=== PATIENT | male | born 1940 | race Caucasian/White ===

== ENCOUNTER 2018-02-07 09:15 | Day surgery (SDC) | payer OTHER ==
[2018-02-03 10:26] LABS: Absolute Lymphocytes (CBC) 0.8 K/uL (0.7-4.9); Absolute Monocytes 0.8 K/uL (0.1-1.3); Absolute Neutrophil 6.7 K/uL (1.8-8.0); Basophils % 0.6 % (0-1.3); Hematocrit 42.5 % (39.6-49.0); Lymphocytes % 9.3 % (15.3-44.8); MCH 30.5 pg (27.0-35.0); MCV 92.9 fL (80-100); MPV 7.9 fL (7.6-11.3); Monocytes % 9.2 % (3.3-12.3); RBC Red Blood Cell Count 4.57 M/uL (4.33-5.43)
[2018-02-03 10:27] LABS: Potassium 4.8 mEq/L (3.6-5.0)
[2018-02-03 10:44] LABS: Protime INR 0.99
--- NOTE | 2018-02-03 10:52 | RAD REPORT ---
EXAM DESCRIPTION: RAD - Chest Pa And Lat (2 Views) - 02/03/2018 10:05 am CLINICAL HISTORY: Preop chest, pending cardiac catheterization and bilateral lower extremity runoff COMPARISON: CT chest January 12, 2017 TECHNIQUE: PA and lateral views of the chest were obtained. FINDINGS: The lungs are mildly fibrotic as a baseline. Right lung volume is normal. No mass or conso lidation in the right lung field. Acute failure or volume overload are not suspected. Trachea is midl ine. Sternotomy wires are in place. Chronic left pleural effusion is present. CT of from 1 year earlier showed loculation in the left bas e. There is also masslike consolidation of lung parenchyma. This is likely chronic atelectasis. Paren chymal opacification is not substantially or clearly different from the comparison. Heart size is u pper normal. Upper lobe vasculature within normal limits. No pneumothorax. No acute bony finding note d. No aortic abnormality. IMPRESSION: Chronic left base pleural and parenchymal opacification not clearly different from the s tudy 1 year earlier. No failure, acute infiltrate or other acute cardiopulmonary finding identifiable.
[2018-02-07] MEDS ORDERED: NA CHLORIDE 0.9% 500 ML ONE (10:22)
[2018-02-07] MEDS ORDERED: HEPA 1000U/500MLS 2,000 UNIT/1,000 ML BAG IV ONE (11:55)
[2018-02-07] MEDS ORDERED: FENTANYL CITR 100 MCG/2 ML ONE ×2 (11:55→16:07)
[2018-02-07] MEDS ORDERED: LIDOCAINE 1% 20 ML MDV ONE ×2 (11:55→12:44)
[2018-02-07] MEDS ORDERED: MIDAZOLAM HCL 2 MG/2 ML INJ ONE ×3 (11:55→12:54)
[2018-02-07] MEDS ORDERED: ATROPINE SULF 1 MG/10 ML SYR IV ONE (11:56)
--- NOTE | 2018-02-08 01:08 | OP ---
Date of Procedure: 02/07/2018 Surgeon: Kelechi Tam MD Machine Set Up Operator: Talya Brunson. Procedure: Abdominal angiogram with runoff. Indication: Peripheral arterial disease. Mr. Lubin is a 77-year-old white male, has known history of peripheral vascular disease, coronary art pedro bypass surgery in the past, claudication, and abnormal arterial Doppler bilaterally. Description Of Procedure: He was brought into the record label internship, had a 6-Belgian sheath introduced in the left common femoral artery. Abdominal angiogram with runoff was done using a pigtail catheter. He h ad normal common iliac artery, normal renals, and normal distal aorta. He had a complete occlusion o f the distal common femoral artery up to proximal superficial femoral artery all the way to the dista l right superficial femoral artery with good distal popliteal on the right. On the left side, he had multiple 90% stenosis in the left SFA. No attempt for intervention was done with catheters. The pa tient tolerated the procedure well. Complications: No complications. Blood Loss: 10 cc. Conscious Sedation Time: Total conscious sedation was 45 minutes. Off Track Betting Manager: Kelechi Tam M.D. Assessment: Severe peripheral arterial disease. Plan: Plan is for bilateral femoral-popliteal surgery. I will consult his surgeons and we will disc uss with him and the family later. JENN/REBEKAH Voice ID: [id number] Report ID: [id number]
== END 2018-02-07 17:30 | disposition home health service (06) ==
LOC: CCL 09:15
PROC: B40DYZZ Plain Radiography of Aorta and Bilateral Lower Extremity Arteries using Other Contrast (ICD-10-PCS; principal; 2018-02-07)
DX: I70.213 Atherosclerosis of native arteries of extremities with intermittent claudication, bilateral legs (principal); I70.92 Chronic total occlusion of artery of the extremities; I25.10 Atherosclerotic heart disease of native coronary artery without angina pectoris; I25.5 Ischemic cardiomyopathy; I65.22 Occlusion and stenosis of left carotid artery; I35.0 Nonrheumatic aortic (valve) stenosis; I10 Essential (primary) hypertension; E78.5 Hyperlipidemia, unspecified; E78.6 Lipoprotein deficiency; Z95.1 Presence of aortocoronary bypass graft; Z91.041 Radiographic dye allergy status; Z88.0 Allergy status to penicillin; Z88.8 Allergy status to other drugs, medicaments and biological substances
CPT/HCPCS: 36200; 36415; 71046; 75630; 80048; 85025; 85610; 85730; J2250 ×3; J3010 ×2; C1893

== ENCOUNTER 2018-09-06 08:25 | Inpatient (IN) | payer OTHER ==
--- OUTSIDE RECORDS SUMMARY | 2018-09-06 08:26 | XMS REPORT | Clinical Summary ---
:1940 Author Organization [facility] Address [address] [place] [address] Care Team Providers Name Role Phone Philipp Berry Unavailable Pcp, No Primary Care Provider Unavailable Allergies Active Allergy Reactions Severity Noted Date Comments Penicillins Rash Low 06/24/2015 Medications Medication Sig Dispensed Refills Start Date End Date Status timolol (TIMOPTIC) 0 01/26/2018 Active 0.5 % ophthalmic solution dorzolamide (TRUSOPT) 0 01/26/2018 Active 2 % ophthalmic solution aspirin 81 MG EC Take 81 mg by 0 Active tablet mouth daily. ascorbic acid, Take 500 mg by 0 Active vitamin C, (ASCORBIC mouth daily. ACID WITH LOBITO HIPS) 500 MG tablet MULTIVIT-MINERALS/KAREN Take by mouth 0 Active EMILIA FUM (MULTI daily. VITAMIN ORAL) naproxen Take 220 mg by 0 Active (ALEVE,ANAPROX,MIDOL) mouth as 220 MG tablet needed. diphenhydrAMINE Take 12.5 mg 0 Active (BENADRYL) 12.5 mg by mouth every chewable tablet night as needed for Allergies. vardenafil (LEVITRA) Take 20 mg by 0 Active 20 MG tablet mouth daily as needed for Erectile Dysfunction. losartan (COZAAR) 100 Take 100 mg by 0 Discontinued MG tablet mouth daily. 8 dorzolamide-timolol Place 1 drop 0 Discontinued (COSOPT) 22.3-6.8 into the left 8 mg/mL ophthalmic eye 2 (two) solutionIndications: times daily. open angle glaucoma travoprost (TRAVATAN Place 1 drop 0 Discontinued Z) 0.004 % Drop into both eyes 8 ophthalmic nightly. 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 07/14/2015 CAD (coronary artery disease) 06/24/2015 Coronary artery disease involving coronary bypass graft of [place] heart 2014 without angina pectoris Peripheral vascular disease Coronary artery disease Hyperlipidemia Hypertension Aortic stenosis Atrial fibrillation Thyroid disease Carotid artery occlusion Ischemic cardiomyopathy Encounters Date Type Specialty Care Team Description 02/14/2018 Office Visit Cardiology Ismael Napoles MD Coronary artery disease involving coronary bypass graft of [place] heart without angina pectoris (Primary Dx); PVD (peripheral vascular disease) (HCC); Peripheral vascular disease (HCC); Coronary artery disease involving [place] coronary artery of [place] heart without angina pectoris; Hyperlipidemia, unspecified hyperlipidemia type; Essential hypertension; Aortic valve stenosis, etiology of cardiac valve disease unspecified; Atrial fibrillation, unspecified type (HCC); Thyroid disease; Occlusion of right carotid artery; Ischemic cardiomyopathy after 09/05/2017 Family History Medical History Relation Name Comments Heart disease Brother Hypertension Brother Heart disease Father Hypertension Father Heart disease Mother Hypertension Mother Relation Name Status Comments Brother Father Mother Social History Tobacco Use Types Packs/Day Years Used Date Former Smoker Cigarettes 1 14 Quit: 1964 Smokeless Tobacco: Never Used Alcohol Use Drinks/Week oz/Week Comments Yes 1 Glasses of wine 4.2 ocassionaly 6 Cans of beer Sex Assigned at Date Recorded Not on file Job Start Date Occupation Industry Not on file Not on file Not on file Travel History Travel Start Travel End No recent travel history available. Last Filed Vital Signs Vital Sign Reading Time Taken Blood Pressure 160/90 02/14/2018 8:01 AM CDT Pulse 85 02/14/2018 7:21 AM CDT Temperature 36.7 C (98.1 F) 02/14/2018 7:21 AM CDT Respiratory Rate 14 02/14/2018 7:21 AM CDT Oxygen Saturation 98% 02/14/2018 7:21 AM CDT Inhaled Oxygen Concentration - - Weight 70.8 kg (156 lb) 02/14/2018 7:21 AM CDT Height 157.5 cm (5' 2") 02/14/2018 7:21 AM CDT Body Mass Index 28.53 02/14/2018 7:21 AM CDT Plan of Treatment Health Maintenance Due Date Last Done Comments INFLUENZA VACCINE 07/10/2018 Results Not on fileafter 09/05/2017 Insurance Payer Benefit Plan / Group Subscriber ID Type Phone Address MEDICARE MEDICARE A B xxxxxxxxxx Medicare Advance Directives For more information, please contact:[address] [phone] Code Status Date Activated Date Inactivated Comments Full Code 06/24/2015 11:15 PM 07/15/2015 1:18 PM This code status was determined by: Patient Full Code 06/24/2015 9:02 PM 06/24/2015 11:15 PM This code status was determined by: Patient Full Code 06/24/2015 7:23 PM 06/24/2015 9:02 PM This code status was determined by: Patient
[2018-09-06 09:19] LABS: Absolute Lymphocytes (CBC) 0.7 K/uL (0.7-4.9); Absolute Monocytes 0.6 K/uL (0.1-1.3); Basophils % 0.9 % (0-1.3); Eosinophils % 1.8 % (0-4.4); Hematocrit 37.5 % (39.6-49.0); MCH 32.9 pg (27.0-35.0); MCV 95.4 fL (80-100); MPV 7.3 fL (7.6-11.3); Monocytes % 7.8 % (3.3-12.3); RBC Red Blood Cell Count 3.93 M/uL (4.33-5.43)
[2018-09-06 09:20] LABS: Protime INR 1.05
[2018-09-06 09:40] LABS: ALT/SGPT 35 U/L (12-78); AST/SGOT 30 U/L (15-37); Albumin 3.5 g/dL (3.4-5.0); Alkaline Phosphatase 95 U/L (45-117); BUN Blood Urea Nitrogen 15 mg/dL (7-18); Bicarbonate 25 mmol/L (21-32); Bilirubin Direct 0.3 mg/dL (0-0.2); Bilirubin Total 0.8 mg/dL (0.2-1.0); Glucose Level 125 mg/dL (74-106); Lipase 228 U/L (73-393); Magnesium 2.2 mg/dL (1.8-2.4); NT PRO-BNP 3799 pg/mL (<450); Potassium 4.4 mmol/L (3.5-5.1); Sodium Level 126 mmol/L (136-145); Troponin (Emerg Dept Use Only) < 0.02 ng/mL (0.0-0.045)
--- NOTE | 2018-09-06 09:46 | EDPHYS ---
Physician Documentation [facility] Name: Jeb Lubin Sr Age: 78 yrs Sex: Male : 1940 Arrival Date: 09/06/2018 Time: 08:33 Bed 5 Private MD: ED Physician Marshal Hill HPI: 09/06 08:52 This 78 yrs old Male presents to ER via EMS with complaints of Shortness Of meggan Breath. 08:52 The patient has shortness of breath at rest, with light activity. Onset: The meggan symptoms/episode began/occurred 2 day(s) ago. Duration: The symptoms are chronic. The patient's shortness of breath has no apparent modifying factors. Associated signs and symptoms: Pertinent positives: non-productive cough. Severity of symptoms: At their worst the symptoms were mild in the emergency department the symptoms are unchanged. Historical: - Allergies: 08:40 PENICILLINS; bp - Home Meds: 08:40 Lovaza 1 gram oral cap [Active]; omega-3 fatty acids oral oral [Active]; bp losartan-hydrochlorothiazide 100-25 mg oral tab [Active]; - PMHx: 08:40 Diabetes - NIDDM; Hypertension; bp - PSHx: 08:40 CABG; bp - Immunization history:: Adult Immunizations up to date. - Social history:: Smoking status: Patient/guardian denies using tobacco. - Ebola Screening: : Patient negative for fever greater than or equal to 101.5 degrees Fahrenheit, and additional compatible Ebola Virus Disease symptoms Patient denies exposure to infectious person Patient denies travel to an Ebola-affected area in the 21 days before illness onset No symptoms or risks identified at this time. - Family history:: not pertinent. ROS: 08:52 Constitutional: Negative for fever, chills, and weight loss, Eyes: Negative for injury, meggan pain, redness, and discharge, ENT: Negative for injury, pain, and discharge, Neck: Negative for injury, pain, and swelling, Abdomen/GI: Negative for abdominal pain, nausea, vomiting, diarrhea, and constipation, Back: Negative for injury and pain, : Negative for injury, bleeding, discharge, and swelling, MS/Extremity: Negative for injury and deformity, Skin: Negative for injury, rash, and discoloration, Neuro: Negative for headache, weakness, numbness, tingling, and seizure, Psych: Negative for depression, anxiety, suicide ideation, homicidal ideation, and hallucinations, Allergy/Immunology: Negative for hives, rash, and allergies, Endocrine: Negative for neck swelling, polydipsia, polyuria, polyphagia, and marked weight changes, Hematologic/Lymphatic: Negative for swollen nodes, abnormal bleeding, and unusual bruising. 08:52 Cardiovascular: Positive for 08:52 Respiratory: Positive for cough, shortness of breath, on exertion. Exam: 08:52 Constitutional: This is a well developed, well nourished patient who is awake, alert, meggan and in no acute distress. Head/Face: Normocephalic, atraumatic. Eyes: Pupils equal round and reactive to light, extra-ocular motions intact. Lids and lashes normal. Conjunctiva and sclera are non-icteric and not injected. Cornea within normal limits. Periorbital areas with no swelling, redness, or edema. ENT: Nares patent. No nasal discharge, no septal abnormalities noted. Tympanic membranes are normal and external auditory canals are clear. Oropharynx with no redness, swelling, or masses, exudates, or evidence of obstruction, uvula midline. Mucous membranes moist. Neck: Trachea midline, no thyromegaly or masses palpated, and no cervical lymphadenopathy. Supple, full range of motion without nuchal rigidity, or vertebral point tenderness. No Meningismus. Chest/axilla: Normal chest wall appearance and motion. Nontender with no deformity. No lesions are appreciated. Cardiovascular: Regular rate and rhythm with a normal S1 and S2. No gallops, murmurs, or rubs. Normal PMI, no JVD. No pulse deficits. Abdomen/GI: Soft, non-tender, with normal bowel sounds. No distension or tympany. No guarding or rebound. No evidence of tenderness throughout. Back: No spinal tenderness. No costovertebral tenderness. Full range of motion. Male : Normal genitalia with no discharge or lesions. Skin: Warm, dry with normal turgor. Normal color with no rashes, no lesions, and no evidence of cellulitis. MS/ Extremity: Pulses equal, no cyanosis. Neurovascular intact. Full, normal range of motion. Neuro: Awake and alert, GCS 15, oriented to person, place, time, and situation. Cranial nerves II-XII grossly intact. Motor strength 5/5 in all extremities. Sensory grossly intact. Cerebellar exam normal. Normal gait. Psych: Awake, alert, with orientation to person, place and time. Behavior, mood, and affect are within normal limits. 08:52 Respiratory: mild respiratory distress is noted, Respirations: normal, Breath sounds: are clear throughout, Respiratory rate: 16 Vital Signs: 08:42 BP 146 / 101; Pulse 88; Resp 16; Temp 97; Pulse Ox 98% ; Weight 71.21 kg; bp 10:00 BP 166 / 102; Pulse 95; Resp 18; Pulse Ox 98% ; bp 12:00 BP 147 / 92; Pulse 92; Resp 17; Pulse Ox 99% ; bp MDM: 08:34 Patient medically screened. [facility] 08:55 Data reviewed: vital signs, nurses notes, lab test result(s), EKG, radiologic studies, meggan plain films. 09/06 08:35 Order name: Basic Metabolic Panel; Complete Time: 09:45 [facility] 09/06 08:35 Order name: CBC with Diff; Complete Time: 09:37 [facility] 09/06 08:35 Order name: LFT's; Complete Time: 09:45 [facility] 09/06 08:35 Order name: Magnesium; Complete Time: 09:45 [facility] 09/06 08:35 Order name: NT PRO-BNP; Complete Time: 09:45 [facility] 09/06 08:35 Order name: PT-INR; Complete Time: 09:37 [facility] 09/06 08:35 Order name: Troponin (emerg Dept Use Only); Complete Time: 09:45 [facility] 09/06 08:35 Order name: XRAY Chest (1 view) [facility] 09/06 08:35 Order name: TSH; Complete Time: 09:45 [facility] 09/06 08:35 Order name: Urine Culture [facility] 09/06 08:36 Order name: Lipase; Complete Time: 09:45 [facility] 09/06 09:47 Order name: Echo w/ Doppler [facility] 09/06 11:04 Order name: Urine Dipstick--Ancillary (enter results) 09/06 11:29 Order name: Urine Dipstick-Ancillary [facility] 09/06 08:35 Order name: EKG; Complete Time: 08:36 [facility] 09/06 08:35 Order name: Cardiac monitoring; Complete Time: 08:41 [facility] 09/06 08:35 Order name: EKG - Nurse/Tech; Complete Time: 08:41 [facility] 09/06 08:35 Order name: IV Saline Lock; Complete Time: 08:41 [facility] 09/06 08:35 Order name: Labs collected and sent; Complete Time: 08:41 [facility] 09/06 08:35 Order name: O2 Per Protocol; Complete Time: 08:41 [facility] 09/06 08:35 Order name: O2 Sat Monitoring; Complete Time: 08:41 [facility] 09/06 08:35 Order name: Urine Dipstick-Ancillary (obtain specimen); Complete Time: 11:09 [facility] 09/06 09:54 Order name: CONS Physician Consult EDMS Administered Medications: 09:46 Not Given (Duplicate Order): NS 0.9% 1000 ml IV at 125 ml/hr continuous meggan 09:58 Drug: Lovenox 1 mg/kg Route: Sub-Q; Site: left upper abdomen; bp 11:08 Follow up: Response: No adverse reaction bp 09:58 Drug: Lopressor 25 mg Route: PO; bp 11:07 Follow up: Response: No adverse reaction bp 09:58 Drug: Lasix 40 mg Route: IVP; Site: right forearm; bp 11:07 Follow up: Response: No adverse reaction bp 09:59 Drug: Pepcid 20 mg Route: IVP; Site: right forearm; bp 11:08 Follow up: Response: No adverse reaction bp Disposition: 09/06/18 09:45 Hospitalization ordered by Johnson John for Observation. Preliminary diagnosis are Dyspnea, Atrial fibrillation and flutter, Unspecified combined systolic (congestive) and diastolic (congestive) heart failure. - Bed requested for Telemetry/MedSurg (observation). - Status is Observation. iw - Condition is Fair. - Problem is new. - Symptoms have improved. UTI on Admission? No Signatures: Dispatcher [employer] EDNV Marshal Hill MD MD cha Williams, Irene, RN RN iw Fitzgerald, Diane, RN RN df Peltier, Brian, RN RN bp Corrections: (The following items were deleted from the chart) 09:46 09:45 Hospitalization Ordered by Johnson John MD for Observation. Preliminary diagnosis meggan is Dyspnea; Atrial fibrillation and flutter. Bed requested for Telemetry/MedSurg (observation). Status is Observation. Condition is Fair. Problem is new. Symptoms have improved. UTI on Admission? No. meggan 11:02 09:46 09/06/2018 09:45 Hospitalization Ordered by Johnson John MD for Observation. df Preliminary diagnosis is Dyspnea; Atrial fibrillation and flutter; Unspecified combined systolic (congestive) and diastolic (congestive) heart failure. Bed requested for Telemetry/MedSurg (observation). Status is Observation. Condition is Fair. Problem is new. Symptoms have improved. UTI on Admission? No. meggan 12:32 11:02 09/06/2018 09:45 Hospitalization Ordered by Johnson John MD for Observation. iw Preliminary diagnosis is Dyspnea; Atrial fibrillation and flutter; Unspecified combined systolic (congestive) and diastolic (congestive) heart failure. Bed requested for Telemetry/MedSurg (observation). Status is Observation. Condition is Fair. Problem is new. Symptoms have improved. UTI on Admission? No. df
--- NOTE | 2018-09-06 09:46 | ER ---
Nurse's Notes [facility] Name: Jeb Lubin Sr Age: 78 yrs Sex: Male : 1940 Arrival Date: 09/06/2018 Time: 08:33 Bed 5 Private MD: Diagnosis: Dyspnea;Atrial fibrillation and flutter;Unspecified combined systolic (congestive) and diastolic (congestive) heart failure Presentation: 09/06 08:33 Presenting complaint: EMS states: SENT FROM CARDIAC REHAB FOR SOB AND NEW AFIB. bp Transition of care: patient was not received from another setting of care. Onset of symptoms was September 06, 2018. Risk Assessment: Do you want to hurt yourself or someone else? Patient reports no desire to harm self or others. Initial Sepsis Screen: Does the patient meet any 2 criteria? HR > 90 bpm. No. Patient's initial sepsis screen is negative. Does the patient have a suspected source of infection? No. Patient's initial sepsis screen is negative. Care prior to arrival: None. 08:33 Method Of Arrival: EMS: [facility] bp 08:33 Acuity: CECILIA 2 bp Triage Assessment: 08:42 General: Appears in no apparent distress. comfortable, Behavior is calm, cooperative, bp appropriate for age. Pain: Denies pain. Respiratory: Reports shortness of breath Onset: The symptoms/episode began/occurred this morning, the patient has mild shortness of breath. Historical: - Allergies: 08:40 PENICILLINS; bp - Home Meds: 08:40 Lovaza 1 gram oral cap [Active]; omega-3 fatty acids oral oral [Active]; bp losartan-hydrochlorothiazide 100-25 mg oral tab [Active]; - PMHx: 08:40 Diabetes - NIDDM; Hypertension; bp - PSHx: 08:40 CABG; bp - Immunization history:: Adult Immunizations up to date. - Social history:: Smoking status: Patient/guardian denies using tobacco. - Ebola Screening: : Patient negative for fever greater than or equal to 101.5 degrees Fahrenheit, and additional compatible Ebola Virus Disease symptoms Patient denies exposure to infectious person Patient denies travel to an Ebola-affected area in the 21 days before illness onset No symptoms or risks identified at this time. - Family history:: not pertinent. Screenin:43 Abuse screen: Denies threats or abuse. Denies injuries from another. Nutritional bp screening: No deficits noted. Tuberculosis screening: No symptoms or risk factors identified. Fall Risk None identified. Assessment: 08:43 General: SEE TRIAGE NOTE. Cardiovascular: Rhythm is atrial fibrillation. Respiratory: bp Airway is patent Respiratory effort is even, Respiratory pattern is regular, symmetrical, Breath sounds are diminished bilaterally. 10:08 Reassessment: ADMIT IN PROCESS, NO ACUTE S/S AT THIS TIME. bp Vital Signs: 08:42 BP 146 / 101; Pulse 88; Resp 16; Temp 97; Pulse Ox 98% ; Weight 71.21 kg; bp 10:00 BP 166 / 102; Pulse 95; Resp 18; Pulse Ox 98% ; bp 12:00 BP 147 / 92; Pulse 92; Resp 17; Pulse Ox 99% ; bp ED Course: 08:33 Patient arrived in ED. bp 08:34 Triage completed. bp 08:34 Marshal Hill MD is Attending Physician. meggan 08:40 Mitch Chao RN is Primary Nurse. bp 08:43 Arm band placed on. bp 08:43 Patient has correct armband on for positive identification. Bed in low position. Call bp light in reach. Side rails up X2. 08:46 Inserted saline lock: 20 gauge in right forearm, using aseptic technique. Blood bp collected. 09:02 X-ray completed. Portable x-ray completed in exam room. Patient tolerated procedure ag1 well. 09:18 XRAY Chest (1 view) In Process Unspecified. EDMS 09:41 Johnson John MD is Hospitalizing Provider. meggan 11:41 No provider procedures requiring assistance completed. Patient admitted, IV remains in bp place. Administered Medications: 09:46 Not Given (Duplicate Order): NS 0.9% 1000 ml IV at 125 ml/hr continuous meggan 09:58 Drug: Lovenox 1 mg/kg Route: Sub-Q; Site: left upper abdomen; bp 11:08 Follow up: Response: No adverse reaction bp 09:58 Drug: Lopressor 25 mg Route: PO; bp 11:07 Follow up: Response: No adverse reaction bp 09:58 Drug: Lasix 40 mg Route: IVP; Site: right forearm; bp 11:07 Follow up: Response: No adverse reaction bp 09:59 Drug: Pepcid 20 mg Route: IVP; Site: right forearm; bp 11:08 Follow up: Response: No adverse reaction bp Outcome: 09:45 Decision to Hospitalize by Provider. meggan 12:09 Admitted to Tele accompanied by tech, family with patient, via stretcher, via bp wheelchair, room 419, with chart, Report called to ALISE ASHBY 12: Condition: stable 12:09 Instructed on the need for admit. 12:32 Patient left the ED. iw Signatures: Dispatcher [employer] EDMarshal Gunter MD MD cha Williams, Irene, RN RN iw Wendy Aguilar ag1 Mitch Chao, RN RN bp
[2018-09-06] MEDS ORDERED: ENOXAPARIN 100 MG/ML SYR SQ ONE (09:51)
[2018-09-06] MEDS ORDERED: FAMOTIDINE 20 MG/2 ML VIAL IV ONE (09:51)
[2018-09-06] MEDS ORDERED: NA CHLORIDE 0.9% 1,000 ML ONE (09:51)
[2018-09-06] MEDS ORDERED: METOPROLOL TAR 25 MG TAB ONE (09:51)
[2018-09-06] MEDS ORDERED: FUROSEMIDE 40 MG/4 ML VIAL ONE (10:00)
[2018-09-06] MEDS ORDERED: ACETAMINOPHEN 500 MG TAB PO PRN (10:40)
[2018-09-06] MEDS ORDERED: ONDANSETRON 4 MG/2 ML VIAL IV PRN (10:40)
[2018-09-06] MEDS ORDERED: METOPROLOL TARTRATE 5 MG/5 ML INJ IV PRN (10:40)
[2018-09-06] MEDS ORDERED: GLUCAGON 1 MG/VIAL IM PRN (10:45)
[2018-09-06] MEDS ORDERED: D50W 25 GM/50 ML SYRINGE IV PRN (10:45)
--- NOTE | 2018-09-06 11:00 | ECHO ---
HEIGHT: 5 ft 4 in WEIGHT: 153 lb oz DATE OF STUDY: 09/06/[address]: Marshal Hill MD 2-DIMENSIONAL: YES M.MODE: YES DOPPLER: YES COLOR FLOW: YES TDS: NO PORTABLE: YES DEFINITY: NO BUBBLE STUDY: NO DIAGNOSIS: CONGESTIVE HEART FAILURE CARDIAC HISTORY: CATHERIZATION: SURGERY: PROSTHETIC VALVE: PACEMAKER: MEASUREMENTS (cm) DIASTOLIC (NORMALS) SYSTOLIC (NORMALS) IVSd 1.1 (0.6-1.2) LA Diam 4.0 (1.9-4.0) LVEF 51% LVIDd 4.7 (3.5-5.7) LVIDs 3.4 (2.0-3.5) %FS 26% LVPWd 1.2 (0.6-1.2) Ao Diam 2.8 (2.0-3.7) 2 DIMENSIONAL ASSESSMENT: RIGHT ATRIUM: NORMAL LEFT ATRIUM: DILATED RIGHT VENTRICLE: NORMAL LEFT VENTRICLE: NORMAL TRICUSPID VALVE: NORMAL MITRAL VALVE: MITRAL ANNULAR CALCIFICATION PULMONIC VALVE: NORMAL AORTIC VALVE: SCLEROSIS PERICARDIAL EFFUSION: NONE AORTIC ROOT: NORMAL LEFT VENTRICULAR WALL MOTION: NORMAL DOPPLER/COLOR FLOW: MODERATE AORTIC STENOSIS. PEAK/ MEAN GRADIENT 38/23. ESTIMATED AORTIC VALVE AREA 1.1 CENTIMETERS SQUARED. MILD AORTIC, MITRAL AND TRICUSPID REGURGITATION. MILD PULMONARY HYPERTENSION. ESTIMATED RIGHT VENTRICULAR SYSTOLIC PRESSURE 46 mmHg. COMMENTS: LOW NORMAL LEFT VENTRICULAR EJECTION FRACTION. DILATED LEFT ATRIUM. MITRAL ANNULAR CALCIFICATION. MODERATE AORTIC STENOSIS. MILD AORTIC, MITRAL AND TRICUSPID REGURGITATION. MILD PULMONARY HYPERTENSION. ATRIAL FIBRILLATION. TECHNOLOGIST: Julianne GODOY
[2018-09-06 11:29] LABS: Urine Blood NEGATIVE (NEG); Urine Glucose NEGATIVE (NEG); Urine Protein NEGATIVE (NEG); Urine Specific Gravity 1.015 (1.005-1.030)
[2018-09-06] MEDS: INSULIN -REGULAR HUMAN 50 UNIT/0.5 ML ML SQ SCH ×3 (11:30→21:00)
--- NOTE | 2018-09-06 11:46 | EKG ---
Test Date: 2018-09-06 Test Time: 08:27:19 Buffing Machine Operator: HEIDI MEASUREMENT RESULTS: Intervals: Rate: 87 MN: QRSD: 90 QT: 362 QTc: 435 [place]: P: MN: QRS: 21 T: 156 INTERPRETIVE STATEMENTS: Atrial fibrillation T wave abnormality, consider lateral ischemia or digitalis effect Abnormal ECG Compared to ECG 03/12/2016 10:04:13 T-wave abnormality now present Possible ischemia now present Sinus rhythm no longer present Sinus arrhythmia no longer present Electronically Signed On 09-06-18 11:44:36 RAKER BUFFING WHEEL by Abraham Segura
[2018-09-06 13:36] VITALS: BMI 26.8
--- NOTE | 2018-09-06 13:41 | RAD REPORT ---
EXAM DESCRIPTION: [place] Single View09/06/2018 9:17 am CLINICAL HISTORY: Cough COMPARISON: January 2018 FINDINGS: Left pleural and parenchymal opacities are without significant change. Mild interstitial pulmonary opacities present bilaterally. The heart is mildly to moderately enlarged. Postsurgical changes involve the chest IMPRESSION: Mild bilateral interstitial lung opacities may indicate mild interstitial pulmonary yosef a. Chronic left pleural and parenchymal opacities
[2018-09-06] MEDS ORDERED: PNEUMOCOCCAL VACCINE 0.5 ML IMVAC ONE (14:00)
--- NOTE | 2018-09-06 15:55 | CON ---
History Of Present Illness: Mr. Lbuin is 78. He came to the hospital with a sudden onset of severe shortness of breath. It was something new to him. He goes to cardiac rehab every day. He had bypas s surgery 3 years ago and has done very well, since then until today. They hooked him up to monitor and noted he was in atrial fibrillation, this is a new rhythm for him. He has a history of periphera l arterial disease and coronary heart disease. He had bypass surgery, multiple stents in his legs. He is not complaining of claudication. He also has moderate aortic stenosis. He has underlying diab etes, hypertension, was a cigarette smoker and many years ago, but has not smoked in quite a long pearl e. Physical Examination: General: He is alert, oriented, pleasant, 71 kg, short stature, mildly obese. Vital Signs: Blood pressure 146/101, pulse 88, and temperature 97. Lungs: Clear. Heart: Reveals a systolic ejection murmur. Irregularly irregular rhythm. Home Medications: Lovaza, losartan, hydrochlorothiazide, there may be some other medicines, but we d o not have an accurate list. I believe he is on a statin drug. Impression: The patient has new onset atrial fibrillation. We will give the Betapace, anticoagulant s, and see if we can get the medicine to switch in normal rhythm. If not, we will do a cardioversion probably on Tuesday. GINI Voice ID: [id number] Report ID: [id number]
[2018-09-06] MEDS: FUROSEMIDE 40 MG/4 ML VIAL IV SCH (17:44)
[2018-09-06] MEDS: SOTALOL HCL 80 MG TAB PO SCH (17:44)
[2018-09-06] MEDS: TIMOLOL MALEATE 0.5% OPTH 5 ML BTL EACH EYE SCH (21:00)
[2018-09-06] MEDS ORDERED: METOPROLOL TAR 50 MG TAB PO SCH (21:00)
[2018-09-06] MEDS ORDERED: ENOXAPARIN 100 MG/ML SYR SQ SCH (21:00)
[2018-09-06] MEDS: DORZOLAMIDE 2% OPTH (10 ML) EACH EYE SCH (21:00)
[2018-09-06] MEDS: ENOXAPARIN 80 MG/0.8 ML SQ SCH (21:12)
[2018-09-06] MEDS: ASPIRIN EC 325 MG TABLET PO SCH (21:12)
[2018-09-06] MEDS ORDERED: TRAZODONE 50 MG TABLET PO ONE (23:30)
--- NOTE | 2018-09-07 02:23 | HP ---
Date of Admission: 09/06/2018 Consultants: Dr. Segura with Cardiology. Chief Complaint: Shortness of breath, weakness, and palpitations. Code Status: Full. History Of Present Illness: The patient is a 78-year-old male with past medical history of borderline diabetes, coronary artery disease status post CABG , and hypertension, who was in his usual state of health until day of admission when the patient had sudden onset of weakness, was not able to walk from his porch to the mail box, trying to get the newspaper and got short winded and felt some palpitations. The patient had to hold onto a tree for balance. The patient therefore came into the ER for further evaluation. His symptoms are constant, moderate, and progressively worsening. Denies any fevers, chills, cough, or sputum production. An onset of symptoms was sudden. In the ER, his workup showed sodium of 126. Troponin was negative. BNP was elevated at 3800. White blood cell count was normal. EKG showed atrial fibrillation with a rate of 87, T-wave abnormality. The patient was given metoprolol, IV fluids, and a dose of Lovenox 1 mg/kg. Atrial fibrillation is new onset for him. The patient was then referred for admission. When seen in the ER, he was awake, alert, and oriented x3, in some mild distress. Past Medical History: Coronary artery disease status post CABG, hypertension, and diabetes mellitus type 2, diet controlled. Past Surgical History: Coronary artery bypass graft. Allergies: TO PENICILLIN. Social History: The patient is , lives with his , independent in his activities of daily living. Denies any tobacco use or alcohol use. No illicit drug use. Does not use any assistive ambulatory devices. Medications: List reviewed. Family History: The patient denies any history of premature coronary artery disease in the family. Review of Systems: Ten-point system reviewed, negative except as per HPI. Physical Examination: Vital Signs: Temperature 97, heart rate 88, blood pressure 146/101, respirations 16, and O2 98% on room air. General: Awake, alert, and oriented x3, in some mild distress. Elderly male, ill appearing. HEENT: Normocephalic, atraumatic. PERRLA. EOMI. Dry mucous membranes. Oropharynx is clear. Conjunctivae anicteric. Neck: Supple. No JVD. Trachea midline. CV: S1, S2. Irregularly irregular. Peripheral pulses present. The patient does have a systolic murmur. Respiratory: Clear to auscultation bilaterally. No wheezing or stridor. Some diminished breath sounds at the bases. Gastrointestinal: Abdomen is soft, nontender, and nondistended. Positive bowel sounds. No guarding or rigidity. Extremities: No clubbing, cyanosis. The patient does have pedal edema. No calf tenderness. Neuro: Cranial nerves 2-12 intact grossly. No focal neurological deficit. His speech is normal. Strength is 5/5, bilateral upper and lower extremities. Skin: No rashes. Normal skin turgor. Psych: Mood is okay. Affect is full. Insight and judgment are good. Laboratory Data: Sodium 126, potassium 4.4, chloride 93, CO2 25, BUN 15, creatinine 1.1, glucose 125, calcium 8.8, and magnesium 2.2. Troponin less than 0.02. BNP 2799. Lipase 228. TSH 2.01. WBC 7.5, H and H 12.9 and 37.5, platelets 327, and neutrophils 80%. INR 1.05. UA is negative. Echocardiogram shows EF 51%, dilated left atrium, mitral annular calcification, moderate aortic stenosis, mild aortic, mitral, and tricuspid regurgitation, and mild pulmonary hypertension. EKG shows atrial fibrillation, rate of 87, T-wave abnormality. Chest x-ray shows mild bilateral interstitial lung opacities, may indicate mild interstitial pulmonary edema, chronic left pleural and parenchymal opacities, personally reviewed. Assessment And Plan: A 78-year-old male with; 1. New onset atrial fibrillation. We will continue with rate control with beta-sue. We will start on Lovenox 1 mg/kg q.12 hours for stroke prophylaxis. We will likely switch to newer anticoagulation agents in the a.m. Cardiology has been consulted. I appreciate Dr. Segura's input. Echocardiogram shows EF of 51%. 2. Acute diastolic CHF: start on CHF guidelines, lasix. Daily weights. Obtain echocardiogram. 3. Hypervolemic hyponatremia. We will continue to monitor sodium. We will place on a free fluid restriction. 4. Normocytic-normochromic anemia. Monitor H and H. 5. Diabetes mellitus, type 2, non-insulin requiring, diet controlled with hyperglycemia. Continue sliding scale insulin and Accu-Cheks. 6. Coronary artery disease status post CABG, [place] artery, [place] heart, and [place] artery, without angina. 7. Essential hypertension, uncontrolled. We will resume home medications as appropriate. 8. Moderate aortic stenosis. 9. Mild pulmonary hypertension. 10. GI and DVT prophylaxis addressed. 11. 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 We will continue Namenda. 12. Glaucoma. Continue timolol. Admit the patient to Med-Surg, place as observation. We will resume home medications as appropriate. Appreciate Dr. Segura's input. Likely discharge in the next 24-48 hours depending on clinical response. /REBEKAH Voice ID: [id number] RENETTA
[2018-09-07 04:06] LABS: Absolute Lymphocytes (CBC) 1.2 K/uL (0.7-4.9); Absolute Monocytes 0.8 K/uL (0.1-1.3); Absolute Neutrophil 4.5 K/uL (1.8-8.0); Basophils % 1.1 % (0-1.3); Eosinophils % 4.4 % (0-4.4); Lymphocytes % 17.5 % (15.3-44.8); MCH 33.1 pg (27.0-35.0); MCV 93.2 fL (80-100); MPV 7.4 fL (7.6-11.3); Monocytes % 11.7 % (3.3-12.3); RBC Red Blood Cell Count 3.43 M/uL (4.33-5.43)
[2018-09-07 04:37] LABS: Bilirubin Total 0.6 mg/dL (0.2-1.0); Potassium 3.8 mmol/L (3.5-5.1); Protein, Total 5.9 g/dL (6.4-8.2)
[2018-09-07] MEDS: SOTALOL HCL 80 MG TAB PO SCH ×2 (05:49→17:37)
[2018-09-07] MEDS: INSULIN -REGULAR HUMAN 50 UNIT/0.5 ML ML SQ SCH ×4 (07:30→20:56)
[2018-09-07] MEDS: FUROSEMIDE 40 MG/4 ML VIAL IV SCH (09:00)
[2018-09-07] MEDS: TIMOLOL MALEATE 0.5% OPTH 5 ML BTL EACH EYE SCH ×2 (09:00→20:57)
[2018-09-07] MEDS: DORZOLAMIDE 2% OPTH (10 ML) EACH EYE SCH ×2 (09:00→20:57)
[2018-09-07] MEDS: MEMANTINE HCL 10 MG TABLET PO SCH (09:31)
[2018-09-07] MEDS: ASPIRIN EC 325 MG TABLET PO SCH ×2 (09:32→20:56)
[2018-09-07] MEDS: LOSARTAN POTASSIUM 50 MG TABLET PO SCH (09:32)
[2018-09-07] MEDS: ENOXAPARIN 80 MG/0.8 ML SQ SCH (09:39)
[2018-09-07] MEDS: FUROSEMIDE 20 MG/ 2ML VIAL IV SCH (17:35)
[2018-09-07] MEDS ORDERED: TRAZODONE 50 MG TABLET PO PRN (18:26)
[2018-09-07] MEDS: DOCOSAHEXANOIC AC/EPA 1000 MG PO SCH (20:55)
[2018-09-07] MEDS ORDERED: RIVAROXABAN 20 MG TABLET PO SCH (21:00)
--- NOTE | 2018-09-07 22:12 | PN ---
Date of Progress Note: 09/07/2018 History: The patient seen and examined. Chart reviewed and case discussed with RN and Dr. Tam. The patient did well overnight, however, still in Afib. Denies any significant shortness of breath. The patient is scheduled for cardiac synchronization 10 a.m. Review of Systems: Negative except as above. Medications: List reviewed. Physical Examination: Vital Signs: Temperature 97.8, heart rate 83, blood pressure 128/74, respirations 18, O2 100% on billy m air. General: Awake, alert, oriented x3. Some mild distress, otherwise doing well. Elderly male. CV: S1, S2. Irregularly irregular. Peripheral pulses present. Respiratory: Moving air well bilaterally. No wheezing. Gastrointestinal: Abdomen is soft, nontender, nondistended. Positive bowel sounds. No guarding or rigidity. Extremities: No clubbing, cyanosis. Trace pedal edema. Neuro: Nonfocal. Laboratory Data: Sodium 129, potassium 3.8, chloride 92, CO2 27, BUN 29, creatinine 1.4, glucose 93, calcium 8.2. WBC 6.9, H and H 11.4 and 32, platelets 304, neutrophils 65%. Urine culture, mixed fl ora. Assessment And Plan: A 78-year-old male with; 1.New onset atrial fibrillation. We will continue with rate control. The patient will be switched to Xarelto for stroke prophylaxis. Echocardiogram shows EF of 51%. The patient will be taken for ca rdioversion in a.m. Appreciate Dr. Tam's input. We will keep patient n.p.o. after midnight. 2.Hypervolemic hyponatremia. We will continue to monitor sodium level improving. Continue free flu id restriction. 3.Normocytic-normochromic anemia. Monitor H and H, transfuse as needed. 4.Diabetes mellitus type 2, non-insulin requiring with hyperglycemia. The patient does not take any home medications, diet controlled. We continue sliding scale insulin and Accu-Cheks. 5.Coronary artery disease, status post coronary artery bypass graft, [place] artery, [place] heart, wi thout angina. 6.Essential hypertension, uncontrolled. 7.Acute diastolic congestive heart failure. Continue with congestive heart failure guidelines. Mon itor I's and O's. Continue daily weight. Free fluid restriction, improving with diuresis. 8.Moderate aortic stenosis. 9.Mild pulmonary hypertension. 10.Dementia, Alzheimer's type, early onset without behavioral disturbance. 11.Glaucoma, on timolol. 12.Gastrointestinal and deep venous thrombosis prophylaxis addressed. Cardioversion in a.m. /REBEKAH Voice ID: [id number] Report ID: [id number]
[2018-09-07] MEDS ORDERED: TRAZODONE 50 MG TABLET PO ONE (22:54)
[2018-09-08] MEDS: SOTALOL HCL 80 MG TAB PO SCH (05:29)
[2018-09-08 06:45] LABS: Absolute Lymphocytes (CBC) 0.8 K/uL (0.7-4.9); Absolute Monocytes 0.8 K/uL (0.1-1.3); Absolute Neutrophil 4.4 K/uL (1.8-8.0); Basophils % 0.8 % (0-1.3); Eosinophils % 4.5 % (0-4.4); Lymphocytes % 12.5 % (15.3-44.8); MCH 32.5 pg (27.0-35.0); MCV 94.1 fL (80-100); MPV 7.6 fL (7.6-11.3); Monocytes % 12.5 % (3.3-12.3); RBC Red Blood Cell Count 3.61 M/uL (4.33-5.43)
[2018-09-08 06:52] LABS: Albumin 3.1 g/dL (3.4-5.0); Bilirubin Total 0.4 mg/dL (0.2-1.0); Potassium 3.8 mmol/L (3.5-5.1); Protein, Total 6.2 g/dL (6.4-8.2)
[2018-09-08] MEDS: INSULIN -REGULAR HUMAN 50 UNIT/0.5 ML ML SQ SCH (07:30)
[2018-09-08] MEDS ORDERED: NA CHLORIDE 0.9% 500 ML ONE (08:32)
[2018-09-08] MEDS ORDERED: MIDAZOLAM HCL 5 MG/5 ML INJ ONE (08:32)
[2018-09-08] MEDS ORDERED: NITROGLYCERIN 0.4 MG/TAB SL PRN (11:00)
[2018-09-08] MEDS ORDERED: NA CHLORIDE 0.9% 1,000 ML IV SCH (11:00)
[2018-09-08] MEDS: ASPIRIN EC 325 MG TABLET PO SCH (11:18)
[2018-09-08] MEDS: MEMANTINE HCL 10 MG TABLET PO SCH (11:18)
[2018-09-08] MEDS: LOSARTAN POTASSIUM 50 MG TABLET PO SCH (11:19)
[2018-09-08] MEDS: DOCOSAHEXANOIC AC/EPA 1000 MG PO SCH (11:19)
[2018-09-08] MEDS: FUROSEMIDE 20 MG/ 2ML VIAL IV SCH (11:19)
[2018-09-08] MEDS: DORZOLAMIDE 2% OPTH (10 ML) EACH EYE SCH (11:22)
[2018-09-08] MEDS: TIMOLOL MALEATE 0.5% OPTH 5 ML BTL EACH EYE SCH (11:22)
--- NOTE | 2018-09-08 13:13 | OP ---
Surgeon: Abraham Segura MD Procedure: Direct current cardioversion. Indication: Atrial fibrillation persisting despite treatment with Betapace. Procedure In Detail: The patient was brought to the cardiac central lab technician in a fasting state, sedated wit h Versed. Anterior-posterior paddles were applied to his chest, 5 mg of Versed was used for an adequ ate level of sedation. A single shock 200 joules was given through AP paddles, synchronized with the QRS complex. This resulted in sinus bradycardia. Successful cardioversion. We will reduce the dos e of Betapace and let him eat, and he could probably be discharged later today. DUNIA/REBEKAH Voice ID: [id number] Report ID: [id number]
--- NOTE | 2018-09-08 14:15 | EKG ---
Test Date: 2018-09-08 Test Time: 08:41:59 Insurance Account Specialist: HEIDI MEASUREMENT RESULTS: Intervals: Rate: 45 AR: 144 QRSD: 92 QT: 534 QTc: 461 [place]: P: 28 AR: 144 QRS: 35 T: 112 INTERPRETIVE STATEMENTS: Marked sinus bradycardia Nonspecific ST and T wave abnormality Prolonged QT Abnormal ECG Compared to ECG 09/06/2018 08:27:19 ST (T wave) deviation now present Prolonged QT interval now present Atrial fibrillation no longer present T-wave abnormality no longer present Possible ischemia no longer present Electronically Signed On 09-08-18 14:14:06 MECHANICAL ENGINEERING SPECIALIST by Abraham Segura
[2018-09-08 14:21] VITALS: O2SAT 94
[2018-09-08 16:42] VITALS: BP 149/69; TEMP 98.2
[2018-09-08] MEDS ORDERED: SOTALOL HCL 80 MG TAB PO SCH (18:00)
--- NOTE | 2018-09-09 06:05 | DS ---
Date of Discharge: 09/08/2018 Consultants: Dr. Segura with Cardiology. Procedures: On 09/08/2018, synchronized cardioversion. Admitting Diagnoses: 1.New onset atrial fibrillation with rapid rate. 2.Acute diastolic congestive heart failure. 3.Hypervolemic hyponatremia. 4.Normocytic normochromic anemia. 5.Diabetes mellitus type 2, xbd-[id number], diet-controlled with hyperglycemia. 6.Coronary artery disease, status post coronary artery bypass graft, [place] artery [place] heart with out angina. 7.Essential hypertension, uncontrolled. 8.Moderate aortic stenosis. 9.Mild pulmonary hypertension. 10.Dementia, Alzheimer type, early onset, without behavioral disturbance. 11.Glaucoma. Discharge Diagnoses: 1.New onset atrial fibrillation with rapid ventricular response, now with controlled ventricular rat e, status post synchronized cardioversion, converted to sinus rhythm. 2.Hypervolemic hyponatremia, improved. 3.Normocytic normochromic anemia. 4.Acute diastolic congestive heart failure, improved. 5.Diabetes mellitus type 2, non-insulin requiring with hyperglycemia. 6.Coronary artery disease, status post coronary artery bypass graft, [place] artery [place] heart with out angina. 7.Essential hypertension, uncontrolled. 8.Moderate aortic stenosis. 9.Mild pulmonary hypertension. 10.Dementia, Alzheimer type, early onset, without behavioral disturbance. 11.Glaucoma. Hospital Course: The patient is a 78-year-old male with past medical history of diabetes, diet contr olled; coronary artery disease, status post CABG; hypertension, comes in with shortness of breath, we akness, and palpitations. The patient was found to be in atrial fibrillation with rapid ventricular rate. He was also found to have congestive heart failure. BNP was elevated. Chest x-ray showed con gestion. The patient was started on diuresis. He is started on CHF guidelines. The patient was ant icoagulated with Lovenox for new onset atrial fibrillation. The patient was seen by senior hardware design engineer, Dr Luis E Segura, and was started on Betapace. The patient did have improvement in his rate, however, was st ill in atrial fibrillation. He was then taken for cardioversion and was successfully converted back to sinus rhythm. The patient's Betapace dose was decreased to 40 b.i.d. and he was switched to Xarel to from Lovenox. He did have some elevated creatinine, which improved likely secondary to IV Lasix. The patient otherwise did well. He was then cleared for discharge. His heart rate remained stable, however hovering in the 50s to 60s. He was asymptomatic, tolerating Betapace well. The patient was then discharged home in a stable condition. Activity: As tolerated. Medications: As per medication reconciliation list. The patient will now be on Xarelto 20 mg daily and Betapace 40 mg twice a day. He will stop the aspirin. Followup: Follow up with primary care physician in 2-3 days. Follow up with senior hardware design engineer, Dr. Hannah alcazar, in 2 weeks. Return to ER for worsening condition. Diet: Diabetic with fluid-restricted, low-sodium diet. Physical Examination: General: Awake, alert, oriented, no acute distress. Elderly male. CV: S1, S2. Regular rate and rhythm. Pulses present. Respiratory: Moving air well bilaterally. Abdomen: Soft, nontender, nondistended. Positive bowel sounds. Extremities: No clubbing, cyanosis, edema. Neurologic: Nonfocal. Total time spent discharging the patient was 43 minutes. BEENA Voice ID: [id number] Report ID: [id number]
--- NOTE | 2018-09-11 12:31 | PN ---
Date of Progress Note: 09/07/2018 Mr. Lubin has been admitted by Dr. John and seen by Dr. Segura for new-onset atrial fibrillation, be lang Betapace 80 mg 1 p.o. b.i.d. He has only got 1 dose the patient is aware and understa nds the risks and the benefits of the procedure and he agrees to proceed. JENN/REBEKAH Voice ID: [id number] Report ID: [id number]
== END 2018-09-08 17:14 | disposition home or self-care (01) | DRG 308 ==
LOC: ER 08:25 → ERHOLD 09:48 → 4TH 12:12 → OBSVTOIN 09-07 13:46
PROVIDERS: ADMIT Family Medicine; ATTEND Family Medicine
PROC: 5A2204Z Restoration of Cardiac Rhythm, Single (ICD-10-PCS; principal; 2018-09-08)
DX: I48.91 Unspecified atrial fibrillation (principal); I50.31 Acute diastolic (congestive) heart failure; E87.1 Hypo-osmolality and hyponatremia; I11.0 Hypertensive heart disease with heart failure; D64.9 Anemia, unspecified; E11.65 Type 2 diabetes mellitus with hyperglycemia; I25.10 Atherosclerotic heart disease of native coronary artery without angina pectoris; Z95.1 Presence of aortocoronary bypass graft; I35.0 Nonrheumatic aortic (valve) stenosis; I27.20 Pulmonary hypertension, unspecified; G30.0 Alzheimer's disease with early onset; F02.80 Dementia in other diseases classified elsewhere, unspecified severity, without behavioral disturbance, psychotic disturbance, mood disturbance, and anxiety; H40.9 Unspecified glaucoma; Z88.0 Allergy status to penicillin
CPT/HCPCS: 36415; 71045; 80048; 80053; 80076; 81003; 82962; 83690; 83735; 83880; 84443; 84484; 85025; 85610; 87086; 87088; 92960; 93005; 93306; 94760; 96372; 96374; 96375; 97163; 99285; G0378; J1650; J1940; J2250; J7030

== ENCOUNTER 2018-09-18 08:39 | Emergency (ER) | payer OTHER ==
--- OUTSIDE RECORDS SUMMARY | 2018-09-18 08:41 | XMS REPORT | Clinical Summary ---
:1940 Author Organization [facility] Address [address] [place] [address] Care Team Providers Name Role Phone Philipp [...] artery disease involving coronary bypass graft of [place] heart 2014 without angina pectoris Peripheral vascular disease Coronary artery disease Hyperlipidemia Hypertension Aortic stenosis Atrial fibrillation Thyroid disease Carotid artery occlusion Ischemic cardiomyopathy Encounters Date Type Specialty Care Team Description 02/14/2018 Office Visit Cardiology Ismael Napoles MD Coronary artery disease involving coronary bypass graft of [place] heart without angina pectoris (Primary Dx); PVD (peripheral vascular disease) (HCC); Peripheral vascular disease (HCC); Coronary artery disease involving [place] coronary artery of [place] heart without angina pectoris; Hyperlipidemia, unspecified hyperlipidemia type; Essential hypertension; Aortic valve stenosis, etiology of cardiac valve disease unspecified; Atrial fibrillation, unspecified type (HCC); Thyroid disease; Occlusion of right carotid artery; Ischemic cardiomyopathy after 09/17/2017 Family History Medical History Relation Name Comments [...] INFLUENZA VACCINE 07/10/2018 Results Not on fileafter 09/17/2017 Insurance Payer Benefit Plan / Group Subscriber ID Type Phone Address MEDICARE MEDICARE A B xxxxxxxxxx Medicare Advance Directives For more information, please contact:[address] [phone] Code Status Date Activated Date Inactivated Comments Full Code 06/24/2015 11:15 PM 07/15/2015 1:18 PM This code status was determined by: Patient Full Code 06/24/2015 9:02 PM 06/24/2015 11:15 PM This code status was determined by: Patient Full Code 06/24/2015 7:23 PM 06/24/2015 9:02 PM This code status was determined by: Patient
[2018-09-18 09:48] LABS: Absolute Lymphocytes (CBC) 0.7 K/uL (0.7-4.9); Absolute Monocytes 0.9 K/uL (0.1-1.3); Absolute Neutrophil 7.7 K/uL (1.8-8.0); Basophils % 0.7 % (0-1.3); Eosinophils % 2.4 % (0-4.4); Hematocrit 36.1 % (39.6-49.0); Lymphocytes % 7.5 % (15.3-44.8); MCH 32.7 pg (27.0-35.0); MCV 94.4 fL (80-100); MPV 8.2 fL (7.6-11.3); Monocytes % 9.4 % (3.3-12.3); RBC Red Blood Cell Count 3.82 M/uL (4.33-5.43)
[2018-09-18 09:55] LABS: Protime INR 1.77
[2018-09-18 10:06] LABS: Potassium 4.1 mmol/L (3.5-5.1)
--- NOTE | 2018-09-18 11:31 | RAD REPORT ---
EXAM DESCRIPTION: CT - Abdomen Pelvis W Contrast - 09/18/2018 11:13 am CLINICAL HISTORY: Rectal bleeding, abdominal pain patient on Xarelto COMPARISON: Chest exam September 06 and February 03, CT chest January 2017 TECHNIQUE: Biphasic, helical CT imaging of the abdomen and pelvis was performed following 100 ml non -ionic IV contrast. Oral contrast was given. All CT scans are performed using dose optimization technique as appropriate and may include automated exposure control or mA/KV adjustment according to patient size. FINDINGS: Heart size is upper normal to slightly enlarged. No pericardial effusion. Minimal right pl eural effusion seen with atelectasis. Pleural thickening is present in the left base and there is an approximately 6 x 3 centimeter area of chronic lung parenchymal opacification. This has not enlarged since January 2017. Small pleural effusion is present. Within the pleural fluid there are several round ed to oval areas of intermediate density. These were not present in the loculated pleural fluid January 2017. This could represent hemorrhagic material within the pleural space. Soft tissue masses are pos sible but lesser in likelihood. The liver, spleen, and pancreas show no suspicious findings. Mottled enhancement pattern of the liver is believed to be related to cardiac function and not liver parenchymal disease. Gallbladder and rickey iary tree are also without suspicious finding. Gallstones can be occult on CT imaging. Symmetric renal function is seen with no hydronephrosis or suspicious renal mass. No pyelonephritis o r acute renal parenchymal process. Urinary bladder shows no suspicious finding. Prostate gland and se nubia vesicles within normal limits. No gastric dilatation or wall thickening. No dilated small bowel or focal small bowel finding. Modera te stool volume is scattered throughout the colon without dilation. Left-sided diverticulosis present without diverticulitis. No rectal mass or wall thickening seen. No focal abnormality as a source for bleeding in the colon. Mucosal level findings can be occult to CT imaging. No free air or pneumatosi s. Trace free fluid in the peritoneal cavity. Intraperitoneal hemorrhage is not suspected. No hernia , mass or bulky lymphadenopathy. No adrenal abnormality. Heterogeneity of the prostate gland is present. This is nonspecific and does not necessarily indicate hemorrhage within the prostate gland. Disc and bony degenerative changes are present. No acute or destructive bone process. Dense arterial tree calcifications are present. No aneurysm or acute vascular finding. 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 No signific ant sellae act disease seen. IMPRESSION: Left-sided colonic diverticulosis is present. No acute diverticulitis confirmed and no mass or mucosal thickening of the colon. No acute finding seen. There is heterogeneity of the prostate gland but no specific finding to ind icate hemorrhage within the prostate gland. Patient has a loculated left pleural effusion with chronic lung parenchymal opacification. The size o f the loculated pleural effusion in the size of the chronic lung parenchymal opacification have not c hanged. Within the loculated pleural fluid are new rounded and oval areas of intermediate density suspicious for hemorrhagic material given the history of Xarelto.
--- NOTE | 2018-09-18 11:46 | EDPHYS ---
Physician Documentation [facility] Name: Jeb Lubin Sr Age: 78 yrs Sex: Male : 1940 Arrival Date: 09/18/2018 Time: 08:41 Bed 14 Private MD: Ismael Miller T ED Physician Andriy Rios HPI: 09/18 09:42 This 78 yrs old Male presents to ER via Ambulatory with complaints of Rectal rn Bleeding. 09:42 The patient presents to the emergency department with bleeding from the rectum/anus, rn that is mild. Onset: The symptoms/episode began/occurred this morning. Modifying factors: The symptoms are alleviated by nothing, The symptoms are aggravated by nothing. The patient has not experienced similar symptoms in the past. Reports rectal bleeding, began this AM, is coming out even without bowel movement, + bright red blood, no abd pain, no vomiting, no diarrhea, just started xarelto last week fo afib, no chest pain/sob. . 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 - Social history:: Smoking status: Patient/guardian denies using tobacco, Patient/guardian denies using alcohol. - Ebola Screening: : Patient negative for fever greater than or equal to 101.5 degrees Fahrenheit, and additional compatible Ebola Virus Disease symptoms Patient denies exposure to infectious person Patient denies travel to an Ebola-affected area in the 21 days before illness onset. - Family history:: not pertinent. - Hospitalizations: : No recent hospitalization is reported. ROS: 09:42 Constitutional: Negative for fever, chills, and weight loss, Eyes: Negative for injury, rn pain, redness, and discharge, Cardiovascular: Negative for chest pain, palpitations, and edema, Respiratory: Negative for shortness of breath, cough, wheezing, and pleuritic chest pain, Abdomen/GI: Negative for abdominal pain, nausea, vomiting, diarrhea, and constipation, Back: Negative for injury and pain, MS/Extremity: Negative for injury and deformity, Skin: Negative for injury, rash, and discoloration, Neuro: Negative for headache, weakness, numbness, tingling, and seizure. Exam: 09:37 Abdomen/GI: Soft, non-tender,. No distension or tympany. No guarding or rebound. No rn evidence of tenderness throughout. + external hemorrhoids, without bleeding, + blood in underwear. 09:42 Constitutional: This is a well developed, well nourished patient who is awake, alert, rn and in no acute distress. Head/Face: Normocephalic, atraumatic. Eyes: Pupils equal round and reactive to light, extra-ocular motions intact. ENT: MMM Cardiovascular: Bradycardic, irregular, no murmur Respiratory: Lungs have equal breath sounds bilaterally, diminished at bases MS/ Extremity: Pulses equal, no cyanosis. Neurovascular intact. Full, normal range of motion. Equal circumference. Neuro: Awake and alert, GCS 15, oriented to person, place, time, and situation. Cranial nerves II-XII grossly intact. Motor strength 5/5 in all extremities. Sensory grossly intact. Vital Signs: 08:57 BP 163 / 73; Pulse 60; Resp 18; Temp 97.7(TE); Pulse Ox 98% on R/A; Weight 71.67 kg; hj Height 5 ft. 5 in. (165.10 cm); Pain 0/10; 09:41 BP 170 / 82; Pulse 53; Resp 16; Pulse Ox 100% on R/A; Pain 0/10; ph 10:31 BP 184 / 64; Pulse 48; Resp 18; Pulse Ox 98% on R/A; ph 12:00 BP 180 / 79; Pulse 51; Resp 20; Pulse Ox 100% on R/A; ph 13:25 BP 187 / 84; Pulse 50; Resp 16; Pulse Ox 99% on R/A; ph 08:57 Body Mass Index 26.29 (71.67 kg, 165.10 cm) hj MDM: 09:09 Patient medically screened. rn 11:44 Differential diagnosis: hemorrhoids, diverticulosis. Data reviewed: vital signs, nurses rn notes, lab test result(s), radiologic studies, CT scan, and as a result, I will admit patient. Counseling: I had a detailed discussion with the patient and/or guardian regarding: the historical points, exam findings, and any diagnostic results supporting the discharge/admit diagnosis, lab results, radiology results, the need for further work-up and treatment in the hospital. Admission orders: after a detailed discussion of the patient's condition and case, the admit orders are written by me. ED course: Pt with diverticulosis, no acute findings on CT, still with small amount of rectal bleeding, just started xarelto, admitted to Dr. Valentine \T\ 1145. . 12:49 ED course: Contacted by Dr. Valentine, who contacted Dr. Castaneda, who requested contacting rn Dr. Puckett, who recommends transfer to [facility] for possible IR intervention if continues to bleed.. 09/18 09:15 Order name: Basic Metabolic Panel; Complete Time: 10:08 rn 09/18 09:15 Order name: CBC with Diff; Complete Time: 10:08 rn 09/18 09:15 Order name: IV Saline Lock; Complete Time: 09:37 rn 09/18 09:15 Order name: PT-INR; Complete Time: 10:08 rn 09/18 09:15 Order name: Ptt, Activated; Complete Time: 10:08 rn 09/18 09:15 Order name: CT Abd/Pelvis - W/Contrast; Complete Time: 11:32 rn 09/18 09:15 Order name: Labs collected and sent; Complete Time: 09:37 rn Administered Medications: No medications were administered Disposition: 09/18/18 14:17 Transfer ordered to [facility]. Diagnosis is Diverticulosis of large intestine without perforation or abscess with bleeding. - Reason for transfer: Higher level of care. - Accepting physician is Dr. Hall. - Condition is Stable. - Problem is new. - Symptoms are unchanged. Signatures: Dispatcher [employer] EDMS Andriy Rios MD MD rn Hall, Patricia, RN RN Terry, Esan, RN RN hj Corrections: (The following items were deleted from the chart) 14:16 11:46 Hospitalization Ordered by Florence Valentine MD for Inpatient Admission. Preliminary rn diagnosis is Rectal bleeding; Diverticulosis of large intestine without perforation or abscess with bleeding. Bed requested for Telemetry/MedSurg (Inpatient). Status is Inpatient Admission. Condition is Stable. Problem is new. Symptoms are unchanged. UTI on Admission? No. rn 15:47 14:17 09/18/2018 14:17 Transfer ordered to [facility]. Diagnosis is ph Diverticulosis of large intestine without perforation or abscess with bleeding. Reason for transfer: Higher level of care. Accepting physician is Dr. Hall. Condition is Stable. Problem is new. Symptoms are unchanged. rn
--- NOTE | 2018-09-18 11:46 | ER ---
Nurse's Notes [facility] Name: Jeb Lubin Sr Age: 78 yrs Sex: Male : 1940 Arrival Date: 09/18/2018 Time: 08:41 Bed 14 Private MD: Ismael Miller T Diagnosis: Diverticulosis of large intestine without perforation or abscess with bleeding Presentation: 09/18 08:51 Presenting complaint: Patient states: sol been taking xarelto for my afib and this hj morning i noticed blood on my underwear; it started today; denies abd pain; denies N/V;. Transition of care: patient was not received from another setting of care. Onset of symptoms was September 18, 2018. Risk Assessment: Do you want to hurt yourself or someone else? Patient reports no desire to harm self or others. Initial Sepsis Screen: Does the patient meet any 2 criteria? No. Patient's initial sepsis screen is negative. Does the patient have a suspected source of infection? No. Patient's initial sepsis screen is negative. Care prior to arrival: None. 08:51 Method Of Arrival: Ambulatory 08:51 Acuity: CECILIA 3 hj Triage Assessment: 08:56 General: Appears in no apparent distress. uncomfortable, Behavior is calm, cooperative, hj appropriate for age. Pain: Denies pain. 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 - Social history:: Smoking status: Patient/guardian denies using tobacco, Patient/guardian denies using alcohol. - Ebola Screening: : Patient negative for fever greater than or equal to 101.5 degrees Fahrenheit, and additional compatible Ebola Virus Disease symptoms Patient denies exposure to infectious person Patient denies travel to an Ebola-affected area in the 21 days before illness onset. - Family history:: not pertinent. - Hospitalizations: : No recent hospitalization is reported. Screenin:56 Abuse screen: Denies threats or abuse. Denies injuries from another. Nutritional hj screening: No deficits noted. Tuberculosis screening: No symptoms or risk factors identified. Fall Risk None identified. Assessment: 09:38 General: Appears in no apparent distress. comfortable, well groomed, Behavior is calm, ph cooperative, appropriate for age, Reports fatigue for >3 days, Denies fever, feeling ill. Pain: Denies pain. Neuro: Level of Consciousness is awake, alert, obeys commands, Oriented to person, place, time, situation. Cardiovascular: Reports fatigue, shortness of breath, Denies chest pain, nausea, palpitations, Capillary refill < 3 seconds in bilateral fingers Patient's skin is warm and dry. Respiratory: Reports shortness of breath on exertion Airway is patent Respiratory effort is even, unlabored, Respiratory pattern is regular, symmetrical. GI: Reports rectal bleeding, Patient currently denies abdominal pain, diarrhea, nausea, vomiting. : No signs and/or symptoms were reported regarding the genitourinary system. Derm: Skin is intact, is fragile, is thin, Skin is pink, warm \T\ dry. Musculoskeletal: Circulation, motion, and sensation intact. Range of motion: intact in all extremities. 09:40 Reassessment: Pt completed PO contrast, Ct notified. ph 10:30 Reassessment: Patient appears in no apparent distress at this time. Patient and/or ph family updated on plan of care and expected duration. Pain level reassessed. Patient is alert, oriented x 3, equal unlabored respirations, skin warm/dry/pink. Pt resting comfortably, awaiting CT scan, family at bedside Patient denies pain at this time. 11:09 Reassessment: Patient appears in no apparent distress at this time. Patient and/or ph family updated on plan of care and expected duration. Pain level reassessed. Patient is alert, oriented x 3, equal unlabored respirations, skin warm/dry/pink. Pt taken to CT via stretcher. 12:00 Reassessment: Patient appears in no apparent distress at this time. Patient and/or ph family updated on plan of care and expected duration. Pain level reassessed. Patient is alert, oriented x 3, equal unlabored respirations, skin warm/dry/pink. Pt resting quietly, awaiting CT results. 13:24 Reassessment: Patient appears in no apparent distress at this time. Patient and/or ph family updated on plan of care and expected duration. Pain level reassessed. Patient is alert, oriented x 3, equal unlabored respirations, skin warm/dry/pink. Pt resting quietly, awaiting transfer, VSS, family at bedside. 14:41 Reassessment: Patient appears in no apparent distress at this time. Patient and/or ph family updated on plan of care and expected duration. Pain level reassessed. Patient is alert, oriented x 3, equal unlabored respirations, skin warm/dry/pink. Report called to Maeve ASHBY at [facility], awaiting EMS for transport. 15:42 Reassessment: Patient appears in no apparent distress at this time. Patient and/or ph family updated on plan of care and expected duration. Pain level reassessed. Patient is alert, oriented x 3, equal unlabored respirations, skin warm/dry/pink. Report given to [facility], pt transferred to [facility]. Vital Signs: 08:57 BP 163 / 73; Pulse 60; Resp 18; Temp 97.7(TE); Pulse Ox 98% on R/A; Weight 71.67 kg; hj Height 5 ft. 5 in. (165.10 cm); Pain 0/10; 09:41 BP 170 / 82; Pulse 53; Resp 16; Pulse Ox 100% on R/A; Pain 0/10; ph 10:31 BP 184 / 64; Pulse 48; Resp 18; Pulse Ox 98% on R/A; ph 12:00 BP 180 / 79; Pulse 51; Resp 20; Pulse Ox 100% on R/A; ph 13:25 BP 187 / 84; Pulse 50; Resp 16; Pulse Ox 99% on R/A; ph 08:57 Body Mass Index 26.29 (71.67 kg, 165.10 cm) ED Course: 08:41 Patient arrived in ED. as 08:41 Ismael Miller MD is Private Physician. as 08:53 Triage completed. hj 08:56 Arm band placed on left wrist. hj 08:57 Patient has correct armband on for positive identification. Placed in gown. Bed in low hj position. Call light in reach. Side rails up X 1. 09:08 Andriy Rios MD is Attending Physician. rn 09:11 Viry Juárez, ISMA is Primary Nurse. ph 09:25 Initial lab(s) drawn, by me, sent to lab. Inserted saline lock: 20 gauge in right ph antecubital area, using aseptic technique. Blood collected. 11:15 CT Abd/Pelvis - W/Contrast In Process Unspecified. EDMS 11:46 Florence Valentine MD is Hospitalizing Provider. rn 12:48 initiated a transfer with Davina at the [facility] transfer center. eb 13:43 connected the GI doctor button sawyer with ED doc for patient transfer consultation. eb 14:02 administrative approval given by Rose Tellez Rn Supervisor Riveting/ Edith Valiente eb has aceepted the patient in transfer/ pt going to [address] [place] [address] Bed 2435/ Report to be called to [phone]. 14:43 No provider procedures requiring assistance completed. Patient transferred, IV remains ph in place. Administered Medications: No medications were administered Outcome: 11:46 Decision to Hospitalize by Provider. rn 14:17 ER care complete, transfer ordered by . rn 15:43 Transferred by ground EMS to [facility], Transfer form completed. ph X-rays sent w/ patient. 15:43 Condition: stable 15:43 Instructed on the need for transfer. 15:47 Patient left the ED. ph Signatures: Dispatcher [employer] EDMS Amanda Michelle as Andriy Rios MD MD rn Viry Juárez, ISMA RN ph Sean Stewart RN RN Bindu Ruiz Corrections: (The following items were deleted from the chart) 08:59 08:57 Pulse 60bpm; Resp 18bpm; Pulse Ox 98% RA; Temp 97.7F Temporal; 71.67 kg; Height 5 hj ft. 5 in.; BMI: 26.2; Pain 0/10; hj
[2018-09-18 16:22] VITALS: TEMP 97.7
[2018-09-18 16:32] VITALS: BP 187/84; O2SAT 99
== END 2018-09-18 15:47 | disposition short-term general hospital (02) ==
LOC: ER 08:39
DX: K57.31 Diverticulosis of large intestine without perforation or abscess with bleeding (principal); I10 Essential (primary) hypertension; I48.91 Unspecified atrial fibrillation; E11.9 Type 2 diabetes mellitus without complications; Z79.01 Long term (current) use of anticoagulants; Z88.0 Allergy status to penicillin
CPT/HCPCS: 36415; 74177; 80048; 85025; 85610; 85730; 99285; Q9967

== ENCOUNTER 2018-10-17 05:01 | Inpatient (IN) | payer OTHER ==
--- OUTSIDE RECORDS SUMMARY | 2018-10-17 05:04 | XMS REPORT | Clinical Summary ---
:1940 Author Organization [facility] Address [address] [place] [address] Care Team Providers Name Role Phone Philipp Berry Unavailable Pcp, No Primary Care Provider Unavailable Allergies Active Allergy Reactions Severity Noted Date Comments Penicillins Rash Low 06/24/2015 Medications Medication Sig Dispensed Refills Start Date End Date Status timolol (TIMOPTIC) Place into 0 01/26/2018 Active 0.5 % ophthalmic both eyes 2 solution (two) times daily . ascorbic acid, Take 1,000 mg 0 Active vitamin C, (ASCORBIC by mouth daily ACID WITH LOBITO HIPS) . 500 MG tablet MULTIVIT-MINERALS/FE Take by mouth 0 Active RROUS FUM (MULTI daily. VITAMIN ORAL) omega-3 acid ethyl Take 2 g by 0 Active esters (LOVAZA) 1 mouth 2 (two) gram capsule times daily. cholecalciferol, Take 5,000 0 Active vitamin D3, 5,000 Units by mouth unit Tab 2 (two) times daily with breakfast and dinner. memantine (NAMENDA) Take 5 mg by 0 Active 5 MG tablet mouth daily. dorzolamide-timolol Place 1 drop 0 Active (COSOPT) 22.3-6.8 into both eyes mg/mL ophthalmic 2 (two) times solution daily. sotalol AF (BETAPACE Take 1 tablet 60 tablet 1 09/28/2018 Active AF) 80 MG tablet (80 mg total) 9 by mouth 2 (two) times daily for 30 days. apixaban (ELIQUIS) 5 Take 1 tablet 60 tablet 1 09/28/2018 Active mg Tab tablet (5 mg total) 9 by mouth 2 (two) times daily for 30 days. atorvastatin Take 1 tablet 30 tablet 0 09/28/2018 Active (LIPITOR) 40 MG (40 mg total) tablet by mouth nightly. clopidogrel (PLAVIX) Take 1 tablet 30 tablet 0 09/29/2018 Active 75 mg tablet (75 mg total) by mouth daily. docusate sodium Take 1 capsule 60 capsule 0 09/28/2018 Active (COLACE) 100 MG (100 mg total) capsule by mouth 2 (two) times daily as needed for Constipation. losartan (COZAAR) Take 1 tablet 30 tablet 0 09/29/2018 Active 100 MG tablet (100 mg total) 9 by mouth daily for 30 days. melatonin 5 mg Tab Take 1 tablet 30 tablet 0 09/28/2018 Active tablet (5 mg total) 9 by mouth every night as needed for up to 30 days. pantoprazole Take 1 tablet 30 tablet 1 09/29/2018 Active (PROTONIX) 40 MG (40 mg total) 9 tablet by mouth daily for 30 days. polyethylene glycol Take 17 g by 510 g 0 09/29/2018 Active (GLYCOLAX) 17 gram mouth daily 9 packet for 30 days. furosemide (LASIX) Take 1 tablet 30 tablet 1 09/29/2018 Active 40 MG tablet (40 mg total) 9 by mouth daily for 30 days. losartan (COZAAR) Take 100 mg by 0 Discontinued 100 MG tablet mouth daily. [address]amide-timolol Place 1 drop 0 Discontinued (COSOPT) 22.3-6.8 into the left 8 mg/mL ophthalmic eye 2 (two) solutionIndications: times daily. open angle glaucoma travoprost (TRAVATAN Place 1 drop 0 Discontinued Z) 0.004 % Drop into both eyes 8 ophthalmic nightly. dropsIndications: open angle glaucoma dorzolamide 0 01/26/2018 Discontinued (TRUSOPT) 2 % 8 ophthalmic solution aspirin 81 MG EC Take 81 mg by 0 Discontinued tablet mouth daily. 8 naproxen Take 220 mg by 0 Discontinued (ALEVE,ANAPROX,MIDOL mouth as 8 ) 220 MG tablet needed. diphenhydrAMINE Take 12.5 mg 0 Discontinued (BENADRYL) 12.5 mg by mouth every 8 chewable tablet night as needed for Allergies. vardenafil (LEVITRA) Take 20 mg by 0 Discontinued 20 MG tablet mouth daily as 8 needed for Erectile Dysfunction. rivaroxaban Take 20 mg by 0 Discontinued (XARELTO) 20 mg Tab mouth daily 8 tablet with dinner. Missing or Take 2 0 Discontinued Non-Formulary capsules by 8 MedicationIndication mouth 2 (two) s: OSTEO BI-FLEX times daily . losartan-hydroCHLORO Take 1 tablet 0 Discontinued thiazide (HYZAAR) by mouth 8 100-25 mg per tablet daily. sotalol AF (BETAPACE Take 40 mg by 0 Discontinued AF) 80 MG tablet mouth 2 (two) 8 times daily. Missing or Take 1 capsule 0 Discontinued Non-Formulary by mouth 8 MedicationIndication daily. s: OCUVITE mINOCYCLine Take 1 capsule 8 capsule 0 09/28/2018 (MINOCIN,DYNACIN) (100 mg total) 8 100 MG capsule by mouth every 12 (twelve) hours for 4 days. Active Problems Problem Noted Date S/P TAVR (transcatheter aortic valve replacement) 09/30/2018 Anemia 09/22/2018 Hyponatremia 09/22/2018 Chest pain 09/20/2018 Lower GI bleed 09/18/2018 S/P CABG (coronary artery bypass graft) 07/14/2015 Fluid overload 07/14/2015 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 07/14/2015 CAD (coronary artery disease) 06/24/2015 Coronary artery disease involving coronary bypass graft of qu[place] heart 2014 without angina pectoris Peripheral vascular disease Hyperlipidemia Hypertension Aortic stenosis Atrial fibrillation Thyroid disease Carotid artery occlusion Ischemic cardiomyopathy Encounters Date Type Specialty Care Team Description 09/25/2018 Surgery Jhonathan Sharma TAVR / [facility] - MD Rakesh PROC ONLY 09/25/2018 Anesthesia Event Eduardo Thomas MD 09/24/2018 Travel 09/22/2018 Surgery Jhonathan Sharma L CATH & CORONARY MD Rakesh ANGIOS 09/20/2018 Anesthesia Event Gastroenterology Kana Reyna CRNA 09/18/2018 - Hospital Encounter Cardiology Devi Hall GI bleed ( Primary Dx); 09/28/2018 MD Kip Atrial fibrillation, unspecified type (HCC); Carleen Martin MD Coronary artery disease involving coronary bypass graft of qu[place] heart without angina pectoris; Valdez Love Hyperlipidemia, unspecified hyperlipidemia type; D Essential hypertension; [place]kov[place]uri, Ischemic cardiomyopathy; MD Melissa S/P CABG (coronary artery bypass graft); 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 ( HCC); Aortic valve stenosis, etiology of cardiac valve disease unspecified; Hypervolemia, unspecified hypervolemia type 09/18/2018 Orders Only Internal Medicine Kip Hall MD 02/14/2018 Office Visit Cardiology Ismael Napoles Coronary artery disease involving coronary bypass graft of [place] heart without angina pectoris ( Primary Dx); MD Andrea PVD (peripheral vascular disease) (HCC); Peripheral vascular disease (HCC); Coronary artery disease involving quinault coronary artery of qu[place]ult heart without angina pectoris; Hyperlipidemia, unspecified hyperlipidemia type; Essential hypertension; Aortic valve stenosis, etiology of cardiac valve disease unspecified; Atrial fibrillation, unspecified type (HCC); Thyroid disease; Occlusion of right carotid artery; Ischemic cardiomyopathy after 10/16/2017 Family History Medical History Relation Name Comments [...] Vital Sign Reading Time Taken Blood Pressure 150/67 09/28/2018 11:20 AM BATTER OUT Pulse 57 09/28/2018 11:20 AM BATTER OUT Temperature 37.1 C (98.8 F) 09/28/2018 11:20 AM BATTER OUT Respiratory Rate 17 09/28/2018 11:20 AM BATTER OUT Oxygen Saturation 97% 09/28/2018 11:20 AM BATTER OUT Inhaled Oxygen Concentration 21% 09/27/2018 8:58 PM BATTER OUT Weight 68.6 kg (151 lb 3.2 oz) 09/26/2018 9:10 AM BATTER OUT Height 157.5 cm (5' 2") 09/24/2018 4:00 PM BATTER OUT Body Mass Index 27.65 09/26/2018 9:10 AM BATTER OUT Plan of Treatment Health Maintenance Due Date Last Done Comments INFLUENZA VACCINE 07/10/2018 Implants Implanted Type Area Joy Operator Device Shelf Model / Identifier Expiration Serial / Date Lot Patch Periph Vascu-Grd 0.8x8cm [id number] - [id number] Tissue N/A: [employer] 05/03/2023 [id number] / Implanted: Qty: 1 on 09/25/2018 by Jhonathan Sharma MD Graft/Subs Aorta TECH:SURG INNOV / titute [id number] Valve Heart Malcolm 3 23mm [id number] - [id number] Valves N/A: VARGAS [employer] 05/07/2020 [id number] / Implanted: Qty: 1 on 09/25/2018 by Jhonathan Sharma MD Aorta [id number] / Procedures Procedure Name Priority Date/Time Associated Diagnosis Comments CARDIAC CATH REPORT - 10/16/2018 9:00 SCAN AM BATTER OUT RHYTHM STRIP - SCAN 10/16/2018 9:00 AM BATTER OUT POCT-GLUCOSE METER Routine 09/28/2018 11:16 Results for AM BATTER OUT this procedure are in the results section. POCT-GLUCOSE METER Routine 09/28/2018 9:07 Results for AM BATTER OUT this procedure are in the results section. CBC W/PLT COUNT & Routine 09/28/2018 3:41 Results for AUTO DIFFERENTIAL AM BATTER OUT this procedure are in the results section. MAGNESIUM Routine 09/28/2018 3:41 Results for AM BATTER OUT this procedure are in the results section. BASIC METABOLIC PANEL Routine 09/28/2018 3:41 Results for (7) AM BATTER OUT this procedure are in the results section. CBC W/PLT COUNT & Routine 09/28/2018 3:41 Results for AUTO DIFFERENTIAL AM BATTER OUT this procedure are in the results section. ECHOCARDIOGRAM REPORT 09/27/2018 2:50 - SCAN PM BATTER OUT 2D ECHO W/ DOPPLER NANCY 09/27/2018 12:00 Results for (CW/PW/COLOR) PM BATTER OUT this procedure are in the results section. CBC W/PLT COUNT & Routine 09/27/2018 3:04 Results for AUTO DIFFERENTIAL AM BATTER OUT this procedure are in the results section. MAGNESIUM Routine 09/27/2018 3:04 Results for AM BATTER OUT this procedure are in the results section. BASIC METABOLIC PANEL Routine 09/27/2018 3:04 Results for (7) AM BATTER OUT this procedure are in the results section. CBC W/PLT COUNT & Routine 09/27/2018 3:04 Results for AUTO DIFFERENTIAL AM BATTER OUT this procedure are in the results section. TRANSFUSION SERVICE 09/26/2018 5:53 REPORT - SCAN PM BATTER OUT MAGNESIUM NANCY 09/26/2018 9:23 Results for AM BATTER OUT this procedure are in the results section. BASIC METABOLIC PANEL NANCY 09/26/2018 9:23 Results for (7) AM BATTER OUT this procedure are in the results section. CBC W/PLT COUNT & STAT 09/26/2018 3:06 Results for AUTO DIFFERENTIAL AM BATTER OUT this procedure are in the results section. CBC W/PLT COUNT & STAT 09/26/2018 3:06 Results for AUTO DIFFERENTIAL AM BATTER OUT this procedure are in the results section. ECG 12-LEAD Routine 09/25/2018 11:59 Results for PM BATTER OUT this procedure are in the results section. PREPARE LEUKO-REDUCED Routine 09/25/2018 6:40 Results for RBC PM BATTER OUT this procedure are in the results section. PREPARE LEUKO-REDUCED STAT 09/25/2018 6:22 Results for RBC PM BATTER OUT this procedure are in the results section. TISSUE EXAM AP Routine 09/25/2018 6:08 Results for PM BATTER OUT this procedure are in the results section. POCT-ACT Routine 09/25/2018 5:40 Results for PM BATTER OUT this procedure are in the results section. POCT-ACT Routine 09/25/2018 5:05 Results for PM BATTER OUT this procedure are in the results section. HGB/HCT (H&H) - STAT STAT 09/25/2018 4:58 Results for LAB PM BATTER OUT this procedure are in the results section. GLUCOSE-STAT LAB STAT 09/25/2018 4:58 Results for PM BATTER OUT this procedure are in the results section. POTASSIUM-STAT LAB STAT 09/25/2018 4:58 Results for PM BATTER OUT this procedure are in the results section. SODIUM NA-STAT LAB STAT 09/25/2018 4:58 Results for PM BATTER OUT this procedure are in the results section. BLOOD GAS, ARTERIAL STAT 09/25/2018 4:58 Results for PM BATTER OUT this procedure are in the results section. RRL CRITICAL LABS STAT 09/25/2018 4:58 Results for (ABG,NA,K,H&H,GLUCOSE PM BATTER OUT this procedure ) are in the results section. POCT-ACT Routine 09/25/2018 4:06 Results for PM BATTER OUT this procedure are in the results section. TAVR / JANE MCR - 09/25/2018 2:20 Atherosclerosis of IP PROC ONLY PM BATTER OUT qu[place] coronary artery of qu[place] heart, angina presence unspecified Case Notes 2435 CV ANESTHESIA / LUKASZ. 1230mGy CONT WAVE PULSED Routine 09/25/2018 12:01 DOPPLER PM BATTER OUT COLOR-FLOW MAPPING Routine 09/25/2018 12:01 PM BATTER OUT TYPE AND SCREEN, Routine 09/25/2018 6:12 Results for this AUTOMATED AM BATTER OUT procedure are in the results section. BASIC METABOLIC Routine 09/25/2018 6:12 Results for this PANEL (7) AM BATTER OUT procedure are in the results section. CBC (HEMOGRAM ONLY) Routine 09/25/2018 6:12 Results for this AM BATTER OUT procedure are in the results section. URINALYSIS W/ REFLEX Routine 09/24/2018 12:43 Results for this URINE CULTURE PM BATTER OUT procedure are in the results section. BASIC METABOLIC Routine 09/24/2018 5:34 Results for this PANEL (7) AM BATTER OUT procedure are in the results section. CBC (HEMOGRAM ONLY) Routine 09/24/2018 5:34 Results for this AM BATTER OUT procedure are in the results section. POCT-GLUCOSE METER Routine 09/23/2018 6:04 Results for this PM BATTER OUT procedure are in the results section. POCT-GLUCOSE METER Routine 09/23/2018 1:04 Results for this PM BATTER OUT procedure are in the results section. US CHEST NANCY 09/23/2018 11:17 Results for this AM BATTER OUT procedure are in the results section. CBC W/PLT COUNT & STAT 09/23/2018 4:35 Results for this AUTO DIFFERENTIAL AM BATTER OUT procedure are in the results section. MAGNESIUM Routine 09/23/2018 4:35 Results for this AM BATTER OUT procedure are in the results section. CBC (HEMOGRAM ONLY) Routine 09/23/2018 4:35 Results for this AM BATTER OUT procedure are in the results section. BASIC METABOLIC Routine 09/23/2018 4:35 Results for this PANEL (7) AM BATTER OUT procedure are in the results section. APTT STAT 09/23/2018 4:35 Results for this AM BATTER OUT procedure are in the results section. PROTHROMBIN TIME/INR STAT 09/23/2018 4:35 Results for this AM BATTER OUT procedure are in the results section. CBC W/PLT COUNT & STAT 09/23/2018 4:35 Results for this AUTO DIFFERENTIAL AM BATTER OUT procedure are in the results section. MAGNESIUM STAT 09/23/2018 4:35 Results for this AM BATTER OUT procedure are in the results section. BASIC METABOLIC STAT 09/23/2018 4:35 Results for this PANEL (7) AM BATTER OUT procedure are in the results section. POCT-GLUCOSE METER Routine 09/22/2018 9:32 Results for this PM BATTER OUT procedure are in the results section. POCT-GLUCOSE METER Routine 09/22/2018 5:22 Results for this PM BATTER OUT procedure are in the results section. MAGNESIUM STAT 09/22/2018 4:51 Results for this PM BATTER OUT procedure are in the results section. BASIC METABOLIC STAT 09/22/2018 4:51 Results for this PANEL (7) PM BATTER OUT procedure are in the results section. POCT-GLUCOSE METER Routine 09/22/2018 12:56 Results for this PM BATTER OUT procedure are in the results section. L CATH & CORONARY 09/22/2018 7:30 Atherosclerosis of ANGIOS AM BATTER OUT qu[place] coronary artery, angina presence unspecified, unspecified whether quinault or transplanted heart Case Notes (1) CASE 2435 POCT-GLUCOSE METER Routine 09/21/2018 9:35 PM BATTER OUT POCT-GLUCOSE METER Routine 09/21/2018 5:[address]/CTA ABDOMEN & PELVIS Routine 09/21/2018 12:[address]/CTA CHEST Routine 09/21/2018 12:03 PM BATTER OUT ARTERIAL DOPPLER LEGS NANCY 09/21/2018 8:51 AM BATTER OUT Results for this BILATERAL procedure are in the results section. CAROTID DOPPLER BILATERAL NANCY 09/21/2018 8:51 AM BATTER OUT BASIC METABOLIC PANEL (7) Routine 09/21/2018 5:37 AM BATTER OUT POCT-GLUCOSE METER Routine 09/20/2018 9:22 PM BATTER OUT ECG 12-LEAD NANCY 09/20/2018 9:16 PM BATTER OUT XR CHEST 1 VIEW STAT 09/20/2018 8:19 PM BATTER OUT Results for this PORTABLE/BEDSIDE procedure are in the results section. POCT-GLUCOSE METER Routine 09/20/2018 4:47 PM BATTER OUT POCT-GLUCOSE METER Routine 09/20/2018 1:50 PM BATTER OUT POCT-GLUCOSE METER Routine 09/20/2018 8:18 AM BATTER OUT BASIC METABOLIC PANEL (7) Routine 09/20/2018 4:42 AM BATTER OUT POCT-GLUCOSE METER Routine 09/19/2018 10:51 PM BATTER OUT POCT-GLUCOSE METER Routine 09/19/2018 6:02 PM BATTER OUT ECHOCARDIOGRAM REPORT - SCAN 09/19/2018 5:50 PM BATTER OUT ECHO W CONTRAST & DOPPLER NANCY 09/19/2018 2:01 PM BATTER OUT HEMOGLOBIN A1C Routine 09/19/2018 9:45 AM BATTER OUT POCT-GLUCOSE METER Routine 09/19/2018 8:20 AM BATTER OUT CBC W/PLT COUNT & AUTO Routine 09/19/2018 6:01 AM BATTER OUT Results for this DIFFERENTIAL procedure are in the results section. TROPONIN I Routine 09/19/2018 6:01 AM BATTER OUT CBC W/PLT COUNT & AUTO Routine 09/19/2018 6:01 AM BATTER OUT Results for this DIFFERENTIAL procedure are in the results section. BASIC METABOLIC PANEL (7) Routine 09/19/2018 6:01 AM BATTER OUT TROPONIN I Routine 09/18/2018 11:53 PM BATTER OUT CBC W/PLT COUNT & AUTO Routine 09/18/2018 6:15 PM BATTER OUT Results for this DIFFERENTIAL procedure are in the results section. B-TYPE NATRIURETIC FACTOR Routine 09/18/2018 6:15 PM BATTER OUT Results for this (BNP) procedure are in the results section. COMPREHENSIVE METABOLIC Routine 09/18/2018 6:15 PM BATTER OUT Results for this PANEL procedure are in the results section. CBC W/PLT COUNT & AUTO Routine 09/18/2018 6:15 PM BATTER OUT Results for this DIFFERENTIAL procedure are in the results section. POCT-GLUCOSE METER Routine 09/18/2018 5:10 PM BATTER OUT after 10/16/2017 Results CARDIAC CATH REPORT - SCAN (10/16/2018 9:00 AM BATTER OUT) Narrative Performed At RHYTHM STRIP - SCAN (10/16/2018 9:00 AM BATTER OUT) Narrative Performed At POC-Glucose meter (09/28/2018 11:16 AM BATTER OUT)Only the most recent of17 resultswithin the time period is included. POC-Glucose Meter 326 (H)Comment: TESTED AT 70 - 110 mg/dL [address] [address] Specimen Blood Performing Organization Address City/State/Zipcode Phone Number [address] [address] CENTER CBC with platelet count + automated diff (09/28/2018 3:41 AM BATTER OUT)Only the most recent of6 resultswithin the time period is included. WBC 9.4 3.5 - 10.5 K/L [facility] RBC 2.67 (L) 4.63 - 6.08 M/L [facility] Hemoglobin 8.4 (L) 13.7 - 17.5 GM/DL [facility] Hematocrit 25.7 (L) 40.1 - 51.0 % [facility] MCV 96.3 (H) 79.0 - 92.2 fL [facility] MCH 31.5 25.7 - 32.2 pg [facility] MCHC 32.7 32.3 - 36.5 GM/DL [facility] RDW 12.4 11.6 - 14.4 % [facility] Platelets 213 150 - 450 K/CU MM [facility] MPV 9.9 9.4 - 12.4 fL [facility] nRBC 0 0 - 0 /100 WBC [facility] % Neutros 70 % [facility] % Lymphs 12 % [facility] % Monos 12 % [facility] % Eos 5 % [facility] % Baso 1 % [facility] # Neutros 6.50 (H) 1.78 - 5.38 K/L [facility] # Lymphs 1.10 (L) 1.32 - 3.57 K/L [facility] # Monos 1.16 (H) 0.30 - 0.82 K/L [facility] # Eos 0.49 0.04 - 0.54 K/L [facility] # Baso 0.05 0.01 - 0.08 K/L [facility] Immature Granulocytes-Relative 1 0 - 1 % [facility] Specimen Blood - Arm, Left Performing Organization Address City/[facility]/Zipcode Phone Number [address] [address] [phone] CENTER Magnesium (09/28/2018 3:41 AM BATTER OUT)Only the most recent of6 resultswithin the time period is included. Magnesium 1.6 1.6 - 2.6 mg/dL [facility] Specimen Blood - Arm, Left Performing Organization Address City/State/Zipcode Phone Number [address] [address] [phone] CENTER Basic Metabolic Panel (09/28/2018 3:41 AM BATTER OUT)Only the most recent of11 resultswithin the time period is included. Sodium 138 136 - 145 meq/L [facility] Potassium 3.6 3.5 - 5.1 meq/L [facility] Chloride 103 98 - 107 meq/L [facility] CO2 27 22 - 29 meq/L [facility] BUN 30 (H) 7 - 21 mg/dL [facility] Creatinine 1.04 0.57 - 1.25 mg/dL [facility] Glucose 115 (H) 70 - 105 mg/dL [facility] Calcium 8.8 8.4 - 10.2 mg/dL [facility] EGFR 69Comment: ESTIMATED GFR IS mL/min/1.73 sq m [facility] NOT ACCURATE CREATININE [facility] CENTER CLEARANCE IN PREDICTING GLOMERULAR FILTRATION RATE. ESTIMATED GFR IS NOT APPLICABLE FOR DIALYSIS PATIENTS. Specimen Blood - Arm, Left Performing Organization Address City/State/Zipcode Phone Number [facility] [phone] [place] [address] CENTER ECHOCARDIOGRAM REPORT - SCAN (09/27/2018 2:50 PM BATTER OUT) Narrative Performed At 2D Echo W/Doppler(CW/PW/Color) (09/27/2018 12:00 PM BATTER OUT) Ejection Fraction [facility] ECHO [facility] Narrative Performed At Transthoracic Echocardiography Report (TTE) [facility] [place] Demographics Patient NameALVA LUBIN Date of Study09/27/2018 SR. Gender Male Visit [id number] Race [id number] Number Date of 1940 Cheri Baron Physician Age 78 year(s) SonographYonathan Cifuentes RDCS Senior Staff Accountant Ju BenitezInterpreting Physician ALANNA Chavez Procedure Type of Study TTE procedure:2DECHO W DOPPLER(CW/PW/COLOR) Indications:S/P TAVR. Clinical History ,A-FIB,CAD,HLD,HTN,ICMP,PVD,ACB X 3 9-1615,HYPOTHYROID Height: 62 inches Weight: 70.76 kg (156 lbs) BSA: 1.72 m^2 BMI: 28.53 kg/m^2 HR: 62 bpm BP: 145/55 mmHg Summary Normal left ventricular chamber size. Mild concentric LV hypertrophy. Normal overall left ventricular systolic function. No apparent segmental wall motion abnormalities. LVEF by Rick's method of disk assessment is normal (>60%) . Grade 2 diastolic dysfunction (moderately increased LA pressure). The prosthetic AoV appears well-seated with normal function by Doppler. Prosthetic AoV systolic gradients are normal . Mean Gradient: 15.68 mmHg. AoV dimensionless obstructive index (DOI)) is 0.43 . Mild Prosthetic AR location is paravalvular at approximately between 2 o''clock. . Estimated peak systolic PA pressure is 35-40 mmHg . Signature Findings Left Ventricle The LV endocardium is well visualized. No rmal left ventricular chamber size. Mi ld concentric LV hypertrophy. Normal overall left ve ntricular systolic function. No apparent se gmental wall motion abnormalities. LV EF by Rick's method of disk assessment is no rmal (>60%) . Gr caesar 2 diastolic dysfunction (moderately increased LA pressure). Left AtriumLA size is severely enlarged (>48 ml/m2) . Right VentricleRV chamber size is normal . Gl obal RV systolic function is normal . Right Atrium RA size is normal. Aortic Valve A percutaneous (TAVR) biologic AoV prosthesis is vi sualized . Th e prosthetic AoV appears well-seated with normal fu nction by Doppler. Pr osthetic AoV systolic gradients are normal . Mean Gr adient: 15.68 mmHg Ao V dimensionless obstructive index (DOI)) is 0.43 . Mi ld Prosthetic AR location is paravalvular at ap proximately between 2 o''clock. . Mitral Valve Mild MV leaflet thickening. Mi ld mitral annular calcification. Mi ld mitral regurgitation. Tricuspid ValveMild tricuspid regurgitation. Es timated peak systolic PA pressure is 35-40 mmHg . Pulmonic Valve Normal PV structure and function. A trace of pulmonary regurgitation. AortaAortic root size (SInus of Valsalva diameter) is no rmal . PericardiumNo significant pericardial effusion is visualized. IVC/SVC/PA/PV/PleuralThe estimated RA pressure by IVC dynamics 5-10mmHg . Th e inferior vena cava size is normal . Chambers/Structures Left Atrium LA Volume: 88.02 ml LA Area: 25.25 cm^2 LA Vol. Index: 51 ml/m^2 Left Ventricle LVIDd: 4.97 cm LVIDs: 3.33 cm LV Septum Diastolic: 1.1 cm LV PW Diastolic: 1.1 cmLV FS: 33 % LVEDV Rikc's:127.15 ml LVESV Rick's:36.06 ml LVEDVI: 74 ml/m^2 LVEF Rick's: 71.6 % LVESVI: 21 ml/m^2 LVOT Diameter: 2 cm Right Atrium RA Vol. (Sngl Plane): 42.33 ml Right Ventricle TAPSE: 1.8 cm Doppler/Quantitative Measurements Mitral Valve MV Peak E-Wave: 1.42 m/sMV Peak A-Wave: 0.64 m/s E/A Ratio: 2.22 Peak Gradient: 8.02 mmHg Deceleration Time: 279.9 msec MV Damon. Peak: Tissue Doppler E' Lateral Velocity: 0.07 m/s E/E': 19.19 Aortic Valve Peak Velocity: 2.89 m/sMean Velocity: 1.82 m/s Peak Gradient: 33.33 mmHgMean Gradient: 15.68 mmHg AV Area (continuity): 1.35 cm^2 AV VTI: 67.82 cm AV DVI: 0.43 LVOT Peak Velocity: 1.2 m/sPeak Gradient: 5.8 mmHg Mean Velocity: 0.79 m/s Mean Gradient: 2.88 mmHg LVOT Diameter: 2 cm LVOT VTI: 29.09 cm LVOT Area: 3.14 cm^2LVOT SV:91.34 ml LVOT CO: 5.66 l/min LVOT CI: 3.29 l/min/m^2 Tricuspid Valve TR Velocity: 2.74 m/s TR Gradient: 30.04 mmHg Procedure Note Interface, External Ris In - 09/27/2018 2:08 PM BATTER OUT Transthoracic Echocardiography Report (TTE) Demographics Patient Name ALVA LUBIN Date of Study 09/27/2018 SR. Gender Male Visit Number [id number] Race Room Number C633 Number Date of 1940 Referring Hernan Baron Physician Age 78 year(s) Supervisor [employer] Bryce Cifuentes [facility] Senior Staff Accountant [employer] Interpreting Physician ALANNA Chavez Procedure Type of Study TTE procedure:2DECHO W DOPPLER(CW/PW/COLOR) Indications:S/P TAVR. Clinical History ,A-FIB,CAD,HLD,HTN,ICMP,PVD,ACB X 3 -16-15,HYPOTHYROID Height: 62 inches Weight: 70.76 kg (156 lbs) BSA: 1.72 m^2 BMI: 28.53 kg/m^2 HR: 62 bpm BP: 145/55 mmHg Summary Normal left ventricular chamber size. Mild concentric LV hypertrophy. Normal overall left ventricular systolic function. No apparent segmental wall motion abnormalities. LVEF by Rick's method of disk assessment is normal (>60%) . Grade 2 diastolic dysfunction (moderately increased LA pressure). The prosthetic AoV appears well-seated with normal function by Doppler. Prosthetic AoV systolic gradients are normal . Mean Gradient: 15.68 mmHg. AoV dimensionless obstructive index (DOI)) is 0.43 . Mild Prosthetic AR location is paravalvular at approximately between 2 o''clock. . Estimated peak systolic PA pressure is 35-40 mmHg . Signature Findings Left Ventricle The LV endocardium is well visualized. Normal left ventricular chamber size. Mild concentric LV hypertrophy. Normal overall left ventricular systolic function. No apparent segmental wall motion abnormalities. LVEF by Rick's method of disk assessment is normal (>60%) . Grade 2 diastolic dysfunction (moderately increased LA pressure). Left Atrium LA size is severely enlarged (>48 ml/m2) . Right Ventricle RV chamber size is normal . Global RV systolic function is normal . Right Atrium RA size is normal. Aortic Valve A percutaneous (TAVR) biologic AoV prosthesis is visualized . The prosthetic AoV appears well-seated with normal function by Doppler. Prosthetic AoV systolic gradients are normal . Mean Gradient: 15.68 mmHg AoV dimensionless obstructive index (DOI)) is 0.43 . Mild Prosthetic AR location is paravalvular at approximately between 2 o''clock. . Mitral Valve Mild MV leaflet thickening. Mild mitral annular calcification. Mild mitral regurgitation. Tricuspid Valve Mild tricuspid regurgitation. Estimated peak systolic PA pressure is 35-40 mmHg . Pulmonic Valve Normal PV structure and function. A trace of pulmonary regurgitation. Aorta Aortic root size (SInus of Valsalva diameter) is normal . Pericardium No significant pericardial effusion is visualized. IVC/SVC/PA/PV/Pleural The estimated RA pressure by IVC dynamics 5-10mmHg . The inferior vena cava size is normal . Chambers/Structures Left Atrium LA Volume: 88.02 ml LA Area: 25.25 cm^2 LA Vol. Index: 51 ml/m^2 Left Ventricle LVIDd: 4.97 cm LVIDs: 3.33 cm LV Septum Diastolic: 1.1 cm LV PW Diastolic: 1.1 cm LV FS: 33 % LVEDV Rick's:127.15 ml LVESV Rick's:36.06 ml LVEDVI: 74 ml/m^2 LVEF Rick's: 71.6 % LVESVI: 21 ml/m^2 LVOT Diameter: 2 cm Right Atrium RA Vol. (Sngl Plane): 42.33 ml Right Ventricle TAPSE: 1.8 cm Doppler/Quantitative Measurements Mitral Valve MV Peak E-Wave: 1.42 m/s MV Peak A-Wave: 0.64 m/s E/A Ratio: 2.22 Peak Gradient: 8.02 mmHg Deceleration Time: 279.9 msec MV Damon. Peak: Tissue Doppler E' Lateral Velocity: 0.07 m/s E/E': 19.19 Aortic Valve Peak Velocity: 2.89 m/s Mean Velocity: 1.82 m/s Peak Gradient: 33.33 mmHg Mean Gradient: 15.68 mmHg AV Area (continuity): 1.35 cm^2 AV VTI: 67.82 cm AV DVI: 0.43 LVOT Peak Velocity: 1.2 m/s Peak Gradient: 5.8 mmHg Mean Velocity: 0.79 m/s Mean Gradient: 2.88 mmHg LVOT Diameter: 2 cm LVOT VTI: 29.09 cm LVOT Area: 3.14 cm^2 LVOT SV:91.34 ml LVOT CO: 5.66 l/min LVOT CI: 3.29 l/min/m^2 Tricuspid Valve TR Velocity: 2.74 m/s TR Gradient: 30.04 mmHg Performing Organization Address City/State/Zipcode Phone Number [facility] TRANSFUSION SERVICE REPORT - SCAN (09/26/2018 5:53 PM BATTER OUT) Narrative Performed At ECG 12 lead (09/25/2018 11:59 PM BATTER OUT)Only the most recent of2 resultswithin the time period is included. Narrative Performed At Ventricular Rate 59 BPM GE MUSE Atrial Rate 59 BPM P-R Interval 138 ms QRS Duration 96 ms Q-T Interval 476 ms QTC Calculation(Bazett) 471 ms P Preston 52 degrees R Preston 23 degrees T Preston 244 degrees Sinus bradycardiawith sinus arrhythmia Mild ST elevation in aVR + ST depression inferolateral leads consider subendocardial ischemia Prolonged QT Abnormal ECG When compared with ECG of 20-SEP-2018 21:16, Sinus arrhythmia now seen Confirmed by MD YANET, FAISAL ([id number]) on 09/26/2018 6:34:11 AM Procedure Note Interface, External Ris In - 09/26/2018 6:34 AM BATTER OUT Ventricular Rate 59 BPM Atrial Rate 59 BPM P-R Interval 138 ms QRS Duration 96 ms Q-T Interval 476 ms QTC Calculation(Bazett) 471 ms P Preston 52 degrees R Preston 23 degrees T Preston 244 degrees Sinus bradycardia with sinus arrhythmia Mild ST elevation in aVR + ST depression inferolateral leads consider subendocardial ischemia Prolonged QT Abnormal ECG When compared with ECG of 20-SEP-2018 21:16, Sinus arrhythmia now seen Confirmed by MD YANET, CRKRISTINA ([id number]) on 09/26/2018 6:34:11 AM Performing Organization Address City/[facility] [place] Phone Number GE MUSE Prepare Leuko-Red RBC (09/25/2018 6:40 PM BATTER OUT)Only the most recent of2 resultswithin the time period is included. CROSSMATCH COMPATIBLE SAFETRACE TX Unit ABO O Pos SAFETRACE TX UNIT NUMBER [id number] SAFETRACE TX Status READY SAFETRACE TX Blood Bank Product RED BLOOD CELLS SAFETRACE TX PRODUCT CODE [id number] SAFETRACE TX CROSSMATCH COMPATIBLE SAFETRACE TX Unit ABO O Pos SAFETRACE TX UNIT NUMBER [id number] SAFETRACE TX Status READY SAFETRACE TX Blood Bank Product RED BLOOD CELLS SAFETRACE TX PRODUCT CODE [id number] SAFETRACE TX Specimen Other Performing Organization Address [facility] [place] Phone Number SAFETRACE TX Tissue Exam (09/25/2018 6:08 PM BATTER OUT) Case Report Surgical Pathology Report Case: [id number] [facility] Authorizing Provider:Jhonathan Sharma MD Collected: 09/25/2018 1808 [facility] Ordering Location: [address] Received: 09/26/2018 09 Service Pathologist: Haris Jeter MD Specimen:Plaque, arterial plaque DIAGNOSIS ARTERY, LEFT FEMORAL, ENDARTERECTOMY: [facility] CALCIFIC ATHEROSCLEROTIC PLAQUE [facility] Signing Pathologist Direct Phone Line: [phone] CPT Code(s) 15998; 43158 [facility] CLINICAL HISTORY Left femoral artery plaque [facility] SPECIMEN SOURCE Arterial plaque [facility] GROSS DESCRIPTION The specimen is received in [facility] saline labeled with the [facility] patient's information labeled "arterial plaque" and consists of previously opened calcified segment of tissue measuring 2.5 cm in length x 0.5 cm in circumference. Cell Tender Helper sections are submitted A1 for decalcification. CG/pl INTRAOPERATIVE CONSULTATION [facility] MICROSCOPIC DESCRIPTION Performed [facility] Specimen Tissue - Plaque Performing Organization Address [facility] [place] Phone Number [address] [address] [phone] [place] POC ACTIVATED CLOTTING TIME (09/25/2018 5:40 PM BATTER OUT)Only the most recent of3 resultswithin the time period is included. Activated Clotting Time 131Comment: TESTED AT sec [address] [address] Specimen Blood Performing Organization Address [facility] [place] Phone Number [address] [address] [phone] [place] Potassium-Stat Lab (09/25/2018 4:58 PM BATTER OUT) Potassium 4.1 3.6 - 5.5 meq/L [facility] Specimen Blood, Arterial Performing Organization Address [facility] [place] Phone Number [address] [address] [place] Sodium Na-Stat Lab (09/25/2018 4:58 PM BATTER OUT) Sodium 132 (L) 135 - 148 meq/L [facility] Specimen Blood, Arterial Performing Organization Address [facility] [place] Phone Number [address] [address] CENTER Glucose-Stat Lab (09/25/2018 4:58 PM BATTER OUT) Glucose 104 70 - 110 mg/dL [facility] Specimen Blood, Arterial Performing Organization Address [facility] [place] Phone Number [address] [address] CENTER HGB/HCT (H&H)-Stat Lab (09/25/2018 4:58 PM BATTER OUT) Hemoglobin 11.2 (L) 13.0 - 16.8 g/dL [facility] Hematocrit 33.0 (L) 40.0 - 50.0 % [facility] Specimen Blood, Arterial Performing Organization Address [facility] Phone Number [address] [address] [phone] CENTER Blood gas, arterial (09/25/2018 4:58 PM BATTER OUT) pH, Arterial 7.36 7.35 - 7.45 [facility] pCO2, Arterial 49 (H) 35 - 45 mmHg [facility] pO2, Arterial 119 (H) 80 - 90 mmHg [facility] O2 Sat, Arterial 98.3 (H) 96.0 - 97.0 % [facility] HCO3, Arterial 28 21 - 29 mmol/L [facility] Base Excess, Arterial 1.2 -2.0 - 3.0 mmol/L [facility] Patient Temperature 35.4 C [facility] FIO2 30.0 % [facility] Specimen Blood, Arterial Performing Organization Address [facility] [place] Phone Number [address] [address] CENTER Type and screen, automated (09/25/2018 6:12 AM BATTER OUT) ABO/RH AUTOMATED (BEAKER) O POSITIVE [facility] Ab Scrn NEGATIVE [facility] Specimen Blood Performing Organization Address City/[facility] Phone Number [address] [address] CBC (Hemogram only) (09/25/2018 6:12 AM BATTER OUT)Only the most recent of3 resultswithin the time period is included. WBC 10.4 3.5 - 10.5 K/L [facility] RBC 3.34 (L) 4.63 - 6.08 M/L [facility] Hemoglobin 10.6 (L) 13.7 - 17.5 GM/DL [facility] Hematocrit 32.7 (L) 40.1 - 51.0 % [facility] MCV 97.9 (H) 79.0 - 92.2 fL [facility] MCH 31.7 25.7 - 32.2 pg [facility] MCHC 32.4 32.3 - 36.5 GM/DL [facility] RDW 12.4 11.6 - 14.4 % [facility] Platelets 248 150 - 450 K/CU MM [facility] MPV 9.4 9.4 - 12.4 fL [facility] nRBC 0 0 - 0 /100 WBC [facility] Specimen Blood Performing Organization Address City/State/Zipcode Phone Number [facility] [address] [place] [address] CENTER Urinalysis w/Microscopic + Reflex to Culture (09/24/2018 12:43 PM BATTER OUT) Color, UA Light Yellow [facility] Clarity, UA Clear [facility] Specific Carnegie, UA 1.006 1.001 - 1.035 [facility] pH, UA 7.0 5.0 - 8.0 [facility] Protein, UA Negative Negative [facility] Glucose, UA Negative Negative [facility] Ketones, UA Negative Negative [facility] Bilirubin, UA Negative Negative [facility] Blood, UA Negative Negative [facility] Nitrite, UA Negative Negative [facility] Leukocytes, UA Negative Negative [facility] Urobilinogen, UA 0.2 0.2 - 1.0 mg/dL [facility] RBC, UA <1 /HPF [facility] WBC, UA <1 /HPF [facility] Specimen Source [facility] Specimen Urine - Urine, Clean Catch Performing Organization Address City/[facility]/Zipcode Phone Number [facility] [address] [place] [address] [phone] CENTER US chest (09/23/2018 11:17 AM BATTER OUT) Narrative Performed At FINAL REPORT [employer] INDICATION: Left pleural effusion Limited left chest ultrasound. IMPRESSION: Ultrasound examination of the left chest was performed in preparation for left thoracentesis. However, only trace amount of fluid is seen in the left pleural space, not amenable for safe drainage. Thoracentesis is therefore not performed. Signed: Reyes Guardado MD Report Verified Date/Time:09/23/2018 11:20:35 Reading Location: [facility] C013 Ortho Consult Reading Room Procedure Note Interface, External Ris In - 09/23/2018 11:22 AM BATTER OUT FINAL REPORT INDICATION: Left pleural effusion Limited left chest ultrasound. IMPRESSION: Ultrasound examination of the left chest was performed in preparation for left thoracentesis. However, only trace amount of fluid is seen in the left pleural space, not amenable for safe drainage. Thoracentesis is therefore not performed. Signed: Reyes Guardado MD Report Verified Date/Time: 09/23/2018 11:20:35 Reading Location: [facility] [id number] Ortho Consult Reading Room Performing Organization Address City/[facility]/Zipcode Phone Number [employer] aPTT (09/23/2018 4:35 AM BATTER OUT) PTT 31.6 22.5 - 36.0 seconds [facility] Specimen Blood - Arm, Right Performing Organization Address City/[facility]/Zipcode Phone Number [facility] [address] [place] [address] [place] Prothrombin time/INR (09/23/2018 4:35 AM BATTER OUT) Protime 14.7 11.7 - 14.7 seconds [facility] INR 1.2 <=5.9 [facility] Specimen Blood - Arm, Right Narrative Performed At RECOMMENDED COUMADIN/WARFARIN INR THERAPY [facility] RANGES STANDARD DOSE: 2.0 - 3.0 Includes: PROPHYLAXIS for venous thrombosis, systemic embolization; TREATMENT for venous thrombosis and/or pulmonary embolus. HIGH RISK: Target INR is 2.5-3.5 for patients with mechanical heart valves. Performing Organization Address [facility] Phone Number [facility] [address] [place] [address] [phone] [place] CTA chest (09/21/2018 12:03 PM BATTER OUT) Narrative Performed At Addendum Begins [facility] REPORT STATUS:A Addendum: There is increased density visualized in the left pleural fluid collection. Clinical correlation is needed if an inflammatory or hemorrhagic process is suspected. I agree with the previously described non vascular findings. Signed: Dorota Russell MD Report Verified Date/Time:09/21/2018 14:55:20 Reading Location: [place] [address] Angio Body Reading Room Addendum Ends FINAL REPORT CT angiography of the thoracoabdominal aorta and pelvic arteries, 21 September 2018 INDICATION: This is a 78 years old male, with a diagnosis of aortic stenosis presents for preprocedure TAVR assessment. This study is performed in an attempt to avoid an invasive procedure. TECHNIQUE: Spiral acquisition before and during intravenous contrast administration using a Gigi multidetector CT scanner. Images were obtained before and during the dynamic passage of intravenous contrast material.Multi-planar 3-D volume-rendering reconstruction was performed using an independent workstation interactively by the interpreting physician as well as the 3-D specialist for optimal visualization of the thoracoabdominal aorta, the pelvic arteries as well as its proximal branches. Please refer to the contrast sheet scanned in the EPIC system for the amount and route of contrast given. This exam was performed according to our departmental dose-optimisation programme, which includes automated exposure control, adjustment of the mA and/or kV according to patient size and/or use of iterative reconstruction technique. Dose modulation, iterative reconstruction, and/or weight based adjustment of the mA/kV was utilized to reduce the radiation dose to as low as reasonably achievable. FINDINGS: VASCULAR: The central pulmonary artery is normal in calibre. The cardiac chambers demonstrate normal atrioventricular and ventriculoarterial concordance, and systemic and pulmonary venous return. The left ventricle is normal in size though left and right atrial enlargement is identified. Coronary artery origins are normal and diffuse coronary artery calcifications identified in the left main, LAD, LCx and RCA territories. Patient is post coronary artery bypass surgery. A left internal mammary graft is identified connecting to the distal LAD and is patent. The RCA itself is occluded, and no bypass graft is seen to the RCA territory. Two further bypass grafts are seen to the left coronary territory presumably to the OM and D1. They are also patent. Correlate with operative report. The left internal mammary artery is immediately behind the chest wall, at image 59, and at this level, it is approximately 3 cm from the midline. The more inferior bypass graft to the left coronary territory has a minimum distance of approximately 17 mm image 108. More superiorly, the other bypass graft, at image 95 had a distance of 16 mm behind the sternum. Mild mitral annular calcification is seen anterior greater than posterior. Patient has a diagnosis of aortic stenosis. The aortic valve is tricuspid. Agatston score is 2095. Aortic valve area is approximately 46 sq mm. The location of aortic valvular calcification can be seen in reformatted data set sent to PACS. Regarding the aorta, minimal calcification is seen in the ascending aorta and and the sinotubular junction is free of calcification. The transverse arch and descending thoracic aorta has mild calcific and noncalcific atherosclerosis identified. The abdominal aorta has circumferential calcific atherosclerosis identified. No acute aortic pathology is seen and no dissection or contained rupture is identified. Arch vessel branching pattern is normal and the visualized arch vessels are seen to be patent proximally. The left subclavian artery is a mixed of both calcific and noncalcific atherosclerosis identified. The minimum luminal diameter is located at image 37, that measures approximately 3.8 x 7.6 mm in diameter. The right subclavian artery has mild calcific atherosclerosis identified, and at image 13, the minimum luminal diameter is at least 6 to 7 mm. Nonobstructing calcification is seen at the origin of the celiac axis. Similar finding seen at the origin of the SMA. At the mid SMA substantial noncalcific atherosclerosis is identified, and a significant focal stenosis is identified. The remainder of the SMA is unremarkable. The LEE ANN is widely patent. The common and the external iliac arteries, bilaterally, are patent with calcific atherosclerosis identified. The left common femoral artery have increased calcific atherosclerosis seen with [id number] lesion identified. The right common femoral artery is unremarkable. However, at the origin of the right SFA, at image 513, it is essentially occluded and more proximally substantial calcific atherosclerosis is present. Dimensions that may be helpful for TAVR as follows: The ascending thoracic aorta is free of calcification. The major and minor aortic annulus diameter measures 25.3 and 18.0 mm, respectively. The aortic annulus perimeter measured 70 mm and the cross-sectional area measures 372 mm2. The aortic annulus diameter at the traditional LVOT and coronal LVOT measures 20.4 and 20.8 mm, respectively. For reference purpose, per VARGAS S3 brochure, recommendation are as follows: CT area between 273 to 345 mm2 (20 mm valve); 338 to 430 mm2 (23 mm valve); 430 to 546 mm2 (26 mm valve); 540 to 683 mm2 (29 mm valve). For reference purpose, per [employer]ve [employer] R brochure, recommendation are as follows: CT perimeter between 56.5-62.8 mm (23 mm valve); 62.8-72.3 mm (26 mm valve); 72.3-81.7 mm (29 mm valve); and 81.7-94.2. mm (34 mm valve). Agatston Score is 2095.Aortic valve area is 46 sq mm. The sinus of Valsalva height to the takeoff of the coronary artery ostium, RCC (diastole): 13.1 mm The sinus of Valsalva height to the takeoff of the coronary artery ostium, LCC (diastole): 14.6 mm The sinus of Valsalva diameter, RCC (diastole): 31.6 mm The sinus of Valsalva diameter, LCC (diastole): 31.2 mm The sinus of Valsalva diameter, NCC (diastole): 32.5 mm Centimeters at the junction measures approximately 28.8 x 28.1 mm. The most inferior bypass graft takeoff is approximately 4.3 cm above the aortic annulus. The aortic root angulation measures 36.7 degrees. The minimal and perpendicular abdominal aortic diameter measure 10. and 11.8 mm, respectively. There is no evidence of thoracoabdominal aortic aneurysm or stent placement present. The minimum and the perpendicular left common iliac artery measures 4.3 and 8.5 mm, respectively with mildtortuosity and moderate focal calcific atherosclerosis present, at the origin of the left common iliac artery, at image 375. The minimum and the perpendicular left external iliac artery measures 6.7 and 7.5 mm, respectively with mild tortuosity and mildcalcific atherosclerosis present. The minimum and the perpendicular left femoral artery measures 5.6 and 6.1 mm, respectively with mildtortuosity and mild to moderatecalcific atherosclerosis present. The minimum and the perpendicular right common iliac artery measures 6.5 and 8.1 mm, respectively with mildtortuosity and mild diffuse calcific atherosclerosis present. The minimum and the perpendicular rightexternal iliac artery measures 5.8 and 5.9 mm, respectively with mildtortuosity and mildcalcific atherosclerosis present. The minimum and the perpendicular right femoral artery measures 4.0 and 4.5 mm, respectively with mildtortuosity and moderate significant focalcalcific atherosclerosis present, at image 507, just above the mid level of the right femoral head. In addition, more inferiorly on the most distal right common femoral artery/origin of the right SFA, severe calcification is seen, for example at image 511-513. NONVASCULAR: The visualised thyroid gland appears unremarkable. The chest wall and mediastinum has no acute abnormalities identified. The patient is post median sternotomy. The RV free wall is in close proximity to the sternum, and at image 171 it is 4 mm posterior to the chest wall. A number of lymph nodes are seen in mediastinum, overall small in size, some has fatty hilum, considered nonspecific in nature. Calcified granuloma is identified in the right hilum indicating prior granulomatous disease. In the lung windows, no obvious endobronchial lesion is seen, and bibasal pleural effusions identified, with associated atelectatic changes/consolidation. Note, the left basal pleural effusion appears somewhat dense by Hounsfield unit measurement. An addendum will dictated thereafter, if needed. Pulmonary vasculature is prominent indicating underlying cardiac congestion. Some subsegmental atelectatic changes are seen. Calcified nodules are seen scattered in the right lung field indicating prior granulomatous disease. Overall, no suspicious pulmonary nodule is identified. In the abdomen, the liver and spleen appears unremarkable. The liver edge is smooth. No abnormal enhancing structures identified. The gallbladder appears unremarkable. The adrenal glands are not enlarged. The pancreas and gallbladder has no gross abnormality identified. No acute renal pathology is seen and no hydronephrosis or perirenal fluid collections identified. Bowel is not well assessed by CT angiography as enteric contrast is not given. No obvious bowel dilation is identified. Scattered diverticular disease is seen in the sigmoid colon with no evidence of acute diverticulitis. The prostate gland is mildly prominent with punctate calcification identified. The bladder appears unremarkable. In the bony windows, no acute bony pathology is identified. Some degenerative changes are noted. CONCLUSIONS: 1.Patient has a diagnosis of aortic stenosis. Aortic valve is tricuspid. Agatston score is over 2000. Mild mitral annular calcification is seen bilaterally. Aortic valve area is approximately 46 sq mm. No calcification is seen in the ascending thoracic aorta. Dimensions that may be helpful for TAVR as described above. Substantial disease identified at the origin of the right SFA - see above for details. 2.Coronary atherosclerosis. Patient is post coronary artery bypass surgery. Left ventricular enlargement and left atrial prominence. 3.Bibasal pleural effusion right greater than left. Pulmonary vasculature is prominent indicating cardiac congestion. Evidence of prior granulomatous disease. 4.Other findings as described above. 5.An addendum will be dictated by the Flute Teacher Radiologist regarding the nonvascular findings. Signed: Shawn Barnes MD Report Verified Date/Time:09/21/2018 14:01:54 Reading Location: [place] [address] Cardiology MRI Procedure Note Interface, External Ris In - 09/21/2018 2:57 PM BATTER OUT Addendum Begins REPORT STATUS:A Addendum: There is increased density visualized in the left pleural fluid collection. Clinical correlation is needed if an inflammatory or hemorrhagic process is suspected. I agree with the previously described non vascular findings. Signed: Dorota Russell MD Report Verified Date/Time: 09/21/2018 14:55:20 Reading Location: [facility] P048 Angio Body Reading Room Addendum Ends FINAL REPORT CT angiography of the thoracoabdominal aorta and pelvic arteries, 21 September 2018 INDICATION: This is a 78 years old male, with a diagnosis of aortic stenosis presents for preprocedure TAVR assessment. This study is performed in an attempt to avoid an invasive procedure. TECHNIQUE: Spiral acquisition before and during intravenous contrast administration using a Gigi multidetector CT scanner. Images were obtained before and during the dynamic passage of intravenous contrast material. Multi-planar 3-D volume-rendering reconstruction was performed using an independent workstation interactively by the interpreting physician as well as the 3-D specialist for optimal visualization of the thoracoabdominal aorta, the pelvic arteries as well as its proximal branches. Please refer to the contrast sheet scanned in the EPIC system for the amount and route of contrast given. This exam was performed according to our departmental dose-optimisation programme, which includes automated exposure control, adjustment of the mA and/or kV according to patient size and/or use of iterative reconstruction technique. Dose modulation, iterative reconstruction, and/or weight based adjustment of the mA/kV was utilized to reduce the radiation dose to as low as reasonably achievable. FINDINGS: VASCULAR: The central pulmonary artery is normal in calibre. The cardiac chambers demonstrate normal atrioventricular and ventriculoarterial concordance, and systemic and pulmonary venous return. The left ventricle is normal in size though left and right atrial enlargement is identified. Coronary artery origins are normal and diffuse coronary artery calcifications identified in the left main, LAD, LCx and RCA territories. Patient is post coronary artery bypass surgery. A left internal mammary graft is identified connecting to the distal LAD and is patent. The RCA itself is occluded, and no bypass graft is seen to the RCA territory. Two further bypass grafts are seen to the left coronary territory presumably to the OM and D1. They are also patent. Correlate with operative report. The left internal mammary artery is immediately behind the chest wall, at image 59, and at this level, it is approximately 3 cm from the midline. The more inferior bypass graft to the left coronary territory has a minimum distance of approximately 17 mm image 108. More superiorly, the other bypass graft, at image 95 had a distance of 16 mm behind the sternum. Mild mitral annular calcification is seen anterior greater than posterior. Patient has a diagnosis of aortic stenosis. The aortic valve is tricuspid. Agatston score is 2095. Aortic valve area is approximately 46 sq mm. The location of aortic valvular calcification can be seen in reformatted data set sent to PACS. Regarding the aorta, minimal calcification is seen in the ascending aorta and and the sinotubular junction is free of calcification. The transverse arch and descending thoracic aorta has mild calcific and noncalcific atherosclerosis identified. The abdominal aorta has circumferential calcific atherosclerosis identified. No acute aortic pathology is seen and no dissection or contained rupture is identified. Arch vessel branching pattern is normal and the visualized arch vessels are seen to be patent proximally. The left subclavian artery is a mixed of both calcific and noncalcific atherosclerosis identified. The minimum luminal diameter is located at image 37, that measures approximately 3.8 x 7.6 mm in diameter. The right subclavian artery has mild calcific atherosclerosis identified, and at image 13, the minimum luminal diameter is at least 6 to 7 mm. Nonobstructing calcification is seen at the origin of the celiac axis. Similar finding seen at the origin of the SMA. At the mid SMA substantial noncalcific atherosclerosis is identified, and a significant focal stenosis is identified. The remainder of the SMA is unremarkable. The LEE ANN is widely patent. The common and the external iliac arteries, bilaterally, are patent with calcific atherosclerosis identified. The left common femoral artery have increased calcific atherosclerosis seen with [id number] lesion identified. The right common femoral artery is unremarkable. However, at the origin of the right SFA, at image 513, it is essentially occluded and more proximally substantial calcific atherosclerosis is present. Dimensions that may be helpful for TAVR as follows: The ascending thoracic aorta is free of calcification. The major and minor aortic annulus diameter measures 25.3 and 18.0 mm, respectively. The aortic annulus perimeter measured 70 mm and the cross-sectional area measures 372 mm2. The aortic annulus diameter at the traditional LVOT and coronal LVOT measures 20.4 and 20.8 mm, respectively. For reference purpose, per VARGAS S3 brochure, recommendation are as follows: CT area between 273 to 345 mm2 (20 mm valve); 338 to 430 mm2 (23 mm valve); 430 to 546 mm2 (26 mm valve); 540 to 683 mm2 (29 mm valve). For reference purpose, per CoreValve Evolut R brochure, recommendation are as follows: CT perimeter between 56.5-62.8 mm (23 mm valve); 62.8-72.3 mm (26 mm valve); 72.3-81.7 mm (29 mm valve); and 81.7-94.2. mm (34 mm valve). Agatston Score is 2095. Aortic valve area is 46 sq mm. The sinus of Valsalva height to the takeoff of the coronary artery ostium, RCC (diastole): 13.1 mm The sinus of Valsalva height to the takeoff of the coronary artery ostium, LCC (diastole): 14.6 mm The sinus of Valsalva diameter, RCC (diastole): 31.6 mm The sinus of Valsalva diameter, LCC (diastole): 31.2 mm The sinus of Valsalva diameter, NCC (diastole): 32.5 mm Centimeters at the junction measures approximately 28.8 x 28.1 mm. The most inferior bypass graft takeoff is approximately 4.3 cm above the aortic annulus. The aortic root angulation measures 36.7 degrees. The minimal and perpendicular abdominal aortic diameter measure 10. and 11.8 mm, respectively. There is no evidence of thoracoabdominal aortic aneurysm or stent placement present. The minimum and the perpendicular left common iliac artery measures 4.3 and 8.5 mm, respectively with mild tortuosity and moderate focal calcific atherosclerosis present, at the origin of the left common iliac artery, at image 375. The minimum and the perpendicular left external iliac artery measures 6.7 and 7.5 mm, respectively with mild tortuosity and mild calcific atherosclerosis present. The minimum and the perpendicular left femoral artery measures 5.6 and 6.1 mm, respectively with mild tortuosity and mild to moderate calcific atherosclerosis present. The minimum and the perpendicular right common iliac artery measures 6.5 and 8.1 mm, respectively with mild tortuosity and mild diffuse calcific atherosclerosis present. The minimum and the perpendicular right external iliac artery measures 5.8 and 5.9 mm, respectively with mild tortuosity and mild calcific atherosclerosis present. The minimum and the perpendicular right femoral artery measures 4.0 and 4.5 mm, respectively with mild tortuosity and moderate significant focal calcific atherosclerosis present, at image 507, just above the mid level of the right femoral head. In addition, more inferiorly on the most distal right common femoral artery/origin of the right SFA, severe calcification is seen, for example at image 511-513. NONVASCULAR: The visualised thyroid gland appears unremarkable. The chest wall and mediastinum has no acute abnormalities identified. The patient is post median sternotomy. The RV free wall is in close proximity to the sternum, and at image 171 it is 4 mm posterior to the chest wall. A number of lymph nodes are seen in mediastinum, overall small in size, some has fatty hilum, considered nonspecific in nature. Calcified granuloma is identified in the right hilum indicating prior granulomatous disease. In the lung windows, no obvious endobronchial lesion is seen, and bibasal pleural effusions identified, with associated atelectatic changes/consolidation. Note, the left basal pleural effusion appears somewhat dense by Hounsfield unit measurement. An addendum will dictated thereafter, if needed. Pulmonary vasculature is prominent indicating underlying cardiac congestion. Some subsegmental atelectatic changes are seen. Calcified nodules are seen scattered in the right lung field indicating prior granulomatous disease. Overall, no suspicious pulmonary nodule is identified. In the abdomen, the liver and spleen appears unremarkable. The liver edge is smooth. No abnormal enhancing structures identified. The gallbladder appears unremarkable. The adrenal glands are not enlarged. The pancreas and gallbladder has no gross abnormality identified. No acute renal pathology is seen and no hydronephrosis or perirenal fluid collections identified. Bowel is not well assessed by CT angiography as enteric contrast is not given. No obvious bowel dilation is identified. Scattered diverticular disease is seen in the sigmoid colon with no evidence of acute diverticulitis. The prostate gland is mildly prominent with punctate calcification identified. The bladder appears unremarkable. In the bony windows, no acute bony pathology is identified. Some degenerative changes are noted. CONCLUSIONS: 1. Patient has a diagnosis of aortic stenosis. Aortic valve is tricuspid. Agatston score is over 2000. Mild mitral annular calcification is seen bilaterally. Aortic valve area is approximately 46 sq mm. No calcification is seen in the ascending thoracic aorta. Dimensions that may be helpful for TAVR as described above. Substantial disease identified at the origin of the right SFA - see above for details. 2. Coronary atherosclerosis. Patient is post coronary artery bypass surgery. Left ventricular enlargement and left atrial prominence. 3. Bibasal pleural effusion right greater than left. Pulmonary vasculature is prominent indicating cardiac congestion. Evidence of prior granulomatous disease. 4. Other findings as described above. 5. An addendum will be dictated by the Flute Teacher Radiologist regarding the nonvascular findings. Signed: Shawn Barnes MD Report Verified Date/Time: 09/21/2018 14:01:54 Reading Location: [place] [address] Cardiology MRI Performing Organization Address City/State/Zipcode Phone Number [facility] CTA abdomen & pelvis (09/21/2018 12:03 PM BATTER OUT) Narrative Performed At Addendum Begins [facility] REPORT STATUS:A Addendum: There is increased density visualized in the left pleural fluid collection. Clinical correlation is needed if an inflammatory or hemorrhagic process is suspected. I agree with the previously described non vascular findings. Signed: Dorota Russell MD Report Verified Date/Time:09/21/2018 14:55:20 Reading Location: [place] [address] Angio Body Reading Room Addendum Ends FINAL REPORT CT angiography of the thoracoabdominal aorta and pelvic arteries, 21 September 2018 INDICATION: This is a 78 years old male, with a diagnosis of aortic stenosis presents for preprocedure TAVR assessment. This study is performed in an attempt to avoid an invasive procedure. TECHNIQUE: Spiral acquisition before and during intravenous contrast administration using a Gigi multidetector CT scanner. Images were obtained before and during the dynamic passage of intravenous contrast material.Multi-planar 3-D volume-rendering reconstruction was performed using an independent workstation interactively by the interpreting physician as well as the 3-D specialist for optimal visualization of the thoracoabdominal aorta, the pelvic arteries as well as its proximal branches. Please refer to the contrast sheet scanned in the EPIC system for the amount and route of contrast given. This exam was performed according to our departmental dose-optimisation programme, which includes automated exposure control, adjustment of the mA and/or kV according to patient size and/or use of iterative reconstruction technique. Dose modulation, iterative reconstruction, and/or weight based adjustment of the mA/kV was utilized to reduce the radiation dose to as low as reasonably achievable. FINDINGS: VASCULAR: The central pulmonary artery is normal in calibre. The cardiac chambers demonstrate normal atrioventricular and ventriculoarterial concordance, and systemic and pulmonary venous return. The left ventricle is normal in size though left and right atrial enlargement is identified. Coronary artery origins are normal and diffuse coronary artery calcifications identified in the left main, LAD, LCx and RCA territories. Patient is post coronary artery bypass surgery. A left internal mammary graft is identified connecting to the distal LAD and is patent. The RCA itself is occluded, and no bypass graft is seen to the RCA territory. Two further bypass grafts are seen to the left coronary territory presumably to the OM and D1. They are also patent. Correlate with operative report. The left internal mammary artery is immediately behind the chest wall, at image 59, and at this level, it is approximately 3 cm from the midline. The more inferior bypass graft to the left coronary territory has a minimum distance of approximately 17 mm image 108. More superiorly, the other bypass graft, at image 95 had a distance of 16 mm behind the sternum. Mild mitral annular calcification is seen anterior greater than posterior. Patient has a diagnosis of aortic stenosis. The aortic valve is tricuspid. Agatston score is 2095. Aortic valve area is approximately 46 sq mm. The location of aortic valvular calcification can be seen in reformatted data set sent to PACS. Regarding the aorta, minimal calcification is seen in the ascending aorta and and the sinotubular junction is free of calcification. The transverse arch and descending thoracic aorta has mild calcific and noncalcific atherosclerosis identified. The abdominal aorta has circumferential calcific atherosclerosis identified. No acute aortic pathology is seen and no dissection or contained rupture is identified. Arch vessel branching pattern is normal and the visualized arch vessels are seen to be patent proximally. The left subclavian artery is a mixed of both calcific and noncalcific atherosclerosis identified. The minimum luminal diameter is located at image 37, that measures approximately 3.8 x 7.6 mm in diameter. The right subclavian artery has mild calcific atherosclerosis identified, and at image 13, the minimum luminal diameter is at least 6 to 7 mm. Nonobstructing calcification is seen at the origin of the celiac axis. Similar finding seen at the origin of the SMA. At the mid SMA substantial noncalcific atherosclerosis is identified, and a significant focal stenosis is identified. The remainder of the SMA is unremarkable. The LEE ANN is widely patent. The common and the external iliac arteries, bilaterally, are patent with calcific atherosclerosis identified. The left common femoral artery have increased calcific atherosclerosis seen with [id number] lesion identified. The right common femoral artery is unremarkable. However, at the origin of the right SFA, at image 513, it is essentially occluded and more proximally substantial calcific atherosclerosis is present. Dimensions that may be helpful for TAVR as follows: The ascending thoracic aorta is free of calcification. The major and minor aortic annulus diameter measures 25.3 and 18.0 mm, respectively. The aortic annulus perimeter measured 70 mm and the cross-sectional area measures 372 mm2. The aortic annulus diameter at the traditional LVOT and coronal LVOT measures 20.4 and 20.8 mm, respectively. For reference purpose, per VARGAS S3 brochure, recommendation are as follows: CT area between 273 to 345 mm2 (20 mm valve); 338 to 430 mm2 (23 mm valve); 430 to 546 mm2 (26 mm valve); 540 to 683 mm2 (29 mm valve). For reference purpose, per CoreValve Evolut R brochure, recommendation are as follows: CT perimeter between 56.5-62.8 mm (23 mm valve); 62.8-72.3 mm (26 mm valve); 72.3-81.7 mm (29 mm valve); and 81.7-94.2. mm (34 mm valve). Agatston Score is 2095.Aortic valve area is 46 sq mm. The sinus of Valsalva height to the takeoff of the coronary artery ostium, RCC (diastole): 13.1 mm The sinus of Valsalva height to the takeoff of the coronary artery ostium, LCC (diastole): 14.6 mm The sinus of Valsalva diameter, RCC (diastole): 31.6 mm The sinus of Valsalva diameter, LCC (diastole): 31.2 mm The sinus of Valsalva diameter, NCC (diastole): 32.5 mm Centimeters at the junction measures approximately 28.8 x 28.1 mm. The most inferior bypass graft takeoff is approximately 4.3 cm above the aortic annulus. The aortic root angulation measures 36.7 degrees. The minimal and perpendicular abdominal aortic diameter measure 10. and 11.8 mm, respectively. There is no evidence of thoracoabdominal aortic aneurysm or stent placement present. The minimum and the perpendicular left common iliac artery measures 4.3 and 8.5 mm, respectively with mildtortuosity and moderate focal calcific atherosclerosis present, at the origin of the left common iliac artery, at image 375. The minimum and the perpendicular left external iliac artery measures 6.7 and 7.5 mm, respectively with mild tortuosity and mildcalcific atherosclerosis present. The minimum and the perpendicular left femoral artery measures 5.6 and 6.1 mm, respectively with mildtortuosity and mild to moderatecalcific atherosclerosis present. The minimum and the perpendicular right common iliac artery measures 6.5 and 8.1 mm, respectively with mildtortuosity and mild diffuse calcific atherosclerosis present. The minimum and the perpendicular rightexternal iliac artery measures 5.8 and 5.9 mm, respectively with mildtortuosity and mildcalcific atherosclerosis present. The minimum and the perpendicular right femoral artery measures 4.0 and 4.5 mm, respectively with mildtortuosity and moderate significant focalcalcific atherosclerosis present, at image 507, just above the mid level of the right femoral head. In addition, more inferiorly on the most distal right common femoral artery/origin of the right SFA, severe calcification is seen, for example at image 511-513. NONVASCULAR: The visualised thyroid gland appears unremarkable. The chest wall and mediastinum has no acute abnormalities identified. The patient is post median sternotomy. The RV free wall is in close proximity to the sternum, and at image 171 it is 4 mm posterior to the chest wall. A number of lymph nodes are seen in mediastinum, overall small in size, some has fatty hilum, considered nonspecific in nature. Calcified granuloma is identified in the right hilum indicating prior granulomatous disease. In the lung windows, no obvious endobronchial lesion is seen, and bibasal pleural effusions identified, with associated atelectatic changes/consolidation. Note, the left basal pleural effusion appears somewhat dense by Hounsfield unit measurement. An addendum will dictated thereafter, if needed. Pulmonary vasculature is prominent indicating underlying cardiac congestion. Some subsegmental atelectatic changes are seen. Calcified nodules are seen scattered in the right lung field indicating prior granulomatous disease. Overall, no suspicious pulmonary nodule is identified. In the abdomen, the liver and spleen appears unremarkable. The liver edge is smooth. No abnormal enhancing structures identified. The gallbladder appears unremarkable. The adrenal glands are not enlarged. The pancreas and gallbladder has no gross abnormality identified. No acute renal pathology is seen and no hydronephrosis or perirenal fluid collections identified. Bowel is not well assessed by CT angiography as enteric contrast is not given. No obvious bowel dilation is identified. Scattered diverticular disease is seen in the sigmoid colon with no evidence of acute diverticulitis. The prostate gland is mildly prominent with punctate calcification identified. The bladder appears unremarkable. In the bony windows, no acute bony pathology is identified. Some degenerative changes are noted. CONCLUSIONS: 1.Patient has a diagnosis of aortic stenosis. Aortic valve is tricuspid. Agatston score is over 2000. Mild mitral annular calcification is seen bilaterally. Aortic valve area is approximately 46 sq mm. No calcification is seen in the ascending thoracic aorta. Dimensions that may be helpful for TAVR as described above. Substantial disease identified at the origin of the right SFA - see above for details. 2.Coronary atherosclerosis. Patient is post coronary artery bypass surgery. Left ventricular enlargement and left atrial prominence. 3.Bibasal pleural effusion right greater than left. Pulmonary vasculature is prominent indicating cardiac congestion. Evidence of prior granulomatous disease. 4.Other findings as described above. 5.An addendum will be dictated by the Flute Teacher Radiologist regarding the nonvascular findings. Signed: Shawn Barnes MD Report Verified Date/Time:09/21/2018 14:01:54 Reading Location: [place] [address] Cardiology MRI Procedure Note Interface, External Ris In - 09/21/2018 2:57 PM [facility] OUT Addendum Begins REPORT STATUS:A Addendum: There is increased density visualized in the left pleural fluid collection. Clinical correlation is needed if an inflammatory or hemorrhagic process is suspected. I agree with the previously described non vascular findings. Signed: Dorota Russell MD Report Verified Date/Time: 09/21/2018 14:55:20 Reading Location: [facility] P048 Angio Body Reading Room Addendum Ends FINAL REPORT CT angiography of the thoracoabdominal aorta and pelvic arteries, 21 September 2018 INDICATION: This is a 78 years old male, with a diagnosis of aortic stenosis presents for preprocedure TAVR assessment. This study is performed in an attempt to avoid an invasive procedure. TECHNIQUE: Spiral acquisition before and during intravenous contrast administration using a Gigi multidetector CT scanner. Images were obtained before and during the dynamic passage of intravenous contrast material. Multi-planar 3-D volume-rendering reconstruction was performed using an independent workstation interactively by the interpreting physician as well as the 3-D specialist for optimal visualization of the thoracoabdominal aorta, the pelvic arteries as well as its proximal branches. Please refer to the contrast sheet scanned in the EPIC system for the amount and route of contrast given. This exam was performed according to our departmental dose-optimisation programme, which includes automated exposure control, adjustment of the mA and/or kV according to patient size and/or use of iterative reconstruction technique. Dose modulation, iterative reconstruction, and/or weight based adjustment of the mA/kV was utilized to reduce the radiation dose to as low as reasonably achievable. FINDINGS: VASCULAR: The central pulmonary artery is normal in calibre. The cardiac chambers demonstrate normal atrioventricular and ventriculoarterial concordance, and systemic and pulmonary venous return. The left ventricle is normal in size though left and right atrial enlargement is identified. Coronary artery origins are normal and diffuse coronary artery calcifications identified in the left main, LAD, LCx and RCA territories. Patient is post coronary artery bypass surgery. A left internal mammary graft is identified connecting to the distal LAD and is patent. The RCA itself is occluded, and no bypass graft is seen to the RCA territory. Two further bypass grafts are seen to the left coronary territory presumably to the OM and D1. They are also patent. Correlate with operative report. The left internal mammary artery is immediately behind the chest wall, at image 59, and at this level, it is approximately 3 cm from the midline. The more inferior bypass graft to the left coronary territory has a minimum distance of approximately 17 mm image 108. More superiorly, the other bypass graft, at image 95 had a distance of 16 mm behind the sternum. Mild mitral annular calcification is seen anterior greater than posterior. Patient has a diagnosis of aortic stenosis. The aortic valve is tricuspid. Agatston score is 2095. Aortic valve area is approximately 46 sq mm. The location of aortic valvular calcification can be seen in reformatted data set sent to PACS. Regarding the aorta, minimal calcification is seen in the ascending aorta and and the sinotubular junction is free of calcification. The transverse arch and descending thoracic aorta has mild calcific and noncalcific atherosclerosis identified. The abdominal aorta has circumferential calcific atherosclerosis identified. No acute aortic pathology is seen and no dissection or contained rupture is identified. Arch vessel branching pattern is normal and the visualized arch vessels are seen to be patent proximally. The left subclavian artery is a mixed of both calcific and noncalcific atherosclerosis identified. The minimum luminal diameter is located at image 37, that measures approximately 3.8 x 7.6 mm in diameter. The right subclavian artery has mild calcific atherosclerosis identified, and at image 13, the minimum luminal diameter is at least 6 to 7 mm. Nonobstructing calcification is seen at the origin of the celiac axis. Similar finding seen at the origin of the SMA. At the mid SMA substantial noncalcific atherosclerosis is identified, and a significant focal stenosis is identified. The remainder of the SMA is unremarkable. The LEE ANN is widely patent. The common and the external iliac arteries, bilaterally, are patent with calcific atherosclerosis identified. The left common femoral artery have increased calcific atherosclerosis seen with [id number] lesion identified. The right common femoral artery is unremarkable. However, at the origin of the right SFA, at image 513, it is essentially occluded and more proximally substantial calcific atherosclerosis is present. Dimensions that may be helpful for TAVR as follows: The ascending thoracic aorta is free of calcification. The major and minor aortic annulus diameter measures 25.3 and 18.0 mm, respectively. The aortic annulus perimeter measured 70 mm and the cross-sectional area measures 372 mm2. The aortic annulus diameter at the traditional LVOT and coronal LVOT measures 20.4 and 20.8 mm, respectively. For reference purpose, per VARGAS S3 brochure, recommendation are as follows: CT area between 273 to 345 mm2 (20 mm valve); 338 to 430 mm2 (23 mm valve); 430 to 546 mm2 (26 mm valve); 540 to 683 mm2 (29 mm valve). For reference purpose, per [employer] Ev[employer]ut R brochure, recommendation are as follows: CT perimeter between 56.5-62.8 mm (23 mm valve); 62.8-72.3 mm (26 mm valve); 72.3-81.7 mm (29 mm valve); and 81.7-94.2. mm (34 mm valve). Agatston Score is 2095. Aortic valve area is 46 sq mm. The sinus of Valsalva height to the takeoff of the coronary artery ostium, RCC (diastole): 13.1 mm The sinus of Valsalva height to the takeoff of the coronary artery ostium, LCC (diastole): 14.6 mm The sinus of Valsalva diameter, RCC (diastole): 31.6 mm The sinus of Valsalva diameter, LCC (diastole): 31.2 mm The sinus of Valsalva diameter, NCC (diastole): 32.5 mm Centimeters at the junction measures approximately 28.8 x 28.1 mm. The most inferior bypass graft takeoff is approximately 4.3 cm above the aortic annulus. The aortic root angulation measures 36.7 degrees. The minimal and perpendicular abdominal aortic diameter measure 10. and 11.8 mm, respectively. There is no evidence of thoracoabdominal aortic aneurysm or stent placement present. The minimum and the perpendicular left common iliac artery measures 4.3 and 8.5 mm, respectively with mild tortuosity and moderate focal calcific atherosclerosis present, at the origin of the left common iliac artery, at image 375. The minimum and the perpendicular left external iliac artery measures 6.7 and 7.5 mm, respectively with mild tortuosity and mild calcific atherosclerosis present. The minimum and the perpendicular left femoral artery measures 5.6 and 6.1 mm, respectively with mild tortuosity and mild to moderate calcific atherosclerosis present. The minimum and the perpendicular right common iliac artery measures 6.5 and 8.1 mm, respectively with mild tortuosity and mild diffuse calcific atherosclerosis present. The minimum and the perpendicular right external iliac artery measures 5.8 and 5.9 mm, respectively with mild tortuosity and mild calcific atherosclerosis present. The minimum and the perpendicular right femoral artery measures 4.0 and 4.5 mm, respectively with mild tortuosity and moderate significant focal calcific atherosclerosis present, at image 507, just above the mid level of the right femoral head. In addition, more inferiorly on the most distal right common femoral artery/origin of the right SFA, severe calcification is seen, for example at image 511-513. NONVASCULAR: The visualised thyroid gland appears unremarkable. The chest wall and mediastinum has no acute abnormalities identified. The patient is post median sternotomy. The RV free wall is in close proximity to the sternum, and at image 171 it is 4 mm posterior to the chest wall. A number of lymph nodes are seen in mediastinum, overall small in size, some has fatty hilum, considered nonspecific in nature. Calcified granuloma is identified in the right hilum indicating prior granulomatous disease. In the lung windows, no obvious endobronchial lesion is seen, and bibasal pleural effusions identified, with associated atelectatic changes/consolidation. Note, the left basal pleural effusion appears somewhat dense by Hounsfield unit measurement. An addendum will dictated thereafter, if needed. Pulmonary vasculature is prominent indicating underlying cardiac congestion. Some subsegmental atelectatic changes are seen. Calcified nodules are seen scattered in the right lung field indicating prior granulomatous disease. Overall, no suspicious pulmonary nodule is identified. In the abdomen, the liver and spleen appears unremarkable. The liver edge is smooth. No abnormal enhancing structures identified. The gallbladder appears unremarkable. The adrenal glands are not enlarged. The pancreas and gallbladder has no gross abnormality identified. No acute renal pathology is seen and no hydronephrosis or perirenal fluid collections identified. Bowel is not well assessed by CT angiography as enteric contrast is not given. No obvious bowel dilation is identified. Scattered diverticular disease is seen in the sigmoid colon with no evidence of acute diverticulitis. The prostate gland is mildly prominent with punctate calcification identified. The bladder appears unremarkable. In the bony windows, no acute bony pathology is identified. Some degenerative changes are noted. CONCLUSIONS: 1. Patient has a diagnosis of aortic stenosis. Aortic valve is tricuspid. Agatston score is over 2000. Mild mitral annular calcification is seen bilaterally. Aortic valve area is approximately 46 sq mm. No calcification is seen in the ascending thoracic aorta. Dimensions that may be helpful for TAVR as described above. Substantial disease identified at the origin of the right SFA - see above for details. 2. Coronary atherosclerosis. Patient is post coronary artery bypass surgery. Left ventricular enlargement and left atrial prominence. 3. Bibasal pleural effusion right greater than left. Pulmonary vasculature is prominent indicating cardiac congestion. Evidence of prior granulomatous disease. 4. Other findings as described above. 5. An addendum will be dictated by the Flute Teacher Radiologist regarding the nonvascular findings. Signed: Shawn Barnes MD Report Verified Date/Time: 09/21/2018 14:01:54 Reading Location: [facility] P047 Cardiology MRI Performing Organization Address City/State/Zipcode Phone Number [employer] Arterial doppler legs bilateral (09/21/2018 8:51 AM BATTER OUT) Ejection [facility] ECHO HEARTLAB MKCKESSON CPACS Impressions Performed At Right Impression [facility] 1. The common femoral is patent with a stenosis > 50% with a peak monophasic velocity of 641 cm/s and extensive plaque. 2 The proximal profunda is patent with monophasic flow. 3. The superficial femoral artery is patent with extensive plaque, calcified vessels and slow velocity monophasic waveforms with a distal stenosis and an elevated velocity of 89 cm/s. 4. The popliteal and peroneal arteries are patent with monophasic flow and extensive plaque. 5. The anterior tibial artery and (proximal and distal) posterior tibial arteries are visualized with no flow present. 6. The PT pressure is 88 mmHg with an MARIUSZ of 0.40 and the DP pressure is 83 mmHg with an MARIUSZ of 0.38. (collateral vessels).Within rest/gangrene obstruction range. 7. The great toe pressure is 76 mmHg with an abnormal TBI of 0.35. 8. The digits have adequate flow by PPG waveforms. Left Impression 1. The common femoral, profunda, superficial femoral and popliteal arteries are patent with extensive plaque , calcified vessels and biphasic flow. 2. There is a profunda stenosis > 50 % with a peak velocity of 428 cm/s. 3. The peroneal is patent with monophasic flow. 4. There is no detectable flow in the posterior tibial artery. 5. The mid and distal anterior tibial artery has no flow detected. 6. The PT and DP MARIUSZ's are in the noncompressible range. (collateral flow). 7. The great toe pressure is 164 mmHg with a normal TBI of 0.75.(falsely elevated). 8. The digits have adequate flow by PPG waveforms. Conclusions Summary Arterial pressures and Doppler analysis were performed bilaterally. Adequate Doppler signals were obtained. On the right, the common femoral was patent with stenosis and extensive plaque with monophasic waveforms. The proximal profunda was patent with monophasic flow. The superficial femoral artery was patent with extensive plaque, calcified vessels and slow velocity monophasic waveforms with a distal stenosis The popliteal and peroneal arteries were patent with monophasic flow and extensive plaque. The MARIUSZ's were in the rest/gangrene obstruction range.(collateral vessels). The TBI was abnormal and the digits had adequate flow by PPG. On the left, the common femoral, profunda, superficial femoral and popliteal arteries were patent with extensive plaque , calcified vessels and biphasic flow. There was a profunda stenosis. The peroneal was patent with monophasic flow and plaque. There was no detectable flow in the posterior tibial artery. The mid and distal anterior tibial artery had no flow detected. The MARIUSZ's were in the noncompressible range (collateral flow). The TBI was normal (falsely elevated). The digits had adequate flow by PPG. Signature Velocities are measured in cm/s ; Diameters are measured in cm LE Duplex Measurements Right Left + + + + + + + + + + !Location ! !PSV !EDV!Waveform ! !PSV !EDV!Waveform ! + + + + + + + + + + !Mid Common Femoral ! !641 ! !Monophasic ! !189 ! !Biphasic ! + + + + + + + + + + !Prox PFA ! !155 ! !Monophasic ! !418 ! !Biphasic ! + + + + + + + + + + !Prox SFA ! !29.8! !Monophasic ! !160 ! !Biphasic ! + + + + + + + + + + !Mid SFA ! !29.5! !Monophasic ! !165 ! !Biphasic ! + + + + + + + + + + !Dist SFA ! !88.8! !Monophasic ! !124 ! !Biphasic ! + + + + + + + + + + !Prox Popliteal ! !45.2! !Monophasic ! !61.6! !Biphasic ! + + + + + + + + + + !Dist Popliteal ! !45.6! !Monophasic ! !58.6! !Biphasic ! + + + + + + + + + + !Prox CHIEF DATA OFFICER ! !! !Absent ! !! !Absent ! + + + + + + + + + + !Mid CHIEF DATA OFFICER ! !12.4! !Monophasic ! !! !Absent ! + + + + + + + + + + !Dist CHIEF DATA OFFICER ! !! !Absent ! !! !Absent ! + + + + + + + + + + !Prox DEENA ! !! !Absent ! !42.1! !Monophasic ! + + + + + + + + + + !Mid DEENA ! !! !Absent ! !! !Absent ! + + + + + + + + + + !Dist DEENA ! !17.1! !Monophasic ! !! !Absent ! + + + + + + + + + + !Prox Peroneal ! !39.8! !Monophasic ! !72.1! !Monophasic ! + + + + + + + + + + !Dist Peroneal ! !66.3! !Monophasic ! !98.5! !Monophasic ! + + + + + + + + + + Narrative Performed At PV LAB - Lower Extremity Arterial Duplex [facility] ECHO [facility]ART[facility] Demographics Patient Name ALVA LUBIN Date of Study09/21/2018 SR. [id number] Age78 Visit Number [id number] Gender Male Accession Number [id number] Date of Birth1940 [id number] Physician SonnyographMiguel Hill.Interpreting Ju Goldsmith RVT, PRITI PhysicianMD Cassie Bosch RVT Procedure Type of Study: Extremities Arteries: Lower Extremities Arterial Duplex, ARTERIAL DOPPLER LEGS, BILATERAL. Indications for Study:TAVR workup . Patient Status:NANCY. Study Location:Vascular Lab. Technical Quality:Technically Difficult. Risk Factors History of Disease +---------+----+ + !Diagnosis!Date!Comments ! +---------+----+ + !Other!!a-fib, hdl, ht, cad, cad, pad ! +---------+----+ + Procedure Note Interface, External Ris In - 09/22/2018 7:23 AM BATTER OUT PV [facility] - Lower Extremity Arterial Duplex Demographics Patient Name ALVA LUBIN Date of Study 09/21/2018 SR. Age 78 Visit Number [id number] Gender Male Accession Number [id number] Date of 1940 Referring Hernan Baron Room Number 2435 Physician Supervisor [employer] [place]. Interpreting Ju Goldsmith RVT, ARDMS Physician MD Cassie Bosch RVT Procedure Type of Study: Extremities Arteries: Lower Extremities Arterial Duplex, ARTERIAL DOPPLER LEGS, BILATERAL. Indications for Study:TAVR workup . Patient Status:NANCY. Study Location:Vascular Lab. Technical Quality:Technically Difficult. Risk Factors History of Disease +---------+----+ + !Diagnosis!Date!Comments ! +---------+----+ + !Other ! !a-fib, hdl, ht, cad, cad, pad ! +---------+----+ + Impressions Right Impression 1. The common femoral is patent with a stenosis > 50% with a peak monophasic velocity of 641 cm/s and extensive plaque. 2 The proximal profunda is patent with monophasic flow. 3. The superficial femoral artery is patent with extensive plaque, calcified vessels and slow velocity monophasic waveforms with a distal stenosis and an elevated velocity of 89 cm/s. 4. The popliteal and peroneal arteries are patent with monophasic flow and extensive plaque. 5. The anterior tibial artery and (proximal and distal) posterior tibial arteries are visualized with no flow present. 6. The PT pressure is 88 mmHg with an MARIUSZ of 0.40 and the DP pressure is 83 mmHg with an MARIUSZ of 0.38. (collateral vessels).Within rest/gangrene obstruction range. 7. The great toe pressure is 76 mmHg with an abnormal TBI of 0.35. 8. The digits have adequate flow by PPG waveforms. Left Impression 1. The common femoral, profunda, superficial femoral and popliteal arteries are patent with extensive plaque , calcified vessels and biphasic flow. 2. There is a profunda stenosis > 50 % with a peak velocity of 428 cm/s. 3. The peroneal is patent with monophasic flow. 4. There is no detectable flow in the posterior tibial artery. 5. The mid and distal anterior tibial artery has no flow detected. 6. The PT and DP MARIUSZ's are in the noncompressible range. (collateral flow). 7. The great toe pressure is 164 mmHg with a normal TBI of 0.75.(falsely elevated). 8. The digits have adequate flow by PPG waveforms. Conclusions Summary Arterial pressures and Doppler analysis were performed bilaterally. Adequate Doppler signals were obtained. On the right, the common femoral was patent with stenosis and extensive plaque with monophasic waveforms. The proximal profunda was patent with monophasic flow. The superficial femoral artery was patent with extensive plaque, calcified vessels and slow velocity monophasic waveforms with a distal stenosis The popliteal and peroneal arteries were patent with monophasic flow and extensive plaque. The MARIUSZ's were in the rest/gangrene obstruction range.(collateral vessels). The TBI was abnormal and the digits had adequate flow by PPG. On the left, the common femoral, profunda, superficial femoral and popliteal arteries were patent with extensive plaque , calcified vessels and biphasic flow. There was a profunda stenosis. The peroneal was patent with monophasic flow and plaque. There was no detectable flow in the posterior tibial artery. The mid and distal anterior tibial artery had no flow detected. The MARIUSZ's were in the noncompressible range (collateral flow). The TBI was normal (falsely elevated). The digits had adequate flow by PPG. Signature Velocities are measured in cm/s ; Diameters are measured in cm LE Duplex Measurements Right Left + + + ------+ + + + +-------- ---------+ + !Location ! !PSV !EDV !Waveform ! !PSV !EDV !Waveform ! + + + ------+ + + + +-------- ---------+ + !Mid Common Femoral ! !641 ! !Monophasic ! !189 ! !Biphasic ! + + + ------+ + + + +-------- ---------+ + !Prox PFA ! !155 ! !Monophasic ! !418 ! !Biphasic ! + + + ------+ + + + +-------- ---------+ + !Prox SFA ! !29.8 ! !Monophasic ! !160 ! !Biphasic ! + + + ------+ + + + +-------- ---------+ + !Mid SFA ! !29.5 ! !Monophasic ! !165 ! !Biphasic ! + + + ------+ + + + +-------- ---------+ + !Dist SFA ! !88.8 ! !Monophasic ! !124 ! !Biphasic ! + + + ------+ + + + +-------- ---------+ + !Prox Popliteal ! !45.2 ! !Monophasic ! !61.6 ! !Biphasic ! + + + ------+ + + + +-------- ---------+ + !Dist Popliteal ! !45.6 ! !Monophasic ! !58.6 ! !Biphasic ! + + + ------+ + + + +-------- ---------+ + !Prox CHIEF DATA OFFICER ! ! ! !Absent ! ! ! !Absent ! + + + ------+ + + + +-------- ---------+ + !Mid CHIEF DATA OFFICER ! !12.4 ! !Monophasic ! ! ! !Absent ! + + + ------+ + + + +-------- ---------+ + !Dist CHIEF DATA OFFICER ! ! ! !Absent ! ! ! !Absent ! + + + ------+ + + + +-------- ---------+ + !Prox DEENA ! ! ! !Absent ! !42.1 ! !Monophasic ! + + + ------+ + + + +-------- ---------+ + !Mid DEENA ! ! ! !Absent ! ! ! !Absent ! + + + ------+ + + + +-------- ---------+ + !Dist DEENA ! !17.1 ! !Monophasic ! ! ! !Absent ! + + + ------+ + + + +-------- ---------+ + !Prox Peroneal ! !39.8 ! !Monophasic ! !72.1 ! !Monophasic ! + + + ------+ + + + +-------- ---------+ + !Dist Peroneal ! !66.3 ! !Monophasic ! !98.5 ! !Monophasic ! + + + ------+ + + + +-------- ---------+ + Performing Organization Address City/State/Zipcode Phone Number [facility] Carotid doppler bilateral (09/21/2018 8:51 AM BATTER OUT) Ejection Fraction [facility] ECHO HEARTLAB MKCKHALIMAON [facility] Impressions Performed At Right Impression [facility] ECHO HEARTLAB femeninasCKESSON [facility] 1. There is 50-69% diameter reduction (approximately 69 % by 2-D measurement) in the internal carotid artery with shadowing heterogeneous plaque, a peak velocity of 236/50 cm/sec and an ICA/CCA peak systolic velocity ratio of 2.68. 2. There is non-occluding plaque in the external carotid artery. 3. There is non-occluding plaque in the common carotid artery. 4. The vertebral artery flow is antegrade and normal. 5. The subclavian artery is within normal limits where visualized. Left Impression 1. There is 50-69% diameter reduction (approximately 67 % by 2-D measurement) in the internal carotid artery with shadowing heterogeneous plaque, a peak velocity of 165/46 cm/sec and an ICA/CCA peak systolic velocity ratio of 1.65. 2. There is non-occluding plaque in the external carotid artery. 3. There is non-occluding plaque in the common carotid artery. 4. The vertebral artery flow is antegrade and normal. 5. The subclavian artery is within normal limits where visualized. Conclusions Summary Carotid duplex scanning and color flow imaging were performed bilaterally. The arteries were adequately visualized. The right internal carotid artery had 50-69% hemodynamically significant stenosis (approximately 69% by 2-D measurement) with heterogeneous plaque. The left internal carotid artery had 50-69% hemodynamically significant stenosis (approximately 67% by 2-D measurement) with heterogeneous plaque. The vertebral artery flow was antegrade and normal bilaterally. Signature Velocities are measured in cm/s ; Diameters are measured in cm Carotid Right Measurements + +----+----+-----+ +---- + + !Location !PSV !EDV !Angle!%Stenosis 2D!%Stenosis Doppler!Tortuosity ! + +----+----+-----+ +---- + + !Prox CCA !85.6!11.7!60 !! ! ! + +----+----+-----+ +---- + + !Dist CCA !87.9!14.7!60 !! ! ! + +----+----+-----+ +---- + + !Prox ICA !228 !56.6!60 !69!50-69% ! ! + +----+----+-----+ +---- + + !Dist ICA !236 !50.3!60 !! ! ! + +----+----+-----+ +---- + + !Prox ECA !120 !22.3!60 !! ! ! + +----+----+-----+ +---- + + !Vertebral!39.8!6.9 !60 !! ! ! + +----+----+-----+ +---- + + !Prox Subclavian!106 !0 !60 !! ! ! + +----+----+-----+ +---- + + - There is antegrade vertebral flow noted on the right side. - Additional Measurements:ICAPSV/CCAPSV 2.68.ICAEDV/CCAEDV 4.84. Carotid Left Measurements + +----+----+-----+ +---- + + !Location !PSV !EDV !Angle!%Stenosis 2D!%Stenosis Doppler!Tortuosity ! + +----+----+-----+ +---- + + !Prox CCA !127 !25.9!60 !! ! ! + +----+----+-----+ +---- + + !Dist CCA !99.8!16.5!60 !! ! ! + +----+----+-----+ +---- + + !Prox ICA !165 !45.6!60 !67!50-69% ! ! + +----+----+-----+ +---- + + !Dist ICA !142 !35.9!50 !! ! ! + +----+----+-----+ +---- + + !Prox ECA !156 !16.5!60 !! ! ! + +----+----+-----+ +---- + + !Vertebral!19.8!6.67!50 !! ! ! + +----+----+-----+ +---- + + !Prox Subclavian!131 !0 !60 !! ! ! + +----+----+-----+ +---- + + - There is antegrade vertebral flow noted on the left side. - Additional Measurements:ICAPSV/CCAPSV 1.65.ICAEDV/CCAEDV 1.76. Narrative Performed At PV LAB - Carotid Duplex Study [facility]CHO [facility]ART[facility] Demographics Patient Name ALVA LUBIN Date of Study 09/21/2018 SR. [id number] Age 78 Visit Number [id number] GenderMale Accession Number [id number] Date of 1940 Cheri MONDRAGON [facility] Number 4067 Physician SonographerGnoemy Hill.Maurice Goldsmith Q[place], [facility] Physician Procedure Type of Study: Cerebral: Carotid, CAROTID DOPPLER, BILATERAL. Indications for Study:TAVR workup . Patient Status:NANCY. Study Location:Vascular Lab. Technical Quality:Technically Difficult. Risk Factors History of Disease +---------+----+ + !Diagnosis!Date!Comments ! +---------+----+ + !Other!!a-fib, hdl, ht, cad, cad, pad ! +---------+----+ + Procedure Note Interface, External Ris In - 09/22/2018 7:24 AM BATTER OUT PV LAB - Carotid Duplex Study Demographics Patient Name ALVA LUBIN Date of Study 09/21/2018 SR. Age 78 Visit Number [id number] Gender Male Accession Number [id number] Date of 1940 Referring Hernan Baron Room Number 2435 Physician Supervisor [employer] [place]. Interpreting Ju Goldsmith RVT, ARS Physician Procedure Type of Study: Cerebral: Carotid, CAROTID DOPPLER, BILATERAL. Indications for Study:TAVR workup . Patient Status:NANCY. Study Location:Vascular Lab. Technical Quality:Technically Difficult. Risk Factors History of Disease +---------+----+ + !Diagnosis!Date!Comments ! +---------+----+ + !Other ! !a-fib, hdl, ht, cad, cad, pad ! +---------+----+ + Impressions Right Impression 1. There is 50-69% diameter reduction (approximately 69 % by 2-D measurement) in the internal carotid artery with shadowing heterogeneous plaque, a peak velocity of 236/50 cm/sec and an ICA/CCA peak systolic velocity ratio of 2.68. 2. There is non-occluding plaque in the external carotid artery. 3. There is non-occluding plaque in the common carotid artery. 4. The vertebral artery flow is antegrade and normal. 5. The subclavian artery is within normal limits where visualized. Left Impression 1. There is 50-69% diameter reduction (approximately 67 % by 2-D measurement) in the internal carotid artery with shadowing heterogeneous plaque, a peak velocity of 165/46 cm/sec and an ICA/CCA peak systolic velocity ratio of 1.65. 2. There is non-occluding plaque in the external carotid artery. 3. There is non-occluding plaque in the common carotid artery. 4. The vertebral artery flow is antegrade and normal. 5. The subclavian artery is within normal limits where visualized. Conclusions Summary Carotid duplex scanning and color flow imaging were performed bilaterally. The arteries were adequately visualized. The right internal carotid artery had 50-69% hemodynamically significant stenosis (approximately 69% by 2-D measurement) with heterogeneous plaque. The left internal carotid artery had 50-69% hemodynamically significant stenosis (approximately 67% by 2-D measurement) with heterogeneous plaque. The vertebral artery flow was antegrade and normal bilaterally. Signature Velocities are measured in cm/s ; Diameters are measured in cm Carotid Right Measurements + +----+----+-----+ + + + !Location !PSV !EDV !Angle!%Stenosis 2D!%Stenosis Doppler!Tortuosity ! + +----+----+-----+ + + + !Prox CCA !85.6!11.7!60 ! ! ! ! + +----+----+-----+ + + + !Dist CCA !87.9!14.7!60 ! ! ! ! + +----+----+-----+ + + + !Prox ICA !228 !56.6!60 !69 !50-69% ! ! + +----+----+-----+ + + + !Dist ICA !236 !50.3!60 ! ! ! ! + +----+----+-----+ + + + !Prox ECA !120 !22.3!60 ! ! ! ! + +----+----+-----+ + + + !Vertebral !39.8!6.9 !60 ! ! ! ! + +----+----+-----+ + + + !Prox Subclavian!106 !0 !60 ! ! ! ! + +----+----+-----+ + + + - There is antegrade vertebral flow noted on the right side. - Additional Measurements:ICAPSV/CCAPSV 2.68.ICAEDV/CCAEDV 4.84. Carotid Left Measurements + +----+----+-----+ + + + !Location !PSV !EDV !Angle!%Stenosis 2D!%Stenosis Doppler!Tortuosity ! + +----+----+-----+ + + + !Prox CCA !127 !25.9!60 ! ! ! ! + +----+----+-----+ + + + !Dist CCA !99.8!16.5!60 ! ! ! ! + +----+----+-----+ + + + !Prox ICA !165 !45.6!60 !67 !50-69% ! ! + +----+----+-----+ + + + !Dist ICA !142 !35.9!50 ! ! ! ! + +----+----+-----+ + + + !Prox ECA !156 !16.5!60 ! ! ! ! + +----+----+-----+ + + + !Vertebral !19.8!6.67!50 ! ! ! ! + +----+----+-----+ + + + !Prox Subclavian!131 !0 !60 ! ! ! ! + +----+----+-----+ + + + - There is antegrade vertebral flow noted on the left side. - Additional Measurements:ICAPSV/CCAPSV 1.65.ICAEDV/CCAEDV 1.76. Performing Organization Address City/State/Zipcode Phone Number [facility] CPACS XR chest 1 view portable / bedside (09/20/2018 8:19 PM BATTER OUT) Narrative Performed At FINAL REPORT [employer] Chest one view AP 09/20/2018 8:32 PM CLINICAL INDICATION: SOB COMPARISON: 07/30/2015 IMPRESSION: There are trace right and small volume pleural effusions. Bibasilar opacities suggest atelectasis. Pneumonia should be excluded clinically. The cardiac silhouette is prominent, but stable. The central pulmonary vasculature is not engorged. Cardiac support hardware is unchanged in position. Signed: Ramses Keith MD Report Verified Date/Time:09/20/2018 20:32:40 Reading Location: [facility] Reading Room Procedure Note Interface, External Ris In - 09/20/2018 9:20 PM BATTER OUT FINAL REPORT Chest one view AP 09/20/2018 8:32 PM CLINICAL INDICATION: SOB COMPARISON: 07/30/2015 IMPRESSION: There are trace right and small volume pleural effusions. Bibasilar opacities suggest atelectasis. Pneumonia should be excluded clinically. The cardiac silhouette is prominent, but stable. The central pulmonary vasculature is not engorged. Cardiac support hardware is unchanged in position. Signed: Ramses Keith MD Report Verified Date/Time: 09/20/2018 20:32:40 Reading Location: [facility] Radiology Reading Room Performing Organization Address City/State/Zipcode Phone Number [employer] ECHOCARDIOGRAM REPORT - SCAN (09/19/2018 5:50 PM BATTER OUT) Narrative Performed At ECHO W CONTRAST & DOPPLER (09/19/2018 2:01 PM BATTER OUT) Ejection Fraction [facility]ART[facility] [employer] [employer] CPA Narrative Performed At Transthoracic Echocardiography Report (TTE) [facility]CHO [facility]ART[facility] [employer] [facility] Demographics Patient NameBIGGS, WILLIAMDate of Study09/19/2018 LEONARDO SR. 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 Clinical History HGB 10.8 HCT 32.1 % , A-FIB, CAD, HLD, HTN, ICMO, PVD, ACB X3 (06/25/15), HYPOTHYROID, DCCV (09/08/18) Contrast Medium: Definity. Amount - 3 ml Height: 62 inches Weight: 70.76 kg (156 lbs) BSA: 1.72 m^2 BMI: 28.53 kg/m^2 HR: 59 bpm BP: 184/75 mmHg Summary HGB 10.8 HCT 32.1 % Moderate AoV cusp thickening. Moderate to severe AoV cusp calcification. A trace of aortic regurgitation. Severe aortic stenosis with (KATRIN 0.68cm2, by continuity equation; mean gradient 35 mmHg, peak gradient 53 mmHg, AV DVI 0.26) AoV cusp mobility is severely decreased . Due to technical limitations, the AoV gradients are likely somewhat underestimated. Previous Study On comparison with prior exam on 06/26/2015 , the following changes are now noted: the degree of is now [id number], the PASP is 50-55mmHg, and there is elevated RAP. Signature Findings Rhythm/BPSlow rhythm during the exam. Left Ventricle LV endocardium is adequately visualized with IV ul trasound enhancing agent. Th e left ventricle is chamber size (by vol index) is normal (male - LVED vol - 34-74ml/m2). Mi ld concentric LV hypertrophy. Al l of the LV segments contract normally . LV EF by Rick's method of disk assessment is no rmal (55-60%) . Gr caesar 3 diastolic dysfunction (marked elevated LA pr essure). Left AtriumLA size is severely enlarged (>48 ml/m2) . Right VentricleThe right ventricular chamber size and systolic fu nction are within normal limits. Right Atrium RA size is severely dilated. Aortic Valve Moderate AoV cusp thickening. Mo derate to severe AoV cusp calcification. A trace of aortic regurgitation. Se anup aortic stenosis with (KATRIN 0.68cm2, by co ntinuity equation; mean gradient 35 mmHg, peak gr adient 53 mmHg, AV DVI 0.26) Ao V cusp mobility is severely decreased . Du e to technical limitations, the AoV gradients are li tariq somewhat underestimated. Mitral Valve Mild MV leaflet thickening. Mi ld mitral annular calcification. Tr jorge mitral regurgitation. Tricuspid ValveTV structure is normal. A trace of tricuspid regurgitation. Es timated peak systolic pressure is at least 50-55 mm Hg. Pulmonic Valve Normal PV structure appears normal by available vi ews. A trace of pulmonary regurgitation. AortaAortic root size (SInus of Valsalva diameter) is no rmal . PericardiumNo significant pericardial effusion is visualized. IVC/SVC/PA/PV/PleuralThe estimated RA pressure by IVC dynamics 16-20mmHg . He patic Vein pulsed Doppler pattern shows systolic bl unting suggestive of elevated RVEDP. Chambers/Structures Left Atrium LA Volume: 105.39 mlLA Area: 28.83 cm^2 LA Vol. Index: 61 ml/m^2 Left Ventricle LVIDd: 4.66 cm LVIDs: 3.14 cm LV Septum Diastolic: 1.03 cm LV PW Diastolic: 0.84 cmLV FS: 32.6 % LVEDV Rick's:85.71 ml LVESV Rick's:37.2 ml LVEDVI: 50 ml/m^2 LVEF Rick's: 56.6 %LVESV I: 22 ml/m^2 LVOT Diameter: 2 cm Right Ventricle TAPSE: 2.54 cm Aorta Ao Root S of Letty.: 3.16 cm Doppler/Quantitative Measurements Mitral Valve MV Peak E-Wave: 1.43 m/s MV Peak A-Wave: 0.68 m/s E/A Ratio: 2.11 Mean Velocity: 0.66 m/sPeak Gradient: 8.22 mmHg Mean Gradient: 2.22 mmHg Area (continuity): 2.29 cm^2 MV VTI: 31.28 cm MV Damon. Peak: 1.37 m/s Tissue Doppler E' Septal Velocity: 0.06 m/s A' Septal Velocity: 0.05 m/s E/E': 23.96 Aortic Valve Peak Velocity: 3.63 m/sMean Velocity: 2.8 m/s Peak Gradient: 52.69 mmHgMean Gradient: 34.65 mmHg AV Area (continuity): 0.64 cm^2 AV VTI: 112.7 cm AV DVI: 0.2 LVOT Peak Velocity: 0.8 m/sPeak Gradient: 2.57 mmHg Mean Velocity: 0.57 m/s Mean Gradient: 1.44 mmHg LVOT Diameter: 2 cm LVOT VTI: 22.86 cm LVOT Area: 3.14 cm^2LVOT SV:71.78 ml LVOT CO: 4.24 l/min LVOT CI: 2.47 l/min/m^2 Tricuspid Valve TR Velocity: 2.88 m/s TR Gradient: 33.1 mmHg Procedure Note Interface, External Ris In - 09/19/2018 4:52 PM BATTER OUT Transthoracic Echocardiography Report (TTE) Demographics Patient Name ALVA LUBIN Date of Study 09/19/2018 LEONARDO SR. 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 Clinical History HGB 10.8 HCT 32.1 % , A-FIB, CAD, HLD, HTN, ICMO, PVD, ACB X3 (06/25/15), HYPOTHYROID, DCCV (09/08/18) Contrast Medium: Definity. Amount - 3 ml Height: 62 inches Weight: 70.76 kg (156 lbs) BSA: 1.72 m^2 BMI: 28.53 kg/m^2 HR: 59 bpm BP: 184/75 mmHg Summary HGB 10.8 HCT 32.1 % Moderate AoV cusp thickening. Moderate to severe AoV cusp calcification. A trace of aortic regurgitation. Severe aortic stenosis with (KATRIN 0.68cm2, by continuity equation; mean gradient 35 mmHg, peak gradient 53 mmHg, AV DVI 0.26) AoV cusp mobility is severely decreased . Due to technical limitations, the AoV gradients are likely somewhat underestimated. Previous Study On comparison with prior exam on 06/26/2015 , the following changes are now noted: the degree of is now [id number], the PASP is 50-55mmHg, and there is elevated RAP. Signature Findings Rhythm/BP Slow rhythm during the exam. Left Ventricle LV endocardium is adequately visualized with IV ultrasound enhancing agent. The left ventricle is chamber size (by vol index) is normal (male - LVED vol - 34-74ml/m2). Mild concentric LV hypertrophy. All of the LV segments contract normally . LVEF by Rick's method of disk assessment is normal (55-60%) . Grade 3 diastolic dysfunction (marked elevated LA pressure). Left Atrium LA size is severely enlarged (>48 ml/m2) . Right Ventricle The right ventricular chamber size and systolic function are within normal limits. Right Atrium RA size is severely dilated. Aortic Valve Moderate AoV cusp thickening. Moderate to severe AoV cusp calcification. A trace of aortic regurgitation. Severe aortic stenosis with (KATRIN 0.68cm2, by continuity equation; mean gradient 35 mmHg, peak gradient 53 mmHg, AV DVI 0.26) AoV cusp mobility is severely decreased . Due to technical limitations, the AoV gradients are likely somewhat underestimated. Mitral Valve Mild MV leaflet thickening. Mild mitral annular calcification. Trace mitral regurgitation. Tricuspid Valve TV structure is normal. A trace of tricuspid regurgitation. Estimated peak systolic pressure is at least 50-55 mmHg. Pulmonic Valve Normal PV structure appears normal by available views. A trace of pulmonary regurgitation. Aorta Aortic root size (SInus of Valsalva diameter) is normal . Pericardium No significant pericardial effusion is visualized. IVC/SVC/PA/PV/Pleural The estimated RA pressure by IVC dynamics 16-20mmHg . Hepatic Vein pulsed Doppler pattern shows systolic blunting suggestive of elevated RVEDP. Chambers/Structures Left Atrium LA Volume: 105.39 ml LA Area: 28.83 cm^2 LA Vol. Index: 61 ml/m^2 Left Ventricle LVIDd: 4.66 cm LVIDs: 3.14 cm LV Septum Diastolic: 1.03 cm LV PW Diastolic: 0.84 cm LV FS: 32.6 % LVEDV Rick's:85.71 ml LVESV Rick's:37.2 ml LVEDVI: 50 ml/m^2 LVEF Rick's: 56.6 % LVESVI: 22 ml/m^2 LVOT Diameter: 2 cm Right Ventricle TAPSE: 2.54 cm Aorta Ao Root S of Letty.: 3.16 cm Doppler/Quantitative Measurements Mitral Valve MV Peak E-Wave: 1.43 m/s MV Peak A-Wave: 0.68 m/s E/A Ratio: 2.11 Mean Velocity: 0.66 m/s Peak Gradient: 8.22 mmHg Mean Gradient: 2.22 mmHg Area (continuity): 2.29 cm^2 MV VTI: 31.28 cm MV Damon. Peak: 1.37 m/s Tissue Doppler E' Septal Velocity: 0.06 m/s A' Septal Velocity: 0.05 m/s E/E': 23.96 Aortic Valve Peak Velocity: 3.63 m/s Mean Velocity: 2.8 m/s Peak Gradient: 52.69 mmHg Mean Gradient: 34.65 mmHg AV Area (continuity): 0.64 cm^2 AV VTI: 112.7 cm AV DVI: 0.2 LVOT Peak Velocity: 0.8 m/s Peak Gradient: 2.57 mmHg Mean Velocity: 0.57 m/s Mean Gradient: 1.44 mmHg LVOT Diameter: 2 cm LVOT VTI: 22.86 cm LVOT Area: 3.14 cm^2 LVOT SV:71.78 ml LVOT CO: 4.24 l/min LVOT CI: 2.47 l/min/m^2 Tricuspid Valve TR Velocity: 2.88 m/s TR Gradient: 33.1 mmHg Performing Organization Address City/State/Zipcode Phone Number [facility] Hemoglobin A1c (09/19/2018 9:45 AM BATTER OUT) Hemoglobin A1C 6.4 (H) 4.3 - 6.1 % [facility] Specimen Blood Performing Organization Address [facility] Phone Number [address] [phone] [place] Troponin I (09/19/2018 6:01 AM BATTER OUT)Only the most recent of2 resultswithin the time period is included. Troponin I 0.01 0.00 - 0.03 ng/mL [facility] Specimen Blood - Arm, Left Narrative Performed At Troponin I (TnI) levels must be interpreted [facility] in the context of the presenting symptoms and the clinical findings. Elevated TnI levels indicate myocardial damage, but are not specific for ischemic heart disease. Elevated TnI levels are seen in patients with other cardiac conditions (including myocarditis and congestive heart failure), and slight TnI elevations occur in patients with other conditions, including sepsis, renal failure, acidosis, acute neurological disease, and persistent tachyarrhythmia. Performing Organization Address [facility] Cent[facility]ode Phone Number [address] [address] [place] B-type Natriuretic Factor (BNP) (09/18/2018 6:15 PM BATTER OUT) BNP 1,260 (H) 0 - 100 pg/mL [facility] Specimen Blood - Arm, Right Performing Organization Address [facility] Cent[facility]ode Phone Number [address] [phone] [place] Comprehensive metabolic panel (09/18/2018 6:15 PM BATTER OUT) Protein, Total 6.6 6.0 - 8.3 gm/dL [facility] Albumin 3.8 3.5 - 5.0 g/dL [facility] Alkaline Phosphatase 90 40 - 150 U/L [facility] Total Bilirubin 0.8 0.2 - 1.2 mg/dL [facility] Sodium 130 (L) 136 - 145 meq/L [facility] Potassium 3.8 3.5 - 5.1 meq/L [facility] Chloride 96 (L) 98 - 107 meq/L [facility] CO2 26 22 - 29 meq/L [facility] BUN 20 7 - 21 mg/dL [facility] Creatinine 0.98 0.57 - 1.25 mg/dL [facility] Glucose 103 70 - 105 mg/dL [facility] Calcium 9.3 8.4 - 10.2 mg/dL [facility] AST 26 5 - 34 U/L [facility] ALT 32 6 - 55 U/L [facility] EGFR 74Comment: ESTIMATED GFR mL/min/1.73 sq m [facility] IS NOT ACCURATE [facility] CREATININE CLEARANCE IN PREDICTING GLOMERULAR FILTRATION RATE. ESTIMATED GFR IS NOT APPLICABLE FOR DIALYSIS PATIENTS. Specimen Blood - Arm, Right Performing Organization Address City/State/Zipcode Phone Number [address] [address] CENTER after 10/16/2017 Insurance Payer Benefit Plan / Group Subscriber ID Type Phone Address MEDICARE MEDICARE A B xxxxxxxxxx Medicare (Home) [place] [address] Advance Directives For more information, please contact:[address] [phone] Code Status Date Activated Date Inactivated Comments Full Code 09/18/2018 6:01 PM This code status was determined by: Patient Full Code 06/24/2015 11:15 PM 07/15/2015 1:18 PM This code status was determined by: Patient Full Code 06/24/2015 9:02 PM 06/24/2015 11:15 PM This code status was determined by: Patient Full Code 06/24/2015 7:23 PM 06/24/2015 9:02 PM This code status was determined by: Patient
--- OUTSIDE RECORDS SUMMARY | 2018-10-17 05:05 | XMS REPORT ---
:1940 [facility] Address [address] [place] [address] Care Team Providers Name Role Phone JOE MURRY Unavailable Unavailable Problems This patient has no known problems. Allergies, Adverse Reactions, Alerts This patient has no known allergies or adverse reactions. Medications This patient has no known medications. Results Test Description Test Time Test Comments Text Results Atomic Results Result Comments TISSUE EXAM 2018-10-04 14:19:00 Surgical Pathology Report Case: [id number] Authorizing Provider: Jhonathan Sharma MD Collected: 09/25/2018 1808 Ordering Location: [address] Received: 09/26/2018 0927 Service Pathologist: Haris Jeter MD Specimen: Plaque, arterial plaque ARTERY, LEFT FEMORAL, ENDARTERECTOMY:CALCIFIC ATHEROSCLEROTIC PLAQUE Signing Pathologist Direct Phone Line: [phone] signed by Haris Jeter MD on 10/04/2018 at 2:19 [id number]; [id number] femoral artery plaqueArterial plaqueThe specimen is received in saline labeled with the patient's information labeled "arterial plaque" and consists of previously opened calcified segment of tissue measuring 2.5 cm in length x 0.5 cm in circumference. Mine Laborer sections are submitted A1 for decalcification. CG/pl Performed POCT-GLUCOSE METER 2018-09-28 13:44:00 Test Item Value Reference Range Comments POC-GLUCOSE METER (BEAKER) (test 326 mg/dL 70-110 TESTED AT [address] pkcd=[id number]) [facility] [address] POCT-GLUCOSE [id number] 11:32:00 Test Item Value Reference Range Comments POC-GLUCOSE METER (BEAKER) 150 mg/dL 70-110 TESTED AT [place] [address] [facility] (test nrfo=5434) [facility] [address] [id number] 04:26:00 Test Item Value Reference Range Comments MAGNESIUM (BEAKER) (test aexb=772) 1.6 mg/dL 1.6-2.6 BASIC METABOLIC [id number] 04:26:00 Test Item Value Reference Range Comments SODIUM (BEAKER) (test 138 meq/L 136-145 hifn=338) POTASSIUM (BEAKER) (test 3.6 meq/L 3.5-5.1 judf=146) CHLORIDE (BEAKER) (test 103 meq/L 98-107 lqyt=378) CO2 (BEAKER) (test 27 meq/L 22-29 ydrd=166) BLOOD UREA NITROGEN 30 mg/dL 7-21 (BEAKER) (test eghe=287) CREATININE (BEAKER) (test 1.04 mg/dL 0.57-1.25 yivy=951) GLUCOSE RANDOM (BEAKER) 115 mg/dL 70-105 (test eimf=463) CALCIUM (BEAKER) (test 8.8 mg/dL 8.4-10.2 zgmn=774) EGFR (BEAKER) (test 69 mL/min/1.73 sq m ESTIMATED GFR IS NOT gcxu=7184) ACCURATE CREATININE CLEARANCE IN PREDICTING GLOMERULAR FILTRATION RATE. ESTIMATED GFR IS NOT APPLICABLE FOR DIALYSIS PATIENTS. CBC W/PLT COUNT & AUTO [id number] 04:09:00 Test Item Value Reference Range Comments WHITE BLOOD CELL COUNT (BEAKER) (test ruxk=257) 9.4 K/ L 3.5-10.5 RED BLOOD CELL COUNT (BEAKER) (test neuk=597) 2.67 M/ L 4.63-6.08 HEMOGLOBIN (BEAKER) (test nfwz=436) 8.4 GM/DL 13.7-17.5 HEMATOCRIT (BEAKER) (test rjos=651) 25.7 % 40.1-51.0 MEAN CORPUSCULAR VOLUME (BEAKER) (test qqmq=862) 96.3 fL 79.0-92.2 MEAN CORPUSCULAR HEMOGLOBIN (BEAKER) (test 31.5 pg 25.7-32.2 uyko=368) MEAN CORPUSCULAR HEMOGLOBIN CONC (BEAKER) (test 32.7 GM/DL 32.3-36.5 sjwr=818) RED CELL DISTRIBUTION WIDTH (BEAKER) (test 12.4 % 11.6-14.4 dmld=860) PLATELET COUNT (BEAKER) (test pnyk=620) 213 K/CU MM 150-450 MEAN PLATELET VOLUME (BEAKER) (test oevp=744) 9.9 fL 9.4-12.4 NUCLEATED RED BLOOD CELLS (BEAKER) (test 0 /100 WBC 0-0 lohu=434) NEUTROPHILS RELATIVE PERCENT (BEAKER) (test 70 % pbkj=997) LYMPHOCYTES RELATIVE PERCENT (BEAKER) (test 12 % znuw=263) MONOCYTES RELATIVE PERCENT (BEAKER) (test 12 % kknv=153) EOSINOPHILS RELATIVE PERCENT (BEAKER) (test 5 % vjyy=280) BASOPHILS RELATIVE PERCENT (BEAKER) (test 1 % wofy=901) NEUTROPHILS ABSOLUTE COUNT (BEAKER) (test 6.50 K/ L 1.78-5.38 tdxv=707) LYMPHOCYTES ABSOLUTE COUNT (BEAKER) (test 1.10 K/ L 1.32-3.57 fbsl=707) MONOCYTES ABSOLUTE COUNT (BEAKER) (test 1.16 K/ L 0.30-0.82 hnoy=907) EOSINOPHILS ABSOLUTE COUNT (BEAKER) (test 0.49 K/ L 0.04-0.54 vqbe=657) BASOPHILS ABSOLUTE COUNT (BEAKER) (test 0.05 K/ L 0.01-0.08 tfvz=927) IMMATURE GRANULOCYTES-RELATIVE PERCENT (BEAKER) 1 % 0-1 (test xkbh=5363) [id number] 03:49:00 Test Item Value Reference Range Comments MAGNESIUM (BEAKER) (test rskb=677) 1.7 mg/dL 1.6-2.6 BASIC METABOLIC [id number] 03:49:00 Test Item Value Reference Range Comments SODIUM (BEAKER) (test 136 meq/L 136-145 iivt=915) POTASSIUM (BEAKER) (test 3.5 meq/L 3.5-5.1 lkuh=274) CHLORIDE (BEAKER) (test 102 meq/L 98-107 aupv=267) CO2 (BEAKER) (test 27 meq/L 22-29 exth=050) BLOOD UREA NITROGEN 31 mg/dL 7-21 (BEAKER) (test ydvx=492) CREATININE (BEAKER) (test 1.22 mg/dL 0.57-1.25 skur=995) GLUCOSE RANDOM (BEAKER) 122 mg/dL 70-105 (test rrwj=473) CALCIUM (BEAKER) (test 8.9 mg/dL 8.4-10.2 xyrh=054) EGFR (BEAKER) (test 57 mL/min/1.73 sq m ESTIMATED GFR IS NOT igrf=2240) ACCURATE CREATININE CLEARANCE IN PREDICTING GLOMERULAR FILTRATION RATE. ESTIMATED GFR IS NOT APPLICABLE FOR DIALYSIS PATIENTS. CBC W/PLT COUNT & AUTO [id number] 03:32:00 Test Item Value Reference Range Comments WHITE BLOOD CELL COUNT (BEAKER) (test rtjm=255) 10.0 K/ L 3.5-10.5 RED BLOOD CELL COUNT (BEAKER) (test agsh=622) 2.75 M/ L 4.63-6.08 HEMOGLOBIN (BEAKER) (test slbm=938) 8.7 GM/DL 13.7-17.5 HEMATOCRIT (BEAKER) (test wgex=749) 26.7 % 40.1-51.0 MEAN CORPUSCULAR VOLUME (BEAKER) (test ypau=370) 97.1 fL 79.0-92.2 MEAN CORPUSCULAR HEMOGLOBIN (BEAKER) (test 31.6 pg 25.7-32.2 mnhw=938) MEAN CORPUSCULAR HEMOGLOBIN CONC (BEAKER) (test 32.6 GM/DL 32.3-36.5 ccgy=507) RED CELL DISTRIBUTION WIDTH (BEAKER) (test 12.5 % 11.6-14.4 izpq=827) PLATELET COUNT (BEAKER) (test qwws=286) 189 K/CU MM 150-450 MEAN PLATELET VOLUME (BEAKER) (test vhsj=671) 9.9 fL 9.4-12.4 NUCLEATED RED BLOOD CELLS (BEAKER) (test 0 /100 WBC 0-0 olvd=983) NEUTROPHILS RELATIVE PERCENT (BEAKER) (test 74 % egrr=539) LYMPHOCYTES RELATIVE PERCENT (BEAKER) (test 10 % zsjp=325) MONOCYTES RELATIVE PERCENT (BEAKER) (test 11 % bwxk=208) EOSINOPHILS RELATIVE PERCENT (BEAKER) (test 4 % tcdv=686) BASOPHILS RELATIVE PERCENT (BEAKER) (test 1 % rprw=471) NEUTROPHILS ABSOLUTE COUNT (BEAKER) (test 7.39 K/ L 1.78-5.38 ojlc=988) LYMPHOCYTES ABSOLUTE COUNT (BEAKER) (test 0.99 K/ L 1.32-3.57 xfzk=386) MONOCYTES ABSOLUTE COUNT (BEAKER) (test 1.12 K/ L 0.30-0.82 hizt=223) EOSINOPHILS ABSOLUTE COUNT (BEAKER) (test 0.40 K/ L 0.04-0.54 fopb=328) BASOPHILS ABSOLUTE COUNT (BEAKER) (test 0.06 K/ L 0.01-0.08 lnmi=166) IMMATURE GRANULOCYTES-RELATIVE PERCENT (BEAKER) 1 % 0-1 (test hrew=9403) [id number] 10:17:00 Test Item Value Reference Range Comments MAGNESIUM (BEAKER) (test jkxf=570) 1.6 mg/dL 1.6-2.6 BASIC METABOLIC [id number] 10:17:00 Test Item Value Reference Range Comments SODIUM (BEAKER) (test 135 meq/L 136-145 lorr=329) POTASSIUM (BEAKER) (test 3.8 meq/L 3.5-5.1 sbie=934) CHLORIDE (BEAKER) (test 101 meq/L 98-107 jewt=541) CO2 (BEAKER) (test 27 meq/L 22-29 jsgg=108) BLOOD UREA NITROGEN 30 mg/dL 7-21 (BEAKER) (test zuvx=416) CREATININE (BEAKER) (test 1.23 mg/dL 0.57-1.25 daxj=596) GLUCOSE RANDOM (BEAKER) 120 mg/dL 70-105 (test vuea=755) CALCIUM (BEAKER) (test 8.6 mg/dL 8.4-10.2 xkcu=214) EGFR (BEAKER) (test 57 mL/min/1.73 sq m ESTIMATED GFR IS NOT uamy=8144) ACCURATE CREATININE CLEARANCE IN PREDICTING GLOMERULAR FILTRATION RATE. ESTIMATED GFR IS NOT APPLICABLE FOR DIALYSIS PATIENTS. CBC W/PLT COUNT & AUTO [id number] 03:47:00 Test Item Value Reference Range Comments WHITE BLOOD CELL COUNT (BEAKER) (test qexa=056) 10.0 K/ L 3.5-10.5 RED BLOOD CELL COUNT (BEAKER) (test nzmm=416) 2.80 M/ L 4.63-6.08 HEMOGLOBIN (BEAKER) (test aeos=401) 8.9 GM/DL 13.7-17.5 HEMATOCRIT (BEAKER) (test hjtl=845) 26.9 % 40.1-51.0 MEAN CORPUSCULAR VOLUME (BEAKER) (test zyac=726) 96.1 fL 79.0-92.2 MEAN CORPUSCULAR HEMOGLOBIN (BEAKER) (test 31.8 pg 25.7-32.2 xgnc=050) MEAN CORPUSCULAR HEMOGLOBIN CONC (BEAKER) (test 33.1 GM/DL 32.3-36.5 vuxx=759) RED CELL DISTRIBUTION WIDTH (BEAKER) (test 12.5 % 11.6-14.4 zfgs=046) PLATELET COUNT (BEAKER) (test wyou=363) 212 K/CU MM 150-450 MEAN PLATELET VOLUME (BEAKER) (test xdyc=805) 9.4 fL 9.4-12.4 NUCLEATED RED BLOOD CELLS (BEAKER) (test 0 /100 WBC 0-0 ehnl=359) NEUTROPHILS RELATIVE PERCENT (BEAKER) (test 77 % flon=212) LYMPHOCYTES RELATIVE PERCENT (BEAKER) (test 9 % mobl=797) MONOCYTES RELATIVE PERCENT (BEAKER) (test 12 % chhk=026) EOSINOPHILS RELATIVE PERCENT (BEAKER) (test 2 % woii=531) BASOPHILS RELATIVE PERCENT (BEAKER) (test 0 % vhsu=155) NEUTROPHILS ABSOLUTE COUNT (BEAKER) (test 7.65 K/ L 1.78-5.38 pfuk=701) LYMPHOCYTES ABSOLUTE COUNT (BEAKER) (test 0.92 K/ L 1.32-3.57 hdzn=788) MONOCYTES ABSOLUTE COUNT (BEAKER) (test 1.17 K/ L 0.30-0.82 cmqs=795) EOSINOPHILS ABSOLUTE COUNT (BEAKER) (test 0.16 K/ L 0.04-0.54 jtjt=268) BASOPHILS ABSOLUTE COUNT (BEAKER) (test 0.04 K/ L 0.01-0.08 jlxh=767) IMMATURE GRANULOCYTES-RELATIVE PERCENT (BEAKER) 1 % 0-1 (test kdli=7943) [id number] 17:44:00 Test Item Value Reference Range Comments ACTIVATED CLOTTING TIME 131 sec TESTED AT [facility] [address] [facility] (BEAKER) (test xvzw=814) [facility] [address] BLOOD GAS, [id number] 17:15:00 Test Item Value Reference Range Comments PH ARTERIAL (BEAKER) (test ewvw=016) 7.36 7.35-7.45 PCO2 ARTERIAL (BEAKER) (test icrj=069) 49 mmHg 35-45 PO2 ARTERIAL (BEAKER) (test wnxq=273) 119 mmHg 80-90 O2 SATURATION ARTERIAL (BEAKER) (test nmcz=715) 98.3 % 96.0-97.0 HCO3 ARTERIAL (BEAKER) (test vplu=914) 28 mmol/L 21-29 BASE EXCESS ARTERIAL (BEAKER) (test btyg=775) 1.2 mmol/L -2.0-3.0 PATIENT TEMPERATURE (BEAKER) (test azsg=8252) 35.4 C FIO2 (BEAKER) (test qgvn=4303) 30.0 % SODIUM NA-STAT [id number] 17:15:00 Test Item Value Reference Range Comments SODIUM (BEAKER) (test lelg=881) 132 meq/L 135-148 HGB/HCT (H&H) - STAT [id number] 17:15:00 Test Item Value Reference Range Comments HEMOGLOBIN (BEAKER) (test lvgf=715) 11.2 g/dL 13.0-16.8 HEMATOCRIT (BEAKER) (test qivk=638) 33.0 % 40.0-50.0 GLUCOSE-STAT [id number] 17:14:00 Test Item Value Reference Range Comments GLUCOSE RANDOM (BEAKER) (test qrsn=796) 104 mg/dL 70-110 POTASSIUM-STAT [id number] 17:14:00 Test Item Value Reference Range Comments POTASSIUM (BEAKER) (test zyav=571) 4.1 meq/L 3.6-5.5 [id number] 17:11:00 Test Item Value Reference Range Comments ACTIVATED CLOTTING TIME 268 sec TESTED AT [facility] [address] (BEAKER) (test hivd=533) [place] [id number] 16:12:00 Test Item Value Reference Range Comments ACTIVATED CLOTTING TIME 257 sec TESTED AT [facility] [address] (BEAKER) (test supd=034) [place] [id number] BASIC METABOLIC [id number] 07:04:00 Test Item Value Reference Range Comments SODIUM (BEAKER) (test 132 meq/L 136-145 rvro=934) POTASSIUM (BEAKER) (test 4.0 meq/L 3.5-5.1 mttn=902) CHLORIDE (BEAKER) (test 99 meq/L 98-107 fvhy=798) CO2 (BEAKER) (test 24 meq/L 22-29 tqvd=927) BLOOD UREA NITROGEN 30 mg/dL 7-21 (BEAKER) (test ciwx=611) CREATININE (BEAKER) (test 1.14 mg/dL 0.57-1.25 mesp=362) GLUCOSE RANDOM (BEAKER) 101 mg/dL 70-105 (test uqej=762) CALCIUM (BEAKER) (test 9.1 mg/dL 8.4-10.2 rwjn=461) EGFR (BEAKER) (test 62 mL/min/1.73 sq m ESTIMATED GFR IS NOT jhrm=8621) ACCURATE CREATININE CLEARANCE IN PREDICTING GLOMERULAR FILTRATION RATE. ESTIMATED GFR IS NOT APPLICABLE FOR DIALYSIS PATIENTS. CBC (HEMOGRAM ONLY)2018-09-25 06:47:00 Test Item Value Reference Range Comments WHITE BLOOD CELL COUNT (BEAKER) (test sgwz=260) 10.4 K/ L 3.5-10.5 RED BLOOD CELL COUNT (BEAKER) (test mbnt=696) 3.34 M/ L 4.63-6.08 HEMOGLOBIN (BEAKER) (test yqpp=815) 10.6 GM/DL 13.7-17.5 HEMATOCRIT (BEAKER) (test kplh=253) 32.7 % 40.1-51.0 MEAN CORPUSCULAR VOLUME (BEAKER) (test cnsc=802) 97.9 fL 79.0-92.2 MEAN CORPUSCULAR HEMOGLOBIN (BEAKER) (test 31.7 pg 25.7-32.2 rcje=701) MEAN CORPUSCULAR HEMOGLOBIN CONC (BEAKER) (test 32.4 GM/DL 32.3-36.5 aqgz=383) RED CELL DISTRIBUTION WIDTH (BEAKER) (test 12.4 % 11.6-14.4 oimf=618) PLATELET COUNT (BEAKER) (test npgm=750) 248 K/CU MM 150-450 MEAN PLATELET VOLUME (BEAKER) (test foyt=024) 9.4 fL 9.4-12.4 NUCLEATED RED BLOOD CELLS (BEAKER) (test 0 /100 WBC 0-0 wokx=748) URINALYSIS W/ REFLEX URINE [id number] 13:29:00 Test Item Value Reference Range Comments COLOR (BEAKER) (test zzey=323) Light Yellow CLARITY (BEAKER) (test rwou=765) Clear SPECIFIC GRAVITY UA (BEAKER) (test gabe=810) 1.006 1.001-1.035 PH UA (BEAKER) (test hmug=348) 7.0 5.0-8.0 PROTEIN UA (BEAKER) (test aand=928) Negative Negative GLUCOSE UA (BEAKER) (test xcvt=425) Negative Negative KETONES UA (BEAKER) (test ncux=673) Negative Negative BILIRUBIN UA (BEAKER) (test igos=237) Negative Negative BLOOD UA (BEAKER) (test payj=912) Negative Negative NITRITE UA (BEAKER) (test iwlj=554) Negative Negative LEUKOCYTE ESTERASE UA (BEAKER) (test gtes=804) Negative Negative UROBILINOGEN UA (BEAKER) (test pybl=009) 0.2 mg/dL 0.2-1.0 RBC UA (BEAKER) (test ovwm=612) < /HPF WBC UA (BEAKER) (test lqtv=459) < /HPF SOURCE(BEAKER) (test xmip=1251) BASIC METABOLIC [id number] 06:55:00 Test Item Value Reference Range Comments SODIUM (BEAKER) (test 132 meq/L 136-145 wnda=512) POTASSIUM (BEAKER) (test 4.2 meq/L 3.5-5.1 mept=347) CHLORIDE (BEAKER) (test 97 meq/L 98-107 talp=204) CO2 (BEAKER) (test 26 meq/L 22-29 ukbt=444) BLOOD UREA NITROGEN 23 mg/dL 7-21 (BEAKER) (test arwo=855) CREATININE (BEAKER) (test 1.14 mg/dL 0.57-1.25 qebe=745) GLUCOSE RANDOM (BEAKER) 79 mg/dL 70-105 (test ttrh=657) CALCIUM (BEAKER) (test 9.5 mg/dL 8.4-10.2 eqhx=687) EGFR (BEAKER) (test 62 mL/min/1.73 sq m ESTIMATED GFR IS NOT gjlz=5451) ACCURATE CREATININE CLEARANCE IN PREDICTING GLOMERULAR FILTRATION RATE. ESTIMATED GFR IS NOT APPLICABLE FOR DIALYSIS PATIENTS. CBC (HEMOGRAM ONLY)2018-09-24 05:48:00 Test Item Value Reference Range Comments WHITE BLOOD CELL COUNT (BEAKER) (test saaa=083) 14.3 K/ L 3.5-10.5 RED BLOOD CELL COUNT (BEAKER) (test zgru=489) 3.91 M/ L 4.63-6.08 HEMOGLOBIN (BEAKER) (test bymo=574) 12.3 GM/DL 13.7-17.5 HEMATOCRIT (BEAKER) (test fukr=453) 37.8 % 40.1-51.0 MEAN CORPUSCULAR VOLUME (BEAKER) (test yuod=049) 96.7 fL 79.0-92.2 MEAN CORPUSCULAR HEMOGLOBIN (BEAKER) (test 31.5 pg 25.7-32.2 vlbh=012) MEAN CORPUSCULAR HEMOGLOBIN CONC (BEAKER) (test 32.5 GM/DL 32.3-36.5 bpsp=116) RED CELL DISTRIBUTION WIDTH (BEAKER) (test 12.5 % 11.6-14.4 that=271) PLATELET COUNT (BEAKER) (test ghxu=125) 277 K/CU MM 150-450 MEAN PLATELET VOLUME (BEAKER) (test mgcx=011) 9.1 fL 9.4-12.4 NUCLEATED RED BLOOD CELLS (BEAKER) (test 0 /100 WBC 0-0 wdnu=229) POCT-GLUCOSE [id number] 18:09:00 Test Item Value Reference Range Comments POC-GLUCOSE METER (BEAKER) 99 mg/dL 70-110 TESTED AT [facility] [address] [facility] (test xuca=8394) [facility] [address] POCT-GLUCOSE [id number] 13:47:00 Test Item Value Reference Range Comments POC-GLUCOSE METER (BEAKER) 144 mg/dL 70-110 TESTED AT [facility] [address] [facility] (test gvso=6102) [facility] [address] U/S, [id number] 11:20:00Laterality?->Left Reason for exam:->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 However, only trace amount of fluid is seen in the left pleural space, not amenable for safe drainage. Thoracentesis is therefore not performed. Signed: Brett Guardado MDReport Verified Date/Time: 09/23/2018 11:20:35 Reading Location: [address] Ortho Consult Reading Room PROTHROMBIN [id number] 05:40:00 Test Item Value Reference Range Comments PROTIME (BEAKER) (test oovp=220) 14.7 seconds 11.7-14.7 INR (BEAKER) (test bhld=705) 1.2 <=5.9 RECOMMENDED COUMADIN/WARFARIN INR THERAPY RANGESSTANDARD DOSE: 2.0 - 3.0 Includes: PROPHYLAXIS forvenous thrombosis, systemic embolization; TREATMENT for venous thrombosis and/or pulmonary embolus.HIGH RISK: Target INR is 2.5-3.5 for patients with mechanical heart valves.[id number] 05:40:00 Test Item Value Reference Range Comments PARTIAL THROMBOPLASTIN TIME (BEAKER) (test 31.6 seconds 22.5-36.0 ikpu=134) [id number] 05:21:00 Test Item Value Reference Range Comments MAGNESIUM (BEAKER) (test hpga=647) 1.6 mg/dL 1.6-2.6 BASIC METABOLIC [id number] 05:21:00 Test Item Value Reference Range Comments SODIUM (BEAKER) (test 132 meq/L 136-145 gsog=274) POTASSIUM (BEAKER) (test 3.5 meq/L 3.5-5.1 nonc=960) CHLORIDE (BEAKER) (test 96 meq/L 98-107 qqtz=439) CO2 (BEAKER) (test 28 meq/L 22-29 jrak=210) BLOOD UREA NITROGEN 22 mg/dL 7-21 (BEAKER) (test axsh=233) CREATININE (BEAKER) (test 1.06 mg/dL 0.57-1.25 oeir=597) GLUCOSE RANDOM (BEAKER) 108 mg/dL 70-105 (test wpee=373) CALCIUM (BEAKER) (test 9.2 mg/dL 8.4-10.2 wbyy=631) EGFR (BEAKER) (test 67 mL/min/1.73 sq m ESTIMATED GFR IS NOT bwqa=4251) ACCURATE CREATININE CLEARANCE IN PREDICTING GLOMERULAR FILTRATION RATE. ESTIMATED GFR IS NOT APPLICABLE FOR DIALYSIS PATIENTS. [id number] 05:20:00 Test Item Value Reference Range Comments MAGNESIUM (BEAKER) (test syql=283) 1.5 mg/dL 1.6-2.6 BASIC METABOLIC [id number] 05:20:00 Test Item Value Reference Range Comments SODIUM (BEAKER) (test 135 meq/L 136-145 ykqc=833) POTASSIUM (BEAKER) (test 3.6 meq/L 3.5-5.1 ofij=454) CHLORIDE (BEAKER) (test 98 meq/L 98-107 aoax=039) CO2 (BEAKER) (test 29 meq/L 22-29 lnqj=151) BLOOD UREA NITROGEN 22 mg/dL 7-21 (BEAKER) (test gubu=125) CREATININE (BEAKER) (test 1.07 mg/dL 0.57-1.25 onnr=068) GLUCOSE RANDOM (BEAKER) 108 mg/dL 70-105 (test sfit=851) CALCIUM (BEAKER) (test 9.3 mg/dL 8.4-10.2 xlpy=990) EGFR (BEAKER) (test 67 mL/min/1.73 sq m ESTIMATED GFR IS NOT brah=2671) ACCURATE CREATININE CLEARANCE IN PREDICTING GLOMERULAR FILTRATION RATE. ESTIMATED GFR IS NOT APPLICABLE FOR DIALYSIS PATIENTS. CBC W/PLT COUNT & AUTO [id number] 05:02:00 Test Item Value Reference Range Comments WHITE BLOOD CELL COUNT (BEAKER) (test ejvi=577) 8.3 K/ L 3.5-10.5 RED BLOOD CELL COUNT (BEAKER) (test ofza=883) 3.67 M/ L 4.63-6.08 HEMOGLOBIN (BEAKER) (test auhc=461) 11.5 GM/DL 13.7-17.5 HEMATOCRIT (BEAKER) (test snci=773) 35.0 % 40.1-51.0 MEAN CORPUSCULAR VOLUME (BEAKER) (test fuut=788) 95.4 fL 79.0-92.2 MEAN CORPUSCULAR HEMOGLOBIN (BEAKER) (test 31.3 pg 25.7-32.2 ckfc=876) MEAN CORPUSCULAR HEMOGLOBIN CONC (BEAKER) (test 32.9 GM/DL 32.3-36.5 ensz=310) RED CELL DISTRIBUTION WIDTH (BEAKER) (test 12.5 % 11.6-14.4 texd=655) PLATELET COUNT (BEAKER) (test lkfw=759) 285 K/CU MM 150-450 MEAN PLATELET VOLUME (BEAKER) (test upjx=050) 9.2 fL 9.4-12.4 NUCLEATED RED BLOOD CELLS (BEAKER) (test 0 /100 WBC 0-0 hbtr=756) NEUTROPHILS RELATIVE PERCENT (BEAKER) (test 71 % qeqs=114) LYMPHOCYTES RELATIVE PERCENT (BEAKER) (test 10 % pxla=978) MONOCYTES RELATIVE PERCENT (BEAKER) (test 12 % xize=252) EOSINOPHILS RELATIVE PERCENT (BEAKER) (test 7 % nvas=154) BASOPHILS RELATIVE PERCENT (BEAKER) (test 1 % tuxn=948) NEUTROPHILS ABSOLUTE COUNT (BEAKER) (test 5.88 K/ L 1.78-5.38 pjeu=939) LYMPHOCYTES ABSOLUTE COUNT (BEAKER) (test 0.79 K/ L 1.32-3.57 wwlp=705) MONOCYTES ABSOLUTE COUNT (BEAKER) (test 1.01 K/ L 0.30-0.82 bghk=491) EOSINOPHILS ABSOLUTE COUNT (BEAKER) (test 0.55 K/ L 0.04-0.54 imuq=664) BASOPHILS ABSOLUTE COUNT (BEAKER) (test 0.06 K/ L 0.01-0.08 ilrs=358) IMMATURE GRANULOCYTES-RELATIVE PERCENT (BEAKER) 1 % 0-1 (test dzps=2928) CBC (HEMOGRAM ONLY)2018-09-23 05:02:00 Test Item Value Reference Range Comments WHITE BLOOD CELL COUNT (BEAKER) (test hnhk=820) 8.3 K/ L 3.5-10.5 RED BLOOD CELL COUNT (BEAKER) (test iyca=556) 3.67 M/ L 4.63-6.08 HEMOGLOBIN (BEAKER) (test xftr=646) 11.5 GM/DL 13.7-17.5 HEMATOCRIT (BEAKER) (test wbnb=442) 35.0 % 40.1-51.0 MEAN CORPUSCULAR VOLUME (BEAKER) (test kmkz=334) 95.4 fL 79.0-92.2 MEAN CORPUSCULAR HEMOGLOBIN (BEAKER) (test 31.3 pg 25.7-32.2 wtob=943) MEAN CORPUSCULAR HEMOGLOBIN CONC (BEAKER) (test 32.9 GM/DL 32.3-36.5 nbgb=513) RED CELL DISTRIBUTION WIDTH (BEAKER) (test 12.5 % 11.6-14.4 xizd=422) PLATELET COUNT (BEAKER) (test zzig=198) 285 K/CU MM 150-450 MEAN PLATELET VOLUME (BEAKER) (test bvxl=442) 9.2 fL 9.4-12.4 NUCLEATED RED BLOOD CELLS (BEAKER) (test 0 /100 WBC 0-0 duai=036) POCT-GLUCOSE [id number] 21:35:00 Test Item Value Reference Range Comments POC-GLUCOSE METER (BEAKER) 133 mg/dL 70-110 TESTED AT [address] (test rcab=6354) [place] [id number] POCT-GLUCOSE [id number] 17:37:00 Test Item Value Reference Range Comments POC-GLUCOSE METER (BEAKER) 147 mg/dL 70-110 TESTED AT [address] (test liez=3567) [place] [id number] 17:19:00 Test Item Value Reference Range Comments MAGNESIUM (BEAKER) (test akwz=721) 1.5 mg/dL 1.6-2.6 BASIC METABOLIC [id number] 17:19:00 Test Item Value Reference Range Comments SODIUM (BEAKER) (test 136 meq/L 136-145 pnxu=804) POTASSIUM (BEAKER) (test 3.4 meq/L 3.5-5.1 djut=060) CHLORIDE (BEAKER) (test 97 meq/L 98-107 thfg=917) CO2 (BEAKER) (test 31 meq/L 22-29 gjna=691) BLOOD UREA NITROGEN 21 mg/dL 7-21 (BEAKER) (test syfk=085) CREATININE (BEAKER) (test 1.12 mg/dL 0.57-1.25 mxtp=558) GLUCOSE RANDOM (BEAKER) 114 mg/dL 70-105 (test dspj=714) CALCIUM (BEAKER) (test 9.6 mg/dL 8.4-10.2 wkxy=959) EGFR (BEAKER) (test 63 mL/min/1.73 sq m ESTIMATED GFR IS NOT zcwh=1864) ACCURATE CREATININE CLEARANCE IN PREDICTING GLOMERULAR FILTRATION RATE. ESTIMATED GFR IS NOT APPLICABLE FOR DIALYSIS PATIENTS. POCT-GLUCOSE [id number] 13:08:00 Test Item Value Reference Range Comments POC-GLUCOSE METER (BEAKER) 106 mg/dL 70-110 TESTED AT [place] [id number] [facility] (test cnqk=1671) [facility] [id number] POCT-GLUCOSE [id number] 21:49:00 Test Item Value Reference Range Comments POC-GLUCOSE METER (BEAKER) 116 mg/dL 70-110 TESTED AT [address] (test vcwi=9564) [facility] [id number] POCT-GLUCOSE [id number] 17:56:00 Test Item Value Reference Range Comments POC-GLUCOSE METER (BEAKER) 142 mg/dL 70-110 TESTED AT [address] (test debk=5262) [facility] [id number] CT, CTA, [id number] 14:55:00Addendum BeginsREPORT STATUS:A Addendum:There is increased density visualized in the left pleural fluid collection. Clinical correlation is needed if an inflammatory or hemorrhagic process is suspected.I agree with the previously described non vascular findings. Signed: Shirlene Ackerman MDReport Verified Date/Time: 09/21/2018 14:55:20 Reading Location: [place] [address] Angio Body Reading RoomAddendum EndsFINAL REPORT CT angiography of the thoracoabdominal aorta [...] the dynamic passage of intravenous contrast material. Multi- planar 3-D volume-rendering reconstruction was performed using an independent workstation interactively by the interpreting physician as well as the 3-D specialist for optimal visualization of the thoracoabdominal aorta, the pelvic arteries as well asits proximal branches. Please refer to the contrast [...] reformatted data set sent to PACS. Regarding theaorta, minimal calcification is seen in the ascending aorta and and the sinotubular junction is freeof calcification. The transverse arch and descending thoracic [...] calcification is seen at the origin of theceliac axis. Similar finding seen at the origin of the SMA. At the mid SMA substantial noncalcific atherosclerosis is identified, and a significant focal stenosis is identified. The remainder of the SMA is unremarkable. The LEE ANN is widely patent. The common and the external iliac arteries, bilaterally,are patent with calcific atherosclerosis identified. The left common femoral artery have increased calcific atherosclerosis seen with yrqn-pr-ymhszshg lesion identified. The right common femoral arteryis unremarkable. However, at the origin of the right SFA, at image 513, it is essentially occluded and more proximally substantial calcific atherosclerosis is present. Dimensions that may be helpful for TAVR as follows : The ascending thoracic aorta is free of calcification. The major and minor aorticannulus diameter measures 25.3 and 18.0 mm, respectively. [...] the coronary artery ostium, RCC (diastole): 13.1 mmThe sinus of Valsalva height to the takeoff of the coronary artery ostium , LCC (diastole): 14.6 mm The sinus of Valsalva diameter, RCC (diastole): 31.6 mmThe sinus of Valsalva diameter, LCC (diastole): 31.2 mmThe sinus of Valsalva diameter, NCC (diastole): 32.5 [...] external iliac artery measures 6.7 and 7.5 mm , respectively with mild tortuosity and mild calcific atherosclerosis present. The minimum and the perpendicular left femoral artery measures 5.6 and 6.1 mm, respectively with mild tortuosityand mild to moderate calcific atherosclerosis present. The [...] An addendum will dictated thereafter, if needed. Pulmonaryvasculature is prominent indicating underlying cardiac congestion. Some [...] glands are not enlarged. The pancreas and gallbladderhas no gross abnormality identified. No acute renal [...] unremarkable. In the bony windows, no acute bonypathology is identified. Some degenerative changes are noted. [...] An addendum will be dictated by the Online Journalist Radiologist regarding the nonvascular findings. Signed: Shawn Barnes MDReport Verified Date/Time: 09/21/2018 14:01:54 Reading Location: [place] [address], CTA [id number] 14:55:00Addendum BeginsREPORT STATUS :A Addendum:There is increased density visualized in the left pleural fluid collection. Clinical correlation is needed if an inflammatory or hemorrhagic process is suspected.I agree with the previously described non vascular findings. Signed: Shirlene Ackerman MDReport Verified Date/Time : 09/21/2018 14:55:20 Reading Location: [place] [address] Angio Body Reading RoomAddendum EndsFINAL REPORT CT angiography of the thoracoabdominal aorta [...] thoracoabdominal aorta, the pelvic arteries as well asits proximal branches. Please refer to the contrast sheet scanned in the EPIC system for the amount and route of contrast given. This exam was performed according to our departmental dose-optimisation programme, which includes automated exposure control, adjustment of the mA and/ or kV according to patient size and/or use [...] reformatted data set sent to PACS. Regarding theaorta, minimal calcification is seen in the ascending aorta and and the sinotubular junction is freeof calcification. The transverse arch and descending thoracic [...] calcification is seen at the origin of theceliac axis. Similar finding seen at the origin of the SMA. At the mid SMA substantial noncalcific atherosclerosis is identified, and a significant focal stenosis is identified. The remainder of the SMA is unremarkable. The LEE ANN is widely patent. The common and the external iliac arteries, bilaterally,are patent with calcific atherosclerosis identified. The left common femoral artery have increased calcific atherosclerosis seen with fssr-km-dqlodyyn lesion identified. The right common femoral arteryis unremarkable. However, at the origin of the right SFA, at image 513, it is essentially occluded and more proximally substantial calcific atherosclerosis is present. Dimensions that may be helpful for TAVR as follows : The ascending thoracic aorta is free of calcification. The major and minor aorticannulus diameter measures 25.3 and 18.0 mm, respectively. [...] For reference purpose, per [employer] R don, recommendation are as follows: CT perimeter between 56.5-62.8 mm (23 mm valve); 62.8-72.3 mm (26 mm valve); 72.3-81.7 mm (29 mm valve); and 81.7-94.2. mm (34 mm valve). Agatston Score is 2095. Aortic valve area is 46 sq mm. The sinus of Valsalva height to the takeoff of the coronary artery ostium, RCC (diastole): 13.1 mmThe sinus of Valsalva height to the takeoff of the coronary artery ostium , LCC (diastole): 14.6 mm The sinus of Valsalva diameter, RCC (diastole): 31.6 mmThe sinus of Valsalva diameter, LCC (diastole): 31.2 mmThe sinus of Valsalva diameter, NCC (diastole): 32.5 [...] external iliac artery measures 6.7 and 7.5 mm , respectively with mild tortuosity and mild calcific atherosclerosis present. The minimum and the perpendicular left femoral artery measures 5.6 and 6.1 mm, respectively with mild tortuosityand mild to moderate calcific atherosclerosis present. The [...] An addendum will dictated thereafter, if needed. Pulmonaryvasculature is prominent indicating underlying cardiac congestion. Some [...] glands are not enlarged. The pancreas and gallbladderhas no gross abnormality identified. No acute renal [...] unremarkable. In the bony windows, no acute bonypathology is identified. Some degenerative changes are noted. [...] An addendum will be dictated by the Online Journalist Radiologist regarding the nonvascular findings. Signed: Shawn Barnes MDReport Verified Date/Time: 09/21/2018 14:01:54 Reading Location: [place] [address] Cardiology MRI [facility] METABOLIC [id number] 07:01:00 Test Item Value Reference Range Comments SODIUM (BEAKER) (test 129 meq/L 136-145 uran=909) POTASSIUM (BEAKER) (test 3.3 meq/L 3.5-5.1 cobq=700) CHLORIDE (BEAKER) (test 96 meq/L 98-107 uddb=337) CO2 (BEAKER) (test 24 meq/L 22-29 pfag=837) BLOOD UREA NITROGEN 20 mg/dL 7-21 (BEAKER) (test tvvc=825) CREATININE (BEAKER) (test 1.07 mg/dL 0.57-1.25 daph=862) GLUCOSE RANDOM (BEAKER) 104 mg/dL 70-105 (test znda=706) CALCIUM (BEAKER) (test 8.8 mg/dL 8.4-10.2 wdal=943) EGFR (BEAKER) (test 67 mL/min/1.73 sq m ESTIMATED GFR IS NOT miri=5627) ACCURATE CREATININE CLEARANCE IN PREDICTING GLOMERULAR FILTRATION RATE. ESTIMATED GFR IS NOT APPLICABLE FOR DIALYSIS PATIENTS. POCT-GLUCOSE [id number] 22:18:00 Test Item Value Reference Range Comments POC-GLUCOSE METER (BEAKER) 176 mg/dL 70-110 TESTED AT [facility] [address] [facility] (test gjpk=6633) [facility] [address] RAD, CHEST, 1 VIEW, NON [id number] 20:32:00Reason for exam:->SOBShould this be performed at the bedside?->YesFINAL REPORT Chest one view AP 09/20/2018 8:32 PM CLINICAL INDICATION: SOB COMPARISON: 2014 IMPRESSION: There are trace right and small volume pleural effusions. Bibasilar opacities suggest atelectasis. Pneumonia should be excluded clinically. The cardiac silhouette is prominent, but stable. The central pulmonary vasculature is not engorged. Cardiac support hardware is unchanged in position. Signed: Ramses Rueda MDReport Verified Date/Time: 09/20/2018 20:32 :40 Reading Location: [facility] Radiology Reading Room POCT-GLUCOSE [id number] 17:05:00 Test Item Value Reference Range Comments POC-GLUCOSE METER (BEAKER) 164 mg/dL 70-110 TESTED AT [address] (test ihxe=6987) [place] [address] POCT-GLUCOSE [id number] 13:55:00 Test Item Value Reference Range Comments POC-GLUCOSE METER (BEAKER) 105 mg/dL 70-110 TESTED AT [address] (test axnc=8130) [place] [id number] POCT-GLUCOSE [id number] 09:01:00 Test Item Value Reference Range Comments POC-GLUCOSE METER (BEAKER) 116 mg/dL 70-110 TESTED AT [address] (test djto=0717) [place] [id number] BASIC METABOLIC [id number] 05:36:00 Test Item Value Reference Range Comments SODIUM (BEAKER) (test 131 meq/L 136-145 dycl=285) POTASSIUM (BEAKER) (test 3.8 meq/L 3.5-5.1 rmat=921) CHLORIDE (BEAKER) (test 100 meq/L 98-107 djfg=360) CO2 (BEAKER) (test 23 meq/L 22-29 xpkm=399) BLOOD UREA NITROGEN 12 mg/dL 7-21 (BEAKER) (test jidk=883) CREATININE (BEAKER) (test 0.81 mg/dL 0.57-1.25 dnmy=597) GLUCOSE RANDOM (BEAKER) 102 mg/dL 70-105 (test ygkd=518) CALCIUM (BEAKER) (test 9.1 mg/dL 8.4-10.2 eafq=573) EGFR (BEAKER) (test 92 mL/min/1.73 sq m ESTIMATED GFR IS NOT olih=0047) ACCURATE CREATININE CLEARANCE IN PREDICTING GLOMERULAR FILTRATION RATE. ESTIMATED GFR IS NOT APPLICABLE FOR DIALYSIS PATIENTS. POCT-GLUCOSE [id number] 23:13:00 Test Item Value Reference Range Comments POC-GLUCOSE METER (BEAKER) 119 mg/dL 70-110 TESTED AT [address] (test zztp=6115) [place] [address] POCT-GLUCOSE [id number] 18:21:00 Test Item Value Reference Range Comments POC-GLUCOSE METER (BEAKER) 155 mg/dL 70-110 TESTED AT [address] (test ujrw=1914) [place] [address] HEMOGLOBIN [id number] 12:52:00 Test Item Value Reference Range Comments HEMOGLOBIN A1C (BEAKER) (test vwbc=543) 6.4 % 4.3-6.1 POCT-GLUCOSE [id number] 09:22:00 Test Item Value Reference Range Comments POC-GLUCOSE METER (BEAKER) 99 mg/dL 70-110 TESTED AT [address] (test knbd=6147) [place] [address] BASIC METABOLIC [id number] 06:48:00 Test Item Value Reference Range Comments SODIUM (BEAKER) (test 128 meq/L 136-145 wsci=410) POTASSIUM (BEAKER) (test 4.2 meq/L 3.5-5.1 wzvz=264) CHLORIDE (BEAKER) (test 99 meq/L 98-107 lsry=888) CO2 (BEAKER) (test 24 meq/L 22-29 neoj=416) BLOOD UREA NITROGEN 15 mg/dL 7-21 (BEAKER) (test qoyc=265) CREATININE (BEAKER) (test 0.81 mg/dL 0.57-1.25 kfhm=341) GLUCOSE RANDOM (BEAKER) 96 mg/dL 70-105 (test qkee=953) CALCIUM (BEAKER) (test 8.8 mg/dL 8.4-10.2 jzwu=451) EGFR (BEAKER) (test 92 mL/min/1.73 sq m ESTIMATED GFR IS NOT ldeb=7781) ACCURATE CREATININE CLEARANCE IN PREDICTING GLOMERULAR FILTRATION RATE. ESTIMATED GFR IS NOT APPLICABLE FOR DIALYSIS PATIENTS. TROPONIN [id number] 06:46:00 Test Item Value Reference Range Comments TROPONIN I (BEAKER) (test ikbx=920) 0.01 ng/mL 0.00-0.03 Troponin I (TnI) levels must be interpreted in the context of the presenting symptoms and the clinical findings. Elevated TnI levels indicate myocardial damage, but are not specific for ischemic heart disease. Elevated TnI levels are seen in patients with other cardiac conditions (including myocarditis and congestive heart failure), and slight TnI elevations occur in patients with other conditions, including sepsis, renal failure, acidosis, acute neurological disease, and persistent tachyarrhythmia.CBC W/PLT COUNT & AUTO [id number] 06:29:00 Test Item Value Reference Range Comments WHITE BLOOD CELL COUNT (BEAKER) (test zkaq=714) 8.2 K/ L 3.5-10.5 RED BLOOD CELL COUNT (BEAKER) (test ljes=546) 3.40 M/ L 4.63-6.08 HEMOGLOBIN (BEAKER) (test ezph=999) 10.8 GM/DL 13.7-17.5 HEMATOCRIT (BEAKER) (test mjzk=884) 32.1 % 40.1-51.0 MEAN CORPUSCULAR VOLUME (BEAKER) (test rovb=434) 94.4 fL 79.0-92.2 MEAN CORPUSCULAR HEMOGLOBIN (BEAKER) (test 31.8 pg 25.7-32.2 xmnl=414) MEAN CORPUSCULAR HEMOGLOBIN CONC (BEAKER) (test 33.6 GM/DL 32.3-36.5 wlsn=024) RED CELL DISTRIBUTION WIDTH (BEAKER) (test 12.5 % 11.6-14.4 owmz=733) PLATELET COUNT (BEAKER) (test zrkp=331) 257 K/CU MM 150-450 MEAN PLATELET VOLUME (BEAKER) (test qdmn=115) 9.6 fL 9.4-12.4 NUCLEATED RED BLOOD CELLS (BEAKER) (test 0 /100 WBC 0-0 hlwm=390) NEUTROPHILS RELATIVE PERCENT (BEAKER) (test 75 % vezs=516) LYMPHOCYTES RELATIVE PERCENT (BEAKER) (test 10 % hxlh=822) MONOCYTES RELATIVE PERCENT (BEAKER) (test 11 % xlxg=818) EOSINOPHILS RELATIVE PERCENT (BEAKER) (test 3 % hecp=271) BASOPHILS RELATIVE PERCENT (BEAKER) (test 0 % tvbz=547) NEUTROPHILS ABSOLUTE COUNT (BEAKER) (test 6.13 K/ L 1.78-5.38 xvot=582) LYMPHOCYTES ABSOLUTE COUNT (BEAKER) (test 0.81 K/ L 1.32-3.57 vnjp=869) MONOCYTES ABSOLUTE COUNT (BEAKER) (test 0.88 K/ L 0.30-0.82 apfj=231) EOSINOPHILS ABSOLUTE COUNT (BEAKER) (test 0.27 K/ L 0.04-0.54 jcri=619) BASOPHILS ABSOLUTE COUNT (BEAKER) (test 0.03 K/ L 0.01-0.08 giee=768) IMMATURE GRANULOCYTES-RELATIVE PERCENT (BEAKER) 1 % 0-1 (test evuc=5428) TROPONIN [id number] 01:37:00 Test Item Value Reference Range Comments TROPONIN I (BEAKER) (test hrsy=853) < ng/mL 0.00-0.03 Troponin I (TnI) levels must be interpreted in the context of the presenting symptoms and the clinical findings. Elevated TnI levels indicate myocardial damage, but are not specific for ischemic heart disease. Elevated TnI levels are seen in patients with other cardiac conditions (including myocarditis and congestive heart failure), and slight TnI elevations occur in patients with other conditions, including sepsis, renal failure, acidosis, acute neurological disease, and persistent tachyarrhythmia.B-TYPE NATRIURETIC FACTOR (BNP) 19:01:00 Test Item Value Reference Range Comments B-TYPE NATRIURETIC PEPTIDE (BEAKER) (test 1260 pg/mL 0-100 deab=945) COMPREHENSIVE METABOLIC [id number] 18:56:00 Test Item Value Reference Range Comments TOTAL PROTEIN (BEAKER) 6.6 gm/dL 6.0-8.3 (test noqm=855) ALBUMIN (BEAKER) (test 3.8 g/dL 3.5-5.0 xvjc=8541) ALKALINE PHOSPHATASE 90 U/L 40-150 (BEAKER) (test xzbc=857) BILIRUBIN TOTAL (BEAKER) 0.8 mg/dL 0.2-1.2 (test dszu=530) SODIUM (BEAKER) (test 130 meq/L 136-145 umij=527) POTASSIUM (BEAKER) (test 3.8 meq/L 3.5-5.1 wqwr=216) CHLORIDE (BEAKER) (test 96 meq/L 98-107 pbjq=477) CO2 (BEAKER) (test 26 meq/L 22-29 sqcx=804) BLOOD UREA NITROGEN 20 mg/dL 7-21 (BEAKER) (test hnua=588) CREATININE (BEAKER) (test 0.98 mg/dL 0.57-1.25 orbk=375) GLUCOSE RANDOM (BEAKER) 103 mg/dL 70-105 (test ddmd=520) CALCIUM (BEAKER) (test 9.3 mg/dL 8.4-10.2 qydl=445) AST (SGOT) (BEAKER) (test 26 U/L 5-34 bdic=628) ALT (SGPT) (BEAKER) (test 32 U/L 6-55 nqjx=469) EGFR (BEAKER) (test 74 mL/min/1.73 sq m ESTIMATED GFR IS NOT msnb=0674) ACCURATE CREATININE CLEARANCE IN PREDICTING GLOMERULAR FILTRATION RATE. ESTIMATED GFR IS NOT APPLICABLE FOR DIALYSIS PATIENTS. CBC W/PLT COUNT & AUTO [id number] 18:35:00 Test Item Value Reference Range Comments WHITE BLOOD CELL COUNT (BEAKER) (test quqe=393) 10.5 K/ L 3.5-10.5 RED BLOOD CELL COUNT (BEAKER) (test mqli=838) 3.51 M/ L 4.63-6.08 HEMOGLOBIN (BEAKER) (test pboc=177) 11.1 GM/DL 13.7-17.5 HEMATOCRIT (BEAKER) (test cfuq=648) 33.5 % 40.1-51.0 MEAN CORPUSCULAR VOLUME (BEAKER) (test shzd=540) 95.4 fL 79.0-92.2 MEAN CORPUSCULAR HEMOGLOBIN (BEAKER) (test 31.6 pg 25.7-32.2 gimp=534) MEAN CORPUSCULAR HEMOGLOBIN CONC (BEAKER) (test 33.1 GM/DL 32.3-36.5 vowf=424) RED CELL DISTRIBUTION WIDTH (BEAKER) (test 12.4 % 11.6-14.4 pvzc=326) PLATELET COUNT (BEAKER) (test vbae=109) 268 K/CU MM 150-450 MEAN PLATELET VOLUME (BEAKER) (test pmaa=030) 9.3 fL 9.4-12.4 NUCLEATED RED BLOOD CELLS (BEAKER) (test 0 /100 WBC 0-0 tfpd=119) NEUTROPHILS RELATIVE PERCENT (BEAKER) (test 75 % mowu=527) LYMPHOCYTES RELATIVE PERCENT (BEAKER) (test 9 % qmtt=749) MONOCYTES RELATIVE PERCENT (BEAKER) (test 12 % wypg=708) EOSINOPHILS RELATIVE PERCENT (BEAKER) (test 3 % hoed=548) BASOPHILS RELATIVE PERCENT (BEAKER) (test 0 % duob=934) NEUTROPHILS ABSOLUTE COUNT (BEAKER) (test 7.89 K/ L 1.78-5.38 ycun=496) LYMPHOCYTES ABSOLUTE COUNT (BEAKER) (test 0.97 K/ L 1.32-3.57 chyj=533) MONOCYTES ABSOLUTE COUNT (BEAKER) (test 1.21 K/ L 0.30-0.82 ehey=498) EOSINOPHILS ABSOLUTE COUNT (BEAKER) (test 0.32 K/ L 0.04-0.54 cemc=688) BASOPHILS ABSOLUTE COUNT (BEAKER) (test 0.04 K/ L 0.01-0.08 lqol=235) IMMATURE GRANULOCYTES-RELATIVE PERCENT (BEAKER) 1 % 0-1 (test wqgd=9675) POCT-GLUCOSE [id number] 17:14:00 Test Item Value Reference Range Comments POC-GLUCOSE METER (BEAKER) 172 mg/dL 70-110 TESTED AT [facility] [address] (test kekk=9939) [facility] [address]
[2018-10-17] MEDS ORDERED: NA CHLORIDE 0.9% 1,000 ML ONE (05:25)
[2018-10-17 05:38] LABS: Absolute Lymphocytes (CBC) 0.8 K/uL (0.7-4.9); Absolute Monocytes 0.9 K/uL (0.1-1.3); Absolute Neutrophil 5.1 K/uL (1.8-8.0); Eosinophils % 2.2 % (0-4.4); Hematocrit 29.9 % (39.6-49.0); Lymphocytes % 11.3 % (15.3-44.8); MPV 8.1 fL (7.6-11.3); Monocytes % 12.7 % (3.3-12.3); RBC Red Blood Cell Count 3.17 M/uL (4.33-5.43)
--- NOTE | 2018-10-17 05:46 | ER ---
Nurse's Notes [facility] Name: Jeb Lubin Sr Age: 78 yrs Sex: Male : 1940 Arrival Date: 10/17/2018 Time: 05:02 Bed 2 Private MD: Diagnosis: Dyspnea;Essential (primary) hypertension;Type 2 diabetes mellitus;Unspecified combined systolic (congestive) and diastolic (congestive) heart failure;Anemia, unspecified;Pleural effusion in conditions classified elsewhere Presentation: 10/17 05:13 Presenting complaint: EMS states: Shortness of breath worsened tonight; O2 sat at lp1 89-90% on RA on arrival of EMS, wheezes bilaterally; Labored breathing; Patient had recent Cardiac Cath about 10 days ago for valve replacement at [facility]. Transition of care: patient was not received from another setting of care. Onset of symptoms was October 17, 2018. Risk Assessment: Do you want to hurt yourself or someone else? Patient reports no desire to harm self or others. Initial Sepsis Screen: Does the patient meet any 2 criteria? No. Patient's initial sepsis screen is negative. Does the patient have a suspected source of infection? No. Patient's initial sepsis screen is negative. Care prior to arrival: Medication(s) given: Albuterol Neb x 1, Atrovent Neb x 1, IV initiated. 20 GA, in the left antecubital area. 05:13 Method Of Arrival: EMS: [facility] 1 05:13 Acuity: CECILIA 2 lp1 Historical: - Allergies: 05:22 PENICILLINS; lp1 - Home Meds: 05:22 apixaban oral 5 mg oral 1 tab 2 times per day [Active]; atorvastatin 40 mg oral tab lp1 nightly [Active]; Plavix 75 mg Oral tab 1 tab once daily [Active]; docusate sodium 100 mg Oral cap 1 cap 2 times per day [Active]; furosemide 40 mg Oral tab 1 tab once daily [Active]; losartan 100 mg oral tab 1 tab once daily [Active]; melatonin 5 mg Oral tab nightly [Active]; pantoprazole 40 mg oral TbEC 1 tab once daily [Active]; polyethylene glycol 3350 17 gram/dose oral powd once daily [Active]; sotalol 80 mg oral tab 2 times per day [Active]; ascorbic acid (vitamin C) 500 mg tab 2 tab daily [Active]; Vitamin D3 5,000 unit Oral tab twice a day [Active]; dorzolamide-timolol 22.3-6.8 mg/mL ophthalmic drop 1 drop 2 times per day [Active]; memantine 5 mg Oral tab 1 tabs daily [Active]; - PMHx: 05:22 Atrial Fib; Diabetes - NIDDM; Hypertension; lp1 - PSHx: 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 - Social history:: Smoking status: Patient/guardian denies using tobacco, the patient reports quitting approximately 25 years ago. - Ebola Screening: : No symptoms or risks identified at this time. - Family history:: not pertinent. Screenin:34 Abuse screen: Denies threats or abuse. Denies injuries from another. Nutritional lp1 screening: No deficits noted. Tuberculosis screening: No symptoms or risk factors identified. Fall Risk None identified. Assessment: 05:40 General: Appears well groomed, Behavior is appropriate for age. Pain: Denies pain. lp1 Neuro: Level of Consciousness is awake, alert, obeys commands, Oriented to person, place, time, situation. Cardiovascular: Patient's skin is warm and dry. Respiratory: Reports shortness of breath cough that is Airway is patent Respiratory effort is labored, Respiratory pattern is regular, Breath sounds with wheezes bilaterally. the patient has moderate shortness of breath. GI: Abdomen is non-distended. : No signs and/or symptoms were reported regarding the genitourinary system. EENT: No signs and/or symptoms were reported regarding the EENT system. Derm: Skin is intact, Skin is dry, Skin is pale. Musculoskeletal: No signs and/or symptoms reported regarding the musculoskeletal system. 05:45 Reassessment: When attempting to administer medications, patient's son states "that lp1 blood pressure isn't right, because of his weak heart. You have to check a manual blood pressure to be accurate." Patient concerned to be over medicated for blood pressure. 06:00 Reassessment: Patient appears in no apparent distress at this time. Patient states lp1 feeling better. Patient states symptoms have improved. Reassessment: Patient states feeling better after nebulizer tx. Respiratory: Respiratory effort is even, unlabored, Respiratory pattern is regular. 06:31 Reassessment: verbal order per Dr. Matthews to DC IV maintenance fluids; NS stopped. lp1 Vital Signs: 05:15 BP 254 / 96; Pulse 63; Resp 20; Pulse Ox 100% on 6% Nebulizer Mask; Weight 70.76 kg; lp1 Height 5 ft. 5 in. (165.10 cm); Pain 0/10; 05:33 BP 221 / 93; Pulse 59; Resp 17; Temp 98(O); Pulse Ox 98% on R/A; lp1 05:45 BP 210 / 95 RA (man/); lp1 05:50 BP 220 / 100 LA (man/); lp1 05:55 Pulse Ox 93% on R/A; lp1 06:00 BP 217 / 76; Pulse 57; Resp 21; Pulse Ox 97% on 2 lpm NC; lp1 06:35 BP 212 / 74; Pulse 57; Resp 20; Pulse Ox 98% on 2 lpm NC; lp1 07:07 BP 202 / 73; Pulse 55; Resp 14; Pulse Ox 99% on 2 lpm NC; lp1 08:29 BP 207 / 73; Pulse 62; Resp 22; Pulse Ox 98% on R/A; tw2 09:07 BP 193 / 91; Pulse 61; Resp 18; Pulse Ox 97% on R/A; tw2 05:15 Body Mass Index 25.96 (70.76 kg, 165.10 cm) lp1 ED Course: 05:02 Patient arrived in ED. al2 05:04 Marshal Hill MD is Attending Physician. meggan 05:13 Rea Pantoja, RN is Primary Nurse. lp1 05:15 Triage completed. lp1 05:15 Maintain EMS IV. Dressing intact. Good blood return noted. Site clean \\T\\ dry. Gauge \\T\\ lp 1 site: 20g to L AC. 05:16 Arm band placed on left wrist. lp1 05:26 X-ray completed. Portable x-ray completed in exam room. Patient tolerated procedure kw well. 05:27 XRAY Chest (1 view) In Process Unspecified. EDMS 05:30 Inserted saline lock: 20 gauge in right antecubital area, using aseptic technique. lt1 05:34 Patient has correct armband on for positive identification. Placed in gown. Bed in low lp1 position. Side rails up X2. machine sweeper brush maker on. Pulse ox on. NIBP on. 05:41 Sandra Walton MD is Hospitalizing Provider. meggan 06:59 No provider procedures requiring assistance completed. Patient admitted, IV remains in lp1 place. 07:13 Primary Nurse role handed off by Rea Pantoja RN tw2 07:13 Calli De Paz RN is Primary Nurse. tw2 07:15 Awaiting: Losartan 100 mg PO tab from 2nd floor. tw2 09:28 Awaiting: attempted to call report, [facility] is admitting another pt, will need to call tw2 me back per Vinicio Reynoso. 09:57 Primary Nurse role handed off by Calli De Paz RN tw2 09:57 Calli De Paz RN is Primary Nurse. tw2 10:00 Awaiting: attempted to call report, nurse is not ready and will have to call me back. tw2 Administered Medications: 05:30 Not Given (Duplicate Order): NS 0.9% 1000 ml IV at 75 ml/hr continuous meggan 06:00 Drug: Nitro-Bid Ointment 2 % 1 inches Route: Transdermal; Site: anterior chest wall; lp1 06:00 Drug: Lasix 40 mg Route: IVP; Site: right antecubital; lp1 06:37 Follow up: Urine output 150 ml; Response: No adverse reaction lp1 07:35 Drug: Losartan 100 mg Route: PO; tw2 09:27 Follow up: Response: No adverse reaction; Blood pressure is lowered tw2 09:26 Not Given (Duplicate Order): morphine 2 mg IVP once tw2 09:26 Not Given (Duplicate Order): Zofran 4 mg IVP once; over 2 minutes tw2 09:27 Not Given (Duplicate Order): morphine 2 mg IVP once tw2 Output: 06:37 Urine: 150ml; Total: 150ml. lp1 07:25 Urine: 175ml (Voided); Total: 325ml. tw2 08:29 Urine: 850ml (Voided); Total: 1175ml. tw2 10:12 Urine: 700ml (Voided); Total: 1875ml. tw2 Outcome: 05:45 Decision to Hospitalize by Provider. meggan 09:56 Patient left the ED. tw2 10:29 Admitted to Med/surg accompanied by vinicio, via stretcher, room 425, with chart, Report tw2 called to [facility] 10:29 Condition: stable 10:48 Patient left the ED. tw2 Signatures: Dispatcher [employer] EDMarshal Gunter MD MD cha Whitley, Kimberlee kw Pena, Laura RN RN lp1 Calli De Paz RN RN tw2 Cheri, Sienna al2 Dominique, Elvira lt1 Corrections: (The following items were deleted from the chart) 05:17 05:13 Presenting complaint: EMS states: Shortness of breath worsened tonight; O2 sat at lp1 89-90% on RA on arrival of EMS, wheezes bilaterally; Labored breathing; Patient had recent Cardiac Cath about 10 days ago for valve replacement at [place] [id number] 05:17 05:13 Care prior to arrival: None. 1 1
--- NOTE | 2018-10-17 05:46 | EDPHYS ---
Physician Documentation [facility] Name: Jeb Lubin Sr Age: 78 yrs Sex: Male : 1940 Arrival Date: 10/17/2018 Time: 05:02 Bed 2 Private MD: ED Physician Marshal Hill HPI: 10/17 05:35 This 78 yrs old Male presents to ER via EMS with complaints of Shortness Of meggan Breath. 05:35 The patient has shortness of breath at rest, with light activity, that woke him/her meggan from sleep. Onset: The symptoms/episode began/occurred 1 day(s) ago. Duration: The symptoms are continuous, and are steadily getting worse. The patient's shortness of breath is aggravated by exertion, light activity, supine position, talking, walking. Associated signs and symptoms: The patient has no apparent associated signs or symptoms. Severity of symptoms: At their worst the symptoms were moderate in the emergency department the symptoms have improved. The patient has not experienced similar symptoms in the past. Historical: - Allergies: 05:22 PENICILLINS; lp1 - Home Meds: 05:22 apixaban oral 5 mg oral 1 tab 2 times per day [Active]; atorvastatin 40 mg oral tab lp1 nightly [Active]; Plavix 75 mg Oral tab 1 tab once daily [Active]; docusate sodium 100 mg Oral cap 1 cap 2 times per day [Active]; furosemide 40 mg Oral tab 1 tab once daily [Active]; losartan 100 mg oral tab 1 tab once daily [Active]; melatonin 5 mg Oral tab nightly [Active]; pantoprazole 40 mg oral TbEC 1 tab once daily [Active]; polyethylene glycol 3350 17 gram/dose oral powd once daily [Active]; sotalol 80 mg oral tab 2 times per day [Active]; ascorbic acid (vitamin C) 500 mg tab 2 tab daily [Active]; Vitamin D3 5,000 unit Oral tab twice a day [Active]; dorzolamide-timolol 22.3-6.8 mg/mL ophthalmic drop 1 drop 2 times per day [Active]; memantine 5 mg Oral tab 1 tabs daily [Active]; - PMHx: 05:22 Atrial Fib; Diabetes - NIDDM; Hypertension; lp1 - PSHx: 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 - Social history:: Smoking status: Patient/guardian denies using tobacco, the patient reports quitting approximately 25 years ago. - Ebola Screening: : No symptoms or risks identified at this time. - Family history:: not pertinent. ROS: 05:35 Constitutional: Negative for fever, chills, and weight loss, Eyes: Negative for injury, meggan pain, redness, and discharge, ENT: Negative for injury, pain, and discharge, Neck: Negative for injury, pain, and swelling, Cardiovascular: Negative for chest pain, palpitations, and edema, Abdomen/GI: Negative for abdominal pain, nausea, vomiting, diarrhea, and constipation, Back: Negative for injury and pain, : Negative for injury, bleeding, discharge, and swelling, Skin: Negative for injury, rash, and discoloration, Neuro: Negative for headache, weakness, numbness, tingling, and seizure. 05:35 Respiratory: Positive for cough, dyspnea on exertion, orthopnea, shortness of breath, wheezing, expiratory. 05:35 MS/extremity: Positive for swelling, of the right leg and left leg. Exam: 05:35 Constitutional: This is a well developed, well nourished patient who is awake, alert, meggan and in no acute distress. Head/Face: Normocephalic, atraumatic. Eyes: Pupils equal round and reactive to light, extra-ocular motions intact. Lids and lashes normal. Conjunctiva and sclera are non-icteric and not injected. Cornea within normal limits. Periorbital areas with no swelling, redness, or edema. ENT: Nares patent. No nasal discharge, no septal abnormalities noted. Tympanic membranes are normal and external auditory canals are clear. Oropharynx with no redness, swelling, or masses, exudates, or evidence of obstruction, uvula midline. Mucous membranes moist. Neck: Trachea midline, no thyromegaly or masses palpated, and no cervical lymphadenopathy. Supple, full range of motion without nuchal rigidity, or vertebral point tenderness. No Meningismus. Chest/axilla: Normal chest wall appearance and motion. Nontender with no deformity. No lesions are appreciated. Cardiovascular: Regular rate and rhythm with a normal S1 and S2. No gallops, murmurs, or rubs. Normal PMI, no JVD. No pulse deficits. Respiratory: Lungs have equal breath sounds bilaterally, clear to auscultation and percussion. No rales, rhonchi or wheezes noted. No increased work of breathing, no retractions or nasal flaring. Abdomen/GI: Soft, non-tender, with normal bowel sounds. No distension or tympany. No guarding or rebound. No evidence of tenderness throughout. Back: No spinal tenderness. No costovertebral tenderness. Full range of motion. Male : Normal genitalia with no discharge or lesions. Skin: Warm, dry with normal turgor. Normal color with no rashes, no lesions, and no evidence of cellulitis. Neuro: Awake and alert, GCS 15, oriented to person, place, time, and situation. Cranial nerves II-XII grossly intact. Motor strength 5/5 in all extremities. Sensory grossly intact. Cerebellar exam normal. Normal gait. Psych: Awake, alert, with orientation to person, place and time. Behavior, mood, and affect are within normal limits. 05:35 Musculoskeletal/extremity: DVT Exam: No signs of deep vein thrombosis. no pain, no tenderness, negative Homans' sign noted on exam, no appreciated bluish discoloration, no erythema, no increased warmth, swelling, that is moderate, of the right leg, of the left leg. Vital Signs: 05:15 BP 254 / 96; Pulse 63; Resp 20; Pulse Ox 100% on 6% Nebulizer Mask; Weight 70.76 kg; lp1 Height 5 ft. 5 in. (165.10 cm); Pain 0/10; 05:33 BP 221 / 93; Pulse 59; Resp 17; Temp 98(O); Pulse Ox 98% on R/A; lp1 05:45 BP 210 / 95 RA (man/); lp1 05:50 BP 220 / 100 LA (man/); lp1 05:55 Pulse Ox 93% on R/A; lp1 06:00 BP 217 / 76; Pulse 57; Resp 21; Pulse Ox 97% on 2 lpm NC; lp1 06:35 BP 212 / 74; Pulse 57; Resp 20; Pulse Ox 98% on 2 lpm NC; lp1 07:07 BP 202 / 73; Pulse 55; Resp 14; Pulse Ox 99% on 2 lpm NC; lp1 08:29 BP 207 / 73; Pulse 62; Resp 22; Pulse Ox 98% on R/A; tw2 09:07 BP 193 / 91; Pulse 61; Resp 18; Pulse Ox 97% on R/A; tw2 05:15 Body Mass Index 25.96 (70.76 kg, 165.10 cm) lp1 MDM: 05:04 Patient medically screened. [facility] 05:38 Data reviewed: vital signs, nurses notes, lab test result(s), EKG, radiologic studies, meggan plain films. 10/17 05:05 Order name: Basic Metabolic Panel; Complete Time: 06:21 [facility] 10/17 05:05 Order name: CBC with Diff; Complete Time: 05:45 [facility] 10/17 05:05 Order name: LFT's; Complete Time: 06:21 [facility] 10/17 05:05 Order name: Magnesium; Complete Time: 06:21 [facility] 10/17 05:05 Order name: NT PRO-BNP; Complete Time: 06:21 [facility] 10/17 05:05 Order name: PT-INR; Complete Time: 06:21 [facility] 10/17 05:05 Order name: Troponin (emerg Dept Use Only); Complete Time: 06:21 [facility] 10/17 05:05 Order name: XRAY Chest (1 view) [facility] 10/17 05:05 Order name: TSH; Complete Time: 06:21 [facility] 10/17 05:05 Order name: Lipase; Complete Time: 06:21 [facility] 10/17 05:05 Order name: Urine Culture [facility] 10/17 06:38 Order name: Urine Dipstick--Ancillary (enter results) eb 10/17 08:48 Order name: Urine Dipstick-Ancillary EDMS 10/17 05:05 Order name: EKG; Complete Time: 05:06 [facility] 10/17 05:05 Order name: Cardiac monitoring; Complete Time: 05:16 [facility] 10/17 05:05 Order name: EKG - Nurse/Tech; Complete Time: 05:16 [facility] 10/17 05:05 Order name: IV Saline Lock; Complete Time: 05:16 [facility] 10/17 05:05 Order name: Labs collected and sent; Complete Time: 05:16 [facility] 10/17 05:05 Order name: O2 Per Protocol; Complete Time: 05:08 [facility] 10/17 05:05 Order name: O2 Sat Monitoring; Complete Time: 05:22 [facility] 10/17 05:05 Order name: Urine Dipstick-Ancillary (obtain specimen); Complete Time: 06:45 meggan Administered Medications: 05:30 Not Given (Duplicate Order): NS 0.9% 1000 ml IV at 75 ml/hr continuous meggan 06:00 Drug: Nitro-Bid Ointment 2 % 1 inches Route: Transdermal; Site: anterior chest wall; lp1 06:00 Drug: Lasix 40 mg Route: IVP; Site: right antecubital; lp1 06:37 Follow up: Urine output 150 ml; Response: No adverse reaction lp1 07:35 Drug: Losartan 100 mg Route: PO; tw2 09:27 Follow up: Response: No adverse reaction; Blood pressure is lowered tw2 09:26 Not Given (Duplicate Order): morphine 2 mg IVP once tw2 09:26 Not Given (Duplicate Order): Zofran 4 mg IVP once; over 2 minutes tw2 09:27 Not Given (Duplicate Order): morphine 2 mg IVP once tw2 Disposition: 10/17/18 05:45 Hospitalization ordered by Sandra Walton for Inpatient Admission. Preliminary diagnosis are Dyspnea, Essential (primary) hypertension, Type 2 diabetes mellitus, Unspecified combined systolic (congestive) and diastolic (congestive) heart failure, Anemia, unspecified, Pleural effusion in conditions classified elsewhere. - Bed requested for Telemetry/MedSurg (Inpatient). - Status is Inpatient Admission. tw2 - Condition is Fair. - Problem is new. - Symptoms have improved. UTI on Admission? No Signatures: Dispatcher [employer] EDMS Shabana Scruggs RN RN mw Woody, Diana, RN RN dw Anderson, Corey, MD MD cha Pena, Laura, RN RN lp1 Calli De Paz RN RN tw2 Corrections: (The following items were deleted from the chart) 05:46 05:45 Hospitalization Ordered by Sandra Walton MD for Inpatient Admission. Preliminary meggan diagnosis is Dyspnea; Essential (primary) hypertension; Type 2 diabetes mellitus; Unspecified combined systolic (congestive) and diastolic (congestive) heart failure. Bed requested for Telemetry/MedSurg (Inpatient). Status is Inpatient Admission. Condition is Fair. Problem is new. Symptoms have improved. UTI on Admission? No. meggan 06:09 05:46 10/17/2018 05:45 Hospitalization Ordered by Sandra Walton MD for Inpatient meggan Admission. Preliminary diagnosis is Dyspnea; Essential (primary) hypertension; Type 2 diabetes mellitus; Unspecified combined systolic (congestive) and diastolic (congestive) heart failure; Anemia, unspecified. Bed requested for Telemetry/MedSurg (Inpatient). Status is Inpatient Admission. Condition is Fair. Problem is new. Symptoms have improved. UTI on Admission? No. meggan 06:16 06:09 10/17/2018 05:45 Hospitalization Ordered by Sandra Walton MD for Inpatient mw Admission. Preliminary diagnosis is Dyspnea; Essential (primary) hypertension; Type 2 diabetes mellitus; Unspecified combined systolic (congestive) and diastolic (congestive) heart failure; Anemia, unspecified; Pleural effusion in conditions classified elsewhere. Bed requested for Telemetry/MedSurg (Inpatient). Status is Inpatient Admission. Condition is Fair. Problem is new. Symptoms have improved. UTI on Admission? No. meggan 09:23 06:16 10/17/2018 05:45 Hospitalization Ordered by Sandra Walton MD for Inpatient dw Admission. Preliminary diagnosis is Dyspnea; Essential (primary) hypertension; Type 2 diabetes mellitus; Unspecified combined systolic (congestive) and diastolic (congestive) heart failure; Anemia, unspecified; Pleural effusion in conditions classified elsewhere. Bed requested for [facility] ER HOLD. Status is Inpatient Admission. Condition is Fair. Problem is new. Symptoms have improved. UTI on Admission? No. mw 09:56 09:23 10/17/2018 05:45 Hospitalization Ordered by Sandra Walton MD for Inpatient tw2 Admission. Preliminary diagnosis is Dyspnea; Essential (primary) hypertension; Type 2 diabetes mellitus; Unspecified combined systolic (congestive) and diastolic (congestive) heart failure; Anemia, unspecified; Pleural effusion in conditions classified elsewhere. Bed requested for Telemetry/MedSurg (Inpatient). Status is Inpatient Admission. Condition is Fair. Problem is new. Symptoms have improved. UTI on Admission? No. dw 10:48 09:56 10/17/2018 05:45 Hospitalization Ordered by Sandra Walton MD for Inpatient tw2 Admission. Preliminary diagnosis is Dyspnea; Essential (primary) hypertension; Type 2 diabetes mellitus; Unspecified combined systolic (congestive) and diastolic (congestive) heart failure; Anemia, unspecified; Pleural effusion in conditions classified elsewhere. Bed requested for Telemetry/MedSurg (Inpatient). Status is Inpatient Admission. Condition is Fair. Problem is new. Symptoms have improved. UTI on Admission? No. tw2
[2018-10-17 05:48] LABS: Protime INR 1.83
[2018-10-17] MEDS ORDERED: FUROSEMIDE 40 MG/4 ML VIAL ONE (05:56)
[2018-10-17] MEDS ORDERED: NITROGLYCERIN 1 GM PKT TD ONE (05:56)
[2018-10-17 06:01] LABS: ALT/SGPT 31 U/L (12-78); AST/SGOT 36 U/L (15-37); Albumin 3.1 g/dL (3.4-5.0); Alkaline Phosphatase 110 U/L (45-117); BUN Blood Urea Nitrogen 19 mg/dL (7-18); Bicarbonate 24 mmol/L (21-32); Bilirubin Direct 0.3 mg/dL (0-0.2); Bilirubin Total 0.9 mg/dL (0.2-1.0); Glucose Level 99 mg/dL (74-106); Lipase 130 U/L (73-393); Magnesium 2.2 mg/dL (1.8-2.4); NT PRO-BNP 3612 pg/mL (<450); Potassium 3.9 mmol/L (3.5-5.1); Protein, Total 6.9 g/dL (6.4-8.2); Sodium Level 137 mmol/L (136-145); Troponin (Emerg Dept Use Only) < 0.02 ng/mL (0.0-0.045)
[2018-10-17] MEDS ORDERED: LOSARTAN POTASSIUM 50 MG TABLET ONE (07:33)
--- NOTE | 2018-10-17 07:33 | EKG ---
Test Date: 2018-10-17 Test Time: 05:02:45 Paramedic Instructor: ROME MEASUREMENT RESULTS: Intervals: Rate: 65 WA: 134 QRSD: 90 QT: 452 QTc: 470 Gilman: P: 71 WA: 134 QRS: 50 T: 71 INTERPRETIVE STATEMENTS: Normal sinus rhythm Normal ECG Compared to ECG 09/08/2018 08:41:59 Sinus bradycardia no longer present ST (T wave) deviation no longer present Prolonged QT interval no longer present Electronically Signed On 10-17-18 07:32:32 RETOUCHER by Abraham Segura
--- NOTE | 2018-10-17 08:41 | RAD REPORT ---
EXAM DESCRIPTION: [place] Single View10/17/2018 5:29 am CLINICAL HISTORY: Shortness of breath COMPARISON: August 2018 FINDINGS: Chronic left pleural thickening/left basilar atelectasis Mild right lung opacities may represent pulmonary edema or pneumonia Small right pleural effusion Heart is mildly enlarged. Postsurgical changes involve the chest
[2018-10-17 08:48] LABS: Urine Blood NEGATIVE (NEG); Urine Glucose NEGATIVE (NEG); Urine Protein 1+ (NEG)
[2018-10-17] MEDS ORDERED: HYDRALAZINE HCL 20 MG/ML VIAL IV PRN (09:38)
[2018-10-17] MEDS: FUROSEMIDE 40 MG/4 ML VIAL IV SCH ×2 (10:50→17:55)
[2018-10-17] MEDS ORDERED: ONDANSETRON 4 MG/2 ML VIAL IV PRN (10:50)
[2018-10-17] MEDS ORDERED: LISINOPRIL 10 MG TAB PO SCH (10:50)
[2018-10-17] MEDS: NITROGLYCERIN 1 GM PKT TD SCH ×2 (12:00→18:00)
[2018-10-17] MEDS ORDERED: PNEUMOCOCCAL VACCINE 0.5 ML IMVAC ONE (14:00)
[2018-10-17] MEDS ORDERED: POTASSIUM CL SA 10 MEQ TAB PO ONE (14:00)
[2018-10-17] MEDS: GUAIFENESIN/DM 5 ML UCUP PO SCH (17:56)
[2018-10-17] MEDS: LEVALBUTEROL 0.63 MG/3 ML NEB NEB PRN (18:40)
[2018-10-17] MEDS: SOTALOL HCL 80 MG TAB PO SCH (20:20)
[2018-10-17] MEDS: MELATONIN 5 MG TABLET PO SCH (20:20)
[2018-10-17] MEDS: DOCOSAHEXANOIC AC/EPA 1000 MG PO SCH (20:21)
[2018-10-17] MEDS: APIXABAN 5 MG TABLET PO SCH (20:21)
[2018-10-17] MEDS: ATORVASTATIN 40 MG TAB PO SCH (20:21)
[2018-10-17] MEDS ORDERED: DORZOLAMIDE HCL OPTH SCH (21:00)
[2018-10-17] MEDS ORDERED: [UNRECOGNIZED DRUG - OTHER] OPTH SCH (21:00)
[2018-10-17] MEDS ORDERED: TIMOLOL MALEAT OPTH SCH (21:00)
[2018-10-17] MEDS ORDERED: TIMOLOL MALEATE 0.5% OPTH 5 ML BTL OPTH SCH (21:00)
[2018-10-18] MEDS: GUAIFENESIN/DM 5 ML UCUP PO SCH ×4 (00:47→18:46)
[2018-10-18] MEDS: FUROSEMIDE 40 MG/4 ML VIAL IV SCH ×3 (00:47→18:46)
--- NOTE | 2018-10-18 02:24 | HP ---
Date of Admission: 10/17/[address]: Dr. Tam, Cardiology. Chief Complaint: Shortness of breath, chest pain, and lower extremity edema. Code Status: Full. History Of Present Illness: The patient is a 78-year-old male with past medical history of borderlin e diabetes, coronary artery disease, status post CABG, essential hypertension, and recent repair of h is aortic valve replacement with bovine valve, who was in his usual state of health until day of admi ssion when the patient had sudden onset of shortness of breath along with lower extremity edema. The patient also reported some chest tightness. Denies any nausea, vomiting, palpitations, or diaphores is. The patient's symptoms are constant, moderate, and progressively worsening. The patient otherwi se denies any fevers, chills, cough, or congestion. No ill contact. The patient came in to the ER f or further evaluation. His workup revealed BNP of 3612. Cardiac enzyme was negative. The patient's chest x-ray showed small right pleural effusion and pulmonary edema. The patient was therefore refe rred for admission. When seen in the ER, he was awake, alert, and in very minimal distress. The pat ient's blood pressure was elevated in the 200 systolic. The patient was given losartan and nitroglyc jazzy patch in the ER. Past Medical History: Coronary artery disease, status post CABG; hypertension; and diabetes mellitus type 2, diet controlled. Surgical History: CABG and aortic valve replacement, bovine TAVR. Allergies: PENICILLIN. Medications: Reviewed. Social History: The patient is , lives with his , independent in his activities of daily living. Denies any tobacco use, alcohol use, or illicit drug use. The patient does not use any assi stive ambulatory devices. Family History: No history of premature coronary artery disease in the family. Review of Systems: Ten-point system reviewed and negative except as per HPI. Physical Examination: Vital Signs: Temperature 98, heart rate 63, blood pressure 254/96, respirations 20, and O2 of 100% o n 2 L via nasal cannula. General: Awake, alert, oriented x3, in some mild distress, elderly male. HEENT: Normocephalic, atraumatic. PERRLA. EOMI. Moist mucous membranes. Oropharynx is clear. Po or dentition. Conjunctivae are anicteric. Neck: Supple. Trachea midline. CV: S1, S2. Irregularly irregular. Peripheral pulses are present. Systolic murmur 3/6. Respiratory: Diminished breath sounds at the bases. No crackles heard. No wheezing or stridor. Gastrointestinal: Abdomen is soft, nontender, nondistended. Positive bowel sounds. No guarding or rigidity. No hernias present. Extremities: No clubbing or cyanosis; 2+ pedal edema bilaterally. No calf tenderness. Neurologic: Cranial nerves 2 through 12 are intact grossly. No focal neurological deficit. Strengt h is 5/5 in bilateral upper and lower extremities. Speech is normal. Skin: No rashes. Normal skin turgor. Psychiatric: Mood is okay. Affect is full. Insight and judgment are good. Laboratory Data: Sodium 137, potassium 3.9, chloride 103, CO2 of 24, BUN 19, creatinine 1.1, glucose 99, calcium 8.7, and magnesium 2.2. AST 36, ALT 31. Troponin less than 0.02. BNP 2212, albumin 3. 1, lipase 130. TSH 2.4. INR 1.83. WBC 7, H and H 10.1 and 29.9, platelets 203, and neutrophils 72% . Chest x-ray shows pleural effusion, mild cardiomegaly, small right pleural effusion. Right lung o pacity may represent pulmonary edema or pneumonia. Chronic left pleural thickening. Left basilar at electasis. EKG shows normal sinus rhythm, rate of 65. Assessment And Plan: A 78-year-old male with; 1.Acute diastolic heart failure. The patient's previous EF was 51%. [facility]. We will monitor. Daily weights. Strict I's and O's. Fluid restrictio n. 2.Paroxysmal atrial fibrillation. We will continue apixaban and sotalol. 3.Normocytic, normochromic anemia. Monitor H and H. 4.Diabetes mellitus type 2, [id number], diet-controlled, with hyperglycemia. 5.Coronary artery disease, status post coronary artery bypass grafting, [place] artery, [place] heart, with angina. Troponin is negative. Continue to monitor. 6.Essential hypertension, uncontrolled. We will adjust home medications. We will use hydralazine p .r.n. 7.Status post bovine aortic valve replacement. 8.Mild pulmonary hypertension. 9.Glaucoma. Continue eye drops. 10.Dementia, Alzheimer's type, early onset, without behavioral disturbance. Plan: We will admit the patient to Med/Surge, place as inpatient. Resume home medications once shane nciled. Length of stay is greater than 2 midnights. Consult Cardiology. BEENA Voice ID: [id number]
[2018-10-18 04:23] LABS: Absolute Neutrophil 4.8 K/uL (1.8-8.0); Basophils % 0.8 % (0-1.3); Eosinophils % 5.6 % (0-4.4); Hematocrit 29.2 % (39.6-49.0); Lymphocytes % 13.6 % (15.3-44.8); MPV 7.9 fL (7.6-11.3); Monocytes % 14.1 % (3.3-12.3); RBC Red Blood Cell Count 3.16 M/uL (4.33-5.43)
[2018-10-18 04:43] LABS: Magnesium 2.2 mg/dL (1.8-2.4); Potassium 3.5 mmol/L (3.5-5.1)
[2018-10-18] MEDS ORDERED: POTASSIUM CL SA 10 MEQ TAB PO ONE (04:45)
[2018-10-18 06:34] VITALS: BMI 24.7
--- NOTE | 2018-10-18 08:40 | ECHO ---
HEIGHT: 5 ft 4 in WEIGHT: 143 lb 14.4 oz DATE OF STUDY: 10/17/[address]: Sandra Matthews MD 2-DIMENSIONAL: YES M.MODE: YES DOPPLER: YES COLOR FLOW: YES TDS: NO PORTABLE: NO DEFINITY: NO BUBBLE STUDY: NO DIAGNOSIS: CONGESTIVE HEART FAILURE, VALVE REPLACEMENT CARDIAC HISTORY: CATHERIZATION: YES SURGERY: YES PROSTHETIC VALVE: YES PACEMAKER: NO MEASUREMENTS (cm) DIASTOLIC (NORMALS) SYSTOLIC (NORMALS) IVSd 1.0 (0.6-1.2) LA Diam 4.4 (1.9-4.0) LVEF 68% LVIDd 4.8 (3.5-5.7) LVIDs 2.9 (2.0-3.5) %FS 38% LVPWd 1.1 (0.6-1.2) Ao Diam 2.9 (2.0-3.7) 2 DIMENSIONAL ASSESSMENT: RIGHT ATRIUM: NORMAL LEFT ATRIUM: DILATED RIGHT VENTRICLE: NORMAL LEFT VENTRICLE: NORMAL TRICUSPID VALVE: NORMAL MITRAL VALVE: MITRAL ANNULAR CALCIFICATION PULMONIC VALVE: NORMAL AORTIC VALVE: SCLEROSIS PERICARDIAL EFFUSION: NONE AORTIC ROOT: NORMAL LEFT VENTRICULAR WALL MOTION: NORMAL DOPPLER/COLOR FLOW: MILD MITRAL AND TRICUSPID REGURGITATION. MILD PULMONARY HYPERTENSION. ESTIMATED RIGHT VENTRICULAR SYSTOLIC PRESSURE 41 mmHg. NO AORTIC STENOSIS OR AORTIC REGURGITATION. COMMENTS: NORMAL LEFT VENTRICULAR EJECTION FRACTION. DILATED LEFT ATRIUM. MITRAL ANNULAR CALCIFICATION. AORTIC SCLEROSIS WITH NO AORTIC STENOSIS OR AORTIC REGURGITATION. MILD MITRAL AND TRICUSPID REGURGITATION. MILD PULMONARY HYPERTENSION. TECHNOLOGIST: Dio CAMPA
[2018-10-18] MEDS ORDERED: HOME MED 1 EA UNK (Memantine Hcl [Memantine Hcl] 5 MG) PO SCH (09:00)
[2018-10-18] MEDS ORDERED: HOME MED 1 EA UNK (Losartan Potassium [Cozaar] 100 MG) PO SCH (09:00)
[2018-10-18] MEDS: PANTOPRAZOLE 40MG TABLET PO SCH (10:02)
[2018-10-18] MEDS: LOSARTAN POTASSIUM 50 MG TABLET PO SCH (10:02)
[2018-10-18] MEDS: MEMANTINE HCL 10 MG TABLET PO SCH (10:02)
[2018-10-18] MEDS: SOTALOL HCL 80 MG TAB PO SCH ×2 (10:02→21:37)
[2018-10-18] MEDS: APIXABAN 5 MG TABLET PO SCH ×2 (10:02→21:37)
[2018-10-18] MEDS: DOCOSAHEXANOIC AC/EPA 1000 MG PO SCH ×2 (10:03→21:36)
[2018-10-18] MEDS: CLOPIDOGREL 75 MG TABLET PO SCH (10:03)
[2018-10-18] MEDS: DOCUSATE NA 100 MG CAP PO PRN (11:16)
[2018-10-18] MEDS: LEVALBUTEROL 0.63 MG/3 ML NEB NEB PRN (14:11)
--- NOTE | 2018-10-18 20:10 | PN ---
Date of Progress Note: 10/18/2018 History: The patient is seen and examined. Chart reviewed and case discussed with RN. Family at e bedside. Son was present. All questions answered. Medications: List reviewed. Physical Examination: Vital Signs: Temperature 98.1, heart rate 54, blood pressure 154/80, respirations 18, O2 97% on 1 L via nasal cannula. General: Awake, alert, oriented x3, not in acute distress. Elderly male. CV: S1, S2. Peripheral pulses present. Respiratory: Diminished breath sounds at the bases. Some crackles present. No wheezing or stridor. Gastrointestinal: Abdomen is soft, nontender, nondistended. Positive bowel sounds. Extremities: No clubbing or cyanosis. The patient does have pedal edema. Neurologic: Cranial nerves 2-12 intact grossly. No focal neurological deficit. Speech is normal. Laboratory Data: Sodium 141, potassium 3.5, chloride 102, CO2 31, BUN 27, creatinine 1.2, glucose 11 9, calcium 8.7, magnesium 2.2. WBC 7.2, H and H 10.1 and 29.2, platelets 196, neutrophils 65%. Urin e culture shows no growth. Echocardiogram shows EF 68%, mild pulmonary hypertension. Assessment: A 78-year-old male with: 1.Acute diastolic heart failure. EF is 68%. We will continue with congestive heart failure guideli cordell. Continue diuresis with Lasix. Strict I's and O's. Continue fluid restriction. Daily weights. 2.Paroxysmal atrial fibrillation. We will continue apixaban and sotalol. [facility] 3.Normocytic normochromic anemia. Monitor hemoglobin and hematocrit, transfuse as needed. 4.Diabetes mellitus type 2 [id number], diet-controlled with hyperglycemia. We will doris nue sliding scale insulin and Accu-Cheks. 5.Coronary artery disease status post coronary artery bypass graft, [place] artery, [place] heart with angina. Troponin negative. Acute coronary syndrome ruled out. 6.Essential hypertension, better controlled now. Blood pressure initially was in the 200s. We will continue using hydralazine p.r.n. 7.Status post aortic valve replacement, bovine. Echocardiogram does not show any abnormalities of t he valve. 8.Mild pulmonary hypertension. 9.Glaucoma. Continue home eye drops. 10.Dementia, Alzheimer's type, early onset, without behavioral disturbance, stable. Plan: Repeat chest x-ray in a.m. Likely discharge in the next 24 hours if continues to improve. /REBEKAH Voice ID: [id number] Report ID: [id number]
[2018-10-18] MEDS: MELATONIN 5 MG TABLET PO SCH (21:38)
[2018-10-18] MEDS: ATORVASTATIN 40 MG TAB PO SCH (21:38)
[2018-10-19] MEDS: GUAIFENESIN/DM 5 ML UCUP PO SCH ×2 (00:13→06:03)
[2018-10-19 03:22] VITALS: O2SAT 91
[2018-10-19] MEDS: FUROSEMIDE 40 MG/4 ML VIAL IV SCH (06:03)
[2018-10-19 06:29] LABS: Absolute Lymphocytes (CBC) 1.2 K/uL (0.7-4.9); Absolute Monocytes 0.9 K/uL (0.1-1.3); Absolute Neutrophil 4.5 K/uL (1.8-8.0); Basophils % 0.8 % (0-1.3); Eosinophils % 7.3 % (0-4.4); Hematocrit 28.7 % (39.6-49.0); Lymphocytes % 16.1 % (15.3-44.8); MPV 7.9 fL (7.6-11.3); RBC Red Blood Cell Count 3.05 M/uL (4.33-5.43)
[2018-10-19 06:41] LABS: Potassium 3.4 mmol/L (3.5-5.1)
[2018-10-19] MEDS ORDERED: POTASSIUM CL SA 10 MEQ TAB PO ONE (07:30)
--- NOTE | 2018-10-19 08:33 | RAD REPORT ---
EXAM DESCRIPTION: RAD - Chest Pa And Lat (2 Views) - 10/19/2018 6:59 am CLINICAL HISTORY: CHF Chest pain. COMPARISON: Chest Single View dated 10/17/2018; Chest Single View dated 09/06/2018; Chest Pa And Lat ( 2 Views) dated 02/03/2018 FINDINGS: Left inferior hemithorax pleural and parenchymal lung opacities are again noted appearing essentially unchanged to slightly worse. Trace right pleural fluid is seen. The lungs are emphysemato us. The heart is moderately enlarged in size with changes of a prior CABG noted.
[2018-10-19] MEDS: CLOPIDOGREL 75 MG TABLET PO SCH (09:16)
[2018-10-19] MEDS: PANTOPRAZOLE 40MG TABLET PO SCH (09:16)
[2018-10-19] MEDS: MEMANTINE HCL 10 MG TABLET PO SCH (09:17)
[2018-10-19] MEDS: SOTALOL HCL 80 MG TAB PO SCH (09:17)
[2018-10-19] MEDS: DOCOSAHEXANOIC AC/EPA 1000 MG PO SCH (09:18)
[2018-10-19] MEDS: LOSARTAN POTASSIUM 50 MG TABLET PO SCH (09:18)
[2018-10-19] MEDS: APIXABAN 5 MG TABLET PO SCH (09:18)
[2018-10-19] MEDS: DOCUSATE NA 100 MG CAP PO PRN (09:21)
[2018-10-19] MEDS ORDERED: PNEUMOCOCCAL VACCINE 0.5 ML IMVAC ONE (11:00)
[2018-10-19 14:11] VITALS: BP 148/68; TEMP 98
--- NOTE | 2018-10-20 00:38 | CON ---
Date of Consultation: 10/17/2018 Reason For Consultation: Congestive heart failure. History Of Present Illness: Mr. Lubin is a 78-year-old white male, he is very well known to us from previous office visits and admission. He has a history of atrial fibrillation, diabetes, hypertensio n, CABG, chronic systolic congestive heart failure status post TAVR recently, came in with shortness of breath and was found to have congestive heart failure on x-ray. His hemoglobin was 10.1. His INR is 1.83. His BNP was 3612. He was already feeling better after diuresis. He denied any chest pain or syncope. Allergies: HE IS ALLERGIC TO PENICILLIN. Review of Systems: Negative. Social History: Negative. Family History: Positive for heart disease. Medications: Include losartan with hydrochlorothiazide, sotalol and Xarelto. Physical Examination: Vital Signs: Stable. He was afebrile. He was in a sinus rhythm. HEENT: Negative. Neck: Supple without any bruit, lymphadenopathy, JVD, or thyromegaly. Chest: Positive for rales at both bases. Cardiac: Revealed irregular rhythm and rate without any murmurs, gallops, or rubs. Abdomen: Benign. Extremities: Revealed 1+ edema. Diagnostic Data: As stated earlier. Impression And Plan: 1.Acute on chronic exacerbation of congestive heart failure that is systolic. 2.Atrial fibrillation that has resolved. 3.Diabetes. 4.Hypertension. 5.Coronary artery disease, status post CABG. 6.Status post transcatheter aortic valve replacement. I would continue his present regimen, but I think he should be on losartan and Lasix instead of the h ydrochlorothiazide. We need to continue the sotalol and Xarelto. Another echocardiogram is pending. We will see what that shows prior to making final decisions, but he can certainly go home whenever it is okay with Dr. John and I will see him in the near future. JENN/REBEKAH Voice ID: [id number] Report ID: [id number]
--- NOTE | 2018-10-20 03:40 | DS ---
Date of Discharge: 10/19/2018 Preventative Maintenance Technician: Dr. Tam, with Cardiology. Admitting Diagnoses: 1.Acute diastolic heart failure. 2.Paroxysmal atrial fibrillation. 3.Normocytic, normochromic anemia. 4.Diabetes mellitus type 2, non-insulin requiring, with hyperglycemia. 5.Coronary artery disease, status post coronary artery bypass grafting, [place] artery and [place] hea rt, with angina. 6.Essential hypertension, uncontrolled. 7.Status post aortic valve replacement, bovine. 8.Mild pulmonary hypertension. 9.Glaucoma. 10.Dementia, Alzheimer's type, early onset, without behavioral disturbance. Hospital Course: The patient is a 78-year-old male, history of borderline diabetes, heart disease, s tatus post CABG, hypertension, recent aortic valve replacement, TAVR with bovine valve. Comes in wit h shortness of breath, chest pain, and lower extremity edema. The patient had elevated BNP. Chest x -ray showed pulmonary edema. The patient was requiring supplemental oxygen. The patient was started on diuretics and had a good response. Echocardiogram was repeated; and the patient's drag car racer, Dr. Tam, was consulted. The patient overall did well over the course of the hospital stay. He w as able to ambulate without difficulty. He was weaned off oxygen. His shortness of breath improved. He was educated on CHF restrictions including fluid restriction and sodium restriction. Also educa odalys on taking an extra pill after daily weights with weight gain of more than 3 pounds. His echocard iogram showed EF of 68%. There were no abnormalities with the valve. He was found to have some mild pulmonary hypertension. The patient's repeat chest x-ray did not show significant improvement; issa kelby, clinically, he was significantly improved. He was found to have some emphysema and responded we ll to breathing treatments. The patient's sputum culture and urine culture were negative to date. T he patient was then cleared for discharge. He was sent home in a stable condition. Activity: As tolerated. Medications: As per medication reconciliation list. Followup: Follow up with primary care physician in 2 to 3 days. Follow up with drag car racer, Dr. Gabe sibley, in 2 weeks. Return to ER for worsening condition. Diet: Low sodium, 1500 mL fluid restriction. Physical Examination: General: Awake, alert, oriented x3. Elderly male, no acute distress. CV: S1, S2. Irregularly irregular. Respiratory: Moving air well bilaterally. Breath sounds have improved. Gastrointestinal: Abdomen is soft, nontender, nondistended. Positive bowel sounds. Extremities: No clubbing or cyanosis. Trace pedal edema. Neurologic: Nonfocal. Total time spent discharging the patient was 33 minutes. /REBEKAH Voice ID: [id number] Report ID: [id number]
== END 2018-10-19 11:55 | disposition home health service (06) | DRG 293 ==
LOC: ER 05:01 → ERHOLD 05:45 → 4TH 10:30
PROVIDERS: ADMIT Internal Medicine; ATTEND Family Medicine
DX: I50.31 Acute diastolic (congestive) heart failure (principal); I25.10 Atherosclerotic heart disease of native coronary artery without angina pectoris; I10 Essential (primary) hypertension; E11.9 Type 2 diabetes mellitus without complications; I48.0 Paroxysmal atrial fibrillation; D64.9 Anemia, unspecified; I27.20 Pulmonary hypertension, unspecified; H40.9 Unspecified glaucoma; G30.9 Alzheimer's disease, unspecified; F02.80 Dementia in other diseases classified elsewhere, unspecified severity, without behavioral disturbance, psychotic disturbance, mood disturbance, and anxiety; Z95.1 Presence of aortocoronary bypass graft; Z23 Encounter for immunization
CPT/HCPCS: 36415; 71045; 71046; 80048; 80076; 81003; 83690; 83735; 83880; 84443; 84484; 85025; 85610; 87070; 87086; 87088; 87205; 90670; 93005; 93306; 94640; 96374; 99285; G0009; J1940; J7030

== ENCOUNTER 2019-03-09 05:51 | Emergency (ER) | payer OTHER ==
--- OUTSIDE RECORDS SUMMARY | 2019-03-09 05:55 | XMS REPORT | Clinical Summary ---
:1940 Author Organization [facility] Address [address] [place] [address] Care Team Providers Name Role Phone Philipp [...] mg/mL ophthalmic 2 (two) times solution daily. atorvastatin Take 1 tablet 30 tablet 0 [...] (two) times daily as needed for Constipation. dorzolamide 0 01/26/2018 Discontinued (TRUSOPT) 2 % [...] by mouth 8 MedicationIndication daily. s: OCUVITE sotalol AF (BETAPACE Take 1 tablet 60 tablet 1 09/28/2018 AF) 80 MG tablet (80 mg total) 9 by mouth 2 (two) times daily for 30 days. apixaban (ELIQUIS) 5 Take 1 tablet 60 tablet 1 09/28/2018 mg Tab tablet (5 mg total) 9 by mouth 2 (two) times daily for 30 days. losartan (COZAAR) Take 1 tablet 30 tablet 0 09/29/2018 100 MG tablet (100 mg total) 9 by mouth daily for 30 days. melatonin 5 mg Tab Take 1 tablet 30 tablet 0 09/28/2018 tablet (5 mg total) 9 by mouth every night as needed for up to 30 days. mINOCYCLine Take 1 capsule 8 capsule 0 09/28/2018 (MINOCIN,DYNACIN) (100 mg total) 8 100 MG capsule by mouth every 12 (twelve) hours for 4 days. pantoprazole Take 1 tablet 30 tablet 1 09/29/2018 (PROTONIX) 40 MG (40 mg total) 9 tablet by mouth daily for 30 days. polyethylene glycol Take 17 g by 510 g 0 09/29/2018 (GLYCOLAX) 17 gram mouth daily 9 packet for 30 days. furosemide (LASIX) Take 1 tablet 30 tablet 1 09/29/2018 40 MG tablet (40 mg total) 9 by mouth daily for 30 days. Active Problems Problem Noted Date S/P TAVR (transcatheter aortic valve replacement) 09/30/2018 Anemia 09/22/2018 Hyponatremia 09/22/2018 Chest pain 09/20/2018 Lower GI bleed 09/18/2018 S/P CABG (coronary artery bypass graft) 07/14/2015 Fluid overload 07/14/2015 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 07/14/2015 CAD (coronary artery disease) 06/24/2015 Coronary artery disease involving coronary bypass graft of [place] heart 2014 without angina pectoris Peripheral vascular disease Hyperlipidemia Hypertension Aortic stenosis Atrial fibrillation Thyroid disease Carotid artery occlusion Ischemic cardiomyopathy Encounters Date Type Specialty Care Team Description 09/25/2018 Surgery Jhonathan Sharma TAVR / [facility] - MD Rakesh PROC ONLY 09/25/2018 Anesthesia Event Eduardo Thomas MD 09/24/2018 Travel 09/22/2018 Surgery Jhonathan Sharma L CATH & CORONARY MD Rakesh ANGIOS 09/20/2018 Anesthesia Event Gastroenterology Kana Reyna CRNA 09/18/2018 - Hospital Encounter Cardiology [place], Lower GI bleed ( Primary Dx); 09/28/2018 MD Kip Atrial fibrillation, unspecified type (HCC); Carleen Martin MD Coronary artery disease involving coronary bypass graft of [place] heart without angina pectoris; Ivan, [place] Hyperlipidemia, unspecified hyperlipidemia type; D Essential hypertension; Daniel, Ischemic cardiomyopathy; MD Melissa S/P CABG (coronary artery bypass graft); 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 ( HCC); Aortic valve stenosis, etiology of cardiac valve disease unspecified; Hypervolemia, unspecified hypervolemia type 09/18/2018 Orders Only Internal Medicine Kip Hall MD after 03/08/2018 Family History Medical History Relation Name Comments [...] Taken Blood Pressure 150/67 09/28/2018 11:20 AM [employer] Pulse 57 09/28/2018 11:20 AM [employer] Temperature 37.1 C (98.8 F) 09/28/2018 11:20 AM [employer] Respiratory Rate 17 09/28/2018 11:20 AM [employer] Oxygen Saturation 97% 09/28/2018 11:20 AM [employer] Inhaled Oxygen Concentration 21% 09/27/2018 8:58 PM [employer] Weight 68.6 kg (151 lb 3.2 oz) 09/26/2018 9:10 AM [employer] Height 157.5 cm (5' 2") 09/24/2018 4:00 PM [employer] Body Mass Index 27.65 09/26/2018 9:10 AM [employer] Plan of Treatment Not on file Implants Implanted Type Area Needle Bar Molder Device Shelf Model / Identifier Expiration Serial / Date Lot Patch Periph Vascu-Grd 0.8x8cm [id number] - [id number] Tissue N/A: [employer] 05/03/2023 [id number] / Implanted: Qty: 1 on 09/25/2018 by Jhonathan Sharma MD Graft/Subs Aorta TECH:SURG INNOV / titute [id number] Valve Heart Malcolm 3 23mm [id number] - [id number] Valves N/A: [employer] 05/07/2020 [id number] / Implanted: Qty: 1 on 09/25/2018 by Jhonathan Sharma MD Aorta [id number] / Procedures Procedure Name Priority Date/Time Associated Diagnosis Comments VASCULAR DIAGRAM 11/10/2018 8:32 -SCAN AM [employer] CARDIAC CATH REPORT - 10/16/2018 9:00 SCAN AM [employer] RHYTHM STRIP - SCAN 10/16/2018 9:00 AM [employer] POCT-GLUCOSE METER Routine 09/28/2018 11:16 Results for AM [employer] this procedure are in the results section. POCT-GLUCOSE METER Routine 09/28/2018 9:07 Results for AM [employer] this procedure are in the results section. CBC W/PLT COUNT & Routine 09/28/2018 3:41 Results for AUTO DIFFERENTIAL AM [employer] this procedure are in the results section. MAGNESIUM Routine 09/28/2018 3:41 Results for AM [employer] this procedure are in the results section. BASIC METABOLIC PANEL Routine 09/28/2018 3:41 Results for (7) AM [employer] this procedure are in the results section. CBC W/PLT COUNT & Routine 09/28/2018 3:41 Results for AUTO DIFFERENTIAL AM [employer] this procedure are in the results section. ECHOCARDIOGRAM REPORT 09/27/2018 2:50 - SCAN PM [employer] 2D ECHO W/ DOPPLER NANCY 09/27/2018 12:00 Results for (CW/PW/COLOR) PM [employer] this procedure are in the results section. CBC W/PLT COUNT & Routine 09/27/2018 3:04 Results for AUTO DIFFERENTIAL AM [employer] this procedure are in the results section. MAGNESIUM Routine 09/27/2018 3:04 Results for AM [employer] this procedure are in the results section. BASIC METABOLIC PANEL Routine 09/27/2018 3:04 Results for (7) AM [employer] this procedure are in the results section. CBC W/PLT COUNT & Routine 09/27/2018 3:04 Results for AUTO DIFFERENTIAL AM [employer] this procedure are in the results section. TRANSFUSION SERVICE 09/26/2018 5:53 REPORT - SCAN PM [employer] MAGNESIUM NANCY 09/26/2018 9:23 Results for AM [employer] this procedure are in the results section. BASIC METABOLIC PANEL NANCY 09/26/2018 9:23 Results for (7) AM [employer] this procedure are in the results section. CBC W/PLT COUNT & STAT 09/26/2018 3:06 Results for AUTO DIFFERENTIAL AM [employer] this procedure are in the results section. CBC W/PLT COUNT & STAT 09/26/2018 3:06 Results for AUTO DIFFERENTIAL AM [employer] this procedure are in the results section. ECG 12-LEAD Routine 09/25/2018 11:59 Results for PM [employer] this procedure are in the results section. PREPARE LEUKO-REDUCED Routine 09/25/2018 6:40 Results for RBC PM [employer] this procedure are in the results section. PREPARE LEUKO-REDUCED STAT 09/25/2018 6:22 Results for RBC PM [employer] this procedure are in the results section. TISSUE EXAM AP Routine 09/25/2018 6:08 Results for PM [employer] this procedure are in the results section. POCT-ACT Routine 09/25/2018 5:40 Results for PM [employer] this procedure are in the results section. POCT-ACT Routine 09/25/2018 5:05 Results for PM [employer] this procedure are in the results section. HGB/HCT (H&H) - STAT STAT 09/25/2018 4:58 Results for LAB PM [employer] this procedure are in the results section. GLUCOSE-STAT LAB STAT 09/25/2018 4:58 Results for PM [employer] this procedure are in the results section. POTASSIUM-STAT LAB STAT 09/25/2018 4:58 Results for PM [employer] this procedure are in the results section. SODIUM NA-STAT LAB STAT 09/25/2018 4:58 Results for PM [employer] this procedure are in the results section. BLOOD GAS, ARTERIAL STAT 09/25/2018 4:58 Results for PM [employer] this procedure are in the results section. RRL CRITICAL LABS STAT 09/25/2018 4:58 Results for (ABG,NA,K,H&H,GLUCOSE PM [employer] this procedure ) are in the results section. POCT-ACT Routine 09/25/2018 4:06 Results for PM [employer] this procedure are in the results section. TAVR / JANE MCR - 09/25/2018 2:20 Atherosclerosis of IP PROC ONLY PM [employer] [place] coronary artery of [place] heart, angina presence unspecified Case Notes 2435 CV ANESTHESIA / LUKASZ. 1230mGy CONT WAVE PULSED Routine 09/25/2018 12:01 DOPPLER PM [employer] COLOR-FLOW MAPPING Routine 09/25/2018 12:01 PM [employer] TYPE AND SCREEN, Routine 09/25/2018 6:12 Results for this AUTOMATED AM [employer] procedure are in the results section. BASIC METABOLIC Routine 09/25/2018 6:12 Results for this PANEL (7) AM [employer] procedure are in the results section. CBC (HEMOGRAM ONLY) Routine 09/25/2018 6:12 Results for this AM [employer] procedure are in the results section. URINALYSIS W/ REFLEX Routine 09/24/2018 12:43 Results for this URINE CULTURE PM [employer] procedure are in the results section. BASIC METABOLIC Routine 09/24/2018 5:34 Results for this PANEL (7) AM [employer] procedure are in the results section. CBC (HEMOGRAM ONLY) Routine 09/24/2018 5:34 Results for this AM [employer] procedure are in the results section. POCT-GLUCOSE METER Routine 09/23/2018 6:04 Results for this PM [employer] procedure are in the results section. POCT-GLUCOSE METER Routine 09/23/2018 1:04 Results for this PM [employer] procedure are in the results section. US CHEST NANCY 09/23/2018 11:17 Results for this AM [employer] procedure are in the results section. CBC W/PLT COUNT & STAT 09/23/2018 4:35 Results for this AUTO DIFFERENTIAL AM [employer] procedure are in the results section. MAGNESIUM Routine 09/23/2018 4:35 Results for this AM [employer] procedure are in the results section. CBC (HEMOGRAM ONLY) Routine 09/23/2018 4:35 Results for this AM [employer] procedure are in the results section. BASIC METABOLIC Routine 09/23/2018 4:35 Results for this PANEL (7) AM [employer] procedure are in the results section. APTT STAT 09/23/2018 4:35 Results for this AM [employer] procedure are in the results section. PROTHROMBIN TIME/INR STAT 09/23/2018 4:35 Results for this AM [employer] procedure are in the results section. CBC W/PLT COUNT & STAT 09/23/2018 4:35 Results for this AUTO DIFFERENTIAL AM [employer] procedure are in the results section. MAGNESIUM STAT 09/23/2018 4:35 Results for this AM [employer] procedure are in the results section. BASIC METABOLIC STAT 09/23/2018 4:35 Results for this PANEL (7) AM [employer] procedure are in the results section. POCT-GLUCOSE METER Routine 09/22/2018 9:32 Results for this PM [employer] procedure are in the results section. POCT-GLUCOSE METER Routine 09/22/2018 5:22 Results for this PM [employer] procedure are in the results section. MAGNESIUM STAT 09/22/2018 4:51 Results for this PM [employer] procedure are in the results section. BASIC METABOLIC STAT 09/22/2018 4:51 Results for this PANEL (7) PM [employer] procedure are in the results section. POCT-GLUCOSE METER Routine 09/22/2018 12:56 Results for this PM [employer] procedure are in the results section. L CATH & CORONARY 09/22/2018 7:30 Atherosclerosis of ANGIOS AM [employer] [place] coronary artery, angina presence unspecified, unspecified whether [place] or transplanted heart Case Notes (1) CASE 2435 POCT-GLUCOSE METER Routine 09/21/2018 9:35 PM [employer] POCT-GLUCOSE METER Routine 09/21/2018 5:[address] [address] [address]/CTA ABDOMEN & PELVIS Routine 09/21/2018 12:[address] [employer] [address]/CTA CHEST Routine 09/21/2018 12:03 PM [employer] ARTERIAL DOPPLER LEGS NANCY 09/21/2018 8:51 AM [employer] Results for this BILATERAL procedure are in the results section. CAROTID DOPPLER BILATERAL NANCY 09/21/2018 8:51 AM [employer] BASIC METABOLIC PANEL (7) Routine 09/21/2018 5:37 AM [employer] POCT-GLUCOSE METER Routine 09/20/2018 9:22 PM [employer] ECG 12-LEAD NANCY 09/20/2018 9:16 PM [employer] XR CHEST 1 VIEW STAT 09/20/2018 8:19 PM [employer] Results for this PORTABLE/BEDSIDE procedure are in the results section. POCT-GLUCOSE METER Routine 09/20/2018 4:47 PM [employer] POCT-GLUCOSE METER Routine 09/20/2018 1:50 PM [employer] POCT-GLUCOSE METER Routine 09/20/2018 8:18 AM [employer] BASIC METABOLIC PANEL (7) Routine 09/20/2018 4:42 AM [employer] POCT-GLUCOSE METER Routine 09/19/2018 10:51 PM [employer] POCT-GLUCOSE METER Routine 09/19/2018 6:02 PM [employer] ECHOCARDIOGRAM REPORT - SCAN 09/19/2018 5:50 PM [employer] ECHO W CONTRAST & DOPPLER NANCY 09/19/2018 2:01 PM [employer] HEMOGLOBIN A1C Routine 09/19/2018 9:45 AM [employer] POCT-GLUCOSE METER Routine 09/19/2018 8:20 AM [employer] CBC W/PLT COUNT & AUTO Routine 09/19/2018 6:01 AM [employer] Results for this DIFFERENTIAL procedure are in the results section. TROPONIN I Routine 09/19/2018 6:01 AM [employer] CBC W/PLT COUNT & AUTO Routine 09/19/2018 6:01 AM [employer] Results for this DIFFERENTIAL procedure are in the results section. BASIC METABOLIC PANEL (7) Routine 09/19/2018 6:01 AM [employer] TROPONIN I Routine 09/18/2018 11:53 PM [employer] CBC W/PLT COUNT & AUTO Routine 09/18/2018 6:15 PM [employer] Results for this DIFFERENTIAL procedure are in the results section. B-TYPE NATRIURETIC FACTOR Routine 09/18/2018 6:15 PM [employer] Results for this (BNP) procedure are in the results section. COMPREHENSIVE METABOLIC Routine 09/18/2018 6:15 PM [employer] Results for this PANEL procedure are in the results section. CBC W/PLT COUNT & AUTO Routine 09/18/2018 6:15 PM [employer] Results for this DIFFERENTIAL procedure are in the results section. POCT-GLUCOSE METER Routine 09/18/2018 5:10 PM [employer] after 03/08/2018 Results VASCULAR DIAGRAM -SCAN (11/10/2018 8:32 AM [employer]) Narrative Performed At CARDIAC CATH REPORT - SCAN (10/16/2018 9:00 AM [employer]) Narrative Performed At RHYTHM STRIP - SCAN (10/16/2018 9:00 AM [employer]) Narrative Performed At POC-Glucose meter (09/28/2018 11:16 AM [employer])Only the most recent of17 resultswithin the time period is included. POC-Glucose Meter 326 (H)Comment: TESTED AT 70 - 110 mg/dL [facility] [address] [facility] [place] [address] Specimen Blood Performing Organization Address City/State/Zipcode Phone Number [place] [phone] [place] [address] [phone] CENTER CBC with platelet count + automated diff (09/28/2018 3:41 AM [employer])Only the most recent of6 resultswithin the time period is included. WBC 9.4 3.5 - 10.5 K/L [facility] RBC 2.67 (L) 4.63 - 6.08 M/L [facility] Hemoglobin 8.4 (L) 13.7 - 17.5 GM/DL [facility] Hematocrit 25.7 (L) 40.1 - 51.0 % [facility] MCV 96.3 (H) 79.0 - 92.2 fL [facility] MCH 31.5 25.7 - 32.2 pg [facility] MCHC 32.7 32.3 - 36.5 GM/DL [facility] RDW 12.4 11.6 - 14.4 % [facility] Platelets 213 150 - 450 K/CU MM [facility] MPV 9.9 9.4 - 12.4 fL [facility] nRBC 0 0 - 0 /100 WBC [facility] % Neutros 70 % [facility] % Lymphs 12 % [facility] % Monos 12 % [facility] % Eos 5 % [facility] % Baso 1 % [facility] # Neutros 6.50 (H) 1.78 - 5.38 K/L [facility] # Lymphs 1.10 (L) 1.32 - 3.57 K/L [facility] # Monos 1.16 (H) 0.30 - 0.82 K/L [facility] # Eos 0.49 0.04 - 0.54 K/L [facility] # Baso 0.05 0.01 - 0.08 K/L [facility] Immature Granulocytes-Relative 1 0 - 1 % [facility] Specimen Blood Performing Organization Address City/State/Zipcode Phone Number [facility] [address] [place] [phone] CENTER Magnesium (09/28/2018 3:41 AM [employer])Only the most recent of6 resultswithin the time period is included. Magnesium 1.6 1.6 - 2.6 mg/dL [facility] Specimen Blood Performing Organization Address City/[facility]/Zipcode Phone Number [address] [address] [phone] [place] Basic Metabolic Panel (09/28/2018 3:41 AM [employer])Only the most recent of11 resultswithin the time period is included. Sodium 138 136 - 145 meq/L [facility] Potassium 3.6 3.5 - 5.1 meq/L [facility] Chloride 103 98 - 107 meq/L [facility] CO2 27 22 - 29 meq/L [facility] BUN 30 (H) 7 - 21 mg/dL [facility] Creatinine 1.04 0.57 - 1.25 mg/dL [facility] Glucose 115 (H) 70 - 105 mg/dL [facility] Calcium 8.8 8.4 - 10.2 mg/dL [facility] EGFR 69Comment: ESTIMATED GFR IS mL/min/1.[address] [facility] BCM NOT ACCURATE [facility] CLEARANCE IN PREDICTING GLOMERULAR FILTRATION RATE. ESTIMATED GFR IS NOT APPLICABLE FOR DIALYSIS PATIENTS. Specimen Blood Performing Organization Address City/State/Zipcode Phone Number [facility] [address] [place] [address] CENTER ECHOCARDIOGRAM REPORT - SCAN (09/27/2018 2:50 PM [employer]) Narrative Performed At 2D Echo W/Doppler(CW/PW/Color) (09/27/2018 12:00 PM [employer]) Ejection Fraction [facility] Specimen Narrative Performed At Transthoracic Echocardiography Report (TTE) [facility] Demographics Patient NameALVA LUBIN Date of Study09/27/2018 SR. Gender Male Visit [id number] Race [id number] Number Date of 1940 ReferringHernan Baron Physician Age 78 year(s) SonographYonathan Cifuentes [facility] Set Illustrator Ju BenitezInterpreting Physician ALANNA Chavez Procedure Type of Study TTE procedure:2DECHO W DOPPLER(CW/PW/COLOR) Indications:S/P TAVR. Clinical History ,A-FIB,CAD,HLD,HTN,ICMP,PVD,ACB X 3 15,HYPOTHYROID Height: 62 inches Weight: 70.76 kg (156 [...] Diastolic: 1.1 cmLV FS: 33 % LVEDV Rick's:127.15 ml LVESV [...] External Ris In - 09/27/2018 2:08 PM [employer] Transthoracic Echocardiography Report (TTE) Demographics Patient Name ALVA LUBIN Date of Study 09/27/2018 SR. Gender Male Visit Number [id number] Race Room Number C633 Number Date of 1940 Referring Hernan Baron Physician Age 78 year(s) Coil Tester Bryce Cifuentes [facility] Set Illustrator Ju Benitez Interpreting Alexander Tamez Physician Procedure Type of Study TTE procedure:2DECHO W DOPPLER(CW/PW/COLOR) Indications:S/P TAVR. Clinical History ,A-FIB,CAD,HLD,HTN,ICMP,PVD,ACB X 3 9-16-15,HYPOTHYROID Height: 62 inches Weight: 70.76 kg (156 [...] TR Gradient: 30.04 mmHg Performing Organization Address [facility] Phone Number [facility] CPACS TRANSFUSION SERVICE REPORT - SCAN (09/26/2018 5:53 PM [employer]) Narrative Performed At ECG 12 lead (09/25/2018 11:59 PM [employer])Only the most recent of2 resultswithin the time period is included. Specimen Narrative Performed At Ventricular Rate 59 BPM GE MUSE Atrial Rate 59 BPM P-R Interval 138 ms QRS Duration 96 ms Q-T Interval 476 ms QTC Calculation(Bazett) 471 ms P Rowland 52 degrees R Rowland 23 degrees T Rowland 244 degrees Sinus bradycardiawith sinus arrhythmia Mild ST elevation in aVR + ST depression inferolateral leads consider subendocardial ischemia Prolonged QT Abnormal ECG When compared with ECG of 20-SEP-2018 21:16, Sinus arrhythmia now seen Confirmed by MD YANET, FAISAL ([id number]) on 09/26/2018 6:34:11 AM Procedure Note Interface, External Ris In - 09/26/2018 6:34 AM [employer] Ventricular Rate 59 BPM Atrial Rate 59 BPM P-R Interval 138 ms QRS Duration 96 ms Q-T Interval 476 ms QTC Calculation(Bazett) 471 ms P Rowland 52 degrees R Rowland 23 degrees T Rowland 244 degrees Sinus bradycardia with sinus arrhythmia Mild ST elevation in aVR + ST depression inferolateral leads consider subendocardial ischemia Prolonged QT Abnormal ECG When compared with ECG of 20-SEP-2018 21:16, Sinus arrhythmia now seen Confirmed by MD HOLT YOCHAI ([id number]) on 09/26/2018 6:34:11 AM Performing Organization Address [facility] Phone Number [place] MUSE Prepare Leuko-Red RBC (09/25/2018 6:40 PM [employer])Only the most recent of2 resultswithin the time period is included. CROSSMATCH COMPATIBLE SAFETRACE TX Unit ABO O Pos SAFETRACE TX UNIT NUMBER [id number] SAFETRACE TX Status READY SAFETRACE TX Blood Bank Product RED BLOOD CELLS SAFETRACE TX PRODUCT CODE [id number] SAFETRACE TX CROSSMATCH COMPATIBLE SAFETRACE TX Unit ABO O Pos SAFETRACE TX UNIT NUMBER [id number] SAFETRACE TX Status READY SAFETRACE TX Blood Bank Product RED BLOOD CELLS SAFETRACE TX PRODUCT CODE [id number] SAFETRACE TX Specimen Other Performing Organization Address City/[facility] Phone Number SAFETRACE TX Tissue Exam (09/25/2018 6:08 PM [employer]) Case Report Surgical Pathology Report Case: [id number] [facility] Authorizing Provider:Jhonathan Sharma MD Collected: 09/25/2018 1808 [facility] Ordering Location: [address] Received: 09/26/2018926 Service Pathologist: Haris Jeter MD Specimen:Plaque, arterial plaque DIAGNOSIS ARTERY, LEFT FEMORAL, ENDARTERECTOMY: [facility] CALCIFIC ATHEROSCLEROTIC PLAQUE [facility] Signing Pathologist Direct Phone Line: [phone] CPT Code(s) 21162; 88247 [facility] CLINICAL HISTORY Left femoral artery plaque [facility] SPECIMEN SOURCE Arterial plaque [facility] GROSS DESCRIPTION The specimen is received in [facility] saline labeled with the [facility] patient's information labeled "arterial plaque" and consists of previously opened calcified segment of tissue measuring 2.5 cm in length x 0.5 cm in circumference. Software Product Specialist sections are submitted A1 for decalcification. CG/pl INTRAOPERATIVE CONSULTATION [facility] MICROSCOPIC DESCRIPTION Performed [facility] Specimen Tissue Performing Organization Address City/[facility] Cent[facility] Phone Number [address] [address] CENTER POC ACTIVATED CLOTTING TIME (09/25/2018 5:40 PM [employer])Only the most recent of3 resultswithin the time period is included. Activated Clotting Time 131Comment: TESTED AT sec [facility] [address] [facility] [place] [address] Specimen Blood Performing Organization Address City/[facility]/Zipcode Phone Number [facility] [address] [address] [phone] [place] Potassium-Stat Lab (09/25/2018 4:58 PM [employer]) Potassium 4.1 3.6 - 5.5 meq/L [facility] Specimen Blood, Arterial Performing Organization Address [facility] Phone Number [address] [address] [address] [phone] [place] Sodium Na-Stat Lab (09/25/2018 4:58 PM [employer]) Sodium 132 (L) 135 - 148 meq/L [facility] Specimen Blood, Arterial Performing Organization Address [facility] Phone Number [address] [address] [place] Glucose-Stat Lab (09/25/2018 4:58 PM [employer]) Glucose 104 70 - 110 mg/dL [facility] Specimen Blood, Arterial Performing Organization Address [facility] Phone Number [address] [address] [place] HGB/HCT (H&H)-Stat Lab (09/25/2018 4:58 PM [employer]) Hemoglobin 11.2 (L) 13.0 - 16.8 g/dL [facility] Hematocrit 33.0 (L) 40.0 - 50.0 % [facility] Specimen Blood, Arterial Performing Organization Address [facility] Phone Number [address] [address] [phone] [place] Blood gas, arterial (09/25/2018 4:58 PM [employer]) pH, Arterial 7.36 7.35 - 7.45 [facility] pCO2, Arterial 49 (H) 35 - 45 mmHg [facility] pO2, Arterial 119 (H) 80 - 90 mmHg [facility] O2 Sat, Arterial 98.3 (H) 96.0 - 97.0 % [facility] HCO3, Arterial 28 21 - 29 mmol/L [facility] Base Excess, Arterial 1.2 -2.0 - 3.0 mmol/L [facility] Patient Temperature 35.4 C [facility] FIO2 30.0 % [facility] Specimen Blood, Arterial Performing Organization Address [facility] Phone Number [address] [address] CENTER Type and screen, automated (09/25/2018 6:12 AM [employer]) ABO/RH AUTOMATED (BEAKER) O POSITIVE [facility] Ab Scrn NEGATIVE [facility] Specimen Blood Performing Organization Address City/[facility] Phone Number [facility] [address] [place] [address] [phone] CBC (Hemogram only) (09/25/2018 6:12 AM [employer])Only the most recent of3 resultswithin the time period is included. WBC 10.4 3.5 - 10.5 K/L [facility] RBC 3.34 (L) 4.63 - 6.08 M/L [facility] Hemoglobin 10.6 (L) 13.7 - 17.5 GM/DL [facility] Hematocrit 32.7 (L) 40.1 - 51.0 % [facility] MCV 97.9 (H) 79.0 - 92.2 fL [facility] MCH 31.7 25.7 - 32.2 pg [facility] MCHC 32.4 32.3 - 36.5 GM/DL [facility] RDW 12.4 11.6 - 14.4 % [facility] Platelets 248 150 - 450 K/CU MM [facility] MPV 9.4 9.4 - 12.4 fL [facility] nRBC 0 0 - 0 /100 WBC [facility] Specimen Blood Performing Organization Address City/[facility]/Zipcode Phone Number [facility] [address] [place], [place] [phone] [place] Urinalysis w/Microscopic + Reflex to Culture (09/24/2018 12:43 PM [employer]) Color, UA Light Yellow [facility] Clarity, UA Clear [facility] Specific [place], UA 1.006 1.001 - 1.035 [facility] pH, UA 7.0 5.0 - 8.0 [facility] Protein, UA Negative Negative [facility] Glucose, UA Negative Negative [facility] Ketones, UA Negative Negative [facility] Bilirubin, UA Negative Negative [facility] Blood, UA Negative Negative [facility] Nitrite, UA Negative Negative [facility] Leukocytes, UA Negative Negative [facility] Urobilinogen, UA 0.2 0.2 - 1.0 mg/dL [facility] RBC, UA <1 /HPF [facility] WBC, UA <1 /HPF [facility] Specimen Source [facility] Specimen Urine Performing Organization Address City/[facility]/Zipcode Phone Number [facility] [address] [place] [address] [place] US chest (09/23/2018 11:17 AM [employer]) Specimen Narrative Performed At FINAL REPORT [employer] INDICATION: Left pleural effusion Limited left chest ultrasound. IMPRESSION: Ultrasound examination of the left chest was performed in preparation for left thoracentesis. However, only trace amount of fluid is seen in the left pleural space, not amenable for safe drainage. Thoracentesis is therefore not performed. Signed: Reyes Guardado MD Report Verified Date/Time:09/23/2018 11:20:35 Reading Location: [facility] [id number] Ortho Consult Reading Room Procedure Note Interface, External Ris In - 09/23/2018 11:22 AM [employer] FINAL REPORT INDICATION: Left pleural effusion Limited left chest ultrasound. IMPRESSION: Ultrasound examination of the left chest was performed in preparation for left thoracentesis. However, only trace amount of fluid is seen in the left pleural space, not amenable for safe drainage. Thoracentesis is therefore not performed. Signed: Reyes Guardado MD Report Verified Date/Time: 09/23/2018 11:20:35 Reading Location: [facility] [id number] Ortho Consult Reading Room Performing Organization Address City/[facility] Phone Number GE RIS aPTT (09/23/2018 4:35 AM [employer]) PTT 31.6 22.5 - 36.0 seconds [facility] Specimen Blood Performing Organization Address [facility] Phone Number [place] [phone] [place] [address] CENTER Prothrombin time/INR (09/23/2018 4:35 AM [employer]) Protime 14.7 11.7 - 14.7 seconds [facility] INR 1.2 <=5.9 [facility] Specimen Blood Narrative Performed At RECOMMENDED COUMADIN/WARFARIN INR THERAPY [facility] RANGES STANDARD DOSE: 2.0 - 3.0 Includes: PROPHYLAXIS for venous thrombosis, systemic embolization; TREATMENT for venous thrombosis and/or pulmonary embolus. HIGH RISK: Target INR is 2.5-3.5 for patients with mechanical heart valves. Performing Organization Address City/[facility] Phone Number [facility] [address] [place] [address] CENTER CTA chest (09/21/2018 12:03 PM [employer]) Specimen Narrative Performed At Addendum Begins [facility] REPORT STATUS:A Addendum: There is increased density visualized in the left pleural fluid collection. Clinical correlation is needed if an inflammatory or hemorrhagic process is suspected. I agree with the previously described non vascular findings. Signed: Dorota Russell MD Report Verified Date/Time:09/21/2018 14:55:20 Reading Location: [facility] P048 Angio Body Reading Room Addendum [...] artery have increased calcific atherosclerosis seen with zbgx-al-tbbfjbsl lesion identified. The right common femoral artery [...] 5.An addendum will be dictated by the Landscape Laborer Radiologist regarding the nonvascular findings. Signed: Shawn Barnes MD Report Verified Date/Time:09/21/2018 14:01:54 Reading Location: [place] [address] Cardiology MRI Procedure Note Interface, External Ris In - 09/21/2018 2:57 PM [employer] Addendum Begins REPORT STATUS:A Addendum: There is increased density visualized in the left pleural fluid collection. Clinical correlation is needed if an inflammatory or hemorrhagic process is suspected. I agree with the previously described non vascular findings. Signed: Dorota Russell MD Report Verified Date/Time: 09/21/2018 14:55:20 Reading Location: [place] [id number] Angio Body Reading Room Addendum Ends FINAL [...] artery have increased calcific atherosclerosis seen with grki-ol-wyzlzpqf lesion identified. The right common femoral artery [...] An addendum will be dictated by the Landscape Laborer Radiologist regarding the nonvascular findings. Signed: Shawn Barnes MD Report Verified Date/Time: 09/21/2018 14:01:54 Reading Location: [place] [address] Cardiology MRI Performing Organization Address City/State/Zipcode Phone Number [employer] CTA abdomen & pelvis (09/21/2018 12:03 PM [employer]) Specimen Narrative Performed At Addendum Begins [employer] REPORT STATUS:A Addendum: There is increased density visualized in the left pleural fluid collection. Clinical correlation is needed if an inflammatory or hemorrhagic process is suspected. I agree with the previously described non vascular findings. Signed: Dorota Russell MD Report Verified Date/Time:09/21/2018 14:55:20 Reading Location: [facility] P048 Angio Body Reading Room Addendum [...] artery have increased calcific atherosclerosis seen with jhxz-ke-afxkfshd lesion identified. The right common femoral artery [...] 5.An addendum will be dictated by the Landscape Laborer Radiologist regarding the nonvascular findings. Signed: Shawn Barnes MD Report Verified Date/Time:09/21/2018 14:01:54 Reading Location: [facility] P047 Cardiology MRI Procedure Note Interface, External Ris In - 09/21/2018 2:57 PM [employer] Addendum Begins REPORT STATUS:A Addendum: There is increased density visualized in the left pleural fluid collection. Clinical correlation is needed if an inflammatory or hemorrhagic process is suspected. I agree with the previously described non vascular findings. Signed: Dorota Russell MD Report Verified Date/Time: 09/21/2018 14:55:20 Reading Location: [place] [id number] Angio Body Reading Room Addendum Ends FINAL [...] artery have increased calcific atherosclerosis seen with benm-if-eenxuafr lesion identified. The right common femoral artery [...] An addendum will be dictated by the Landscape Laborer Radiologist regarding the nonvascular findings. Signed: Shawn Barnes MD Report Verified Date/Time: 09/21/2018 14:01:54 Reading Location: [place] [address] Cardiology MRI Performing Organization Address City/State/Zipcode Phone Number [employer] Arterial doppler legs bilateral (09/21/2018 8:51 AM [employer]) Ejection Fraction [facility] MKCrispifyESSON CPA Specimen Impressions Performed At Right Impression [facility] MKCKESSON [facility] 1. The common femoral is patent with [...] + + + + + + !Prox FOREST RANGER ! !! !Absent ! !! !Absent ! + + + + + + + + + + !Mid FOREST RANGER ! !12.4! !Monophasic ! !! !Absent ! + + + + + + + + + + !Dist FOREST RANGER ! !! !Absent ! !! !Absent ! [...] PV LAB - Lower Extremity Arterial Duplex [facility] Demographics Patient Name ALVA LUBIN Date of Study09/21/2018 SR. [id number] Age78 Visit Number [id number] Gender Male Accession Number [id number] Date of Birth1940 [facility] Z[address]ns[address] Physician SonographMiguel [place].Interpreting Ju Goldsmith RVT, PRITI PhysicianMD Cassie HOLMT Procedure Type of Study: Extremities Arteries: Lower Extremities Arterial Duplex, ARTERIAL DOPPLER LEGS, BILATERAL. Indications for Study:TAVR workup . Patient Status:NANCY. Study Location:Vascular Lab. Technical Quality:Technically Difficult. Risk Factors History of Disease +---------+----+ + !Diagnosis!Date!Comments ! +---------+----+ + !Other!!a-fib, hdl, ht, cad, cad, pad ! +---------+----+ + Procedure Note Interface, External Ris In - 09/22/2018 7:23 AM [employer] PV LAB - Lower Extremity Arterial Duplex Demographics Patient Name ALVA LUBIN Date of Study 09/21/2018 SR. Age 78 Visit Number [id number] Gender Male Accession Number [id number] Date of 1940 Referring Hernan Baron Room Number 2435 Physician Coil Tester [place]. Interpreting Ju Goldsmith, RVT, ARDMS Physician MD Cassie Bosch RVT [...] + + + +-------- ---------+ + !Prox FOREST RANGER ! ! ! !Absent ! ! ! !Absent ! + + + ------+ + + + +-------- ---------+ + !Mid FOREST RANGER ! !12.4 ! !Monophasic ! ! ! !Absent ! + + + ------+ + + + +-------- ---------+ + !Dist FOREST RANGER ! ! ! !Absent ! ! ! [...] + Performing Organization Address City/State/Zipcode Phone Number [facility] Carotid doppler bilateral (09/21/2018 8:51 AM [employer]OL [employer]ACH) Ejection Fraction [facility] Specimen Impressions Performed At Right Impression [facility] Dashride [facility] 1. There is 50-69% diameter reduction [...] At PV LAB - Carotid Duplex Study [facility] MK[facility]ON [facility] Demographics Patient Name ALVA LUBIN Date of Study 09/21/2018 SR. [id number] Age 78 Visit Number [id number] GenderMale Accession Number [id number] Date of 1940 Cheri MONDRAGON [place] Number 6887 Physician SonographMiguel [place].Maurice Goldsmith Qiana, [facility] Physician Procedure Type of Study: Cerebral: Carotid, CAROTID DOPPLER, BILATERAL. Indications for Study:TAVR workup . Patient Status:NANCY. Study Location:Vascular Lab. Technical Quality:Technically Difficult. Risk Factors History of Disease +---------+----+ + !Diagnosis!Date!Comments ! +---------+----+ + !Other!!a-fib, hdl, ht, cad, cad, pad ! +---------+----+ + Procedure Note Interface, External Ris In - 09/22/2018 7:24 AM [facility] PV LAB - Carotid Duplex Study Demographics Patient Name ALVA LUBIN Date of Study 09/21/2018 SR. Age 78 Visit Number [id number] Gender Male Accession Number [id number] Date of 1940 Referring Hernan Baron Room Number 2286 Physician Coil Tester [place]. Interpreting Ju Goldsmith, MIHAIT, ARDMS Physician Procedure Type of Study: Cerebral: Carotid, [...] Additional Measurements:ICAPSV/CCAPSV 1.65.ICAEDV/CCAEDV 1.76. Performing Organization Address [facility] Cent[facility]ode Phone Number [facility] MKCKESSON CPACS XR chest 1 view portable / bedside (09/20/2018 8:19 PM [employer] COACH) Specimen Narrative Performed At FINAL REPORT [employer] Chest one view AP 09/20/2018 8:32 PM CLINICAL INDICATION: SOB COMPARISON: 07/30/2015 IMPRESSION: There are trace right and small volume pleural effusions. Bibasilar opacities suggest atelectasis. Pneumonia should be excluded clinically. The cardiac silhouette is prominent, but stable. The central pulmonary vasculature is not engorged. Cardiac support hardware is unchanged in position. Signed: Ramses Keith MD Report Verified Date/Time:09/20/2018 20:32:40 Reading Location: [facility] Radiology Reading Room Procedure Note Interface, External Ris In - 09/20/2018 9:20 PM MIDD[employer] S[employer]OL [employer]ACH FINAL REPORT Chest one view AP 09/20/2018 [...] Report Verified Date/Time: 09/20/2018 20:32:40 Reading Location: [facility] Radiology Reading Room Performing Organization Address [facility]/Zipcode Phone Number [employer] ECHOCARDIOGRAM REPORT - SCAN (09/19/2018 5:50 PM [employer]DLE S[employer]OL [employer]ACH) Narrative Performed At ECHO W CONTRAST & DOPPLER (09/19/2018 2:01 PM [employer] COACH) Ejection Fraction [facility] Specimen Narrative Performed At Transthoracic Echocardiography Report (TTE) [facility] Demographics Patient NameBIALVA LINDSEYDate of Study09/19/2018 LEONARDO SR. Male Visit [id number] Room [id number] Number Date of 1940Referring EFE Fisher Physician Age 78 year(s)Coil Tester Dl Mohan [facility] Interpreting Physician MónicaMD FellowHeather MD Simba Procedure Type of Study TTE procedure:2DECHO W/CONTRAST [...] now noted: the degree of is now bicdsjwc-pu-xwwpkx, the PASP is 50-55mmHg, and there is [...] External Ris In - 09/19/2018 4:52 PM [employer]CHO[employer] CO[employer] Transthoracic Echocardiography Report (TTE) Demographics Patient Name ALVA LUBIN Date of Study 09/19/2018 LEONARDO . Gender Male Visit Number [id number] Race Room Number 2435 Number Date of 1940 Referring EFE Fisher Physician Age 78 year(s) Coil Tester Dl Mohan [facility] Interpreting Fernandez Alexander, Physician MD Fellow Reva [...] now noted: the degree of is now exqfqsdu-mr-qyhlfd, the PASP is 50-55mmHg, and there is [...] LVESV Rick's:37.2 ml LVEDVI: 50 ml/m^2 LVEF Rikc's: 56.6 % LVESVI: 22 ml/m^2 LVOT Diameter: [...] MKCKESSON CPACS Hemoglobin A1c (09/19/2018 9:45 AM MIDDLE SCHOOL COACH) Hemoglobin A1C 6.4 (H) 4.3 - 6.1 % [facility] Specimen Blood Performing Organization Address City/[facility]/Zipcode Phone Number [address] [address] [phone] CENTER Troponin I (09/19/2018 6:01 AM [employer])Only the most recent of2 resultswithin the time period is included. Troponin I 0.01 0.00 - 0.03 ng/mL [facility] Specimen Blood Narrative Performed At Troponin I (TnI) levels must be interpreted [facility] in the context of the presenting [...] disease, and persistent tachyarrhythmia. Performing Organization Address City/[facility]/Zipcode Phone Number [place] [phone] [place], [place] [phone] CENTER B-type Natriuretic Factor (BNP) (09/18/2018 6:15 PM [employer] S[employer]OL COACH) BNP 1,260 (H) 0 - 100 pg/mL [facility] Specimen Blood Performing Organization Address [facility]ode Phone Number [address] [address] [place] Comprehensive metabolic panel (09/18/2018 6:15 PM [employer] COACH) Protein, Total 6.6 6.0 - 8.3 gm/dL [facility] Albumin 3.8 3.5 - 5.0 g/dL [facility] Alkaline Phosphatase 90 40 - 150 U/L [facility] Total Bilirubin 0.8 0.2 - 1.2 mg/dL [facility] Sodium 130 (L) 136 - 145 meq/L [facility] Potassium 3.8 3.5 - 5.1 meq/L [facility] Chloride 96 (L) 98 - 107 meq/L [facility] CO2 26 22 - 29 meq/L [facility] BUN 20 7 - 21 mg/dL [facility] Creatinine 0.98 0.57 - 1.25 mg/dL [facility] Glucose 103 70 - 105 mg/dL [facility] Calcium 9.3 8.4 - 10.2 mg/dL [facility] AST 26 5 - 34 U/L [facility] ALT 32 6 - 55 U/L [facility] EGFR 74Comment: ESTIMATED GFR mL/min/1.73 sq m [facility] IS NOT ACCURATE [facility] CREATININE CLEARANCE IN PREDICTING GLOMERULAR FILTRATION RATE. ESTIMATED GFR IS NOT APPLICABLE FOR DIALYSIS PATIENTS. Specimen Blood Performing Organization Address City/State/Zipcode Phone Number [facility] [address] [place] [address] CENTER after 03/08/2018 Insurance Payer Benefit Plan / Group Subscriber ID Type Phone Address MEDICARE MEDICARE A B xxxxxxxxxxx Medicare Advance Directives For more information, please contact:[facility] [place], [place] [phone] Code Status Date Activated Date Inactivated Comments [...]
--- OUTSIDE RECORDS SUMMARY | 2019-03-09 05:56 | XMS REPORT ---
:1940 [facility] Address [address] [place] [address] Care Team Providers Name Role Phone JOE MURRY Unavailable Unavailable Problems This patient has no known problems. Allergies, Adverse Reactions, Alerts This patient has no known allergies or adverse reactions. Medications This patient has no known medications. Results Test Description Test Time Test Comments Text Results Atomic Results Result Comments TISSUE EXAM 2018-10-04 14:19:00 Surgical Pathology Report Case: [id number] Authorizing Provider: Jhonathan Sharma MD Collected: 09/25/2018 1808 Ordering Location: [address] Received: 09/26/2018 0927 Service Pathologist: Haris Jeter MD Specimen: Plaque, arterial plaque ARTERY, LEFT FEMORAL, ENDARTERECTOMY:CALCIFIC ATHEROSCLEROTIC PLAQUE Signing Pathologist Direct Phone Line: [phone] signed by Haris Jeter MD on 10/04/2018 at 2:19 [id number]; [id number] femoral artery plaqueArterial plaqueThe specimen is received in saline labeled with the patient's information labeled "arterial plaque" and consists of previously opened calcified segment of tissue measuring 2.5 cm in length x 0.5 cm in circumference. Parts Cataloguer sections are submitted A1 for decalcification. CG/pl Performed POCT-GLUCOSE METER 2018-09-28 13:44:00 Test Item Value Reference Range Comments POC-GLUCOSE METER (BEAKER) (test 326 mg/dL 70-110 TESTED AT [address] mdke=8183) [facility] [address] POCT-GLUCOSE [id number] 11:32:00 Test Item Value Reference Range Comments POC-GLUCOSE METER (BEAKER) 150 mg/dL 70-110 TESTED AT [place] [address] [facility] (test sosr=3440) [facility] [address] [id number] 04:26:00 Test Item Value Reference Range Comments MAGNESIUM (BEAKER) (test uwqi=107) 1.6 mg/dL 1.6-2.6 BASIC METABOLIC [id number] 04:26:00 Test Item Value Reference Range Comments SODIUM (BEAKER) (test 138 meq/L 136-145 tcgk=490) POTASSIUM (BEAKER) (test 3.6 meq/L 3.5-5.1 dacz=450) CHLORIDE (BEAKER) (test 103 meq/L 98-107 hdtw=398) CO2 (BEAKER) (test 27 meq/L 22-29 yfzz=729) BLOOD UREA NITROGEN 30 mg/dL 7-21 (BEAKER) (test pyqi=107) CREATININE (BEAKER) (test 1.04 mg/dL 0.57-1.25 lcvp=494) GLUCOSE RANDOM (BEAKER) 115 mg/dL 70-105 (test bwlt=290) CALCIUM (BEAKER) (test 8.8 mg/dL 8.4-10.2 fdbj=578) EGFR (BEAKER) (test 69 mL/min/1.73 sq m ESTIMATED GFR IS NOT yrdb=8288) ACCURATE CREATININE CLEARANCE IN PREDICTING GLOMERULAR FILTRATION RATE. ESTIMATED GFR IS NOT APPLICABLE FOR DIALYSIS PATIENTS. CBC W/PLT COUNT & AUTO [id number] 04:09:00 Test Item Value Reference Range Comments WHITE BLOOD CELL COUNT (BEAKER) (test mscw=906) 9.4 K/ L 3.5-10.5 RED BLOOD CELL COUNT (BEAKER) (test uykn=814) 2.67 M/ L 4.63-6.08 HEMOGLOBIN (BEAKER) (test qliu=798) 8.4 GM/DL 13.7-17.5 HEMATOCRIT (BEAKER) (test vrhl=439) 25.7 % 40.1-51.0 MEAN CORPUSCULAR VOLUME (BEAKER) (test cumw=676) 96.3 fL 79.0-92.2 MEAN CORPUSCULAR HEMOGLOBIN (BEAKER) (test 31.5 pg 25.7-32.2 cezw=663) MEAN CORPUSCULAR HEMOGLOBIN CONC (BEAKER) (test 32.7 GM/DL 32.3-36.5 qzmi=939) RED CELL DISTRIBUTION WIDTH (BEAKER) (test 12.4 % 11.6-14.4 vmlc=126) PLATELET COUNT (BEAKER) (test ufcy=233) 213 K/CU MM 150-450 MEAN PLATELET VOLUME (BEAKER) (test dafw=331) 9.9 fL 9.4-12.4 NUCLEATED RED BLOOD CELLS (BEAKER) (test 0 /100 WBC 0-0 gfen=127) NEUTROPHILS RELATIVE PERCENT (BEAKER) (test 70 % jshf=734) LYMPHOCYTES RELATIVE PERCENT (BEAKER) (test 12 % bkeo=500) MONOCYTES RELATIVE PERCENT (BEAKER) (test 12 % cnpd=370) EOSINOPHILS RELATIVE PERCENT (BEAKER) (test 5 % kajh=538) BASOPHILS RELATIVE PERCENT (BEAKER) (test 1 % bedm=848) NEUTROPHILS ABSOLUTE COUNT (BEAKER) (test 6.50 K/ L 1.78-5.38 bixz=001) LYMPHOCYTES ABSOLUTE COUNT (BEAKER) (test 1.10 K/ L 1.32-3.57 cccl=398) MONOCYTES ABSOLUTE COUNT (BEAKER) (test 1.16 K/ L 0.30-0.82 dnoa=543) EOSINOPHILS ABSOLUTE COUNT (BEAKER) (test 0.49 K/ L 0.04-0.54 hbbr=814) BASOPHILS ABSOLUTE COUNT (BEAKER) (test 0.05 K/ L 0.01-0.08 mcjo=978) IMMATURE GRANULOCYTES-RELATIVE PERCENT (BEAKER) 1 % 0-1 (test gnow=6930) [id number] 03:49:00 Test Item Value Reference Range Comments MAGNESIUM (BEAKER) (test yils=089) 1.7 mg/dL 1.6-2.6 BASIC METABOLIC [id number] 03:49:00 Test Item Value Reference Range Comments SODIUM (BEAKER) (test 136 meq/L 136-145 csfq=049) POTASSIUM (BEAKER) (test 3.5 meq/L 3.5-5.1 ocby=529) CHLORIDE (BEAKER) (test 102 meq/L 98-107 cmhd=154) CO2 (BEAKER) (test 27 meq/L 22-29 rvzo=435) BLOOD UREA NITROGEN 31 mg/dL 7-21 (BEAKER) (test uucl=052) CREATININE (BEAKER) (test 1.22 mg/dL 0.57-1.25 xtrk=353) GLUCOSE RANDOM (BEAKER) 122 mg/dL 70-105 (test mfnr=301) CALCIUM (BEAKER) (test 8.9 mg/dL 8.4-10.2 jhvr=727) EGFR (BEAKER) (test 57 mL/min/1.73 sq m ESTIMATED GFR IS NOT dhaj=0467) ACCURATE CREATININE CLEARANCE IN PREDICTING GLOMERULAR FILTRATION RATE. ESTIMATED GFR IS NOT APPLICABLE FOR DIALYSIS PATIENTS. CBC W/PLT COUNT & AUTO [id number] 03:32:00 Test Item Value Reference Range Comments WHITE BLOOD CELL COUNT (BEAKER) (test mcbb=812) 10.0 K/ L 3.5-10.5 RED BLOOD CELL COUNT (BEAKER) (test tpeu=547) 2.75 M/ L 4.63-6.08 HEMOGLOBIN (BEAKER) (test gotd=851) 8.7 GM/DL 13.7-17.5 HEMATOCRIT (BEAKER) (test rjae=974) 26.7 % 40.1-51.0 MEAN CORPUSCULAR VOLUME (BEAKER) (test ghsw=054) 97.1 fL 79.0-92.2 MEAN CORPUSCULAR HEMOGLOBIN (BEAKER) (test 31.6 pg 25.7-32.2 nofb=394) MEAN CORPUSCULAR HEMOGLOBIN CONC (BEAKER) (test 32.6 GM/DL 32.3-36.5 drem=536) RED CELL DISTRIBUTION WIDTH (BEAKER) (test 12.5 % 11.6-14.4 xbpd=554) PLATELET COUNT (BEAKER) (test angr=989) 189 K/CU MM 150-450 MEAN PLATELET VOLUME (BEAKER) (test bjre=024) 9.9 fL 9.4-12.4 NUCLEATED RED BLOOD CELLS (BEAKER) (test 0 /100 WBC 0-0 ywaa=115) NEUTROPHILS RELATIVE PERCENT (BEAKER) (test 74 % qtpw=423) LYMPHOCYTES RELATIVE PERCENT (BEAKER) (test 10 % thwu=492) MONOCYTES RELATIVE PERCENT (BEAKER) (test 11 % lkhs=163) EOSINOPHILS RELATIVE PERCENT (BEAKER) (test 4 % yhcr=195) BASOPHILS RELATIVE PERCENT (BEAKER) (test 1 % qiio=304) NEUTROPHILS ABSOLUTE COUNT (BEAKER) (test 7.39 K/ L 1.78-5.38 lvqy=763) LYMPHOCYTES ABSOLUTE COUNT (BEAKER) (test 0.99 K/ L 1.32-3.57 vnmo=350) MONOCYTES ABSOLUTE COUNT (BEAKER) (test 1.12 K/ L 0.30-0.82 rwrp=166) EOSINOPHILS ABSOLUTE COUNT (BEAKER) (test 0.40 K/ L 0.04-0.54 wtla=429) BASOPHILS ABSOLUTE COUNT (BEAKER) (test 0.06 K/ L 0.01-0.08 zjag=006) IMMATURE GRANULOCYTES-RELATIVE PERCENT (BEAKER) 1 % 0-1 (test fopg=8914) [id number] 10:17:00 Test Item Value Reference Range Comments MAGNESIUM (BEAKER) (test klcp=156) 1.6 mg/dL 1.6-2.6 BASIC METABOLIC [id number] 10:17:00 Test Item Value Reference Range Comments SODIUM (BEAKER) (test 135 meq/L 136-145 bqrf=816) POTASSIUM (BEAKER) (test 3.8 meq/L 3.5-5.1 fglj=042) CHLORIDE (BEAKER) (test 101 meq/L 98-107 ucxl=798) CO2 (BEAKER) (test 27 meq/L 22-29 cijj=682) BLOOD UREA NITROGEN 30 mg/dL 7-21 (BEAKER) (test vmkd=582) CREATININE (BEAKER) (test 1.23 mg/dL 0.57-1.25 xzmi=876) GLUCOSE RANDOM (BEAKER) 120 mg/dL 70-105 (test lwri=563) CALCIUM (BEAKER) (test 8.6 mg/dL 8.4-10.2 bpfe=220) EGFR (BEAKER) (test 57 mL/min/1.73 sq m ESTIMATED GFR IS NOT pycn=8368) ACCURATE CREATININE CLEARANCE IN PREDICTING GLOMERULAR FILTRATION RATE. ESTIMATED GFR IS NOT APPLICABLE FOR DIALYSIS PATIENTS. CBC W/PLT COUNT & AUTO [id number] 03:47:00 Test Item Value Reference Range Comments WHITE BLOOD CELL COUNT (BEAKER) (test ktqc=925) 10.0 K/ L 3.5-10.5 RED BLOOD CELL COUNT (BEAKER) (test glcx=160) 2.80 M/ L 4.63-6.08 HEMOGLOBIN (BEAKER) (test bmvm=383) 8.9 GM/DL 13.7-17.5 HEMATOCRIT (BEAKER) (test geaq=157) 26.9 % 40.1-51.0 MEAN CORPUSCULAR VOLUME (BEAKER) (test etdn=805) 96.1 fL 79.0-92.2 MEAN CORPUSCULAR HEMOGLOBIN (BEAKER) (test 31.8 pg 25.7-32.2 wxnq=181) MEAN CORPUSCULAR HEMOGLOBIN CONC (BEAKER) (test 33.1 GM/DL 32.3-36.5 lrqi=674) RED CELL DISTRIBUTION WIDTH (BEAKER) (test 12.5 % 11.6-14.4 lhkp=464) PLATELET COUNT (BEAKER) (test obpk=185) 212 K/CU MM 150-450 MEAN PLATELET VOLUME (BEAKER) (test tvph=139) 9.4 fL 9.4-12.4 NUCLEATED RED BLOOD CELLS (BEAKER) (test 0 /100 WBC 0-0 dohq=964) NEUTROPHILS RELATIVE PERCENT (BEAKER) (test 77 % myug=208) LYMPHOCYTES RELATIVE PERCENT (BEAKER) (test 9 % dmwx=740) MONOCYTES RELATIVE PERCENT (BEAKER) (test 12 % pyct=765) EOSINOPHILS RELATIVE PERCENT (BEAKER) (test 2 % fxxo=347) BASOPHILS RELATIVE PERCENT (BEAKER) (test 0 % tvqa=951) NEUTROPHILS ABSOLUTE COUNT (BEAKER) (test 7.65 K/ L 1.78-5.38 ivjb=053) LYMPHOCYTES ABSOLUTE COUNT (BEAKER) (test 0.92 K/ L 1.32-3.57 otuj=291) MONOCYTES ABSOLUTE COUNT (BEAKER) (test 1.17 K/ L 0.30-0.82 gxpr=413) EOSINOPHILS ABSOLUTE COUNT (BEAKER) (test 0.16 K/ L 0.04-0.54 wfns=481) BASOPHILS ABSOLUTE COUNT (BEAKER) (test 0.04 K/ L 0.01-0.08 hnba=970) IMMATURE GRANULOCYTES-RELATIVE PERCENT (BEAKER) 1 % 0-1 (test dfgc=2109) [id number] 17:44:00 Test Item Value Reference Range Comments ACTIVATED CLOTTING TIME [address] [facility] [address] [facility] (BEAKER) (test gyao=065) [facility] [address] BLOOD GAS, [id number] 17:15:00 Test Item Value Reference Range Comments PH ARTERIAL (BEAKER) (test rhtx=828) 7.36 7.35-7.45 PCO2 ARTERIAL (BEAKER) (test gwvj=908) 49 mmHg 35-45 PO2 ARTERIAL (BEAKER) (test ejjn=896) 119 mmHg 80-90 O2 SATURATION ARTERIAL (BEAKER) (test vipr=909) 98.3 % 96.0-97.0 HCO3 ARTERIAL (BEAKER) (test dxgt=047) 28 mmol/L 21-29 BASE EXCESS ARTERIAL (BEAKER) (test wkgo=361) 1.2 mmol/L -2.0-3.0 PATIENT TEMPERATURE (BEAKER) (test pxgs=0285) 35.4 C FIO2 (BEAKER) (test lbfo=6696) 30.0 % SODIUM NA-STAT [id number] 17:15:00 Test Item Value Reference Range Comments SODIUM (BEAKER) (test egtw=948) 132 meq/L 135-148 HGB/HCT (H&H) - STAT [id number] 17:15:00 Test Item Value Reference Range Comments HEMOGLOBIN (BEAKER) (test ibth=819) 11.2 g/dL 13.0-16.8 HEMATOCRIT (BEAKER) (test wgmj=600) 33.0 % 40.0-50.0 GLUCOSE-STAT [id number] 17:14:00 Test Item Value Reference Range Comments GLUCOSE RANDOM (BEAKER) (test puls=413) 104 mg/dL 70-110 POTASSIUM-STAT [id number] 17:14:00 Test Item Value Reference Range Comments POTASSIUM (BEAKER) (test tvtc=802) 4.1 meq/L 3.6-5.5 [id number] 17:11:00 Test Item Value Reference Range Comments ACTIVATED CLOTTING TIME [address] [facility] [address] (BEAKER) (test puye=319) [place] [id number] 16:12:00 Test Item Value Reference Range Comments ACTIVATED CLOTTING TIME [address] [facility] [address] (BEAKER) (test fzsw=107) [place] [id number] BASIC METABOLIC [id number] 07:04:00 Test Item Value Reference Range Comments SODIUM (BEAKER) (test 132 meq/L 136-145 gqft=261) POTASSIUM (BEAKER) (test 4.0 meq/L 3.5-5.1 ryjy=288) CHLORIDE (BEAKER) (test 99 meq/L 98-107 ydqk=896) CO2 (BEAKER) (test 24 meq/L 22-29 znog=677) BLOOD UREA NITROGEN 30 mg/dL 7-21 (BEAKER) (test npwc=157) CREATININE (BEAKER) (test 1.14 mg/dL 0.57-1.25 oqqz=488) GLUCOSE RANDOM (BEAKER) 101 mg/dL 70-105 (test npem=707) CALCIUM (BEAKER) (test 9.1 mg/dL 8.4-10.2 lckm=702) EGFR (BEAKER) (test 62 mL/min/1.73 sq m ESTIMATED GFR IS NOT qadr=5104) ACCURATE CREATININE CLEARANCE IN PREDICTING GLOMERULAR FILTRATION RATE. ESTIMATED GFR IS NOT APPLICABLE FOR DIALYSIS PATIENTS. CBC (HEMOGRAM ONLY)2018-09-25 06:47:00 Test Item Value Reference Range Comments WHITE BLOOD CELL COUNT (BEAKER) (test bhpc=067) 10.4 K/ L 3.5-10.5 RED BLOOD CELL COUNT (BEAKER) (test nsrg=326) 3.34 M/ L 4.63-6.08 HEMOGLOBIN (BEAKER) (test mxbw=163) 10.6 GM/DL 13.7-17.5 HEMATOCRIT (BEAKER) (test omin=275) 32.7 % 40.1-51.0 MEAN CORPUSCULAR VOLUME (BEAKER) (test tmnq=399) 97.9 fL 79.0-92.2 MEAN CORPUSCULAR HEMOGLOBIN (BEAKER) (test 31.7 pg 25.7-32.2 fdks=390) MEAN CORPUSCULAR HEMOGLOBIN CONC (BEAKER) (test 32.4 GM/DL 32.3-36.5 arve=824) RED CELL DISTRIBUTION WIDTH (BEAKER) (test 12.4 % 11.6-14.4 srbc=658) PLATELET COUNT (BEAKER) (test ctnk=367) 248 K/CU MM 150-450 MEAN PLATELET VOLUME (BEAKER) (test crjt=438) 9.4 fL 9.4-12.4 NUCLEATED RED BLOOD CELLS (BEAKER) (test 0 /100 WBC 0-0 svzc=309) URINALYSIS W/ REFLEX URINE [id number] 13:29:00 Test Item Value Reference Range Comments COLOR (BEAKER) (test owjc=310) Light Yellow CLARITY (BEAKER) (test hegz=000) Clear SPECIFIC GRAVITY UA (BEAKER) (test acrm=121) 1.006 1.001-1.035 PH UA (BEAKER) (test yvdq=596) 7.0 5.0-8.0 PROTEIN UA (BEAKER) (test tfxf=252) Negative Negative GLUCOSE UA (BEAKER) (test bpux=905) Negative Negative KETONES UA (BEAKER) (test khfm=907) Negative Negative BILIRUBIN UA (BEAKER) (test ozls=013) Negative Negative BLOOD UA (BEAKER) (test uyju=936) Negative Negative NITRITE UA (BEAKER) (test fzjy=140) Negative Negative LEUKOCYTE ESTERASE UA (BEAKER) (test hkly=791) Negative Negative UROBILINOGEN UA (BEAKER) (test kfoe=720) 0.2 mg/dL 0.2-1.0 RBC UA (BEAKER) (test qohj=915) < /HPF WBC UA (BEAKER) (test ezie=209) < /HPF SOURCE(BEAKER) (test lzcl=0314) BASIC METABOLIC [id number] 06:55:00 Test Item Value Reference Range Comments SODIUM (BEAKER) (test 132 meq/L 136-145 rpho=077) POTASSIUM (BEAKER) (test 4.2 meq/L 3.5-5.1 hidj=681) CHLORIDE (BEAKER) (test 97 meq/L 98-107 hoar=253) CO2 (BEAKER) (test 26 meq/L 22-29 lpnk=220) BLOOD UREA NITROGEN 23 mg/dL 7-21 (BEAKER) (test lmyx=380) CREATININE (BEAKER) (test 1.14 mg/dL 0.57-1.25 evhg=931) GLUCOSE RANDOM (BEAKER) 79 mg/dL 70-105 (test bivf=696) CALCIUM (BEAKER) (test 9.5 mg/dL 8.4-10.2 pqwv=279) EGFR (BEAKER) (test 62 mL/min/1.73 sq m ESTIMATED GFR IS NOT aigi=4114) ACCURATE CREATININE CLEARANCE IN PREDICTING GLOMERULAR FILTRATION RATE. ESTIMATED GFR IS NOT APPLICABLE FOR DIALYSIS PATIENTS. CBC (HEMOGRAM ONLY)2018-09-24 05:48:00 Test Item Value Reference Range Comments WHITE BLOOD CELL COUNT (BEAKER) (test qtoi=557) 14.3 K/ L 3.5-10.5 RED BLOOD CELL COUNT (BEAKER) (test eblv=130) 3.91 M/ L 4.63-6.08 HEMOGLOBIN (BEAKER) (test actg=398) 12.3 GM/DL 13.7-17.5 HEMATOCRIT (BEAKER) (test veqk=473) 37.8 % 40.1-51.0 MEAN CORPUSCULAR VOLUME (BEAKER) (test kwuv=228) 96.7 fL 79.0-92.2 MEAN CORPUSCULAR HEMOGLOBIN (BEAKER) (test 31.5 pg 25.7-32.2 wzrm=312) MEAN CORPUSCULAR HEMOGLOBIN CONC (BEAKER) (test 32.5 GM/DL 32.3-36.5 meig=957) RED CELL DISTRIBUTION WIDTH (BEAKER) (test 12.5 % 11.6-14.4 wmfk=684) PLATELET COUNT (BEAKER) (test wcpy=179) 277 K/CU MM 150-450 MEAN PLATELET VOLUME (BEAKER) (test nxix=729) 9.1 fL 9.4-12.4 NUCLEATED RED BLOOD CELLS (BEAKER) (test 0 /100 WBC 0-0 asdu=340) POCT-GLUCOSE [id number] 18:09:00 Test Item Value Reference Range Comments POC-GLUCOSE METER (BEAKER) 99 mg/dL 70-[address] [facility] [address] [facility] (test loip=3982) [facility] [address] POCT-GLUCOSE [id number] 13:47:00 Test Item Value Reference Range Comments POC-GLUCOSE METER (BEAKER) 144 mg/dL 70-[address] [facility] [address] [facility] (test ttlg=9701) [facility] [address] U/S, [id number] 11:20:00Laterality?->Left Reason for exam:->left sided pleural effusion [...] MDReport Verified Date/Time: 09/23/2018 11:20:35 Reading Location: [address] Ortho Consult Reading Room PROTHROMBIN TIME/[id number] 05:40:00 Test Item Value Reference Range Comments PROTIME (BEAKER) (test vrzb=510) 14.7 seconds 11.7-14.7 INR (BEAKER) (test xbct=834) 1.2 <=5.9 RECOMMENDED COUMADIN/WARFARIN INR THERAPY RANGESSTANDARD DOSE: 2.0 - 3.0 Includes: PROPHYLAXIS forvenous thrombosis, systemic embolization; TREATMENT for venous thrombosis and/or pulmonary embolus.HIGH RISK: Target INR is 2.5-3.5 for patients with mechanical heart valves.[id number] 05:40:00 Test Item Value Reference Range Comments PARTIAL THROMBOPLASTIN TIME (BEAKER) (test 31.6 seconds 22.5-36.0 jyme=368) [id number] 05:21:00 Test Item Value Reference Range Comments MAGNESIUM (BEAKER) (test tkae=645) 1.6 mg/dL 1.6-2.6 BASIC METABOLIC [id number] 05:21:00 Test Item Value Reference Range Comments SODIUM (BEAKER) (test 132 meq/L 136-145 jxxl=148) POTASSIUM (BEAKER) (test 3.5 meq/L 3.5-5.1 udsl=094) CHLORIDE (BEAKER) (test 96 meq/L 98-107 sxql=185) CO2 (BEAKER) (test 28 meq/L 22-29 wlij=128) BLOOD UREA NITROGEN 22 mg/dL 7-21 (BEAKER) (test gkgf=461) CREATININE (BEAKER) (test 1.06 mg/dL 0.57-1.25 odwn=456) GLUCOSE RANDOM (BEAKER) 108 mg/dL 70-105 (test uygq=256) CALCIUM (BEAKER) (test 9.2 mg/dL 8.4-10.2 pkon=238) EGFR (BEAKER) (test 67 mL/min/1.73 sq m ESTIMATED GFR IS NOT ctyk=1402) ACCURATE CREATININE CLEARANCE IN PREDICTING GLOMERULAR FILTRATION RATE. ESTIMATED GFR IS NOT APPLICABLE FOR DIALYSIS PATIENTS. [id number] 05:20:00 Test Item Value Reference Range Comments MAGNESIUM (BEAKER) (test alws=409) 1.5 mg/dL 1.6-2.6 BASIC METABOLIC [id number] 05:20:00 Test Item Value Reference Range Comments SODIUM (BEAKER) (test 135 meq/L 136-145 vooq=939) POTASSIUM (BEAKER) (test 3.6 meq/L 3.5-5.1 fjxh=989) CHLORIDE (BEAKER) (test 98 meq/L 98-107 hdjl=556) CO2 (BEAKER) (test 29 meq/L 22-29 lsny=690) BLOOD UREA NITROGEN 22 mg/dL 7-21 (BEAKER) (test jgda=924) CREATININE (BEAKER) (test 1.07 mg/dL 0.57-1.25 rhdl=296) GLUCOSE RANDOM (BEAKER) 108 mg/dL 70-105 (test qsvi=812) CALCIUM (BEAKER) (test 9.3 mg/dL 8.4-10.2 gebh=896) EGFR (BEAKER) (test 67 mL/min/1.73 sq m ESTIMATED GFR IS NOT kfol=2731) ACCURATE CREATININE CLEARANCE IN PREDICTING GLOMERULAR FILTRATION RATE. ESTIMATED GFR IS NOT APPLICABLE FOR DIALYSIS PATIENTS. CBC W/PLT COUNT & AUTO [id number] 05:02:00 Test Item Value Reference Range Comments WHITE BLOOD CELL COUNT (BEAKER) (test jpsv=215) 8.3 K/ L 3.5-10.5 RED BLOOD CELL COUNT (BEAKER) (test wcii=868) 3.67 M/ L 4.63-6.08 HEMOGLOBIN (BEAKER) (test hdcf=663) 11.5 GM/DL 13.7-17.5 HEMATOCRIT (BEAKER) (test rgpj=227) 35.0 % 40.1-51.0 MEAN CORPUSCULAR VOLUME (BEAKER) (test rtzm=826) 95.4 fL 79.0-92.2 MEAN CORPUSCULAR HEMOGLOBIN (BEAKER) (test 31.3 pg 25.7-32.2 xnpu=148) MEAN CORPUSCULAR HEMOGLOBIN CONC (BEAKER) (test 32.9 GM/DL 32.3-36.5 rqyo=857) RED CELL DISTRIBUTION WIDTH (BEAKER) (test 12.5 % 11.6-14.4 ujvr=313) PLATELET COUNT (BEAKER) (test kkcb=381) 285 K/CU MM 150-450 MEAN PLATELET VOLUME (BEAKER) (test saps=092) 9.2 fL 9.4-12.4 NUCLEATED RED BLOOD CELLS (BEAKER) (test 0 /100 WBC 0-0 zxst=232) NEUTROPHILS RELATIVE PERCENT (BEAKER) (test 71 % vljm=453) LYMPHOCYTES RELATIVE PERCENT (BEAKER) (test 10 % yokk=194) MONOCYTES RELATIVE PERCENT (BEAKER) (test 12 % dtas=489) EOSINOPHILS RELATIVE PERCENT (BEAKER) (test 7 % khsr=571) BASOPHILS RELATIVE PERCENT (BEAKER) (test 1 % wkdz=473) NEUTROPHILS ABSOLUTE COUNT (BEAKER) (test 5.88 K/ L 1.78-5.38 jdbu=297) LYMPHOCYTES ABSOLUTE COUNT (BEAKER) (test 0.79 K/ L 1.32-3.57 nvxq=365) MONOCYTES ABSOLUTE COUNT (BEAKER) (test 1.01 K/ L 0.30-0.82 tudr=874) EOSINOPHILS ABSOLUTE COUNT (BEAKER) (test 0.55 K/ L 0.04-0.54 bikb=937) BASOPHILS ABSOLUTE COUNT (BEAKER) (test 0.06 K/ L 0.01-0.08 lefn=531) IMMATURE GRANULOCYTES-RELATIVE PERCENT (BEAKER) 1 % 0-1 (test ntgy=0335) CBC (HEMOGRAM ONLY)2018-09-23 05:02:00 Test Item Value Reference Range Comments WHITE BLOOD CELL COUNT (BEAKER) (test xpxu=571) 8.3 K/ L 3.5-10.5 RED BLOOD CELL COUNT (BEAKER) (test dvom=675) 3.67 M/ L 4.63-6.08 HEMOGLOBIN (BEAKER) (test upmh=861) 11.5 GM/DL 13.7-17.5 HEMATOCRIT (BEAKER) (test qlrm=079) 35.0 % 40.1-51.0 MEAN CORPUSCULAR VOLUME (BEAKER) (test chnt=793) 95.4 fL 79.0-92.2 MEAN CORPUSCULAR HEMOGLOBIN (BEAKER) (test 31.3 pg 25.7-32.2 tshz=880) MEAN CORPUSCULAR HEMOGLOBIN CONC (BEAKER) (test 32.9 GM/DL 32.3-36.5 dliz=566) RED CELL DISTRIBUTION WIDTH (BEAKER) (test 12.5 % 11.6-14.4 mnsj=129) PLATELET COUNT (BEAKER) (test vqgp=705) 285 K/CU MM 150-450 MEAN PLATELET VOLUME (BEAKER) (test bcke=807) 9.2 fL 9.4-12.4 NUCLEATED RED BLOOD CELLS (BEAKER) (test 0 /100 WBC 0-0 doww=810) POCT-GLUCOSE [id number] 21:35:00 Test Item Value Reference Range Comments POC-GLUCOSE METER (BEAKER) 133 mg/dL 70-110 TESTED AT [address] (test nsxq=5880) [place] [id number] POCT-GLUCOSE [id number] 17:37:00 Test Item Value Reference Range Comments POC-GLUCOSE METER (BEAKER) 147 mg/dL 70-110 TESTED AT [address] (test gzsc=8773) [place] [id number] 17:19:00 Test Item Value Reference Range Comments MAGNESIUM (BEAKER) (test fdil=027) 1.5 mg/dL 1.6-2.6 BASIC METABOLIC [id number] 17:19:00 Test Item Value Reference Range Comments SODIUM (BEAKER) (test 136 meq/L 136-145 pzpp=074) POTASSIUM (BEAKER) (test 3.4 meq/L 3.5-5.1 nyrc=993) CHLORIDE (BEAKER) (test 97 meq/L 98-107 leti=108) CO2 (BEAKER) (test 31 meq/L 22-29 vnnp=826) BLOOD UREA NITROGEN 21 mg/dL 7-21 (BEAKER) (test dnsy=558) CREATININE (BEAKER) (test 1.12 mg/dL 0.57-1.25 wlkk=007) GLUCOSE RANDOM (BEAKER) 114 mg/dL 70-105 (test qtbg=976) CALCIUM (BEAKER) (test 9.6 mg/dL 8.4-10.2 vdmz=276) EGFR (BEAKER) (test 63 mL/min/1.73 sq m ESTIMATED GFR IS NOT wrby=5441) ACCURATE CREATININE CLEARANCE IN PREDICTING GLOMERULAR FILTRATION RATE. ESTIMATED GFR IS NOT APPLICABLE FOR DIALYSIS PATIENTS. POCT-GLUCOSE [id number] 13:08:00 Test Item Value Reference Range Comments POC-GLUCOSE METER (BEAKER) 106 mg/dL 70-110 TESTED AT [place] [id number] [facility] (test lvwu=1829) [facility] [address] POCT-GLUCOSE [id number] 21:49:00 Test Item Value Reference Range Comments POC-GLUCOSE METER (BEAKER) 116 mg/dL 70-110 TESTED AT [address] (test uveg=5304) [facility] [address] POCT-GLUCOSE [id number] 17:56:00 Test Item Value Reference Range Comments POC-GLUCOSE METER (BEAKER) 142 mg/dL 70-110 TESTED AT [address] (test midk=9134) [facility] [address] CT, CTA, [id number] 14:55:00Addendum BeginsREPORT STATUS:A Addendum:There is increased density visualized in the left pleural fluid collection. Clinical correlation is needed if an inflammatory or hemorrhagic process is suspected.I agree with the previously described non vascular findings. Signed: Shirlene Ackerman MDReport Verified Date/Time: 09/21/2018 14:55:20 Reading Location: [place] [address] Angio Body Reading RoomAddendum EndsFINAL REPORT CT [...] artery have increased calcific atherosclerosis seen with uyst-ca-rizamayk lesion identified. The right common femoral arteryis [...] An addendum will be dictated by the [employer] Radiologist regarding the nonvascular findings. Signed: Shawn Barnes MDReport Verified Date/Time: 09/21/2018 14:01:54 Reading Location: [place] [address], CTA [id number] 14:55:00Addendum BeginsREPORT STATUS :A Addendum:There is increased density visualized in the left pleural fluid collection. Clinical correlation is needed if an inflammatory or hemorrhagic process is suspected.I agree with the previously described non vascular findings. Signed: Shirlene Ackerman MDReport Verified Date/Time : 09/21/2018 14:55:20 Reading Location: [place] [address] Angio Body Reading RoomAddendum EndsFINAL REPORT CT [...] artery have increased calcific atherosclerosis seen with uolm-nz-ytsscdoz lesion identified. The right common femoral arteryis [...] An addendum will be dictated by the [employer] Radiologist regarding the nonvascular findings. Signed: Shawn Barnes MDReport Verified Date/Time: 09/21/2018 14:01:54 Reading Location: [place] [address] Cardiology MRI [facility] METABOLIC [id number] 07:01:00 Test Item Value Reference Range Comments SODIUM (BEAKER) (test 129 meq/L 136-145 hngu=967) POTASSIUM (BEAKER) (test 3.3 meq/L 3.5-5.1 xngp=754) CHLORIDE (BEAKER) (test 96 meq/L 98-107 uoxn=758) CO2 (BEAKER) (test 24 meq/L 22-29 lkhv=210) BLOOD UREA NITROGEN 20 mg/dL 7-21 (BEAKER) (test xrkb=970) CREATININE (BEAKER) (test 1.07 mg/dL 0.57-1.25 gvgj=584) GLUCOSE RANDOM (BEAKER) 104 mg/dL 70-105 (test whsi=050) CALCIUM (BEAKER) (test 8.8 mg/dL 8.4-10.2 rnls=927) EGFR (BEAKER) (test 67 mL/min/1.73 sq m ESTIMATED GFR IS NOT nvjx=1694) ACCURATE CREATININE CLEARANCE IN PREDICTING GLOMERULAR FILTRATION RATE. ESTIMATED GFR IS NOT APPLICABLE FOR DIALYSIS PATIENTS. POCT-GLUCOSE [id number] 22:18:00 Test Item Value Reference Range Comments POC-GLUCOSE METER (BEAKER) 176 mg/dL 70-[address] [facility] [address] [facility] (test ydjl=0622) [facility] [address] RAD, CHEST, 1 VIEW, NON [id number] 20:32:00Reason for exam:->SOBShould this be performed at [...] Verified Date/Time: 09/20/2018 20:32 :40 Reading Location: [facility] Radiology Reading Room POCT-GLUCOSE [id number] 17:05:00 Test Item Value Reference Range Comments POC-GLUCOSE METER (BEAKER) 164 mg/dL 70-110 TESTED AT [address] (test aken=8179) [place] [address] POCT-GLUCOSE [id number] 13:55:00 Test Item Value Reference Range Comments POC-GLUCOSE METER (BEAKER) 105 mg/dL 70-110 TESTED AT [address] (test ahbb=7375) [place] [id number] POCT-GLUCOSE [id number] 09:01:00 Test Item Value Reference Range Comments POC-GLUCOSE METER (BEAKER) 116 mg/dL 70-110 TESTED AT [address] (test nenn=6857) [place] [id number] BASIC METABOLIC [id number] 05:36:00 Test Item Value Reference Range Comments SODIUM (BEAKER) (test 131 meq/L 136-145 uwfu=703) POTASSIUM (BEAKER) (test 3.8 meq/L 3.5-5.1 fhog=410) CHLORIDE (BEAKER) (test 100 meq/L 98-107 gjdj=475) CO2 (BEAKER) (test 23 meq/L 22-29 vqxb=162) BLOOD UREA NITROGEN 12 mg/dL 7-21 (BEAKER) (test exkb=776) CREATININE (BEAKER) (test 0.81 mg/dL 0.57-1.25 ptyo=233) GLUCOSE RANDOM (BEAKER) 102 mg/dL 70-105 (test zpow=796) CALCIUM (BEAKER) (test 9.1 mg/dL 8.4-10.2 sqav=843) EGFR (BEAKER) (test 92 mL/min/1.73 sq m ESTIMATED GFR IS NOT ldeo=1223) ACCURATE CREATININE CLEARANCE IN PREDICTING GLOMERULAR FILTRATION RATE. ESTIMATED GFR IS NOT APPLICABLE FOR DIALYSIS PATIENTS. POCT-GLUCOSE [id number] 23:13:00 Test Item Value Reference Range Comments POC-GLUCOSE METER (BEAKER) 119 mg/dL 70-110 TESTED AT [address] (test pxpq=4224) [place] [address] POCT-GLUCOSE [id number] 18:21:00 Test Item Value Reference Range Comments POC-GLUCOSE METER (BEAKER) 155 mg/dL 70-110 TESTED AT [address] (test fxpy=8620) [place] [address] HEMOGLOBIN [id number] 12:52:00 Test Item Value Reference Range Comments HEMOGLOBIN A1C (BEAKER) (test rfwa=808) 6.4 % 4.3-6.1 POCT-GLUCOSE [id number] 09:22:00 Test Item Value Reference Range Comments POC-GLUCOSE METER (BEAKER) 99 mg/dL 70-110 TESTED AT [address] (test nizf=2603) [place] [address] BASIC METABOLIC [id number] 06:48:00 Test Item Value Reference Range Comments SODIUM (BEAKER) (test 128 meq/L 136-145 pxaq=199) POTASSIUM (BEAKER) (test 4.2 meq/L 3.5-5.1 mhsg=321) CHLORIDE (BEAKER) (test 99 meq/L 98-107 sclg=771) CO2 (BEAKER) (test 24 meq/L 22-29 dddn=496) BLOOD UREA NITROGEN 15 mg/dL 7-21 (BEAKER) (test icfw=839) CREATININE (BEAKER) (test 0.81 mg/dL 0.57-1.25 vjmx=295) GLUCOSE RANDOM (BEAKER) 96 mg/dL 70-105 (test ckds=179) CALCIUM (BEAKER) (test 8.8 mg/dL 8.4-10.2 gtyo=346) EGFR (BEAKER) (test 92 mL/min/1.73 sq m ESTIMATED GFR IS NOT mdug=4797) ACCURATE CREATININE CLEARANCE IN PREDICTING GLOMERULAR FILTRATION RATE. ESTIMATED GFR IS NOT APPLICABLE FOR DIALYSIS PATIENTS. TROPONIN [id number] 06:46:00 Test Item Value Reference Range Comments TROPONIN I (BEAKER) (test rksq=191) 0.01 ng/mL 0.00-0.03 Troponin I (TnI) levels [...] and persistent tachyarrhythmia.CBC W/PLT COUNT & AUTO [id number] 06:29:00 Test Item Value Reference Range Comments WHITE BLOOD CELL COUNT (BEAKER) (test vgqv=504) 8.2 K/ L 3.5-10.5 RED BLOOD CELL COUNT (BEAKER) (test yvzz=346) 3.40 M/ L 4.63-6.08 HEMOGLOBIN (BEAKER) (test uior=716) 10.8 GM/DL 13.7-17.5 HEMATOCRIT (BEAKER) (test kynp=121) 32.1 % 40.1-51.0 MEAN CORPUSCULAR VOLUME (BEAKER) (test vcmx=926) 94.4 fL 79.0-92.2 MEAN CORPUSCULAR HEMOGLOBIN (BEAKER) (test 31.8 pg 25.7-32.2 lrnm=004) MEAN CORPUSCULAR HEMOGLOBIN CONC (BEAKER) (test 33.6 GM/DL 32.3-36.5 jyed=413) RED CELL DISTRIBUTION WIDTH (BEAKER) (test 12.5 % 11.6-14.4 hvfp=577) PLATELET COUNT (BEAKER) (test aepk=368) 257 K/CU MM 150-450 MEAN PLATELET VOLUME (BEAKER) (test lxfv=628) 9.6 fL 9.4-12.4 NUCLEATED RED BLOOD CELLS (BEAKER) (test 0 /100 WBC 0-0 gsuj=761) NEUTROPHILS RELATIVE PERCENT (BEAKER) (test 75 % qyzv=994) LYMPHOCYTES RELATIVE PERCENT (BEAKER) (test 10 % sfdd=160) MONOCYTES RELATIVE PERCENT (BEAKER) (test 11 % xkdb=342) EOSINOPHILS RELATIVE PERCENT (BEAKER) (test 3 % gmpr=248) BASOPHILS RELATIVE PERCENT (BEAKER) (test 0 % cppl=535) NEUTROPHILS ABSOLUTE COUNT (BEAKER) (test 6.13 K/ L 1.78-5.38 kfka=667) LYMPHOCYTES ABSOLUTE COUNT (BEAKER) (test 0.81 K/ L 1.32-3.57 kkqk=512) MONOCYTES ABSOLUTE COUNT (BEAKER) (test 0.88 K/ L 0.30-0.82 jfuz=026) EOSINOPHILS ABSOLUTE COUNT (BEAKER) (test 0.27 K/ L 0.04-0.54 gatp=058) BASOPHILS ABSOLUTE COUNT (BEAKER) (test 0.03 K/ L 0.01-0.08 bpwj=632) IMMATURE GRANULOCYTES-RELATIVE PERCENT (BEAKER) 1 % 0-1 (test ncpr=3102) TROPONIN [id number] 01:37:00 Test Item Value Reference Range Comments TROPONIN I (BEAKER) (test vwce=800) < ng/mL 0.00-0.03 Troponin I (TnI) levels [...] NATRIURETIC PEPTIDE (BEAKER) (test 1260 pg/mL 0-100 oefg=303) COMPREHENSIVE METABOLIC [id number] 18:56:00 Test Item Value Reference Range Comments TOTAL PROTEIN (BEAKER) 6.6 gm/dL 6.0-8.3 (test lxgb=733) ALBUMIN (BEAKER) (test 3.8 g/dL 3.5-5.0 yzrb=7325) ALKALINE PHOSPHATASE 90 U/L 40-150 (BEAKER) (test xwjp=837) BILIRUBIN TOTAL (BEAKER) 0.8 mg/dL 0.2-1.2 (test fcyc=013) SODIUM (BEAKER) (test 130 meq/L 136-145 lznv=329) POTASSIUM (BEAKER) (test 3.8 meq/L 3.5-5.1 kmai=963) CHLORIDE (BEAKER) (test 96 meq/L 98-107 anlp=069) CO2 (BEAKER) (test 26 meq/L 22-29 lnjg=269) BLOOD UREA NITROGEN 20 mg/dL 7-21 (BEAKER) (test ivhf=801) CREATININE (BEAKER) (test 0.98 mg/dL 0.57-1.25 xkac=897) GLUCOSE RANDOM (BEAKER) 103 mg/dL 70-105 (test vywf=474) CALCIUM (BEAKER) (test 9.3 mg/dL 8.4-10.2 acrk=861) AST (SGOT) (BEAKER) (test 26 U/L 5-34 gvxg=865) ALT (SGPT) (BEAKER) (test 32 U/L 6-55 wjwr=241) EGFR (BEAKER) (test 74 mL/min/1.73 sq m ESTIMATED GFR IS NOT yxjd=7262) ACCURATE CREATININE CLEARANCE IN PREDICTING GLOMERULAR FILTRATION RATE. ESTIMATED GFR IS NOT APPLICABLE FOR DIALYSIS PATIENTS. CBC W/PLT COUNT & AUTO [id number] 18:35:00 Test Item Value Reference Range Comments WHITE BLOOD CELL COUNT (BEAKER) (test jlgk=508) 10.5 K/ L 3.5-10.5 RED BLOOD CELL COUNT (BEAKER) (test pcqx=362) 3.51 M/ L 4.63-6.08 HEMOGLOBIN (BEAKER) (test mvzl=370) 11.1 GM/DL 13.7-17.5 HEMATOCRIT (BEAKER) (test ksum=381) 33.5 % 40.1-51.0 MEAN CORPUSCULAR VOLUME (BEAKER) (test ritv=730) 95.4 fL 79.0-92.2 MEAN CORPUSCULAR HEMOGLOBIN (BEAKER) (test 31.6 pg 25.7-32.2 ljbz=211) MEAN CORPUSCULAR HEMOGLOBIN CONC (BEAKER) (test 33.1 GM/DL 32.3-36.5 ledd=943) RED CELL DISTRIBUTION WIDTH (BEAKER) (test 12.4 % 11.6-14.4 qxnk=344) PLATELET COUNT (BEAKER) (test mpfh=103) 268 K/CU MM 150-450 MEAN PLATELET VOLUME (BEAKER) (test ujyb=531) 9.3 fL 9.4-12.4 NUCLEATED RED BLOOD CELLS (BEAKER) (test 0 /100 WBC 0-0 hbpm=960) NEUTROPHILS RELATIVE PERCENT (BEAKER) (test 75 % seng=195) LYMPHOCYTES RELATIVE PERCENT (BEAKER) (test 9 % aecf=689) MONOCYTES RELATIVE PERCENT (BEAKER) (test 12 % cbxi=316) EOSINOPHILS RELATIVE PERCENT (BEAKER) (test 3 % rqvl=901) BASOPHILS RELATIVE PERCENT (BEAKER) (test 0 % voef=398) NEUTROPHILS ABSOLUTE COUNT (BEAKER) (test 7.89 K/ L 1.78-5.38 cekq=026) LYMPHOCYTES ABSOLUTE COUNT (BEAKER) (test 0.97 K/ L 1.32-3.57 iivm=240) MONOCYTES ABSOLUTE COUNT (BEAKER) (test 1.21 K/ L 0.30-0.82 lusl=230) EOSINOPHILS ABSOLUTE COUNT (BEAKER) (test 0.32 K/ L 0.04-0.54 anau=341) BASOPHILS ABSOLUTE COUNT (BEAKER) (test 0.04 K/ L 0.01-0.08 pzxe=059) IMMATURE GRANULOCYTES-RELATIVE PERCENT (BEAKER) 1 % 0-1 (test pjwy=8931) POCT-GLUCOSE [id number] 17:14:00 Test Item Value Reference Range Comments POC-GLUCOSE METER (BEAKER) 172 mg/dL 70-[address] [facility] [address] (test wlqn=5400) [facility] [id number]
[2019-03-09 06:34] LABS: Absolute Lymphocytes (CBC) 0.9 K/uL (0.7-4.9); Absolute Monocytes 0.9 K/uL (0.1-1.3); Absolute Neutrophil 6.6 K/uL (1.8-8.0); Basophils % 0.7 % (0-1.3); Eosinophils % 4.7 % (0-4.4); Hematocrit 31.4 % (39.6-49.0); Lymphocytes % 9.9 % (15.3-44.8); MPV 8.6 fL (7.6-11.3); Monocytes % 10.4 % (3.3-12.3); Protime INR 1.13; RBC Red Blood Cell Count 3.56 M/uL (4.33-5.43)
[2019-03-09 06:45] LABS: ALT/SGPT 33 U/L (12-78); AST/SGOT 28 U/L (15-37); Albumin 3.4 g/dL (3.4-5.0); Alkaline Phosphatase 142 U/L (45-117); BUN Blood Urea Nitrogen 34 mg/dL (7-18); Bicarbonate 26 mmol/L (21-32); Bilirubin Direct 0.3 mg/dL (0-0.2); Bilirubin Total 0.6 mg/dL (0.2-1.0); Glucose Level 102 mg/dL (74-106); Magnesium 2.2 mg/dL (1.8-2.4); NT PRO-BNP 1104 pg/mL (<450); Potassium 4.6 mmol/L (3.5-5.1); Protein, Total 6.7 g/dL (6.4-8.2); Sodium Level 132 mmol/L (136-145); Troponin (Emerg Dept Use Only) < 0.02 ng/mL (0.0-0.045)
[2019-03-09] MEDS ORDERED: FUROSEMIDE 40 MG/4 ML VIAL ONE (07:23)
--- NOTE | 2019-03-09 07:43 | ER ---
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 he went jd3 to sleep feeling short of breath and woke up feeling worse. no complaint of pain.". Transition of care: patient was not received from another setting of care. Onset of symptoms was March 09, 2019. Risk Assessment: Do you want to hurt yourself or someone else? Patient reports no desire to harm self or others. Initial Sepsis Screen: Does the patient meet any 2 criteria? No. Patient's initial sepsis screen is negative. Does the patient have a suspected source of infection? No. Patient's initial sepsis screen is negative. Care prior to arrival: IV initiated. 20 GA, in the right antecubital area. 06:03 Method Of Arrival: EMS: [facility] jd3 06:03 Acuity: CECILIA 3 jd3 Triage Assessment: 06:19 Respiratory: Onset: The symptoms/episode began/occurred yesterday, the patient has mild jd3 shortness of breath. Historical: - Allergies: 06:14 PENICILLINS; jd3 06:14 Xarelto; jd3 - Home Meds: 06:14 atorvastatin 40 mg Oral tab nightly [Active]; losartan 100 mg Oral tab 1 tab once daily jd3 [Active]; furosemide 40 mg Oral tab 1 tab once daily [Active]; Plavix 75 mg Oral tab 1 tab once daily [Active]; pantoprazole 40 mg Oral TbEC 1 tab once daily [Active]; memantine 5 mg Oral tab 1 tabs daily [Active]; sotalol 80 mg Oral tab 0.5 tabs 2 times per day [Active]; dorzolamide-timolol 22.3-6.8 mg/mL ophthalmic drop 1 drop 2 times per day [Active]; Vitamin C Oral [Active]; Vitamin D3 5,000 unit Oral tab twice a day [Active]; docusate sodium 100 mg Oral cap 1 cap 2 times per day [Active]; polyethylene glycol 3350 17 gram/dose Oral powd once daily [Active]; melatonin 5 mg Oral tab nightly [Active]; Ocuvite oral oral [Active]; Osteo Bi-Flex oral oral [Active]; - PMHx: 06:14 Atrial Fib; Diabetes - NIDDM; Hypertension; jd3 - PSHx: 06: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 - Social history:: Smoking status: Patient/guardian denies using tobacco, but has a distant history of tobacco abuse. - Ebola Screening: : Patient negative for fever greater than or equal to 101.5 degrees Fahrenheit, and additional compatible Ebola Virus Disease symptoms. Screenin:18 Abuse screen: Denies threats or abuse. Nutritional screening: No deficits noted. jd3 Tuberculosis screening: No symptoms or risk factors identified. Fall Risk IV access (20 points). Ambulatory Aid- None/Bed Rest/Nurse Assist (0 pts). Gait- Weak (10 pts.). Mental Status- Oriented to own ability (0 pts). Total Moore Fall Scale indicates No Risk (0-24 pts). Assessment: 06:16 General: Appears in no apparent distress. uncomfortable, Behavior is calm, cooperative, jd3 appropriate for age. Pain: Denies pain. Neuro: Level of Consciousness is awake, alert, obeys commands, Oriented to person, place, time, situation, Appropriate for age. Cardiovascular: Heart tones S1 S2 present Capillary refill < 3 seconds Patient's skin is warm and dry. Rhythm is sinus bradycardia. Respiratory: Reports shortness of breath at rest Airway is patent Respiratory effort is even, unlabored, Respiratory pattern is regular, symmetrical, Breath sounds are clear bilaterally. GI: No signs and/or symptoms were reported involving the gastrointestinal system. : No signs and/or symptoms were reported regarding the genitourinary system. EENT: No signs and/or symptoms were reported regarding the EENT system. Derm: Skin is intact, Skin is dry, Skin is normal, Skin temperature is warm. Musculoskeletal: Circulation, motion, and sensation intact. Range of motion: intact in all extremities. 07:20 Reassessment: Patient appears in no apparent distress at this time. Patient and/or tw2 family updated on plan of care and expected duration. Pain level reassessed. Patient is alert, oriented x 3, equal unlabored respirations, skin warm/dry/pink. 08:04 Reassessment: Patient appears in no apparent distress at this time. Patient and/or tw2 family updated on plan of care and expected duration. Pain level reassessed. Patient is alert, oriented x 3, equal unlabored respirations, skin warm/dry/pink. Vital Signs: 06:15 BP 158 / 62; Pulse 51; Resp 19 S; Temp 97.5(O); Pulse Ox 97% on R/A; Weight 72.12 kg jd3 (R); Height 5 ft. 5 in. (165.10 cm) (R); Pain 0/10; 07:20 BP 165 / 60; Pulse 50; Resp 13; Pulse Ox 98% on R/A; tw2 06:15 Body Mass Index 26.46 (72.12 kg, 165.10 cm) jd3 ED Course: 05:59 Patient arrived in ED. am2 05:59 Ismael Miller MD is Private Physician. am2 06:01 Aditya Marsh, RN is Primary Nurse. jd3 06:05 Triage completed. jd3 06:07 Marshal Ghosh PA is PHCP. cp 06:07 Andriy Rios MD is Attending Physician. cp 06:15 Arm band placed on. EKG completed in triage. Results shown to MD. jd3 06:16 Maintain EMS IV. Dressing intact. Good blood return noted. Site clean \\T\\ dry. Gauge \\T\\ luba 3 site: 20 G right AC. 06:19 Patient has correct armband on for positive identification. Placed in gown. Bed in low jd3 position. Call light in reach. Side rails up X2. 06:27 X-ray completed. Portable x-ray completed in exam room. Patient tolerated procedure kw well. 06:28 XRAY Chest (1 view) In Process Unspecified. EDMS 07:06 Primary Nurse role handed off by Aditya Marsh, ISMA tw2 07:06 Calli De Paz RN is Primary Nurse. tw2 07:38 No provider procedures requiring assistance completed. tw2 08:04 IV discontinued, intact, bleeding controlled, No redness/swelling at site. Pressure tw2 dressing applied. Administered Medications: 07:15 Drug: Lasix 40 mg Route: IVP; Site: right antecubital; tw2 08:15 Follow up: Response: No adverse reaction tw2 Outcome: 07:42 Discharge ordered by . pavel 08:03 Discharged to home ambulatory, with family. tw2 08:03 Condition: stable 08:03 Discharge instructions given to patient, family, Instructed on discharge instructions, follow up and referral plans. Demonstrated understanding of instructions, follow-up care. 08:04 Patient left the ED. tw2 Signatures: Dispatcher [employer] EDMS Cecile Baker Corey, Calli Rodriguez cp, RN RN tw2 Candy Estrada am2 Aditya Marsh RN RN jd3
--- NOTE | 2019-03-09 07:43 | EDPHYS ---
Physician Documentation [facility] Name: Jeb Lubin Sr Age: 78 yrs Sex: Male : 1940 Arrival Date: 03/09/2019 Time: 05:59 Bed 8 Private MD: Ismael Miller T ED Physician Andriy Rios HPI: 03/09 06:15 This 78 yrs old Male presents to ER via EMS with complaints of Shortness Of cp Breath. 06:15 The patient has shortness of breath at rest. Onset: The symptoms/episode began/occurred cp yesterday, and became worse today. Duration: The symptoms are continuous. Associated signs and symptoms: Pertinent negatives: chest pain, productive cough, diaphoresis, dizziness, fever, hemoptysis, vomiting. Severity of symptoms: in the emergency department the symptoms are unchanged. Historical: - Allergies: 06:14 PENICILLINS; jd3 06:14 Xarelto; jd3 - Home Meds: 06:14 atorvastatin 40 mg Oral tab nightly [Active]; losartan 100 mg Oral tab 1 tab once daily jd3 [Active]; furosemide 40 mg Oral tab 1 tab once daily [Active]; Plavix 75 mg Oral tab 1 tab once daily [Active]; pantoprazole 40 mg Oral TbEC 1 tab once daily [Active]; memantine 5 mg Oral tab 1 tabs daily [Active]; sotalol 80 mg Oral tab 0.5 tabs 2 times per day [Active]; dorzolamide-timolol 22.3-6.8 mg/mL ophthalmic drop 1 drop 2 times per day [Active]; Vitamin C Oral [Active]; Vitamin D3 5,000 unit Oral tab twice a day [Active]; docusate sodium 100 mg Oral cap 1 cap 2 times per day [Active]; polyethylene glycol 3350 17 gram/dose Oral powd once daily [Active]; melatonin 5 mg Oral tab nightly [Active]; Ocuvite oral oral [Active]; Osteo Bi-Flex oral oral [Active]; - PMHx: 06:14 Atrial Fib; Diabetes - NIDDM; Hypertension; jd3 - PSHx: 06: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 - Social history:: Smoking status: Patient/guardian denies using tobacco, but has a distant history of tobacco abuse. - Ebola Screening: : Patient negative for fever greater than or equal to 101.5 degrees Fahrenheit, and additional compatible Ebola Virus Disease symptoms. ROS: 06:22 Constitutional: Negative for body aches, chills, fever, poor PO intake. cp 06:22 Eyes: Negative for injury, pain, redness, and discharge. cp 06:22 ENT: Negative for drainage from ear(s), ear pain, sore throat, difficulty swallowing, difficulty handling secretions. 06:22 Cardiovascular: Negative for chest pain, palpitations. 06:22 Respiratory: Positive for shortness of breath, at rest. Negative for cough, wheezing. 06:22 Abdomen/GI: Negative for abdominal pain, nausea, vomiting, and diarrhea, constipation, black/tarry stool, rectal bleeding. 06:22 Back: Negative for pain at rest, pain with movement. 06:22 : Negative for urinary symptoms. 06:22 Skin: Negative for rash. 06:22 Neuro: Negative for altered mental status, dizziness, headache, syncope, weakness. 06:22 All other systems are negative. Exam: 06:20 ECG was reviewed by the Attending Physician. cp 06:25 Constitutional: The patient appears in no acute distress, alert, awake, cp non-diaphoretic, non-toxic, well developed, well nourished. 06:25 Head/Face: Normocephalic, atraumatic. cp 06:25 Eyes: Periorbital structures: appear normal, Conjunctiva: normal, no exudate, no injection, Sclera: no appreciated abnormality, Lids and lashes: appear normal, bilaterally. 06:25 ENT: External ear(s): are unremarkable, Nose: is normal, Mouth: Lips: moist, Oral mucosa: pink and intact, moist, Posterior pharynx: is normal, airway is patent, no erythema, no exudate. 06:25 Neck: ROM/movement: is normal, is supple, without pain, no range of motions limitations, no meningismus, no nuchal rigidity. 06:25 Chest/axilla: Inspection: normal, Palpation: is normal, no crepitus, no tenderness. 06:25 Cardiovascular: Rate: bradycardic, actual rate is 51 bpm, Rhythm: regular, Edema: ankle edema, that is very mild, JVD: is not appreciated. 06:25 Respiratory: the patient does not display signs of respiratory distress, Respirations: labored breathing, is not present, accessory muscle usage, is absent, intercostal retractions, are absent, tachypnea, is not appreciated, Breath sounds: decreased breath sounds, that are mild, stridor, is not appreciated, wheezing: is not appreciated. 06:25 Abdomen/GI: Inspection: abdomen appears normal, Bowel sounds: active, all quadrants, Palpation: abdomen is soft and non-tender, in all quadrants. 06:25 Skin: no rash present. 06:25 Neuro: Orientation: to person, place \T\ time. Mentation: is normal, Cerebellar function: is grossly normal, Motor: moves all fours, strength is normal, Sensation: is normal. Vital Signs: 06:15 BP 158 / 62; Pulse 51; Resp 19 S; Temp 97.5(O); Pulse Ox 97% on R/A; Weight 72.12 kg jd3 (R); Height 5 ft. 5 in. (165.10 cm) (R); Pain 0/10; 07:20 BP 165 / 60; Pulse 50; Resp 13; Pulse Ox 98% on R/A; tw2 06:15 Body Mass Index 26.46 (72.12 kg, 165.10 cm) jd3 MDM: 06:11 Patient medically screened. cp 06:30 Differential diagnosis: CHF exacerbation, Chronic Obstructive Pulmonary Disease cp pneumonia, Pneumothorax pulmonary edema, Pulmonary Embolism Unstable Angina. 07:40 Antibiotic administration: Not indicated, the patient does not have an appreciated cp infiltrate. 07:40 Data reviewed: vital signs, nurses notes, lab test result(s), EKG, radiologic studies, cp plain films, and as a result, I will discharge patient. Test interpretation: by ED physician or midlevel provider: ECG, chest xray negative for focal infiltrates. Counseling: I had a detailed discussion with the patient and/or guardian regarding: the historical points, exam findings, and any diagnostic results supporting the discharge/admit diagnosis, lab results, radiology results, to return to the emergency department if symptoms worsen or persist or if there are any questions or concerns that arise at home. Response to treatment: the patient's symptoms have mildly improved after treatment, and as a result, I will discharge patient. ED course: VSS. No signs of respiratory distress. Patient reports he is feeling better. Will discharge to home for continued monitoring. 03/09 06:06 Order name: Basic Metabolic Panel; Complete Time: 07:00 03/09 07:00 Interpretation: Normal except: NA 132; BUN 34; CRE 1.46; GFR 47. cp 03/09 06:06 Order name: CBC with Diff; Complete Time: 07:00 03/09 07:01 Interpretation: Normal except: RBC 3.56; HGB 10.7; HCT 31.4; MCV 88.4; DAMIEN% 74.3; LYM% cp 9.9; EOSINOPHIL % 4.7. 03/09 06:06 Order name: LFT's; Complete Time: 07:00 03/09 06:06 Order name: Magnesium; Complete Time: 07:00 03/09 06:06 Order name: NT PRO-BNP; Complete Time: 07:00 03/09 06:06 Order name: PT-INR; Complete Time: 07:00 03/09 06:06 Order name: Troponin (emerg Dept Use Only); Complete Time: 07:00 03/09 06:06 Order name: XRAY Chest (1 view) 03/09 06:06 Order name: EKG; Complete Time: 06:09 03/09 06:06 Order name: Cardiac monitoring; Complete Time: 06:07 03/09 06:06 Order name: EKG - Nurse/Tech; Complete Time: 06:19 03/09 06:06 Order name: IV Saline Lock; Complete Time: 06:07 03/09 06:06 Order name: Labs collected and sent; Complete Time: 06:07 03/09 06:06 Order name: O2 Per Protocol; Complete Time: 06:07 03/09 06:06 Order name: O2 Sat Monitoring; Complete Time: 06:07 EC:20 Rate is 49 beats/min. Rhythm is regular. DC interval is normal. QRS interval is normal. cp QT interval is normal. Interpreted by me. Reviewed by me. Administered Medications: 07:15 Drug: Lasix 40 mg Route: IVP; Site: right antecubital; tw2 08:15 Follow up: Response: No adverse reaction tw2 Disposition: 03/09/19 07:42 Discharged to Home. Impression: Unspecified combined systolic (congestive) and diastolic (congestive) heart failure - exacerbation. - Condition is Stable. - Discharge Instructions: Heart Failure. - Medication Reconciliation Form, Thank You Letter, Antibiotic Education, Prescription Opioid Use form. - Follow up: Private Physician; When: 2 - 3 days; Reason: Recheck today's complaints. - Problem is an acute exacerbation. - Symptoms have improved. Signatures: Dispatcher [employer] EDMS Beth Denis RN RN ak1 Marshal Ghosh PA PA cp Calli De Paz RN RN tw2 Aditya Marsh RN RN jd3 Corrections: (The following items were deleted from the chart) 08:04 07:42 03/09/2019 07:42 Discharged to Home. Impression: Unspecified combined systolic tw2 (congestive) and diastolic (congestive) heart failure - exacerbation. Condition is Stable. Forms are Medication Reconciliation Form, Thank You Letter, Antibiotic Education, Prescription Opioid Use. Follow up: Private Physician; When: 2 - 3 days; Reason: Recheck today's complaints. Problem is an acute exacerbation. Symptoms have improved. cp
[2019-03-09 08:31] VITALS: TEMP 97.5
[2019-03-09 08:32] VITALS: BP 165/60; O2SAT 98
--- NOTE | 2019-03-09 08:37 | EKG ---
Test Date: 2019-03-09 Test Time: 06:11:14 Risk Control Product Liability Director: BASIA MEASUREMENT RESULTS: Intervals: Rate: 49 CO: 154 QRSD: 98 QT: 496 QTc: 448 [place]: P: 40 CO: 154 QRS: 19 T: 60 INTERPRETIVE STATEMENTS: Sinus bradycardia Otherwise normal ECG Compared to ECG 10/17/2018 05:02:45 Sinus rhythm no longer present Electronically Signed On 03-09-19 08:36:40 CDT by Abraham Segura
--- NOTE | 2019-03-09 08:47 | RAD REPORT ---
EXAM DESCRIPTION: RAD - Chest Single View - 03/09/2019 6:30 am CLINICAL HISTORY: Cough;Dyspnea Chest pain. COMPARISON: Chest Pa And Lat (2 Views) dated 10/19/2018; Chest Single View dated 10/17/2018; Chest Sing le View dated 09/06/2018; Chest Pa And Lat (2 Views) dated 02/03/2018 FINDINGS: Portable technique limits examination quality. The lungs are grossly clear. Small chronic left pleural effusion versus pleural thickening. The heart is moderately enlarged with sternotomy wires present.
== END 2019-03-09 08:04 | disposition home or self-care (01) ==
LOC: ER 05:51
DX: I50.40 Unspecified combined systolic (congestive) and diastolic (congestive) heart failure (principal); I10 Essential (primary) hypertension; I48.91 Unspecified atrial fibrillation; E11.9 Type 2 diabetes mellitus without complications; Z79.01 Long term (current) use of anticoagulants; Z88.0 Allergy status to penicillin; Z88.8 Allergy status to other drugs, medicaments and biological substances; Z95.1 Presence of aortocoronary bypass graft
CPT/HCPCS: 93005; 85025; 80048; 36415; 83735; 85610; 80076; 84484; 83880; 71045; 96374; 99284; J1940

== ENCOUNTER 2019-04-17 08:26 | Emergency (ER) | payer OTHER ==
--- OUTSIDE RECORDS SUMMARY | 2019-04-17 08:53 | XMS REPORT | Clinical Summary ---
:1940 Author Organization [facility] Address [address] [place] [address] Care Team Providers Name Role Phone Philipp [...] artery disease involving coronary bypass graft of [place] heart 2014 without angina pectoris Peripheral vascular disease Hyperlipidemia Hypertension Aortic stenosis Atrial fibrillation Thyroid disease Carotid artery occlusion Ischemic cardiomyopathy Encounters Date Type Specialty Care Team Description 09/25/2018 Surgery Jhonathan Sharma TAVR / [facility] - MD Rakesh PROC ONLY 09/25/2018 Anesthesia Event Eduardo Thomas MD 09/24/2018 Travel 09/22/2018 Surgery Jhonathan Sharma L CATH & CORONARY MD Rakesh ANGIOS 09/20/2018 Anesthesia Event Gastroenterology Kana Reyna CRNA 09/18/2018 - Hospital Encounter Cardiology [place], Lower GI bleed ( Primary Dx); 09/28/2018 MD Kip Atrial fibrillation, unspecified type (HCC); Carleen Martin MD Coronary artery disease involving coronary bypass graft of [place] heart without angina pectoris; Ivan, Valdez Hyperlipidemia, unspecified hyperlipidemia type; D Essential hypertension; Daniel, Ischemic cardiomyopathy; MD Melissa S/P CABG (coronary artery bypass graft); 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 ( HCC); Aortic valve stenosis, etiology of cardiac valve disease unspecified; Hypervolemia, unspecified hypervolemia type 09/18/2018 Orders Only Internal Medicine Kip Hall MD after 04/16/2018 Family History Medical History Relation Name Comments [...] Taken Blood Pressure 150/67 09/28/2018 11:20 AM BOILER CLEANER Pulse 57 09/28/2018 11:20 AM BOILER CLEANER Temperature 37.1 C (98.8 F) 09/28/2018 11:20 AM BOILER CLEANER Respiratory Rate 17 09/28/2018 11:20 AM BOILER CLEANER Oxygen Saturation 97% 09/28/2018 11:20 AM BOILER CLEANER Inhaled Oxygen Concentration 21% 09/27/2018 8:58 PM BOILER CLEANER Weight 68.6 kg (151 lb 3.2 oz) 09/26/2018 9:10 AM BOILER CLEANER Height 157.5 cm (5' 2") 09/24/2018 4:00 PM BOILER CLEANER Body Mass Index 27.65 09/26/2018 9:10 AM BOILER CLEANER Plan of Treatment Not on file Implants Implanted Type Area Housecleaner Device Shelf Model / Identifier Expiration Serial / Date Lot Patch Periph Vascu-Grd 0.8x8cm [id number] - [id number] Tissue N/A: [employer] 05/03/2023 [id number] / Implanted: Qty: 1 on 09/25/2018 by Jhonathan Sharma MD Graft/Subs Aorta TECH:SURG INNOV / titute [id number] Valve Heart Malcolm 3 23mm [id number] Valves N/A: [employer] 05/07/2020 [id number] / Implanted: Qty: 1 on 09/25/2018 by Jhonathan Sharma MD Aorta [id number] / Procedures Procedure Name Priority Date/Time Associated Diagnosis Comments VASCULAR DIAGRAM 11/10/2018 8:32 -SCAN AM BOILER CLEANER CARDIAC CATH REPORT - 10/16/2018 9:00 SCAN AM BOILER CLEANER RHYTHM STRIP - SCAN 10/16/2018 9:00 AM BOILER CLEANER POCT-GLUCOSE METER Routine 09/28/2018 11:16 Results for AM BOILER CLEANER this procedure are in the results section. POCT-GLUCOSE METER Routine 09/28/2018 9:07 Results for AM BOILER CLEANER this procedure are in the results section. CBC W/PLT COUNT & Routine 09/28/2018 3:41 Results for AUTO DIFFERENTIAL AM BOILER CLEANER this procedure are in the results section. MAGNESIUM Routine 09/28/2018 3:41 Results for AM BOILER CLEANER this procedure are in the results section. BASIC METABOLIC PANEL Routine 09/28/2018 3:41 Results for (7) AM BOILER CLEANER this procedure are in the results section. CBC W/PLT COUNT & Routine 09/28/2018 3:41 Results for AUTO DIFFERENTIAL AM BOILER CLEANER this procedure are in the results section. ECHOCARDIOGRAM REPORT 09/27/2018 2:50 - SCAN PM BOILER CLEANER 2D ECHO W/ DOPPLER NANCY 09/27/2018 12:00 Results for (CW/PW/COLOR) PM BOILER CLEANER this procedure are in the results section. CBC W/PLT COUNT & Routine 09/27/2018 3:04 Results for AUTO DIFFERENTIAL AM BOILER CLEANER this procedure are in the results section. MAGNESIUM Routine 09/27/2018 3:04 Results for AM BOILER CLEANER this procedure are in the results section. BASIC METABOLIC PANEL Routine 09/27/2018 3:04 Results for (7) AM BOILER CLEANER this procedure are in the results section. CBC W/PLT COUNT & Routine 09/27/2018 3:04 Results for AUTO DIFFERENTIAL AM BOILER CLEANER this procedure are in the results section. TRANSFUSION SERVICE 09/26/2018 5:53 REPORT - SCAN PM BOILER CLEANER MAGNESIUM NANCY 09/26/2018 9:23 Results for AM BOILER CLEANER this procedure are in the results section. BASIC METABOLIC PANEL NANCY 09/26/2018 9:23 Results for (7) AM BOILER CLEANER this procedure are in the results section. CBC W/PLT COUNT & STAT 09/26/2018 3:06 Results for AUTO DIFFERENTIAL AM BOILER CLEANER this procedure are in the results section. CBC W/PLT COUNT & STAT 09/26/2018 3:06 Results for AUTO DIFFERENTIAL AM BOILER CLEANER this procedure are in the results section. ECG 12-LEAD Routine 09/25/2018 11:59 Results for PM BOILER CLEANER this procedure are in the results section. PREPARE LEUKO-REDUCED Routine 09/25/2018 6:40 Results for RBC PM BOILER CLEANER this procedure are in the results section. PREPARE LEUKO-REDUCED STAT 09/25/2018 6:22 Results for RBC PM BOILER CLEANER this procedure are in the results section. TISSUE EXAM AP Routine 09/25/2018 6:08 Results for PM BOILER CLEANER this procedure are in the results section. POCT-ACT Routine 09/25/2018 5:40 Results for PM BOILER CLEANER this procedure are in the results section. POCT-ACT Routine 09/25/2018 5:05 Results for PM BOILER CLEANER this procedure are in the results section. HGB/HCT (H&H) - STAT STAT 09/25/2018 4:58 Results for LAB PM BOILER CLEANER this procedure are in the results section. GLUCOSE-STAT LAB STAT 09/25/2018 4:58 Results for PM BOILER CLEANER this procedure are in the results section. POTASSIUM-STAT LAB STAT 09/25/2018 4:58 Results for PM BOILER CLEANER this procedure are in the results section. SODIUM NA-STAT LAB STAT 09/25/2018 4:58 Results for PM BOILER CLEANER this procedure are in the results section. BLOOD GAS, ARTERIAL STAT 09/25/2018 4:58 Results for PM BOILER CLEANER this procedure are in the results section. RRL CRITICAL LABS STAT 09/25/2018 4:58 Results for (ABG,NA,K,H&H,GLUCOSE PM BOILER CLEANER this procedure ) are in the results section. POCT-ACT Routine 09/25/2018 4:06 Results for PM BOILER CLEANER this procedure are in the results section. TAVR / JANE MCR - 09/25/2018 2:20 Atherosclerosis of IP PROC ONLY PM BOILER CLEANER [place] coronary artery of [place] heart, angina presence unspecified Case Notes 2435 CV ANESTHESIA / LUKASZ. 1230mGy CONT WAVE PULSED Routine 09/25/2018 12:01 DOPPLER PM BOILER CLEANER COLOR-FLOW MAPPING Routine 09/25/2018 12:01 PM BOILER CLEANER TYPE AND SCREEN, Routine 09/25/2018 6:12 Results for this AUTOMATED AM BOILER CLEANER procedure are in the results section. BASIC METABOLIC Routine 09/25/2018 6:12 Results for this PANEL (7) AM BOILER CLEANER procedure are in the results section. CBC (HEMOGRAM ONLY) Routine 09/25/2018 6:12 Results for this AM BOILER CLEANER procedure are in the results section. URINALYSIS W/ REFLEX Routine 09/24/2018 12:43 Results for this URINE CULTURE PM BOILER CLEANER procedure are in the results section. BASIC METABOLIC Routine 09/24/2018 5:34 Results for this PANEL (7) AM BOILER CLEANER procedure are in the results section. CBC (HEMOGRAM ONLY) Routine 09/24/2018 5:34 Results for this AM BOILER CLEANER procedure are in the results section. POCT-GLUCOSE METER Routine 09/23/2018 6:04 Results for this PM BOILER CLEANER procedure are in the results section. POCT-GLUCOSE METER Routine 09/23/2018 1:04 Results for this PM BOILER CLEANER procedure are in the results section. US CHEST NANCY 09/23/2018 11:17 Results for this AM BOILER CLEANER procedure are in the results section. CBC W/PLT COUNT & STAT 09/23/2018 4:35 Results for this AUTO DIFFERENTIAL AM BOILER CLEANER procedure are in the results section. MAGNESIUM Routine 09/23/2018 4:35 Results for this AM BOILER CLEANER procedure are in the results section. CBC (HEMOGRAM ONLY) Routine 09/23/2018 4:35 Results for this AM BOILER CLEANER procedure are in the results section. BASIC METABOLIC Routine 09/23/2018 4:35 Results for this PANEL (7) AM BOILER CLEANER procedure are in the results section. APTT STAT 09/23/2018 4:35 Results for this AM BOILER CLEANER procedure are in the results section. PROTHROMBIN TIME/INR STAT 09/23/2018 4:35 Results for this AM BOILER CLEANER procedure are in the results section. CBC W/PLT COUNT & STAT 09/23/2018 4:35 Results for this AUTO DIFFERENTIAL AM BOILER CLEANER procedure are in the results section. MAGNESIUM STAT 09/23/2018 4:35 Results for this AM BOILER CLEANER procedure are in the results section. BASIC METABOLIC STAT 09/23/2018 4:35 Results for this PANEL (7) AM BOILER CLEANER procedure are in the results section. POCT-GLUCOSE METER Routine 09/22/2018 9:32 Results for this PM BOILER CLEANER procedure are in the results section. POCT-GLUCOSE METER Routine 09/22/2018 5:22 Results for this PM BOILER CLEANER procedure are in the results section. MAGNESIUM STAT 09/22/2018 4:51 Results for this PM BOILER CLEANER procedure are in the results section. BASIC METABOLIC STAT 09/22/2018 4:51 Results for this PANEL (7) PM BOILER CLEANER procedure are in the results section. POCT-GLUCOSE METER Routine 09/22/2018 12:56 Results for this PM BOILER CLEANER procedure are in the results section. L CATH & CORONARY 09/22/2018 7:30 Atherosclerosis of ANGIOS AM BOILER CLEANER [place] coronary artery, angina presence unspecified, unspecified whether [place] or transplanted heart Case Notes (1) CASE 2435 POCT-GLUCOSE METER Routine 09/21/2018 9:35 PM BOILER CLEANER POCT-GLUCOSE METER Routine 09/21/2018 5:[address]/CTA ABDOMEN & PELVIS Routine 09/21/2018 12:[address]/CTA CHEST Routine 09/21/2018 12:03 PM BOILER CLEANER ARTERIAL DOPPLER LEGS NANCY 09/21/2018 8:51 AM BOILER CLEANER Results for this BILATERAL procedure are in the results section. CAROTID DOPPLER BILATERAL NANCY 09/21/2018 8:51 AM BOILER CLEANER BASIC METABOLIC PANEL (7) Routine 09/21/2018 5:37 AM BOILER CLEANER POCT-GLUCOSE METER Routine 09/20/2018 9:22 PM BOILER CLEANER ECG 12-LEAD NANCY 09/20/2018 9:16 PM BOILER CLEANER XR CHEST 1 VIEW STAT 09/20/2018 8:19 PM BOILER CLEANER Results for this PORTABLE/BEDSIDE procedure are in the results section. POCT-GLUCOSE METER Routine 09/20/2018 4:47 PM BOILER CLEANER POCT-GLUCOSE METER Routine 09/20/2018 1:50 PM BOILER CLEANER POCT-GLUCOSE METER Routine 09/20/2018 8:18 AM BOILER CLEANER BASIC METABOLIC PANEL (7) Routine 09/20/2018 4:42 AM BOILER CLEANER POCT-GLUCOSE METER Routine 09/19/2018 10:51 PM BOILER CLEANER POCT-GLUCOSE METER Routine 09/19/2018 6:02 PM BOILER CLEANER ECHOCARDIOGRAM REPORT - SCAN 09/19/2018 5:50 PM BOILER CLEANER ECHO W CONTRAST & DOPPLER NANCY 09/19/2018 2:01 PM BOILER CLEANER HEMOGLOBIN A1C Routine 09/19/2018 9:45 AM BOILER CLEANER POCT-GLUCOSE METER Routine 09/19/2018 8:20 AM BOILER CLEANER CBC W/PLT COUNT & AUTO Routine 09/19/2018 6:01 AM BOILER CLEANER Results for this DIFFERENTIAL procedure are in the results section. TROPONIN I Routine 09/19/2018 6:01 AM BOILER CLEANER CBC W/PLT COUNT & AUTO Routine 09/19/2018 6:01 AM BOILER CLEANER Results for this DIFFERENTIAL procedure are in the results section. BASIC METABOLIC PANEL (7) Routine 09/19/2018 6:01 AM BOILER CLEANER TROPONIN I Routine 09/18/2018 11:53 PM BOILER CLEANER CBC W/PLT COUNT & AUTO Routine 09/18/2018 6:15 PM BOILER CLEANER Results for this DIFFERENTIAL procedure are in the results section. B-TYPE NATRIURETIC FACTOR Routine 09/18/2018 6:15 PM BOILER CLEANER Results for this (BNP) procedure are in the results section. COMPREHENSIVE METABOLIC Routine 09/18/2018 6:15 PM BOILER CLEANER Results for this PANEL procedure are in the results section. CBC W/PLT COUNT & AUTO Routine 09/18/2018 6:15 PM BOILER CLEANER Results for this DIFFERENTIAL procedure are in the results section. POCT-GLUCOSE METER Routine 09/18/2018 5:10 PM BOILER CLEANER after 04/16/2018 Results VASCULAR DIAGRAM -SCAN (11/10/2018 8:32 AM BOILER CLEANER) Narrative Performed At CARDIAC CATH REPORT - SCAN (10/16/2018 9:00 AM BOILER CLEANER) Narrative Performed At RHYTHM STRIP - SCAN (10/16/2018 9:00 AM BOILER CLEANER) Narrative Performed At POC-Glucose meter (09/28/2018 11:16 AM BOILER CLEANER)Only the most recent of17 resultswithin the time period is included. POC-Glucose Meter 326 (H)Comment: TESTED AT 70 - 110 mg/dL [facility] [address] [facility] [address] Specimen Blood Performing Organization Address City/State/Zipcode Phone Number [place] [phone] [place] [address] [phone] CENTER CBC with platelet count + automated diff (09/28/2018 3:41 AM BOILER CLEANER)Only the most recent of6 resultswithin the time period is included. WBC 9.4 3.5 - 10.5 K/L [facility] RBC 2.67 (L) 4.63 - 6.08 M/L [facility] Hemoglobin 8.4 (L) 13.7 - 17.5 GM/DL [facility] Hematocrit 25.7 (L) 40.1 - 51.0 % [facility] MCV 96.3 (H) 79.0 - 92.2 fL [facility] MCH 31.5 25.7 - 32.2 pg [facility] MCHC 32.7 32.3 - 36.5 GM/DL [facility] RDW 12.4 11.6 - 14.4 % [facility] Platelets 213 150 - 450 K/CU MM [facility] MPV 9.9 9.4 - 12.4 fL [facility] nRBC 0 0 - 0 /100 WBC [facility] % Neutros 70 % [facility] % Lymphs 12 % [facility] % Monos 12 % [facility] % Eos 5 % [facility] % Baso 1 % [facility] # Neutros 6.50 (H) 1.78 - 5.38 K/L [facility] # Lymphs 1.10 (L) 1.32 - 3.57 K/L [facility] # Monos 1.16 (H) 0.30 - 0.82 K/L [facility] # Eos 0.49 0.04 - 0.54 K/L [facility] # Baso 0.05 0.01 - 0.08 K/L [facility] Immature Granulocytes-Relative 1 0 - 1 % [facility] Specimen Blood Performing Organization Address City/State/Zipcode Phone Number [facility] [address] [place] [address] [phone] CENTER Magnesium (09/28/2018 3:41 AM BOILER CLEANER)Only the most recent of6 resultswithin the time period is included. Magnesium 1.6 1.6 - 2.6 mg/dL [facility] Specimen Blood Performing Organization Address City/[facility]/Zipcode Phone Number [address] [address] [place] Basic Metabolic Panel (09/28/2018 3:41 AM BOILER CLEANER)Only the most recent of11 resultswithin the time period is included. Sodium 138 136 - 145 meq/L [facility] Potassium 3.6 3.5 - 5.1 meq/L [facility] Chloride 103 98 - 107 meq/L [facility] CO2 27 22 - 29 meq/L [facility] BUN 30 (H) 7 - 21 mg/dL [facility] Creatinine 1.04 0.57 - 1.25 mg/dL [facility] Glucose 115 (H) 70 - 105 mg/dL [facility] Calcium 8.8 8.4 - 10.2 mg/dL [facility] EGFR 69Comment: ESTIMATED GFR IS mL/min/1.[address] [facility] BCM NOT ACCURATE [facility] CLEARANCE IN PREDICTING GLOMERULAR FILTRATION RATE. ESTIMATED GFR IS NOT APPLICABLE FOR DIALYSIS PATIENTS. Specimen Blood Performing Organization Address City/State/Zipcode Phone Number [facility] [address] [place] [address] [phone] CENTER ECHOCARDIOGRAM REPORT - SCAN (09/27/2018 2:50 PM BOILER CLEANER) Narrative Performed At 2D Echo W/Doppler(CW/PW/Color) (09/27/2018 12:00 PM BOILER CLEANER) Ejection Fraction [facility] Specimen Narrative Performed At Transthoracic Echocardiography Report (TTE) [facility] Demographics Patient NameALVA LUBIN Date of Study09/27/2018 SR. Gender Male Visit [id number] Race [id number] Number Date of 1940 ReferringHernan Baron Physician Age 78 year(s) SonographYonathan Cifuentes [facility] Photography Assistant Ju BenitezInterpreting Physician ALANNA Chavez Procedure Type [...] External Ris In - 09/27/2018 2:08 PM BOILER CLEANER Transthoracic Echocardiography Report (TTE) Demographics Patient Name ALVA LUBIN Date of Study 09/27/2018 SR. Gender Male Visit Number [id number] Race Room Number C633 Number Date of 1940 Referring Hernan Baron Physician Age 78 year(s) Nursing Resident Bryce Cifuentes [facility] Photography Assistant Ju Benitez Interpreting Alexander Tamez Physician Procedure [...] TR Gradient: 30.04 mmHg Performing Organization Address [facility] Phone Number [facility] CPACS TRANSFUSION SERVICE REPORT - SCAN (09/26/2018 5:53 PM BOILER CLEANER) Narrative Performed At ECG 12 lead (09/25/2018 11:59 PM BOILER CLEANER)Only the most recent of2 resultswithin the time period is included. Specimen Narrative Performed At Ventricular Rate 59 BPM GE MUSE Atrial Rate 59 BPM P-R Interval 138 ms QRS Duration 96 ms Q-T Interval 476 ms QTC Calculation(Bazett) 471 ms P [place] 52 degrees R [place] 23 degrees T [place] 244 degrees Sinus bradycardiawith sinus arrhythmia Mild ST elevation in aVR + ST depression inferolateral leads consider subendocardial ischemia Prolonged QT Abnormal ECG When compared with ECG of 20-SEP-2018 21:16, Sinus arrhythmia now seen Confirmed by MD YANET, FAISAL ([id number]) on 09/26/2018 6:34:11 AM Procedure Note Interface, External Ris In - 09/26/2018 6:34 AM BOILER CLEANER Ventricular Rate 59 BPM Atrial Rate 59 BPM P-R Interval 138 ms QRS Duration 96 ms Q-T Interval 476 ms QTC Calculation(Bazett) 471 ms P [place] 52 degrees R [place] 23 degrees T [place] 244 degrees Sinus bradycardia with sinus arrhythmia Mild ST elevation in aVR + ST depression inferolateral leads consider subendocardial ischemia Prolonged QT Abnormal ECG When compared with ECG of 20-SEP-2018 21:16, Sinus arrhythmia now seen Confirmed by MD HOLT YOCHAI ([id number]) on 09/26/2018 6:34:11 AM Performing Organization Address [facility] Phone Number [email or web address] MUSE Prepare Leuko-Red RBC (09/25/2018 6:40 PM BOILER CLEANER)Only the most recent of2 resultswithin the time period is included. CROSSMATCH COMPATIBLE SAFETRACE TX Unit ABO O Pos SAFETRACE TX UNIT NUMBER [id number] SAFETRACE TX Status READY SAFETRACE TX Blood Bank Product RED BLOOD CELLS SAFETRACE TX PRODUCT CODE [id number] SAFETRACE TX CROSSMATCH COMPATIBLE SAFETRACE TX Unit ABO O Pos SAFETRACE TX UNIT NUMBER [id number] SAFETRACE TX Status READY SAFETRACE TX Blood Bank Product RED BLOOD CELLS SAFETRACE TX PRODUCT CODE [id number] SAFETRACE TX Specimen Other Performing Organization Address City/[facility] Phone Number SAFETRACE TX Tissue Exam (09/25/2018 6:08 PM BOILER CLEANER) Case Report Surgical Pathology Report Case: [id number] [facility] Authorizing Provider:Jhonathan Sharma MD Collected: 09/25/2018 1808 [facility] Ordering Location: [address] Received: 09/26/2018926 Service Pathologist: Haris Jeter MD Specimen:Plaque, arterial plaque DIAGNOSIS ARTERY, LEFT FEMORAL, ENDARTERECTOMY: [facility] CALCIFIC ATHEROSCLEROTIC PLAQUE [facility] Signing Pathologist Direct Phone Line: [phone] CPT Code(s) 05713; 20744 [facility] CLINICAL HISTORY Left femoral artery plaque [facility] SPECIMEN SOURCE Arterial plaque [facility] GROSS DESCRIPTION The specimen is received in [facility] saline labeled with the [facility] patient's information labeled "arterial plaque" and consists of previously opened calcified segment of tissue measuring 2.5 cm in length x 0.5 cm in circumference. Store Team Leader sections are submitted A1 for decalcification. CG/pl INTRAOPERATIVE CONSULTATION [facility] MICROSCOPIC DESCRIPTION Performed [facility] Specimen Tissue Performing Organization Address City/[facility] Phone Number [address] [address] CENTER POC ACTIVATED CLOTTING TIME (09/25/2018 5:40 PM BOILER CLEANER)Only the most recent of3 resultswithin the time period is included. Activated Clotting Time 131Comment: TESTED AT sec [facility] [address] [facility] [address] Specimen Blood Performing Organization Address City/[facility]/Zipcode Phone Number [facility] [address] [address] [phone] [place] Potassium-Stat Lab (09/25/2018 4:58 PM BOILER CLEANER) Potassium 4.1 3.6 - 5.5 meq/L [facility] Specimen Blood, Arterial Performing Organization Address [facility] Phone Number [address] [address] [phone] [place] Sodium Na-Stat Lab (09/25/2018 4:58 PM BOILER CLEANER) Sodium 132 (L) 135 - 148 meq/L [facility] Specimen Blood, Arterial Performing Organization Address [facility] Phone Number [address] [address] [phone] [place] Glucose-Stat Lab (09/25/2018 4:58 PM BOILER CLEANER) Glucose 104 70 - 110 mg/dL [facility] Specimen Blood, Arterial Performing Organization Address [facility] Phone Number [address] [address] [place] HGB/HCT (H&H)-Stat Lab (09/25/2018 4:58 PM BOILER CLEANER) Hemoglobin 11.2 (L) 13.0 - 16.8 g/dL [facility] Hematocrit 33.0 (L) 40.0 - 50.0 % [facility] Specimen Blood, Arterial Performing Organization Address [facility] Phone Number [address] [address] [phone] [place] Blood gas, arterial (09/25/2018 4:58 PM BOILER CLEANER) pH, Arterial 7.36 7.35 - 7.45 [facility] pCO2, Arterial 49 (H) 35 - 45 mmHg [facility] pO2, Arterial 119 (H) 80 - 90 mmHg [facility] O2 Sat, Arterial 98.3 (H) 96.0 - 97.0 % [facility] HCO3, Arterial 28 21 - 29 mmol/L [facility] Base Excess, Arterial 1.2 -2.0 - 3.0 mmol/L [facility] Patient Temperature 35.4 C [facility] FIO2 30.0 % [facility] Specimen Blood, Arterial Performing Organization Address [facility] Phone Number [address] [address] [phone] CENTER Type and screen, automated (09/25/2018 6:12 AM BOILER CLEANER) ABO/RH AUTOMATED (BEAKER) O POSITIVE [facility] [place] Ab Scrn NEGATIVE [facility] [place] Specimen Blood Performing Organization Address City/[facility] Phone Number [facility] [place] [address] [place] [address] CBC (Hemogram only) (09/25/2018 6:12 AM BOILER CLEANER)Only the most recent of3 resultswithin the time period is included. WBC 10.4 3.5 - 10.5 K/L [facility] RBC 3.34 (L) 4.63 - 6.08 M/L [facility] Hemoglobin 10.6 (L) 13.7 - 17.5 GM/DL [facility] Hematocrit 32.7 (L) 40.1 - 51.0 % [facility] MCV 97.9 (H) 79.0 - 92.2 fL [facility] MCH 31.7 25.7 - 32.2 pg [facility] MCHC 32.4 32.3 - 36.5 GM/DL [facility] RDW 12.4 11.6 - 14.4 % [facility] Platelets 248 150 - 450 K/CU MM [facility] [facility] MPV 9.4 9.4 - 12.4 fL [facility] nRBC 0 0 - 0 /100 WBC [facility] Specimen Blood Performing Organization Address City/[facility]/Zipcode Phone Number [facility] [address] [place], [place] [phone] [place] Urinalysis w/Microscopic + Reflex to Culture (09/24/2018 12:43 PM BOILER CLEANER) Color, UA Light Yellow [facility] Clarity, UA Clear [facility] Specific [place], UA 1.006 1.001 - 1.035 [facility] pH, UA 7.0 5.0 - 8.0 [facility] Protein, UA Negative Negative [facility] Glucose, UA Negative Negative [facility] Ketones, UA Negative Negative [facility] Bilirubin, UA Negative Negative [facility] Blood, UA Negative Negative [facility] Nitrite, UA Negative Negative [facility] Leukocytes, UA Negative Negative [facility] Urobilinogen, UA 0.2 0.2 - 1.0 mg/dL [facility] RBC, UA <1 /HPF [facility] WBC, UA <1 /HPF [facility] Specimen Source [facility] Specimen Urine Performing Organization Address City/[facility]/Zipcode Phone Number [facility] [address] [place] [address] [place] US chest (09/23/2018 11:17 AM BOILER CLEANER) Specimen Narrative Performed At FINAL REPORT Kids Note INDICATION: Left pleural effusion Limited left chest ultrasound. IMPRESSION: Ultrasound examination of the left chest was performed in preparation for left thoracentesis. However, only trace amount of fluid is seen in the left pleural space, not amenable for safe drainage. Thoracentesis is therefore not performed. Signed: Reyes Guardaod MD Report Verified Date/Time:09/23/2018 11:20:35 Reading Location: [facility] [id number] Ortho Consult Reading Room Procedure Note Interface, External Ris In - 09/23/2018 11:22 AM BOILER CLEANER FINAL REPORT INDICATION: Left pleural effusion Limited left chest ultrasound. IMPRESSION: Ultrasound examination of the left chest was performed in preparation for left thoracentesis. However, only trace amount of fluid is seen in the left pleural space, not amenable for safe drainage. Thoracentesis is therefore not performed. Signed: Reyes Guardado MD Report Verified Date/Time: 09/23/2018 11:20:35 Reading Location: [facility] [id number] Ortho Consult Reading Room Performing Organization Address City/[facility] Phone Number GE RIS aPTT (09/23/2018 4:35 AM BOILER CLEANER) PTT 31.6 22.5 - 36.0 seconds [facility] Specimen Blood Performing Organization Address [facility] Hospitalconv Phone Number [place] [phone] [place] [address] [phone] CENTER Prothrombin time/INR (09/23/2018 4:35 AM BOILER CLEANER) Protime 14.7 11.7 - 14.7 seconds [facility] INR 1.2 <=5.9 [facility] Specimen Blood Narrative Performed At RECOMMENDED COUMADIN/WARFARIN INR THERAPY [facility] RANGES STANDARD DOSE: 2.0 - 3.0 Includes: PROPHYLAXIS for venous thrombosis, systemic embolization; TREATMENT for venous thrombosis and/or pulmonary embolus. HIGH RISK: Target INR is 2.5-3.5 for patients with mechanical heart valves. Performing Organization Address City/[facility] Hospitalcode Phone Number [facility] [address] [place] [address] CENTER CTA chest (09/21/2018 12:03 PM BOILER CLEANER) Specimen Narrative Performed At Addendum Begins [employer] [facility] REPORT STATUS:A Addendum: There is increased density visualized in the left pleural fluid collection. Clinical correlation is needed if an inflammatory or hemorrhagic process is suspected. I agree with the previously described non vascular findings. Signed: Dorota Russell MD Report Verified Date/Time:09/21/2018 14:55:20 Reading Location: [facility] P048 Angio Body Reading Room Addendum Ends [...] artery have increased calcific atherosclerosis seen with sjfd-ks-dtuqpvpz lesion identified. The right common femoral artery [...] 5.An addendum will be dictated by the Bin Cleaner Radiologist regarding the nonvascular findings. Signed: Shawn Barnes MD Report Verified Date/Time:09/21/2018 14:01:54 Reading Location: [place] [address] Cardiology MRI Procedure Note Interface, External Ris In - 09/21/2018 2:57 PM BOILER CLEANER Addendum Begins REPORT STATUS:A Addendum: There is increased density visualized in the left pleural fluid collection. Clinical correlation is needed if an inflammatory or hemorrhagic process is suspected. I agree with the previously described non vascular findings. Signed: Dorota Russell MD Report Verified Date/Time: 09/21/2018 14:55:20 Reading Location: [place] [id number] Angio Body Reading Room Addendum Ends FINAL [...] artery have increased calcific atherosclerosis seen with gtwi-jk-ikrslphl lesion identified. The right common femoral artery [...] An addendum will be dictated by the Bin Cleaner Radiologist regarding the nonvascular findings. Signed: Shawn Barnes MD Report Verified Date/Time: 09/21/2018 14:01:54 Reading Location: [place] [address] Cardiology MRI Performing Organization Address City/State/Zipcode Phone Number Kids Note CTA abdomen & pelvis (09/21/2018 12:03 PM BOILER CLEANER) Specimen Narrative Performed At Addendum Begins Kids Note REPORT STATUS:A Addendum: There is increased density visualized in the left pleural fluid collection. Clinical correlation is needed if an inflammatory or hemorrhagic process is suspected. I agree with the previously described non vascular findings. Signed: Dorota Russell MD Report Verified Date/Time:09/21/2018 14:55:20 Reading Location: [facility] P048 Angio Body Reading Room Addendum Ends [...] artery have increased calcific atherosclerosis seen with dpbt-ma-flfdasbg lesion identified. The right common femoral artery [...] 5.An addendum will be dictated by the Bin Cleaner Radiologist regarding the nonvascular findings. Signed: Shawn Barnes MD Report Verified Date/Time:09/21/2018 14:01:54 Reading Location: [facility] P047 Cardiology MRI Procedure Note Interface, External Ris In - 09/21/2018 2:57 PM BOILER CLEANER Addendum Begins REPORT STATUS:A Addendum: There is increased density visualized in the left pleural fluid collection. Clinical correlation is needed if an inflammatory or hemorrhagic process is suspected. I agree with the previously described non vascular findings. Signed: Dorota Russell MD Report Verified Date/Time: 09/21/2018 14:55:20 Reading Location: [place] [id number] Angio Body Reading Room Addendum Ends FINAL [...] artery have increased calcific atherosclerosis seen with fngx-xt-vvsvvgaj lesion identified. The right common femoral artery [...] An addendum will be dictated by the Bin Cleaner Radiologist regarding the nonvascular findings. Signed: Shawn Barnes MD Report Verified Date/Time: 09/21/2018 14:01:54 Reading Location: [place] [address] Cardiology MRI Performing Organization Address City/State/Zipcode Phone Number Kids Note Arterial doppler legs bilateral (09/21/2018 8:51 AM BOILER CLEANER) Ejection Fraction [facility] MKNetroundsESSON CPA Specimen Impressions Performed At Right Impression [facility] MKCKESSON [facility] 1. The common femoral is patent [...] + + + + + + !Prox GATE SERVICES SUPERVISOR ! !! !Absent ! !! !Absent ! + + + + + + + + + + !Mid GATE SERVICES SUPERVISOR ! !12.4! !Monophasic ! !! !Absent ! + + + + + + + + + + !Dist GATE SERVICES SUPERVISOR ! !! !Absent ! !! !Absent ! [...] PV LAB - Lower Extremity Arterial Duplex [facility] MKCKESSON [facility] Demographics Patient Name ALVA LUBIN Date of Study09/21/2018 SR. [id number] Age78 Visit Number [id number] Gender Male Accession Number [id number] Date of Birth1940 [facility] [id number] Physician SonographMiguel Hill.Interpreting Ju Goldsmith RVT, PRITI [...] External Ris In - 09/22/2018 7:23 AM BOILER CLEANER PV LAB - Lower Extremity Arterial Duplex Demographics Patient Name ALVA LUBIN Date of Study 09/21/2018 SR. Age 78 Visit Number [id number] Gender Male Accession Number [id number] Date of 1940 Referring Hernan Baron Room Number 2435 Physician Nursing Resident Rishi Hill. Interpreting Ju Goldsmith, RVT, ARDMS [...] + + + +-------- ---------+ + !Prox GATE SERVICES SUPERVISOR ! ! ! !Absent ! ! ! !Absent ! + + + ------+ + + + +-------- ---------+ + !Mid GATE SERVICES SUPERVISOR ! !12.4 ! !Monophasic ! ! ! !Absent ! + + + ------+ + + + +-------- ---------+ + !Dist GATE SERVICES SUPERVISOR ! ! ! !Absent ! ! ! [...] + Performing Organization Address City/State/Zipcode Phone Number [facility] Carotid doppler bilateral (09/21/2018 8:51 AM BOILER CLEANER) Ejection Fraction [facility] MongoHQ [facility]roundsCOMM[facility] Specimen Impressions Performed At Right Impression [facility] Sprig [facility] 1. There is 50-69% diameter [...] At PV LAB - Carotid Duplex Study [facility] MKCKESSON [facility] Demographics Patient Name ALVA LUBIN Date of Study 09/21/2018 SR. [id number] Age 78 Visit Number [id number] GenderMale Accession Number [id number] Date of 1940 Cheri MONDRAGON TyroRoom Number 4120 Physician SonographMiguel Hill.Maurice Goldsmith Qiana, [facility] Physician Procedure Type of Study: Cerebral: Carotid, CAROTID DOPPLER, BILATERAL. Indications for Study:TAVR workup . Patient Status:NANCY. Study Location:Vascular Lab. Technical Quality:Technically Difficult. Risk Factors History of Disease +---------+----+ + !Diagnosis!Date!Comments ! +---------+----+ + !Other!!a-fib, hdl, ht, cad, cad, pad ! +---------+----+ + Procedure Note Interface, External Ris In - 09/22/2018 7:24 AM [facility] PV LAB - Carotid Duplex Study Demographics Patient Name ALVA LUBIN Date of Study 09/21/2018 SR. Age 78 Visit Number [id number] Gender Male Accession Number [id number] Date of 1940 Referring Hernan Baron Room Number 6675 Physician Nursing Resident Rishi Hill. Interpreting Ju Goldsmith, MIHAIT, ARDMS [...] Additional Measurements:ICAPSV/CCAPSV 1.65.ICAEDV/CCAEDV 1.76. Performing Organization Address [facility] Hospitalcode Phone Number [facility] MKCKESSON CPACS XR chest 1 view portable / bedside (09/20/2018 8:19 PM BOILER CLEANER) Specimen Narrative Performed At FINAL REPORT Kids Note Chest one view AP 09/20/2018 8:32 PM CLINICAL INDICATION: SOB COMPARISON: 07/30/2015 IMPRESSION: There are trace right and small volume pleural effusions. Bibasilar opacities suggest atelectasis. Pneumonia should be excluded clinically. The cardiac silhouette is prominent, but stable. The central pulmonary vasculature is not engorged. Cardiac support hardware is unchanged in position. Signed: Ramses Keith MD Report Verified Date/Time:09/20/2018 20:32:40 Reading Location: [facility] Radiology Reading Room Procedure Note Interface, External Ris In - 09/20/2018 9:20 PM BOILER CLEANER FINAL REPORT Chest one view AP 09/20/2018 [...] Report Verified Date/Time: 09/20/2018 20:32:40 Reading Location: [facility] Radiology Reading Room Performing Organization Address [facility]/Zipcode Phone Number Kids Note ECHOCARDIOGRAM REPORT - SCAN (09/19/2018 5:50 PM BOILER CLEANER) Narrative Performed At ECHO W CONTRAST & DOPPLER (09/19/2018 2:01 PM BOILER CLEANER) Ejection Fraction [facility] Specimen Narrative Performed At Transthoracic Echocardiography Report (TTE) [facility] Demographics Patient NameBIALVA LINDSEYDate of Study09/19/2018 LEONARDO SR. Male Visit [id number] Room [id number] Number Date of 1940Referring EFE Fisher Physician Age 78 year(s)Nursing Resident Dl Mohan [facility] Interpreting Physician MónicaMD FellowHeather MD Simba Procedure [...] now noted: the degree of is now ppdmlzll-sv-vqlilv, the PASP is 50-55mmHg, and there is [...] External Ris In - 09/19/2018 4:52 PM BOILER CLEANER Transthoracic Echocardiography Report (TTE) Demographics Patient Name ALVA LUBIN Date of Study 09/19/2018 LEONARDO . Gender Male Visit Number [id number] Race Room Number 2435 Number Date of 1940 Referring EFE Fisher Physician Age 78 year(s) Nursing Resident Dl Mohan [facility] Interpreting Frenandez Alexander, Physician MD Fellow Reva Cottrell MD [...] now noted: the degree of is now eaduvtxi-zj-vxyuzc, the PASP is 50-55mmHg, and there is [...] MKCKESSON CPACS Hemoglobin A1c (09/19/2018 9:45 AM BOILER CLEANER) Hemoglobin A1C 6.4 (H) 4.3 - 6.1 % [facility] Specimen Blood Performing Organization Address City/[facility]/Zipcode Phone Number [address] [address] CENTER Troponin I (09/19/2018 6:01 AM BOILER CLEANER)Only the most recent of2 resultswithin the time period is included. Troponin I 0.01 0.00 - 0.03 ng/mL [facility] Specimen Blood Narrative Performed At Troponin I (TnI) levels must be interpreted [facility] in the context of the presenting symptoms [...] disease, and persistent tachyarrhythmia. Performing Organization Address City/[facility]/Zipcode Phone Number [place] [phone] [place], [place] [phone] CENTER B-type Natriuretic Factor (BNP) (09/18/2018 6:15 PM BOILER CLEANER) BNP 1,260 (H) 0 - 100 pg/mL [facility] Specimen Blood Performing Organization Address [facility] Hospitalcode Phone Number [address] [address] [place] Comprehensive metabolic panel (09/18/2018 6:15 PM BOILER CLEANER) Protein, Total 6.6 6.0 - 8.3 gm/dL [facility] Albumin 3.8 3.5 - 5.0 g/dL [facility] Alkaline Phosphatase 90 40 - 150 U/L [facility] Total Bilirubin 0.8 0.2 - 1.2 mg/dL [facility] Sodium 130 (L) 136 - 145 meq/L [facility] Potassium 3.8 3.5 - 5.1 meq/L [facility] Chloride 96 (L) 98 - 107 meq/L [facility] CO2 26 22 - 29 meq/L [facility] BUN 20 7 - 21 mg/dL [facility] Creatinine 0.98 0.57 - 1.25 mg/dL [facility] Glucose 103 70 - 105 mg/dL [facility] Calcium 9.3 8.4 - 10.2 mg/dL [facility] AST 26 5 - 34 U/L [facility] ALT 32 6 - 55 U/L [facility] EGFR 74Comment: ESTIMATED GFR mL/min/1.73 sq m [facility] IS NOT ACCURATE [facility] CREATININE CLEARANCE IN PREDICTING GLOMERULAR FILTRATION RATE. ESTIMATED GFR IS NOT APPLICABLE FOR DIALYSIS PATIENTS. Specimen Blood Performing Organization Address City/State/Zipcode Phone Number [facility] [address] [place] [address] CENTER after 04/16/2018 Insurance Payer Benefit Plan / Group Subscriber ID Type Phone Address MEDICARE MEDICARE A B xxxxxxxxxxx Medicare Advance Directives For more information, please contact:[facility] [place], [place] [phone] Code Status Date Activated Date Inactivated Comments [...]
--- OUTSIDE RECORDS SUMMARY | 2019-04-17 08:55 | XMS REPORT ---
:1940 Author Organization [facility] Address [address] [place] [address] Care Team Providers Name Role Phone RAJEEV MURRYENDRA Unavailable Unavailable Problems This patient has no known problems. Allergies, Adverse Reactions, Alerts This patient has no known allergies or adverse reactions. Medications This patient has no known medications. Results Test Description Test Time Test Comments Text Results Atomic Results Result Comments TISSUE EXAM 2018-10-04 14:19:00 Surgical Pathology Report Case: [id number] Authorizing Provider: Jhonathan Sharma MD Collected: 09/25/2018 1807 Ordering Location: [address] Received: 09/26/2018 0954 Service Pathologist: Haris Jeter MD Specimen: Plaque, arterial plaque ARTERY, LEFT FEMORAL, ENDARTERECTOMY:CALCIFIC ATHEROSCLEROTIC PLAQUE Signing Pathologist Direct Phone Line: [phone] signed by Haris Jeter MD on 10/04/2018 at 2:19 [id number]; [id number] femoral artery plaqueArterial plaqueThe specimen is received in saline labeled with the patient's information labeled "arterial plaque" and consists of previously opened calcified segment of tissue measuring 2.5 cm in length x 0.5 cm in circumference. Paper Folding Machine Operator sections are submitted A1 for decalcification. CG/pl Performed POCT-GLUCOSE METER 2018-09-28 13:44:00 Test Item Value Reference Range Comments POC-GLUCOSE METER (BEAKER) (test 326 mg/dL 70-110 TESTED AT [address] gglm=0198) [facility] [address] POCT-GLUCOSE [id number] 11:32:00 Test Item Value Reference Range Comments POC-GLUCOSE METER (BEAKER) 150 mg/dL 70-110 TESTED AT [address] (test qzpc=2774) [facility] [address] [id number] 04:26:00 Test Item Value Reference Range Comments MAGNESIUM (BEAKER) (test ddhb=532) 1.6 mg/dL 1.6-2.6 BASIC METABOLIC [id number] 04:26:00 Test Item Value Reference Range Comments SODIUM (BEAKER) (test 138 meq/L 136-145 soyb=811) POTASSIUM (BEAKER) (test 3.6 meq/L 3.5-5.1 pgrq=965) CHLORIDE (BEAKER) (test 103 meq/L 98-107 nawx=261) CO2 (BEAKER) (test 27 meq/L 22-29 ieiq=593) BLOOD UREA NITROGEN 30 mg/dL 7-21 (BEAKER) (test xixr=345) CREATININE (BEAKER) (test 1.04 mg/dL 0.57-1.25 kugb=848) GLUCOSE RANDOM (BEAKER) 115 mg/dL 70-105 (test rwnz=918) CALCIUM (BEAKER) (test 8.8 mg/dL 8.4-10.2 axmx=893) EGFR (BEAKER) (test 69 mL/min/1.73 sq m ESTIMATED GFR IS NOT itoy=4672) ACCURATE CREATININE CLEARANCE IN PREDICTING GLOMERULAR FILTRATION RATE. ESTIMATED GFR IS NOT APPLICABLE FOR DIALYSIS PATIENTS. CBC W/PLT COUNT & AUTO [id number] 04:09:00 Test Item Value Reference Range Comments WHITE BLOOD CELL COUNT (BEAKER) (test vahi=186) 9.4 K/ L 3.5-10.5 RED BLOOD CELL COUNT (BEAKER) (test drcb=343) 2.67 M/ L 4.63-6.08 HEMOGLOBIN (BEAKER) (test yrid=296) 8.4 GM/DL 13.7-17.5 HEMATOCRIT (BEAKER) (test iqim=806) 25.7 % 40.1-51.0 MEAN CORPUSCULAR VOLUME (BEAKER) (test opft=129) 96.3 fL 79.0-92.2 MEAN CORPUSCULAR HEMOGLOBIN (BEAKER) (test 31.5 pg 25.7-32.2 blgu=324) MEAN CORPUSCULAR HEMOGLOBIN CONC (BEAKER) (test 32.7 GM/DL 32.3-36.5 ewku=631) RED CELL DISTRIBUTION WIDTH (BEAKER) (test 12.4 % 11.6-14.4 yigl=880) PLATELET COUNT (BEAKER) (test fyru=444) 213 K/CU MM 150-450 MEAN PLATELET VOLUME (BEAKER) (test etrd=789) 9.9 fL 9.4-12.4 NUCLEATED RED BLOOD CELLS (BEAKER) (test 0 /100 WBC 0-0 yxto=192) NEUTROPHILS RELATIVE PERCENT (BEAKER) (test 70 % zyic=359) LYMPHOCYTES RELATIVE PERCENT (BEAKER) (test 12 % ixag=234) MONOCYTES RELATIVE PERCENT (BEAKER) (test 12 % aksn=263) EOSINOPHILS RELATIVE PERCENT (BEAKER) (test 5 % dklr=903) BASOPHILS RELATIVE PERCENT (BEAKER) (test 1 % xgyg=041) NEUTROPHILS ABSOLUTE COUNT (BEAKER) (test 6.50 K/ L 1.78-5.38 wrzd=351) LYMPHOCYTES ABSOLUTE COUNT (BEAKER) (test 1.10 K/ L 1.32-3.57 lupv=023) MONOCYTES ABSOLUTE COUNT (BEAKER) (test 1.16 K/ L 0.30-0.82 vdoi=055) EOSINOPHILS ABSOLUTE COUNT (BEAKER) (test 0.49 K/ L 0.04-0.54 bbyf=695) BASOPHILS ABSOLUTE COUNT (BEAKER) (test 0.05 K/ L 0.01-0.08 ojzr=976) IMMATURE GRANULOCYTES-RELATIVE PERCENT (BEAKER) 1 % 0-1 (test iyrj=4349) [id number] 03:49:00 Test Item Value Reference Range Comments MAGNESIUM (BEAKER) (test lewk=728) 1.7 mg/dL 1.6-2.6 BASIC METABOLIC [id number] 03:49:00 Test Item Value Reference Range Comments SODIUM (BEAKER) (test 136 meq/L 136-145 czoi=061) POTASSIUM (BEAKER) (test 3.5 meq/L 3.5-5.1 zmpm=341) CHLORIDE (BEAKER) (test 102 meq/L 98-107 irtf=517) CO2 (BEAKER) (test 27 meq/L 22-29 khva=403) BLOOD UREA NITROGEN 31 mg/dL 7-21 (BEAKER) (test stia=329) CREATININE (BEAKER) (test 1.22 mg/dL 0.57-1.25 txun=041) GLUCOSE RANDOM (BEAKER) 122 mg/dL 70-105 (test rhaz=313) CALCIUM (BEAKER) (test 8.9 mg/dL 8.4-10.2 mjlp=723) EGFR (BEAKER) (test 57 mL/min/1.73 sq m ESTIMATED GFR IS NOT uanw=4147) ACCURATE CREATININE CLEARANCE IN PREDICTING GLOMERULAR FILTRATION RATE. ESTIMATED GFR IS NOT APPLICABLE FOR DIALYSIS PATIENTS. CBC W/PLT COUNT & AUTO [id number] 03:32:00 Test Item Value Reference Range Comments WHITE BLOOD CELL COUNT (BEAKER) (test osgt=156) 10.0 K/ L 3.5-10.5 RED BLOOD CELL COUNT (BEAKER) (test srcb=247) 2.75 M/ L 4.63-6.08 HEMOGLOBIN (BEAKER) (test yzbu=701) 8.7 GM/DL 13.7-17.5 HEMATOCRIT (BEAKER) (test dirw=329) 26.7 % 40.1-51.0 MEAN CORPUSCULAR VOLUME (BEAKER) (test ockc=448) 97.1 fL 79.0-92.2 MEAN CORPUSCULAR HEMOGLOBIN (BEAKER) (test 31.6 pg 25.7-32.2 gjbk=358) MEAN CORPUSCULAR HEMOGLOBIN CONC (BEAKER) (test 32.6 GM/DL 32.3-36.5 nsef=449) RED CELL DISTRIBUTION WIDTH (BEAKER) (test 12.5 % 11.6-14.4 pfrt=445) PLATELET COUNT (BEAKER) (test stmz=886) 189 K/CU MM 150-450 MEAN PLATELET VOLUME (BEAKER) (test ncgn=952) 9.9 fL 9.4-12.4 NUCLEATED RED BLOOD CELLS (BEAKER) (test 0 /100 WBC 0-0 wgjc=020) NEUTROPHILS RELATIVE PERCENT (BEAKER) (test 74 % jbto=728) LYMPHOCYTES RELATIVE PERCENT (BEAKER) (test 10 % kzsc=981) MONOCYTES RELATIVE PERCENT (BEAKER) (test 11 % ycjs=590) EOSINOPHILS RELATIVE PERCENT (BEAKER) (test 4 % zfqw=445) BASOPHILS RELATIVE PERCENT (BEAKER) (test 1 % ptnc=808) NEUTROPHILS ABSOLUTE COUNT (BEAKER) (test 7.39 K/ L 1.78-5.38 irxi=025) LYMPHOCYTES ABSOLUTE COUNT (BEAKER) (test 0.99 K/ L 1.32-3.57 ipbz=755) MONOCYTES ABSOLUTE COUNT (BEAKER) (test 1.12 K/ L 0.30-0.82 eroz=169) EOSINOPHILS ABSOLUTE COUNT (BEAKER) (test 0.40 K/ L 0.04-0.54 ijwz=798) BASOPHILS ABSOLUTE COUNT (BEAKER) (test 0.06 K/ L 0.01-0.08 iyuh=863) IMMATURE GRANULOCYTES-RELATIVE PERCENT (BEAKER) 1 % 0-1 (test gmbp=8839) [id number] 10:17:00 Test Item Value Reference Range Comments MAGNESIUM (BEAKER) (test lrgn=869) 1.6 mg/dL 1.6-2.6 BASIC METABOLIC [id number] 10:17:00 Test Item Value Reference Range Comments SODIUM (BEAKER) (test 135 meq/L 136-145 yzhm=878) POTASSIUM (BEAKER) (test 3.8 meq/L 3.5-5.1 dfly=066) CHLORIDE (BEAKER) (test 101 meq/L 98-107 guse=091) CO2 (BEAKER) (test 27 meq/L 22-29 fkzu=683) BLOOD UREA NITROGEN 30 mg/dL 7-21 (BEAKER) (test miuf=567) CREATININE (BEAKER) (test 1.23 mg/dL 0.57-1.25 lvze=055) GLUCOSE RANDOM (BEAKER) 120 mg/dL 70-105 (test rmjf=316) CALCIUM (BEAKER) (test 8.6 mg/dL 8.4-10.2 xaoe=579) EGFR (BEAKER) (test 57 mL/min/1.73 sq m ESTIMATED GFR IS NOT lmhy=0891) ACCURATE CREATININE CLEARANCE IN PREDICTING GLOMERULAR FILTRATION RATE. ESTIMATED GFR IS NOT APPLICABLE FOR DIALYSIS PATIENTS. CBC W/PLT COUNT & AUTO [id number] 03:47:00 Test Item Value Reference Range Comments WHITE BLOOD CELL COUNT (BEAKER) (test rigg=275) 10.0 K/ L 3.5-10.5 RED BLOOD CELL COUNT (BEAKER) (test ifum=105) 2.80 M/ L 4.63-6.08 HEMOGLOBIN (BEAKER) (test kxvh=765) 8.9 GM/DL 13.7-17.5 HEMATOCRIT (BEAKER) (test iawp=584) 26.9 % 40.1-51.0 MEAN CORPUSCULAR VOLUME (BEAKER) (test zray=199) 96.1 fL 79.0-92.2 MEAN CORPUSCULAR HEMOGLOBIN (BEAKER) (test 31.8 pg 25.7-32.2 hrnk=075) MEAN CORPUSCULAR HEMOGLOBIN CONC (BEAKER) (test 33.1 GM/DL 32.3-36.5 jmbb=676) RED CELL DISTRIBUTION WIDTH (BEAKER) (test 12.5 % 11.6-14.4 qaev=339) PLATELET COUNT (BEAKER) (test lqsr=458) 212 K/CU MM 150-450 MEAN PLATELET VOLUME (BEAKER) (test cbar=743) 9.4 fL 9.4-12.4 NUCLEATED RED BLOOD CELLS (BEAKER) (test 0 /100 WBC 0-0 pnco=323) NEUTROPHILS RELATIVE PERCENT (BEAKER) (test 77 % rijs=083) LYMPHOCYTES RELATIVE PERCENT (BEAKER) (test 9 % szee=932) MONOCYTES RELATIVE PERCENT (BEAKER) (test 12 % ntat=738) EOSINOPHILS RELATIVE PERCENT (BEAKER) (test 2 % acrc=525) BASOPHILS RELATIVE PERCENT (BEAKER) (test 0 % cqnf=438) NEUTROPHILS ABSOLUTE COUNT (BEAKER) (test 7.65 K/ L 1.78-5.38 nfvf=276) LYMPHOCYTES ABSOLUTE COUNT (BEAKER) (test 0.92 K/ L 1.32-3.57 ucky=439) MONOCYTES ABSOLUTE COUNT (BEAKER) (test 1.17 K/ L 0.30-0.82 afpr=137) EOSINOPHILS ABSOLUTE COUNT (BEAKER) (test 0.16 K/ L 0.04-0.54 eowf=348) BASOPHILS ABSOLUTE COUNT (BEAKER) (test 0.04 K/ L 0.01-0.08 ywls=118) IMMATURE GRANULOCYTES-RELATIVE PERCENT (BEAKER) 1 % 0-1 (test bwli=4332) [id number] 17:44:00 Test Item Value Reference Range Comments ACTIVATED CLOTTING TIME 131 sec TESTED AT [facility] [address] (BEAKER) (test qzbx=455) [facility] [address] BLOOD GAS, [id number] 17:15:00 Test Item Value Reference Range Comments PH ARTERIAL (BEAKER) (test kyvj=909) 7.36 7.35-7.45 PCO2 ARTERIAL (BEAKER) (test ypym=207) 49 mmHg 35-45 PO2 ARTERIAL (BEAKER) (test ifxo=051) 119 mmHg 80-90 O2 SATURATION ARTERIAL (BEAKER) (test imyy=142) 98.3 % 96.0-97.0 HCO3 ARTERIAL (BEAKER) (test kdhy=133) 28 mmol/L 21-29 BASE EXCESS ARTERIAL (BEAKER) (test aodf=117) 1.2 mmol/L -2.0-3.0 PATIENT TEMPERATURE (BEAKER) (test mlmm=8856) 35.4 C FIO2 (BEAKER) (test rusc=8140) 30.0 % SODIUM NA-STAT [id number] 17:15:00 Test Item Value Reference Range Comments SODIUM (BEAKER) (test atwa=289) 132 meq/L 135-148 HGB/HCT (H&H) - STAT [id number] 17:15:00 Test Item Value Reference Range Comments HEMOGLOBIN (BEAKER) (test tznv=471) 11.2 g/dL 13.0-16.8 HEMATOCRIT (BEAKER) (test gcuf=471) 33.0 % 40.0-50.0 GLUCOSE-STAT [id number] 17:14:00 Test Item Value Reference Range Comments GLUCOSE RANDOM (BEAKER) (test ykyr=278) 104 mg/dL 70-110 POTASSIUM-STAT [id number] 17:14:00 Test Item Value Reference Range Comments POTASSIUM (BEAKER) (test erke=660) 4.1 meq/L 3.6-5.5 [id number] 17:11:00 Test Item Value Reference Range Comments ACTIVATED CLOTTING TIME 268 sec TESTED AT [facility] [address] (BEAKER) (test pokb=345) [place] [address] [id number] 16:12:00 Test Item Value Reference Range Comments ACTIVATED CLOTTING TIME 257 sec TESTED AT [facility] [address] (BEAKER) (test uges=278) [place] [address] BASIC METABOLIC [id number] 07:04:00 Test Item Value Reference Range Comments SODIUM (BEAKER) (test 132 meq/L 136-145 bxnv=150) POTASSIUM (BEAKER) (test 4.0 meq/L 3.5-5.1 kqne=394) CHLORIDE (BEAKER) (test 99 meq/L 98-107 lvgf=324) CO2 (BEAKER) (test 24 meq/L 22-29 mmnc=225) BLOOD UREA NITROGEN 30 mg/dL 7-21 (BEAKER) (test fecs=460) CREATININE (BEAKER) (test 1.14 mg/dL 0.57-1.25 kgdf=876) GLUCOSE RANDOM (BEAKER) 101 mg/dL 70-105 (test acbp=217) CALCIUM (BEAKER) (test 9.1 mg/dL 8.4-10.2 mwqj=916) EGFR (BEAKER) (test 62 mL/min/1.73 sq m ESTIMATED GFR IS NOT dkaj=0867) ACCURATE CREATININE CLEARANCE IN PREDICTING GLOMERULAR FILTRATION RATE. ESTIMATED GFR IS NOT APPLICABLE FOR DIALYSIS PATIENTS. CBC (HEMOGRAM ONLY)2018-09-25 06:47:00 Test Item Value Reference Range Comments WHITE BLOOD CELL COUNT (BEAKER) (test juzz=073) 10.4 K/ L 3.5-10.5 RED BLOOD CELL COUNT (BEAKER) (test rdqe=313) 3.34 M/ L 4.63-6.08 HEMOGLOBIN (BEAKER) (test pkip=040) 10.6 GM/DL 13.7-17.5 HEMATOCRIT (BEAKER) (test rxay=441) 32.7 % 40.1-51.0 MEAN CORPUSCULAR VOLUME (BEAKER) (test scyb=454) 97.9 fL 79.0-92.2 MEAN CORPUSCULAR HEMOGLOBIN (BEAKER) (test 31.7 pg 25.7-32.2 okwo=566) MEAN CORPUSCULAR HEMOGLOBIN CONC (BEAKER) (test 32.4 GM/DL 32.3-36.5 lcgy=558) RED CELL DISTRIBUTION WIDTH (BEAKER) (test 12.4 % 11.6-14.4 djbb=942) PLATELET COUNT (BEAKER) (test ywro=881) 248 K/CU MM 150-450 MEAN PLATELET VOLUME (BEAKER) (test wsmj=052) 9.4 fL 9.4-12.4 NUCLEATED RED BLOOD CELLS (BEAKER) (test 0 /100 WBC 0-0 ctum=729) URINALYSIS W/ REFLEX URINE [id number] 13:29:00 Test Item Value Reference Range Comments COLOR (BEAKER) (test eskb=688) Light Yellow CLARITY (BEAKER) (test snls=820) Clear SPECIFIC GRAVITY UA (BEAKER) (test rlzd=750) 1.006 1.001-1.035 PH UA (BEAKER) (test oioz=612) 7.0 5.0-8.0 PROTEIN UA (BEAKER) (test ugbp=935) Negative Negative GLUCOSE UA (BEAKER) (test epnm=379) Negative Negative KETONES UA (BEAKER) (test nald=021) Negative Negative BILIRUBIN UA (BEAKER) (test vmuh=450) Negative Negative BLOOD UA (BEAKER) (test edhy=238) Negative Negative NITRITE UA (BEAKER) (test vjqw=538) Negative Negative LEUKOCYTE ESTERASE UA (BEAKER) (test hevw=948) Negative Negative UROBILINOGEN UA (BEAKER) (test qoah=542) 0.2 mg/dL 0.2-1.0 RBC UA (BEAKER) (test plua=812) < /HPF WBC UA (BEAKER) (test abgg=506) < /HPF SOURCE(BEAKER) (test zqnt=1977) BASIC METABOLIC [id number] 06:55:00 Test Item Value Reference Range Comments SODIUM (BEAKER) (test 132 meq/L 136-145 xlkw=847) POTASSIUM (BEAKER) (test 4.2 meq/L 3.5-5.1 pkqw=187) CHLORIDE (BEAKER) (test 97 meq/L 98-107 tdcw=626) CO2 (BEAKER) (test 26 meq/L 22-29 rejm=381) BLOOD UREA NITROGEN 23 mg/dL 7-21 (BEAKER) (test qpwh=852) CREATININE (BEAKER) (test 1.14 mg/dL 0.57-1.25 conm=200) GLUCOSE RANDOM (BEAKER) 79 mg/dL 70-105 (test deud=970) CALCIUM (BEAKER) (test 9.5 mg/dL 8.4-10.2 wftl=654) EGFR (BEAKER) (test 62 mL/min/1.73 sq m ESTIMATED GFR IS NOT xvdx=6197) ACCURATE CREATININE CLEARANCE IN PREDICTING GLOMERULAR FILTRATION RATE. ESTIMATED GFR IS NOT APPLICABLE FOR DIALYSIS PATIENTS. CBC (HEMOGRAM ONLY)2018-09-24 05:48:00 Test Item Value Reference Range Comments WHITE BLOOD CELL COUNT (BEAKER) (test kugx=456) 14.3 K/ L 3.5-10.5 RED BLOOD CELL COUNT (BEAKER) (test lvrf=950) 3.91 M/ L 4.63-6.08 HEMOGLOBIN (BEAKER) (test opjm=518) 12.3 GM/DL 13.7-17.5 HEMATOCRIT (BEAKER) (test bfmu=169) 37.8 % 40.1-51.0 MEAN CORPUSCULAR VOLUME (BEAKER) (test locu=566) 96.7 fL 79.0-92.2 MEAN CORPUSCULAR HEMOGLOBIN (BEAKER) (test 31.5 pg 25.7-32.2 eyfm=373) MEAN CORPUSCULAR HEMOGLOBIN CONC (BEAKER) (test 32.5 GM/DL 32.3-36.5 exjm=064) RED CELL DISTRIBUTION WIDTH (BEAKER) (test 12.5 % 11.6-14.4 ctti=026) PLATELET COUNT (BEAKER) (test fgfd=215) 277 K/CU MM 150-450 MEAN PLATELET VOLUME (BEAKER) (test ohpf=537) 9.1 fL 9.4-12.4 NUCLEATED RED BLOOD CELLS (BEAKER) (test 0 /100 WBC 0-0 jaha=489) POCT-GLUCOSE [id number] 18:09:00 Test Item Value Reference Range Comments POC-GLUCOSE METER (BEAKER) 99 mg/dL 70-110 TESTED AT [facility] [address] [facility] (test pqqa=2015) [facility] [address] POCT-GLUCOSE [id number] 13:47:00 Test Item Value Reference Range Comments POC-GLUCOSE METER (BEAKER) 144 mg/dL 70-110 TESTED AT [facility] [address] [facility] (test iqhk=1090) [facility] [address] U/S, [id number] 11:20:00Laterality?->Left Reason for exam:->left sided pleural effusion [...] MDReport Verified Date/Time: 09/23/2018 11:20:35 Reading Location: [address] Ortho Consult Reading Room PROTHROMBIN [id number] 05:40:00 Test Item Value Reference Range Comments PROTIME (BEAKER) (test fipa=354) 14.7 seconds 11.7-14.7 INR (BEAKER) (test jocd=226) 1.2 <=5.9 RECOMMENDED COUMADIN/WARFARIN INR THERAPY RANGESSTANDARD DOSE: 2.0 - 3.0 Includes: PROPHYLAXIS forvenous thrombosis, systemic embolization; TREATMENT for venous thrombosis and/or pulmonary embolus.HIGH RISK: Target INR is 2.5-3.5 for patients with mechanical heart valves.[id number] 05:40:00 Test Item Value Reference Range Comments PARTIAL THROMBOPLASTIN TIME (BEAKER) (test 31.6 seconds 22.5-36.0 trur=462) [id number] 05:21:00 Test Item Value Reference Range Comments MAGNESIUM (BEAKER) (test iviw=210) 1.6 mg/dL 1.6-2.6 BASIC METABOLIC [id number] 05:21:00 Test Item Value Reference Range Comments SODIUM (BEAKER) (test 132 meq/L 136-145 ypgn=471) POTASSIUM (BEAKER) (test 3.5 meq/L 3.5-5.1 oiza=940) CHLORIDE (BEAKER) (test 96 meq/L 98-107 peka=626) CO2 (BEAKER) (test 28 meq/L 22-29 zsxu=583) BLOOD UREA NITROGEN 22 mg/dL 7-21 (BEAKER) (test ptcz=004) CREATININE (BEAKER) (test 1.06 mg/dL 0.57-1.25 wdyx=907) GLUCOSE RANDOM (BEAKER) 108 mg/dL 70-105 (test dmam=759) CALCIUM (BEAKER) (test 9.2 mg/dL 8.4-10.2 nblf=738) EGFR (BEAKER) (test 67 mL/min/1.73 sq m ESTIMATED GFR IS NOT nvrp=1139) ACCURATE CREATININE CLEARANCE IN PREDICTING GLOMERULAR FILTRATION RATE. ESTIMATED GFR IS NOT APPLICABLE FOR DIALYSIS PATIENTS. [id number] 05:20:00 Test Item Value Reference Range Comments MAGNESIUM (BEAKER) (test nxbx=405) 1.5 mg/dL 1.6-2.6 BASIC METABOLIC [id number] 05:20:00 Test Item Value Reference Range Comments SODIUM (BEAKER) (test 135 meq/L 136-145 sfue=498) POTASSIUM (BEAKER) (test 3.6 meq/L 3.5-5.1 huzd=390) CHLORIDE (BEAKER) (test 98 meq/L 98-107 oldh=745) CO2 (BEAKER) (test 29 meq/L 22-29 qhve=587) BLOOD UREA NITROGEN 22 mg/dL 7-21 (BEAKER) (test jayw=015) CREATININE (BEAKER) (test 1.07 mg/dL 0.57-1.25 bred=492) GLUCOSE RANDOM (BEAKER) 108 mg/dL 70-105 (test wwmh=492) CALCIUM (BEAKER) (test 9.3 mg/dL 8.4-10.2 jkdn=360) EGFR (BEAKER) (test 67 mL/min/1.73 sq m ESTIMATED GFR IS NOT lpoh=4406) ACCURATE CREATININE CLEARANCE IN PREDICTING GLOMERULAR FILTRATION RATE. ESTIMATED GFR IS NOT APPLICABLE FOR DIALYSIS PATIENTS. CBC W/PLT COUNT & AUTO [id number] 05:02:00 Test Item Value Reference Range Comments WHITE BLOOD CELL COUNT (BEAKER) (test ubml=826) 8.3 K/ L 3.5-10.5 RED BLOOD CELL COUNT (BEAKER) (test zpwa=136) 3.67 M/ L 4.63-6.08 HEMOGLOBIN (BEAKER) (test rzes=020) 11.5 GM/DL 13.7-17.5 HEMATOCRIT (BEAKER) (test arkt=038) 35.0 % 40.1-51.0 MEAN CORPUSCULAR VOLUME (BEAKER) (test vzrg=102) 95.4 fL 79.0-92.2 MEAN CORPUSCULAR HEMOGLOBIN (BEAKER) (test 31.3 pg 25.7-32.2 nuij=732) MEAN CORPUSCULAR HEMOGLOBIN CONC (BEAKER) (test 32.9 GM/DL 32.3-36.5 qafy=241) RED CELL DISTRIBUTION WIDTH (BEAKER) (test 12.5 % 11.6-14.4 ckyu=234) PLATELET COUNT (BEAKER) (test ehde=758) 285 K/CU MM 150-450 MEAN PLATELET VOLUME (BEAKER) (test ucbl=765) 9.2 fL 9.4-12.4 NUCLEATED RED BLOOD CELLS (BEAKER) (test 0 /100 WBC 0-0 tbge=498) NEUTROPHILS RELATIVE PERCENT (BEAKER) (test 71 % lmbt=399) LYMPHOCYTES RELATIVE PERCENT (BEAKER) (test 10 % vqcp=145) MONOCYTES RELATIVE PERCENT (BEAKER) (test 12 % fxmc=366) EOSINOPHILS RELATIVE PERCENT (BEAKER) (test 7 % nvke=672) BASOPHILS RELATIVE PERCENT (BEAKER) (test 1 % rhut=127) NEUTROPHILS ABSOLUTE COUNT (BEAKER) (test 5.88 K/ L 1.78-5.38 bvnk=246) LYMPHOCYTES ABSOLUTE COUNT (BEAKER) (test 0.79 K/ L 1.32-3.57 lycr=607) MONOCYTES ABSOLUTE COUNT (BEAKER) (test 1.01 K/ L 0.30-0.82 qtoy=866) EOSINOPHILS ABSOLUTE COUNT (BEAKER) (test 0.55 K/ L 0.04-0.54 uedr=340) BASOPHILS ABSOLUTE COUNT (BEAKER) (test 0.06 K/ L 0.01-0.08 cbvk=042) IMMATURE GRANULOCYTES-RELATIVE PERCENT (BEAKER) 1 % 0-1 (test zxpp=8959) CBC (HEMOGRAM ONLY)2018-09-23 05:02:00 Test Item Value Reference Range Comments WHITE BLOOD CELL COUNT (BEAKER) (test kbtv=478) 8.3 K/ L 3.5-10.5 RED BLOOD CELL COUNT (BEAKER) (test ogee=719) 3.67 M/ L 4.63-6.08 HEMOGLOBIN (BEAKER) (test invh=205) 11.5 GM/DL 13.7-17.5 HEMATOCRIT (BEAKER) (test jzld=260) 35.0 % 40.1-51.0 MEAN CORPUSCULAR VOLUME (BEAKER) (test hkan=777) 95.4 fL 79.0-92.2 MEAN CORPUSCULAR HEMOGLOBIN (BEAKER) (test 31.3 pg 25.7-32.2 vxqf=868) MEAN CORPUSCULAR HEMOGLOBIN CONC (BEAKER) (test 32.9 GM/DL 32.3-36.5 qmtc=745) RED CELL DISTRIBUTION WIDTH (BEAKER) (test 12.5 % 11.6-14.4 jwxh=756) PLATELET COUNT (BEAKER) (test orjn=944) 285 K/CU MM 150-450 MEAN PLATELET VOLUME (BEAKER) (test csct=812) 9.2 fL 9.4-12.4 NUCLEATED RED BLOOD CELLS (BEAKER) (test 0 /100 WBC 0-0 bqyp=064) POCT-GLUCOSE [id number] 21:35:00 Test Item Value Reference Range Comments POC-GLUCOSE METER (BEAKER) 133 mg/dL 70-110 TESTED AT [address] (test mrji=7409) [place] [id number] POCT-GLUCOSE [id number] 17:37:00 Test Item Value Reference Range Comments POC-GLUCOSE METER (BEAKER) 147 mg/dL 70-110 TESTED AT [address] (test wugc=4495) [place] [address] [id number] 17:19:00 Test Item Value Reference Range Comments MAGNESIUM (BEAKER) (test kcbj=608) 1.5 mg/dL 1.6-2.6 BASIC METABOLIC [id number] 17:19:00 Test Item Value Reference Range Comments SODIUM (BEAKER) (test 136 meq/L 136-145 hndc=430) POTASSIUM (BEAKER) (test 3.4 meq/L 3.5-5.1 rppz=315) CHLORIDE (BEAKER) (test 97 meq/L 98-107 gosq=432) CO2 (BEAKER) (test 31 meq/L 22-29 bfiu=605) BLOOD UREA NITROGEN 21 mg/dL 7-21 (BEAKER) (test cans=507) CREATININE (BEAKER) (test 1.12 mg/dL 0.57-1.25 bivh=507) GLUCOSE RANDOM (BEAKER) 114 mg/dL 70-105 (test vfeh=859) CALCIUM (BEAKER) (test 9.6 mg/dL 8.4-10.2 qrci=342) EGFR (BEAKER) (test 63 mL/min/1.73 sq m ESTIMATED GFR IS NOT tkmk=5000) ACCURATE CREATININE CLEARANCE IN PREDICTING GLOMERULAR FILTRATION RATE. ESTIMATED GFR IS NOT APPLICABLE FOR DIALYSIS PATIENTS. POCT-GLUCOSE [id number] 13:08:00 Test Item Value Reference Range Comments POC-GLUCOSE METER (BEAKER) 106 mg/dL 70-110 TESTED AT [address] (test omzf=8001) [place] [address] POCT-GLUCOSE [id number] 21:49:00 Test Item Value Reference Range Comments POC-GLUCOSE METER (BEAKER) 116 mg/dL 70-110 TESTED AT [address] (test napw=8692) [place] [address] POCT-GLUCOSE [id number] 17:56:00 Test Item Value Reference Range Comments POC-GLUCOSE METER (BEAKER) 142 mg/dL 70-110 TESTED AT [address] (test gdim=2921) [place] [id number] CT, CTA, [id number] 14:55:00Addendum BeginsREPORT STATUS:A Addendum:There is increased density visualized in the left pleural fluid collection. Clinical correlation is needed if an inflammatory or hemorrhagic process is suspected.I agree with the previously described non vascular findings. Signed: Shirlene Ackerman MDReport Verified Date/Time: 09/21/2018 14:55:20 Reading Location: [place] [address] Angio Body Reading RoomAddendum EndsFINAL REPORT CT [...] artery have increased calcific atherosclerosis seen with xelj-go-okwhncyn lesion identified. The right common femoral arteryis [...] An addendum will be dictated by the Dimensional Inspector Radiologist regarding the nonvascular findings. Signed: Shawn Barnes MDReport Verified Date/Time: 09/21/2018 14:01:54 Reading Location: [place] [address], CTA [id number] 14:55:00Addendum BeginsREPORT STATUS :A Addendum:There is increased density visualized in the left pleural fluid collection. Clinical correlation is needed if an inflammatory or hemorrhagic process is suspected.I agree with the previously described non vascular findings. Signed: Round, Shirlene MDReport Verified Date/Time : 09/21/2018 14:55:20 Reading Location: [place] [id number] Angio Body Reading RoomAddendum EndsFINAL REPORT CT [...] artery have increased calcific atherosclerosis seen with ylud-dn-bjyamyga lesion identified. The right common femoral arteryis [...] An addendum will be dictated by the Dimensional Inspector Radiologist regarding the nonvascular findings. Signed: Shawn Barnes MDReport Verified Date/Time: 09/21/2018 14:01:54 Reading Location: [place] [address] Cardiology MRI BASI METABOLIC [id number] 07:01:00 Test Item Value Reference Range Comments SODIUM (BEAKER) (test 129 meq/L 136-145 kjrr=682) POTASSIUM (BEAKER) (test 3.3 meq/L 3.5-5.1 hiuc=934) CHLORIDE (BEAKER) (test 96 meq/L 98-107 grnc=921) CO2 (BEAKER) (test 24 meq/L 22-29 cfgd=150) BLOOD UREA NITROGEN 20 mg/dL 7-21 (BEAKER) (test fjwv=068) CREATININE (BEAKER) (test 1.07 mg/dL 0.57-1.25 yosm=739) GLUCOSE RANDOM (BEAKER) 104 mg/dL 70-105 (test pdln=870) CALCIUM (BEAKER) (test 8.8 mg/dL 8.4-10.2 etti=705) EGFR (BEAKER) (test 67 mL/min/1.73 sq m ESTIMATED GFR IS NOT sdkn=0993) ACCURATE CREATININE CLEARANCE IN PREDICTING GLOMERULAR FILTRATION RATE. ESTIMATED GFR IS NOT APPLICABLE FOR DIALYSIS PATIENTS. POCT-GLUCOSE [id number] 22:18:00 Test Item Value Reference Range Comments POC-GLUCOSE METER (BEAKER) 176 mg/dL 70-110 TESTED AT [facility] [address] [facility] (test ghtm=6425) [facility] [address] RAD, CHEST, 1 VIEW, NON [id number] 20:32:00Reason for exam:->SOBShould this be performed at [...] is unchanged in position. Signed: Ramses Rueda Verified Date/Time: 09/20/2018 20:32 :40 Reading Location: [facility] Radiology Reading Room POCT-GLUCOSE [id number] 17:05:00 Test Item Value Reference Range Comments POC-GLUCOSE METER (BEAKER) 164 mg/dL 70-110 TESTED AT [address] (test xrqc=4377) [facility] [address] POCT-GLUCOSE [id number] 13:55:00 Test Item Value Reference Range Comments POC-GLUCOSE METER (BEAKER) 105 mg/dL 70-110 TESTED AT [address] (test ygtt=6520) [place] [id number] POCT-GLUCOSE [id number] 09:01:00 Test Item Value Reference Range Comments POC-GLUCOSE METER (BEAKER) 116 mg/dL 70-110 TESTED AT [address] (test apbo=3745) [facility] [address] BASIC METABOLIC [id number] 05:36:00 Test Item Value Reference Range Comments SODIUM (BEAKER) (test 131 meq/L 136-145 wxst=452) POTASSIUM (BEAKER) (test 3.8 meq/L 3.5-5.1 bjkq=151) CHLORIDE (BEAKER) (test 100 meq/L 98-107 pavw=189) CO2 (BEAKER) (test 23 meq/L 22-29 sjtc=225) BLOOD UREA NITROGEN 12 mg/dL 7-21 (BEAKER) (test iyli=413) CREATININE (BEAKER) (test 0.81 mg/dL 0.57-1.25 iksg=490) GLUCOSE RANDOM (BEAKER) 102 mg/dL 70-105 (test hlgo=489) CALCIUM (BEAKER) (test 9.1 mg/dL 8.4-10.2 kagf=398) EGFR (BEAKER) (test 92 mL/min/1.73 sq m ESTIMATED GFR IS NOT qbac=9172) ACCURATE CREATININE CLEARANCE IN PREDICTING GLOMERULAR FILTRATION RATE. ESTIMATED GFR IS NOT APPLICABLE FOR DIALYSIS PATIENTS. POCT-GLUCOSE [id number] 23:13:00 Test Item Value Reference Range Comments POC-GLUCOSE METER (BEAKER) 119 mg/dL 70-110 TESTED AT [address] (test pnto=9395) [place] [address] POCT-GLUCOSE [id number] 18:21:00 Test Item Value Reference Range Comments POC-GLUCOSE METER (BEAKER) 155 mg/dL 70-110 TESTED AT [address] (test rcne=7510) [place] [address] HEMOGLOBIN [id number] 12:52:00 Test Item Value Reference Range Comments HEMOGLOBIN A1C (BEAKER) (test xmzm=201) 6.4 % 4.3-6.1 POCT-GLUCOSE [id number] 09:22:00 Test Item Value Reference Range Comments POC-GLUCOSE METER (BEAKER) 99 mg/dL 70-110 TESTED AT [address] (test qbqo=9470) [place] [address] BASIC METABOLIC [id number] 06:48:00 Test Item Value Reference Range Comments SODIUM (BEAKER) (test 128 meq/L 136-145 uelt=017) POTASSIUM (BEAKER) (test 4.2 meq/L 3.5-5.1 tjvt=670) CHLORIDE (BEAKER) (test 99 meq/L 98-107 uhpg=858) CO2 (BEAKER) (test 24 meq/L 22-29 hsuo=883) BLOOD UREA NITROGEN 15 mg/dL 7-21 (BEAKER) (test tksp=484) CREATININE (BEAKER) (test 0.81 mg/dL 0.57-1.25 wvpi=201) GLUCOSE RANDOM (BEAKER) 96 mg/dL 70-105 (test llhz=366) CALCIUM (BEAKER) (test 8.8 mg/dL 8.4-10.2 gkoh=366) EGFR (BEAKER) (test 92 mL/min/1.73 sq m ESTIMATED GFR IS NOT bbsc=7179) ACCURATE CREATININE CLEARANCE IN PREDICTING GLOMERULAR FILTRATION RATE. ESTIMATED GFR IS NOT APPLICABLE FOR DIALYSIS PATIENTS. TROPONIN [id number] 06:46:00 Test Item Value Reference Range Comments TROPONIN I (BEAKER) (test dszp=049) 0.01 ng/mL 0.00-0.03 Troponin I (TnI) levels [...] and persistent tachyarrhythmia.CBC W/PLT COUNT & AUTO [id number] 06:29:00 Test Item Value Reference Range Comments WHITE BLOOD CELL COUNT (BEAKER) (test ukoh=762) 8.2 K/ L 3.5-10.5 RED BLOOD CELL COUNT (BEAKER) (test ugid=549) 3.40 M/ L 4.63-6.08 HEMOGLOBIN (BEAKER) (test eoje=285) 10.8 GM/DL 13.7-17.5 HEMATOCRIT (BEAKER) (test xlhx=631) 32.1 % 40.1-51.0 MEAN CORPUSCULAR VOLUME (BEAKER) (test dtou=303) 94.4 fL 79.0-92.2 MEAN CORPUSCULAR HEMOGLOBIN (BEAKER) (test 31.8 pg 25.7-32.2 lppk=376) MEAN CORPUSCULAR HEMOGLOBIN CONC (BEAKER) (test 33.6 GM/DL 32.3-36.5 obmf=130) RED CELL DISTRIBUTION WIDTH (BEAKER) (test 12.5 % 11.6-14.4 oggd=609) PLATELET COUNT (BEAKER) (test dxgk=040) 257 K/CU MM 150-450 MEAN PLATELET VOLUME (BEAKER) (test wrqi=710) 9.6 fL 9.4-12.4 NUCLEATED RED BLOOD CELLS (BEAKER) (test 0 /100 WBC 0-0 gxxy=702) NEUTROPHILS RELATIVE PERCENT (BEAKER) (test 75 % thup=253) LYMPHOCYTES RELATIVE PERCENT (BEAKER) (test 10 % fhms=467) MONOCYTES RELATIVE PERCENT (BEAKER) (test 11 % trpk=814) EOSINOPHILS RELATIVE PERCENT (BEAKER) (test 3 % rnyj=741) BASOPHILS RELATIVE PERCENT (BEAKER) (test 0 % icsa=161) NEUTROPHILS ABSOLUTE COUNT (BEAKER) (test 6.13 K/ L 1.78-5.38 flem=971) LYMPHOCYTES ABSOLUTE COUNT (BEAKER) (test 0.81 K/ L 1.32-3.57 vdhq=629) MONOCYTES ABSOLUTE COUNT (BEAKER) (test 0.88 K/ L 0.30-0.82 gmeb=200) EOSINOPHILS ABSOLUTE COUNT (BEAKER) (test 0.27 K/ L 0.04-0.54 ggwx=912) BASOPHILS ABSOLUTE COUNT (BEAKER) (test 0.03 K/ L 0.01-0.08 pepq=797) IMMATURE GRANULOCYTES-RELATIVE PERCENT (BEAKER) 1 % 0-1 (test qpcc=8228) TROPONIN [id number] 01:37:00 Test Item Value Reference Range Comments TROPONIN I (BEAKER) (test svid=985) < ng/mL 0.00-0.03 Troponin I (TnI) levels [...] NATRIURETIC PEPTIDE (BEAKER) (test 1260 pg/mL 0-100 cljr=020) COMPREHENSIVE METABOLIC [id number] 18:56:00 Test Item Value Reference Range Comments TOTAL PROTEIN (BEAKER) 6.6 gm/dL 6.0-8.3 (test zjvg=134) ALBUMIN (BEAKER) (test 3.8 g/dL 3.5-5.0 aokf=1770) ALKALINE PHOSPHATASE 90 U/L 40-150 (BEAKER) (test bvno=311) BILIRUBIN TOTAL (BEAKER) 0.8 mg/dL 0.2-1.2 (test zxzy=269) SODIUM (BEAKER) (test 130 meq/L 136-145 vtua=957) POTASSIUM (BEAKER) (test 3.8 meq/L 3.5-5.1 kanv=426) CHLORIDE (BEAKER) (test 96 meq/L 98-107 telz=804) CO2 (BEAKER) (test 26 meq/L 22-29 unwk=768) BLOOD UREA NITROGEN 20 mg/dL 7-21 (BEAKER) (test drba=618) CREATININE (BEAKER) (test 0.98 mg/dL 0.57-1.25 hauk=268) GLUCOSE RANDOM (BEAKER) 103 mg/dL 70-105 (test hqik=106) CALCIUM (BEAKER) (test 9.3 mg/dL 8.4-10.2 yrmh=374) AST (SGOT) (BEAKER) (test 26 U/L 5-34 dphd=645) ALT (SGPT) (BEAKER) (test 32 U/L 6-55 lbxe=777) EGFR (BEAKER) (test 74 mL/min/1.73 sq m ESTIMATED GFR IS NOT cdth=0205) ACCURATE CREATININE CLEARANCE IN PREDICTING GLOMERULAR FILTRATION RATE. ESTIMATED GFR IS NOT APPLICABLE FOR DIALYSIS PATIENTS. CBC W/PLT COUNT & AUTO [id number] 18:35:00 Test Item Value Reference Range Comments WHITE BLOOD CELL COUNT (BEAKER) (test zske=901) 10.5 K/ L 3.5-10.5 RED BLOOD CELL COUNT (BEAKER) (test twaa=780) 3.51 M/ L 4.63-6.08 HEMOGLOBIN (BEAKER) (test goet=800) 11.1 GM/DL 13.7-17.5 HEMATOCRIT (BEAKER) (test yele=309) 33.5 % 40.1-51.0 MEAN CORPUSCULAR VOLUME (BEAKER) (test jjgz=678) 95.4 fL 79.0-92.2 MEAN CORPUSCULAR HEMOGLOBIN (BEAKER) (test 31.6 pg 25.7-32.2 klho=354) MEAN CORPUSCULAR HEMOGLOBIN CONC (BEAKER) (test 33.1 GM/DL 32.3-36.5 nuue=705) RED CELL DISTRIBUTION WIDTH (BEAKER) (test 12.4 % 11.6-14.4 dtzh=870) PLATELET COUNT (BEAKER) (test hycu=495) 268 K/CU MM 150-450 MEAN PLATELET VOLUME (BEAKER) (test ojtg=467) 9.3 fL 9.4-12.4 NUCLEATED RED BLOOD CELLS (BEAKER) (test 0 /100 WBC 0-0 uabe=167) NEUTROPHILS RELATIVE PERCENT (BEAKER) (test 75 % fhip=648) LYMPHOCYTES RELATIVE PERCENT (BEAKER) (test 9 % lasj=072) MONOCYTES RELATIVE PERCENT (BEAKER) (test 12 % biij=203) EOSINOPHILS RELATIVE PERCENT (BEAKER) (test 3 % wpfm=851) BASOPHILS RELATIVE PERCENT (BEAKER) (test 0 % tvix=838) NEUTROPHILS ABSOLUTE COUNT (BEAKER) (test 7.89 K/ L 1.78-5.38 bcec=386) LYMPHOCYTES ABSOLUTE COUNT (BEAKER) (test 0.97 K/ L 1.32-3.57 xiei=908) MONOCYTES ABSOLUTE COUNT (BEAKER) (test 1.21 K/ L 0.30-0.82 miwh=235) EOSINOPHILS ABSOLUTE COUNT (BEAKER) (test 0.32 K/ L 0.04-0.54 cnzg=328) BASOPHILS ABSOLUTE COUNT (BEAKER) (test 0.04 K/ L 0.01-0.08 tieg=990) IMMATURE GRANULOCYTES-RELATIVE PERCENT (BEAKER) 1 % 0-1 (test bmer=1362) POCT-GLUCOSE [id number] 17:14:00 Test Item Value Reference Range Comments POC-GLUCOSE METER (BEAKER) 172 mg/dL 70-110 [facility] [address] [facility] (test sskj=1930) [facility] [address]
[2019-04-17] MEDS ORDERED: TETANUS & DIPHTHERIA TOX,ADULT 0.5 ML VIAL ONE (09:05)
--- NOTE | 2019-04-17 11:02 | EDPHYS ---
Physician Documentation [facility] Name: Jeb Lubin Sr Age: 78 yrs Sex: Male : 1940 Arrival Date: 04/17/2019 Time: 08:28 Bed 8 Private MD: Ismael Miller T ED Physician Marshal Hill HPI: 04/17 08:46 This 78 yrs old Male presents to ER via Ambulatory with complaints of meggan Laceration - Finger. 08:46 The patient or guardian reports pain. The complaints affect the PIP of left index meggan finger. Context: The problem was sustained at home. Onset: The symptoms/episode began/occurred yesterday. Modifying factors: The symptoms are alleviated by nothing, the symptoms are aggravated by nothing. Associated signs and symptoms: The patient has no apparent associated signs or symptoms. Severity of symptoms: At their worst the symptoms were very mild, in the emergency department the symptoms are unchanged. The patient has not experienced similar symptoms in the past. 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 - Social history:: Smoking status: unknown. - Ebola Screening: : Patient negative for fever greater than or equal to 101.5 degrees Fahrenheit, and additional compatible Ebola Virus Disease symptoms Patient denies exposure to infectious person Patient denies travel to an Ebola-affected area in the 21 days before illness onset No symptoms or risks identified at this time. - Family history:: not pertinent. ROS: 08:46 Constitutional: Negative for fever, chills, and weight loss, Eyes: Negative for injury, meggan pain, redness, and discharge, ENT: Negative for injury, pain, and discharge, Neck: Negative for injury, pain, and swelling, Cardiovascular: Negative for chest pain, palpitations, and edema, Respiratory: Negative for shortness of breath, cough, wheezing, and pleuritic chest pain, Abdomen/GI: Negative for abdominal pain, nausea, vomiting, diarrhea, and constipation, Back: Negative for injury and pain, : Negative for injury, bleeding, discharge, and swelling, Skin: Negative for injury, rash, and discoloration, Neuro: Negative for headache, weakness, numbness, tingling, and seizure, Psych: Negative for depression, anxiety, suicide ideation, homicidal ideation, and hallucinations, Allergy/Immunology: Negative for hives, rash, and allergies, Endocrine: Negative for neck swelling, polydipsia, polyuria, polyphagia, and marked weight changes, Hematologic/Lymphatic: Negative for swollen nodes, abnormal bleeding, and unusual bruising. 08:46 MS/extremity: Positive for laceration, of the dorsal aspect of middle phalanx of left index finger. Exam: 08:46 Constitutional: This is a well developed, well nourished patient who is awake, alert, meggan and in no acute distress. Vital Signs: 08:44 BP 164 / 62; Pulse 50; Resp 16; Temp 98.0(TE); Pulse Ox 100% on R/A; Weight 68.95 kg; ss Height 5 ft. 5 in. (165.10 cm); Pain 2/10; 08:44 Body Mass Index 25.29 (68.95 kg, 165.10 cm) ss Laceration: 08:46 Wound Repair of .2cm ( 0.1in ) subcutaneous laceration to dorsal aspect of middle meggan phalanx of left middle finger. Skin/tissue flap noted.. Distal neuro/vascular/tendon intact. Anesthesia: NONE with 0 mls of NONE. Wound prep: Simple cleansing by me. Skin closed with 1-0 Prolene using SURGICEL. Dressed with non-adherent dressing. Patient tolerated well. MDM: 08:38 Patient medically screened. [facility] 08:46 Data reviewed: vital signs, nurses notes. [facility] 04/17 08:44 Order name: Wound dressing: SURGICEL; Complete Time: 08:52 [facility] Administered Medications: 08:46 Drug: Tetanus-Diphtheria Toxoid Adult 0.5 ml {Shoe Caser: [employer]. Exp: 12/28/2022. Lot #: [id number]. } Route: IM; Site: left deltoid; 08:54 Follow up: Response: No adverse reaction; No change in condition 08:54 Follow up: Response: No adverse reaction Disposition: 04/17/19 08:56 Discharged to Home. Impression: Laceration without foreign body of left hand. - Condition is Stable. - Discharge Instructions: Laceration Care, Adult, Laceration Care, Adult, Mlvi-gw-Hrae. - Medication Reconciliation Form, Thank You Letter, Antibiotic Education, Prescription Opioid Use form. - Follow up: Ismael Miller MD; When: 2 - 3 days; Reason: Recheck today's complaints, Re-evaluation by your physician. - Problem is new. - Symptoms have improved. Signatures: Ricky Olvera RN RN Marshal Iraheta MD MD cha Joaquin, Henry, RN RN hj Corrections: (The following items were deleted from the chart) 09:13 08:56 04/17/2019 08:56 Discharged to Home. Impression: Laceration without foreign body hj of left hand. Condition is Stable. Forms are Medication Reconciliation Form, Thank You Letter, Antibiotic Education, Prescription Opioid Use. Follow up: Ismael Miller; When: 2 - 3 days; Reason: Recheck today's complaints, Re-evaluation by your physician. Problem is new. Symptoms have improved. meggan
--- NOTE | 2019-04-17 11:03 | ER ---
Nurse's Notes [facility] Name: Jeb Lubin Sr Age: 78 yrs Sex: Male : 1940 Arrival Date: 04/17/2019 Time: 08:28 Bed 8 Private MD: Ismael Miller T Diagnosis: Laceration without foreign body of left hand Presentation: 04/17 08:35 Presenting complaint: Patient states: Pinched his finger in between a lid and a bottle sg of pain relieving cream, reports the bleeding has not stopped since it happened yesterday morning. reports being on a blood thinner. Transition of care: patient was not received from another setting of care. Complicating Factors: There are no complicating factors for this patient. Onset of symptoms was April 17, 2019. Risk Assessment: Do you want to hurt yourself or someone else? Patient reports no desire to harm self or others. Initial Sepsis Screen: Does the patient meet any 2 criteria? No. Patient's initial sepsis screen is negative. Does the patient have a suspected source of infection? No. Patient's initial sepsis screen is negative. Care prior to arrival: None. 08:35 Method Of Arrival: Ambulatory sg 08:35 Acuity: CECILIA 4 sg Triage Assessment: 08:47 General: Appears in no apparent distress. uncomfortable, Behavior is calm, cooperative, hj appropriate for age. Pain:. 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 - Social history:: Smoking status: unknown. - Ebola Screening: : Patient negative for fever greater than or equal to 101.5 degrees Fahrenheit, and additional compatible Ebola Virus Disease symptoms Patient denies exposure to infectious person Patient denies travel to an Ebola-affected area in the 21 days before illness onset No symptoms or risks identified at this time. - Family history:: not pertinent. Screenin:46 Abuse screen: Denies threats or abuse. Denies injuries from another. Nutritional hj screening: No deficits noted. Tuberculosis screening: No symptoms or risk factors identified. Fall Risk None identified. Assessment: 08:47 Musculoskeletal: No signs and/or symptoms reported regarding the musculoskeletal system.hj 08:47 General: Appears in no apparent distress. uncomfortable, Behavior is calm, cooperative, hj appropriate for age. Pain: Complains of pain in PIP of left index finger. Neuro: Level of Consciousness is awake, alert, obeys commands, Oriented to person, place, time, situation, Appropriate for age. Cardiovascular: Capillary refill < 3 seconds Patient's skin is warm and dry. Respiratory: Airway is patent Respiratory effort is even, unlabored, Respiratory pattern is regular, symmetrical. GI: No signs and/or symptoms were reported involving the gastrointestinal system. : No signs and/or symptoms were reported regarding the genitourinary system. EENT: No signs and/or symptoms were reported regarding the EENT system. Derm: No signs and/or symptoms reported regarding the dermatologic system. Injury Description: Laceration sustained to PIP of left index finger. 09:11 Reassessment: surgical strip in place wrapped with gauze and co band;. hj 09:11 Injury Description: Laceration is clean. Vital Signs: 08:44 BP 164 / 62; Pulse 50; Resp 16; Temp 98.0(TE); Pulse Ox 100% on R/A; Weight 68.95 kg; ss Height 5 ft. 5 in. (165.10 cm); Pain 2/10; 08:44 Body Mass Index 25.29 (68.95 kg, 165.10 cm) ED Course: 08:28 Patient arrived in ED. as 08:29 Ismael Miller MD is Private Physician. as 08:36 Triage completed. sg 08:36 Arm band placed on. sg 08:38 Marshal Hill MD is Attending Physician. meggan 08:46 Sean Stewart RN is Primary Nurse. hj 08:47 Patient has correct armband on for positive identification. Bed in low position. Call hj light in reach. Side rails up X 1. 08:52 No provider procedures requiring assistance completed. Patient did not have IV access ss during this emergency room visit. Wound care: to laceration located on PIP of left index finger was cleaned with Hibiclens, dressed with cling, Surgicel placed to affected area with small pressure dressing. Pt tolerated well.. 08:55 Ismael Miller MD is Referral Physician. meggan Administered Medications: 08:46 Drug: Tetanus-Diphtheria Toxoid Adult 0.5 ml {Interactive Developer: [employer]. Exp: 12/28/2022. Lot #: [id number]. } Route: IM; Site: left deltoid; 08:54 Follow up: Response: No adverse reaction; No change in condition 08:54 Follow up: Response: No adverse reaction Outcome: 08:56 Discharge ordered by . meggan 09:12 Discharged to home ambulatory. 09:12 Condition: stable 09:12 Discharge instructions given to patient, family, Instructed on discharge instructions, follow up and referral plans. wound care, Demonstrated understanding of instructions, follow-up care, wound care. 09:13 Patient left the ED. Signatures: Ricky Olvera RN RN Marshal Iraheta MD MD cha Martinez, Amelia as Smirch, Shelby, RN RN ss Joaquin, Henry, RN RN
[2019-04-17 13:12] VITALS: BP 164/62; TEMP 98; O2SAT 100
== END 2019-04-17 09:13 | disposition home or self-care (01) ==
LOC: ER 08:26
DX: S61.412A Laceration without foreign body of left hand, initial encounter (principal); W45.8XXA Other foreign body or object entering through skin, initial encounter; Z23 Encounter for immunization; Z88.0 Allergy status to penicillin; Z88.8 Allergy status to other drugs, medicaments and biological substances; I48.91 Unspecified atrial fibrillation; E11.9 Type 2 diabetes mellitus without complications; I10 Essential (primary) hypertension
CPT/HCPCS: 90471; 90714; 99283

== ENCOUNTER 2019-10-22 09:47 | Emergency (ER) | payer OTHER ==
--- OUTSIDE RECORDS SUMMARY | 2019-10-22 09:50 | XMS REPORT ---
:1940 [facility] Address [address] [place] [address] Care Team Providers Name Role Phone JOE MURRY Unavailable Unavailable Problems This patient has no known problems. Allergies, Adverse Reactions, Alerts This patient has no known allergies or adverse reactions. Medications This patient has no known medications. Results Test Description Test Time Test Comments Text Results Atomic Results Result Comments TISSUE EXAM 2018-10-04 14:19:00 Surgical Pathology Report Case: [id number] Authorizing Provider: Jhonathan Sharma MD Collected: 09/25/2018 1808 Ordering Location: [address] Received: 09/26/2018 0927 Service Pathologist: Haris Jeter MD Specimen: Plaque, arterial plaque ARTERY, LEFT FEMORAL, ENDARTERECTOMY:CALCIFIC ATHEROSCLEROTIC PLAQUE Signing Pathologist Direct Phone Line: [phone] signed by Haris Jeter MD on 10/04/2018 at 2:19 [id number]; [id number] femoral artery plaqueArterial plaqueThe specimen is received in saline labeled with the patient's information labeled "arterial plaque" and consists of previously opened calcified segment of tissue measuring 2.5 cm in length x 0.5 cm in circumference. 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 CG/pl Performed POCT-GLUCOSE METER 2018-09-28 13:44:00 Test Item Value Reference Range Comments POC-GLUCOSE METER (BEAKER) (test 326 mg/dL 70-110 TESTED AT [address] tznb=0196) [facility] [address] POCT-GLUCOSE [id number] 11:32:00 Test Item Value Reference Range Comments POC-GLUCOSE METER (BEAKER) 150 mg/dL 70-110 TESTED AT [place] [address] [facility] ([facility] ufyq=1788[facility] [address] [id number] 04:26:00 Test Item Value Reference Range Comments MAGNESIUM (BEAKER) (test evwc=489) 1.6 mg/dL 1.6-2.6 BASIC METABOLIC [id number] 04:26:00 Test Item Value Reference Range Comments SODIUM (BEAKER) (test 138 meq/L 136-145 fupk=407) POTASSIUM (BEAKER) (test 3.6 meq/L 3.5-5.1 jlqx=619) CHLORIDE (BEAKER) (test 103 meq/L 98-107 elzj=855) CO2 (BEAKER) (test 27 meq/L 22-29 ahfw=543) BLOOD UREA NITROGEN 30 mg/dL 7-21 (BEAKER) (test opwe=272) CREATININE (BEAKER) (test 1.04 mg/dL 0.57-1.25 dwhl=974) GLUCOSE RANDOM (BEAKER) 115 mg/dL 70-105 (test ynex=028) CALCIUM (BEAKER) (test 8.8 mg/dL 8.4-10.2 nprl=661) EGFR (BEAKER) (test 69 mL/min/1.73 sq m ESTIMATED GFR IS NOT ganv=9614) ACCURATE CREATININE CLEARANCE IN PREDICTING GLOMERULAR FILTRATION RATE. ESTIMATED GFR IS NOT APPLICABLE FOR DIALYSIS PATIENTS. CBC W/PLT COUNT & AUTO [id number] 04:09:00 Test Item Value Reference Range Comments WHITE BLOOD CELL COUNT (BEAKER) (test fvot=808) 9.4 K/ L 3.5-10.5 RED BLOOD CELL COUNT (BEAKER) (test weam=750) 2.67 M/ L 4.63-6.08 HEMOGLOBIN (BEAKER) (test ltiu=616) 8.4 GM/DL 13.7-17.5 HEMATOCRIT (BEAKER) (test owyc=264) 25.7 % 40.1-51.0 MEAN CORPUSCULAR VOLUME (BEAKER) (test avsf=287) 96.3 fL 79.0-92.2 MEAN CORPUSCULAR HEMOGLOBIN (BEAKER) (test 31.5 pg 25.7-32.2 dtjx=192) MEAN CORPUSCULAR HEMOGLOBIN CONC (BEAKER) (test 32.7 GM/DL 32.3-36.5 ujrb=849) RED CELL DISTRIBUTION WIDTH (BEAKER) (test 12.4 % 11.6-14.4 fzwr=545) PLATELET COUNT (BEAKER) (test atzx=568) 213 K/CU MM 150-450 MEAN PLATELET VOLUME (BEAKER) (test jbaf=874) 9.9 fL 9.4-12.4 NUCLEATED RED BLOOD CELLS (BEAKER) (test 0 /100 WBC 0-0 jquj=799) NEUTROPHILS RELATIVE PERCENT (BEAKER) (test 70 % ysem=841) LYMPHOCYTES RELATIVE PERCENT (BEAKER) (test 12 % cvzq=223) MONOCYTES RELATIVE PERCENT (BEAKER) (test 12 % xusm=865) EOSINOPHILS RELATIVE PERCENT (BEAKER) (test 5 % atoo=782) BASOPHILS RELATIVE PERCENT (BEAKER) (test 1 % opkm=767) NEUTROPHILS ABSOLUTE COUNT (BEAKER) (test 6.50 K/ L 1.78-5.38 fbyo=897) LYMPHOCYTES ABSOLUTE COUNT (BEAKER) (test 1.10 K/ L 1.32-3.57 wady=126) MONOCYTES ABSOLUTE COUNT (BEAKER) (test 1.16 K/ L 0.30-0.82 kvsp=677) EOSINOPHILS ABSOLUTE COUNT (BEAKER) (test 0.49 K/ L 0.04-0.54 iuyp=715) BASOPHILS ABSOLUTE COUNT (BEAKER) (test 0.05 K/ L 0.01-0.08 nwqk=601) IMMATURE GRANULOCYTES-RELATIVE PERCENT (BEAKER) 1 % 0-1 (test meoh=9998) [id number] 03:49:00 Test Item Value Reference Range Comments MAGNESIUM (BEAKER) (test txmj=928) 1.7 mg/dL 1.6-2.6 BASIC METABOLIC [id number] 03:49:00 Test Item Value Reference Range Comments SODIUM (BEAKER) (test 136 meq/L 136-145 xbji=943) POTASSIUM (BEAKER) (test 3.5 meq/L 3.5-5.1 ecag=224) CHLORIDE (BEAKER) (test 102 meq/L 98-107 uayf=494) CO2 (BEAKER) (test 27 meq/L 22-29 yjif=066) BLOOD UREA NITROGEN 31 mg/dL 7-21 (BEAKER) (test jdyx=734) CREATININE (BEAKER) (test 1.22 mg/dL 0.57-1.25 hojz=550) GLUCOSE RANDOM (BEAKER) 122 mg/dL 70-105 (test hfov=145) CALCIUM (BEAKER) (test 8.9 mg/dL 8.4-10.2 ctcy=066) EGFR (BEAKER) (test 57 mL/min/1.73 sq m ESTIMATED GFR IS NOT lsli=5849) ACCURATE CREATININE CLEARANCE IN PREDICTING GLOMERULAR FILTRATION RATE. ESTIMATED GFR IS NOT APPLICABLE FOR DIALYSIS PATIENTS. CBC W/PLT COUNT & AUTO [id number] 03:32:00 Test Item Value Reference Range Comments WHITE BLOOD CELL COUNT (BEAKER) (test drxu=747) 10.0 K/ L 3.5-10.5 RED BLOOD CELL COUNT (BEAKER) (test jgca=389) 2.75 M/ L 4.63-6.08 HEMOGLOBIN (BEAKER) (test fvme=093) 8.7 GM/DL 13.7-17.5 HEMATOCRIT (BEAKER) (test pifw=499) 26.7 % 40.1-51.0 MEAN CORPUSCULAR VOLUME (BEAKER) (test hxpf=586) 97.1 fL 79.0-92.2 MEAN CORPUSCULAR HEMOGLOBIN (BEAKER) (test 31.6 pg 25.7-32.2 cmoi=979) MEAN CORPUSCULAR HEMOGLOBIN CONC (BEAKER) (test 32.6 GM/DL 32.3-36.5 pdcq=101) RED CELL DISTRIBUTION WIDTH (BEAKER) (test 12.5 % 11.6-14.4 pdim=967) PLATELET COUNT (BEAKER) (test yzls=789) 189 K/CU MM 150-450 MEAN PLATELET VOLUME (BEAKER) (test jjwg=997) 9.9 fL 9.4-12.4 NUCLEATED RED BLOOD CELLS (BEAKER) (test 0 /100 WBC 0-0 vksh=955) NEUTROPHILS RELATIVE PERCENT (BEAKER) (test 74 % eeiu=953) LYMPHOCYTES RELATIVE PERCENT (BEAKER) (test 10 % txwq=523) MONOCYTES RELATIVE PERCENT (BEAKER) (test 11 % pcwr=271) EOSINOPHILS RELATIVE PERCENT (BEAKER) (test 4 % zpzm=273) BASOPHILS RELATIVE PERCENT (BEAKER) (test 1 % qbog=512) NEUTROPHILS ABSOLUTE COUNT (BEAKER) (test 7.39 K/ L 1.78-5.38 vyqw=612) LYMPHOCYTES ABSOLUTE COUNT (BEAKER) (test 0.99 K/ L 1.32-3.57 hpwh=823) MONOCYTES ABSOLUTE COUNT (BEAKER) (test 1.12 K/ L 0.30-0.82 mmnj=554) EOSINOPHILS ABSOLUTE COUNT (BEAKER) (test 0.40 K/ L 0.04-0.54 hmeq=701) BASOPHILS ABSOLUTE COUNT (BEAKER) (test 0.06 K/ L 0.01-0.08 zbhd=665) IMMATURE GRANULOCYTES-RELATIVE PERCENT (BEAKER) 1 % 0-1 (test kuge=4366) [id number] 10:17:00 Test Item Value Reference Range Comments MAGNESIUM (BEAKER) (test gaqg=168) 1.6 mg/dL 1.6-2.6 BASIC METABOLIC [id number] 10:17:00 Test Item Value Reference Range Comments SODIUM (BEAKER) (test 135 meq/L 136-145 riqn=991) POTASSIUM (BEAKER) (test 3.8 meq/L 3.5-5.1 zuui=987) CHLORIDE (BEAKER) (test 101 meq/L 98-107 swvl=521) CO2 (BEAKER) (test 27 meq/L 22-29 jzye=351) BLOOD UREA NITROGEN 30 mg/dL 7-21 (BEAKER) (test olvu=896) CREATININE (BEAKER) (test 1.23 mg/dL 0.57-1.25 exuu=549) GLUCOSE RANDOM (BEAKER) 120 mg/dL 70-105 (test pmds=101) CALCIUM (BEAKER) (test 8.6 mg/dL 8.4-10.2 jgji=957) EGFR (BEAKER) (test 57 mL/min/1.73 sq m ESTIMATED GFR IS NOT fmbp=1707) ACCURATE CREATININE CLEARANCE IN PREDICTING GLOMERULAR FILTRATION RATE. ESTIMATED GFR IS NOT APPLICABLE FOR DIALYSIS PATIENTS. CBC W/PLT COUNT & AUTO [id number] 03:47:00 Test Item Value Reference Range Comments WHITE BLOOD CELL COUNT (BEAKER) (test pncn=720) 10.0 K/ L 3.5-10.5 RED BLOOD CELL COUNT (BEAKER) (test mzfm=959) 2.80 M/ L 4.63-6.08 HEMOGLOBIN (BEAKER) (test rnzr=611) 8.9 GM/DL 13.7-17.5 HEMATOCRIT (BEAKER) (test vmii=923) 26.9 % 40.1-51.0 MEAN CORPUSCULAR VOLUME (BEAKER) (test lqic=433) 96.1 fL 79.0-92.2 MEAN CORPUSCULAR HEMOGLOBIN (BEAKER) (test 31.8 pg 25.7-32.2 lolx=592) MEAN CORPUSCULAR HEMOGLOBIN CONC (BEAKER) (test 33.1 GM/DL 32.3-36.5 nhxs=761) RED CELL DISTRIBUTION WIDTH (BEAKER) (test 12.5 % 11.6-14.4 vdke=841) PLATELET COUNT (BEAKER) (test ngza=921) 212 K/CU MM 150-450 MEAN PLATELET VOLUME (BEAKER) (test vfji=157) 9.4 fL 9.4-12.4 NUCLEATED RED BLOOD CELLS (BEAKER) (test 0 /100 WBC 0-0 wwwy=613) NEUTROPHILS RELATIVE PERCENT (BEAKER) (test 77 % asnr=656) LYMPHOCYTES RELATIVE PERCENT (BEAKER) (test 9 % kavu=393) MONOCYTES RELATIVE PERCENT (BEAKER) (test 12 % cxmp=490) EOSINOPHILS RELATIVE PERCENT (BEAKER) (test 2 % mwpj=366) BASOPHILS RELATIVE PERCENT (BEAKER) (test 0 % vluj=340) NEUTROPHILS ABSOLUTE COUNT (BEAKER) (test 7.65 K/ L 1.78-5.38 tcrx=550) LYMPHOCYTES ABSOLUTE COUNT (BEAKER) (test 0.92 K/ L 1.32-3.57 abgu=676) MONOCYTES ABSOLUTE COUNT (BEAKER) (test 1.17 K/ L 0.30-0.82 lmrg=902) EOSINOPHILS ABSOLUTE COUNT (BEAKER) (test 0.16 K/ L 0.04-0.54 kshc=836) BASOPHILS ABSOLUTE COUNT (BEAKER) (test 0.04 K/ L 0.01-0.08 nsnc=593) IMMATURE GRANULOCYTES-RELATIVE PERCENT (BEAKER) 1 % 0-1 (test rzbi=9245) [id number] 17:44:00 Test Item Value Reference Range Comments ACTIVATED CLOTTING TIME 131 sec TESTED AT [facility] [address] [facility] (BEAKER) (test rpzl=101) [facility] [address] BLOOD GAS, [id number] 17:15:00 Test Item Value Reference Range Comments PH ARTERIAL (BEAKER) (test yxds=716) 7.36 7.35-7.45 PCO2 ARTERIAL (BEAKER) (test cxni=946) 49 mmHg 35-45 PO2 ARTERIAL (BEAKER) (test yqap=254) 119 mmHg 80-90 O2 SATURATION ARTERIAL (BEAKER) (test dpzp=614) 98.3 % 96.0-97.0 HCO3 ARTERIAL (BEAKER) (test jwve=660) 28 mmol/L 21-29 BASE EXCESS ARTERIAL (BEAKER) (test tpjt=934) 1.2 mmol/L -2.0-3.0 PATIENT TEMPERATURE (BEAKER) (test rhhp=0071) 35.4 C FIO2 (BEAKER) (test oyyf=9135) 30.0 % SODIUM NA-STAT [id number] 17:15:00 Test Item Value Reference Range Comments SODIUM (BEAKER) (test dnbl=910) 132 meq/L 135-148 HGB/HCT (H&H) - STAT [id number] 17:15:00 Test Item Value Reference Range Comments HEMOGLOBIN (BEAKER) (test cnlm=276) 11.2 g/dL 13.0-16.8 HEMATOCRIT (BEAKER) (test sena=041) 33.0 % 40.0-50.0 GLUCOSE-STAT [id number] 17:14:00 Test Item Value Reference Range Comments GLUCOSE RANDOM (BEAKER) (test xbjm=766) 104 mg/dL 70-110 POTASSIUM-STAT [id number] 17:14:00 Test Item Value Reference Range Comments POTASSIUM (BEAKER) (test tros=770) 4.1 meq/L 3.6-5.5 [id number] 17:11:00 Test Item Value Reference Range Comments ACTIVATED CLOTTING TIME 268 sec TESTED AT [facility] [address] (BEAKER) (test zqom=201) [place] [id number] 16:12:00 Test Item Value Reference Range Comments ACTIVATED CLOTTING TIME 257 sec TESTED AT [facility] [address] (BEAKER) (test rhrv=241) [place] [id number] BASIC METABOLIC [id number] 07:04:00 Test Item Value Reference Range Comments SODIUM (BEAKER) (test 132 meq/L 136-145 qrtt=833) POTASSIUM (BEAKER) (test 4.0 meq/L 3.5-5.1 thdd=738) CHLORIDE (BEAKER) (test 99 meq/L 98-107 xklr=951) CO2 (BEAKER) (test 24 meq/L 22-29 xjot=220) BLOOD UREA NITROGEN 30 mg/dL 7-21 (BEAKER) (test ngmt=301) CREATININE (BEAKER) (test 1.14 mg/dL 0.57-1.25 aryu=369) GLUCOSE RANDOM (BEAKER) 101 mg/dL 70-105 (test jies=119) CALCIUM (BEAKER) (test 9.1 mg/dL 8.4-10.2 qibj=096) EGFR (BEAKER) (test 62 mL/min/1.73 sq m ESTIMATED GFR IS NOT ksly=3362) ACCURATE CREATININE CLEARANCE IN PREDICTING GLOMERULAR FILTRATION RATE. ESTIMATED GFR IS NOT APPLICABLE FOR DIALYSIS PATIENTS. CBC (HEMOGRAM ONLY)2018-09-25 06:47:00 Test Item Value Reference Range Comments WHITE BLOOD CELL COUNT (BEAKER) (test bpwi=093) 10.4 K/ L 3.5-10.5 RED BLOOD CELL COUNT (BEAKER) (test fkpz=651) 3.34 M/ L 4.63-6.08 HEMOGLOBIN (BEAKER) (test guuq=759) 10.6 GM/DL 13.7-17.5 HEMATOCRIT (BEAKER) (test yazc=503) 32.7 % 40.1-51.0 MEAN CORPUSCULAR VOLUME (BEAKER) (test khrz=680) 97.9 fL 79.0-92.2 MEAN CORPUSCULAR HEMOGLOBIN (BEAKER) (test 31.7 pg 25.7-32.2 ednm=097) MEAN CORPUSCULAR HEMOGLOBIN CONC (BEAKER) (test 32.4 GM/DL 32.3-36.5 lgxc=354) RED CELL DISTRIBUTION WIDTH (BEAKER) (test 12.4 % 11.6-14.4 ogpk=640) PLATELET COUNT (BEAKER) (test fuyk=541) 248 K/CU MM 150-450 MEAN PLATELET VOLUME (BEAKER) (test ovda=520) 9.4 fL 9.4-12.4 NUCLEATED RED BLOOD CELLS (BEAKER) (test 0 /100 WBC 0-0 xxfx=972) URINALYSIS W/ REFLEX URINE [id number] 13:29:00 Test Item Value Reference Range Comments COLOR (BEAKER) (test myyy=575) Light Yellow CLARITY (BEAKER) (test zkbs=836) Clear SPECIFIC GRAVITY UA (BEAKER) (test chcp=876) 1.006 1.001-1.035 PH UA (BEAKER) (test zgdp=774) 7.0 5.0-8.0 PROTEIN UA (BEAKER) (test rvif=624) Negative Negative GLUCOSE UA (BEAKER) (test ejqp=889) Negative Negative KETONES UA (BEAKER) (test ctzv=785) Negative Negative BILIRUBIN UA (BEAKER) (test ryzr=630) Negative Negative BLOOD UA (BEAKER) (test vhaa=719) Negative Negative NITRITE UA (BEAKER) (test ogvu=333) Negative Negative LEUKOCYTE ESTERASE UA (BEAKER) (test zsnp=790) Negative Negative UROBILINOGEN UA (BEAKER) (test pigq=018) 0.2 mg/dL 0.2-1.0 RBC UA (BEAKER) (test xsgh=798) < /HPF WBC UA (BEAKER) (test ukss=421) < /HPF SOURCE(BEAKER) (test ifhc=5664) BASIC METABOLIC [id number] 06:55:00 Test Item Value Reference Range Comments SODIUM (BEAKER) (test 132 meq/L 136-145 ajwn=073) POTASSIUM (BEAKER) (test 4.2 meq/L 3.5-5.1 mohr=552) CHLORIDE (BEAKER) (test 97 meq/L 98-107 pemf=800) CO2 (BEAKER) (test 26 meq/L 22-29 tmtk=345) BLOOD UREA NITROGEN 23 mg/dL 7-21 (BEAKER) (test cete=312) CREATININE (BEAKER) (test 1.14 mg/dL 0.57-1.25 wrup=873) GLUCOSE RANDOM (BEAKER) 79 mg/dL 70-105 (test jdoy=553) CALCIUM (BEAKER) (test 9.5 mg/dL 8.4-10.2 rben=138) EGFR (BEAKER) (test 62 mL/min/1.73 sq m ESTIMATED GFR IS NOT heio=2885) ACCURATE CREATININE CLEARANCE IN PREDICTING GLOMERULAR FILTRATION RATE. ESTIMATED GFR IS NOT APPLICABLE FOR DIALYSIS PATIENTS. CBC (HEMOGRAM ONLY)2018-09-24 05:48:00 Test Item Value Reference Range Comments WHITE BLOOD CELL COUNT (BEAKER) (test qbbf=806) 14.3 K/ L 3.5-10.5 RED BLOOD CELL COUNT (BEAKER) (test twbd=711) 3.91 M/ L 4.63-6.08 HEMOGLOBIN (BEAKER) (test bhjx=067) 12.3 GM/DL 13.7-17.5 HEMATOCRIT (BEAKER) (test scvc=491) 37.8 % 40.1-51.0 MEAN CORPUSCULAR VOLUME (BEAKER) (test bguk=378) 96.7 fL 79.0-92.2 MEAN CORPUSCULAR HEMOGLOBIN (BEAKER) (test 31.5 pg 25.7-32.2 ogqj=725) MEAN CORPUSCULAR HEMOGLOBIN CONC (BEAKER) (test 32.5 GM/DL 32.3-36.5 oegr=013) RED CELL DISTRIBUTION WIDTH (BEAKER) (test 12.5 % 11.6-14.4 llff=503) PLATELET COUNT (BEAKER) (test rzgu=087) 277 K/CU MM 150-450 MEAN PLATELET VOLUME (BEAKER) (test mlsp=814) 9.1 fL 9.4-12.4 NUCLEATED RED BLOOD CELLS (BEAKER) (test 0 /100 WBC 0-0 hmnz=096) POCT-GLUCOSE [id number] 18:09:00 Test Item Value Reference Range Comments POC-GLUCOSE METER (BEAKER) 99 mg/dL 70-110 TESTED AT [facility] [address] [facility] (test qgcp=2946) [facility] [address] POCT-GLUCOSE [id number] 13:47:00 Test Item Value Reference Range Comments POC-GLUCOSE METER (BEAKER) 144 mg/dL 70-110 TESTED AT [facility] [address] [facility] (test loaj=7485) [facility] [address] U/S, [id number] 11:20:00Laterality?->Left Reason for exam:->left sided pleural effusion [...] MDReport Verified Date/Time: 09/23/2018 11:20:35 Reading Location: [address] Ortho Consult Reading Room PROTHROMBIN TIME/[id number] 05:40:00 Test Item Value Reference Range Comments PROTIME (BEAKER) (test plkl=940) 14.7 seconds 11.7-14.7 INR (BEAKER) (test kizm=979) 1.2 <=5.9 RECOMMENDED COUMADIN/WARFARIN INR THERAPY RANGESSTANDARD DOSE: 2.0 - 3.0 Includes: PROPHYLAXIS forvenous thrombosis, systemic embolization; TREATMENT for venous thrombosis and/or pulmonary embolus.HIGH RISK: Target INR is 2.5-3.5 for patients with mechanical heart valves.[id number] 05:40:00 Test Item Value Reference Range Comments PARTIAL THROMBOPLASTIN TIME (BEAKER) (test 31.6 seconds 22.5-36.0 cdgm=495) [id number] 05:21:00 Test Item Value Reference Range Comments MAGNESIUM (BEAKER) (test auus=086) 1.6 mg/dL 1.6-2.6 BASIC METABOLIC [id number] 05:21:00 Test Item Value Reference Range Comments SODIUM (BEAKER) (test 132 meq/L 136-145 viio=986) POTASSIUM (BEAKER) (test 3.5 meq/L 3.5-5.1 tvkr=727) CHLORIDE (BEAKER) (test 96 meq/L 98-107 znmc=206) CO2 (BEAKER) (test 28 meq/L 22-29 ozbw=078) BLOOD UREA NITROGEN 22 mg/dL 7-21 (BEAKER) (test lcec=275) CREATININE (BEAKER) (test 1.06 mg/dL 0.57-1.25 yxuw=944) GLUCOSE RANDOM (BEAKER) 108 mg/dL 70-105 (test xipv=173) CALCIUM (BEAKER) (test 9.2 mg/dL 8.4-10.2 pjoh=318) EGFR (BEAKER) (test 67 mL/min/1.73 sq m ESTIMATED GFR IS NOT eaok=0689) ACCURATE CREATININE CLEARANCE IN PREDICTING GLOMERULAR FILTRATION RATE. ESTIMATED GFR IS NOT APPLICABLE FOR DIALYSIS PATIENTS. [id number] 05:20:00 Test Item Value Reference Range Comments MAGNESIUM (BEAKER) (test uefz=908) 1.5 mg/dL 1.6-2.6 BASIC METABOLIC [id number] 05:20:00 Test Item Value Reference Range Comments SODIUM (BEAKER) (test 135 meq/L 136-145 ppjp=991) POTASSIUM (BEAKER) (test 3.6 meq/L 3.5-5.1 dpve=348) CHLORIDE (BEAKER) (test 98 meq/L 98-107 yacy=119) CO2 (BEAKER) (test 29 meq/L 22-29 uajy=539) BLOOD UREA NITROGEN 22 mg/dL 7-21 (BEAKER) (test bcwq=795) CREATININE (BEAKER) (test 1.07 mg/dL 0.57-1.25 nsdq=838) GLUCOSE RANDOM (BEAKER) 108 mg/dL 70-105 (test omeu=448) CALCIUM (BEAKER) (test 9.3 mg/dL 8.4-10.2 mqop=833) EGFR (BEAKER) (test 67 mL/min/1.73 sq m ESTIMATED GFR IS NOT rafr=7167) ACCURATE CREATININE CLEARANCE IN PREDICTING GLOMERULAR FILTRATION RATE. ESTIMATED GFR IS NOT APPLICABLE FOR DIALYSIS PATIENTS. CBC W/PLT COUNT & AUTO [id number] 05:02:00 Test Item Value Reference Range Comments WHITE BLOOD CELL COUNT (BEAKER) (test uucb=330) 8.3 K/ L 3.5-10.5 RED BLOOD CELL COUNT (BEAKER) (test tkok=662) 3.67 M/ L 4.63-6.08 HEMOGLOBIN (BEAKER) (test thcf=705) 11.5 GM/DL 13.7-17.5 HEMATOCRIT (BEAKER) (test ryjj=748) 35.0 % 40.1-51.0 MEAN CORPUSCULAR VOLUME (BEAKER) (test uisb=510) 95.4 fL 79.0-92.2 MEAN CORPUSCULAR HEMOGLOBIN (BEAKER) (test 31.3 pg 25.7-32.2 mqnk=868) MEAN CORPUSCULAR HEMOGLOBIN CONC (BEAKER) (test 32.9 GM/DL 32.3-36.5 zhcw=666) RED CELL DISTRIBUTION WIDTH (BEAKER) (test 12.5 % 11.6-14.4 dwfw=659) PLATELET COUNT (BEAKER) (test wtbh=086) 285 K/CU MM 150-450 MEAN PLATELET VOLUME (BEAKER) (test yszd=516) 9.2 fL 9.4-12.4 NUCLEATED RED BLOOD CELLS (BEAKER) (test 0 /100 WBC 0-0 cgom=425) NEUTROPHILS RELATIVE PERCENT (BEAKER) (test 71 % tfbt=377) LYMPHOCYTES RELATIVE PERCENT (BEAKER) (test 10 % wbjo=893) MONOCYTES RELATIVE PERCENT (BEAKER) (test 12 % zkqp=333) EOSINOPHILS RELATIVE PERCENT (BEAKER) (test 7 % beat=761) BASOPHILS RELATIVE PERCENT (BEAKER) (test 1 % qtsl=900) NEUTROPHILS ABSOLUTE COUNT (BEAKER) (test 5.88 K/ L 1.78-5.38 edcx=869) LYMPHOCYTES ABSOLUTE COUNT (BEAKER) (test 0.79 K/ L 1.32-3.57 jsdt=976) MONOCYTES ABSOLUTE COUNT (BEAKER) (test 1.01 K/ L 0.30-0.82 cucm=864) EOSINOPHILS ABSOLUTE COUNT (BEAKER) (test 0.55 K/ L 0.04-0.54 blcs=407) BASOPHILS ABSOLUTE COUNT (BEAKER) (test 0.06 K/ L 0.01-0.08 twzq=060) IMMATURE GRANULOCYTES-RELATIVE PERCENT (BEAKER) 1 % 0-1 (test wmlp=4284) CBC (HEMOGRAM ONLY)2018-09-23 05:02:00 Test Item Value Reference Range Comments WHITE BLOOD CELL COUNT (BEAKER) (test qurv=225) 8.3 K/ L 3.5-10.5 RED BLOOD CELL COUNT (BEAKER) (test gbvh=563) 3.67 M/ L 4.63-6.08 HEMOGLOBIN (BEAKER) (test ufoj=735) 11.5 GM/DL 13.7-17.5 HEMATOCRIT (BEAKER) (test vozp=912) 35.0 % 40.1-51.0 MEAN CORPUSCULAR VOLUME (BEAKER) (test tmyj=116) 95.4 fL 79.0-92.2 MEAN CORPUSCULAR HEMOGLOBIN (BEAKER) (test 31.3 pg 25.7-32.2 cnwj=519) MEAN CORPUSCULAR HEMOGLOBIN CONC (BEAKER) (test 32.9 GM/DL 32.3-36.5 qsko=692) RED CELL DISTRIBUTION WIDTH (BEAKER) (test 12.5 % 11.6-14.4 joih=735) PLATELET COUNT (BEAKER) (test jrer=207) 285 K/CU MM 150-450 MEAN PLATELET VOLUME (BEAKER) (test fmpz=320) 9.2 fL 9.4-12.4 NUCLEATED RED BLOOD CELLS (BEAKER) (test 0 /100 WBC 0-0 xnga=349) POCT-GLUCOSE [id number] 21:35:00 Test Item Value Reference Range Comments POC-GLUCOSE METER (BEAKER) 133 mg/dL 70-110 TESTED AT [address] (test oejj=0401) [place] [id number] POCT-GLUCOSE [id number] 17:37:00 Test Item Value Reference Range Comments POC-GLUCOSE METER (BEAKER) 147 mg/dL 70-110 TESTED AT [address] (test mwoz=3791) [place] [id number] 17:19:00 Test Item Value Reference Range Comments MAGNESIUM (BEAKER) (test npcs=137) 1.5 mg/dL 1.6-2.6 BASIC METABOLIC [id number] 17:19:00 Test Item Value Reference Range Comments SODIUM (BEAKER) (test 136 meq/L 136-145 bwsw=268) POTASSIUM (BEAKER) (test 3.4 meq/L 3.5-5.1 jdwk=019) CHLORIDE (BEAKER) (test 97 meq/L 98-107 uxhj=124) CO2 (BEAKER) (test 31 meq/L 22-29 isfd=103) BLOOD UREA NITROGEN 21 mg/dL 7-21 (BEAKER) (test fysp=631) CREATININE (BEAKER) (test 1.12 mg/dL 0.57-1.25 dinn=716) GLUCOSE RANDOM (BEAKER) 114 mg/dL 70-105 (test emmo=170) CALCIUM (BEAKER) (test 9.6 mg/dL 8.4-10.2 phvw=047) EGFR (BEAKER) (test 63 mL/min/1.73 sq m ESTIMATED GFR IS NOT jfiq=4140) ACCURATE CREATININE CLEARANCE IN PREDICTING GLOMERULAR FILTRATION RATE. ESTIMATED GFR IS NOT APPLICABLE FOR DIALYSIS PATIENTS. POCT-GLUCOSE [id number] 13:08:00 Test Item Value Reference Range Comments POC-GLUCOSE METER (BEAKER) 106 mg/dL 70-110 TESTED AT [place] [id number] [facility] (test zqnu=9358) [facility] [id number] POCT-GLUCOSE [id number] 21:49:00 Test Item Value Reference Range Comments POC-GLUCOSE METER (BEAKER) 116 mg/dL 70-110 TESTED AT [address] (test jtxa=8481) [facility] [id number] POCT-GLUCOSE [id number] 17:56:00 Test Item Value Reference Range Comments POC-GLUCOSE METER (BEAKER) 142 mg/dL 70-110 TESTED AT [address] (test tlcj=3213) [facility] [address] CT, CTA, [id number] 14:55:00Addendum BeginsREPORT STATUS:A Addendum:There is increased density visualized in the left pleural fluid collection. Clinical correlation is needed if an inflammatory or hemorrhagic process is suspected.I agree with the previously described non vascular findings. Signed: Shirlene Ackerman MDReport Verified Date/Time: 09/21/2018 14:55:20 Reading Location: [place] [address] Angio Body Reading RoomAddendum EndsFINAL REPORT CT [...] artery have increased calcific atherosclerosis seen with hmog-jr-lgrdqxlz lesion identified. The right common femoral arteryis [...] An addendum will be dictated by the Usability Strategist Radiologist regarding the nonvascular findings. Signed: Shawn Barnes MDReport Verified Date/Time: 09/21/2018 14:01:54 Reading Location: [place] [address], CTA [id number] 14:55:00Addendum BeginsREPORT STATUS :A Addendum:There is increased density visualized in the left pleural fluid collection. Clinical correlation is needed if an inflammatory or hemorrhagic process is suspected.I agree with the previously described non vascular findings. Signed: Shirlene Ackerman MDReport Verified Date/Time : 09/21/2018 14:55:20 Reading Location: [place] [address] Angio Body Reading RoomAddendum EndsFINAL REPORT CT [...] artery have increased calcific atherosclerosis seen with okvy-wc-gphukoin lesion identified. The right common femoral arteryis [...] An addendum will be dictated by the Usability Strategist Radiologist regarding the nonvascular findings. Signed: Shawn Barnes MDReport Verified Date/Time: 09/21/2018 14:01:54 Reading Location: [place] [address] Cardiology MRI [facility] METABOLIC [id number] 07:01:00 Test Item Value Reference Range Comments SODIUM (BEAKER) (test 129 meq/L 136-145 yifm=944) POTASSIUM (BEAKER) (test 3.3 meq/L 3.5-5.1 jrla=397) CHLORIDE (BEAKER) (test 96 meq/L 98-107 isgz=407) CO2 (BEAKER) (test 24 meq/L 22-29 eqyb=880) BLOOD UREA NITROGEN 20 mg/dL 7-21 (BEAKER) (test mgnh=152) CREATININE (BEAKER) (test 1.07 mg/dL 0.57-1.25 ffja=796) GLUCOSE RANDOM (BEAKER) 104 mg/dL 70-105 (test nspf=409) CALCIUM (BEAKER) (test 8.8 mg/dL 8.4-10.2 wjqt=479) EGFR (BEAKER) (test 67 mL/min/1.73 sq m ESTIMATED GFR IS NOT rbxz=4012) ACCURATE CREATININE CLEARANCE IN PREDICTING GLOMERULAR FILTRATION RATE. ESTIMATED GFR IS NOT APPLICABLE FOR DIALYSIS PATIENTS. POCT-GLUCOSE [id number] 22:18:00 Test Item Value Reference Range Comments POC-GLUCOSE METER (BEAKER) 176 mg/dL 70-110 TESTED AT [facility] [address] [facility] (test cjak=7518) [facility] [address] RAD, CHEST, 1 VIEW, NON [id number] 20:32:00Reason for exam:->SOBShould this be performed at [...] Verified Date/Time: 09/20/2018 20:32 :40 Reading Location: [facility] Radiology Reading Room POCT-GLUCOSE [id number] 17:05:00 Test Item Value Reference Range Comments POC-GLUCOSE METER (BEAKER) 164 mg/dL 70-110 TESTED AT [address] (test rkty=1442) [place] [address] POCT-GLUCOSE [id number] 13:55:00 Test Item Value Reference Range Comments POC-GLUCOSE METER (BEAKER) 105 mg/dL 70-110 TESTED AT [address] (test vgsr=8191) [place] [id number] POCT-GLUCOSE [id number] 09:01:00 Test Item Value Reference Range Comments POC-GLUCOSE METER (BEAKER) 116 mg/dL 70-110 TESTED AT [address] (test hnnr=0037) [place] [id number] BASIC METABOLIC [id number] 05:36:00 Test Item Value Reference Range Comments SODIUM (BEAKER) (test 131 meq/L 136-145 bxaj=189) POTASSIUM (BEAKER) (test 3.8 meq/L 3.5-5.1 xcay=801) CHLORIDE (BEAKER) (test 100 meq/L 98-107 glug=468) CO2 (BEAKER) (test 23 meq/L 22-29 xnme=409) BLOOD UREA NITROGEN 12 mg/dL 7-21 (BEAKER) (test cvra=802) CREATININE (BEAKER) (test 0.81 mg/dL 0.57-1.25 kiji=722) GLUCOSE RANDOM (BEAKER) 102 mg/dL 70-105 (test pyag=624) CALCIUM (BEAKER) (test 9.1 mg/dL 8.4-10.2 mhox=323) EGFR (BEAKER) (test 92 mL/min/1.73 sq m ESTIMATED GFR IS NOT nmje=9242) ACCURATE CREATININE CLEARANCE IN PREDICTING GLOMERULAR FILTRATION RATE. ESTIMATED GFR IS NOT APPLICABLE FOR DIALYSIS PATIENTS. POCT-GLUCOSE [id number] 23:13:00 Test Item Value Reference Range Comments POC-GLUCOSE METER (BEAKER) 119 mg/dL 70-110 TESTED AT [address] (test qass=6416) [place] [address] POCT-GLUCOSE [id number] 18:21:00 Test Item Value Reference Range Comments POC-GLUCOSE METER (BEAKER) 155 mg/dL 70-110 TESTED AT [address] (test caui=0338) [place] [address] HEMOGLOBIN [id number] 12:52:00 Test Item Value Reference Range Comments HEMOGLOBIN A1C (BEAKER) (test ybgy=049) 6.4 % 4.3-6.1 POCT-GLUCOSE [id number] 09:22:00 Test Item Value Reference Range Comments POC-GLUCOSE METER (BEAKER) 99 mg/dL 70-110 TESTED AT [address] (test wdbo=2682) [place] [address] BASIC METABOLIC [id number] 06:48:00 Test Item Value Reference Range Comments SODIUM (BEAKER) (test 128 meq/L 136-145 strh=094) POTASSIUM (BEAKER) (test 4.2 meq/L 3.5-5.1 ujhd=529) CHLORIDE (BEAKER) (test 99 meq/L 98-107 tqsl=421) CO2 (BEAKER) (test 24 meq/L 22-29 lohn=788) BLOOD UREA NITROGEN 15 mg/dL 7-21 (BEAKER) (test pmub=876) CREATININE (BEAKER) (test 0.81 mg/dL 0.57-1.25 eofm=300) GLUCOSE RANDOM (BEAKER) 96 mg/dL 70-105 (test wqgo=849) CALCIUM (BEAKER) (test 8.8 mg/dL 8.4-10.2 isyh=461) EGFR (BEAKER) (test 92 mL/min/1.73 sq m ESTIMATED GFR IS NOT pwxw=4239) ACCURATE CREATININE CLEARANCE IN PREDICTING GLOMERULAR FILTRATION RATE. ESTIMATED GFR IS NOT APPLICABLE FOR DIALYSIS PATIENTS. TROPONIN [id number] 06:46:00 Test Item Value Reference Range Comments TROPONIN I (BEAKER) (test mzja=240) 0.01 ng/mL 0.00-0.03 Troponin I (TnI) levels [...] and persistent tachyarrhythmia.CBC W/PLT COUNT & AUTO [id number] 06:29:00 Test Item Value Reference Range Comments WHITE BLOOD CELL COUNT (BEAKER) (test joqo=554) 8.2 K/ L 3.5-10.5 RED BLOOD CELL COUNT (BEAKER) (test llqg=804) 3.40 M/ L 4.63-6.08 HEMOGLOBIN (BEAKER) (test twat=173) 10.8 GM/DL 13.7-17.5 HEMATOCRIT (BEAKER) (test scfs=731) 32.1 % 40.1-51.0 MEAN CORPUSCULAR VOLUME (BEAKER) (test hphr=754) 94.4 fL 79.0-92.2 MEAN CORPUSCULAR HEMOGLOBIN (BEAKER) (test 31.8 pg 25.7-32.2 yuqo=758) MEAN CORPUSCULAR HEMOGLOBIN CONC (BEAKER) (test 33.6 GM/DL 32.3-36.5 bcgu=505) RED CELL DISTRIBUTION WIDTH (BEAKER) (test 12.5 % 11.6-14.4 adiz=552) PLATELET COUNT (BEAKER) (test eazs=494) 257 K/CU MM 150-450 MEAN PLATELET VOLUME (BEAKER) (test ujdu=315) 9.6 fL 9.4-12.4 NUCLEATED RED BLOOD CELLS (BEAKER) (test 0 /100 WBC 0-0 imxr=245) NEUTROPHILS RELATIVE PERCENT (BEAKER) (test 75 % iheq=744) LYMPHOCYTES RELATIVE PERCENT (BEAKER) (test 10 % aohv=331) MONOCYTES RELATIVE PERCENT (BEAKER) (test 11 % aftg=933) EOSINOPHILS RELATIVE PERCENT (BEAKER) (test 3 % bsmf=527) BASOPHILS RELATIVE PERCENT (BEAKER) (test 0 % qsbb=630) NEUTROPHILS ABSOLUTE COUNT (BEAKER) (test 6.13 K/ L 1.78-5.38 qxyb=615) LYMPHOCYTES ABSOLUTE COUNT (BEAKER) (test 0.81 K/ L 1.32-3.57 bapt=448) MONOCYTES ABSOLUTE COUNT (BEAKER) (test 0.88 K/ L 0.30-0.82 jdtk=075) EOSINOPHILS ABSOLUTE COUNT (BEAKER) (test 0.27 K/ L 0.04-0.54 pxaa=304) BASOPHILS ABSOLUTE COUNT (BEAKER) (test 0.03 K/ L 0.01-0.08 lezr=552) IMMATURE GRANULOCYTES-RELATIVE PERCENT (BEAKER) 1 % 0-1 (test apui=9020) TROPONIN [id number] 01:37:00 Test Item Value Reference Range Comments TROPONIN I (BEAKER) (test oyxl=279) < ng/mL 0.00-0.03 Troponin I (TnI) levels [...] NATRIURETIC PEPTIDE (BEAKER) (test 1260 pg/mL 0-100 jlnd=065) COMPREHENSIVE METABOLIC [id number] 18:56:00 Test Item Value Reference Range Comments TOTAL PROTEIN (BEAKER) 6.6 gm/dL 6.0-8.3 (test jozf=832) ALBUMIN (BEAKER) (test 3.8 g/dL 3.5-5.0 mvoc=2609) ALKALINE PHOSPHATASE 90 U/L 40-150 (BEAKER) (test cqju=058) BILIRUBIN TOTAL (BEAKER) 0.8 mg/dL 0.2-1.2 (test rsfs=456) SODIUM (BEAKER) (test 130 meq/L 136-145 cfev=741) POTASSIUM (BEAKER) (test 3.8 meq/L 3.5-5.1 yiwg=201) CHLORIDE (BEAKER) (test 96 meq/L 98-107 smdz=167) CO2 (BEAKER) (test 26 meq/L 22-29 matm=895) BLOOD UREA NITROGEN 20 mg/dL 7-21 (BEAKER) (test koup=566) CREATININE (BEAKER) (test 0.98 mg/dL 0.57-1.25 kukr=650) GLUCOSE RANDOM (BEAKER) 103 mg/dL 70-105 (test igop=024) CALCIUM (BEAKER) (test 9.3 mg/dL 8.4-10.2 vair=368) AST (SGOT) (BEAKER) (test 26 U/L 5-34 zjxo=606) ALT (SGPT) (BEAKER) (test 32 U/L 6-55 jrru=856) EGFR (BEAKER) (test 74 mL/min/1.73 sq m ESTIMATED GFR IS NOT kqjd=6895) ACCURATE CREATININE CLEARANCE IN PREDICTING GLOMERULAR FILTRATION RATE. ESTIMATED GFR IS NOT APPLICABLE FOR DIALYSIS PATIENTS. CBC W/PLT COUNT & AUTO [id number] 18:35:00 Test Item Value Reference Range Comments WHITE BLOOD CELL COUNT (BEAKER) (test nnbv=950) 10.5 K/ L 3.5-10.5 RED BLOOD CELL COUNT (BEAKER) (test jozq=586) 3.51 M/ L 4.63-6.08 HEMOGLOBIN (BEAKER) (test zdnl=813) 11.1 GM/DL 13.7-17.5 HEMATOCRIT (BEAKER) (test anmy=900) 33.5 % 40.1-51.0 MEAN CORPUSCULAR VOLUME (BEAKER) (test vgnk=005) 95.4 fL 79.0-92.2 MEAN CORPUSCULAR HEMOGLOBIN (BEAKER) (test 31.6 pg 25.7-32.2 gmka=934) MEAN CORPUSCULAR HEMOGLOBIN CONC (BEAKER) (test 33.1 GM/DL 32.3-36.5 zyar=943) RED CELL DISTRIBUTION WIDTH (BEAKER) (test 12.4 % 11.6-14.4 twtw=939) PLATELET COUNT (BEAKER) (test blgp=894) 268 K/CU MM 150-450 MEAN PLATELET VOLUME (BEAKER) (test ixsl=097) 9.3 fL 9.4-12.4 NUCLEATED RED BLOOD CELLS (BEAKER) (test 0 /100 WBC 0-0 vhwp=403) NEUTROPHILS RELATIVE PERCENT (BEAKER) (test 75 % qdcz=962) LYMPHOCYTES RELATIVE PERCENT (BEAKER) (test 9 % ukta=933) MONOCYTES RELATIVE PERCENT (BEAKER) (test 12 % hdnh=592) EOSINOPHILS RELATIVE PERCENT (BEAKER) (test 3 % obpd=342) BASOPHILS RELATIVE PERCENT (BEAKER) (test 0 % jkcu=324) NEUTROPHILS ABSOLUTE COUNT (BEAKER) (test 7.89 K/ L 1.78-5.38 rbky=844) LYMPHOCYTES ABSOLUTE COUNT (BEAKER) (test 0.97 K/ L 1.32-3.57 zmyw=879) MONOCYTES ABSOLUTE COUNT (BEAKER) (test 1.21 K/ L 0.30-0.82 dhmu=454) EOSINOPHILS ABSOLUTE COUNT (BEAKER) (test 0.32 K/ L 0.04-0.54 lcdk=272) BASOPHILS ABSOLUTE COUNT (BEAKER) (test 0.04 K/ L 0.01-0.08 icmm=184) IMMATURE GRANULOCYTES-RELATIVE PERCENT (BEAKER) 1 % 0-1 (test khhj=4733) POCT-GLUCOSE [id number] 17:14:00 Test Item Value Reference Range Comments POC-GLUCOSE METER (BEAKER) 172 mg/dL 70-110 TESTED AT [facility] [address] (test oihu=9319) [facility] [address]
--- NOTE | 2019-10-22 10:26 | EKG ---
Test Date: 2019-10-22 Test Time: 10:11:27 [employer] Manager: HEIDI MEASUREMENT RESULTS: Intervals: Rate: 47 DC: 128 QRSD: 92 QT: 510 QTc: 451 [place]: P: 26 DC: 128 QRS: 22 T: 41 INTERPRETIVE STATEMENTS: Marked sinus bradycardia Abnormal ECG Compared to ECG 03/09/2019 06:11:14 No significant changes Electronically Signed On 10-22-19 10:26:16 DIRECTOR OF RETAIL ANALYTICS by Abraham Segura
[2019-10-22 10:51] LABS: Absolute Lymphocytes (CBC) 1.1 K/uL (0.7-4.9); Basophils % 0.5 % (0-1.3); Hematocrit 34.5 % (39.6-49.0); Lymphocytes % 11.4 % (15.3-44.8); MPV 8.5 fL (7.6-11.3); RBC Red Blood Cell Count 3.87 M/uL (4.33-5.43)
[2019-10-22 11:10] LABS: BUN Blood Urea Nitrogen 22 mg/dL (7-18); Bicarbonate 27 mmol/L (21-32); Glucose Level 103 mg/dL (74-106); NT PRO-BNP 1340 pg/mL (<450); Potassium 4.4 mmol/L (3.5-5.1); Sodium Level 136 mmol/L (136-145); Troponin (Emerg Dept Use Only) < 0.02 ng/mL (0.0-0.045)
[2019-10-22] MEDS ORDERED: FUROSEMIDE 40 MG/4 ML VIAL ONE (11:34)
--- NOTE | 2019-10-22 12:17 | RAD REPORT ---
EXAM DESCRIPTION: [place] Single View10/22/2019 12:05 pm CLINICAL HISTORY: Shortness of breath COMPARISON: February 2019 FINDINGS: Left base is hazy consistent which may represent a combination of pleural thickening and a telectasis Mild bilateral interstitial opacities appear chronic The heart is mildly enlarged Postsurgical changes involve the chest.
--- NOTE | 2019-10-22 12:53 | ER ---
Nurse's Notes [facility] Name: Jeb Lubin Sr Age: 79 yrs Sex: Male : 1940 Arrival Date: 10/22/2019 Time: 09:49 Bed 25 Private MD: Ismael Miller T Diagnosis: Unspecified combined systolic (congestive) and diastolic (congestive) heart failure;Dyspnea, unspecified Presentation: 10/22 10:08 Presenting complaint: Patient states: sob SINCE TUESDAY, + COUGH, DENIES FEVER. iw Transition of care: patient was not received from another setting of care. Onset of symptoms was October 20, 2019. Risk Assessment: Do you want to hurt yourself or someone else? Patient reports no desire to harm self or others. Initial Sepsis Screen: Does the patient meet any 2 criteria? No. Patient's initial sepsis screen is negative. Does the patient have a suspected source of infection? No. Patient's initial sepsis screen is negative. Care prior to arrival: None. 10:08 Method Of Arrival: Wheelchair iw 10:08 Acuity: CECILIA 3 iw Triage Assessment: 13:13 Respiratory: Onset: The symptoms/episode began/occurred ca1 Historical: - Allergies: 10:10 PENICILLINS; iw 10:10 Xarelto; iw - Home Meds: 10:15 amlodipine 10 mg tab 1 tab once daily [Active]; atorvastatin 40 mg oral tab 1 tab once iw daily [Active]; clopidogrel 75 mg oral tab 1 tab once daily [Active]; furosemide 40 mg Oral tab 1 tab once daily [Active]; losartan 100 mg oral tab 1 tab once daily [Active]; pantoprazole 40 mg oral TbEC 1 tab once daily [Active]; memantine 10 mg oral tab 1 tab 2 times per day [Active]; Sotalol Oral 2 times per day [Active]; Vitamin D3 5,000 unit Oral tab twice a day [Active]; Vitamin C 1,000 mg oral tab daily [Active]; [place]-3 350 mg-235 mg- 90 mg-597 mg oral cpDR twice a day [Active]; Ocuvite 590-03-8-150 jw-wgfr-vc-mg oral cap daily [Active]; Osteo Bi-Flex 250-200 mg oral tab twice a day [Active]; 12:02 galantamine 4 mg oral tab 1 tab 2 times per day [Active]; em - PMHx: 10:15 Atrial Fib; Diabetes - NIDDM; Hypertension; iw - PSHx: 10:15 CABG; heart valve replacemnet; iw - Immunization history:: Adult Immunizations up to date. - Social history:: Smoking status: Patient/guardian denies using tobacco, the patient reports quitting approximately 25 years ago. - Ebola Screening: : Patient negative for fever greater than or equal to 101.5 degrees Fahrenheit, and additional compatible Ebola Virus Disease symptoms Patient denies exposure to infectious person Patient denies travel to an Ebola-affected area in the 21 days before illness onset No symptoms or risks identified at this time. - Family history:: not pertinent. - Hospitalizations: : No recent hospitalization is reported. Screenin:32 Abuse screen: Denies threats or abuse. Denies injuries from another. Nutritional ca1 screening: No deficits noted. Tuberculosis screening: No symptoms or risk factors identified. Fall Risk IV access (20 points). Ambulatory Aid- Crutches/Cane/Walker (15 pts). Assessment: 10:32 General: Appears in no apparent distress. comfortable, Behavior is calm, cooperative, ca1 appropriate for age. Pain: Denies pain. Neuro: Level of Consciousness is awake, alert, obeys commands, Oriented to person, place, time. Cardiovascular: Heart tones S1 S2 present Capillary refill < 3 seconds Patient's skin is warm and dry. Rhythm is sinus bradycardia. Respiratory: Reports shortness of breath on exertion since 3 days ago cough that is since 3 days ago Airway is patent Respiratory effort is even, unlabored, Respiratory pattern is regular, symmetrical, Breath sounds are clear bilaterally. GI: Abdomen is round non-distended, Bowel sounds present X 4 quads. Abd is soft and non tender X 4 quads. : No signs and/or symptoms were reported regarding the genitourinary system. EENT: No signs and/or symptoms were reported regarding the EENT system. Derm: Skin is intact, is healthy with good turgor, Skin is pink, warm \\T\\ dry. Musculoskeletal: Circulation, motion, and sensation intact. Capillary refill < 3 seconds. 11:15 Reassessment: Xray at bedside. ca1 11:29 Reassessment: Patient appears in no apparent distress at this time. Patient and/or ca1 family updated on plan of care and expected duration. Pain level reassessed. Patient is alert, oriented x 3, equal unlabored respirations, skin warm/dry/pink. 12:23 Reassessment: Patient appears in no apparent distress at this time. Patient is alert, ca1 oriented x 3, equal unlabored respirations, skin warm/dry/pink. Dr. Rios at bedside discussing plan of care. 12:35 Reassessment: Pt ambulated around nurse's station. Ambulated with quick steady gait. No ca1 c/o SOB while ambulating. Sat back on bed, SPO2 at 96% RA. Pt stated, "I got a little winded but I feel better". Notified provider. 13:10 Reassessment: Patient appears in no apparent distress at this time. Patient is alert, ca1 oriented x 3, equal unlabored respirations, skin warm/dry/pink. Vital Signs: 10:15 BP 167 / 59; Pulse 50; Resp 22 S; Temp 97.9; Pulse Ox 97% on R/A; Weight 68.04 kg; iw Height 5 ft. 4 in. (162.56 cm); Pain 4/10; 10:51 BP 136 / 62; Pulse 53; Resp 16 S; Pulse Ox 98% on R/A; ca1 11:30 BP 155 / 55; Pulse 50; Resp 20 S; Pulse Ox 99% on R/A; ca1 12:23 BP 155 / 61; Pulse 50; Resp 17 S; Pulse Ox 100% on R/A; ca1 13:10 BP 162 / 58; Pulse 52; Resp 16 S; Pulse Ox 98% on R/A; ca1 10:15 Body Mass Index 25.75 (68.04 kg, 162.56 cm) iw ED Course: 09:49 Patient arrived in ED. mr 09:49 Ismael Miller MD is Private Physician. mr 10:00 Beatriz Person, RN is Primary Nurse. ca1 10:09 Triage completed. iw 10:10 Andriy Rios MD is Attending Physician. rn 10:11 EKG done, by histology technologist. reviewed by Andriy Rios MD. at1 10:15 Arm band placed on. iw 10:30 Initial lab(s) drawn, by wa, sent to lab. Inserted saline lock: 20 gauge in right dn1 antecubital area, using aseptic technique. Blood collected. 10:32 No provider procedures requiring assistance completed. ca1 10:32 Patient has correct armband on for positive identification. Placed in gown. Bed in low ca1 position. Call light in reach. Side rails up X2. school lunch monitor on. Pulse ox on. NIBP on. Warm blanket given. Head of bed elevated. 12:06 XRAY CXR (1 view) In Process Unspecified. EDMS 13:11 IV discontinued, intact, bleeding controlled, No redness/swelling at site. Pressure ca1 dressing applied. Administered Medications: 11:34 Drug: Lasix 40 mg Route: IVP; Site: right antecubital; ca1 12:35 Follow up: Urine output 760 ml; Response: No adverse reaction ca1 Output: 11:42 Urine: 320ml (Voided); Total: 320ml. ca1 12:34 Urine: 440ml (Voided); Total: 760ml. ca1 12:35 Urine: 760ml; Total: 1520ml. ca1 Outcome: 12:53 Discharge ordered by MD. rn 13:11 Discharged to home ambulatory, with family. ca1 13:11 Condition: stable 13:11 Discharge instructions given to patient, Instructed on discharge instructions, follow up and referral plans. Demonstrated understanding of instructions, follow-up care. 13:15 Patient left the ED. ca1 Signatures: Dispatcher [employer] Dorota Mitchell Edgar, RN Dipika Jimenez RN RN iw Nieto, Roman, MD MD rn Gonzales, Amanda, recycling tech EKG Tat1 Beatriz Person RN RN ca1 Asaf Coe RN RN dn1 Corrections: (The following items were deleted from the chart) 11:30 11:15 BP 155 / 55; Pulse 50bpm; Resp 20bpm; Pulse Ox 99% RA; ca1 ca1
--- NOTE | 2019-10-22 12:54 | EDPHYS ---
Physician Documentation [facility] Name: Jeb Lubin Sr Age: 79 yrs Sex: Male : 1940 Arrival Date: 10/22/2019 Time: 09:49 Bed 25 Private MD: Ismael Miller T ED Physician Andriy Rios HPI: 10/22 11:23 This 79 yrs old Male presents to ER via Wheelchair with complaints of rn Breathing Difficulty. 11:23 The patient has shortness of breath with light activity. rn 11:23 Onset: The symptoms/episode began/occurred 2 day(s) ago. Duration: The symptoms are rn intermittent. The patient's shortness of breath is aggravated by exertion, light activity. Severity of symptoms: At their worst the symptoms were moderate in the emergency department the symptoms are unchanged. The patient has experienced similar episodes in the past. Reports 2 days of dyspnea, + clear cough, no fever, worse with exertion. No chest pain.. Historical: - Allergies: 10:10 PENICILLINS; iw 10:10 Xarelto; iw - Home Meds: 10:15 amlodipine 10 mg tab 1 tab once daily [Active]; atorvastatin 40 mg oral tab 1 tab once iw daily [Active]; clopidogrel 75 mg oral tab 1 tab once daily [Active]; furosemide 40 mg Oral tab 1 tab once daily [Active]; losartan 100 mg oral tab 1 tab once daily [Active]; pantoprazole 40 mg oral TbEC 1 tab once daily [Active]; memantine 10 mg oral tab 1 tab 2 times per day [Active]; Sotalol Oral 2 times per day [Active]; Vitamin D3 5,000 unit Oral tab twice a day [Active]; Vitamin C 1,000 mg oral tab daily [Active]; [place]hill-3 350 mg-235 mg- 90 mg-597 mg oral cpDR twice a day [Active]; Ocuvite 880-70-1-150 ub-lypc-hp-mg oral cap daily [Active]; Osteo Bi-Flex 250-200 mg oral tab twice a day [Active]; 12:02 galantamine 4 mg oral tab 1 tab 2 times per day [Active]; em - PMHx: 10:15 Atrial Fib; Diabetes - NIDDM; Hypertension; iw - PSHx: 10:15 CABG; heart valve replacemnet; iw - Immunization history:: Adult Immunizations up to date. - Social history:: Smoking status: Patient/guardian denies using tobacco, the patient reports quitting approximately 25 years ago. - Ebola Screening: : Patient negative for fever greater than or equal to 101.5 degrees Fahrenheit, and additional compatible Ebola Virus Disease symptoms Patient denies exposure to infectious person Patient denies travel to an Ebola-affected area in the 21 days before illness onset No symptoms or risks identified at this time. - Family history:: not pertinent. - Hospitalizations: : No recent hospitalization is reported. ROS: 11:23 Constitutional: Negative for fever, chills, and weight loss, Eyes: Negative for injury, rn pain, redness, and discharge, Neck: Negative for injury, pain, and swelling, Cardiovascular: Negative for chest pain, palpitations, and edema, Respiratory: + sob and cough Abdomen/GI: Negative for abdominal pain, nausea, vomiting, diarrhea, and constipation, MS/Extremity: Negative for injury and deformity, Skin: Negative for injury, rash, and discoloration, Neuro: Negative for headache, weakness, numbness, tingling, and seizure. Exam: 11:23 Constitutional: This is a well developed, well nourished patient who is awake, alert, rn mild tachypnea Head/Face: Normocephalic, atraumatic. Eyes: Pupils equal round and reactive to light, extra-ocular motions intact. Lids and lashes normal. Conjunctiva and sclera are non-icteric and not injected. Cornea within normal limits. Periorbital areas with no swelling, redness, or edema. ENT: MMM, no stridor Cardiovascular: Regular rhythm, bradycardia Respiratory: + mild tachypnea with crackles at bases Abdomen/GI: soft, non-tender MS/ Extremity: Pulses equal, no cyanosis. Neuro: Awake and alert, GCS 15, oriented to person, place, time, and situation. Cranial nerves II-XII grossly intact. Motor strength 5/5 in all extremities. Sensory grossly intact. Vital Signs: 10:15 BP 167 / 59; Pulse 50; Resp 22 S; Temp 97.9; Pulse Ox 97% on R/A; Weight 68.04 kg; iw Height 5 ft. 4 in. (162.56 cm); Pain 4/10; 10:51 BP 136 / 62; Pulse 53; Resp 16 S; Pulse Ox 98% on R/A; ca1 11:30 BP 155 / 55; Pulse 50; Resp 20 S; Pulse Ox 99% on R/A; ca1 12:23 BP 155 / 61; Pulse 50; Resp 17 S; Pulse Ox 100% on R/A; ca1 13:10 BP 162 / 58; Pulse 52; Resp 16 S; Pulse Ox 98% on R/A; ca1 10:15 Body Mass Index 25.75 (68.04 kg, 162.56 cm) iw MDM: 10:10 Patient medically screened. rn 12:49 Differential diagnosis: CHF exacerbation, pulmonary edema. Data reviewed: vital signs, rn nurses notes, lab test result(s), radiologic studies, plain films, and as a result, I will discharge patient. Counseling: I had a detailed discussion with the patient and/or guardian regarding: the historical points, exam findings, and any diagnostic results supporting the discharge/admit diagnosis, lab results, radiology results, the need for outpatient follow up, to return to the emergency department if symptoms worsen or persist or if there are any questions or concerns that arise at home. Response to treatment: the patient's symptoms have markedly improved after treatment, and as a result, I will discharge patient. Special discussion: I discussed with the patient/guardian in detail that at this point there is no indication for admission to the hospital. It is understood, however, that if the symptoms persist or worsen the patient needs to return immediately for re-evaluation. Based on the history and exam findings, there is no indication for further emergent testing or inpatient evaluation. I discussed with the patient/guardian the need to see the mash preparatory operator for further evaluation of the symptoms. I discussed with the patient/guardian the need to see the primary care provider for further evaluation of the symptoms. ED course: Pt improved, daughter here and after long discussion we have determined he is not taking his lasix correctly is supposed to be BID, and only taking his AM dose. Offered overnight observation for diuresis, patient wants to go home. Ambulated around ER and sats only down to 95%, feels much better, ambulatory to bathroom, will go home and take his medication and prescribed, return precautions given and understood. . 10/22 10:18 Order name: OSMAR; Complete Time: 11:22 rn 10/22 10:18 Order name: CBC with Diff; Complete Time: 11: rn 10/22 10:18 Order name: XRAY CXR (1 view); Complete Time: 12: rn 10/22 10:18 Order name: NT PRO-BNP; Complete Time: : rn 10/22 10:18 Order name: Troponin (emerg Dept Use Only); Complete Time: 11: rn 10/22 10:18 Order name: EKG; Complete Time: : rn 10/22 10:18 Order name: Cardiac monitoring; Complete Time: : rn 10/22 10:18 Order name: EKG - Nurse/Tech; Complete Time: : rn 10/22 10:18 Order name: IV Saline Lock; Complete Time: : rn 10/22 10:18 Order name: Labs collected and sent; Complete Time: : rn 10/22 10:18 Order name: O2 Per Protocol; Complete Time: : rn 10/22 10:18 Order name: O2 Sat Monitoring; Complete Time: : rn Administered Medications: 11:34 Drug: Lasix 40 mg Route: IVP; Site: right antecubital; ca1 12:35 Follow up: Urine output 760 ml; Response: No adverse reaction ca1 Disposition: 10/22/19 12:53 Discharged to Home. Impression: Unspecified combined systolic (congestive) and diastolic (congestive) heart failure, Dyspnea, unspecified. - Condition is Stable. - Discharge Instructions: Heart Failure, Shortness of Breath. - Medication Reconciliation Form, Thank You Letter, Antibiotic Education, Prescription Opioid Use form. - Follow up: Private Physician; When: As needed; Reason: Recheck today's complaints, Re-evaluation by your physician. - Problem is new. - Symptoms have improved. Signatures: Dispatcher [employer] EDDerek Barnard RN RN em Williams, Irene, RN RN iw Nieto, Roman, MD MD rn AcBeatriz lopez RN RN ca1 Corrections: (The following items were deleted from the chart) 13:15 12:53 10/22/2019 12:53 Discharged to Home. Impression: Unspecified combined systolic ca1 (congestive) and diastolic (congestive) heart failure; Dyspnea, unspecified. Condition is Stable. Forms are Medication Reconciliation Form, Thank You Letter, Antibiotic Education, Prescription Opioid Use. Follow up: Private Physician; When: As needed; Reason: Recheck today's complaints, Re-evaluation by your physician. Problem is new. Symptoms have improved. rn
[2019-10-22 13:50] VITALS: TEMP 97.9
[2019-10-22 13:55] VITALS: BP 162/58; O2SAT 98
== END 2019-10-22 13:15 | disposition home or self-care (01) ==
LOC: ER 09:47
DX: I50.40 Unspecified combined systolic (congestive) and diastolic (congestive) heart failure (principal); Z88.0 Allergy status to penicillin; Z88.8 Allergy status to other drugs, medicaments and biological substances; E11.9 Type 2 diabetes mellitus without complications; I10 Essential (primary) hypertension; Z95.1 Presence of aortocoronary bypass graft
CPT/HCPCS: 93005; 85025; 80048; 36415; 84484; 83880; 71045; 96374; 99285; J1940

== ENCOUNTER 2019-11-09 09:00 | Emergency (ER) | payer OTHER ==
--- OUTSIDE RECORDS SUMMARY | 2019-11-09 09:09 | XMS REPORT ---
:1940 [facility] [address] [place] [address] Care Team Providers Name Role Phone JOE MURRY Unavailable Unavailable Problems This patient has no known problems. Allergies, Adverse Reactions, Alerts This patient has no known allergies or adverse reactions. Medications This patient has no known medications. Results Test Description Test Time Test Comments Text Results Atomic Results Result Comments TISSUE EXAM 2018-10-04 14:19:00 Surgical Pathology Report Case: [id number] Authorizing Provider: Jhonathan Sharma MD Collected: 09/25/2018 1808 Ordering Location: [address] Received: 09/26/2018 0927 Service Pathologist: Haris Jeter MD Specimen: Plaque, arterial plaque ARTERY, LEFT FEMORAL, ENDARTERECTOMY:CALCIFIC ATHEROSCLEROTIC PLAQUE Signing Pathologist Direct Phone Line: [phone] signed by Haris Jeter MD on 10/04/2018 at 2:19 [id number]; [id number] femoral artery plaqueArterial plaqueThe specimen is received in saline labeled with the patient's information labeled "arterial plaque" and consists of previously opened calcified segment of tissue measuring 2.5 cm in length x 0.5 cm in circumference. Wafer Line Worker sections are submitted A1 for decalcification. CG/pl Performed POCT-GLUCOSE METER 2018-09-28 13:44:00 Test Item Value Reference Range Comments POC-GLUCOSE METER (BEAKER) (test 326 mg/dL 70-110 TESTED AT [address] uvlw=8131) [facility] [address] POCT-GLUCOSE [id number] 11:32:00 Test Item Value Reference Range Comments POC-GLUCOSE METER (BEAKER) 150 mg/dL 70-110 TESTED AT [place] [address] [facility] (test blka=5057) [facility] [address] [id number] 04:26:00 Test Item Value Reference Range Comments MAGNESIUM (BEAKER) (test zixe=975) 1.6 mg/dL 1.6-2.6 BASIC METABOLIC [id number] 04:26:00 Test Item Value Reference Range Comments SODIUM (BEAKER) (test 138 meq/L 136-145 iiyx=444) POTASSIUM (BEAKER) (test 3.6 meq/L 3.5-5.1 sxvu=102) CHLORIDE (BEAKER) (test 103 meq/L 98-107 cehw=417) CO2 (BEAKER) (test 27 meq/L 22-29 oshw=019) BLOOD UREA NITROGEN 30 mg/dL 7-21 (BEAKER) (test vqfh=060) CREATININE (BEAKER) (test 1.04 mg/dL 0.57-1.25 hnzs=578) GLUCOSE RANDOM (BEAKER) 115 mg/dL 70-105 (test hxyy=741) CALCIUM (BEAKER) (test 8.8 mg/dL 8.4-10.2 qmix=220) EGFR (BEAKER) (test 69 mL/min/1.73 sq m ESTIMATED GFR IS NOT zaca=8491) ACCURATE CREATININE CLEARANCE IN PREDICTING GLOMERULAR FILTRATION RATE. ESTIMATED GFR IS NOT APPLICABLE FOR DIALYSIS PATIENTS. CBC W/PLT COUNT & AUTO [id number] 04:09:00 Test Item Value Reference Range Comments WHITE BLOOD CELL COUNT (BEAKER) (test jmed=001) 9.4 K/ L 3.5-10.5 RED BLOOD CELL COUNT (BEAKER) (test hnbp=767) 2.67 M/ L 4.63-6.08 HEMOGLOBIN (BEAKER) (test ojbx=335) 8.4 GM/DL 13.7-17.5 HEMATOCRIT (BEAKER) (test aljn=765) 25.7 % 40.1-51.0 MEAN CORPUSCULAR VOLUME (BEAKER) (test vevp=360) 96.3 fL 79.0-92.2 MEAN CORPUSCULAR HEMOGLOBIN (BEAKER) (test 31.5 pg 25.7-32.2 jick=374) MEAN CORPUSCULAR HEMOGLOBIN CONC (BEAKER) (test 32.7 GM/DL 32.3-36.5 dxua=312) RED CELL DISTRIBUTION WIDTH (BEAKER) (test 12.4 % 11.6-14.4 hiwi=148) PLATELET COUNT (BEAKER) (test bcbt=941) 213 K/CU MM 150-450 MEAN PLATELET VOLUME (BEAKER) (test wxwn=538) 9.9 fL 9.4-12.4 NUCLEATED RED BLOOD CELLS (BEAKER) (test 0 /100 WBC 0-0 eyuq=966) NEUTROPHILS RELATIVE PERCENT (BEAKER) (test 70 % ifmg=354) LYMPHOCYTES RELATIVE PERCENT (BEAKER) (test 12 % ackd=268) MONOCYTES RELATIVE PERCENT (BEAKER) (test 12 % ohiv=193) EOSINOPHILS RELATIVE PERCENT (BEAKER) (test 5 % eomb=479) BASOPHILS RELATIVE PERCENT (BEAKER) (test 1 % zbhy=767) NEUTROPHILS ABSOLUTE COUNT (BEAKER) (test 6.50 K/ L 1.78-5.38 hvjm=212) LYMPHOCYTES ABSOLUTE COUNT (BEAKER) (test 1.10 K/ L 1.32-3.57 oftt=326) MONOCYTES ABSOLUTE COUNT (BEAKER) (test 1.16 K/ L 0.30-0.82 bftv=482) EOSINOPHILS ABSOLUTE COUNT (BEAKER) (test 0.49 K/ L 0.04-0.54 afin=027) BASOPHILS ABSOLUTE COUNT (BEAKER) (test 0.05 K/ L 0.01-0.08 ecji=784) IMMATURE GRANULOCYTES-RELATIVE PERCENT (BEAKER) 1 % 0-1 (test ttwy=8826) [id number] 03:49:00 Test Item Value Reference Range Comments MAGNESIUM (BEAKER) (test rqxd=826) 1.7 mg/dL 1.6-2.6 BASIC METABOLIC [id number] 03:49:00 Test Item Value Reference Range Comments SODIUM (BEAKER) (test 136 meq/L 136-145 nxuk=352) POTASSIUM (BEAKER) (test 3.5 meq/L 3.5-5.1 njqm=437) CHLORIDE (BEAKER) (test 102 meq/L 98-107 zwzv=752) CO2 (BEAKER) (test 27 meq/L 22-29 mjsq=131) BLOOD UREA NITROGEN 31 mg/dL 7-21 (BEAKER) (test hgrc=815) CREATININE (BEAKER) (test 1.22 mg/dL 0.57-1.25 dkou=275) GLUCOSE RANDOM (BEAKER) 122 mg/dL 70-105 (test ycid=393) CALCIUM (BEAKER) (test 8.9 mg/dL 8.4-10.2 jvzr=685) EGFR (BEAKER) (test 57 mL/min/1.73 sq m ESTIMATED GFR IS NOT mffy=0134) ACCURATE CREATININE CLEARANCE IN PREDICTING GLOMERULAR FILTRATION RATE. ESTIMATED GFR IS NOT APPLICABLE FOR DIALYSIS PATIENTS. CBC W/PLT COUNT & AUTO [id number] 03:32:00 Test Item Value Reference Range Comments WHITE BLOOD CELL COUNT (BEAKER) (test qsfd=717) 10.0 K/ L 3.5-10.5 RED BLOOD CELL COUNT (BEAKER) (test cygy=222) 2.75 M/ L 4.63-6.08 HEMOGLOBIN (BEAKER) (test eybp=024) 8.7 GM/DL 13.7-17.5 HEMATOCRIT (BEAKER) (test hfdk=959) 26.7 % 40.1-51.0 MEAN CORPUSCULAR VOLUME (BEAKER) (test dhgc=081) 97.1 fL 79.0-92.2 MEAN CORPUSCULAR HEMOGLOBIN (BEAKER) (test 31.6 pg 25.7-32.2 lexx=340) MEAN CORPUSCULAR HEMOGLOBIN CONC (BEAKER) (test 32.6 GM/DL 32.3-36.5 ssju=759) RED CELL DISTRIBUTION WIDTH (BEAKER) (test 12.5 % 11.6-14.4 vexm=865) PLATELET COUNT (BEAKER) (test jvul=221) 189 K/CU MM 150-450 MEAN PLATELET VOLUME (BEAKER) (test naln=945) 9.9 fL 9.4-12.4 NUCLEATED RED BLOOD CELLS (BEAKER) (test 0 /100 WBC 0-0 qwwq=342) NEUTROPHILS RELATIVE PERCENT (BEAKER) (test 74 % qwsr=136) LYMPHOCYTES RELATIVE PERCENT (BEAKER) (test 10 % vslf=933) MONOCYTES RELATIVE PERCENT (BEAKER) (test 11 % olxp=040) EOSINOPHILS RELATIVE PERCENT (BEAKER) (test 4 % xbor=581) BASOPHILS RELATIVE PERCENT (BEAKER) (test 1 % hwjn=514) NEUTROPHILS ABSOLUTE COUNT (BEAKER) (test 7.39 K/ L 1.78-5.38 qdog=079) LYMPHOCYTES ABSOLUTE COUNT (BEAKER) (test 0.99 K/ L 1.32-3.57 lxrc=445) MONOCYTES ABSOLUTE COUNT (BEAKER) (test 1.12 K/ L 0.30-0.82 fizf=620) EOSINOPHILS ABSOLUTE COUNT (BEAKER) (test 0.40 K/ L 0.04-0.54 hpvk=192) BASOPHILS ABSOLUTE COUNT (BEAKER) (test 0.06 K/ L 0.01-0.08 cfej=095) IMMATURE GRANULOCYTES-RELATIVE PERCENT (BEAKER) 1 % 0-1 (test dxra=8030) [id number] 10:17:00 Test Item Value Reference Range Comments MAGNESIUM (BEAKER) (test tnzp=380) 1.6 mg/dL 1.6-2.6 BASIC METABOLIC [id number] 10:17:00 Test Item Value Reference Range Comments SODIUM (BEAKER) (test 135 meq/L 136-145 yvok=460) POTASSIUM (BEAKER) (test 3.8 meq/L 3.5-5.1 jfli=557) CHLORIDE (BEAKER) (test 101 meq/L 98-107 lurj=268) CO2 (BEAKER) (test 27 meq/L 22-29 yqfv=674) BLOOD UREA NITROGEN 30 mg/dL 7-21 (BEAKER) (test uwhz=649) CREATININE (BEAKER) (test 1.23 mg/dL 0.57-1.25 sywk=173) GLUCOSE RANDOM (BEAKER) 120 mg/dL 70-105 (test alct=312) CALCIUM (BEAKER) (test 8.6 mg/dL 8.4-10.2 nfvd=911) EGFR (BEAKER) (test 57 mL/min/1.73 sq m ESTIMATED GFR IS NOT qjvx=9682) ACCURATE CREATININE CLEARANCE IN PREDICTING GLOMERULAR FILTRATION RATE. ESTIMATED GFR IS NOT APPLICABLE FOR DIALYSIS PATIENTS. CBC W/PLT COUNT & AUTO [id number] 03:47:00 Test Item Value Reference Range Comments WHITE BLOOD CELL COUNT (BEAKER) (test oovn=836) 10.0 K/ L 3.5-10.5 RED BLOOD CELL COUNT (BEAKER) (test ellm=467) 2.80 M/ L 4.63-6.08 HEMOGLOBIN (BEAKER) (test gvni=952) 8.9 GM/DL 13.7-17.5 HEMATOCRIT (BEAKER) (test qnga=083) 26.9 % 40.1-51.0 MEAN CORPUSCULAR VOLUME (BEAKER) (test pvig=734) 96.1 fL 79.0-92.2 MEAN CORPUSCULAR HEMOGLOBIN (BEAKER) (test 31.8 pg 25.7-32.2 ykrk=454) MEAN CORPUSCULAR HEMOGLOBIN CONC (BEAKER) (test 33.1 GM/DL 32.3-36.5 wvrk=631) RED CELL DISTRIBUTION WIDTH (BEAKER) (test 12.5 % 11.6-14.4 gvuf=284) PLATELET COUNT (BEAKER) (test qaxz=903) 212 K/CU MM 150-450 MEAN PLATELET VOLUME (BEAKER) (test rotl=754) 9.4 fL 9.4-12.4 NUCLEATED RED BLOOD CELLS (BEAKER) (test 0 /100 WBC 0-0 kdab=826) NEUTROPHILS RELATIVE PERCENT (BEAKER) (test 77 % elpx=051) LYMPHOCYTES RELATIVE PERCENT (BEAKER) (test 9 % itfn=719) MONOCYTES RELATIVE PERCENT (BEAKER) (test 12 % qaaz=894) EOSINOPHILS RELATIVE PERCENT (BEAKER) (test 2 % vymm=340) BASOPHILS RELATIVE PERCENT (BEAKER) (test 0 % nswh=158) NEUTROPHILS ABSOLUTE COUNT (BEAKER) (test 7.65 K/ L 1.78-5.38 lahq=457) LYMPHOCYTES ABSOLUTE COUNT (BEAKER) (test 0.92 K/ L 1.32-3.57 dcjv=373) MONOCYTES ABSOLUTE COUNT (BEAKER) (test 1.17 K/ L 0.30-0.82 oicd=068) EOSINOPHILS ABSOLUTE COUNT (BEAKER) (test 0.16 K/ L 0.04-0.54 kadc=767) BASOPHILS ABSOLUTE COUNT (BEAKER) (test 0.04 K/ L 0.01-0.08 tcjh=191) IMMATURE GRANULOCYTES-RELATIVE PERCENT (BEAKER) 1 % 0-1 (test lmjs=4288) [id number] 17:44:00 Test Item Value Reference Range Comments ACTIVATED CLOTTING TIME 131 sec TESTED AT [facility] [address] [facility] (BEAKER) (test hssi=630) [facility] [address] BLOOD GAS, [id number] 17:15:00 Test Item Value Reference Range Comments PH ARTERIAL (BEAKER) (test pjel=671) 7.36 7.35-7.45 PCO2 ARTERIAL (BEAKER) (test zgta=787) 49 mmHg 35-45 PO2 ARTERIAL (BEAKER) (test eyek=378) 119 mmHg 80-90 O2 SATURATION ARTERIAL (BEAKER) (test kdpi=619) 98.3 % 96.0-97.0 HCO3 ARTERIAL (BEAKER) (test kflq=639) 28 mmol/L 21-29 BASE EXCESS ARTERIAL (BEAKER) (test zugn=886) 1.2 mmol/L -2.0-3.0 PATIENT TEMPERATURE (BEAKER) (test riad=4059) 35.4 C FIO2 (BEAKER) (test robx=2017) 30.0 % SODIUM NA-STAT [id number] 17:15:00 Test Item Value Reference Range Comments SODIUM (BEAKER) (test pttp=991) 132 meq/L 135-148 HGB/HCT (H&H) - STAT [id number] 17:15:00 Test Item Value Reference Range Comments HEMOGLOBIN (BEAKER) (test hpqr=330) 11.2 g/dL 13.0-16.8 HEMATOCRIT (BEAKER) (test zzfh=093) 33.0 % 40.0-50.0 GLUCOSE-STAT [id number] 17:14:00 Test Item Value Reference Range Comments GLUCOSE RANDOM (BEAKER) (test xsxr=216) 104 mg/dL 70-110 POTASSIUM-STAT [id number] 17:14:00 Test Item Value Reference Range Comments POTASSIUM (BEAKER) (test isgr=877) 4.1 meq/L 3.6-5.5 [id number] 17:11:00 Test Item Value Reference Range Comments ACTIVATED CLOTTING TIME 268 sec TESTED AT [facility] [address] (BEAKER) (test ybnc=712) [place] [id number] 16:12:00 Test Item Value Reference Range Comments ACTIVATED CLOTTING TIME 257 sec TESTED AT [facility] [address] (BEAKER) (test vrbk=813) [place] [id number] BASIC METABOLIC [id number] 07:04:00 Test Item Value Reference Range Comments SODIUM (BEAKER) (test 132 meq/L 136-145 vclq=872) POTASSIUM (BEAKER) (test 4.0 meq/L 3.5-5.1 gfur=363) CHLORIDE (BEAKER) (test 99 meq/L 98-107 zsei=548) CO2 (BEAKER) (test 24 meq/L 22-29 saeo=029) BLOOD UREA NITROGEN 30 mg/dL 7-21 (BEAKER) (test owam=530) CREATININE (BEAKER) (test 1.14 mg/dL 0.57-1.25 jtbz=256) GLUCOSE RANDOM (BEAKER) 101 mg/dL 70-105 (test ejzy=131) CALCIUM (BEAKER) (test 9.1 mg/dL 8.4-10.2 lvwo=809) EGFR (BEAKER) (test 62 mL/min/1.73 sq m ESTIMATED GFR IS NOT uiiq=0588) ACCURATE CREATININE CLEARANCE IN PREDICTING GLOMERULAR FILTRATION RATE. ESTIMATED GFR IS NOT APPLICABLE FOR DIALYSIS PATIENTS. CBC (HEMOGRAM ONLY)2018-09-25 06:47:00 Test Item Value Reference Range Comments WHITE BLOOD CELL COUNT (BEAKER) (test lyfr=541) 10.4 K/ L 3.5-10.5 RED BLOOD CELL COUNT (BEAKER) (test wsrg=147) 3.34 M/ L 4.63-6.08 HEMOGLOBIN (BEAKER) (test igsx=523) 10.6 GM/DL 13.7-17.5 HEMATOCRIT (BEAKER) (test njhf=580) 32.7 % 40.1-51.0 MEAN CORPUSCULAR VOLUME (BEAKER) (test rkty=669) 97.9 fL 79.0-92.2 MEAN CORPUSCULAR HEMOGLOBIN (BEAKER) (test 31.7 pg 25.7-32.2 zzys=600) MEAN CORPUSCULAR HEMOGLOBIN CONC (BEAKER) (test 32.4 GM/DL 32.3-36.5 twuh=681) RED CELL DISTRIBUTION WIDTH (BEAKER) (test 12.4 % 11.6-14.4 kcqd=718) PLATELET COUNT (BEAKER) (test xxyh=171) 248 K/CU MM 150-450 MEAN PLATELET VOLUME (BEAKER) (test pjjr=481) 9.4 fL 9.4-12.4 NUCLEATED RED BLOOD CELLS (BEAKER) (test 0 /100 WBC 0-0 kbrl=318) URINALYSIS W/ REFLEX URINE [id number] 13:29:00 Test Item Value Reference Range Comments COLOR (BEAKER) (test dllc=288) Light Yellow CLARITY (BEAKER) (test xszt=337) Clear SPECIFIC GRAVITY UA (BEAKER) (test zktm=046) 1.006 1.001-1.035 PH UA (BEAKER) (test sqai=334) 7.0 5.0-8.0 PROTEIN UA (BEAKER) (test shbt=340) Negative Negative GLUCOSE UA (BEAKER) (test omml=130) Negative Negative KETONES UA (BEAKER) (test mxbt=465) Negative Negative BILIRUBIN UA (BEAKER) (test tpba=796) Negative Negative BLOOD UA (BEAKER) (test gbbf=114) Negative Negative NITRITE UA (BEAKER) (test jhvc=010) Negative Negative LEUKOCYTE ESTERASE UA (BEAKER) (test tzvh=498) Negative Negative UROBILINOGEN UA (BEAKER) (test dcyl=564) 0.2 mg/dL 0.2-1.0 RBC UA (BEAKER) (test azep=574) < /HPF WBC UA (BEAKER) (test pedo=548) < /HPF SOURCE(BEAKER) (test kypi=3742) BASIC METABOLIC [id number] 06:55:00 Test Item Value Reference Range Comments SODIUM (BEAKER) (test 132 meq/L 136-145 ugjt=363) POTASSIUM (BEAKER) (test 4.2 meq/L 3.5-5.1 hcng=134) CHLORIDE (BEAKER) (test 97 meq/L 98-107 kgdx=123) CO2 (BEAKER) (test 26 meq/L 22-29 cidt=606) BLOOD UREA NITROGEN 23 mg/dL 7-21 (BEAKER) (test ytnh=573) CREATININE (BEAKER) (test 1.14 mg/dL 0.57-1.25 fwyt=811) GLUCOSE RANDOM (BEAKER) 79 mg/dL 70-105 (test hpjo=145) CALCIUM (BEAKER) (test 9.5 mg/dL 8.4-10.2 ccgd=415) EGFR (BEAKER) (test 62 mL/min/1.73 sq m ESTIMATED GFR IS NOT xwfz=8099) ACCURATE CREATININE CLEARANCE IN PREDICTING GLOMERULAR FILTRATION RATE. ESTIMATED GFR IS NOT APPLICABLE FOR DIALYSIS PATIENTS. CBC (HEMOGRAM ONLY)2018-09-24 05:48:00 Test Item Value Reference Range Comments WHITE BLOOD CELL COUNT (BEAKER) (test qpgc=256) 14.3 K/ L 3.5-10.5 RED BLOOD CELL COUNT (BEAKER) (test dwel=088) 3.91 M/ L 4.63-6.08 HEMOGLOBIN (BEAKER) (test hdsr=402) 12.3 GM/DL 13.7-17.5 HEMATOCRIT (BEAKER) (test ujsp=603) 37.8 % 40.1-51.0 MEAN CORPUSCULAR VOLUME (BEAKER) (test izun=214) 96.7 fL 79.0-92.2 MEAN CORPUSCULAR HEMOGLOBIN (BEAKER) (test 31.5 pg 25.7-32.2 zmux=891) MEAN CORPUSCULAR HEMOGLOBIN CONC (BEAKER) (test 32.5 GM/DL 32.3-36.5 qiyu=025) RED CELL DISTRIBUTION WIDTH (BEAKER) (test 12.5 % 11.6-14.4 xsax=830) PLATELET COUNT (BEAKER) (test cqta=709) 277 K/CU MM 150-450 MEAN PLATELET VOLUME (BEAKER) (test bpcy=955) 9.1 fL 9.4-12.4 NUCLEATED RED BLOOD CELLS (BEAKER) (test 0 /100 WBC 0-0 dgyg=379) POCT-GLUCOSE [id number] 18:09:00 Test Item Value Reference Range Comments POC-GLUCOSE METER (BEAKER) 99 mg/dL 70-110 TESTED AT [facility] [address] [facility] (test hmcs=9802) [facility] [address] POCT-GLUCOSE [id number] 13:47:00 Test Item Value Reference Range Comments POC-GLUCOSE METER (BEAKER) 144 mg/dL 70-110 TESTED AT [facility] [address] [facility] (test jsot=3414) [facility] [address] U/S, [id number] 11:20:00Laterality?->Left Reason for exam:->left sided pleural effusion [...] MDReport Verified Date/Time: 09/23/2018 11:20:35 Reading Location: [address] Ortho Consult Reading Room PROTHROMBIN TIME/[id number] 05:40:00 Test Item Value Reference Range Comments PROTIME (BEAKER) (test yeec=006) 14.7 seconds 11.7-14.7 INR (BEAKER) (test uufj=343) 1.2 <=5.9 RECOMMENDED COUMADIN/WARFARIN INR THERAPY RANGESSTANDARD DOSE: 2.0 - 3.0 Includes: PROPHYLAXIS forvenous thrombosis, systemic embolization; TREATMENT for venous thrombosis and/or pulmonary embolus.HIGH RISK: Target INR is 2.5-3.5 for patients with mechanical heart valves.[id number] 05:40:00 Test Item Value Reference Range Comments PARTIAL THROMBOPLASTIN TIME (BEAKER) (test 31.6 seconds 22.5-36.0 sigq=786) [id number] 05:21:00 Test Item Value Reference Range Comments MAGNESIUM (BEAKER) (test lhif=817) 1.6 mg/dL 1.6-2.6 BASIC METABOLIC [id number] 05:21:00 Test Item Value Reference Range Comments SODIUM (BEAKER) (test 132 meq/L 136-145 ecxm=196) POTASSIUM (BEAKER) (test 3.5 meq/L 3.5-5.1 shhc=157) CHLORIDE (BEAKER) (test 96 meq/L 98-107 gjcx=900) CO2 (BEAKER) (test 28 meq/L 22-29 kxqr=289) BLOOD UREA NITROGEN 22 mg/dL 7-21 (BEAKER) (test ehls=458) CREATININE (BEAKER) (test 1.06 mg/dL 0.57-1.25 qkjp=361) GLUCOSE RANDOM (BEAKER) 108 mg/dL 70-105 (test snpt=454) CALCIUM (BEAKER) (test 9.2 mg/dL 8.4-10.2 mfky=978) EGFR (BEAKER) (test 67 mL/min/1.73 sq m ESTIMATED GFR IS NOT seob=6134) ACCURATE CREATININE CLEARANCE IN PREDICTING GLOMERULAR FILTRATION RATE. ESTIMATED GFR IS NOT APPLICABLE FOR DIALYSIS PATIENTS. [id number] 05:20:00 Test Item Value Reference Range Comments MAGNESIUM (BEAKER) (test utqm=024) 1.5 mg/dL 1.6-2.6 BASIC METABOLIC [id number] 05:20:00 Test Item Value Reference Range Comments SODIUM (BEAKER) (test 135 meq/L 136-145 plsc=758) POTASSIUM (BEAKER) (test 3.6 meq/L 3.5-5.1 afpi=366) CHLORIDE (BEAKER) (test 98 meq/L 98-107 wgum=835) CO2 (BEAKER) (test 29 meq/L 22-29 cmnj=702) BLOOD UREA NITROGEN 22 mg/dL 7-21 (BEAKER) (test uzhc=418) CREATININE (BEAKER) (test 1.07 mg/dL 0.57-1.25 ulpc=905) GLUCOSE RANDOM (BEAKER) 108 mg/dL 70-105 (test zykk=562) CALCIUM (BEAKER) (test 9.3 mg/dL 8.4-10.2 tzks=746) EGFR (BEAKER) (test 67 mL/min/1.73 sq m ESTIMATED GFR IS NOT tiaj=9896) ACCURATE CREATININE CLEARANCE IN PREDICTING GLOMERULAR FILTRATION RATE. ESTIMATED GFR IS NOT APPLICABLE FOR DIALYSIS PATIENTS. CBC W/PLT COUNT & AUTO [id number] 05:02:00 Test Item Value Reference Range Comments WHITE BLOOD CELL COUNT (BEAKER) (test mqgn=377) 8.3 K/ L 3.5-10.5 RED BLOOD CELL COUNT (BEAKER) (test plxc=831) 3.67 M/ L 4.63-6.08 HEMOGLOBIN (BEAKER) (test tvxe=065) 11.5 GM/DL 13.7-17.5 HEMATOCRIT (BEAKER) (test gayd=039) 35.0 % 40.1-51.0 MEAN CORPUSCULAR VOLUME (BEAKER) (test wxip=336) 95.4 fL 79.0-92.2 MEAN CORPUSCULAR HEMOGLOBIN (BEAKER) (test 31.3 pg 25.7-32.2 uqcb=164) MEAN CORPUSCULAR HEMOGLOBIN CONC (BEAKER) (test 32.9 GM/DL 32.3-36.5 xqdf=905) RED CELL DISTRIBUTION WIDTH (BEAKER) (test 12.5 % 11.6-14.4 sptu=346) PLATELET COUNT (BEAKER) (test zjgi=885) 285 K/CU MM 150-450 MEAN PLATELET VOLUME (BEAKER) (test ncnt=463) 9.2 fL 9.4-12.4 NUCLEATED RED BLOOD CELLS (BEAKER) (test 0 /100 WBC 0-0 mnzj=301) NEUTROPHILS RELATIVE PERCENT (BEAKER) (test 71 % cvee=074) LYMPHOCYTES RELATIVE PERCENT (BEAKER) (test 10 % uhgb=876) MONOCYTES RELATIVE PERCENT (BEAKER) (test 12 % ttlf=590) EOSINOPHILS RELATIVE PERCENT (BEAKER) (test 7 % tqgr=476) BASOPHILS RELATIVE PERCENT (BEAKER) (test 1 % fcat=298) NEUTROPHILS ABSOLUTE COUNT (BEAKER) (test 5.88 K/ L 1.78-5.38 vzcs=222) LYMPHOCYTES ABSOLUTE COUNT (BEAKER) (test 0.79 K/ L 1.32-3.57 pdoq=187) MONOCYTES ABSOLUTE COUNT (BEAKER) (test 1.01 K/ L 0.30-0.82 rhnj=946) EOSINOPHILS ABSOLUTE COUNT (BEAKER) (test 0.55 K/ L 0.04-0.54 qwok=456) BASOPHILS ABSOLUTE COUNT (BEAKER) (test 0.06 K/ L 0.01-0.08 scjh=546) IMMATURE GRANULOCYTES-RELATIVE PERCENT (BEAKER) 1 % 0-1 (test huiq=1632) CBC (HEMOGRAM ONLY)2018-09-23 05:02:00 Test Item Value Reference Range Comments WHITE BLOOD CELL COUNT (BEAKER) (test rypz=975) 8.3 K/ L 3.5-10.5 RED BLOOD CELL COUNT (BEAKER) (test gkqx=767) 3.67 M/ L 4.63-6.08 HEMOGLOBIN (BEAKER) (test cvmb=501) 11.5 GM/DL 13.7-17.5 HEMATOCRIT (BEAKER) (test qsqm=243) 35.0 % 40.1-51.0 MEAN CORPUSCULAR VOLUME (BEAKER) (test ifnz=775) 95.4 fL 79.0-92.2 MEAN CORPUSCULAR HEMOGLOBIN (BEAKER) (test 31.3 pg 25.7-32.2 axjy=097) MEAN CORPUSCULAR HEMOGLOBIN CONC (BEAKER) (test 32.9 GM/DL 32.3-36.5 xtci=242) RED CELL DISTRIBUTION WIDTH (BEAKER) (test 12.5 % 11.6-14.4 wsxv=680) PLATELET COUNT (BEAKER) (test jfsy=781) 285 K/CU MM 150-450 MEAN PLATELET VOLUME (BEAKER) (test jhva=932) 9.2 fL 9.4-12.4 NUCLEATED RED BLOOD CELLS (BEAKER) (test 0 /100 WBC 0-0 ncgd=664) POCT-GLUCOSE [id number] 21:35:00 Test Item Value Reference Range Comments POC-GLUCOSE METER (BEAKER) 133 mg/dL 70-110 TESTED AT [address] (test qjos=0005) [place] [id number] POCT-GLUCOSE [id number] 17:37:00 Test Item Value Reference Range Comments POC-GLUCOSE METER (BEAKER) 147 mg/dL 70-110 TESTED AT [address] (test tkru=0028) [place] [id number] 17:19:00 Test Item Value Reference Range Comments MAGNESIUM (BEAKER) (test iwpj=152) 1.5 mg/dL 1.6-2.6 BASIC METABOLIC [id number] 17:19:00 Test Item Value Reference Range Comments SODIUM (BEAKER) (test 136 meq/L 136-145 jokh=783) POTASSIUM (BEAKER) (test 3.4 meq/L 3.5-5.1 oqth=674) CHLORIDE (BEAKER) (test 97 meq/L 98-107 lmar=409) CO2 (BEAKER) (test 31 meq/L 22-29 tjhl=302) BLOOD UREA NITROGEN 21 mg/dL 7-21 (BEAKER) (test vfta=459) CREATININE (BEAKER) (test 1.12 mg/dL 0.57-1.25 ngpc=124) GLUCOSE RANDOM (BEAKER) 114 mg/dL 70-105 (test uevg=986) CALCIUM (BEAKER) (test 9.6 mg/dL 8.4-10.2 zsib=244) EGFR (BEAKER) (test 63 mL/min/1.73 sq m ESTIMATED GFR IS NOT dudz=6940) ACCURATE CREATININE CLEARANCE IN PREDICTING GLOMERULAR FILTRATION RATE. ESTIMATED GFR IS NOT APPLICABLE FOR DIALYSIS PATIENTS. POCT-GLUCOSE [id number] 13:08:00 Test Item Value Reference Range Comments POC-GLUCOSE METER (BEAKER) 106 mg/dL 70-110 TESTED AT [place] [id number] [facility] (test fdqa=5741) [facility] [address] POCT-GLUCOSE [id number] 21:49:00 Test Item Value Reference Range Comments POC-GLUCOSE METER (BEAKER) 116 mg/dL 70-110 TESTED AT [address] (test sdlx=6196) [facility] [address] POCT-GLUCOSE [id number] 17:56:00 Test Item Value Reference Range Comments POC-GLUCOSE METER (BEAKER) 142 mg/dL 70-110 TESTED AT [address] (test fdwd=7760) [facility] [address] CT, CTA, [id number] 14:55:00Addendum BeginsREPORT STATUS:A Addendum:There is increased density visualized in the left pleural fluid collection. Clinical correlation is needed if an inflammatory or hemorrhagic process is suspected.I agree with the previously described non vascular findings. Signed: Shirlene Ackerman MDReport Verified Date/Time: 09/21/2018 14:55:20 Reading Location: [place] [id number] Angio Body Reading RoomAddendum EndsFINAL REPORT CT [...] artery have increased calcific atherosclerosis seen with fhql-nn-hoolxxdd lesion identified. The right common femoral arteryis [...] An addendum will be dictated by the Director Trade Radiologist regarding the nonvascular findings. Signed: Shawn Barnes MDReport Verified Date/Time: 09/21/2018 14:01:54 Reading Location: [place] [address], CTA [id number] 14:55:00Addendum BeginsREPORT STATUS :A Addendum:There is increased density visualized in the left pleural fluid collection. Clinical correlation is needed if an inflammatory or hemorrhagic process is suspected.I agree with the previously described non vascular findings. Signed: Shirlene Ackerman MDReport Verified Date/Time : 09/21/2018 14:55:20 Reading Location: [place] [address] Angio Body Reading RoomAddendum EndsFINAL REPORT CT [...] artery have increased calcific atherosclerosis seen with ilpt-ff-sgnurjlf lesion identified. The right common femoral arteryis [...] An addendum will be dictated by the Director Trade Radiologist regarding the nonvascular findings. Signed: Shawn Barnes MDReport Verified Date/Time: 09/21/2018 14:01:54 Reading Location: [place] [address] Cardiology MRI [facility] METABOLIC [id number] 07:01:00 Test Item Value Reference Range Comments SODIUM (BEAKER) (test 129 meq/L 136-145 oqqw=449) POTASSIUM (BEAKER) (test 3.3 meq/L 3.5-5.1 cfle=226) CHLORIDE (BEAKER) (test 96 meq/L 98-107 sovh=314) CO2 (BEAKER) (test 24 meq/L 22-29 cahe=475) BLOOD UREA NITROGEN 20 mg/dL 7-21 (BEAKER) (test gwvl=098) CREATININE (BEAKER) (test 1.07 mg/dL 0.57-1.25 crxv=512) GLUCOSE RANDOM (BEAKER) 104 mg/dL 70-105 (test yrmo=696) CALCIUM (BEAKER) (test 8.8 mg/dL 8.4-10.2 ycbe=209) EGFR (BEAKER) (test 67 mL/min/1.73 sq m ESTIMATED GFR IS NOT ebsa=8009) ACCURATE CREATININE CLEARANCE IN PREDICTING GLOMERULAR FILTRATION RATE. ESTIMATED GFR IS NOT APPLICABLE FOR DIALYSIS PATIENTS. POCT-GLUCOSE [id number] 22:18:00 Test Item Value Reference Range Comments POC-GLUCOSE METER (BEAKER) 176 mg/dL 70-110 TESTED AT [facility] [address] [facility] (test asvg=5366) [facility] [address] RAD, CHEST, 1 VIEW, NON [id number] 20:32:00Reason for exam:->SOBShould this be performed at [...] Verified Date/Time: 09/20/2018 20:32 :40 Reading Location: [facility] Radiology Reading Room POCT-GLUCOSE [id number] 17:05:00 Test Item Value Reference Range Comments POC-GLUCOSE METER (BEAKER) 164 mg/dL 70-110 TESTED AT [address] (test tsvk=2308) [place] [address] POCT-GLUCOSE [id number] 13:55:00 Test Item Value Reference Range Comments POC-GLUCOSE METER (BEAKER) 105 mg/dL 70-110 TESTED AT [address] (test gwzj=4519) [place] [id number] POCT-GLUCOSE [id number] 09:01:00 Test Item Value Reference Range Comments POC-GLUCOSE METER (BEAKER) 116 mg/dL 70-110 TESTED AT [address] (test vfcl=4110) [place] [id number] BASIC METABOLIC [id number] 05:36:00 Test Item Value Reference Range Comments SODIUM (BEAKER) (test 131 meq/L 136-145 xfkn=787) POTASSIUM (BEAKER) (test 3.8 meq/L 3.5-5.1 eige=123) CHLORIDE (BEAKER) (test 100 meq/L 98-107 ylle=138) CO2 (BEAKER) (test 23 meq/L 22-29 ssud=555) BLOOD UREA NITROGEN 12 mg/dL 7-21 (BEAKER) (test lzbm=105) CREATININE (BEAKER) (test 0.81 mg/dL 0.57-1.25 nath=513) GLUCOSE RANDOM (BEAKER) 102 mg/dL 70-105 (test pdqd=505) CALCIUM (BEAKER) (test 9.1 mg/dL 8.4-10.2 biry=139) EGFR (BEAKER) (test 92 mL/min/1.73 sq m ESTIMATED GFR IS NOT bitl=8904) ACCURATE CREATININE CLEARANCE IN PREDICTING GLOMERULAR FILTRATION RATE. ESTIMATED GFR IS NOT APPLICABLE FOR DIALYSIS PATIENTS. POCT-GLUCOSE [id number] 23:13:00 Test Item Value Reference Range Comments POC-GLUCOSE METER (BEAKER) 119 mg/dL 70-110 TESTED AT [address] (test tqiv=7970) [place] [address] POCT-GLUCOSE [id number] 18:21:00 Test Item Value Reference Range Comments POC-GLUCOSE METER (BEAKER) 155 mg/dL 70-110 TESTED AT [address] (test jhgg=7963) [place] [address] HEMOGLOBIN [id number] 12:52:00 Test Item Value Reference Range Comments HEMOGLOBIN A1C (BEAKER) (test qclz=310) 6.4 % 4.3-6.1 POCT-GLUCOSE [id number] 09:22:00 Test Item Value Reference Range Comments POC-GLUCOSE METER (BEAKER) 99 mg/dL 70-110 TESTED AT [address] (test tdvl=7574) [place] [address] BASIC METABOLIC [id number] 06:48:00 Test Item Value Reference Range Comments SODIUM (BEAKER) (test 128 meq/L 136-145 skwd=155) POTASSIUM (BEAKER) (test 4.2 meq/L 3.5-5.1 mvdw=017) CHLORIDE (BEAKER) (test 99 meq/L 98-107 dgbi=890) CO2 (BEAKER) (test 24 meq/L 22-29 wlqx=242) BLOOD UREA NITROGEN 15 mg/dL 7-21 (BEAKER) (test lomo=796) CREATININE (BEAKER) (test 0.81 mg/dL 0.57-1.25 lyrd=269) GLUCOSE RANDOM (BEAKER) 96 mg/dL 70-105 (test crlw=727) CALCIUM (BEAKER) (test 8.8 mg/dL 8.4-10.2 didz=042) EGFR (BEAKER) (test 92 mL/min/1.73 sq m ESTIMATED GFR IS NOT dlfg=9963) ACCURATE CREATININE CLEARANCE IN PREDICTING GLOMERULAR FILTRATION RATE. ESTIMATED GFR IS NOT APPLICABLE FOR DIALYSIS PATIENTS. TROPONIN [id number] 06:46:00 Test Item Value Reference Range Comments TROPONIN I (BEAKER) (test dpmg=582) 0.01 ng/mL 0.00-0.03 Troponin I (TnI) levels [...] and persistent tachyarrhythmia.CBC W/PLT COUNT & AUTO [id number] 06:29:00 Test Item Value Reference Range Comments WHITE BLOOD CELL COUNT (BEAKER) (test lkmm=673) 8.2 K/ L 3.5-10.5 RED BLOOD CELL COUNT (BEAKER) (test wzql=172) 3.40 M/ L 4.63-6.08 HEMOGLOBIN (BEAKER) (test mbsq=722) 10.8 GM/DL 13.7-17.5 HEMATOCRIT (BEAKER) (test gcca=713) 32.1 % 40.1-51.0 MEAN CORPUSCULAR VOLUME (BEAKER) (test sxxr=439) 94.4 fL 79.0-92.2 MEAN CORPUSCULAR HEMOGLOBIN (BEAKER) (test 31.8 pg 25.7-32.2 pdrr=610) MEAN CORPUSCULAR HEMOGLOBIN CONC (BEAKER) (test 33.6 GM/DL 32.3-36.5 knct=874) RED CELL DISTRIBUTION WIDTH (BEAKER) (test 12.5 % 11.6-14.4 wito=120) PLATELET COUNT (BEAKER) (test afba=461) 257 K/CU MM 150-450 MEAN PLATELET VOLUME (BEAKER) (test tsrt=493) 9.6 fL 9.4-12.4 NUCLEATED RED BLOOD CELLS (BEAKER) (test 0 /100 WBC 0-0 owmn=232) NEUTROPHILS RELATIVE PERCENT (BEAKER) (test 75 % ljpt=568) LYMPHOCYTES RELATIVE PERCENT (BEAKER) (test 10 % zigp=885) MONOCYTES RELATIVE PERCENT (BEAKER) (test 11 % tdmk=033) EOSINOPHILS RELATIVE PERCENT (BEAKER) (test 3 % nchq=858) BASOPHILS RELATIVE PERCENT (BEAKER) (test 0 % hfen=762) NEUTROPHILS ABSOLUTE COUNT (BEAKER) (test 6.13 K/ L 1.78-5.38 fslu=724) LYMPHOCYTES ABSOLUTE COUNT (BEAKER) (test 0.81 K/ L 1.32-3.57 xfhm=674) MONOCYTES ABSOLUTE COUNT (BEAKER) (test 0.88 K/ L 0.30-0.82 tnvr=547) EOSINOPHILS ABSOLUTE COUNT (BEAKER) (test 0.27 K/ L 0.04-0.54 ormw=259) BASOPHILS ABSOLUTE COUNT (BEAKER) (test 0.03 K/ L 0.01-0.08 bpbf=310) IMMATURE GRANULOCYTES-RELATIVE PERCENT (BEAKER) 1 % 0-1 (test drkl=3093) TROPONIN [id number] 01:37:00 Test Item Value Reference Range Comments TROPONIN I (BEAKER) (test ixbj=524) < ng/mL 0.00-0.03 Troponin I (TnI) levels [...] NATRIURETIC PEPTIDE (BEAKER) (test 1260 pg/mL 0-100 utob=323) COMPREHENSIVE METABOLIC [id number] 18:56:00 Test Item Value Reference Range Comments TOTAL PROTEIN (BEAKER) 6.6 gm/dL 6.0-8.3 (test yzpy=011) ALBUMIN (BEAKER) (test 3.8 g/dL 3.5-5.0 gfnn=4453) ALKALINE PHOSPHATASE 90 U/L 40-150 (BEAKER) (test rnmi=789) BILIRUBIN TOTAL (BEAKER) 0.8 mg/dL 0.2-1.2 (test qzil=663) SODIUM (BEAKER) (test 130 meq/L 136-145 ucqx=091) POTASSIUM (BEAKER) (test 3.8 meq/L 3.5-5.1 copm=564) CHLORIDE (BEAKER) (test 96 meq/L 98-107 aupq=265) CO2 (BEAKER) (test 26 meq/L 22-29 bheo=722) BLOOD UREA NITROGEN 20 mg/dL 7-21 (BEAKER) (test zhzv=353) CREATININE (BEAKER) (test 0.98 mg/dL 0.57-1.25 wyco=884) GLUCOSE RANDOM (BEAKER) 103 mg/dL 70-105 (test jdkm=699) CALCIUM (BEAKER) (test 9.3 mg/dL 8.4-10.2 kask=068) AST (SGOT) (BEAKER) (test 26 U/L 5-34 tujv=430) ALT (SGPT) (BEAKER) (test 32 U/L 6-55 qfiy=603) EGFR (BEAKER) (test 74 mL/min/1.73 sq m ESTIMATED GFR IS NOT hcsk=2505) ACCURATE CREATININE CLEARANCE IN PREDICTING GLOMERULAR FILTRATION RATE. ESTIMATED GFR IS NOT APPLICABLE FOR DIALYSIS PATIENTS. CBC W/PLT COUNT & AUTO [id number] 18:35:00 Test Item Value Reference Range Comments WHITE BLOOD CELL COUNT (BEAKER) (test ncdo=344) 10.5 K/ L 3.5-10.5 RED BLOOD CELL COUNT (BEAKER) (test xocx=606) 3.51 M/ L 4.63-6.08 HEMOGLOBIN (BEAKER) (test eklr=676) 11.1 GM/DL 13.7-17.5 HEMATOCRIT (BEAKER) (test coxh=425) 33.5 % 40.1-51.0 MEAN CORPUSCULAR VOLUME (BEAKER) (test bbuw=406) 95.4 fL 79.0-92.2 MEAN CORPUSCULAR HEMOGLOBIN (BEAKER) (test 31.6 pg 25.7-32.2 ckea=153) MEAN CORPUSCULAR HEMOGLOBIN CONC (BEAKER) (test 33.1 GM/DL 32.3-36.5 uxhu=485) RED CELL DISTRIBUTION WIDTH (BEAKER) (test 12.4 % 11.6-14.4 wwah=089) PLATELET COUNT (BEAKER) (test otwg=477) 268 K/CU MM 150-450 MEAN PLATELET VOLUME (BEAKER) (test clxp=492) 9.3 fL 9.4-12.4 NUCLEATED RED BLOOD CELLS (BEAKER) (test 0 /100 WBC 0-0 wsyo=073) NEUTROPHILS RELATIVE PERCENT (BEAKER) (test 75 % xrbe=884) LYMPHOCYTES RELATIVE PERCENT (BEAKER) (test 9 % mqyr=567) MONOCYTES RELATIVE PERCENT (BEAKER) (test 12 % zdzw=923) EOSINOPHILS RELATIVE PERCENT (BEAKER) (test 3 % mbdy=506) BASOPHILS RELATIVE PERCENT (BEAKER) (test 0 % ljte=265) NEUTROPHILS ABSOLUTE COUNT (BEAKER) (test 7.89 K/ L 1.78-5.38 diqr=230) LYMPHOCYTES ABSOLUTE COUNT (BEAKER) (test 0.97 K/ L 1.32-3.57 wolt=105) MONOCYTES ABSOLUTE COUNT (BEAKER) (test 1.21 K/ L 0.30-0.82 eski=237) EOSINOPHILS ABSOLUTE COUNT (BEAKER) (test 0.32 K/ L 0.04-0.54 eehm=247) BASOPHILS ABSOLUTE COUNT (BEAKER) (test 0.04 K/ L 0.01-0.08 fxut=495) IMMATURE GRANULOCYTES-RELATIVE PERCENT (BEAKER) 1 % 0-1 (test nhuy=8670) POCT-GLUCOSE [id number] 17:14:00 Test Item Value Reference Range Comments POC-GLUCOSE METER (BEAKER) 172 mg/dL 70-110 TESTED AT [facility] [address] (test yhes=9099) [facility] [id number]
[2019-11-09] MEDS ORDERED: FUROSEMIDE 40 MG/4 ML VIAL ONE (09:23)
[2019-11-09 09:56] LABS: Basophils % 0.5 % (0-1.3); Hematocrit 33.7 % (39.6-49.0); MPV 8.1 fL (7.6-11.3); RBC Red Blood Cell Count 3.74 M/uL (4.33-5.43)
[2019-11-09 10:10] LABS: BUN Blood Urea Nitrogen 29 mg/dL (7-18); Bicarbonate 26 mmol/L (21-32); Glucose Level 88 mg/dL (74-106); NT PRO-BNP 1396 pg/mL (<450); Potassium 3.8 mmol/L (3.5-5.1); Sodium Level 136 mmol/L (136-145); Troponin (Emerg Dept Use Only) < 0.02 ng/mL (0.0-0.045)
--- NOTE | 2019-11-09 11:05 | RAD REPORT ---
EXAM DESCRIPTION: Gudelia Single View11/09/2019 10:30 am CLINICAL HISTORY: Shortness of breath COMPARISON: October 22 2019 FINDINGS: Haziness to the left base unchanged which may represent a combination of pleural thickenin g and atelectasis Lungs otherwise appear clear of acute infiltrate. Heart is mildly to moderately enlarged. Postsurgical changes involve the chest.
[2019-11-09] MEDS ORDERED: FUROSEMIDE 20 MG/ 2ML VIAL ONE (11:26)
--- NOTE | 2019-11-09 12:37 | ER ---
Nurse's Notes [facility] Name: Jeb Lubin Sr Age: 79 yrs Sex: Male : 1940 Arrival Date: 11/09/2019 Time: 09:03 Bed 6 Private MD: Diagnosis: Pulmonary edema;Unspecified combined systolic (congestive) and diastolic (congestive) heart failure Presentation: 11/09 09:03 Presenting complaint: EMS states: pt reports shortness of breath while doing cardiac sg rehab at the rehab center in [facility], pt states that he has not been able to take his home medications at night time due to forgetting to take them. Home health nurse reports to EMS the patient has gained 2-3 lbs over the last 2-3 days. Transition of care: patient was received from another setting of care (rehabilitation facility). Onset of symptoms was November 09, 2019. Risk Assessment: Do you want to hurt yourself or someone else? Patient reports no desire to harm self or others. Initial Sepsis Screen: Does the patient meet any 2 criteria? RR > 20 per min. No. Patient's initial sepsis screen is negative. Does the patient have a suspected source of infection? No. Patient's initial sepsis screen is negative. Care prior to arrival: None. 09:03 Method Of Arrival: EMS: [facility] sg 09:03 Acuity: CECILIA 3 sg Historical: - Allergies: 09:07 PENICILLINS; sg 09:07 Xarelto; sg - Home Meds: 09:14 amlodipine 10 mg tab 1 tab once daily [Active]; atorvastatin 40 mg Oral tab nightly sg [Active]; clopidogrel 75 mg Oral tab 1 tab once daily [Active]; furosemide 40 mg Oral tab 1 tab once daily [Active]; losartan 100 mg Oral tab 1 tab once daily [Active]; pantoprazole 40 mg Oral TbEC 1 tab once daily [Active]; memantine 10 mg Oral tab 1 tab 2 times per day [Active]; sotalol 10 mg oral tab .5 tab 2 times per day [Active]; - PMHx: 09:07 Atrial Fib; Diabetes - NIDDM; Hypertension; sg - 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 - Coronavirus screen:: The patient has NOT traveled to [place], [place], or [place] in the past 14 days. Proceed with normal triage process as indicated. The patient has NOT had contact with known/suspected case of Coronavirus? Proceed with normal triage procedures. - Social history:: Smoking status: Patient denies any tobacco usage or history of. - Family history:: not pertinent. - Ebola Screening: : Patient negative for fever greater than or equal to 101.5 degrees Fahrenheit, and additional compatible Ebola Virus Disease symptoms Patient denies exposure to infectious person Patient denies travel to an Ebola-affected area in the 21 days before illness onset No symptoms or risks identified at this time. - Hospitalizations: : No recent hospitalization is reported. Screenin:30 Abuse screen: Denies threats or abuse. Denies injuries from another. Nutritional sg screening: No deficits noted. Tuberculosis screening: No symptoms or risk factors identified. Never had TB. Fall Risk None identified. Assessment: 09:30 General: Appears in no apparent distress. well groomed, well developed, well nourished, sg Behavior is calm, cooperative, appropriate for age. Pain: Denies pain. Neuro: Level of Consciousness is awake, alert, obeys commands, Oriented to person, place, time, Home Housekeeper are equal bilaterally Moves all extremities. Gait is steady, Speech is normal, Facial symmetry appears normal. Cardiovascular: Capillary refill is brisk in bilateral fingers Patient's skin is warm and dry. Chest pain is denied. Respiratory: Airway is patent Respiratory effort is even, unlabored, Respiratory pattern is regular, symmetrical, Breath sounds with crackles in left posterior lower lobe and right posterior lower lobe. GI: No signs and/or symptoms were reported involving the gastrointestinal system. : No signs and/or symptoms were reported regarding the genitourinary system. EENT: No signs and/or symptoms were reported regarding the EENT system. Derm: Skin is pink, warm \T\ dry. Musculoskeletal: Circulation, motion, and sensation intact. Range of motion: intact in all extremities, Swelling present in RLE. 10:40 General: Appears in no apparent distress. comfortable, Behavior is calm, cooperative, aj1 appropriate for age. Pain: Denies pain. Neuro: Level of Consciousness is awake, alert, obeys commands, Oriented to person, place, time, situation, Speech is normal, Facial symmetry appears normal. Cardiovascular: Capillary refill < 3 seconds Patient's skin is warm and dry. Rhythm is sinus bradycardia Chest pain is denied. Respiratory: Reports shortness of breath Airway is patent Respiratory effort is even, unlabored, Respiratory pattern is regular, symmetrical, Breath sounds with crackles. GI: No signs and/or symptoms were reported involving the gastrointestinal system. : No signs and/or symptoms were reported regarding the genitourinary system. EENT: No signs and/or symptoms were reported regarding the EENT system. Derm: No signs and/or symptoms reported regarding the dermatologic system. Skin is pink, warm \T\ dry. normal. Musculoskeletal: No signs and/or symptoms reported regarding the musculoskeletal system. Circulation, motion, and sensation intact. 11:33 Reassessment: Patient appears in no apparent distress at this time. No changes from aj1 previously documented assessment. Patient and/or family updated on plan of care and expected duration. Pain level reassessed. Patient is alert, oriented x 3, equal unlabored respirations, skin warm/dry/pink. 12:30 Reassessment: Patient and/or family updated on plan of care and expected duration. Pain aj1 level reassessed. General: Appears in no apparent distress. comfortable, Behavior is calm, cooperative, appropriate for age. Neuro: Level of Consciousness is awake, alert, obeys commands, Oriented to person, place, time, situation. Cardiovascular: Patient's skin is warm and dry. Rhythm is sinus bradycardia. Respiratory: Airway is patent Respiratory effort is even, unlabored, Respiratory pattern is regular, symmetrical. GI: No signs and/or symptoms were reported involving the gastrointestinal system. Derm: No signs and/or symptoms reported regarding the dermatologic system. Skin is pink, warm \T\ dry. normal. Musculoskeletal: No signs and/or symptoms reported regarding the musculoskeletal system. Circulation, motion, and sensation intact. 13:00 Reassessment: Patient appears in no apparent distress at this time. No changes from aj1 previously documented assessment. Patient and/or family updated on plan of care and expected duration. Pain level reassessed. Patient is alert, oriented x 3, equal unlabored respirations, skin warm/dry/pink. Vital Signs: 09:06 BP 159 / 62; Pulse 55; Resp 21 S; Temp 97.7; Pulse Ox 100% on R/A; Pain 0/10; sg 10:40 BP 120 / 83; Pulse 55; Resp 18; Pulse Ox 100% on R/A; aj1 11:33 BP 155 / 50; Pulse 48; Resp 18; Pulse Ox 98% on R/A; aj1 12:30 BP 169 / 57; Pulse 53; Resp 18; Pulse Ox 99% on R/A; aj1 ED Course: 09:03 Patient arrived in ED. sg 09:03 Andriy Rios MD is Attending Physician. rn 09:06 Triage completed. sg 09:06 Arm band placed on. sg 09:08 Ricky Olvera RN is Primary Nurse. sg 09:30 Initial lab(s) drawn, by wa, sent to lab. First set of blood cultures drawn by me. sg Inserted saline lock: 22 gauge in right antecubital area, using aseptic technique. Blood collected. 09:41 Second set of blood cultures drawn by wa. sg 10:28 XRAY CXR (1 view) In Process Unspecified. EDMS 13:15 Patient has correct armband on for positive identification. Bed in low position. Call ss light in reach. 13:16 No provider procedures requiring assistance completed. IV discontinued, intact, ss bleeding controlled, No redness/swelling at site. Pressure dressing applied. Administered Medications: 09:42 Drug: Lasix 40 mg Route: IVP; Site: right antecubital; sg 13:07 Follow up: Response: No adverse reaction aj1 11:27 Drug: Lasix 20 mg Route: IVP; Site: right antecubital; aj1 13:07 Follow up: Response: No adverse reaction aj1 Output: 10:32 Urine: 500ml (Voided); Total: 500ml. ss 13:15 Urine: 500ml (Voided); Total: 1000ml. Outcome: 12:36 Discharge ordered by . rn 13:16 Discharged to home ambulatory. ss 13:16 Condition: good 13:16 Discharge instructions given to patient, Instructed on discharge instructions, follow up and referral plans. medication usage, Demonstrated understanding of instructions, follow-up care. 13:17 Patient left the ED. ss Signatures: Dispatcher [employer] EDMS Marleni Correa RN RN aj1 Ricky Olvera, RN RN Andriy Rios MD MD rn Smirch, Shelby, RN RN ss
--- NOTE | 2019-11-09 12:37 | EDPHYS ---
Physician Documentation [facility] Name: Jeb Lubin Sr Age: 79 yrs Sex: Male : 1940 Arrival Date: 11/09/2019 Time: 09:03 Bed 6 Private MD: ED Physician Andriy Rios HPI: 11/09 09:15 This 79 yrs old Male presents to ER via EMS with complaints of Shortness Of rn Breath. 09:15 The patient has shortness of breath with light activity. Onset: The symptoms/episode rn began/occurred last night. Duration: The symptoms are intermittent. The patient's shortness of breath is aggravated by exertion, light activity. Severity of symptoms: At their worst the symptoms were mild in the emergency department the symptoms are unchanged. The patient has experienced similar episodes in the past. The patient has not recently seen a physician. 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 - Coronavirus screen:: The patient has NOT traveled to [place], [place], or [place] in the past 14 days. Proceed with normal triage process as indicated. The patient has NOT had contact with known/suspected case of Coronavirus? Proceed with normal triage procedures. - Social history:: Smoking status: Patient denies any tobacco usage or history of. - Family history:: not pertinent. - Ebola Screening: : Patient negative for fever greater than or equal to 101.5 degrees Fahrenheit, and additional compatible Ebola Virus Disease symptoms Patient denies exposure to infectious person Patient denies travel to an Ebola-affected area in the 21 days before illness onset No symptoms or risks identified at this time. - Hospitalizations: : No recent hospitalization is reported. ROS: 09:15 Constitutional: Negative for fever, chills, and weight loss, Eyes: Negative for injury, rn pain, redness, and discharge, Cardiovascular: Negative for chest pain, palpitations Respiratory: Negative for wheezing, and pleuritic chest pain, Abdomen/GI: Negative for abdominal pain, nausea, vomiting, diarrhea, and constipation, MS/Extremity: Negative for injury and deformity, Skin: Negative for injury, rash, and discoloration, Neuro: Negative for headache, weakness, numbness, tingling, and seizure. Exam: 09:15 Constitutional: This is a well developed, well nourished patient who is awake, alert, rn mild tachypnea Head/Face: Normocephalic, atraumatic. Cardiovascular: Regular rate and rhythm. Respiratory: Mild crackles at bases, mild tachypnea Abdomen/GI: soft, non-tender MS/ Extremity: Pulses equal, no cyanosis. Neurovascular intact. + 1+ pitting edema bilateral lower ext L>R (says abseline since CABG). Neuro: Awake and alert, GCS 15, oriented to person, place, time, and situation. Cranial nerves II-XII grossly intact. Motor strength 5/5 in all extremities. Sensory grossly intact. Cerebellar exam normal. Normal gait. Vital Signs: 09:06 BP 159 / 62; Pulse 55; Resp 21 S; Temp 97.7; Pulse Ox 100% on R/A; Pain 0/10; sg 10:40 BP 120 / 83; Pulse 55; Resp 18; Pulse Ox 100% on R/A; aj1 11:33 BP 155 / 50; Pulse 48; Resp 18; Pulse Ox 98% on R/A; aj1 12:30 BP 169 / 57; Pulse 53; Resp 18; Pulse Ox 99% on R/A; aj1 MDM: 09:03 Patient medically screened. rn 12:34 Differential diagnosis: CHF exacerbation, Pneumothorax pulmonary edema. Data reviewed: rn vital signs, nurses notes, lab test result(s), radiologic studies, plain films, and as a result, I will discharge patient. Counseling: I had a detailed discussion with the patient and/or guardian regarding: the historical points, exam findings, and any diagnostic results supporting the discharge/admit diagnosis, lab results, radiology results, the need for outpatient follow up, to return to the emergency department if symptoms worsen or persist or if there are any questions or concerns that arise at home. Special discussion: I discussed with the patient/guardian in detail that at this point there is no indication for admission to the hospital. It is understood, however, that if the symptoms persist or worsen the patient needs to return immediately for re-evaluation. ED course: Pt ambulatory, feels much better, no oxygen requirement, has urinated 2 atleast 2 full urinals. . 11/09 09:13 Order name: Blood Culture Adult (2) rn 11/09 09:13 Order name: BMP; Complete Time: 10: rn 11/09 09:13 Order name: XRAY CXR (1 view); Complete Time: 11:15 rn 11/09 09:13 Order name: CBC with Diff; Complete Time: 10: rn 11/09 09:13 Order name: NT PRO-BNP; Complete Time: 10: rn 11/09 09:13 Order name: Troponin (emerg Dept Use Only); Complete Time: 10:21 rn 11/09 09:13 Order name: EKG; Complete Time: 09:14 rn 11/09 09:13 Order name: Cardiac monitoring; Complete Time: 09: rn 11/09 09:13 Order name: EKG - Nurse/Tech; Complete Time: 09:46 rn 11/09 09:13 Order name: IV Saline Lock; Complete Time: 09:14 rn 11/09 09:13 Order name: Labs collected and sent; Complete Time: 09:14 rn 11/09 09:13 Order name: O2 Per Protocol; Complete Time: 09: rn 11/09 09:13 Order name: O2 Sat Monitoring; Complete Time: 09:14 rn Administered Medications: 09:42 Drug: Lasix 40 mg Route: IVP; Site: right antecubital; sg 13:07 Follow up: Response: No adverse reaction aj1 11:27 Drug: Lasix 20 mg Route: IVP; Site: right antecubital; aj1 13:07 Follow up: Response: No adverse reaction aj1 Disposition: 11/09/19 12:36 Discharged to Home. Impression: Pulmonary edema, Unspecified combined systolic (congestive) and diastolic (congestive) heart failure. - Condition is Stable. - Discharge Instructions: Heart Failure, Pulmonary Edema. - Medication Reconciliation Form, Thank You Letter, Antibiotic Education, Prescription Opioid Use form. - Follow up: Private Physician; When: As needed; Reason: Recheck today's complaints, Re-evaluation by your physician. - Problem is an acute exacerbation. - Symptoms have improved. Signatures: Dispatcher [employer] EDNC Marleni Correa RN RN aj1 Ricky Olvera RN RN sg Nieto, Roman, MD MD rn Smirch, Shelby, RN RN ss Corrections: (The following items were deleted from the chart) 09:21 09:15 Constitutional: This is a well developed, well nourished patient who is awake, rn alert, mild tachypnea Head/Face: Normocephalic, atraumatic. Cardiovascular: Regular rate and rhythm with a normal S1 and S2. No gallops, murmurs, or rubs. Normal PMI, no JVD. No pulse deficits. rn 13:17 12:36 11/09/2019 12:36 Discharged to Home. Impression: Pulmonary edema; Unspecified ss combined systolic (congestive) and diastolic (congestive) heart failure. Condition is Stable. Forms are Medication Reconciliation Form, Thank You Letter, Antibiotic Education, Prescription Opioid Use. Follow up: Private Physician; When: As needed; Reason: Recheck today's complaints, Re-evaluation by your physician. Problem is an acute exacerbation. Symptoms have improved. rn
[2019-11-09 13:26] VITALS: TEMP 97.7
[2019-11-09 13:30] VITALS: BP 169/57; O2SAT 99
--- NOTE | 2019-11-11 07:52 | EKG ---
Test Date: 2019-11-09 Test Time: 09:24:49 Gaming Associate: HEIDI MEASUREMENT RESULTS: Intervals: Rate: 50 [place]: 154 QRSD: 84 QT: 536 QTc: 488 [place]: P: [place]: 154 QRS: 70 T: 72 INTERPRETIVE STATEMENTS: Sinus bradycardia with premature atrial complexes Prolonged QT Abnormal ECG Compared to ECG 10/22/2019 10:11:27 Atrial premature complex(es) now present Prolonged QT interval now present Electronically Signed On 11-11-19 07:50:12 SECURITY ALARM INSTALLER by Kelechi Tam
== END 2019-11-09 13:17 | disposition home or self-care (01) ==
LOC: ER 09:00
DX: I50.40 Unspecified combined systolic (congestive) and diastolic (congestive) heart failure (principal); J81.1 Chronic pulmonary edema; I10 Essential (primary) hypertension; E11.9 Type 2 diabetes mellitus without complications; Z88.0 Allergy status to penicillin; Z95.1 Presence of aortocoronary bypass graft
CPT/HCPCS: 93005; 87040 ×2; 85025; 80048; 36415; 84484; 83880; 71045; 96374; 99284; J1940 ×2

== ENCOUNTER 2020-10-14 18:26 | Observation (INO) | payer OTHER ==
--- OUTSIDE RECORDS SUMMARY | 2020-10-14 18:28 | XMS REPORT | Clinical Summary ---
:1940 Author Organization [facility] Address [address] [place] [address] Care Team Providers Name Role Phone Jamal Waller Unavailable Pcp, Primary Care Provider Unavailable Allergies Active Allergy Reactions Severity Noted Date Comments Penicillins Rash Low 06/24/2015 Medications Medication Sig Dispensed Refills Start Date End Date Status timolol (TIMOPTIC) Place into both 0 01/26/2018 Active 0.5 % ophthalmic eyes 2 (two) times solution daily . ascorbic acid, Take 1,000 mg by 0 Active vitamin C, (ASCORBIC mouth daily . ACID WITH LOBITO HIPS) 500 MG tablet MULTIVIT-MINERALS/KAREN Take by mouth 0 Active EMILIA FUM (MULTI daily. VITAMIN ORAL) omega-3 acid ethyl Take 2 g by mouth 0 Active esters (LOVAZA) 1 2 (two) times gram capsule daily. cholecalciferol, Take 5,000 Units 0 Active vitamin D3, 5,000 by mouth 2 (two) unit Tab times daily with breakfast and dinner. memantine (NAMENDA) 5 Take 5 mg by mouth 0 Active MG tablet daily. dorzolamide-timolol Place 1 drop into 0 Active (COSOPT) 22.3-6.8 both eyes 2 (two) mg/mL ophthalmic times daily. solution atorvastatin Take 1 tablet (40 30 tablet 0 09/28/2018 Active (LIPITOR) 40 MG mg total) by mouth tablet nightly. clopidogrel (PLAVIX) Take 1 tablet (75 30 tablet 0 09/29/2018 Active 75 mg tablet mg total) by mouth daily. docusate sodium Take 1 capsule 60 capsule 0 09/28/2018 Active (COLACE) 100 MG (100 mg total) by capsule mouth 2 (two) times daily as needed for Constipation. Active Problems Problem Noted Date S/P TAVR (transcatheter aortic valve replacement) 09/10 Anemia 09/22/2018 Hyponatremia 09/22/2018 Chest pain 09/20/2018 Lower GI bleed 09/18/2018 S/P CABG (coronary artery bypass graft) 07/14/2015 Fluid overload 07/14/2015 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 07/14/2015 CAD (coronary artery disease) 06/24/2015 Coronary artery disease involving coronary bypass [place] heart 06/24/2015 without angina pectoris Peripheral vascular disease Hyperlipidemia Hypertension Aortic stenosis Atrial fibrillation Thyroid disease Carotid artery occlusion Ischemic cardiomyopathy Family History Medical History Relation Name Comments Heart disease Brother Hypertension Brother Heart disease Father Hypertension Father Heart disease Mother Hypertension Mother Relation Name Status Comments Brother Father Mother Social History Tobacco Use Types Packs/Day Years Used Date Former Smoker Cigarettes 1 14 Quit: 1963 Smokeless Tobacco: Never Used Alcohol Use Drinks/Week oz/Week Comments Yes 1 Glasses of wine 7.0 ocassionaly 6 Cans of beer Sex Assigned at Date Recorded Not on file Last Filed Vital Signs Not on file Plan of Treatment Health Maintenance Due Date Last Done Comments PNEUMOCOCCAL 65+ YRS (1 of 1 - [id number]) 2004 MEDICARE ANNUAL WELLNESS (YEAR 2 or FIRST YEAR if no 06/11/2005 IPPE) DEPRESSION SCREENING (12+) 10/10/2019 INFLUENZA VACCINE (#1) 2020 Implants Implanted Type Area Immigration Services Officer Device Shelf Model / Identifier Expiration Serial / Date Lot Patch Periph Vascu-Grd 0.8x8cm [id number] - [id number] Tissue N/A: [employer] 05/03/2023 [id number] / Implanted: Qty: 1 on 09/25/2018 by Jhonathan Kwong MD at [facility] Graft/Subs Aorta TECH:SURG INNOV / titute [id number] Description:Peripheral vascular patch Valve Heart Malcolm 3 23mm [id number] - [id number] Valves N /A: Aorta VARGAS [employer] 05/07/2020 [id number] / Implanted: Qty: 1 on 09/25/2018 by Jhonathan Kwong MD at [facility] [id number] / Description:Aortic Valve stent Results Not on fileafter 10/14/2019 Advance Directives For more information, please contact: [phone] Code Status Date Activated Date Inactivated Comments [...]
--- OUTSIDE RECORDS SUMMARY | 2020-10-14 18:29 | XMS REPORT | Continuity of Care Document ---
:1940 Author Organization [facility] t Address [address] [place] [address] Care Team Providers Name Role Phone Pcp MD Primary Care Physician Unavailable CIVUNIGUNTA Attending Clinician Unavailable CIVUNIGUNTA Admitting Clinician Unavailable Problems Condition Condition Condition Status Onset Resolution Last Treating Co mments Source Name Details Category Date Date Treatment Clinician Date S/P TAVR S/P TAVR Disease [facility]22 [facility] - eter eter 00:00: Medical aortic aortic 00 Center valve valve replacemen replacemen t) t) Anemia Anemia Disease Active 2017-[address] [facility] [address] [facility] Hyponatrem Hyponatrem Disease Active 2017-[address] ia ia 2-[facility] [place] Chest pain Chest pain Disease Active 2017-[address] [facility] [place] Lower GI Lower GI Disease Active 2017-10 [facility] bleed [facility] S/P CABG S/P CABG Disease Active 2014-10 [facility]cor[facility] (coronary 0-05 [facility] - artery artery 00:00: Medical bypass bypass 00 Center graft) graft) Fluid Fluid Disease Active 2014-[address] overload overload 0-05 [facility] 00 Center Acute on Acute on Disease Active 2014-10 [facility] chronic chronic [facility] - diastolic diastolic 00:00: Medi dennise ACC/AHA ACC/AHA 00 [place] 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 CAD CAD Disease Active [facility] (coronary (coronary 9-15 [facility] - artery artery 00:00: Medical disease) disease) Center Coronary Coronary Disease Active [facility] artery artery 06-24 [facility] - disease disease 00:00: Medical involving involving 00 Cent er coronary coronary bypass bypass graft of graft of tribal tribal heart heart without without angina angina pectoris pectoris Peripheral Peripheral Disease Active [facility] vascular vascular [facility] disease disease [facility] Hyperlipid Hyperlipid Disease Active [facility] em[facility] Hypertensi Hypertensi Disease Active [facility] on on [facility] Aortic Aortic Disease Active [facility] stenosis stenosis [facility] Atrial Atrial Disease Active [facility] fibrillati fibrillati [facility] - on [facility] Thyroid Thyroid Disease Active [facility] disease disease [facility] Carotid Carotid Disease Active [facility] artery artery [facility] - occlusion occlusion [facility] Ischemic Ischemic Disease Active [facility] cardiomyop cardiomyop [facility] Allergies, Adverse Reactions, Alerts Allergy Allergy Status Severity Reaction(s) Onset Inactive Treating Comm ents Source Name Type Date Date Clinician Penicill Propensi Active Rash [facility]24 [facility] - adverse 00:00: Medical reaction 00 Center s Family History Family Member Diagnosis Comments Start Date Stop Date Source Natural brother Heart disease [facility] Natural brother Hypertension [facility] Natural father Heart disease [facility] Natural father Hypertension [facility] Natural mother Heart disease [facility] Natural mother Hypertension [facility] Social History Social Habit Start Date Stop Date Quantity Comments Source History of tobacco Current smoker [facility] Alcohol Comment ocassionaly [facility] Sex Assigned At [facility] Cigarettes smoked 2018-09-30 2018-09-30 [facility] - current (pack per 00:00:00 00:00:00 Medical Center day) - Reported Cigarette 2018-09-30 2018-09-30 [facility] - pack-years 00:00:00 00:00:00 [facility] Tobacco use and 2018-09-30 2018-09-30 Never used [facility] - exposure 00:00:00 00:00:00 [facility] Alcohol intake 2018-09-30 2018-09-30 [facility]00 [facility]finding) [facility] Smoking Status Start Date Stop Date Source Former smoker 2018-09-30 00:00:00 2018-09-30 00:00:[address] [facility] Medications Ordered Filled Start Stop Current Ordering Indication Dosage Frequency Signature Comments Components Source Medication Medication Date Date Medication? Clinician (SIG) Name Name clopidogrel 2017-10 Yes 75mg QD Take [address] [facility] (PLAVIX) 75 2-21 tablet (75 [facility] - mg tablet 00:00: mg total) Med ical 00 by mouth Center daily. ascorbic 2017-10 Yes 1000mg QD Take 1,[address] acid, 2-20 mg by [facility] - vitamin C, 14:36: mouth Medica l (ASCORBIC 47 daily . Center ACID WITH LOBITO HIPS) 500 MG tablet MULTIVIT-FL 2017-10 Yes QD Take by [facility] NERALS/FERR 2-20 mouth [facility] - OUS FUM 14:36: daily. Medical (MULTI 47 Center VITAMIN ORAL) omega-3 2017-10 Yes 2g Q.5D Take [address] acid ethyl 2-20 by mouth 2 [place] - esters 14:36: (two) Medical (LOVAZA) 1 47 times Center gram daily. capsule cholecalcif 2017-10 Yes 5000U Take 5,[address] vidya, 2-20 Units by [facility] - vitamin D3, 14:36: mouth 2 Med ical 5,000 unit 47 (two) Center Tab times daily with breakfast and dinner. memantine 2017-10 Yes 5mg QD Take [address] (NAMENDA) 5 2-20 by mouth [facility] - MG tablet 14:36: daily. Medica l 47 Center dorzolamide 2017-10 Yes 1[drp] Q.5D Place [address] -timolol 2-20 drop into [facility] - (COSOPT) 14:36: both eyes Medi dennise 22.3-6.8 47 2 (two) Center mg/mL times ophthalmic daily. solution atorvastati 2017-10 Yes 40mg QD Take [address] n (LIPITOR) 2-20 tablet (40 Sandy kes - 40 MG 00:00: mg total) Medical tablet 00 by mouth Center nightly. docusate 2017-10 Yes 100mg Take [address] [facility] [facility] sodium 2-20 capsule [facility] - (COLACE) 00:00: (100 mg Medica l 100 MG 00 total) by Center capsule mouth 2 (two) times daily as needed for Constipati on. timolol 2018-[address] [facility] (TIMOPTIC) 4-19 both eyes [facility] - 0.5 % 00:00: 2 (two) Medical ophthalmic 00 times Center solution daily . Procedures This patient has no known procedures. Plan of Care Planned Activity Planned Date Details Comments Source Future Scheduled 2020-06-10 INFLUENZA VACCINE (#1) [facility] Test 00:00:00 [code = INFLUENZA Medical Ce nter VACCINE (#1)] Future Scheduled 2019-10-[address] [facility] - Test 00:00:00 (12+) [code = [facility] DEPRESSION SCREENING (12+)] Future Scheduled 2005-06-[address] [facility] - Test 00:00:00 WELLNESS (YEAR 2 or Medical Center FIRST YEAR if no IPPE) [code = MEDICARE ANNUAL WELLNESS (YEAR 2 or FIRST YEAR if no IPPE)] Future Scheduled 2004 PNEUMOCOCCAL 65+ [facility]RS [facility] - Test 00:00:00 (1 of 1 - Medical Center [id number]) [code = PNEUMOCOCCAL 65+ YRS (1 of 1 - [id number] PCV13)] Results Test Description Test Time Test Comments Results Result [facility] e Comments TISSUE EXAM 2018-10-04 Surgical Pathology 14:19:00 Report Case: [id number] Authorizing Provider: Jhonathan Sharma MD Collected: 09/25/2018 1808 Ordering Location: [address] Received: 09/26/2018 0927 Service Pathologist: Haris Jeter MD Specimen: Plaque, arterial plaque ARTERY, LEFT FEMORAL, ENDARTERECTOMY:CALCIFI C ATHEROSCLEROTIC PLAQUE Signing Pathologist Direct Phone Line: [phone] ally signed by Haris Jeter MD on 10/04/2018 at 2:19 [id number]; [id number] femoral artery plaqueArterial plaqueThe specimen is received in saline labeled with the patient's information labeled "arterial plaque" and consists of previously opened calcified segment of tissue measuring 2.5 cm in length x 0.5 cm in circumference. Actuarial Internship sections are submitted A1 for decalcification. CG/pl Performed POCT-GLUCOSE METER 2018-09-28 13:44:00 Test Item Value Reference Range Interpretation Comme nts POC-GLUCOSE METER (BEAKER) (test 326 mg/dL 70-110 H TESTED AT [facility] [address] code = 1538) [facility] 7703 0 POCT-GLUCOSE [id number] 11:32:00 Test Item Value Reference Range Interpretation Comments POC-GLUCOSE METER 150 mg/dL 70-110 H TESTED AT [facility] [address] (BEAKER) (test code = [place] [facility] 1538) [id number] 04:26:00 Test Item Value Reference Range Interpretation Comments MAGNESIUM (BEAKER) (test code = 1.6 mg/dL 1.6-2.6 627) BASIC METABOLIC [id number] 04:26:00 Test Item Value Reference Range Interpretation Comments SODIUM (BEAKER) 138 meq/L 136-145 (test code = 381) POTASSIUM (BEAKER) 3.6 meq/L 3.5-5.1 (test code = 379) CHLORIDE (BEAKER) 103 meq/L 98-107 (test code = 382) CO2 (BEAKER) (test 27 meq/L 22-29 code = 355) BLOOD UREA NITROGEN 30 mg/dL 7-21 H (BEAKER) (test code = 354) CREATININE (BEAKER) 1.04 mg/dL 0.57-1.25 (test code = 358) GLUCOSE RANDOM 115 mg/dL 70-105 H (BEAKER) (test code = 652) CALCIUM (BEAKER) 8.8 mg/dL 8.4-10.2 (test code = 697) EGFR (BEAKER) (test 69 mL/min/1.73 ESTIMA RUTH GFR IS code = 1092) sq m NOT ACCURATE CREATININE CLEARANCE IN PREDICTING GLOMERULAR FILTRATION RATE . ESTIMATED GFR I S NOT APPLICABLE FOR DIALYSIS PATIEN TS. CBC W/PLT COUNT & AUTO [id number] 04:09:00 Test Item Value Reference Range Interpretation Comments WHITE BLOOD CELL COUNT (BEAKER) 9.4 K/ L 3.5-10.5 (test code = 775) RED BLOOD CELL COUNT (BEAKER) 2.67 M/ L 4.63-6.08 L (test code = 761) HEMOGLOBIN (BEAKER) (test code = 8.4 GM/DL 13.7-17.5 L 410) HEMATOCRIT (BEAKER) (test code = 25.7 % 40.1-51.0 L 411) MEAN CORPUSCULAR VOLUME (BEAKER) 96.3 fL 79.0-92.2 H (test code = 753) MEAN CORPUSCULAR HEMOGLOBIN 31.5 pg 25.7-32.2 (BEAKER) (test code = 751) MEAN CORPUSCULAR HEMOGLOBIN CONC 32.7 GM/DL 32.3-36.5 (BEAKER) (test code = 752) RED CELL DISTRIBUTION WIDTH 12.4 % 11.6-14.4 (BEAKER) (test code = 412) PLATELET COUNT (BEAKER) (test 213 K/CU MM 150-450 code = 756) MEAN PLATELET VOLUME (BEAKER) 9.9 fL 9.4-12.4 (test code = 754) NUCLEATED RED BLOOD CELLS 0 /100 WBC 0-0 (BEAKER) (test code = 413) NEUTROPHILS RELATIVE PERCENT 70 % (BEAKER) (test code = 429) LYMPHOCYTES RELATIVE PERCENT 12 % (BEAKER) (test code = 430) MONOCYTES RELATIVE PERCENT 12 % (BEAKER) (test code = 431) EOSINOPHILS RELATIVE PERCENT 5 % (BEAKER) (test code = 432) BASOPHILS RELATIVE PERCENT 1 % (BEAKER) (test code = 437) NEUTROPHILS ABSOLUTE COUNT 6.50 K/ L 1.78-5.38 H (BEAKER) (test code = 670) LYMPHOCYTES ABSOLUTE COUNT 1.10 K/ L 1.32-3.57 L (BEAKER) (test code = 414) MONOCYTES ABSOLUTE COUNT (BEAKER) 1.16 K/ L 0.30-0.82 H (test code = 415) EOSINOPHILS ABSOLUTE COUNT 0.49 K/ L 0.04-0.54 (BEAKER) (test code = 416) BASOPHILS ABSOLUTE COUNT (BEAKER) 0.05 K/ L 0.01-0.08 (test code = 417) IMMATURE GRANULOCYTES-RELATIVE 1 % 0-1 PERCENT (BEAKER) (test code = 2801) [id number] 03:49:00 Test Item Value Reference Range Interpretation Comments MAGNESIUM (BEAKER) (test code = 1.7 mg/dL 1.6-2.6 627) BASIC METABOLIC [id number] 03:49:00 Test Item Value Reference Range Interpretation Comments SODIUM (BEAKER) 136 meq/L 136-145 (test code = 381) POTASSIUM (BEAKER) 3.5 meq/L 3.5-5.1 (test code = 379) CHLORIDE (BEAKER) 102 meq/L 98-107 (test code = 382) CO2 (BEAKER) (test 27 meq/L 22-29 code = 355) BLOOD UREA NITROGEN 31 mg/dL 7-21 H (BEAKER) (test code = 354) CREATININE (BEAKER) 1.22 mg/dL 0.57-1.25 (test code = 358) GLUCOSE RANDOM 122 mg/dL 70-105 H (BEAKER) (test code = 652) CALCIUM (BEAKER) 8.9 mg/dL 8.4-10.2 (test code = 697) EGFR (BEAKER) (test 57 mL/min/1.73 ESTIMA RUTH GFR IS code = 1092) sq m NOT ACCURATE CREATININE CLEARANCE IN PREDICTING GLOMERULAR FILTRATION RATE . ESTIMATED GFR I S NOT APPLICABLE FOR DIALYSIS PATIEN TS. CBC W/PLT COUNT & AUTO [id number] 03:32:00 Test Item Value Reference Range Interpretation Comments WHITE BLOOD CELL COUNT (BEAKER) 10.0 K/ L 3.5-10.5 (test code = 775) RED BLOOD CELL COUNT (BEAKER) 2.75 M/ L 4.63-6.08 L (test code = 761) HEMOGLOBIN (BEAKER) (test code = 8.7 GM/DL 13.7-17.5 L 410) HEMATOCRIT (BEAKER) (test code = 26.7 % 40.1-51.0 L 411) MEAN CORPUSCULAR VOLUME (BEAKER) 97.1 fL 79.0-92.2 H (test code = 753) MEAN CORPUSCULAR HEMOGLOBIN 31.6 pg 25.7-32.2 (BEAKER) (test code = 751) MEAN CORPUSCULAR HEMOGLOBIN CONC 32.6 GM/DL 32.3-36.5 (BEAKER) (test code = 752) RED CELL DISTRIBUTION WIDTH 12.5 % 11.6-14.4 (BEAKER) (test code = 412) PLATELET COUNT (BEAKER) (test 189 K/CU MM 150-450 code = 756) MEAN PLATELET VOLUME (BEAKER) 9.9 fL 9.4-12.4 (test code = 754) NUCLEATED RED BLOOD CELLS 0 /100 WBC 0-0 (BEAKER) (test code = 413) NEUTROPHILS RELATIVE PERCENT 74 % (BEAKER) (test code = 429) LYMPHOCYTES RELATIVE PERCENT 10 % (BEAKER) (test code = 430) MONOCYTES RELATIVE PERCENT 11 % (BEAKER) (test code = 431) EOSINOPHILS RELATIVE PERCENT 4 % (BEAKER) (test code = 432) BASOPHILS RELATIVE PERCENT 1 % (BEAKER) (test code = 437) NEUTROPHILS ABSOLUTE COUNT 7.39 K/ L 1.78-5.38 H (BEAKER) (test code = 670) LYMPHOCYTES ABSOLUTE COUNT 0.99 K/ L 1.32-3.57 L (BEAKER) (test code = 414) MONOCYTES ABSOLUTE COUNT (BEAKER) 1.12 K/ L 0.30-0.82 H (test code = 415) EOSINOPHILS ABSOLUTE COUNT 0.40 K/ L 0.04-0.54 (BEAKER) (test code = 416) BASOPHILS ABSOLUTE COUNT (BEAKER) 0.06 K/ L 0.01-0.08 (test code = 417) IMMATURE GRANULOCYTES-RELATIVE 1 % 0-1 PERCENT (BEAKER) (test code = 2801) [id number] 10:17:00 Test Item Value Reference Range Interpretation Comments MAGNESIUM (BEAKER) (test code = 1.6 mg/dL 1.6-2.6 627) BASIC METABOLIC [id number] 10:17:00 Test Item Value Reference Range Interpretation Comments SODIUM (BEAKER) 135 meq/L 136-145 L (test code = 381) POTASSIUM (BEAKER) 3.8 meq/L 3.5-5.1 (test code = 379) CHLORIDE (BEAKER) 101 meq/L 98-107 (test code = 382) CO2 (BEAKER) (test 27 meq/L 22-29 code = 355) BLOOD UREA NITROGEN 30 mg/dL 7-21 H (BEAKER) (test code = 354) CREATININE (BEAKER) 1.23 mg/dL 0.57-1.25 (test code = 358) GLUCOSE RANDOM 120 mg/dL 70-105 H (BEAKER) (test code = 652) CALCIUM (BEAKER) 8.6 mg/dL 8.4-10.2 (test code = 697) EGFR (BEAKER) (test 57 mL/min/1.73 ESTIMA RUTH GFR IS code = 1092) sq m NOT ACCURATE CREATININE CLEARANCE IN PREDICTING GLOMERULAR FILTRATION RATE . ESTIMATED GFR I S NOT APPLICABLE FOR DIALYSIS PATIEN TS. CBC W/PLT COUNT & AUTO [id number] 03:47:00 Test Item Value Reference Range Interpretation Comments WHITE BLOOD CELL COUNT (BEAKER) 10.0 K/ L 3.5-10.5 (test code = 775) RED BLOOD CELL COUNT (BEAKER) 2.80 M/ L 4.63-6.08 L (test code = 761) HEMOGLOBIN (BEAKER) (test code = 8.9 GM/DL 13.7-17.5 L 410) HEMATOCRIT (BEAKER) (test code = 26.9 % 40.1-51.0 L 411) MEAN CORPUSCULAR VOLUME (BEAKER) 96.1 fL 79.0-92.2 H (test code = 753) MEAN CORPUSCULAR HEMOGLOBIN 31.8 pg 25.7-32.2 (BEAKER) (test code = 751) MEAN CORPUSCULAR HEMOGLOBIN CONC 33.1 GM/DL 32.3-36.5 (BEAKER) (test code = 752) RED CELL DISTRIBUTION WIDTH 12.5 % 11.6-14.4 (BEAKER) (test code = 412) PLATELET COUNT (BEAKER) (test 212 K/CU MM 150-450 code = 756) MEAN PLATELET VOLUME (BEAKER) 9.4 fL 9.4-12.4 (test code = 754) NUCLEATED RED BLOOD CELLS 0 /100 WBC 0-0 (BEAKER) (test code = 413) NEUTROPHILS RELATIVE PERCENT 77 % (BEAKER) (test code = 429) LYMPHOCYTES RELATIVE PERCENT 9 % (BEAKER) (test code = 430) MONOCYTES RELATIVE PERCENT 12 % (BEAKER) (test code = 431) EOSINOPHILS RELATIVE PERCENT 2 % (BEAKER) (test code = 432) BASOPHILS RELATIVE PERCENT 0 % (BEAKER) (test code = 437) NEUTROPHILS ABSOLUTE COUNT 7.65 K/ L 1.78-5.38 H (BEAKER) (test code = 670) LYMPHOCYTES ABSOLUTE COUNT 0.92 K/ L 1.32-3.57 L (BEAKER) (test code = 414) MONOCYTES ABSOLUTE COUNT (BEAKER) 1.17 K/ L 0.30-0.82 H (test code = 415) EOSINOPHILS ABSOLUTE COUNT 0.16 K/ L 0.04-0.54 (BEAKER) (test code = 416) BASOPHILS ABSOLUTE COUNT (BEAKER) 0.04 K/ L 0.01-0.08 (test code = 417) IMMATURE GRANULOCYTES-RELATIVE 1 % 0-1 PERCENT (BEAKER) (test code = 2801) [id number] 17:44:00 Test Item Value Reference Range Interpretation Comments ACTIVATED CLOTTING TIME 131 sec TEST ED AT [facility] 67[address] (BEAKER) (test code = [place] [address]) [id number] BLOOD GAS, [id number] 17:15:00 Test Item Value Reference Range Interpretation Comments PH ARTERIAL (BEAKER) (test code = 7.36 7.35-7.45 383) PCO2 ARTERIAL (BEAKER) (test code 49 mmHg 35-45 H = 384) PO2 ARTERIAL (BEAKER) (test code = 119 mmHg 80-90 H 385) O2 SATURATION ARTERIAL (BEAKER) 98.3 % 96.0-97.0 H (test code = 386) HCO3 ARTERIAL (BEAKER) (test code 28 mmol/L 21-29 = 388) BASE EXCESS ARTERIAL (BEAKER) 1.2 mmol/L -2.0-3.0 (test code = 387) PATIENT TEMPERATURE (BEAKER) (test 35.4 C code = 1818) FIO2 (BEAKER) (test code = 1819) 30.0 % SODIUM NA-STAT [id number] 17:15:00 Test Item Value Reference Range Interpretation Comments SODIUM (BEAKER) (test code = 381) 132 meq/L 135-148 L HGB/HCT (H&H) - STAT [id number] 17:15:00 Test Item Value Reference Range Interpretation Comments HEMOGLOBIN (BEAKER) (test code = 11.2 g/dL 13.0-16.8 L 410) HEMATOCRIT (BEAKER) (test code = 33.0 % 40.0-50.0 L 411) GLUCOSE-STAT [id number] 17:14:00 Test Item Value Reference Range Interpretation Comments GLUCOSE RANDOM (BEAKER) (test code 104 mg/dL 70-110 = 652) POTASSIUM-STAT [id number] 17:14:00 Test Item Value Reference Range Interpretation Comments POTASSIUM (BEAKER) (test code = 4.1 meq/L 3.6-5.5 379) [id number] 17:11:00 Test Item Value Reference Range Interpretation Comments ACTIVATED CLOTTING TIME 268 sec TEST ED AT [place] [address] (BEAKER) (test code = [facility] [place] [address]) [id number] 16:12:00 Test Item Value Reference Range Interpretation Comments ACTIVATED CLOTTING TIME 257 sec TEST ED AT [place] [address] (BEAKER) (test code = [facility] [place] [address]) [address] BASIC METABOLIC [id number] 07:04:00 Test Item Value Reference Range Interpretation Comments SODIUM (BEAKER) 132 meq/L 136-145 L (test code = 381) POTASSIUM (BEAKER) 4.0 meq/L 3.5-5.1 (test code = 379) CHLORIDE (BEAKER) 99 meq/L 98-107 (test code = 382) CO2 (BEAKER) (test 24 meq/L 22-29 code = 355) BLOOD UREA NITROGEN 30 mg/dL 7-21 H (BEAKER) (test code = 354) CREATININE (BEAKER) 1.14 mg/dL 0.57-1.25 (test code = 358) GLUCOSE RANDOM 101 mg/dL 70-105 (BEAKER) (test code = 652) CALCIUM (BEAKER) 9.1 mg/dL 8.4-10.2 (test code = 697) EGFR (BEAKER) (test 62 mL/min/1.73 ESTIMA RUTH GFR IS code = 1092) sq m NOT ACCURATE CREATININE CLEARANCE IN PREDICTING GLOMERULAR FILTRATION RATE . ESTIMATED GFR I S NOT APPLICABLE FOR DIALYSIS PATIEN TS. CBC (HEMOGRAM ONLY)2018-09-25 06:47:00 Test Item Value Reference Range Interpretation Comments WHITE BLOOD CELL COUNT (BEAKER) 10.4 K/ L 3.5-10.5 (test code = 775) RED BLOOD CELL COUNT (BEAKER) 3.34 M/ L 4.63-6.08 L (test code = 761) HEMOGLOBIN (BEAKER) (test code = 10.6 GM/DL 13.7-17.5 L 410) HEMATOCRIT (BEAKER) (test code = 32.7 % 40.1-51.0 L 411) MEAN CORPUSCULAR VOLUME (BEAKER) 97.9 fL 79.0-92.2 H (test code = 753) MEAN CORPUSCULAR HEMOGLOBIN 31.7 pg 25.7-32.2 (BEAKER) (test code = 751) MEAN CORPUSCULAR HEMOGLOBIN CONC 32.4 GM/DL 32.3-36.5 (BEAKER) (test code = 752) RED CELL DISTRIBUTION WIDTH 12.4 % 11.6-14.4 (BEAKER) (test code = 412) PLATELET COUNT (BEAKER) (test 248 K/CU MM 150-450 code = 756) MEAN PLATELET VOLUME (BEAKER) 9.4 fL 9.4-12.4 (test code = 754) NUCLEATED RED BLOOD CELLS 0 /100 WBC 0-0 (BEAKER) (test code = 413) URINALYSIS W/ REFLEX URINE [id number] 13:29:00 Test Item Value Reference Range Interpretation Comments COLOR (BEAKER) (test code = 470) Light Yellow CLARITY (BEAKER) (test code = Clear 469) SPECIFIC GRAVITY UA (BEAKER) 1.006 1.001-1.035 (test code = 468) PH UA (BEAKER) (test code = 467) 7.0 5.0-8.0 PROTEIN UA (BEAKER) (test code = Negative Negative 464) GLUCOSE UA (BEAKER) (test code = Negative Negative 365) KETONES UA (BEAKER) (test code = Negative Negative 371) BILIRUBIN UA (BEAKER) (test code Negative Negative = 462) BLOOD UA (BEAKER) (test code = Negative Negative 461) NITRITE UA (BEAKER) (test code = Negative Negative 465) LEUKOCYTE ESTERASE UA (BEAKER) Negative Negative (test code = 466) UROBILINOGEN UA (BEAKER) (test 0.2 mg/dL 0.2-1.0 code = 463) RBC UA (BEAKER) (test code = < /HPF 519) WBC UA (BEAKER) (test code = < /HPF 520) SOURCE(BEAKER) (test code = 2795) BASIC METABOLIC [id number] 06:55:00 Test Item Value Reference Range Interpretation Comments SODIUM (BEAKER) 132 meq/L 136-145 L (test code = 381) POTASSIUM (BEAKER) 4.2 meq/L 3.5-5.1 (test code = 379) CHLORIDE (BEAKER) 97 meq/L 98-107 L (test code = 382) CO2 (BEAKER) (test 26 meq/L 22-29 code = 355) BLOOD UREA NITROGEN 23 mg/dL 7-21 H (BEAKER) (test code = 354) CREATININE (BEAKER) 1.14 mg/dL 0.57-1.25 (test code = 358) GLUCOSE RANDOM 79 mg/dL 70-105 (BEAKER) (test code = 652) CALCIUM (BEAKER) 9.5 mg/dL 8.4-10.2 (test code = 697) EGFR (BEAKER) (test 62 mL/min/1.73 ESTIMA RUTH GFR IS code = 1092) sq m NOT ACCURATE CREATININE CLEARANCE IN PREDICTING GLOMERULAR FILTRATION RATE . ESTIMATED GFR I S NOT APPLICABLE FOR DIALYSIS PATIEN TS. CBC (HEMOGRAM ONLY)2018-09-24 05:48:00 Test Item Value Reference Range Interpretation Comments WHITE BLOOD CELL COUNT (BEAKER) 14.3 K/ L 3.5-10.5 H (test code = 775) RED BLOOD CELL COUNT (BEAKER) 3.91 M/ L 4.63-6.08 L (test code = 761) HEMOGLOBIN (BEAKER) (test code = 12.3 GM/DL 13.7-17.5 L 410) HEMATOCRIT (BEAKER) (test code = 37.8 % 40.1-51.0 L 411) MEAN CORPUSCULAR VOLUME (BEAKER) 96.7 fL 79.0-92.2 H (test code = 753) MEAN CORPUSCULAR HEMOGLOBIN 31.5 pg 25.7-32.2 (BEAKER) (test code = 751) MEAN CORPUSCULAR HEMOGLOBIN CONC 32.5 GM/DL 32.3-36.5 (BEAKER) (test code = 752) RED CELL DISTRIBUTION WIDTH 12.5 % 11.6-14.4 (BEAKER) (test code = 412) PLATELET COUNT (BEAKER) (test 277 K/CU MM 150-450 code = 756) MEAN PLATELET VOLUME (BEAKER) 9.1 fL 9.4-12.4 L (test code = 754) NUCLEATED RED BLOOD CELLS 0 /100 WBC 0-0 (BEAKER) (test code = 413) POCT-GLUCOSE [id number] 18:09:00 Test Item Value Reference Range Interpretation Comments POC-GLUCOSE METER 99 mg/dL 70-110 TESTED AT [facility] 6720 (BEAKER) (test code = [place] [facility] [address] 1538) POCT-GLUCOSE [id number] 13:47:00 Test Item Value Reference Range Interpretation Comments POC-GLUCOSE METER 144 mg/dL 70-110 H TESTED AT [facility] 6720 (BANNER) (test code = [facility] 1538) [address] U/S, [id number] 11:20:00Laterality?->Left Reason for exam:->left sided pleural effusion - prior to TAVR Specimen to becollected:->cell count/diff, protein, LDH, culture, gram stain, albumin Should this be performed at the bedside?->NoFINAL REPORT INDICATION: Left pleural effusion Limited left chest ultrasound.IMPRESSION: Ultrasound examination of the left chest was performed in preparation for left thoracente sis. However, only trace amount of fluid is seen in the left pleural space, not amenable for safe drainage. Thoracentesis is therefore not performed. Signed: [facility] Verified Date/Time: 09/23/2018 11:20:35 Reading Location: [address] Consult Reading Room PROTHROMBIN [id number] 05:40:00 Test Item Value Reference Range Interpretation Comments PROTIME (BEAKER) (test code = 14.7 seconds 11.7-14.7 759) INR (BEAKER) (test code = 370) 1.2 <=5.9 RECOMMENDED COUMADIN/WARFARIN INR THERAPY RANGESSTANDARD DOSE: 2.0 - 3.0 Includes: PROPHYLAXIS forvenous thrombosis, systemic embolization; TREATMENT for venous thrombosis and/or pulmonary embolus.HIGH RISK: Target INR is 2.5-3.5 for patients with mechanical heart valves.[id number] 05:40:00 Test Item Value Reference Range Interpretation Comments PARTIAL THROMBOPLASTIN TIME 31.6 seconds 22.5-36.0 (BEAKER) (test code = 760) [id number] 05:21:00 Test Item Value Reference Range Interpretation Comments MAGNESIUM (BEAKER) (test code = 1.6 mg/dL 1.6-2.6 627) BASIC METABOLIC [id number] 05:21:00 Test Item Value Reference Range Interpretation Comments SODIUM (BEAKER) 132 meq/L 136-145 L (test code = 381) POTASSIUM (BEAKER) 3.5 meq/L 3.5-5.1 (test code = 379) CHLORIDE (BEAKER) 96 meq/L 98-107 L (test code = 382) CO2 (BEAKER) (test 28 meq/L 22-29 code = 355) BLOOD UREA NITROGEN 22 mg/dL 7-21 H (BEAKER) (test code = 354) CREATININE (BEAKER) 1.06 mg/dL 0.57-1.25 (test code = 358) GLUCOSE RANDOM 108 mg/dL 70-105 H (BEAKER) (test code = 652) CALCIUM (BEAKER) 9.2 mg/dL 8.4-10.2 (test code = 697) EGFR (BEAKER) (test 67 mL/min/1.73 ESTIMA RUTH GFR IS code = 1092) sq m NOT ACCURATE CREATININE CLEARANCE IN PREDICTING GLOMERULAR FILTRATION RATE . ESTIMATED GFR I S NOT APPLICABLE FOR DIALYSIS PATIEN TS. [id number] 05:20:00 Test Item Value Reference Range Interpretation Comments MAGNESIUM (BEAKER) (test code = 1.5 mg/dL 1.6-2.6 L 627) BASIC METABOLIC [id number] 05:20:00 Test Item Value Reference Range Interpretation Comments SODIUM (BEAKER) 135 meq/L 136-145 L (test code = 381) POTASSIUM (BEAKER) 3.6 meq/L 3.5-5.1 (test code = 379) CHLORIDE (BEAKER) 98 meq/L 98-107 (test code = 382) CO2 (BEAKER) (test 29 meq/L 22-29 code = 355) BLOOD UREA NITROGEN 22 mg/dL 7-21 H (BEAKER) (test code = 354) CREATININE (BEAKER) 1.07 mg/dL 0.57-1.25 (test code = 358) GLUCOSE RANDOM 108 mg/dL 70-105 H (BEAKER) (test code = 652) CALCIUM (BEAKER) 9.3 mg/dL 8.4-10.2 (test code = 697) EGFR (BEAKER) (test 67 mL/min/1.73 ESTIMA RUTH GFR IS code = 1092) sq m NOT ACCURATE CREATININE CLEARANCE IN PREDICTING GLOMERULAR FILTRATION RATE . ESTIMATED GFR I S NOT APPLICABLE FOR DIALYSIS PATIEN TS. CBC W/PLT COUNT & AUTO [id number] 05:02:00 Test Item Value Reference Range Interpretation Comments WHITE BLOOD CELL COUNT (BEAKER) 8.3 K/ L 3.5-10.5 (test code = 775) RED BLOOD CELL COUNT (BEAKER) 3.67 M/ L 4.63-6.08 L (test code = 761) HEMOGLOBIN (BEAKER) (test code = 11.5 GM/DL 13.7-17.5 L 410) HEMATOCRIT (BEAKER) (test code = 35.0 % 40.1-51.0 L 411) MEAN CORPUSCULAR VOLUME (BEAKER) 95.4 fL 79.0-92.2 H (test code = 753) MEAN CORPUSCULAR HEMOGLOBIN 31.3 pg 25.7-32.2 (BEAKER) (test code = 751) MEAN CORPUSCULAR HEMOGLOBIN CONC 32.9 GM/DL 32.3-36.5 (BEAKER) (test code = 752) RED CELL DISTRIBUTION WIDTH 12.5 % 11.6-14.4 (BEAKER) (test code = 412) PLATELET COUNT (BEAKER) (test 285 K/CU MM 150-450 code = 756) MEAN PLATELET VOLUME (BEAKER) 9.2 fL 9.4-12.4 L (test code = 754) NUCLEATED RED BLOOD CELLS 0 /100 WBC 0-0 (BEAKER) (test code = 413) NEUTROPHILS RELATIVE PERCENT 71 % (BEAKER) (test code = 429) LYMPHOCYTES RELATIVE PERCENT 10 % (BEAKER) (test code = 430) MONOCYTES RELATIVE PERCENT 12 % (BEAKER) (test code = 431) EOSINOPHILS RELATIVE PERCENT 7 % (BEAKER) (test code = 432) BASOPHILS RELATIVE PERCENT 1 % (BEAKER) (test code = 437) NEUTROPHILS ABSOLUTE COUNT 5.88 K/ L 1.78-5.38 H (BEAKER) (test code = 670) LYMPHOCYTES ABSOLUTE COUNT 0.79 K/ L 1.32-3.57 L (BEAKER) (test code = 414) MONOCYTES ABSOLUTE COUNT (BEAKER) 1.01 K/ L 0.30-0.82 H (test code = 415) EOSINOPHILS ABSOLUTE COUNT 0.55 K/ L 0.04-0.54 H (BEAKER) (test code = 416) BASOPHILS ABSOLUTE COUNT (BEAKER) 0.06 K/ L 0.01-0.08 (test code = 417) IMMATURE GRANULOCYTES-RELATIVE 1 % 0-1 PERCENT (BEAKER) (test code = 2801) CBC (HEMOGRAM ONLY)2018-09-23 05:02:00 Test Item Value Reference Range Interpretation Comments WHITE BLOOD CELL COUNT (BEAKER) 8.3 K/ L 3.5-10.5 (test code = 775) RED BLOOD CELL COUNT (BEAKER) 3.67 M/ L 4.63-6.08 L (test code = 761) HEMOGLOBIN (BEAKER) (test code = 11.5 GM/DL 13.7-17.5 L 410) HEMATOCRIT (BEAKER) (test code = 35.0 % 40.1-51.0 L 411) MEAN CORPUSCULAR VOLUME (BEAKER) 95.4 fL 79.0-92.2 H (test code = 753) MEAN CORPUSCULAR HEMOGLOBIN 31.3 pg 25.7-32.2 (BEAKER) (test code = 751) MEAN CORPUSCULAR HEMOGLOBIN CONC 32.9 GM/DL 32.3-36.5 (BEAKER) (test code = 752) RED CELL DISTRIBUTION WIDTH 12.5 % 11.6-14.4 (BEAKER) (test code = 412) PLATELET COUNT (BEAKER) (test 285 K/CU MM 150-450 code = 756) MEAN PLATELET VOLUME (BEAKER) 9.2 fL 9.4-12.4 L (test code = 754) NUCLEATED RED BLOOD CELLS 0 /100 WBC 0-0 (BEAKER) (test code = 413) POCT-GLUCOSE [id number] 21:35:00 Test Item Value Reference Range Interpretation Comments POC-GLUCOSE METER 133 mg/dL 70-110 H TESTED AT [place] [address] (BEAKER) (test code = [place] 15[address]) [id number] POCT-GLUCOSE [id number] 17:37:00 Test Item Value Reference Range Interpretation Comments POC-GLUCOSE METER 147 mg/dL 70-110 H TESTED AT [place] [address] (BEAKER) (test code = SPENC[place] Cheng [place] 1538) [address] [id number] 17:19:00 Test Item Value Reference Range Interpretation Comments MAGNESIUM (BEAKER) (test code = 1.5 mg/dL 1.6-2.6 L 627) BASIC METABOLIC [id number] 17:19:00 Test Item Value Reference Range Interpretation Comments SODIUM (BEAKER) 136 meq/L 136-145 (test code = 381) POTASSIUM (BEAKER) 3.4 meq/L 3.5-5.1 L (test code = 379) CHLORIDE (BEAKER) 97 meq/L 98-107 L (test code = 382) CO2 (BEAKER) (test 31 meq/L 22-29 H code = 355) BLOOD UREA NITROGEN 21 mg/dL 7-21 (BEAKER) (test code = 354) CREATININE (BEAKER) 1.12 mg/dL 0.57-1.25 (test code = 358) GLUCOSE RANDOM 114 mg/dL 70-105 H (BEAKER) (test code = 652) CALCIUM (BEAKER) 9.6 mg/dL 8.4-10.2 (test code = 697) EGFR (BEAKER) (test 63 mL/min/1.73 ESTIMA RUTH GFR IS code = 1092) sq m NOT ACCURATE CREATININE CLEARANCE IN PREDICTING GLOMERULAR FILTRATION RATE . ESTIMATED GFR I S NOT APPLICABLE FOR DIALYSIS PATIEN TS. POCT-GLUCOSE [id number] 13:08:00 Test Item Value Reference Range Interpretation Comments POC-GLUCOSE METER 106 mg/dL 70-110 TESTED AT [place] [address] (BEAKER) (test code = [facility] [place] 1538) [address] POCT-GLUCOSE [id number] 21:49:00 Test Item Value Reference Range Interpretation Comments POC-GLUCOSE METER 116 mg/dL 70-110 H [facility] [place] [address] [facility] (test code = [facility] [place] 1538) [address] POCT-GLUCOSE [id number] 17:56:00 Test Item Value Reference Range Interpretation Comments POC-GLUCOSE METER 142 mg/dL 70-110 H TESTED AT [facility] ([place]AR[place]) (test code = [place] 1538) [address] CT, CTA, [id number] 14:55:00Addendum BeginsREPORT STATUS:A Addendum:There is increased density visualized in the left pleural fluid collection. Clinical correlation is needed if an inflammatory or hemorrhag ic process is suspected.I agree with the previously described non vascular findings. Signed: Dorota Ackerman MDReport Verified Date/Time: 09/21/2018 14:55:20 Reading Location: [place] [address] Angio Body Reading RoomAddendum EndsFINAL REPORT CT [...] passage of intravenous contrast material. Multi-planar 3-D volume- rendering reconstruction was performed using an independent workstation [...] pulmonary artery is normal in calibre. The car diac chambers demonstrate normal atrioventricular and ventriculoarterial concordance, [...] The left common femoral artery have increased ca lcific atherosclerosis seen with whvc-gz-kcojnxje lesion identified. The right common femoral arteryis [...] and mild calcific atherosclerosis present. The minimum a nd the perpendicular left femoral artery measures 5.6 [...] An addendum will be dictated by the Auto Service Station Attendant Radiologist regarding the nonvascular findings. Signed: Shawn Barnes MDReport Verified Date/Time: 09/21/2018 14:01:54 Reading Location: [place] [address], CTA [id number] 14:55:00 Addendum BeginsREPORT STATUS:A Addendum:There is increased density visualized in the left pleural fluid collection. Clinical correlation is needed if an inflammatory or hemorrhagic process is suspected.I agree with the previously described non vascular findings. Signed: Dorota Ackerman Verified Date/Time: 09/21/2018 14:55:20 Reading Location: [place] [id number] Angio Body Reading RoomAddendum EndsFINAL REPORT CT [...] artery have increased calcific atherosclerosis seen with tgop-ak-rttejthz lesion identified. The right common femoral arteryis [...] inferiorly on the most distal right common femo ral artery/origin of the right SFA, severe calcification [...] prior granulomatous disease. 4. Other findings as klaus cribed above. 5. An addendum will be dictated by the Auto Service Station Attendant Radiologist regarding the nonvascular findings. Signed: Shawn Barnes MDReport Verified Date/Time: 09/21/2018 14:01:54 Reading Location: [place] [address] Cardiology MRI [facility] METABOLIC [id number] 07:01:00 Test Item Value Reference Range Interpretation Comments SODIUM (BEAKER) 129 meq/L 136-145 L (test code = 381) POTASSIUM (BEAKER) 3.3 meq/L 3.5-5.1 L (test code = 379) CHLORIDE (BEAKER) 96 meq/L 98-107 L (test code = 382) CO2 (BEAKER) (test 24 meq/L 22-29 code = 355) BLOOD UREA NITROGEN 20 mg/dL 7-21 (BEAKER) (test code = 354) CREATININE (BEAKER) 1.07 mg/dL 0.57-1.25 (test code = 358) GLUCOSE RANDOM 104 mg/dL 70-105 (BEAKER) (test code = 652) CALCIUM (BEAKER) 8.8 mg/dL 8.4-10.2 (test code = 697) EGFR (BEAKER) (test 67 mL/min/1.73 ESTIMA RUTH GFR IS code = 1092) sq m NOT ACCURATE CREATININE CLEARANCE IN PREDICTING GLOMERULAR FILTRATION RATE . ESTIMATED GFR I S NOT APPLICABLE FOR DIALYSIS PATIEN TS. POCT-GLUCOSE [id number] 22:18:00 Test Item Value Reference Range Interpretation Comments POC-GLUCOSE METER 176 mg/dL 70-110 H TESTED AT [place] [address] ([facility]) (test code = SPENCER Skylar [facility] 1538) [address] RAD, CHEST, 1 VIEW, NON [id number] 20:32:00Reason for exam:->SOBShould this be performed at [...] position. Signed: Ramses Rueda Verified Date/Time: 09/20/2018 20:32:40 Reading Location: [facility] Radiology Reading Room POCT- GLUCOSE [id number] 17:05:00 Test Item Value Reference Range Interpretation Comments POC-GLUCOSE METER 164 mg/dL 70-110 H TESTED AT [place] [address] ([facility]) (test code = SPENCER Cheng [facility] 1538) [id number] POCT-GLUCOSE [id number] 13:55:00 Test Item Value Reference Range Interpretation Comments POC-GLUCOSE METER 105 mg/dL 70-110 [facility] [place] [address] [facility] (test code = SPENCER Cheng [facility] 1538) [id number] POCT-GLUCOSE [id number] 09:01:00 Test Item Value Reference Range Interpretation Comments POC-GLUCOSE METER 116 mg/dL 70-110 H TESTED AT [place] [address] [facility] (test code = [facility] Skylar [facility] 1538) [address] BASIC METABOLIC [id number] 05:36:00 Test Item Value Reference Range Interpretation Comments SODIUM (BEAKER) 131 meq/L 136-145 L (test code = 381) POTASSIUM (BEAKER) 3.8 meq/L 3.5-5.1 (test code = 379) CHLORIDE (BEAKER) 100 meq/L 98-107 (test code = 382) CO2 (BEAKER) (test 23 meq/L 22-29 code = 355) BLOOD UREA NITROGEN 12 mg/dL 7-21 (BEAKER) (test code = 354) CREATININE (BEAKER) 0.81 mg/dL 0.57-1.25 (test code = 358) GLUCOSE RANDOM 102 mg/dL 70-105 (BEAKER) (test code = 652) CALCIUM (BEAKER) 9.1 mg/dL 8.4-10.2 (test code = 697) EGFR (BEAKER) (test 92 mL/min/1.73 ESTIMA RUTH GFR IS code = 1092) sq m NOT ACCURATE CREATININE CLEARANCE IN PREDICTING GLOMERULAR FILTRATION RATE . ESTIMATED GFR I S NOT APPLICABLE FOR DIALYSIS PATIEN TS. POCT-GLUCOSE [id number] 23:13:00 Test Item Value Reference Range Interpretation Comments POC-GLUCOSE METER 119 mg/dL 70-110 H TESTED AT [place] [address] (BEAKER) (test code = [facility] Skyl[place] [facility] 1538) [id number] POCT-GLUCOSE [id number] 18:21:00 Test Item Value Reference Range Interpretation Comments POC-GLUCOSE METER 155 mg/dL 70-110 H [facility] AT [place] [address] [facility] (test code = [facility] 1538) [address] HEMOGLOBIN [id number] 12:52:00 Test Item Value Reference Range Interpretation Comments HEMOGLOBIN A1C (BEAKER) (test code = 6.4 % 4.3-6.1 H 368) POCT-GLUCOSE [id number] 09:22:00 Test Item Value Reference Range Interpretation Comments POC-GLUCOSE METER 99 mg/dL 70-110 TESTED AT [facility] (BEAKER) (test code = [place] [address]) BASIC METABOLIC [id number] 06:48:00 Test Item Value Reference Range Interpretation Comments SODIUM (BEAKER) 128 meq/L 136-145 L (test code = 381) POTASSIUM (BEAKER) 4.2 meq/L 3.5-5.1 (test code = 379) CHLORIDE (BEAKER) 99 meq/L 98-107 (test code = 382) CO2 (BEAKER) (test 24 meq/L 22-29 code = 355) BLOOD UREA NITROGEN 15 mg/dL 7-21 (BEAKER) (test code = 354) CREATININE (BEAKER) 0.81 mg/dL 0.57-1.25 (test code = 358) GLUCOSE RANDOM 96 mg/dL 70-105 (BEAKER) (test code = 652) CALCIUM (BEAKER) 8.8 mg/dL 8.4-10.2 (test code = 697) EGFR (BEAKER) (test 92 mL/min/1.73 ESTIMA RUTH GFR IS code = 1092) sq m NOT ACCURATE CREATININE CLEARANCE IN PREDICTING GLOMERULAR FILTRATION RATE . ESTIMATED GFR I S NOT APPLICABLE FOR DIALYSIS PATIEN TS. TROPONIN [id number] 06:46:00 Test Item Value Reference Range Interpretation Comments TROPONIN I (BEAKER) (test code = 0.01 ng/mL 0.00-0.03 397) Troponin I (TnI) levels must be interpreted [...] and persistent tachyarrhythmia.CBC W/PLT COUNT & AUTO DIFFERENTIAL 2018-09-19 06:29:00 Test Item Value Reference Range Interpretation Comments WHITE BLOOD CELL COUNT (BEAKER) 8.2 K/ L 3.5-10.5 (test code = 775) RED BLOOD CELL COUNT (BEAKER) 3.40 M/ L 4.63-6.08 L (test code = 761) HEMOGLOBIN (BEAKER) (test code = 10.8 GM/DL 13.7-17.5 L 410) HEMATOCRIT (BEAKER) (test code = 32.1 % 40.1-51.0 L 411) MEAN CORPUSCULAR VOLUME (BEAKER) 94.4 fL 79.0-92.2 H (test code = 753) MEAN CORPUSCULAR HEMOGLOBIN 31.8 pg 25.7-32.2 (BEAKER) (test code = 751) MEAN CORPUSCULAR HEMOGLOBIN CONC 33.6 GM/DL 32.3-36.5 (BEAKER) (test code = 752) RED CELL DISTRIBUTION WIDTH 12.5 % 11.6-14.4 (BEAKER) (test code = 412) PLATELET COUNT (BEAKER) (test 257 K/CU MM 150-450 code = 756) MEAN PLATELET VOLUME (BEAKER) 9.6 fL 9.4-12.4 (test code = 754) NUCLEATED RED BLOOD CELLS 0 /100 WBC 0-0 (BEAKER) (test code = 413) NEUTROPHILS RELATIVE PERCENT 75 % (BEAKER) (test code = 429) LYMPHOCYTES RELATIVE PERCENT 10 % (BEAKER) (test code = 430) MONOCYTES RELATIVE PERCENT 11 % (BEAKER) (test code = 431) EOSINOPHILS RELATIVE PERCENT 3 % (BEAKER) (test code = 432) BASOPHILS RELATIVE PERCENT 0 % (BEAKER) (test code = 437) NEUTROPHILS ABSOLUTE COUNT 6.13 K/ L 1.78-5.38 H (BEAKER) (test code = 670) LYMPHOCYTES ABSOLUTE COUNT 0.81 K/ L 1.32-3.57 L (BEAKER) (test code = 414) MONOCYTES ABSOLUTE COUNT (BEAKER) 0.88 K/ L 0.30-0.82 H (test code = 415) EOSINOPHILS ABSOLUTE COUNT 0.27 K/ L 0.04-0.54 (BEAKER) (test code = 416) BASOPHILS ABSOLUTE COUNT (BEAKER) 0.03 K/ L 0.01-0.08 (test code = 417) IMMATURE GRANULOCYTES-RELATIVE 1 % 0-1 PERCENT (BEAKER) (test code = 2801) TROPONIN [id number] 01:37:00 Test Item Value Reference Range Interpretation Comments TROPONIN I (BEAKER) (test code = 397) < ng/mL 0.00-0.03 Troponin I (TnI) levels [...] disease, and persistent tachyarrhythmia.B-TYPE NATRIURETIC FACTOR (BNP) 2018-09-18 19:01:00 Test Item Value Reference Range Interpretation Comments B-TYPE NATRIURETIC PEPTIDE 1260 pg/mL 0-100 H (BEAKER) (test code = 700) COMPREHENSIVE METABOLIC [id number] 18:56:00 Test Item Value Reference Range Interpretation Comments TOTAL PROTEIN 6.6 gm/dL 6.0-8.3 (BEAKER) (test code = 770) ALBUMIN (BEAKER) 3.8 g/dL 3.5-5.0 (test code = 1145) ALKALINE PHOSPHATASE 90 U/L 40-150 (BEAKER) (test code = 346) BILIRUBIN TOTAL 0.8 mg/dL 0.2-1.2 (BEAKER) (test code = 377) SODIUM (BEAKER) (test 130 meq/L 136-145 L code = 381) POTASSIUM (BEAKER) 3.8 meq/L 3.5-5.1 (test code = 379) CHLORIDE (BEAKER) 96 meq/L 98-107 L (test code = 382) CO2 (BEAKER) (test 26 meq/L 22-29 code = 355) BLOOD UREA NITROGEN 20 mg/dL 7-21 (BEAKER) (test code = 354) CREATININE (BEAKER) 0.98 mg/dL 0.57-1.25 (test code = 358) GLUCOSE RANDOM 103 mg/dL 70-105 (BEAKER) (test code = 652) CALCIUM (BEAKER) 9.3 mg/dL 8.4-10.2 (test code = 697) AST (SGOT) (BEAKER) 26 U/L 5-34 (test code = 353) ALT (SGPT) (BEAKER) 32 U/L 6-55 (test code = 347) EGFR (BEAKER) (test 74 mL/min/1.73 ESTIMA RUTH GFR IS code = 1092) sq m NOT ACCURATE CREATININE CLEARANCE IN PREDICTING GLOMERULAR FILTRATION RATE . ESTIMATED GFR I S NOT APPLICABLE FOR DIALYSIS PATIEN TS. CBC W/PLT COUNT & AUTO [id number] 18:35:00 Test Item Value Reference Range Interpretation Comments WHITE BLOOD CELL COUNT (BEAKER) 10.5 K/ L 3.5-10.5 (test code = 775) RED BLOOD CELL COUNT (BEAKER) 3.51 M/ L 4.63-6.08 L (test code = 761) HEMOGLOBIN (BEAKER) (test code = 11.1 GM/DL 13.7-17.5 L 410) HEMATOCRIT (BEAKER) (test code = 33.5 % 40.1-51.0 L 411) MEAN CORPUSCULAR VOLUME (BEAKER) 95.4 fL 79.0-92.2 H (test code = 753) MEAN CORPUSCULAR HEMOGLOBIN 31.6 pg 25.7-32.2 (BEAKER) (test code = 751) MEAN CORPUSCULAR HEMOGLOBIN CONC 33.1 GM/DL 32.3-36.5 (BEAKER) (test code = 752) RED CELL DISTRIBUTION WIDTH 12.4 % 11.6-14.4 (BEAKER) (test code = 412) PLATELET COUNT (BEAKER) (test 268 K/CU MM 150-450 code = 756) MEAN PLATELET VOLUME (BEAKER) 9.3 fL 9.4-12.4 L (test code = 754) NUCLEATED RED BLOOD CELLS 0 /100 WBC 0-0 (BEAKER) (test code = 413) NEUTROPHILS RELATIVE PERCENT 75 % (BEAKER) (test code = 429) LYMPHOCYTES RELATIVE PERCENT 9 % (BEAKER) (test code = 430) MONOCYTES RELATIVE PERCENT 12 % (BEAKER) (test code = 431) EOSINOPHILS RELATIVE PERCENT 3 % (BEAKER) (test code = 432) BASOPHILS RELATIVE PERCENT 0 % (BEAKER) (test code = 437) NEUTROPHILS ABSOLUTE COUNT 7.89 K/ L 1.78-5.38 H (BEAKER) (test code = 670) LYMPHOCYTES ABSOLUTE COUNT 0.97 K/ L 1.32-3.57 L ([place]) (test code = 414) MONOCYTES ABSOLUTE COUNT ([place]NER) 1.21 K/ L 0.30-0.82 H (test code = 415) EOSINOPHILS ABSOLUTE COUNT 0.32 K/ L 0.04-0.54 (BANNER) (test code = 416) BASOPHILS ABSOLUTE COUNT ([facility]ANNER) 0.04 K/ L 0.01-0.08 (test code = 417) IMMATURE GRANULOCYTES-RELATIVE 1 % 0-1 PERCENT ([place]NER) (test code = 2801) POCT-GLUCOSE [id number] 17:14:00 Test Item Value Reference Range Interpretation Comments POC-GLUCOSE METER 172 mg/dL 70-110 H TESTED AT [facility] ([place]) (test code = [place] 1538) [id number]
[2020-10-14 19:32] LABS: Absolute Lymphocytes (CBC) 1.3 K/uL (0.7-4.9); Basophils % 0.9 % (0-1.3); Hematocrit 35.2 % (39.6-49.0); Lymphocytes % 13.6 % (15.3-44.8); MPV 7.7 fL (7.6-11.3); RBC Red Blood Cell Count 3.85 M/uL (4.33-5.43)
[2020-10-14 19:33] LABS: Protime INR 1.06
[2020-10-14 19:49] LABS: ALT/SGPT 28 U/L (12-78); AST/SGOT 25 U/L (15-37); Albumin 3.5 g/dL (3.4-5.0); Alkaline Phosphatase 113 U/L (45-117); BUN Blood Urea Nitrogen 26 mg/dL (7-18); Bicarbonate 29 mmol/L (21-32); Bilirubin Direct 0.2 mg/dL (0-0.2); Bilirubin Total 0.6 mg/dL (0.2-1.0); Glucose Level 105 mg/dL (74-106); Magnesium 2.2 mg/dL (1.8-2.4); NT PRO-BNP 1754 pg/mL (<450); Potassium 3.9 mmol/L (3.5-5.1); Protein, Total 7.4 g/dL (6.4-8.2); Sodium Level 138 mmol/L (136-145); Troponin (Emerg Dept Use Only) < 0.02 ng/mL (0.0-0.045)
--- NOTE | 2020-10-14 20:16 | RAD REPORT ---
EXAM DESCRIPTION: RAD - Chest Single View - 10/14/2020 7:26 pm CLINICAL HISTORY: SOB COMPARISON: Portable November 09, 2019 TECHNIQUE: AP portable chest image was obtained 10/14/2020 7:26 pm . FINDINGS: Prominent interstitial pattern throughout the lung harden. No peripheral mass or consolida tion. Left costophrenic angle blunting and obscured left hemidiaphragm similar to comparison. Sternot jez wires are in place. Heart size is prominent but stable. Upper lobe vasculature similar to compari son. No pneumothorax or new pleural effusion. No acute bony abnormality seen. No acute aortic finding s suspected. IMPRESSION: Chronic left base pleural and parenchymal opacification similar to October 2019.
--- NOTE | 2020-10-14 20:40 | EDPHYS ---
Physician Documentation [facility] Name: Jeb Lubin Sr Age: 80 yrs Sex: Male : 1940 Arrival Date: 10/14/2020 Time: 18:28 Bed 13 Private MD: ED Physician Andriy Rios HPI: 10/14 18:55 This 80 yrs old Male presents to ER via Wheelchair with complaints of cp Shortness Of Breath. 18:55 The patient has shortness of breath with light activity, when lying flat. Onset: The cp symptoms/episode began/occurred gradually. Duration: The symptoms are continuous, and are steadily getting worse. 18:55 The patient's shortness of breath is aggravated by light activity, lying flat. cp Associated signs and symptoms: Pertinent negatives: chest pain, productive cough, diaphoresis, fever. Severity of symptoms: in the emergency department the symptoms are unchanged despite home interventions. Historical: - Allergies: 18:38 PENICILLINS; tw2 18:38 Xarelto; tw2 - Home Meds: 18:38 amlodipine 10 mg tab 1 tab once daily [Active]; atorvastatin 40 mg Oral tab nightly tw2 [Active]; clopidogrel 75 mg Oral tab 1 tab once daily [Active]; docusate sodium 100 mg Oral cap 1 cap 2 times per day [Active]; dorzolamide-timolol 22.3-6.8 mg/mL ophthalmic drop 1 drop 2 times per day [Active]; furosemide 40 mg Oral tab 1 tab once daily [Active]; galantamine 4 mg Oral tab 1 tab 2 times per day [Active]; losartan 100 mg Oral tab 1 tab once daily [Active]; melatonin 5 mg Oral tab nightly [Active]; memantine 10 mg Oral tab 1 tab 2 times per day [Active]; Ocuvite 842-27-9-150 mr-viel-as-mg Oral cap daily [Active]; [employer]-3 350 mg-235 mg- 90 mg-597 mg Oral cpDR twice a day [Active]; pantoprazole 40 mg Oral TbEC 1 tab once daily [Active]; coconut oil 1,000 mg oral cap twice a day [Active]; Vitamin D3 5,000 unit Oral tab twice a day [Active]; sotalol 10 mg Oral tab 0.5 tab 2 times per day [Active]; polyethylene glycol 3350 17 gram/dose Oral powd once daily [Active]; Osteo Bi-Flex 250-200 mg Oral tab twice a day [Active]; zinc sulfate 220 (50) mg Oral cap [Active]; - PMHx: 18:38 Atrial Fib; Diabetes - NIDDM; Hypertension; tw2 - PSHx: 18:38 CABG; heart valve replacemnet; tw2 - Immunization history:: Adult Immunizations. - Social history:: Smoking status: Patient/guardian denies using tobacco, the patient reports quitting approximately 20 years ago. ROS: 19:00 Constitutional: Negative for body aches, chills, fever, poor PO intake. cp 19:00 Eyes: Negative for injury, pain, redness, and discharge. cp 19:00 ENT: Negative for ear pain, sore throat, difficulty swallowing, difficulty handling secretions. 19:00 Cardiovascular: Positive for edema, Negative for chest pain, palpitations. 19:00 Respiratory: Positive for orthopnea, shortness of breath, on exertion. Negative for wheezing. 19:00 Abdomen/GI: Negative for abdominal pain, nausea, vomiting, and diarrhea. 19:00 Back: Negative for radiated pain. 19:00 Neuro: Negative for altered mental status, dizziness, headache, syncope, weakness. 19:00 All other systems are negative. Exam: 19:05 Constitutional: The patient appears in no acute distress, alert, awake, cp non-diaphoretic, non-toxic, well developed, well nourished. 19:05 Head/Face: Normocephalic, atraumatic. cp 19:05 Eyes: Periorbital structures: appear normal, Conjunctiva: normal, no exudate, no injection, Sclera: no appreciated abnormality, Lids and lashes: appear normal, bilaterally. 19:05 ENT: External ear(s): are unremarkable, Nose: is normal, Mouth: Lips: moist, Oral mucosa: moist, Posterior pharynx: Airway: no evidence of obstruction, patent. 19:05 Chest/axilla: Inspection: normal, Palpation: is normal, no crepitus, no tenderness. 19:05 Cardiovascular: Rate: normal, Rhythm: regular, Edema: mild bilateral lower legs, JVD: is not appreciated. 19:05 Respiratory: the patient does not display signs of respiratory distress, Respirations: normal, no use of accessory muscles, no retractions, labored breathing, is not present, Breath sounds: decreased breath sounds, that are mild, throughout, wheezing: is not appreciated. 19:05 Abdomen/GI: Inspection: abdomen appears normal, Bowel sounds: active, all quadrants, Palpation: abdomen is soft and non-tender, in all quadrants. 19:05 Back: pain, is absent, ROM is normal. 19:05 Neuro: Orientation: to person, place \T\ time. Mentation: is normal, Motor: moves all fours, strength is normal, Gait: is steady. 19:10 ECG was reviewed by the Attending Physician. Vital Signs: 18:32 BP 189 / 77; Pulse 60; Resp 19; Temp 97.8(TE); Pulse Ox 99% on R/A; Weight 68.04 kg; tw2 Height 5 ft. 4 in. (162.56 cm) (R); Pain 0/10; 19:00 BP 210 / 70; Pulse 48; Resp 16; Pulse Ox 100% on R/A; ll2 20:00 BP 177 / 64; Pulse 55; Resp 17; Pulse Ox 98% on R/A; ll2 21:00 BP 193 / 84; Pulse 57; Resp 18; Pulse Ox 99% on R/A; ll2 22:00 BP 202 / 72; Pulse 51; Resp 16; Pulse Ox 99% on R/A; ll2 18:32 Body Mass Index 25.75 (68.04 kg, 162.56 cm) tw2 MDM: 18:51 Patient medically screened. [facility] 20:38 Data reviewed: vital signs, nurses notes, lab test result(s), EKG, radiologic studies, cp plain films. Test interpretation: by ED physician or midlevel provider: ECG. 20:40 Physician consultation: Aldair DOLL was contacted at 20:35, regarding admission, cp to the telemetry unit. patient's condition. 10/14 18:52 Order name: Basic Metabolic Panel; Complete Time: 19:54 cp 10/14 19:55 Interpretation: Normal except: BUN 26; CRE 1.50; GFR 45. cp 10/14 18:52 Order name: CBC with Diff; Complete Time: 19:54 cp 10/14 19:55 Interpretation: Normal except: RBC 3.85; HGB 11.9; HCT 35.2; LYM% 13.6; EOSINOPHIL % cp 5.3. 10/14 18:52 Order name: LFT's; Complete Time: 19:54 cp 10/14 18:52 Order name: Magnesium; Complete Time: 19:54 cp 10/14 18:52 Order name: NT PRO-BNP; Complete Time: 19:54 cp 10/14 18:52 Order name: PT-INR; Complete Time: 19:54 cp 10/14 18:52 Order name: Troponin (emerg Dept Use Only); Complete Time: 19:54 cp 10/14 18:52 Order name: XRAY Chest (1 view); Complete Time: 20:17 cp 10/14 19:23 Order name: US Extremity Venous W Compression Alexis cp 10/14 19:57 Order name: US Lower Extremity Arterial Bilateral cp 10/14 20:27 Order name: Urine Microscopic Only cp 10/14 21:38 Order name: Urine Dipstick--Ancillary (enter results) tt3 10/14 22:20 Order name: SARS-COV-2 RT PCR EDMS 10/14 18:52 Order name: EKG; Complete Time: 18:53 cp 10/14 18:52 Order name: Cardiac monitoring; Complete Time: 19:33 cp 10/14 18:52 Order name: EKG - Nurse/Tech; Complete Time: 19:45 cp 10/14 18:52 Order name: IV Saline Lock; Complete Time: 19:33 cp 10/14 18:52 Order name: Labs collected and sent; Complete Time: 19:33 cp 10/14 18:52 Order name: O2 Per Protocol; Complete Time: 19:33 cp 10/14 18:52 Order name: O2 Sat Monitoring; Complete Time: 19:33 cp 10/14 20:27 Order name: Urine Dipstick-Ancillary (obtain specimen); Complete Time: 21:38 cp EC:10 Rate is 57 beats/min. Rhythm is regular. OR interval is normal. QRS interval is normal. cp T waves are Inverted in leads aVR, V2. Interpreted by me. Reviewed by me. Administered Medications: 21:00 Drug: Lasix 40 mg Route: IVP; Site: right antecubital; ll2 22:00 Follow up: Response: No adverse reaction ll2 Disposition: 10/15 00:59 Co-signature as Attending Physician, Andriy Rios MD. rn Disposition: 10/14/20 20:39 Hospitalization ordered by Delfino Ma for Inpatient Admission. Preliminary diagnosis are Unspecified combined systolic (congestive) and diastolic (congestive) heart failure, Dyspnea, Orthopnea. - Bed requested for Telemetry/MedSurg (Inpatient). - Status is Inpatient Admission. ll2 - Condition is Stable. - Problem is an acute exacerbation. - Symptoms are unchanged. Signatures: Dispatcher [employer] EDMD Shabana Scruggs RN Marshal Stein MD MD cha Nieto, Roman, MD MD rn Page, Corey, PA PA cp Calli De Paz RN RN tw2 Vivian Vargas RN RN ll2 Corrections: (The following items were deleted from the chart) 10/14 21:33 19:05 CORONAVIRUS+MR.LAB.BRZ ordered. [facility] 22:38 20:39 Hospitalization Ordered by Delfino Ma DO for Inpatient Admission. Preliminary diagnosis is Unspecified combined systolic (congestive) and diastolic (congestive) heart failure; Dyspnea; Orthopnea. Bed requested for Telemetry/MedSurg (Inpatient). Status is Inpatient Admission. Condition is Stable. Problem is an acute exacerbation. Symptoms are unchanged. cp 23:36 22:38 10/14/2020 20:39 Hospitalization Ordered by Delfino Ma DO for Inpatient ll2 Admission. Preliminary diagnosis is Unspecified combined systolic (congestive) and diastolic (congestive) heart failure; Dyspnea; Orthopnea. Bed requested for Telemetry/MedSurg (Inpatient). Status is Inpatient Admission. Condition is Stable. Problem is an acute exacerbation. Symptoms are unchanged. mw
--- NOTE | 2020-10-14 20:40 | ER ---
Nurse's Notes [facility] Name: Jeb Lubin Sr Age: 80 yrs Sex: Male : 1940 Arrival Date: 10/14/2020 Time: 18:28 Bed 13 Private MD: Diagnosis: Unspecified combined systolic (congestive) and diastolic (congestive) heart failure;Dyspnea;Orthopnea Presentation: 10/14 18:32 Chief complaint: Patient states: i cant walk a block without being totally out of tw2 breath, my legs get numb from the knee down to the ankle if i walk a block and my feet hurt, i feel like i cant catch my breath, i prop up at night i cant lay flat. Coronavirus screen: cough unrelated to allergies, fatigue, shortness of breath, Client presents with at least one sign or symptom that may indicate coronavirus-19. Standard/surgical mask placed on the client. Provider contacted for isolation considerations. Ebola Screen: Patient denies travel to an Ebola-affected area in the 21 days before illness onset. Initial Sepsis Screen: Does the patient meet any 2 criteria? No. Patient's initial sepsis screen is negative. Does the patient have a suspected source of infection? No. Patient's initial sepsis screen is negative. Risk Assessment: Do you want to hurt yourself or someone else? Patient reports no desire to harm self or others. Onset of symptoms was October 14, 2020. 18:32 Method Of Arrival: Wheelchair tw2 18:32 Acuity: CECILIA 3 tw2 Triage Assessment: 18:38 General: Appears in no apparent distress. slender, well groomed, Behavior is calm, tw2 cooperative, appropriate for age. Pain: Denies pain. Respiratory: Reports shortness of breath at rest on exertion Onset: The symptoms/episode began/occurred Tuesday when I had cardiac therapy I had a real hard time getting on the steps and i just felt then i couldn't breathe at all, the patient has mild shortness of breath. Historical: - Allergies: 18:38 PENICILLINS; tw2 18:38 Xarelto; tw2 - Home Meds: 18:38 amlodipine 10 mg tab 1 tab once daily [Active]; atorvastatin 40 mg Oral tab nightly tw2 [Active]; clopidogrel 75 mg Oral tab 1 tab once daily [Active]; docusate sodium 100 mg Oral cap 1 cap 2 times per day [Active]; dorzolamide-timolol 22.3-6.8 mg/mL ophthalmic drop 1 drop 2 times per day [Active]; furosemide 40 mg Oral tab 1 tab once daily [Active]; galantamine 4 mg Oral tab 1 tab 2 times per day [Active]; losartan 100 mg Oral tab 1 tab once daily [Active]; melatonin 5 mg Oral tab nightly [Active]; memantine 10 mg Oral tab 1 tab 2 times per day [Active]; Ocuvite 202-18-5-150 ae-fgnn-eo-mg Oral cap daily [Active]; [place]-3 350 mg-235 mg- 90 mg-597 mg Oral cpDR twice a day [Active]; pantoprazole 40 mg Oral TbEC 1 tab once daily [Active]; coconut oil 1,000 mg oral cap twice a day [Active]; Vitamin D3 5,000 unit Oral tab twice a day [Active]; sotalol 10 mg Oral tab 0.5 tab 2 times per day [Active]; polyethylene glycol 3350 17 gram/dose Oral powd once daily [Active]; Osteo Bi-Flex 250-200 mg Oral tab twice a day [Active]; zinc sulfate 220 (50) mg Oral cap [Active]; - PMHx: 18:38 Atrial Fib; Diabetes - NIDDM; Hypertension; tw2 - PSHx: 18:38 CABG; heart valve replacemnet; tw2 - Immunization history:: Adult Immunizations. - Social history:: Smoking status: Patient/guardian denies using tobacco, the patient reports quitting approximately 20 years ago. Screenin:00 Abuse screen: Denies threats or abuse. Nutritional screening: No deficits noted. ll2 Tuberculosis screening: No symptoms or risk factors identified. Fall Risk None identified. Assessment: 20:14 Reassessment: ambulated pt around tang per erp request. O2 sats dropped to low 80's ERP ll2 notified. 21:00 Reassessment: Patient and/or family updated on plan of care and expected duration. Pain ll2 level reassessed. Patient is alert, oriented x 3, equal unlabored respirations, skin warm/dry/pink. 22:00 Cardiovascular: Rhythm is atrial fibrillation. ll2 22:00 Respiratory: Airway is patent Respiratory effort is even. ll2 22:55 Reassessment: Patient and/or family updated on plan of care and expected duration. Pain ll2 level reassessed. Patient is alert, oriented x 3, equal unlabored respirations, skin warm/dry/pink. report given to ISMA kelly. 22:55 Reassessment: ultrasound at bedside. ll2 Vital Signs: 18:32 BP 189 / 77; Pulse 60; Resp 19; Temp 97.8(TE); Pulse Ox 99% on R/A; Weight 68.04 kg; tw2 Height 5 ft. 4 in. (162.56 cm) (R); Pain 0/10; 19:00 BP 210 / 70; Pulse 48; Resp 16; Pulse Ox 100% on R/A; ll2 20:00 BP 177 / 64; Pulse 55; Resp 17; Pulse Ox 98% on R/A; ll2 21:00 BP 193 / 84; Pulse 57; Resp 18; Pulse Ox 99% on R/A; ll2 22:00 BP 202 / 72; Pulse 51; Resp 16; Pulse Ox 99% on R/A; ll2 18:32 Body Mass Index 25.75 (68.04 kg, 162.56 cm) tw2 ED Course: 18:28 Patient arrived in ED. ag3 18:34 Triage completed. tw2 18:40 Beatriz Person, ISMA is Primary Nurse. ca1 18:40 Arm band placed on. tw2 18:46 Marshal Ghosh PA is PHCP. cp 18:46 aMrshal Hill MD is Attending Physician. cp 19:16 Patient has correct armband on for positive identification. Placed in gown. Bed in low mh5 position. Call light in reach. Side rails up X2. Warm blanket given. Pillow given. licensed pharmacist on. Pulse ox on. NIBP on. 19:16 Initial lab(s) drawn, by me, sent to lab. Inserted saline lock: 20 gauge in right mh5 antecubital area, using aseptic technique. Blood collected. 19:17 EKG done, by ED staff, reviewed by Marshal SORIANO. 5 19:26 Andriy Rios MD is Attending Physician. cp 19:26 XRAY Chest (1 view) In Process Unspecified. EDMS 19:33 Vivian Vargas, ISMA is Primary Nurse. ll2 20:38 Delfino Ma DO is Hospitalizing Provider. cp 21:38 US Extremity Venous W Compression Alexis In Process Unspecified. EDMS 21:39 US Lower Extremity Arterial Bilateral In Process Unspecified. EDMS 23:35 No provider procedures requiring assistance completed. Patient admitted, IV remains in ll2 place. Administered Medications: 21:00 Drug: Lasix 40 mg Route: IVP; Site: right antecubital; ll2 22:00 Follow up: Response: No adverse reaction ll2 Outcome: 20:39 Decision to Hospitalize by Provider. cp 23:35 Admitted to Med/surg accompanied by tech, via wheelchair, Report called to ISMA kelly ll2 23:35 Condition: stable 23:35 Instructed on the need for admit. 23:36 Patient left the ED. ll2 Signatures: Dispatcher [employer] EDMS Marshal Ghosh PA PA cp Wise, Tara, ISMA RN tw2 Amanda Michelle [facility] Etta Reinoso 3 Beatriz Person RN RN ca1 Vivian Vargas RN RN ll2
[2020-10-14] MEDS ORDERED: FUROSEMIDE 40 MG/4 ML VIAL ONE (21:19)
[2020-10-14 21:53] LABS: Urine Bacteria <20 /HPF (NONE SEEN); Urine RBC <5 /HPF (NONE SEEN)
[2020-10-14 21:54] LABS: Urine Blood NEGATIVE (NEG); Urine Glucose NEGATIVE (NEG); Urine Protein NEGATIVE (NEG)
--- NOTE | 2020-10-14 22:13 | P.HP ---
Certification for Inpatient Patient admitted to: Inpatient With expected LOS: >2 Midnights Patient will require the following post-hospital care: None Practitioner: I am a practitioner with admitting privileges, knowledge of patient current condition, hospital course, and medical plan of care. Services: Services provided to patient in accordance with Admission requirements found in Title 42 Section 412.3 of the Code of Federal Regulations <MelissaAldair - Last Filed: 10/14/20 22:08> Patient admitted to: Observation <Delfino Ma - Last Filed: 10/15/20 13:13> Patient History Date of Service: 10/14/20 Primary Care Provider: Dr. Miller, Dr. Tam Reason for admission: Dyspnea History of Present Illness: 80-year-old male with history of chronic diastolic congestive heart failure, paroxysmal atrial fibrillation, diabetes mellitus type 2, CAD status p ost CABG, aortic valve replacement-bovine, dementia presents emergency department for shortness of breath. Patient reports that over the last few days he has becoming increasingly short of breath especially with exertion. Patient was evaluated in the emergency department, really not having a lot of pedal edema although when he ambulates his saturations were in the 70s to 80s. Patient saturating well at rest. Patient last echocardiogram on 10/18/2018 shows ejection fraction 68% without abnormalities of the aortic valve. Patient reports that he has been compliant with his for Lasix and fluid restrictions. Labs reveal mild renal insufficiency with creatinine 1.5, GFR 45 elevated BNP 1754. COVID test is pending. ED provider wishes to admit patient for further evaluation and management. - Past Medical/Surgical History Diabetic: No -: HTN -: High Cholesterol -: Vascular Dementia -: CABG -: Diabetes mellitus type 2 -: CAD -: Triple Bypass -: Aortic Valve Replacement-bovine Psychosocial/ Personal History: Patient currently lives at home alone - Family History Brother -: Heart disease, Other (see notes) Notes: [place] Father -: Heart disease Mother -: Heart disease - Social History Alcohol use: Yes CD- Drugs: No Caffeine use: No Place of Residence: Home <Aldair Torres - Last Filed: 10/14/20 22:08> Date of Service: 10/15/20 - Social History Smoking Status: Never smoker <Delfino Ma - Last Filed: 10/15/20 13:13> Allergies Penicillins Allergy (Verified 02/03/18 09:41) Hives/Rash rivaroxaban [From Xarelto] Adverse Reaction (Verified 10/17/18 13:41) GI BLEED Home Medications: Ascorbic Acid [Vitamin C with Mackenzie Hips] 1,000 mg PO DAILY 10/15/20 Atorvastatin Calcium [Lipitor] 40 mg PO BEDTIME 10/15/20 Cholecalciferol (Vitamin D3) [Vitamin D 5,000 IU Cap*] 5,000 unit PO BID 10/15/20 Clopidogrel Bisulfate [Plavix*] 75 mg PO DAILY 10/15/20 Furosemide [Lasix*] 40 mg PO BID 10/15/20 Galantamine HBr [Galantamine ER] 4 mg PO BID 10/15/20 Glucosam/Rojas-Msm1/C/Ghanshyam/Bosw [Osteo Bi-Flex Caplet] 1 tab PO BID 10/15/20 Losartan Potassium [Cozaar] 100 mg PO DAILY 10/15/20 Memantine HCl [Namenda*] 10 mg PO BID 10/15/20 [place]-3 Fatty Acids/Fish Oil [Fish Oil 1,000 mg Softgel] 2 cap PO BID 10/15/20 Pantoprazole [Protonix Tab*] 40 mg PO DAILY 10/15/20 Sotalol HCl [Betapace*] 40 mg PO BID 10/15/20 Vit A,C & E/Lutein/Minerals [Ocuvite Tablet] 1 tab PO DAILY 10/15/20 Zinc 50 mg PO DAILY 10/15/20 Review of Systems 10-point ROS is otherwise unremarkable Respiratory: Shortness of Breath, SOB with Excertion Cardiovascular: Orthopnea <Aldair Torres - Last Filed: 10/14/20 22:08> Physical Examination - Physical Exam General: Alert, In no apparent distress, Oriented x3 HEENT: Atraumatic, Normocephalic, PERRLA Neck: Supple Respiratory: Normal air movement, Crackles/rales (bibasilar crackles noted) Cardiovascular: No edema, Irregular heart rate/rhythm (Atrial fibrillation, rate controlled) Capillary refill: <2 Seconds Gastrointestinal: Normal bowel sounds, Soft and benign Musculoskeletal: No contractures, No erythema, No tenderness Integumentary: No significant lesion, No tenderness/swelling, No erythema Neurological: Normal speech, Normal strength at 5/5 x4 extr, Normal tone - Studies Laboratory Data (last 24 hrs) 10/14/20 19:13: PT 12.5, INR 1.06 10/14/20 19:13: WBC 9.9, Hgb 11.9 L, Hct 35.2 L, Plt Count 261 10/14/20 19:13: Sodium 138, Potassium 3.9, BUN 26 H, Creatinine 1.50 H, Glucose 105, Magnesium 2.2, Total Bilirubin 0.6, AST 25, ALT 28, Alkaline Phosphatase 113 <Aldair Torres - Last Filed: 10/14/20 22:08> - Studies Laboratory Data (last 24 hrs) 10/14/20 19:13: PT 12.5, INR 1.06 10/14/20 19:13: WBC 9.9, Hgb 11.9 L, Hct 35.2 L, Plt Count 261 10/14/20 19:13: Sodium 138, Potassium 3.9, BUN 26 H, Creatinine 1.50 H, Glucose 105, Magnesium 2.2, Total Bilirubin 0.6, AST 25, ALT 28, Alkaline Phosphatase 113 <Delfino Ma - Last Filed: 10/15/20 13:13> Assessment and Plan - Plan Assessment Acute on chronic diastolic congestive heart failure with dyspnea on exertion and hypoxia Paroxysmal atrial fibrillation with History of aortic valve replacement-bovine CAD S/P three-vessel CABG Diabetes mellitus type 2 Hypertension Vascular dementia Plan Acute on chronic diastolic congestive heart failure with dyspnea on exertion and hypoxia: Continue with IV diuresis, cardiology consult in place. Echocardiogram ordered. 1500 cc per day fluid restriction, daily weights. Appreciate further input from cardiology. Paroxysmal atrial fibrillation with History of aortic valve replacement-bovine: Obtain and continue home medications, patient unsure if he is on any anti coagulation therapy. Will need to verify. CAD S/P three-vessel CABG: Obtain and continue home medications Diabetes mellitus type 2: A.c. HS Accu-Cheks, sliding scale insulin therapy. Hypertension: Obtain and continue home medications as appropriate. Vascular dementia: Obtain and continue home medications as appropriate. Discharge Plan: Home Plan to discharge in: 48 Hours - Advance Directives Does patient have a Living Will: No Does patient have a Durable POA for Healthcare: No - Code Status/Comfort Care Code Status Assessed: Yes (Full code) Critical Care: No Time Spent Managing Pts Care (In Minutes): 55 <Aldair Torres - Last Filed: 10/14/20 22:08> - Plan Case discussed in detail with nurse practitioner. Agree with plan of care. Patient improved. Will discuss with cardiology about possible discharge today. <Delfino Ma - Last Filed: 10/15/20 13:13>
[2020-10-14] MEDS ORDERED: ACETAMINOPHEN 500 MG TAB PO PRN (23:09)
[2020-10-14] MEDS ORDERED: ONDANSETRON 4 MG/2 ML VIAL IV PRN (23:09)
[2020-10-14 23:32] VITALS: BMI 23.1
[2020-10-15 05:53] LABS: Absolute Lymphocytes (CBC) 1.3 K/uL (0.7-4.9); Basophils % 1.2 % (0-1.3); Hematocrit 35.2 % (39.6-49.0); MPV 7.5 fL (7.6-11.3); RBC Red Blood Cell Count 3.84 M/uL (4.33-5.43)
[2020-10-15 06:19] LABS: Magnesium 2.3 mg/dL (1.8-2.4); Potassium 3.5 mmol/L (3.5-5.1); Thyroid Stimulating Hormone 2.77 uIU/mL (0.360-3.740)
--- NOTE | 2020-10-15 06:59 | RAD REPORT ---
EXAM DESCRIPTION: US - Extrem Venous W Compress Alexis - 10/14/2020 9:38 pm CLINICAL HISTORY: PAIN Preliminary findings provided at the time of the study. COMPARISON: None. TECHNIQUE: Real-time sonographic evaluation of the bilateral lower extremity common femoral, superfi cial femoral, popliteal and posterior tibial veins was performed. FINDINGS: Normal compressibility, flow augmentation, phasic flow and spontaneous flow are identified in the left and right lower extremity common femoral, superficial femoral, popliteal and posterior t ibial veins. No intraluminal filling defects seen. IMPRESSION: No DVT in either lower extremity.
--- NOTE | 2020-10-15 08:00 | RAD REPORT ---
EXAM DESCRIPTION: US - Lower Extremity Arterial Bilat - 10/14/2020 9:38 pm CLINICAL HISTORY: PAINbilateral COMPARISON: None. TECHNIQUE: Doppler evaluation of the bilateral lower extremity arterial tree performed. Waveforms we re obtained along the length of each lower extremity. Visual inspection of the lower extremity arteri al tree performed. FINDINGS: No occlusion or focal flow restricting lesion identified. There is significant atheroscler otic change with calcifications along the morales of the bilateral arterial tree. Right lower extremity shows a monophasic waveform pattern from groin to ankle. Waveforms are dampened compared to what is typically seen. The left leg shows a biphasic waveform pattern in the common fem oral to popliteal arteries. Monophasic waveforms were seen in the dorsalis pedis and posterior tibial arteries on the left. Waveforms were also dampened in the left lower extremity. Velocity values are diminished over what is typically seen in the right leg and to a lesser degree the left leg. IMPRESSION: Significant bilateral lower extremity peripheral arterial disease is present, left great er than right, with no occlusion or dominant flow restricting lesion. The monophasic right and biphasic left proximal arterial waveform patterns suggest the presence of si gnificant aortoiliac disease.
[2020-10-15] MEDS ORDERED: MEMANTINE HCL 10 MG TABLET PO SCH (09:00)
[2020-10-15] MEDS ORDERED: DOCOSAHEXANOIC AC/EPA 1000 MG PO SCH (09:00)
[2020-10-15] MEDS ORDERED: ASCORBIC ACID 500 MG TABLET PO SCH (09:00)
[2020-10-15] MEDS ORDERED: HOME MED 1 EA UNK (Galantamine Hbr [Galantamine Er] 8 MG Cap24h.Pel) PO SCH (09:00)
[2020-10-15] MEDS ORDERED: ZINC SULFATE 220 MG CAP PO SCH (09:00)
[2020-10-15] MEDS ORDERED: SOTALOL HCL 80 MG TAB PO SCH (09:00)
[2020-10-15] MEDS ORDERED: ENOXAPARIN 40 MG/0.4 ML SQ SCH (09:00)
[2020-10-15] MEDS ORDERED: LOSARTAN POTASSIUM 50 MG TABLET PO SCH (09:00)
[2020-10-15] MEDS ORDERED: OCUVITE (VIT A,C & E/LUTEIN/MINERAL) TABLET PO SCH (09:00)
[2020-10-15] MEDS ORDERED: POTASSIUM 25 MEQ EFFERV TAB PO ONE (09:00)
[2020-10-15] MEDS ORDERED: CLOPIDOGREL 75 MG TABLET PO SCH (09:00)
[2020-10-15] MEDS ORDERED: VITAMIN D 5,000 UNIT CAP PO SCH (09:00)
[2020-10-15] MEDS ORDERED: PANTOPRAZOLE 40MG TABLET PO SCH (09:00)
[2020-10-15] MEDS ORDERED: GLUCOSAM/CHONDROI 500mg-400mg PO SCH (09:00)
[2020-10-15 09:19] VITALS: O2SAT 97
[2020-10-15] MEDS: FUROSEMIDE 40 MG/4 ML VIAL IV SCH ×2 (11:12→17:00)
--- NOTE | 2020-10-15 13:19 | P.DS ---
Admission Date: 10/14/20 Discharge Date: 10/15/20 Primary Care Provider: Dr. Yonatan Oquendo Disposition: ROUTINE DISCHARGE Discharge Condition: GOOD Reason for Admission: Dyspnea Consultations: Cardiology-Dr. Tam Procedures: Medical Problem List: Acute on chronic diastolic congestive heart failure with dyspnea on exertion and hypoxia Paroxysmal atrial fibrillation with History of aortic valve replacement-bovine CAD S/P three-vessel CABG Hypertension Vascular dementia Brief History of Present Illness: 80 yo CM presented with shortness of breath related to CHF. He was admitted for evaluation. Hospital Course: Patient presented with Acute on chronic diastolic congestive heart failure with dyspnea on exertion and hypoxia. Patient required IV diuresis. Cardiology was consulted and ECHO obtained. He has done well with treatment. No need for oxygen. He will continue with a 1500 cc per day fluid restriction and low-salt diet. He is to monitor his weight daily. At discharge patient will continue with Lasix 80 mg 1 pill twice daily for at least 3 days then go back to 40 mg 1 pill twice daily. He may occasionally increased his Lasix if with increased swelling or shortness of breath. Recommend follow up with cardiology in 1-2 weeks to follow up this hospitalization. Further adjustment in his medication can be done by cardiology or his PCP. Education on CHF provided. Patient with history of paroxysmally atrial fibrillation and aortic valve replacement-bovine, CAD with prior CABG 3 vessel, hypertension and vascular dementia. This appears stable this time. Patient will continue with his current medications. Follow up with cardiology and PCP to further address. Vital Signs/Physical Exam: Temp Pulse Resp BP Pulse Ox 98.3 F 58 16 170/60 H 97 10/15/20 08:00 10/15/20 11:12 10/15/20 08:00 10/15/20 11:12 10/15/20 08:00 General: Alert, In no apparent distress, Oriented x3, Cooperative HEENT: Atraumatic Neck: Supple Respiratory: Clear to auscultation bilaterally, Normal air movement Cardiovascular: Normal pulses, Regular rate/rhythm Musculoskeletal: No erythema, No tenderness, No warmth Integumentary: No tenderness/swelling Neurological: Normal speech, Normal strength at 5/5 x4 extr, Normal tone, Normal affect Laboratory Data at Discharge: WBC 8.1 K/uL (4.3-10.9) D 10/15/20 05:43 Hgb 11.7 g/dL (13.6-17.9) L 10/15/20 05:43 Hct 35.2 % (39.6-49.0) L 10/15/20 05:43 Plt Count 248 K/uL (152-406) 10/15/20 05:43 PT 12.5 SECONDS (9.5-12.5) 10/14/20 19:13 INR 1.06 10/14/20 19:13 Sodium 140 mmol/L (136-145) 10/15/20 05:43 Potassium 3.5 mmol/L (3.5-5.1) 10/15/20 05:43 BUN 26 mg/dL (7-18) H 10/15/20 05:43 Creatinine 1.40 mg/dL (0.55-1.3) H 10/15/20 05:43 Glucose 87 mg/dL (74-106) 10/15/20 05:43 Magnesium 2.3 mg/dL (1.8-2.4) 10/15/20 05:43 Total Bilirubin 0.6 mg/dL (0.2-1.0) 10/14/20 19:13 AST 25 U/L (15-37) 10/14/20 19:13 ALT 28 U/L (12-78) 10/14/20 19:13 Alkaline Phosphatase 113 U/L (45-117) 10/14/20 19:13 Home Medications: Ascorbic Acid [Vitamin C with Mackenzie Hips] 1,000 mg PO DAILY 10/15/20 Atorvastatin Calcium [Lipitor] 40 mg PO BEDTIME 10/15/20 Cholecalciferol (Vitamin D3) [Vitamin D 5,000 IU Cap*] 5,000 unit PO BID 10/15/20 Clopidogrel Bisulfate [Plavix*] 75 mg PO DAILY 10/15/20 Furosemide [Lasix*] 40 mg PO BID 10/15/20 Galantamine HBr [Galantamine ER] 4 mg PO BID 10/15/20 Glucosam/Rojas-Msm1/C/Ghanshyam/Bosw [Osteo Bi-Flex Caplet] 1 tab PO BID 10/15/20 Losartan Potassium [Cozaar] 100 mg PO DAILY 10/15/20 Memantine HCl [Namenda*] 10 mg PO BID 10/15/20 [place]-3 Fatty Acids/Fish Oil [Fish Oil 1,000 mg Softgel] 2 cap PO BID 10/15/20 Pantoprazole [Protonix Tab*] 40 mg PO DAILY 10/15/20 Sotalol HCl [Betapace*] 40 mg PO BID 10/15/20 Vit A,C & E/Lutein/Minerals [Ocuvite Tablet] 1 tab PO DAILY 10/15/20 Zinc 50 mg PO DAILY 10/15/20 Patient Discharge Instructions: Patient presented with Acute on chronic diastolic congestive heart failure with dyspnea on exertion and hypoxia. Patient required IV diuresis. Cardiology was consulted and ECHO obtained. He has done well with treatment. No need for oxygen. He will continue with a 1500 cc per day fluid restriction and low-salt diet. He is to monitor his weight daily. At discharge patient will continue with Lasix 80 mg 1 pill twice daily for at least 3 days then go back to 40 mg 1 pill twice daily. He may occasionally increased his Lasix if with increased swelling or shortness of breath. Recommend follow up with cardiology in 1-2 weeks to follow up this hospitalization. Further adjustment in his medication can be done by cardiology or his PCP. Education on CHF provided. Patient with history of paroxysmally atrial fibrillation and aortic valve replacement-bovine, CAD with prior CABG 3 vessel, hypertension and vascular dementia. This appears stable this time. Patient will continue with his current medications. Follow up with cardiology and PCP to further address. Diet: AHA Activity: Ad kiarra Followup: Ismael Miller MD [Primary Care Provider] - Time spent managing pt's care (in minutes): 55
--- NOTE | 2020-10-15 17:33 | EKG ---
Test Date: 2020-10-14 Test Time: 19:01:26 [employer] Pressing Machine Operator: ARTURO MEASUREMENT RESULTS: Intervals: Rate: 57 HI: 158 QRSD: 90 QT: 478 QTc: 465 [place]: P: 58 HI: 158 QRS: 30 T: 58 INTERPRETIVE STATEMENTS: Sinus bradycardia with sinus arrhythmia Septal infarct, age undetermined Abnormal ECG Compared to ECG 11/09/2019 09:24:49 Myocardial infarct finding now present Atrial premature complex(es) no longer present Prolonged QT interval no longer present Electronically Signed On 10-15-20 17:31:43 EGG BUYER by Kelechi Tam
--- NOTE | 2020-10-15 17:36 | RAD REPORT ---
EXAM DESCRIPTION: RAD - Chest Pa And Lat (2 Views) - 10/15/2020 5:25 pm CLINICAL HISTORY: follow up CHF Chest pain. COMPARISON: Chest Single View dated 10/14/2020; Chest Single View dated 11/09/2019; Chest Single View d ated 10/22/2019; Chest Single View dated 03/09/2019 FINDINGS: Small left pleural effusion is again seen, unchanged. Mild interstitial pulmonary edema ap pears stable. The heart is upper limit normal in size. Sternotomy wires present. IMPRESSION: Stable chest since 10/14/2020.
[2020-10-15] MEDS ORDERED: HYDRALAZINE HCL 20 MG/ML VIAL IV ONE (18:11)
[2020-10-15 18:30] VITALS: BP 188/84; TEMP 98
[2020-10-15] MEDS ORDERED: ATORVASTATIN 40 MG TAB PO SCH (21:00)
--- NOTE | 2020-10-16 08:46 | ECHO ---
HEIGHT: 5 ft 5 in WEIGHT: 139 lb 6.4 oz DATE OF STUDY: 10/15/[address]: Aldair Torres NP 2-DIMENSIONAL: YES M.MODE: YES DOPPLER: YES COLOR FLOW: YES TDS: PORTABLE: DEFINITY: BUBBLE STUDY: DIAGNOSIS: CONGESTIVE HEART FAILURE CARDIAC HISTORY: CATHERIZATION: SURGERY: YES PROSTHETIC VALVE: AORTIC VALVE REPLACEMENT PACEMAKER: MEASUREMENTS (cm) DIASTOLIC (NORMALS) SYSTOLIC (NORMALS) IVSd 1.1 (0.6-1.2) LA Diam 3.2 (1.9-4.0) LVEF 61% LVIDd 4.8 (3.5-5.7) LVIDs (2.0-3.5) %FS 33% LVPWd 1.0 (0.6-1.2) Ao Diam 2.9 (2.0-3.7) 2 DIMENSIONAL ASSESSMENT: RIGHT ATRIUM: NORMAL LEFT ATRIUM: NORMAL RIGHT VENTRICLE: NORMAL LEFT VENTRICLE: NORMAL TRICUSPID VALVE: NORMAL MITRAL VALVE: MITRAL ANNULAR CALCIFICATION PULMONIC VALVE: NORMAL AORTIC VALVE: SCLEROSIS PERICARDIAL EFFUSION: NONE AORTIC ROOT: NORMAL LEFT VENTRICULAR WALL MOTION: NORMAL DOPPLER/COLOR FLOW: NORMAL COMMENTS: MILD TRICUSPID REGURGITATION, MITRAL REGURGITATION. NORMAL LEFT VENTRICULAR SIZE AND FUNCTION. MITRAL ANNULAR CALCIFICATION. AORTIC SCLEROSIS, NO STENOSIS. TECHNOLOGIST: JOLIE GODOY
--- NOTE | 2020-10-17 13:41 | CON ---
Date of Consultation: 10/15/[address] Ma on 10/14/2020. I saw the patient on 10/15/2020. Reason For Consultation: Shortness of breath. History Of Present Illness: Mr. Lubin is a patient who is very well known to me from office visits a nd previous hospital admissions. He has a very extensive past medical history including history of p aroxysmal atrial fibrillation, diabetes, hypertension, bioprosthetic heart valve replacement, coronar y artery bypass surgery. He came in mostly with shortness of breath, PND, orthopnea. No pedal edema . Denied any palpitation, syncope. Denies any chest pain, nausea, vomiting, diaphoresis. Denied an y fever or chills. His shortness of breath is mostly when he lays down and when he does some minimal activities. He is already ruled out for [place]. Past Medical History: As stated above. Allergies: PENICILLIN AND XARELTO. Medications: At home include amlodipine, atorvastatin, Plavix, furosemide once a day, losartan, humble ntine, fish oil, Protonix. Review of Systems: Negative. Social History: Negative. Family History: Negative. Physical Examination: Vital Signs: Stable although when he came in was 189/77 for blood pressure, now is 160/70. He weigh ed 139 pounds. Heart rate was 56. He was afebrile. Breathing rate is 18. He was in sinus rhythm. HEENT: Negative. Neck: Supple without any bruit, lymphadenopathy, JVD, or thyromegaly. Chest: Was actually clear to auscultation and percussion. Cardiac: Exam revealed a regular rhythm and rate. No murmurs, gallops, or rubs. Abdomen: Benign. Extremities: Revealed no clubbing, cyanosis, or edema. Diagnostic Data: Chest x-ray showed a small pleural effusion. EKG was unremarkable. Creatinine was 1.40. His white count was normal. His hemoglobin was 11.1. His troponin was negative. His BNP wa s 1754. He had an extremity venous Doppler which was normal in all other extremities. EKG was done before I saw the patient showed an ejection fraction of 61%, mitral anulus calcification, aortic scle rosis without any stenosis. Impression And Plan: I believe Mr. Lubin probably has [id number] diastolic congestive heart fa ilure secondary to chronic coronary artery disease and valvular heart disease. He has had a bioprost hetic valve replacement in the past. This seems to be functioning well by echo. He has had a recent stress test in my office. I believe that were negative. Nevertheless, I would continue his present regimen, increased his Lasix to twice a day, consider starting low-dose beta sue, although we wi ll have to watch his heart rate very carefully. He is already on an MERT inhibitor. He is already on furosemide, aspirin, and Plavix. I am comfortable with him going home and I will see him in the off ice as an outpatient. If his present regimen with Lasix and losartan and maybe low-dose beta sue down the road does not improve him, I think he should have a Pulmonary consultation. JENN/REBEKAH Voice ID: [id number] Report ID: [id number]
== END 2020-10-15 20:33 | disposition home or self-care (01) ==
LOC: ER 18:26 → ERHOLD 21:42 → INTOOBSV 21:42 → 2ND 22:56
PROVIDERS: ADMIT Family Medicine; ATTEND Family Medicine
DX: I11.0 Hypertensive heart disease with heart failure (principal); I50.33 Acute on chronic diastolic (congestive) heart failure; R09.02 Hypoxemia; I48.0 Paroxysmal atrial fibrillation; Z20.822 Contact with and (suspected) exposure to COVID-19; Z95.3 Presence of xenogenic heart valve; I25.10 Atherosclerotic heart disease of native coronary artery without angina pectoris; Z95.1 Presence of aortocoronary bypass graft; F01.50 Vascular dementia, unspecified severity, without behavioral disturbance, psychotic disturbance, mood disturbance, and anxiety; E78.00 Pure hypercholesterolemia, unspecified; E11.9 Type 2 diabetes mellitus without complications; Z87.891 Personal history of nicotine dependence; R94.31 Abnormal electrocardiogram [ECG] [EKG]
CPT/HCPCS: 93005; 93306; 85025 ×2; 80048 ×2; 36415; 83735 ×2; 85610; 80076; 84443; 84484; 84439; 83880; 71045; 71046; 93925; 93970; 96374; 99285; U0003; J0360; J1940 ×2; J1650; G0378 ×2; 81003; 81015

== ENCOUNTER 2021-02-24 10:06 | Day surgery (SDC) | payer OTHER ==
[2021-02-20 12:23] LABS: Potassium 3.8 mmol/L (3.5-5.1)
[2021-02-20 12:34] LABS: Absolute Lymphocytes (CBC) 1.8 K/uL (0.7-4.9); Hematocrit 39.4 % (39.6-49.0); Lymphocytes % 16.9 % (15.3-44.8); MPV 7.9 fL (7.6-11.3); RBC Red Blood Cell Count 4.16 M/uL (4.33-5.43)
--- NOTE | 2021-02-20 13:14 | RAD REPORT ---
EXAM DESCRIPTION: Gudelia Gates And Joyce (2 Views)02/20/2021 12:37 pm CLINICAL HISTORY: Preop for genitourinary surgery COMPARISON: October 2020 FINDINGS: The opacification of the left lower hemithorax is unchanged probably combination of pleura l and parenchymal scarring. The lungs appear clear of acute infiltrate. The heart is mildly to moderately enlarged enlarged. Postsurgical changes involve the chest. IMPRESSION: No acute abnormalities displayed
[2021-02-20 13:52] LABS: Blood Morphology Comment NOT SEEN (NOT SEEN); Platelet Estimate ADEQ; White Blood Cell Scan OK (OK)
[~2021-02-24 10:06] MED LIST: CLINDAMYCIN INJ 600 MG in NA CHLORIDE 0.9% 50 ML IV ONE; Gentamicin Inj 140 MG in NA CHLORIDE 0.9% 100 ML IV ONE
[2021-02-24] MEDS ORDERED: Ringers Lactate 1,000 ML IV ONE (11:03)
[2021-02-24] MEDS ORDERED: propofoL 200 MG/20 ML VIAL IV ONE (12:10)
[2021-02-24] MEDS ORDERED: FENTANYL CITR 100 MCG/2 ML ONE (12:10)
[2021-02-24] MEDS ORDERED: LIDOCAINE 1% MPF 5 ML VIAL ONE (12:10)
[2021-02-24] MEDS ORDERED: KETOROLAC 30 MG/ML INJ ONE (12:41)
[2021-02-24] MEDS ORDERED: NS 0.9% VIAL 10 ML ONE (13:09)
[2021-02-24] MEDS ORDERED: ONDANSETRON 4 MG/2 ML VIAL ONE (13:09)
[2021-02-24] MEDS ORDERED: EPHEDRINE SULF 50 MG/ML VIAL ONE (13:09)
--- NOTE | 2021-02-24 13:11 | RAD REPORT ---
EXAM DESCRIPTION: RAD - Urethrocystogrphy Retrograde - 02/24/2021 12:59 pm CLINICAL HISTORY: ICD N 20.0 FINDINGS: Fourteen fluoroscopic spot images obtained. Fluoroscopy time 0.3 minutes Both ureters cannulated and contrast administered. Examination was performed by Dr Turner Please refer to the performing physician's report for additional findings
[2021-02-24] MEDS: MORPHINE 4 MG/ML SYR ONE ×2 (13:31→13:47)
[2021-02-24] MEDS ORDERED: HYDROCODONE/APAP 5/325 MG TAB PO PRN (13:51)
[2021-02-24] MEDS ORDERED: PHENAZOPYRIDINE 100MG TAB PO ONE (13:51)
[2021-02-24 16:52] VITALS: BP 150/81; TEMP 97.3; O2SAT 94
--- NOTE | 2021-02-24 21:35 | OP ---
Surgeon: CAITY GARCIA Preoperative Diagnosis: Abnormal urinary/voided cytology. Postoperative Diagnosis: Abnormal urinary/voided cytology. Principle Procedures: 1. Cystoscopy. 2. Bilateral retrograde pyelographies. 3. Bilateral ureteral wash/barbotage cytologies. 4. Random bladder biopsies and fulguration. 5. Prostatic urethral biopsies. Date of Procedure: 02/24/21 Indication For Procedure: Mr. Lubin presented to the Urology Clinic with a history of hematuria and underwent cystoscopic evaluation as well as a renal ultrasound ordered by his primary care physician prior to the cystoscopic evaluation. No bladder lesion was seen cystoscopically, and he had no renal masses or hydronephrosis observed on ultrasound. A voided cytology was sent to complete the evaluation and minimize the need for IV contrast if possible, and returned suspicious for high-grade urothelial carcinoma. As such, he was counseled on the potential for flat lesions not observable cystoscopically or within the upper tracts that have yet to be evaluated with a contrast study. Procedure In Detail: The patient was consented in the preoperative holding area before being transferred to the operative suite where general anesthesia was induced. He was given antimicrobial prophylaxis and pneumo boots for DVT prophylaxis. He was placed supine on the operative table and then in the lithotomy position, padded and secured to the table appropriately. His genitalia were prepped using Hibiclens and he was draped in standard fashion. The case was begun using a 22-Cymro rigid cystoscope to traverse the urethra and into the bladder with ease. Again, no mucosal lesions of concern were noted within the entirety of the distal urethra. Within the prostatic urethra, no suspicious papillary mucosal lesions were noted as well. There was a small median lobe and minimal lateral lobar hypertrophy. Within the bladder, no papillary mucosal lesions were noted. The ureteral orifices were orthotopic in location. As such, I cannulated the right ureteral orifice first and performed a retrograde pyelogram. Right retrograde pyelography: Using a 70:30 mixture of Omnipaque and saline, contrast was injected via the 5- Cymro ureteral access catheter and did propagate up a relatively nondilated system into the renal pelvis where it delineated all calices appropriately and without evidence of a filling defect. There were no filling defects along the entirety of the course of the ureter. The calices were sharp and without caliectasis. There was no sign of pelviectasis. As such, I removed the 5- Cymro ureteral access catheter and turned my attention to the left side where I again performed retrograde pyelography there. Left retrograde pyelography: Using that similar 70:30 mixture of Omnipaque and saline, I injected contrast via the lumen of the 5-Cymro ureteral access catheter and did watch the contrast propagate up a nondilated distal into the mid and proximal left ureter before entering a nondilated renal pelvis with sharp calices. Of note, on the left side, there was only a bipartite system without the traditional 3 infundibulopelvic junctions and calices noted. There was no evidence of a blunted or excluded calyx as the renal pelvis was completely smooth otherwise and without sign of filling defect. As a result, with no filling defects noted in either upper tract, I placed a 5-Cymro ureteral access catheter into the right distal ureter and instilled 10 mL of saline before collecting the barbotage fluid for cytologic analysis as right ureteral wash/barbotage cytology. Once several mL had been collected, I then discarded that 5-Cymro ureteral access catheter and again using another 5-Cymro ureteral access catheter, injected 10 mL bolus of saline into the left distal ureter and again collected the fluid that emanated from within the left collecting system as left ureteral wash/barbotage cytology. Once the specimens were collected and sent for pathologic analysis, I then turned my attention to the bladder. Standard random bladder biopsies were taken from the trigone region, the posterior region of the bladder, the dome, the left and right lateral morales of the bladder. I then took samples from the prostatic urethral lumen, mostly sampling the area of the median bar and elevated median lobe. This was sent for pathologic analysis as prostatic urethral biopsy. I then employed the Bugbee electrode at a cautery setting of 30 and fulgurated each of the biopsy sites. The bladder was then decompressed and any oozing was also fulgurated. When the entirety of the biopsy sites was completely hemostatic, I then decompressed his bladder and observed for any bleeding. When no additional bleeding was noted, I refilled his bladder and placed a 20-Cymro urethral Hood catheter with ease with approximately 12 mL placed in the balloon. The catheter was then connected to a floor bag and the patient was taken out of the lithotomy position. He was then awakened from general anesthesia, transferred to a stretcher, and then transferred to the recovery room in good condition. Complications: None. Discharge Disposition: He should follow up in the Urology Clinic in about 2 weeks' time to discuss the results of the pathology from the each of the biopsies as well as the ureteral wash cytologic specimens. He can reasonably follow up in the Urology Clinic to have the urethral Hood catheter removed with nurse practitionerZuleika on or Tuesday of this week. LEIGHTON/REBEKAH Voice ID: [id number] Report ID: [id number] RENETTA
== END 2021-02-24 15:20 | disposition home or self-care (01) ==
LOC: OR 10:06
PROVIDERS: ATTEND Urology
PROC: 0VB08ZX Excision of Prostate, Via Natural or Artificial Opening Endoscopic, Diagnostic (ICD-10-PCS; 2021-02-24)
PROC: 0TBB8ZX Excision of Bladder, Via Natural or Artificial Opening Endoscopic, Diagnostic (ICD-10-PCS; principal; 2021-02-24 12:00)
DX: N30.80 Other cystitis without hematuria (principal); R82.90 Unspecified abnormal findings in urine; E78.5 Hyperlipidemia, unspecified; Z95.1 Presence of aortocoronary bypass graft; Z20.822 Contact with and (suspected) exposure to COVID-19
CPT/HCPCS: 87088; 85025; 87086; 80048; 36415; 88108; 88305 ×2; 71046; 74450; 51610; 52204; 55899; U0003; J2704; J1580; J3010; J7120; J2405

== ENCOUNTER 2021-03-17 11:04 | Day surgery (SDC) | payer OTHER ==
[~2021-03-17 11:04] MED LIST changes: -Gentamicin Inj 140 MG in NA CHLORIDE 0.9% 100 ML IV ONE; +Gentamicin Inj 160 MG in NA CHLORIDE 0.9% 100 ML IV ONE
[2021-03-17] MEDS ORDERED: Ringers Lactate 1,000 ML IV ONE (12:04)
[2021-03-17] MEDS: HYDRALAZINE HCL 20 MG/ML VIAL ONE ×3 (12:50→15:20)
[2021-03-17] MEDS ORDERED: FENTANYL CITR 100 MCG/2 ML ONE (13:34)
[2021-03-17] MEDS ORDERED: propofoL 200 MG/20 ML VIAL IV ONE (13:34)
[2021-03-17] MEDS ORDERED: MIDAZOLAM HCL 2 MG/2 ML INJ ONE (13:34)
[2021-03-17] MEDS ORDERED: LIDOCAINE 1% MPF 5 ML VIAL ONE (13:35)
[2021-03-17] MEDS ORDERED: ONDANSETRON 4 MG/2 ML VIAL ONE (13:35)
[2021-03-17] MEDS ORDERED: EPHEDRINE SULF 50 MG/ML VIAL ONE (13:48)
--- NOTE | 2021-03-17 14:42 | RAD REPORT ---
EXAM DESCRIPTION: RAD - Urography Retrograde - 03/17/2021 2:32 pm CLINICAL HISTORY: ICD N 20.0 FINDINGS: 27 fluoroscopic spot images obtained. Fluoroscopy time 1.0 minutes Right ureter was cannulated and contrast administered. Subsequently an ureteral stent was placed. Exa mination was performed by Dr Turner
[2021-03-17] MEDS ORDERED: PHENAZOPYRIDINE 100MG TAB PO ONE ×2 (15:16→17:36)
[2021-03-17] MEDS ORDERED: HYDROCODONE/APAP 5/325 MG TAB PO PRN (15:16)
[2021-03-17 15:21] VITALS: O2SAT 100
--- NOTE | 2021-03-17 15:47 | OP ---
Date of Procedure: 03/17/2021 Surgeon: CAITY GARCIA Preoperative Diagnoses: 1.Abnormal urinary cytology. 2.Abnormal or atypical right upper tract cytology. 3.Status post cystoscopy with bladder biopsies and prostatic urethral biopsies with selective bilate ral renal/ureteral cytologies. Postoperative Diagnoses: 1.Abnormal urinary cytology. 2.Abnormal or atypical right upper tract cytology. 3.Status post cystoscopy with bladder biopsies and prostatic urethral biopsies with selective bilate ral renal/ureteral cytologies. 4.Erythematous bladder lesions. Principle Procedures: 1.Cystoscopy with bladder biopsies and fulguration. 2.Right ureteroscopy with pyeloscopy and right ureteral stent placement. Indication For Procedure: Mr. Lubin is an 80-year-old gentleman, who presented to the Urology Clinic with gross hematuria. He underwent cystoscopic evaluation as an outpatient with no visible bladder or prostatic urethral lesions noted, but his cytology voided was suspicious for urothelial carcinoma. As a result, he underwent operative evaluation including cystoscopy with random bladder biopsies, a s no lesions were seen within the bladder, prostatic urethral biopsies, and bilateral renal and urete ral upper tract cytologies. The biopsies all returned benign with no evidence of malignancy, but the right upper tract cytology returned atypical, though the left returned completely normal. As a resu lt, the patient was counseled and recommended for definitive evaluation of the right upper tract with ureteroscopy and pyeloscopy. In the interim, his daughter has informed us that he had some continue d intermittent gross hematuria furthering the need for this evaluation. Procedure In Detail: The patient was consented in the preoperative holding area before being transfe rred to the operative suite where general anesthesia was induced. He was given clindamycin and 160 m g of gentamicin IV antimicrobial prophylaxis, and pneumo boots were provided for DVT prophylaxis. He was placed in the lithotomy position, padded and secured to the table appropriately. His genitalia were prepped using Hibiclens and he was draped in standard fashion. The case was begun using a 22-Fr ench rigid cystoscope to traverse the urethra and into the bladder with ease. Again, the urethra was surveyed without any papillary or concerning erythematous mucosal lesions. The prostatic urethra re vealed the evidence of the prior prostatic urethral biopsies, but no papillary tumors were noted with in the prostatic urethra. The bladder was then surveyed, and the ureteral orifices were again orthot opic in location within the trigone. The prior biopsy sites were visible with some fibrinous scab ov er them without any evidence of active bleeding. However, in the dome to the left, there was a patch of erythematous mucosa occupying an approximately 1-2 cm area. This was not previously observed and could have been from catheter trauma, but given his recurrent gross hematuria, I then switched the s olution to sterile water as irrigation and took biopsies of that site, which were sent for pathologic analysis. The area was then fulgurated using a Bugbee electrode at a cautery setting of 30. I then turned my attention to the right ureteral orifice, which was cannulated using a 5-Czech ureteral ac cess catheter. A retrograde pyelogram was then performed. Right retrograde pyelography: Using a 70:30 mixture of Omnipaque and saline, contrast was injected via the 5-Czech ureteral access catheter and did propagate up a nondilated ureter into a normal collecting system without any eviden ce of pelvocaliectasis. As such, I passed the Sensor wire up the 5-Czech ureteral access catheter a nd observed coil within the upper pole calyx of the right kidney. I then passed a dual-lumen cathete r over the Sensor wire after I removed the 5-Czech ureteral access catheter, and I confirmed the int raluminal location of the catheter. A second Bentson guidewire was then placed over the dual-lumen c atheter into the upper pole calyx as well alongside the indwelling safety wire. Attempts to advance the dual-lumen catheter beyond the mid distal portion of the ureter at the pelvic inlet were thwarted due to an area of ureteral spasm or stenosis. As a result, I leaving both wires in place removed th e dual-lumen catheter and performed direct vision semi-rigid ureteroscopy into the distal ureter. I was able to navigate the semi-rigid ureteroscope to the mid proximal ureter beyond the point of spasm prohibiting passage of the dual-lumen catheter. However, I was not able to navigate beyond that due to the system not being adequately dilated previously with a stent. As a result, because of the [facility] area of spasm that would prohibit the passage of a flexible ureteroscope, I placed a short uretera l access sheath over the Bentson guidewire, but again it could not be advanced beyond the pelvic brim at its obstructing point within the pelvic inlet. Attempts to pass the flexible ureteroscope over t he wire again would not pass beyond that point of spasmodic obstruction. As a result, I removed the ureteral access sheath and again passed the dual-lumen catheter after having removed the Bentson guid ewire previously in an effort to try to navigate the ureteroscope up the ureter beyond the point of o bstruction using pressurized irrigation, which failed. With the dual-lumen catheter reinserted, I ag ain passed a Bentson guidewire into the upper pole of the kidney, but at this time I was able to kathrin gate the dual-lumen catheter all the way to the UPJ. As a result, since I was now able to navigate b eyond the point of ureteral spasm within the mid distal ureter, I allowed the ureteral access sheath to remain in place for about 1-2 minutes to dilate the system and then I removed the dual-lumen hyun ter and at this time was successfully able to navigate the flexible ureteroscope over the Bentson all dewire into the upper pole calyx. Right pyeloscopy and ureteroscopy. Then, I used the flexible ureteroscope to survey each of the homa carlos and the entirety of the renal pelvis for any evidence of tumor. Within the upper pole calyx, the re was some mild mucosal erythema, which was likely subtle trauma from passage of the guide wires whi ch were coiled there fluoroscopically and observed visually, but no papillary tumors were noted. Wit hin the other calices of the kidney which were all confirmed to have been visualized fluoroscopically comparing to the retrograde pyelogram study previously performed, no papillary tumors were noted in any of the calices or within the renal pelvis. As a result, I surveyed down the UPJ into the proxima l mid and ultimately distal ureter where no additional lesions were noted and no papillary tumors. A s a result, a flexible ureteroscopy was completed and the scope was removed. I then back-loaded the cystoscope over the indwelling safety wire and passed a 6-Czech by 24 cm double-J ureteral stent wit h a coil observed fluoroscopically within the upper pole and one cystoscopically formed within the bl adder. The bladder was then decompressed of fluid and urine, and the prior biopsy site was again young veyed. With no evidence of bleeding at the biopsy site, the bladder was decompressed and the rigid c ystoscope was removed. The patient was then taken out of the lithotomy position, awakened from gener al anesthesia, transferred to a stretcher, and then transferred to the recovery room in good conditio n. Complications: None. Discharge Disposition: We will ask the patient and his daughter to follow up in about 2 weeks or so to discuss the pathology of the most recent bladder biopsies and confirm absence of malignancy. Sinc e no tumors were noted within the upper tract and no tumors were noted within the bladder or prostati c urethral otherwise or seen within the cytology on the left upper tract, we will conclude this evalu ation of his gross hematuria and atypical cytology. I explained to his daughter that as long as the biopsies return unremarkable, the source of the blood in the urine was very likely the prostate in a man of his age. LEIGHTON/REBEKAH Voice ID: [id number] Report ID: [id number]
[2021-03-17 17:24] VITALS: BP 130/68; TEMP 98
== END 2021-03-17 18:05 | disposition home or self-care (01) ==
LOC: OR 11:04
PROVIDERS: ATTEND Urology
PROC: 0T768DZ Dilation of Right Ureter with Intraluminal Device, Via Natural or Artificial Opening Endoscopic (ICD-10-PCS; 2021-03-17)
PROC: 0TBB8ZX Excision of Bladder, Via Natural or Artificial Opening Endoscopic, Diagnostic (ICD-10-PCS; principal; 2021-03-17 13:00)
DX: R31.0 Gross hematuria (principal); R82.89 Other abnormal findings on cytological and histological examination of urine; Z20.822 Contact with and (suspected) exposure to COVID-19
CPT/HCPCS: 52204; 52332; 52351; 87088; 87086; 88305; 74420; U0003; J0360; J2704; J1580; J3010; J7120; J2405; J2250

== ENCOUNTER 2021-08-28 10:41 | Inpatient (IN) | payer OTHER ==
--- OUTSIDE RECORDS SUMMARY | 2021-08-28 10:46 | XMS REPORT | Continuity of Care Document ---
:1940 Author Organization [facility] Address [address] [place] [address] Care Team Providers Name Role Phone CIVUNIGUNTA Attending Clinician Unavailable CIVUNIGUNTA Admitting Clinician Unavailable Problems This patient has no known problems. Allergies, Adverse Reactions, Alerts This patient has no known allergies or adverse reactions. Medications This patient has no known medications. Procedures This patient has no known procedures. Results Test Description Test Time Test Comments Results Result [facility] e Comments TISSUE EXAM 2018-10-04 Surgical Pathology 14:19:00 Report Case: [id number] Authorizing Provider: Jhonathan Sharma MD Collected: 09/25/2018 1808 Ordering Location: [address] Received: 09/26/2018 0927 Service Pathologist: Haris Jeter MD Specimen: Plaque, arterial plaque ARTERY, LEFT FEMORAL, ENDARTERECTOMY:CALCIFI C ATHEROSCLEROTIC PLAQUE Signing Pathologist Direct Phone Line: [phone] ally signed by Haris Jeter MD on 10/04/2018 at 2:19 [id number]; [id number] femoral artery plaqueArterial plaqueThe specimen is received in saline labeled with the patient's information labeled "arterial plaque" and consists of previously opened calcified segment of tissue measuring 2.5 cm in length x 0.5 cm in circumference. Hearing Stenographer sections are submitted A1 for decalcification. CG/pl Performed POCT-GLUCOSE METER 2018-09-28 13:44:00 Test Item Value Reference Range Interpretation Comme nts POC-GLUCOSE METER (BERxAnte) (test 326 mg/dL 70-110 H TESTED AT [facility] [address] code = 1538) [facility] 7703 0 POCT-GLUCOSE [id number] 11:32:00 Test Item Value Reference Range Interpretation Comments POC-GLUCOSE METER 150 mg/dL 70-110 H TESTED AT [facility] 6720 (BEAKER) (test code = [place] 1538) [id number] 04:26:00 Test Item Value Reference Range Interpretation Comments MAGNESIUM (BEAKER) (test code = 1.6 mg/dL 1.6-2.6 627) BASIC METABOLIC [id number] 04:26:00 Test Item Value Reference Range Interpretation [...] PATIEN TS. CBC W/PLT COUNT & AUTO [id number] 04:09:00 Test Item Value Reference Range Interpretation [...] 0-1 PERCENT (BEAKER) (test code = 2801) [id number] 03:49:00 Test Item Value Reference Range Interpretation Comments MAGNESIUM (BEAKER) (test code = 1.7 mg/dL 1.6-2.6 627) BASIC METABOLIC [id number] 03:49:00 Test Item Value Reference Range Interpretation [...] PATIEN TS. CBC W/PLT COUNT & AUTO [id number] 03:32:00 Test Item Value Reference Range Interpretation [...] 0-1 PERCENT (BEAKER) (test code = 2801) [id number] 10:17:00 Test Item Value Reference Range Interpretation Comments MAGNESIUM (BEAKER) (test code = 1.6 mg/dL 1.6-2.6 627) BASIC METABOLIC [id number] 10:17:00 Test Item Value Reference Range Interpretation [...] PATIEN TS. CBC W/PLT COUNT & AUTO [id number] 03:47:00 Test Item Value Reference Range Interpretation [...] 0-1 PERCENT (BEAKER) (test code = 2801) [id number] 17:44:00 Test Item Value Reference Range Interpretation Comments ACTIVATED CLOTTING TIME 131 sec TEST ED AT [facility] 67 (BEAKER) (test code = [place] [facility] 441) [address] BLOOD GAS, [id number] 17:15:00 Test Item Value Reference Range Interpretation [...] code = 1819) 30.0 % SODIUM NA-STAT [id number] 17:15:00 Test Item Value Reference Range Interpretation Comments SODIUM (BEAKER) (test code = 381) 132 meq/L 135-148 L HGB/HCT (H&H) - STAT [id number] 17:15:00 Test Item Value Reference Range Interpretation Comments HEMOGLOBIN (BEAKER) (test code = 11.2 g/dL 13.0-16.8 L 410) HEMATOCRIT (BEAKER) (test code = 33.0 % 40.0-50.0 L 411) GLUCOSE-STAT [id number] 17:14:00 Test Item Value Reference Range Interpretation Comments GLUCOSE RANDOM (BEAKER) (test code 104 mg/dL 70-110 = 652) POTASSIUM-STAT [id number] 17:14:00 Test Item Value Reference Range Interpretation Comments POTASSIUM (BEAKER) (test code = 4.1 meq/L 3.6-5.5 379) [id number] 17:11:00 Test Item Value Reference Range Interpretation Comments ACTIVATED CLOTTING TIME 268 sec TEST ED AT [facility] 6720 (BEAKER) (test code = [place] [facility] 441) [address] [id number] 16:12:00 Test Item Value Reference Range Interpretation Comments ACTIVATED CLOTTING TIME 257 sec TEST ED AT [facility] 6720 (BEAKER) (test code = [place] 441) [address] BASIC METABOLIC [id number] 07:04:00 Test Item Value Reference Range Interpretation [...] code = 413) URINALYSIS W/ REFLEX URINE [id number] 13:29:00 Test Item Value Reference Range Interpretation [...] SOURCE(BEAKER) (test code = 2795) BASIC METABOLIC [id number] 06:55:00 Test Item Value Reference Range Interpretation [...] 0-0 (BEAKER) (test code = 413) POCT-GLUCOSE [id number] 18:09:00 Test Item Value Reference Range Interpretation Comments POC-GLUCOSE METER 99 mg/dL 70-110 TESTED AT [facility] 6720 (BEAKER) (test code = [place] [address] 1538) POCT-GLUCOSE [id number] 13:47:00 Test Item Value Reference Range Interpretation Comments POC-GLUCOSE METER 144 mg/dL 70-110 H TESTED AT [facility] 6720 (BEAKER) (test code = [place] 1538) [address] U/S, [id number] 11:20:00Laterality?->Left Reason for exam:->left sided pleural effusion [...] Thoracentesis is therefore not performed. Signed: Reyes Guardadoeport Verified Date/Time: 09/23/2018 11:20:35 Reading Location: [address] Ortho Consult Reading Room PROTHROMBIN [id number] 05:40:00 Test Item Value Reference Range Interpretation Comments PROTIME (BEAKER) (test code = 14.7 seconds 11.7-14.7 759) INR (BEAKER) (test code = 370) 1.2 <=5.9 RECOMMENDED COUMADIN/WARFARIN INR THERAPY RANGESSTANDARD DOSE: 2.0 - 3.0 Includes: PROPHYLAXIS forvenous thrombosis, systemic embolization; TREATMENT for venous thrombosis and/or pulmonary embolus.HIGH RISK: Target INR is 2.5-3.5 for patients with mechanical heart valves.[id number] 05:40:00 Test Item Value Reference Range Interpretation Comments PARTIAL THROMBOPLASTIN TIME 31.6 seconds 22.5-36.0 (BEAKER) (test code = 760) [id number] 05:21:00 Test Item Value Reference Range Interpretation Comments MAGNESIUM (BEAKER) (test code = 1.6 mg/dL 1.6-2.6 627) BASIC METABOLIC [id number] 05:21:00 Test Item Value Reference Range Interpretation [...] S NOT APPLICABLE FOR DIALYSIS PATIEN TS. [id number] 05:20:00 Test Item Value Reference Range Interpretation Comments MAGNESIUM (BEAKER) (test code = 1.5 mg/dL 1.6-2.6 L 627) BASIC METABOLIC [id number] 05:20:00 Test Item Value Reference Range Interpretation [...] PATIEN TS. CBC W/PLT COUNT & AUTO [id number] 05:02:00 Test Item Value Reference Range Interpretation [...] 0-0 (BEAKER) (test code = 413) POCT-GLUCOSE [id number] 21:35:00 Test Item Value Reference Range Interpretation Comments POC-GLUCOSE METER 133 mg/dL 70-110 H TESTED AT [facility] 6720 (BEAKER) (test code = [place] 1538) [address] POCT-GLUCOSE [id number] 17:37:00 Test Item Value Reference Range Interpretation Comments POC-GLUCOSE METER 147 mg/dL 70-110 H TESTED AT [facility] 6720 (BEAKER) (test code = [place] 1538) [address] [id number] 17:19:00 Test Item Value Reference Range Interpretation Comments MAGNESIUM (BEAKER) (test code = 1.5 mg/dL 1.6-2.6 L 627) BASIC METABOLIC [id number] 17:19:00 Test Item Value Reference Range Interpretation [...] NOT APPLICABLE FOR DIALYSIS PATIEN TS. POCT-GLUCOSE [id number] 13:08:00 Test Item Value Reference Range Interpretation Comments POC-GLUCOSE METER 106 mg/dL 70-110 TESTED AT [facility] 67 ([facility]) (test code = [facility] 1538) [address] POCT-GLUCOSE [id number] 21:49:00 Test Item Value Reference Range Interpretation Comments POC-GLUCOSE METER 116 mg/dL 70-110 H TESTED AT [facility] 6720 ([facility]) (test code = [facility] 1538) [address] POCT-GLUCOSE [id number] 17:56:00 Test Item Value Reference Range Interpretation Comments POC-GLUCOSE METER 142 mg/dL 70-110 H TESTED AT [facility] 6720 ([facility]) (test code = [facility] 1538) [address] CT, CTA, [id number] 14:55:00Addendum BeginsREPORT STATUS:A Addendum:There is increased density visualized in the left pleural fluid collection. Clinical correlation is needed if an inflammatory or hemorrhag ic process is suspected.I agree with the previously described non vascular findings. Signed: Dorota Ackerman MDReport Verified Date/Time: 09/21/2018 14:55:20 Reading Location: [place] [address] Angio Body Reading RoomAddendum EndsFINAL REPORT CT [...] have increased ca lcific atherosclerosis seen with fesi-tn-oycrnowo lesion identified. The right common femoral arteryis [...] An addendum will be dictated by the Home Lighting Adviser Radiologist regarding the nonvascular findings. Signed: Shawn Barnes MDReport Verified Date/Time: 09/21/2018 14:01:54 Reading Location: [place] [id number] Cardiology MRI CT, CTA [id number] 14:55:00 Addendum BeginsREPORT STATUS:A Addendum:There is increased density visualized in the left pleural fluid collection. Clinical correlation is needed if an inflammatory or hemorrhagic process is suspected.I agree with the previously described non vascular findings. Signed: Dorota Ackerman Verified Date/Time: 09/21/2018 14:55:20 Reading Location: [place] [id number] Angio Body Reading RoomAddendum EndsFINAL REPORT CT [...] artery have increased calcific atherosclerosis seen with dwnh-il-srkrqgcu lesion identified. The right common femoral arteryis [...] An addendum will be dictated by the Home Lighting Adviser Radiologist regarding the nonvascular findings. Signed: Shawn [facility]aint [facility] Verified Date/Time: 09/21/2018 14:01:54 Reading Location: [place] [address] Cardiology MRI BASI METABOLIC [id number] 07:01:00 Test Item Value Reference Range Interpretation [...] mg/dL 8.4-10.2 (test code = 697) EGFR ([facility]) (test 67 mL/min/1.73 ESTIMA RUTH GFR IS code = 1092) sq m NOT ACCURATE CREATININE CLEARANCE IN PREDICTING GLOMERULAR FILTRATION RATE . ESTIMATED GFR I S NOT APPLICABLE FOR DIALYSIS PATIEN TS. POCT-GLUCOSE [id number] 22:18:00 Test Item Value Reference Range Interpretation Comments POC-GLUCOSE METER 176 mg/dL 70-110 H TESTED AT [place] [address] ([facility]) (test code = [place] Skylar [facility] 1538) [address] RAD, CHEST, 1 VIEW, NON [id number] 20:32:00Reason for exam:->SOBShould this be performed at [...] Rueda Verified Date/Time: 09/20/2018 20:32:40 Reading Location: [facility] Radiology Reading Room POCT- GLUCOSE [id number] 17:05:00 Test Item Value Reference Range Interpretation Comments POC-GLUCOSE METER 164 mg/dL 70-110 H TESTED AT [place] [address] ([facility]) (test code = [facility] Skylar [facility] 1538) [address] POCT-GLUCOSE [id number] 13:55:00 Test Item Value Reference Range Interpretation Comments POC-GLUCOSE METER 105 mg/dL 70-110 TESTED AT [place] [address] ([facility]) (test code = [facility] Skylar [facility] 1538) [address] POCT-GLUCOSE [id number] 09:01:00 Test Item Value Reference Range Interpretation Comments POC-GLUCOSE METER 116 mg/dL 70-110 H TESTED AT [place] [address] ([facility]) (test code = [facility] 1538) [address] BASIC METABOLIC [id number] 05:36:00 Test Item Value Reference Range Interpretation [...] NOT APPLICABLE FOR DIALYSIS PATIEN TS. POCT-GLUCOSE [id number] 23:13:00 Test Item Value Reference Range Interpretation Comments POC-GLUCOSE METER 119 mg/dL 70-110 H TESTED AT [place] [address] ([facility]) (test code = [facility] 1538) [address] POCT-GLUCOSE [id number] 18:21:00 Test Item Value Reference Range Interpretation Comments POC-GLUCOSE METER 155 mg/dL 70-110 H TESTED AT [place] [address] ([facility]) (test code = [facility] 1538) [address] HEMOGLOBIN [id number] 12:52:00 Test Item Value Reference Range Interpretation Comments HEMOGLOBIN A1C (BEAKER) (test code = 6.4 % 4.3-6.1 H 368) POCT-GLUCOSE [id number] 09:22:00 Test Item Value Reference Range Interpretation Comments POC-GLUCOSE METER 99 mg/dL 70-110 TESTED AT [place] [address] [facility] (test code = [facility] [address] 1538) BASIC METABOLIC [id number] 06:48:00 Test Item Value Reference Range Interpretation [...] NOT APPLICABLE FOR DIALYSIS PATIEN TS. TROPONIN [id number] 06:46:00 Test Item Value Reference Range Interpretation [...] PERCENT (BEAKER) (test code = 2801) TROPONIN [id number] 01:37:00 Test Item Value Reference Range Interpretation [...] (BEAKER) (test code = 700) COMPREHENSIVE METABOLIC [id number] 18:56:00 Test Item Value Reference Range Interpretation [...] PATIEN TS. CBC W/PLT COUNT & AUTO [id number] 18:35:00 Test Item Value Reference Range Interpretation [...] ABSOLUTE COUNT 0.97 K/ L 1.32-3.57 L (BEAKER) (test code = 414) MONOCYTES ABSOLUTE COUNT (BEAKER) 1.21 K/ L 0.30-0.82 H (test code = 415) EOSINOPHILS ABSOLUTE COUNT 0.32 K/ L 0.04-0.54 (BEAKER) (test code = 416) BASOPHILS ABSOLUTE COUNT (BEAKER) 0.04 K/ L 0.01-0.08 (test code = 417) IMMATURE GRANULOCYTES-RELATIVE 1 % 0-1 PERCENT (BEAKER) (test code = 2801) POCT-GLUCOSE [id number] 17:14:00 Test Item Value Reference Range Interpretation Comments POC-GLUCOSE METER 172 mg/dL 70-110 H TESTED AT [place] [address] (SHARMIN) (test code = [place] 1538) [address]
[2021-08-28 11:20] LABS: Absolute Lymphocytes (CBC) 1.2 K/uL (0.7-4.9); Basophils % 1.1 % (0-1.3); Hematocrit 38.5 % (39.6-49.0); Lymphocytes % 11.5 % (15.3-44.8); MPV 6.6 fL (7.6-11.3); RBC Red Blood Cell Count 4.18 M/uL (4.33-5.43)
[2021-08-28 11:23] LABS: Protime INR 1.15
[2021-08-28 11:39] LABS: ALT/SGPT 56 U/L (12-78); AST/SGOT 45 U/L (15-37); Albumin 3.8 g/dL (3.4-5.0); Alkaline Phosphatase 116 U/L (45-117); BUN Blood Urea Nitrogen 19 mg/dL (7-18); Bicarbonate 27 mmol/L (21-32); Bilirubin Direct 0.3 mg/dL (0-0.2); Bilirubin Total 0.8 mg/dL (0.2-1.0); Glucose Level 107 mg/dL (74-106); Magnesium 2.3 mg/dL (1.8-2.4); NT PRO-BNP 1914 pg/mL (<450); Potassium 4.5 mmol/L (3.5-5.1); Protein, Total 7.3 g/dL (6.4-8.2); Sodium Level 138 mmol/L (136-145); Troponin (Emerg Dept Use Only) < 0.02 ng/mL (0.0-0.045)
[2021-08-28] MEDS ORDERED: METOPROLOL TARTRATE 5 MG/5 ML INJ IV ONE (11:49)
--- NOTE | 2021-08-28 12:16 | RAD REPORT ---
EXAM DESCRIPTION: RAD - Chest Single View - 08/28/2021 11:54 am CLINICAL HISTORY: SOB COMPARISON: Chest Pa And Lat (2 Views) dated 02/20/2021; Chest Pa And Lat (2 Views) dated 10/15/2020; C hest Single View dated 10/14/2020; Chest Single View dated 11/09/2019; Abdomen Pelvis W Contrast dated 09/18/2018 FINDINGS: Lines: None. Lungs: Similar opacities at the left lung base. Pleural: Chronic blunting of the left costophrenic angle. Cardiac: Cardiomegaly. Sternotomy. Bones: No acute fractures. Other: IMPRESSION: Chronic left basilar opacity and blunting of the left costophrenic angle. No superimpose d acute process.
--- NOTE | 2021-08-28 15:09 | EDPHYS ---
Physician Documentation [facility] Name: Jeb Lubin Age: 81 yrs Sex: Male : 1940 Arrival Date: 08/28/2021 Time: 10:44 Bed 8 Private MD: Ismael Miller T ED Physician Felipe Loomis HPI: 08/28 18:51 This 81 yrs old Male presents to ER via Wheelchair with complaints of AFIB, kdr Breathing Difficulty. 18:51 The patient has shortness of breath at rest, with light activity. Onset: The kdr symptoms/episode began/occurred suddenly, 3 day(s) ago. Duration: The symptoms are intermittent. The patient's shortness of breath is aggravated by nothing, is alleviated by nothing. Associated signs and symptoms: The patient has no apparent associated signs or symptoms. Severity of symptoms: At their worst the symptoms were mild in the emergency department the symptoms are unchanged. The patient has not experienced similar symptoms in the past. The patient has been recently seen by a physician:. Patient was reportedly at cardiac rehab today when his heart rate was noted to be irregular. The staff suspected that he was in atrial fibrillation. He has a history of atrial fibrillation. The patient also reports that he has become increasingly short of breath with any exertion. He denies any change in medications or missing his medication regimen. Historical: - Allergies: 11:04 PENICILLINS; iw 11:04 Xarelto; iw - Home Meds: 11:04 atorvastatin 40 mg oral tab 1 tab once daily [Active]; clopidogrel 75 mg oral tab 1 tab iw once daily [Active]; furosemide 80 mg Oral tab 1 tab once daily [Active]; losartan 100 mg oral tab 1 tab once daily [Active]; galantamine 4 mg oral tab 1 tab 2 times per day [Active]; pantoprazole 40 mg oral TbEC once daily [Active]; memantine 10 mg oral tab 1 tab 2 times per day [Active]; ferrous gluconate 324 mg (36 mg iron) Oral tab daily [Active]; - PMHx: 11:04 Atrial Fib; Diabetes - NIDDM; Hypertension; iw - PSHx: 11:04 Coronary artery bypass graft; heart valve replacement; iw - Immunization history:: Client reports having NOT received the Covid vaccine. - Social history:: Smoking status: Patient/guardian denies using tobacco, but has a distant history of tobacco abuse. ROS: 18:51 Constitutional: Negative for fever, chills, and weight loss, Eyes: Negative for injury, kdr pain, redness, and discharge, Neck: Negative for injury, pain, and swelling, Abdomen/GI: Negative for abdominal pain, nausea, vomiting, diarrhea, and constipation, Back: Negative for injury and pain, : Negative for injury, bleeding, discharge, and swelling, MS/Extremity: Negative for injury and deformity, Skin: Negative for injury, rash, and discoloration, Neuro: Negative for headache, weakness, numbness, tingling, and seizure activity. Psych: Negative for depression, anxiety, suicide ideation, homicidal ideation, and hallucinations, Allergy/Immunology: Negative for hives, rash, and allergies, Endocrine: Negative for neck swelling, polydipsia, polyuria, polyphagia, and marked weight changes, Hematologic/Lymphatic: Negative for swollen nodes, abnormal bleeding, and unusual bruising. 18:51 Cardiovascular: Positive for Negative for chest pain, edema, orthopnea, palpitations. 18:51 Respiratory: Positive for dyspnea on exertion, shortness of breath. Exam: 18:51 Constitutional: This is a well developed, well nourished patient who is awake, alert, kdr and in no acute distress. Head/Face: Normocephalic, atraumatic. Eyes: Pupils equal round and reactive to light, extra-ocular motions intact. Lids and lashes normal. Conjunctiva and sclera are non-icteric and not injected. Cornea within normal limits. Periorbital areas with no swelling, redness, or edema. Neck: Trachea midline, no thyromegaly or masses palpated, and no cervical lymphadenopathy. Supple, full range of motion without nuchal rigidity, or vertebral point tenderness. No Meningismus. Chest/axilla: Normal chest wall appearance and motion. Nontender with no deformity. No lesions are appreciated. Cardiovascular: Regular rate and rhythm with a normal S1 and S2. No gallops, murmurs, or rubs. Normal PMI, no JVD. No pulse deficits. Respiratory: Lungs have equal breath sounds bilaterally, clear to auscultation and percussion. No rales, rhonchi or wheezes noted. No increased work of breathing, no retractions or nasal flaring. Back: No spinal tenderness. No costovertebral tenderness. Full range of motion. Skin: Warm, dry with normal turgor. Normal color with no rashes, no lesions, and no evidence of cellulitis. MS/ Extremity: Pulses equal, no cyanosis. Neurovascular intact. Full, normal range of motion. Neuro: Awake and alert, GCS 15, oriented to person, place, time, and situation. Cranial nerves II-XII grossly intact. Motor strength 5/5 in all extremities. Sensory grossly intact. Cerebellar exam normal. Normal gait. Psych: Awake, alert, with orientation to person, place and time. Behavior, mood, and affect are within normal limits. Vital Signs: 10:51 BP 172 / 82; Pulse 125; Resp 20; Temp 97.9; Pulse Ox 99% on R/A; Weight 68.49 kg; iw Height 5 ft. 5 in. (165.10 cm); 11:14 Pulse 102; ll1 11:55 BP 160 / 92; Pulse 90; ll1 14:36 BP 155 / 86; Pulse 105; Resp 19; Pulse Ox 99% on R/A; ld1 17:34 BP 139 / 68; Pulse 75; Resp 17; Pulse Ox 99% ; ll1 10:51 Body Mass Index 25.13 (68.49 kg, 165.10 cm) iw MDM: 15:09 Patient medically screened. kdr 18:51 Data reviewed: vital signs, nurses notes, lab test result(s), radiologic studies. kdr Counseling: I had a detailed discussion with the patient and/or guardian regarding: the historical points, exam findings, and any diagnostic results supporting the discharge/admit diagnosis, lab results, radiology results, the need for further work-up and treatment in the hospital. ED course: The patient continued to be tachycardic with any exertion and short of breath. He did not improve significantly with the interventions given. Based on his continued A. fib RVR presentation, will admit for further evaluation, treatment and management. 08/28 11: Order name: Basic Metabolic Panel 08/28 11: Order name: CBC with Diff 08/28 11: Order name: LFT's; Complete Time: 13:16 08/28 11: Order name: Magnesium; Complete Time: 13:16 08/28 11: Order name: NT PRO-BNP; Complete Time: 13:16 ss 08/28 11:02 Order name: PT-INR; Complete Time: 13:16 ss 08/28 11:02 Order name: Troponin (emerg Dept Use Only); Complete Time: 13:16 ss 08/28 11:02 Order name: Basic Metabolic Panel; Complete Time: 13:16 EDHI 08/28 11:02 Order name: CBC with Automated Diff; Complete Time: 13:16 EDHI 08/28 15:52 Order name: SARS-COV-2 RT PCR EDMS 08/28 15:59 Order name: Basic Metabolic Panel EDMS 08/28 15:59 Order name: Basic Metabolic Panel EDMS 08/28 15:59 Order name: Lipid Profile EDHI 08/28 11:02 Order name: XRAY Chest (1 view); Complete Time: 13:16 ss 08/28 15:59 Order name: Lipid Profile EDHI 08/28 15:59 Order name: Troponin I EDHI 08/28 15:59 Order name: Troponin I EDHI 08/28 15:59 Order name: Troponin I EDHI 08/28 16:00 Order name: CBC with Automated Diff EDMS 08/28 16:00 Order name: CBC with Automated Diff EDHI 08/28 16:01 Order name: Folic Acid, (Folate) EDHI 08/28 16:01 Order name: Iron EDHI 08/28 16:01 Order name: Magnesium EDHI 08/28 16:01 Order name: NT PRO-BNP EDHI 08/28 16:01 Order name: T4 Free EDHI 08/28 16:01 Order name: Thyroid Stimulating Hormone EDHI 08/28 16:01 Order name: Vitamin B12 Level EDHI 08/28 11:02 Order name: EKG; Complete Time: 11:03 08/28 11:02 Order name: Cardiac monitoring; Complete Time: 11:14 08/28 11:02 Order name: EKG - Nurse/Tech; Complete Time: 11:14 08/28 11:02 Order name: IV Saline Lock; Complete Time: 11: ss 08/28 11:02 Order name: Labs collected and sent; Complete Time: 11:08/28 11:02 Order name: O2 Per Protocol; Complete Time: 11:08/28 11:02 Order name: O2 Sat Monitoring; Complete Time: 11:08/28 13:18 Order name: Misc. Order: Ambulate patient and record vital signs ; Complete Time: 14:36 kdr 08/28 15:59 Order name: CONS Physician Consult EDHI 08/28 15:59 Order name: Heart Healthy EDHI 08/28 15:59 Order name: EKG Electrocardiogram EDHI 08/28 15:59 Order name: EKG Electrocardiogram EDMS Administered Medications: 11:50 Drug: Lopressor (metoprolol) 5 mg Route: IVP; Site: right antecubital; ll1 13:29 CANCELLED (incorrect patientt): Tylenol 1000 mg PO once ll1 Disposition Summary: 08/28/21 15:09 Hospitalization Ordered Hospitalization Status: Observation kdr Provider: Tiago Price Location: Telemetry/MedSurg (observation) kdr Condition: Fair kdr Problem: new kdr Symptoms: have improved kdr Bed/Room Type: Standard kdr Room Assignment: 210(08/28/21 17:31) dw Diagnosis - Weakness kdr - Exertional dyspnea and tachycardia kdr Forms: - Medication Reconciliation Form kdr - SBAR form kdr Signatures: Dispatcher [employer] EDHI Susannah Connolly RN RN dw Felipe Loomis MD MD kdr Dipiak Mohan RN RN Carolin Gerard RN RN ss Ashish Rogers RN RN 1 Alejandra Will RN RN ld1 Corrections: (The following items were deleted from the chart) 13:29 13:10 Tylenol 1000 mg PO once ordered. ll1 ll1 13:29 13:10 Tylenol 1000 mg PO once given. 1 ll1 13:29 13:28 Tylenol 1000 mg PO once ordered. 1 1 15:52 15:25 CORONAVIRUS+MRLuis ELAB.BRZ ordered. [facility] 17:31 15:09 kdr dw
--- NOTE | 2021-08-28 15:09 | ER ---
Nurse's Notes [facility] Name: Jeb Lubin Age: 81 yrs Sex: Male : 1940 Arrival Date: 08/28/2021 Time: 10:44 Bed 8 Private MD: Ismael Miller T Diagnosis: Weakness;Exertional dyspnea and tachycardia Presentation: 08/28 10:50 Chief complaint: Patient's son or daughter states: was at cardiac rehab and was told he iw may be in Afib, has hx of Afib, sees Dr. Tam, got SOB while in rehab. 10:50 Method Of Arrival: Wheelchair iw 10:51 Coronavirus screen: At this time, the client does not indicate any symptoms associated iw with coronavirus-19. Ebola Screen: Patient negative for fever greater than or equal to 101.5 degrees Fahrenheit, and additional compatible Ebola Virus Disease symptoms Patient denies exposure to infectious person. Patient denies travel to an Ebola-affected area in the 21 days before illness onset. No symptoms or risks identified at this time. Initial Sepsis Screen: Does the patient meet any 2 criteria? No. Patient's initial sepsis screen is negative. Does the patient have a suspected source of infection? No. Patient's initial sepsis screen is negative. Risk Assessment: Do you want to hurt yourself or someone else? Patient reports no desire to harm self or others. Onset of symptoms was August 28, 2021. 10:51 Acuity: CECILIA 3 iw 11:03 Acuity: CECILIA 2 iw Triage Assessment: 11:12 General: Appears in no apparent distress. Behavior is calm, cooperative, appropriate ll1 for age. Pain: Denies pain. Cardiovascular: Reports palpitations, Heart tones S1 S2 Capillary refill < 3 seconds Clubbing of nail beds is absent Patient's skin is warm and dry. Respiratory: Reports shortness of breath Breath sounds are clear bilaterally. Onset: The symptoms/episode began/occurred just prior to arrival, the patient has mild shortness of breath. Historical: - Allergies: 11:04 PENICILLINS; iw 11:04 Xarelto; iw - Home Meds: 11:04 atorvastatin 40 mg oral tab 1 tab once daily [Active]; clopidogrel 75 mg oral tab 1 tab iw once daily [Active]; furosemide 80 mg Oral tab 1 tab once daily [Active]; losartan 100 mg oral tab 1 tab once daily [Active]; galantamine 4 mg oral tab 1 tab 2 times per day [Active]; pantoprazole 40 mg oral TbEC once daily [Active]; memantine 10 mg oral tab 1 tab 2 times per day [Active]; ferrous gluconate 324 mg (36 mg iron) Oral tab daily [Active]; - PMHx: 11:04 Atrial Fib; Diabetes - NIDDM; Hypertension; iw - PSHx: 11:04 Coronary artery bypass graft; heart valve replacement; iw - Immunization history:: Client reports having NOT received the Covid vaccine. - Social history:: Smoking status: Patient/guardian denies using tobacco, but has a distant history of tobacco abuse. Screenin:12 Abuse screen: Denies threats or abuse. Nutritional screening: No deficits noted. ll1 Tuberculosis screening: No symptoms or risk factors identified. 11:13 Fall Risk IV access (20 points). Total Moore Fall Scale indicates No Risk (0-24 pts). ll1 Assessment: 11:55 Reassessment: No changes from previously documented assessment. Patient and/or family ll1 updated on plan of care and expected duration. Pain level reassessed. Patient is alert, oriented x 3, equal unlabored respirations, skin warm/dry/pink. Cardiovascular: Rhythm is atrial fibrillation. 11:55 Respiratory: Airway is patent Respiratory effort is even, unlabored. ll1 13:00 Reassessment: No changes from previously documented assessment. Patient and/or family ll1 updated on plan of care and expected duration. Pain level reassessed. Patient is alert, oriented x 3, equal unlabored respirations, skin warm/dry/pink. 14:00 Reassessment: No changes from previously documented assessment. Patient and/or family ll1 updated on plan of care and expected duration. Pain level reassessed. Patient is alert, oriented x 3, equal unlabored respirations, skin warm/dry/pink. 15:00 Reassessment: No changes from previously documented assessment. Patient and/or family ll1 updated on plan of care and expected duration. Pain level reassessed. Patient is alert, oriented x 3, equal unlabored respirations, skin warm/dry/pink. 16:00 Reassessment: No changes from previously documented assessment. Patient and/or family ll1 updated on plan of care and expected duration. Pain level reassessed. Patient is alert, oriented x 3, equal unlabored respirations, skin warm/dry/pink. 17:00 Reassessment: No changes from previously documented assessment. Patient and/or family ll1 updated on plan of care and expected duration. Pain level reassessed. Patient is alert, oriented x 3, equal unlabored respirations, skin warm/dry/pink. Vital Signs: 10:51 BP 172 / 82; Pulse 125; Resp 20; Temp 97.9; Pulse Ox 99% on R/A; Weight 68.49 kg; iw Height 5 ft. 5 in. (165.10 cm); 11:14 Pulse 102; ll1 11:55 BP 160 / 92; Pulse 90; ll1 14:36 BP 155 / 86; Pulse 105; Resp 19; Pulse Ox 99% on R/A; ld1 17:34 BP 139 / 68; Pulse 75; Resp 17; Pulse Ox 99% ; ll1 10:51 Body Mass Index 25.13 (68.49 kg, 165.10 cm) iw ED Course: 10:44 Patient arrived in ED. mr 10:45 Ismael Miller MD is Private Physician. mr 10:46 Felipe Loomis MD is Attending Physician. kdr 10:52 Triage completed. iw 11:00 Patient has correct armband on for positive identification. Placed in gown. Bed in low mh5 position. Call light in reach. Side rails up X 1. Adult w/ patient. Warm blanket given. security monitor on. Pulse ox on. NIBP on. 11:00 EKG done, by ED staff, reviewed by Felipe Loomis MD. mh5 11:11 Inserted saline lock: 20 gauge in right antecubital area, using aseptic technique. ll1 Blood collected. 11:13 Ashish Rogers, ISMA is Primary Nurse. ll1 11:53 XRAY Chest (1 view) In Process Unspecified. EDMS 15:08 Tiago Price MD is Hospitalizing Provider. kdr 18:00 No provider procedures requiring assistance completed. Patient admitted, IV remains in ld1 place. 18:01 Arm band placed on right wrist. ld1 Administered Medications: 11:50 Drug: Lopressor (metoprolol) 5 mg Route: IVP; Site: right antecubital; ll1 13:29 CANCELLED (incorrect patientt): Tylenol 1000 mg PO once ll1 Outcome: 15:09 Decision to Hospitalize by Provider. kdr 18:00 Admitted to Med/surg accompanied by nurse, via wheelchair, room 212, with chart, Report ld1 called to ISMA Ruiz 18:00 Condition: stable 18:01 Patient left the ED. ld1 Signatures: Dispatcher [employer] EDMS Felipe Loomis MD MD [facility] Spann, Dorota mr Dipika Mohan RN RN Amanda Michelle [facility] Ashish Rogers RN RN ll1 Alejandra Will RN RN ld1 Corrections: (The following items were deleted from the chart) 11:03 10:51 BP 172 / 82; Pulse 86bpm; Resp 20bpm; Pulse Ox 99% RA; Temp 97.9F; iw iw 11:07 10:50 Chief complaint: Patient's son or daughter states: was at cardiac rehab and was iw told he may be in Afib, has hx of Afib and on meds, sees Dr. Tam, got SOB while in rehab iw 13:28 13:10 Tylenol 1000 mg PO ll1 ll1
[2021-08-28] MEDS ORDERED: MORPHINE 4 MG/ML SYR IV PRN (15:56)
[2021-08-28] MEDS ORDERED: ALPRAZOLAM 0.25 MG TABLET PO PRN (15:56)
[2021-08-28] MEDS ORDERED: ACETAMINOPHEN 500 MG TAB PO PRN (15:56)
--- NOTE | 2021-08-28 18:33 | P.HP ---
Certification for Inpatient Patient admitted to: Observation With expected LOS: <2 Midnights Patient will require the following post-hospital care: None Practitioner: I am a practitioner with admitting privileges, knowledge of patient current condition, hospital course, and medical plan of care. Services: Services provided to patient in accordance with Admission requirements found in Title 42 Section 412.3 of the Code of Federal Regulations Patient History Date of Service: 08/28/21 Reason for admission: SVT/exertional dyspnea History of Present Illness: Patient is an 81yo gentleman who was at cardiac rehab outpatient when he was getting short of breath. They took his blood pressure no was elevated. Cardiac rehab was held and patient was sent home. Patient's heart rate was also elevated in the 120-130 range. When patient got home his heart rate was still very labile in blood pressure was still elevated. They spoke to Cardiology and they advised to go to the emergency room. In the ER patient was tachycardic and short of breath and found to be in congestive heart failure. Patient was admitted to the hospital for further evaluation. Allergies Penicillins Allergy (Verified 03/16/21 10:58) Hives/Rash rivaroxaban [From Xarelto] Adverse Reaction (Verified 03/16/21 10:58) GI BLEED Home Medications: Ascorbic Acid [Vitamin C with Mackenzie Hips] 1,000 mg PO DAILY 10/15/20 Atorvastatin Calcium [Lipitor] 40 mg PO BEDTIME 10/15/20 Cholecalciferol (Vitamin D3) [Vitamin D 5,000 IU Cap*] 5,000 unit PO BID 10/15/20 Clopidogrel Bisulfate [Plavix*] 75 mg PO DAILY 10/15/20 Galantamine HBr [Galantamine ER] 4 mg PO BID 10/15/20 Glucosam/Rojas-Msm1/C/Ghanshyam/Bosw [Osteo Bi-Flex Caplet] 1 tab PO BID 10/15/20 Losartan Potassium [Cozaar] 100 mg PO DAILY 10/15/20 Memantine HCl [Namenda*] 10 mg PO BID 10/15/20 [place]-3 Fatty Acids/Fish Oil [Fish Oil 1,000 mg Softgel] 2 cap PO BID 10/15/20 Pantoprazole [Protonix Tab*] 40 mg PO DAILY 10/15/20 Vit A,C & E/Lutein/Minerals [Ocuvite Tablet] 1 tab PO DAILY 10/15/20 Zinc 50 mg PO DAILY 10/15/20 Coconut Oil 2 cap PO BID 03/16/21 Dorzolamide HCl/Pf [Dorzolamide 2% Eye Drop] 1 drop EACH EYE BID 03/16/21 Ferrous Gluconate 324 mg PO DAILY 03/16/21 Timolol Maleate/Pf [Timolol Maleate 0.5% Eye Drop] 1 each EACH EYE BID 03/16/21 Furosemide [Lasix] 80 mg PO DAILY 08/28/21 Multivitamin 1 each PO DAILY 08/28/21 - Past Medical/Surgical History Diabetic: No -: HTN -: High Cholesterol -: Vascular Dementia -: CABG -: Diabetes mellitus type 2 -: CAD -: polio during childhood -: A. Fib -: Triple Bypass -: Aortic Valve Replacement-bovine Psychosocial/ Personal History: Patient currently lives at home alone - Family History Brother Medical History: Heart disease, Other (see notes) Notes: [place] Father Medical History: Heart disease Mother Medical History: Heart disease - Social History Smoking Status: Never smoker Alcohol use: Yes CD- Drugs: No Caffeine use: Yes Review of Systems 10-point ROS is otherwise unremarkable Physical Examination - Vital Signs Temperature: 97.3 F Blood Pressure: 163/92 Pulse: 75 Respirations: 16 Pulse Ox (%): 97 - Physical Exam General: Alert, In no apparent distress, Oriented x3 HEENT: Atraumatic, PERRLA, Mucous membr. moist/pink, EOMI, Sclerae nonicteric Neck: Supple, 2+ carotid pulse no bruit, No LAD, Without JVD or thyroid abnormality Respiratory: Diminished, Crackles/rales Cardiovascular: Irregular heart rate/rhythm, Systolic murmur Gastrointestinal: Normal bowel sounds, Soft and benign, Non-distended, No tenderness Musculoskeletal: No clubbing, No swelling, No tenderness Integumentary: No rashes Neurological: Normal gait, Normal speech, Normal strength at 5/5 x4 extr, Normal tone, Normal affect Lymphatics: No axilla or inguinal lymphadenopathy - Studies Laboratory Data (last 24 hrs) 08/28/21 11:08: PT 13.2 H, INR 1.15 08/28/21 11:08: WBC 10.40, Hgb 12.9 L, Hct 38.5 L, Plt Count 242 08/28/21 11:08: Sodium 138, Potassium 4.5, BUN 19 H, Creatinine 1.24, Glucose 107 H, Magnesium 2.3, Total Bilirubin 0.8, AST 45 H, ALT 56, Alkaline Phosphatase 116 Assessment & Plan - Problems (Diagnosis) (1) SVT (supraventricular tachycardia) Current Visit: Yes Status: Acute (2) Exertional dyspnea Current Visit: Yes Status: Acute (3) CAD (coronary artery disease) Onset Date: 09/08/18 Current Visit: No Status: Acute (4) CHF (congestive heart failure) Onset Date: 09/08/18 Current Visit: No Status: Acute Qualifiers: Heart failure type: diastolic Heart failure chronicity: acute Qualified Code(s): I50.31 - Acute diastolic (congestive) heart failure (5) Diabetes mellitus Onset Date: 09/08/18 Current Visit: No Status: Acute (6) Hypertension, essential Onset Date: 09/08/18 Current Visit: No Status: Acute (7) Pulmonary hypertension Onset Date: 09/08/18 Current Visit: No Status: Acute - Plan 1. Discuss with Cardiology regarding echocardiogram 2. Continue medication for rate control 3. Continue with diuresing 4. Cardiology consultation 5. Strict blood pressure and blood sugar control 6. Strict I's and O's 7. Repeat CXR 8. Daily weights 9. Physical therapy evaluation - Advance Directives Does patient have a Living Will: Yes Does patient have a Durable POA for Healthcare: No
[2021-08-28] MEDS: METOPROLOL TAR 50 MG TAB PO SCH (21:17)
[2021-08-28 22:59] VITALS: BMI 25.0
[2021-08-29 06:33] LABS: Absolute Lymphocytes (CBC) 1.2 K/uL (0.7-4.9); Basophils % 0.6 % (0-1.3); Hematocrit 34.5 % (39.6-49.0); Lymphocytes % 14.6 % (15.3-44.8); MPV 6.8 fL (7.6-11.3); RBC Red Blood Cell Count 3.72 M/uL (4.33-5.43)
[2021-08-29 07:10] LABS: BUN Blood Urea Nitrogen 19 mg/dL (7-18); Bicarbonate 25 mmol/L (21-32); Glucose Level 94 mg/dL (74-106); Potassium 4.3 mmol/L (3.5-5.1); Sodium Level 135 mmol/L (136-145); Troponin I < 0.02 ng/mL (0.0-0.045)
[2021-08-29 07:44] LABS: HDL Cholesterol 63 mg/dL (40-60); LDL Cholesterol, Calculated 24 (<130); Magnesium 2.1 mg/dL (1.8-2.4); NT PRO-BNP 1960 pg/mL (<450)
[2021-08-29 07:45] LABS: Folic Acid, (Folate) > 20.0 ng/mL (3.1-17.5)
[2021-08-29] MEDS: GALANTAMINE 4 MG TAB PO SCH ×2 (08:19→20:47)
[2021-08-29] MEDS: PANTOPRAZOLE 40MG TABLET PO SCH (08:19)
[2021-08-29] MEDS: FERROUS GLUCONATE 324 MG TAB PO SCH (08:20)
[2021-08-29] MEDS: METOPROLOL TAR 50 MG TAB PO SCH ×2 (08:20→20:47)
[2021-08-29] MEDS: CLOPIDOGREL 75 MG TABLET PO SCH (08:20)
[2021-08-29] MEDS: MEMANTINE HCL 10 MG TABLET PO SCH ×2 (08:20→20:48)
[2021-08-29] MEDS: LOSARTAN POTASSIUM 50 MG TABLET PO SCH (08:20)
[2021-08-29] MEDS: ENOXAPARIN 40 MG/0.4 ML SQ SCH (08:21)
[2021-08-29] MEDS: ASPIRIN EC 81 MG TAB PO SCH (08:21)
[2021-08-29] MEDS ORDERED: DROPERETTE OPTH SCH ×2 (09:00→21:00)
[2021-08-29] MEDS ORDERED: DORZOLAMIDE 2% OPTH (10 ML) OPTH SCH ×2 (09:00→21:00)
[2021-08-29] MEDS ORDERED: TIMOLOL MALEATE OPTH SCH ×2 (09:00→21:00)
[2021-08-29] MEDS ORDERED: FUROSEMIDE 40 MG/4 ML VIAL IV ONE (13:41)
[2021-08-29] MEDS: FUROSEMIDE 40 MG/4 ML VIAL IV SCH (17:00)
[2021-08-29] MEDS: DORZOLAMIDE 2% OPTH (10 ML) OPTH SCH (18:52)
[2021-08-29] MEDS: TIMOLOL MALEATE OPTH SCH (18:52)
[2021-08-29] MEDS: DROPERETTE OPTH SCH (18:52)
[2021-08-29] MEDS: ATORVASTATIN 40 MG TAB PO SCH (20:48)
--- NOTE | 2021-08-29 20:56 | P.PN ---
Subjective Date of Service: 08/29/21 Patient feeling somewhat better. Still short of breath and hypertensive. Still with poor rate control Review of Systems 10-point ROS is otherwise unremarkable Physical Examination - Vital Signs Temperature: 97.3 F Blood Pressure: 163/92 Pulse: 75 Respirations: 16 Pulse Ox (%): 97 - Physical Exam General: Alert, In no apparent distress, Oriented x3 Respiratory: Crackles/rales Cardiovascular: Irregular heart rate/rhythm Gastrointestinal: Normal bowel sounds, Soft and benign, Non-distended Musculoskeletal: No clubbing, No swelling Neurological: Normal gait, Normal speech, Normal strength at 5/5 x4 extr, Normal tone, Sensation intact, Cranial nerves 3-12 intact - Studies Laboratory Data (last 24 hrs) 08/29/21 05:53: Sodium 135 L, Potassium 4.3, BUN 19 H, Creatinine 1.17, Glucose 94, Troponin I < 0.02 08/29/21 05:53: WBC 8.30 D, Hgb 11.4 L, Hct 34.5 L, Plt Count 226 08/29/21 05:23: Magnesium 2.1, Triglycerides 44, Cholesterol 96, HDL Cholesterol 63 H, Cholesterol/HDL Ratio 1.52 08/28/21 21:24: Troponin I < 0.02 Assessment & Plan - Problems (Diagnosis) (1) SVT (supraventricular tachycardia) Current Visit: Yes Status: Acute (2) Exertional dyspnea Current Visit: Yes Status: Acute (3) CAD (coronary artery disease) Onset Date: 09/08/18 Current Visit: No Status: Acute (4) CHF (congestive heart failure) Onset Date: 09/08/18 Current Visit: No Status: Acute Qualifiers: Heart failure type: diastolic Heart failure chronicity: acute Qualified Code(s): I50.31 - Acute diastolic (congestive) heart failure (5) Diabetes mellitus Onset Date: 09/08/18 Current Visit: No Status: Acute (6) Hypertension, essential Onset Date: 09/08/18 Current Visit: No Status: Acute (7) Pulmonary hypertension Onset Date: 09/08/18 Current Visit: No Status: Acute - Plan 1. Discuss with Cardiology regarding echocardiogram 2. Continue medication for rate control 3. Continue with diuresing 4. Cardiology consultation 5. Strict blood pressure and blood sugar control 6. Strict I's and O's 7. Repeat CXR 8. Daily weights 9. Physical therapy evaluation - Advance Directives Does patient have a Living Will: Yes Does patient have a Durable POA for Healthcare: No
[2021-08-30] MEDS: DORZOLAMIDE 2% OPTH (10 ML) OPTH SCH ×2 (06:00→18:00)
[2021-08-30] MEDS: TIMOLOL MALEATE OPTH SCH ×2 (06:00→18:00)
[2021-08-30] MEDS: DROPERETTE OPTH SCH ×2 (06:00→18:00)
[2021-08-30] MEDS: METOPROLOL TAR 50 MG TAB PO SCH ×3 (06:09→18:36)
[2021-08-30] MEDS: FERROUS GLUCONATE 324 MG TAB PO SCH (07:48)
[2021-08-30] MEDS: GALANTAMINE 4 MG TAB PO SCH ×2 (07:48→20:56)
[2021-08-30] MEDS: ASPIRIN EC 81 MG TAB PO SCH (07:48)
[2021-08-30] MEDS: MEMANTINE HCL 10 MG TABLET PO SCH ×2 (07:48→20:56)
[2021-08-30] MEDS: CLOPIDOGREL 75 MG TABLET PO SCH ×2 (07:48→07:49)
[2021-08-30] MEDS: PANTOPRAZOLE 40MG TABLET PO SCH (07:49)
[2021-08-30] MEDS: LOSARTAN POTASSIUM 50 MG TABLET PO SCH (07:49)
[2021-08-30] MEDS: FUROSEMIDE 40 MG/4 ML VIAL IV SCH ×2 (07:49→17:53)
[2021-08-30] MEDS: ENOXAPARIN 40 MG/0.4 ML SQ SCH (07:50)
[2021-08-30] MEDS ORDERED: HYDRALAZINE HCL 20 MG/ML VIAL IV ONE (12:11)
[2021-08-30] MEDS: ATORVASTATIN 40 MG TAB PO SCH (20:57)
--- NOTE | 2021-08-30 21:39 | P.PN ---
Date of Service: 08/30/21 Subjective Patient feeling much better today. Short of breath on ambulation. Spoke with cardiology and plan to give diuretics 1 more day and discharged in the morning. Review of Systems 10-point ROS is otherwise unremarkable Physical Examination - Vital Signs reviewed - Physical Exam General: Alert, In no apparent distress, Oriented x3 Respiratory: Crackles/rales Cardiovascular: Irregular heart rate/rhythm Gastrointestinal: Normal bowel sounds, Soft and benign, Non-distended Musculoskeletal: No clubbing, No swelling Neurological: Normal gait, Normal speech, Normal strength at 5/5 x4 extr, Normal tone, Sensation intact, Cranial nerves 3-12 intact Assessment & Plan - Problems (Diagnosis) (1) SVT (supraventricular tachycardia) Current Visit: Yes Status: Acute (2) Exertional dyspnea Current Visit: Yes Status: Acute (3) CAD (coronary artery disease) Onset Date: 09/08/18 Current Visit: No Status: Acute (4) CHF (congestive heart failure) Onset Date: 09/08/18 Current Visit: No Status: Acute Qualifiers: Heart failure type: diastolic Heart failure chronicity: acute Qualified Code(s): I50.31 - Acute diastolic (congestive) heart failure (5) Diabetes mellitus Onset Date: 09/08/18 Current Visit: No Status: Acute (6) Hypertension, essential Onset Date: 09/08/18 Current Visit: No Status: Acute (7) Pulmonary hypertension Onset Date: 09/08/18 Current Visit: No Status: Acute - Plan Continue with POC re: CHF; 1. Discuss with Cardiology regarding echocardiogram done recently; normal EF 2. Continue medication for rate control 3. Continue with diuresing 4. Cardiology consultation appreciated 5. Strict blood pressure and blood sugar control; improved 6. Strict I's and O's 7. Repeat CXR 8. Daily weights 9. Physical therapy evaluation - Advance Directives Does patient have a Living Will: Yes Does patient have a Durable POA for Healthcare: No
[2021-08-31] MEDS: DROPERETTE OPTH SCH (06:00)
[2021-08-31] MEDS: DORZOLAMIDE 2% OPTH (10 ML) OPTH SCH (06:00)
[2021-08-31] MEDS: TIMOLOL MALEATE OPTH SCH (06:00)
--- NOTE | 2021-08-31 06:03 | P.DS ---
Admission Date: 08/29/21 Discharge Date: 08/31/21 Disposition: ROUTINE DISCHARGE Discharge Condition: GOOD Reason for Admission: SVT/exertional dyspnea Consultations: Cardiology-Dr. Tam Procedures: COVID: Negative CXR: COMPARISON: Chest Pa And Lat (2 Views) dated 02/20/2021; Chest Pa And Lat (2 Views) dated 10/15/2020; Chest Single View dated 10/14/2020; Chest Single View dated 11/09/2019; Abdomen Pelvis W Contrast dated 09/18/2018 FINDINGS: Lines: None. Lungs: Similar opacities at the left lung base. Pleural: Chronic blunting of the left costophrenic angle. Cardiac: Cardiomegaly. Sternotomy. Bones: No acute fractures. IMPRESSION: Chronic left basilar opacity and blunting of the left costophrenic angle. No superimposed acute process. Medical Problem List: Dyspnea secondary to acute on chronic diastolic CHF Supraventricular tachycardia Chronic atrial fibrillation not on chronic anticoagulation therapy Hypertension CAD with prior CABG Vascular dementia Hyperlipidemia Anemia of chronic disease GERD Brief History of Present Illness: 81-year-old male with history of hypertension, diastolic CHF, atrial fibrillation presented with increasing shortness of breath. Patient was at cardiac rehab when he started to have shortness of breath. He had been taking his blood pressure medication which was elevated. Cardiac rehab was held. Patient was sent home. At home heart rate was in the 1 20-1 30 range. Patient was eventually seen in the ER. Patient was found to have SVT. Patient also admitted for CHF. Hospital Course: Patient presented with dyspnea secondary to acute on chronic diastolic CHF. Patient also found to have supraventricular tachycardia and hypertension with elevated blood pressure. The patient was treated during the course of his stay. Patient given IV diuretic therapy with improvement. Additional medication included metoprolol. At discharge blood pressure improved. Patient without significant shortness of breath. Patient on room air. Blood pressure well controlled. Patient with atrial fibrillation rate controlled. Cardiac enzymes unremarkable. LDL 24. Patient has done well with treatment. At discharge for his CHF the patient will continue with the 1500 cc/day fluid restriction and low-salt diet. Recommend to monitor his weight daily. If his weight increases by more than 5 pounds he is to contact his litigation manager or PCP for further instruction. At discharge the patient will continue with Lasix 80 mg daily. Recommend follow-up with cardiology in 1 to 2 weeks to follow-up his hospitalization. Recommend follow-up with PCP in 1 week to follow-up this hospi talization. Patient with hypertension and supraventricular tachycardia. This has resolved. Blood pressure improved. Patient previously on losartan. Additional medication includes metoprolol. At discharge the patient will continue with losartan 100 mg daily and metoprolol 100 mg 1 pill twice daily. Recommend to maintain blood pressure less than 130/80. If blood pressure remains above 140/90 additional medication may be required. This can be done with the help of his PCP or litigation manager. Patient with hyperlipidemia. At discharge patient will continue with Lipitor 40 mg jose and omega-3 2 pills twice daily. Patient with history of atrial fibrillation not on chronic anticoagulation therapy and CAD with prior CABG. Patient overall stable. Cardiac enzymes unremarkable. LDL well controlled. At discharge patient will continue with Plavix 25 mg daily and medications as stated above. Patient with underlying vascular dementia. At discharge patient appears to be at his baseline. Patient appropriate. At discharge patient will continue with Namenda 10 mg 1 pill twice daily and galantamine 4 mg 1 pill twice daily. Patient with GERD. At discharge patient will continue with Protonix 40 mg daily. Patient with anemia chronic disease. At discharge patient will continue with iron supplementation daily, multivitamin daily, vitamin C daily and his other vitamin supplementation. Vital Signs/Physical Exam: Temp Pulse Resp BP Pulse Ox 98.2 F 72 17 132/65 96 08/31/21 04:00 08/31/21 04:00 08/31/21 04:00 08/31/21 04:00 08/31/21 04:00 General: Alert, In no apparent distress, Cooperative HEENT: Atraumatic Neck: Supple Respiratory: Clear to auscultation bilaterally, Normal air movement Cardiovascular: Other (A. fib rate controlled) Gastrointestinal: Normal bowel sounds, No ascites, No tenderness, No masses, No rebound, No guarding Integumentary: No tenderness/swelling, No erythema, No warmth, No cyanosis Neurological: Normal speech, Normal strength at 5/5 x4 extr, Normal tone Laboratory Data at Discharge: WBC 8.30 K/uL (4.3-10.9) D 08/29/21 05:53 Hgb 11.4 g/dL (13.6-17.9) L 08/29/21 05:53 Hct 34.5 % (39.6-49.0) L 08/29/21 05:53 Plt Count 226 K/uL (152-406) 08/29/21 05:53 PT 13.2 SECONDS (9.5-12.5) H 08/28/21 11:08 INR 1.15 08/28/21 11:08 Sodium 135 mmol/L (136-145) L 08/29/21 05:53 Potassium 4.3 mmol/L (3.5-5.1) 08/29/21 05:53 BUN 19 mg/dL (7-18) H 08/29/21 05:53 Creatinine 1.17 mg/dL (0.55-1.3) 08/29/21 05:53 Glucose 94 mg/dL (74-106) 08/29/21 05:53 Magnesium 2.1 mg/dL (1.8-2.4) 08/29/21 05:23 Total Bilirubin 0.8 mg/dL (0.2-1.0) 08/28/21 11:08 AST 45 U/L (15-37) H 08/28/21 11:08 ALT 56 U/L (12-78) 08/28/21 11:08 Alkaline Phosphatase 116 U/L (45-117) 08/28/21 11:08 Troponin I < 0.02 ng/mL (0.0-0.045) 08/29/21 05:53 Triglycerides 44 mg/dL (<150) 08/29/21 05:23 Cholesterol 96 mg/dL (<200) 08/29/21 05:23 HDL Cholesterol 63 mg/dL (40-60) H 08/29/21 05:23 Cholesterol/HDL Ratio 1.52 08/29/21 05:23 Home Medications: Ascorbic Acid [Vitamin C with Mackenzie Hips] 1,000 mg PO DAILY 10/15/20 Atorvastatin Calcium [Lipitor] 40 mg PO BEDTIME 10/15/20 Cholecalciferol (Vitamin D3) [Vitamin D 5,000 IU Cap*] 5,000 unit PO BID 10/15/20 Clopidogrel Bisulfate [Plavix*] 75 mg PO DAILY 10/15/20 Galantamine HBr [Galantamine ER] 4 mg PO BID 10/15/20 Glucosam/Rojas-Msm1/C/Ghanshyam/Bosw [Osteo Bi-Flex Caplet] 1 tab PO BID 10/15/20 Losartan Potassium [Cozaar] 100 mg PO DAILY 10/15/20 Memantine HCl [Namenda*] 10 mg PO BID 10/15/20 [place]-3 Fatty Acids/Fish Oil [Fish Oil 1,000 mg Softgel] 2 cap PO BID 10/15/20 Pantoprazole [Protonix Tab*] 40 mg PO DAILY 10/15/20 Vit A,C & E/Lutein/Minerals [Ocuvite Tablet] 1 tab PO DAILY 10/15/20 Zinc 50 mg PO DAILY 10/15/20 Coconut Oil 2 cap PO BID 03/16/21 Dorzolamide HCl/Pf [Dorzolamide 2% Eye Drop] 1 drop EACH EYE BID 03/16/21 Ferrous Gluconate 324 mg PO DAILY 03/16/21 Timolol Maleate/Pf [Timolol Maleate 0.5% Eye Drop] 1 each EACH EYE BID 03/16/21 Furosemide [Lasix] 80 mg PO DAILY 08/28/21 Multivitamin 1 each PO DAILY 08/28/21 Metoprolol Tartrate 100 mg PO BID #60 tablet 08/31/21 New Medications: Metoprolol Tartrate 100 mg PO BID #60 tablet Physician Discharge Instructions: Patient presented with dyspnea secondary to acute on chronic diastolic CHF. Patient also found to have supraventricular tachycardia and hypertension with elevated blood pressure. The patient was treated during the course of his stay. Patient given IV diuretic therapy with improvement. Additional medication included metoprolol. At discharge blood pressure improved. Patient without significant shortness of breath. Patient on room air. Blood pressure well co ntrolled. Patient with atrial fibrillation rate controlled. Cardiac enzymes unremarkable. LDL 24. Patient has done well with treatment. At discharge for his CHF the patient will continue with the 1500 cc/day fluid restriction and low-salt diet. Recommend to monitor his weight daily. If his weight increases by more than 5 pounds he is to contact his litigation manager or PCP for further instruction. At discharge the patient will continue with Lasix 80 mg daily. Recommend follow-up with cardiology in 1 to 2 weeks to follow-up his hospitalization. Recommend follow-up with PCP in 1 week to follow-up this hospitalization. Patient with hypertension and supraventricular tachycardia. This has resolved. Blood pressure improved. Patient previously on losartan. Additional medication includes metoprolol. At discharge the patient will continue with losartan 100 mg daily and metoprolol 100 mg 1 pill twice daily. Recommend to maintain blood pressure less than 130/80. If blood pressure remains above 140/90 additional medication may be required. This can be done with the help of his PCP or litigation manager. Patient with hyperlipidemia. At discharge patient will continue with Lipitor 40 mg jose and omega-3 2 pills twice daily. Patient with history of atrial fibrillation not on chronic anticoagulation therapy and CAD with prior CABG. Patient overall stable. Cardiac enzymes unremarkable. LDL well controlled. At discharge patient will continue with Plavix 25 mg daily and medications as stated above. Patient with underlying vascular dementia. At discharge patient appears to be at his baseline. Patient appropriate. At discharge patient will continue with Namenda 10 mg 1 pill twice daily and galantamine 4 mg 1 pill twice daily. Patient with GERD. At discharge patient will continue with Protonix 40 mg daily. Patient with anemia chronic disease. At discharge patient will continue with iron supplementation daily, multivitamin daily, vitamin C daily and his other vitamin supplementation. Diet: AHA Activity: Ad kiarra Followup: Ismael Miller MD [Primary Care Provider] - Time spent managing pt's care (in minutes): 55
[2021-08-31] MEDS: METOPROLOL TAR 50 MG TAB PO SCH (06:32)
[2021-08-31] MEDS: ENOXAPARIN 40 MG/0.4 ML SQ SCH (08:25)
[2021-08-31] MEDS: PANTOPRAZOLE 40MG TABLET PO SCH (08:26)
[2021-08-31] MEDS: LOSARTAN POTASSIUM 50 MG TABLET PO SCH (08:26)
[2021-08-31] MEDS: MEMANTINE HCL 10 MG TABLET PO SCH (08:26)
[2021-08-31] MEDS: ASPIRIN EC 81 MG TAB PO SCH (08:28)
[2021-08-31] MEDS: FERROUS GLUCONATE 324 MG TAB PO SCH (08:28)
[2021-08-31] MEDS: GALANTAMINE 4 MG TAB PO SCH (08:28)
[2021-08-31] MEDS ORDERED: ZINC SULFATE 220 MG CAP PO SCH (09:00)
[2021-08-31] MEDS ORDERED: FUROSEMIDE 40 MG TABLET PO SCH (09:00)
[2021-08-31] MEDS ORDERED: MULTIVIT W/ MINERAL TAB PO SCH (09:00)
[2021-08-31] MEDS ORDERED: DOCOSAHEXANOIC AC/EPA 1000 MG PO SCH (09:00)
[2021-08-31] MEDS ORDERED: ASCORBIC ACID 500 MG TABLET PO SCH (09:00)
[2021-08-31] MEDS ORDERED: OCUVITE (VIT A,C & E/LUTEIN/MINERAL) TABLET PO SCH (09:00)
[2021-08-31] MEDS ORDERED: VITAMIN D 5,000 UNIT CAP PO SCH (09:00)
[2021-08-31 10:19] VITALS: O2SAT 96
[2021-08-31 12:28] VITALS: BP 163/92; TEMP 97.3
--- NOTE | 2021-09-02 08:20 | EKG ---
Test Date: 2021-08-28 Test Time: 10:59:55 [id number] Lead: ARTURO MEASUREMENT RESULTS: Intervals: Rate: 120 VT: QRSD: 92 QT: 344 QTc: 486 [place]: P: VT: QRS: 54 T: 101 INTERPRETIVE STATEMENTS: Atrial fibrillation with rapid ventricular response Possible Anterior infarct, age undetermined Abnormal ECG Compared to ECG 10/14/2020 19:01:26 Sinus bradycardia no longer present Sinus arrhythmia no longer present Myocardial infarct finding still present Electronically Signed On 09-02-21 08:05:12 FLOOR TRADER by Kelechi Tam
== END 2021-08-31 10:12 | disposition home or self-care (01) | DRG 291 ==
LOC: ER 10:41 → ERHOLD 15:56 → INTOOBSV 15:56 → 2ND 17:54 → OBSVTOIN 08-29 14:02
PROVIDERS: ADMIT Hospitalist; ATTEND Hospitalist
DX: I11.0 Hypertensive heart disease with heart failure (principal); I50.33 Acute on chronic diastolic (congestive) heart failure; I47.1 Supraventricular tachycardia; I48.20 Chronic atrial fibrillation, unspecified; I25.10 Atherosclerotic heart disease of native coronary artery without angina pectoris; F01.50 Vascular dementia, unspecified severity, without behavioral disturbance, psychotic disturbance, mood disturbance, and anxiety; E78.5 Hyperlipidemia, unspecified; D63.8 Anemia in other chronic diseases classified elsewhere; K21.9 Gastro-esophageal reflux disease without esophagitis; E11.9 Type 2 diabetes mellitus without complications; I27.20 Pulmonary hypertension, unspecified; Z95.1 Presence of aortocoronary bypass graft; Z88.0 Allergy status to penicillin; Z20.822 Contact with and (suspected) exposure to COVID-19
CPT/HCPCS: 36415; 71045; 80048; 80061; 80076; 82607; 82746; 83540; 83735; 83880; 84439; 84443; 84484; 85025; 85610; 93005; 96374; 97161; 99285; G0378; J0360; J1650; J1940; U0003

== ENCOUNTER 2021-09-13 02:06 | Inpatient (IN) | payer OTHER ==
--- OUTSIDE RECORDS SUMMARY | 2021-09-13 02:11 | XMS REPORT | Continuity of Care Document ---
:1940 Author Organization [facility] t Address [facility] [place] [address] Care Team Providers Name Role Phone CIVUNIGUNTA Attending Clinician Unavailable CIVUNIGUNTA Admitting Clinician Unavailable Problems This patient has no known problems. Allergies, Adverse Reactions, Alerts This patient has no known allergies or adverse reactions. Medications This patient has no known medications. Procedures This patient has no known procedures. Results Test Description Test Time Test Comments Results Result [facility] e Comments TISSUE EXAM 2018-10-04 Surgical Pathology 14:19:00 Report Case: [id number] Authorizing Provider: Jhonathan Sharma MD Collected: 09/25/2018 1808 Ordering Location: [address] Received: 09/26/2018 0927 Service Pathologist: Haris Jeter MD Specimen: Plaque, arterial plaque ARTERY, LEFT FEMORAL, ENDARTERECTOMY:CALCIFI C ATHEROSCLEROTIC PLAQUE Signing Pathologist Direct Phone Line: [phone] ally signed by Haris Jeter MD on 10/04/2018 at 2:19 [id number]; [id number] femoral artery plaqueArterial plaqueThe specimen is received in saline labeled with the patient's information labeled "arterial plaque" and consists of previously opened calcified segment of tissue measuring 2.5 cm in length x 0.5 cm in circumference. [employer] sections are submitted A1 for decalcification. CG/pl Performed POCT-GLUCOSE METER 2018-09-28 13:44:00 Test Item Value Reference Range Interpretation Comme nts POC-GLUCOSE METER (BEAKER) (test 326 mg/dL 70-110 H TESTED AT [facility] [address] code = 1538) [facility] 7703 0 POCT-GLUCOSE [id number] 11:32:00 Test Item Value Reference Range Interpretation Comments POC-GLUCOSE METER 150 mg/dL 70-110 H TESTED AT [facility] [address] (BEAKER) (test code = [place] 1538) [address] [id number] 04:26:00 Test Item Value Reference Range Interpretation Comments MAGNESIUM (BEAKER) (test code = 1.6 mg/dL 1.6-2.6 627) BASIC METABOLIC [id number] 04:26:00 Test Item Value Reference Range Interpretation [...] PATIEN TS. CBC W/PLT COUNT & AUTO [id number] 04:09:00 Test Item Value Reference Range Interpretation [...] 0-1 PERCENT (BEAKER) (test code = 2801) [id number] 03:49:00 Test Item Value Reference Range Interpretation Comments MAGNESIUM (BEAKER) (test code = 1.7 mg/dL 1.6-2.6 627) BASIC METABOLIC [id number] 03:49:00 Test Item Value Reference Range Interpretation [...] PATIEN TS. CBC W/PLT COUNT & AUTO [id number] 03:32:00 Test Item Value Reference Range Interpretation [...] 0-1 PERCENT (BEAKER) (test code = 2801) [id number] 10:17:00 Test Item Value Reference Range Interpretation Comments MAGNESIUM (BEAKER) (test code = 1.6 mg/dL 1.6-2.6 627) BASIC METABOLIC [id number] 10:17:00 Test Item Value Reference Range Interpretation [...] PATIEN TS. CBC W/PLT COUNT & AUTO [id number] 03:47:00 Test Item Value Reference Range Interpretation [...] 0-1 PERCENT (BEAKER) (test code = 2801) [id number] 17:44:00 Test Item Value Reference Range Interpretation Comments ACTIVATED CLOTTING TIME 131 sec TEST ED AT [place] [address] (BEAKER) (test code = SPENCER [place] [facility] 441) [address] BLOOD GAS, [id number] 17:15:00 Test Item Value Reference Range Interpretation [...] code = 1819) 30.0 % SODIUM NA-STAT [id number] 17:15:00 Test Item Value Reference Range Interpretation Comments SODIUM (BEAKER) (test code = 381) 132 meq/L 135-148 L HGB/HCT (H&H) - STAT [id number] 17:15:00 Test Item Value Reference Range Interpretation Comments HEMOGLOBIN (BEAKER) (test code = 11.2 g/dL 13.0-16.8 L 410) HEMATOCRIT (BEAKER) (test code = 33.0 % 40.0-50.0 L 411) GLUCOSE-STAT [id number] 17:14:00 Test Item Value Reference Range Interpretation Comments GLUCOSE RANDOM (BEAKER) (test code 104 mg/dL 70-110 = 652) POTASSIUM-STAT [id number] 17:14:00 Test Item Value Reference Range Interpretation Comments POTASSIUM (BEAKER) (test code = 4.1 meq/L 3.6-5.5 379) [id number] 17:11:00 Test Item Value Reference Range Interpretation Comments ACTIVATED CLOTTING TIME 268 sec TEST ED AT [facility] [address] (BEAKER) (test code = [place] [facility] 441) [address] [id number] 16:12:00 Test Item Value Reference Range Interpretation Comments ACTIVATED CLOTTING TIME 257 sec TEST ED AT [facility] [address] (BEAKER) (test code = [place] 441) [address] BASIC METABOLIC [id number] 07:04:00 Test Item Value Reference Range Interpretation [...] code = 413) URINALYSIS W/ REFLEX URINE [id number] 13:29:00 Test Item Value Reference Range Interpretation [...] SOURCE(BEAKER) (test code = 2795) BASIC METABOLIC [id number] 06:55:00 Test Item Value Reference Range Interpretation [...] 0-0 (BEAKER) (test code = 413) POCT-GLUCOSE [id number] 18:09:00 Test Item Value Reference Range Interpretation Comments POC-GLUCOSE METER 99 mg/dL 70-110 TESTED AT [facility] [address] [facility] (test code = [place] [address] 1538) POCT-GLUCOSE [id number] 13:47:00 Test Item Value Reference Range Interpretation Comments POC-GLUCOSE METER 144 mg/dL 70-110 H TESTED AT [facility] [address] (BEAKER) (test code = [place] 1538) [address] U/S, [id number] 11:20:00Laterality?->Left Reason for exam:->left sided pleural effusion [...] Thoracentesis is therefore not performed. Signed: Brett Guardadoeport Verified Date/Time: 09/23/2018 11:20:35 Reading Location: [address] Ortho Consult Reading Room PROTHROMBIN [id number] 05:40:00 Test Item Value Reference Range Interpretation Comments PROTIME (BEAKER) (test code = 14.7 seconds 11.7-14.7 759) INR (BEAKER) (test code = 370) 1.2 <=5.9 RECOMMENDED COUMADIN/WARFARIN INR THERAPY RANGESSTANDARD DOSE: 2.0 - 3.0 Includes: PROPHYLAXIS forvenous thrombosis, systemic embolization; TREATMENT for venous thrombosis and/or pulmonary embolus.HIGH RISK: Target INR is 2.5-3.5 for patients with mechanical heart valves.[id number] 05:40:00 Test Item Value Reference Range Interpretation Comments PARTIAL THROMBOPLASTIN TIME 31.6 seconds 22.5-36.0 (BEAKER) (test code = 760) [id number] 05:21:00 Test Item Value Reference Range Interpretation Comments MAGNESIUM (BEAKER) (test code = 1.6 mg/dL 1.6-2.6 627) BASIC METABOLIC [id number] 05:21:00 Test Item Value Reference Range Interpretation [...] S NOT APPLICABLE FOR DIALYSIS PATIEN TS. [id number] 05:20:00 Test Item Value Reference Range Interpretation Comments MAGNESIUM (BEAKER) (test code = 1.5 mg/dL 1.6-2.6 L 627) BASIC METABOLIC [id number] 05:20:00 Test Item Value Reference Range Interpretation [...] PATIEN TS. CBC W/PLT COUNT & AUTO [id number] 05:02:00 Test Item Value Reference Range Interpretation [...] 0-0 (BEAKER) (test code = 413) POCT-GLUCOSE [id number] 21:35:00 Test Item Value Reference Range Interpretation Comments POC-GLUCOSE METER 133 mg/dL 70-110 H TESTED AT [facility] [address] (BEAKER) (test code = [place] 1538) [address] POCT-GLUCOSE [id number] 17:37:00 Test Item Value Reference Range Interpretation Comments POC-GLUCOSE METER 147 mg/dL 70-110 H TESTED AT [facility] [address] (BEAKER) (test code = [place] 1538) [address] [id number] 17:19:00 Test Item Value Reference Range Interpretation Comments MAGNESIUM (BEAKER) (test code = 1.5 mg/dL 1.6-2.6 L 627) BASIC METABOLIC [id number] 17:19:00 Test Item Value Reference Range Interpretation [...] NOT APPLICABLE FOR DIALYSIS PATIEN TS. POCT-GLUCOSE [id number] 13:08:00 Test Item Value Reference Range Interpretation Comments POC-GLUCOSE METER 106 mg/dL 70-110 TESTED AT [facility] [address] ([facility]) (test code = [facility] [employer]ar [facility] 1538) [address] POCT-GLUCOSE [id number] 21:49:00 Test Item Value Reference Range Interpretation Comments POC-GLUCOSE METER 116 mg/dL 70-110 H TESTED AT [facility] [address] ([facility]) (test code = [facility] 1538) [address] POCT-GLUCOSE [id number] 17:56:00 Test Item Value Reference Range Interpretation Comments POC-GLUCOSE METER 142 mg/dL 70-110 H TESTED AT [facility] [address] ([facility]) (test code = [facility] 1538) [address] CT, CTA, [id number] 14:55:00Addendum BeginsREPORT STATUS:A Addendum:There is increased density visualized in the left pleural fluid collection. Clinical correlation is needed if an inflammatory or hemorrhag ic process is suspected.I agree with the previously described non vascular findings. Signed: Shirlene Ackerman MDReport Verified Date/Time: 09/21/2018 14:55:20 Reading Location: [facility] P048 Angio Body Reading RoomAddendum EndsFINAL REPORT CT [...] have increased ca lcific atherosclerosis seen with zcnf-lf-lxyqfznw lesion identified. The right common femoral arteryis [...] For reference purpose, per [employer] brojammie, recommendation are as follows: CT perimeter between [...] An addendum will be dictated by the Vfx Artist Radiologist regarding the nonvascular findings. Signed: Shawn Barnes Verified Date/Time: 09/21/2018 14:01:54 Reading Location: [place] [id number] Cardiology MRI CT, CTA [id number] 14:55:00 Addendum BeginsREPORT STATUS:A Addendum:There is increased density visualized in the left pleural fluid collection. Clinical correlation is needed if an inflammatory or hemorrhagic process is suspected.I agree with the previously described non vascular findings. Signed: Shirlene Ackerman Verified Date/Time: 09/21/2018 14:55:20 Reading Location: [place] [id number] Angio Body Reading RoomAddendum EndsFINAL REPORT CT [...] artery have increased calcific atherosclerosis seen with rmlo-eo-swxlwruh lesion identified. The right common femoral arteryis [...] An addendum will be dictated by the Vfx Artist Radiologist regarding the nonvascular findings. Signed: Shawn Barnes Verified Date/Time: 09/21/2018 14:01:54 Reading Location: [place] [address] Cardiology MRI BASI METABOLIC [id number] 07:01:00 Test Item Value Reference Range Interpretation [...] mg/dL 8.4-10.2 (test code = 697) EGFR ([facility]) (test 67 mL/min/1.73 ESTIMA RUTH GFR IS code = 1092) sq m NOT ACCURATE CREATININE CLEARANCE IN PREDICTING GLOMERULAR FILTRATION RATE . ESTIMATED GFR I S NOT APPLICABLE FOR DIALYSIS PATIEN TS. POCT-GLUCOSE [id number] 22:18:00 Test Item Value Reference Range Interpretation Comments POC-GLUCOSE METER 176 mg/dL 70-110 H TESTED AT [place] [address] ([facility]) (test code = [facility] Skylar [facility] 1538) [address] RAD, CHEST, 1 VIEW, NON [id number] 20:32:00Reason for exam:->SOBShould this be performed at [...] Rueda Verified Date/Time: 09/20/2018 20:32:40 Reading Location: [facility] Radiology Reading Room POCT- GLUCOSE [id number] 17:05:00 Test Item Value Reference Range Interpretation Comments POC-GLUCOSE METER 164 mg/dL 70-110 H TESTED AT [place] [address] ([facility]) (test code = [facility] Skylar [facility] 1538) [address] POCT-GLUCOSE [id number] 13:55:00 Test Item Value Reference Range Interpretation Comments POC-GLUCOSE METER 105 mg/dL 70-110 TESTED AT [place] [address] ([facility]) (test code = [facility] Skylar [facility] 1538) [address] POCT-GLUCOSE [id number] 09:01:00 Test Item Value Reference Range Interpretation Comments POC-GLUCOSE METER 116 mg/dL 70-110 H TESTED AT [place] [address] ([facility]) (test code = SPENCER Cheng [facility] 1538) [address] BASIC METABOLIC [id number] 05:36:00 Test Item Value Reference Range Interpretation [...] NOT APPLICABLE FOR DIALYSIS PATIEN TS. POCT-GLUCOSE [id number] 23:13:00 Test Item Value Reference Range Interpretation Comments POC-GLUCOSE METER 119 mg/dL 70-110 H TESTED AT [place] [address] ([facility]) (test code = [facility] 1538) [address] POCT-GLUCOSE [id number] 18:21:00 Test Item Value Reference Range Interpretation Comments POC-GLUCOSE METER 155 mg/dL 70-110 H TESTED AT [place] [address] ([facility]) (test code = [facility] 1538) [address] HEMOGLOBIN [id number] 12:52:00 Test Item Value Reference Range Interpretation Comments HEMOGLOBIN A1C (BEAKER) (test code = 6.4 % 4.3-6.1 H 368) POCT-GLUCOSE [id number] 09:22:00 Test Item Value Reference Range Interpretation Comments POC-GLUCOSE METER 99 mg/dL 70-110 TESTED AT [place] [address] ([facility]) (test code = [facility] [address] 1538) BASIC METABOLIC [id number] 06:48:00 Test Item Value Reference Range Interpretation [...] NOT APPLICABLE FOR DIALYSIS PATIEN TS. TROPONIN [id number] 06:46:00 Test Item Value Reference Range Interpretation [...] PERCENT (BEAKER) (test code = 2801) TROPONIN [id number] 01:37:00 Test Item Value Reference Range Interpretation [...] (BEAKER) (test code = 700) COMPREHENSIVE METABOLIC [id number] 18:56:00 Test Item Value Reference Range Interpretation [...] PATIEN TS. CBC W/PLT COUNT & AUTO [id number] 18:35:00 Test Item Value Reference Range Interpretation [...] PERCENT (BEAKER) (test code = 2801) POCT-GLUCOSE [id number] 17:14:00 Test Item Value Reference Range Interpretation Comments POC-GLUCOSE METER 172 mg/dL 70-110 H TESTED AT [facility] ([facility] (test code = [place] 1538) [address]
[2021-09-13 02:53] LABS: Absolute Lymphocytes (CBC) 1.5 K/uL (0.7-4.9); Basophils % 0.5 % (0-1.3); Lymphocytes % 13.7 % (15.3-44.8); MPV 7.9 fL (7.6-11.3); RBC Red Blood Cell Count 3.87 M/uL (4.33-5.43)
[2021-09-13 02:57] LABS: Protime INR 1.22
[2021-09-13 03:39] LABS: ALT/SGPT 75 U/L (12-78); AST/SGOT 57 U/L (15-37); Albumin 3.2 g/dL (3.4-5.0); Alkaline Phosphatase 129 U/L (45-117); BUN Blood Urea Nitrogen 29 mg/dL (7-18); Bicarbonate 23 mmol/L (21-32); Bilirubin Direct 0.2 mg/dL (0-0.2); Bilirubin Total 0.8 mg/dL (0.2-1.0); Glucose Level 102 mg/dL (74-106); NT PRO-BNP 2167 pg/mL (<450); Protein, Total 6.8 g/dL (6.4-8.2); Sodium Level 136 mmol/L (136-145); Troponin (Emerg Dept Use Only) < 0.02 ng/mL (0.0-0.045)
[2021-09-13 03:40] LABS: Magnesium 2.1 mg/dL (1.8-2.4); Potassium 4.6 mmol/L (3.5-5.1)
[2021-09-13 03:41] LABS: SARS-COV-2 RT PCR NEGATIVE (NEGATIVE)
[2021-09-13] MEDS ORDERED: FUROSEMIDE 40 MG/4 ML VIAL ONE (04:35)
--- NOTE | 2021-09-13 04:41 | EDPHYS ---
Physician Documentation [facility] Name: Jeb Lubin Age: 81 yrs Sex: Male : 1940 Arrival Date: 09/13/2021 Time: 02:11 Bed 4 Private MD: ED Physician Cornelio Maravilla HPI: 09/13 02:37 This 81 yrs old Male presents to ER via EMS with complaints of Breathing Difficulty. mh7 02:37 The patient has shortness of breath at rest. Onset: The symptoms/episode began/occurred mh7 last night, at 21:00. Duration: The symptoms are intermittent, with no pattern. The patient's shortness of breath is aggravated by coughing, is alleviated by nothing. Associated signs and symptoms: Pertinent positives: productive cough, Pertinent negatives: chest pain, diaphoresis, dizziness, fever, hemoptysis, loss of consciousness, nausea, numbness in extremities, visual changes, vomiting. Severity of symptoms: At their worst the symptoms were moderate last night, in the emergency department the symptoms have improved moderately. Historical: - Allergies: 02:18 PENICILLINS; tw5 02:18 Xarelto; tw5 - PMHx: 02:18 Atrial Fib; Diabetes - NIDDM; Hypertension; polio; as a kid; tw5 - PSHx: 02:18 Coronary artery bypass graft; heart valve replacement; tw5 - Immunization history:: Flu vaccine is up to date. - Social history:: Smoking status: Patient/guardian denies using tobacco, the patient reports quitting approximately 20 years ago. ROS: 02:37 Constitutional: Negative for fever, chills, and weight loss, Eyes: Negative for injury, mh7 pain, redness, and discharge, ENT: Negative for injury, pain, and discharge, Neck: Negative for injury, pain, and swelling, Cardiovascular: Negative for chest pain, palpitations, and edema, Abdomen/GI: Negative for abdominal pain, nausea, vomiting, diarrhea, and constipation, Back: Negative for injury and pain, : Negative for injury, bleeding, discharge, and swelling, MS/Extremity: Negative for injury and deformity, Skin: Negative for injury, rash, and discoloration, Neuro: Negative for headache, weakness, numbness, tingling, and seizure, Psych: Negative for depression, anxiety, suicide ideation, homicidal ideation, and hallucinations, Allergy/Immunology: Negative for hives, rash, and allergies, Endocrine: Negative for neck swelling, polydipsia, polyuria, polyphagia, and marked weight changes, Hematologic/Lymphatic: Negative for swollen nodes, abnormal bleeding, and unusual bruising. Exam: 02:37 Constitutional: This is a well developed, well nourished patient who is awake, alert, mh7 and in no acute distress. Head/Face: Normocephalic, atraumatic. Eyes: Pupils equal round and reactive to light, extra-ocular motions intact. Lids and lashes normal. Conjunctiva and sclera are non-icteric and not injected. Cornea within normal limits. Periorbital areas with no swelling, redness, or edema. Neck: Trachea midline, no thyromegaly or masses palpated, and no cervical lymphadenopathy. Supple, full range of motion without nuchal rigidity, or vertebral point tenderness. No Meningismus. Chest/axilla: Normal chest wall appearance and motion. Nontender with no deformity. No lesions are appreciated. 02:37 Abdomen/GI: Soft, non-tender, with normal bowel sounds. No distension or tympany. No guarding or rebound. No evidence of tenderness throughout. Back: No spinal tenderness. No costovertebral tenderness. Full range of motion. Skin: Warm, dry with normal turgor. Normal color with no rashes, no lesions, and no evidence of cellulitis. MS/ Extremity: Pulses equal, no cyanosis. Neurovascular intact. Full, normal range of motion. Neuro: Awake and alert, GCS 15, oriented to person, place, time, and situation. Cranial nerves II-XII grossly intact. Motor strength 5/5 in all extremities. Sensory grossly intact. Cerebellar exam normal. Normal gait. Psych: Awake, alert, with orientation to person, place and time. Behavior, mood, and affect are within normal limits. 02:37 Cardiovascular: Rate: normal, Rhythm: irregularly irregular, Pulses: no pulse deficits are appreciated, Heart sounds: normal, normal S1and S2, Edema: is not appreciated, JVD: is not appreciated. 02:37 Respiratory: the patient does not display signs of respiratory distress, Respirations: prolonged exhalation, that is mild, Breath sounds: rhonchi, that are mild, are scattered, Respiratory rate: 20 Vital Signs: 02:15 BP 165 / 77; Pulse 92; Resp 23; Temp 97.5(TE); Pulse Ox 98% on R/A; Weight 70.31 kg; tw5 Height 5 ft. 4 in. (162.56 cm); Pain 0/10; 02:50 BP 171 / 118; Pulse 90; Resp 20; Pulse Ox 99% on R/A; tw5 03:43 BP 146 / 86; Pulse 83; Resp 18 S; Pulse Ox 97% on R/A; as6 04:30 BP 154 / 80; Pulse 88; Resp 21 S; Pulse Ox 96% on R/A; as6 05:30 BP 157 / 80; Pulse 86; Resp 20 S; Pulse Ox 99% on R/A; as6 08:07 BP 145 / 86; Pulse 109; Resp 20; Temp 98.1(TE); Pulse Ox 98% ; lt3 02:15 Body Mass Index 26.61 (70.31 kg, 162.56 cm) tw5 MDM: 04:20 Differential diagnosis: Anemia Anxiety Reaction asthma, Bronchitis CHF exacerbation, 7 Chronic Obstructive Pulmonary Disease Myocardial Infarction pneumonia, Pneumothorax Psychogenic pulmonary edema, reactive airway disease. Data reviewed: vital signs, nurses notes, EMS record, old medical records, lab test result(s), cardiac enzymes, CBC, electrolytes, EKG, radiologic studies, plain films. Data interpreted: Pulse oximetry: on 2L(s) per nasal canula, is 97 %. Interpretation: acceptable. 04:37 Counseling: I had a detailed discussion with the patient and/or guardian regarding: the [facility] historical points, exam findings, and any diagnostic results supporting the discharge/admit diagnosis, the presence of at least one elevated blood pressure reading (>120/80) during this emergency department visit, lab results, radiology results, the need for further work-up and treatment in the hospital. Response to treatment: the patient's symptoms have mildly improved after treatment. 04:40 Patient medically screened. [facility] 09/13 02:35 Order name: Basic Metabolic Panel [facility] 09/13 02:35 Order name: CBC with Diff; Complete Time: 03:10 [facility] 09/13 02:35 Order name: LFT's; Complete Time: 04:10 [facility] 09/13 02:35 Order name: Magnesium; Complete Time: 04:10 [facility] 09/13 02:35 Order name: NT PRO-BNP; Complete Time: 04:10 [facility] 09/13 02:35 Order name: PT-INR; Complete Time: 03:10 [facility] 09/13 02:35 Order name: Troponin (emerg Dept Use Only); Complete Time: 04:10 [facility] 09/13 02:35 Order name: XRAY Chest (1 view); Complete Time: 04:39 09/13 02:35 Order name: EKG; Complete Time: 02:36 [facility] 09/13 02:35 Order name: Basic Metabolic Panel; Complete Time: 04:10 EDMS 09/13 02:36 Order name: COVID-19/FLU A+B (Document "Date of Onset" if Symptomatic) [facility] 09/13 02:37 Order name: COVID-19/FLU A+B; Complete Time: 04:10 EDMS 09/13 03:20 Order name: Blood Culture Adult (2) [facility] 09/13 02:35 Order name: Cardiac monitoring; Complete Time: 02:35 [facility] 09/13 02:35 Order name: EKG - Nurse/Tech; Complete Time: 02:35 09/13 02:35 Order name: IV Saline Lock; Complete Time: 02:35 09/13 02:35 Order name: Labs collected and sent; Complete Time: 02:35 09/13 02:35 Order name: O2 Per Protocol; Complete Time: 02:35 09/13 02:35 Order name: O2 Sat Monitoring; Complete Time: 02:35 7 Administered Medications: 04:39 Drug: Lasix (furosemide) 40 mg Route: IVP; Site: right forearm; as6 05:58 Follow up: Response: No adverse reaction as6 Disposition Summary: 09/13/21 04:40 Hospitalization Ordered Hospitalization Status: Inpatient Admission [facility] Provider: Alexander Sosa Julianne Condition: Stable [facility] Problem: an acute exacerbation [facility] Symptoms: have improved [facility] Bed/Room Type: Standard [facility] Location: Telemetry/MedSurg (Inpatient)(09/13/21 07:51) dw Room Assignment: [facility](09/13/21 07:51) dw Diagnosis - 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
--- NOTE | 2021-09-13 04:41 | ER ---
Nurse's Notes [facility] Name: Jeb Lubin Age: 81 yrs Sex: Male : 1940 Arrival Date: 09/13/2021 Time: 02:11 Bed 4 Private MD: Diagnosis: Acute on chronic combined systolic (congestive) and diastolic (congestive) heart failure Presentation: 09/13 02:15 Chief complaint: EMS states: He woke up short of breath. We gave him a breathing tw5 treatment, and 125 mg kate Medrol. Coronavirus screen: Vaccine status: Patient reports being unvaccinated. Ebola Screen: Patient negative for fever greater than or equal to 101.5 degrees Fahrenheit, and additional compatible Ebola Virus Disease symptoms Patient denies exposure to infectious person. Patient denies travel to an Ebola-affected area in the 21 days before illness onset. Initial Sepsis Screen: Does the patient meet any 2 criteria? RR > 20 per min. Does the patient have a suspected source of infection? No. Patient's initial sepsis screen is negative. Risk Assessment: Do you want to hurt yourself or someone else? Patient reports no desire to harm self or others. Onset of symptoms was September 12, 2021 at 23:00. 02:15 Method Of Arrival: EMS: [facility] tw5 02:15 Acuity: CECILIA 3 tw5 Triage Assessment: 02:18 General: Appears in no apparent distress. Behavior is calm, cooperative, appropriate tw5 for age. Pain: Denies pain. Respiratory: Reports shortness of breath since 11 pm last night Onset: The symptoms/episode began/occurred gradually, the patient has moderate shortness of breath. Historical: - Allergies: 02:18 PENICILLINS; tw5 02:18 Xarelto; tw5 - PMHx: 02:18 Atrial Fib; Diabetes - NIDDM; Hypertension; polio; as a kid; tw5 - PSHx: 02:18 Coronary artery bypass graft; heart valve replacement; tw5 - Immunization history:: Flu vaccine is up to date. - Social history:: Smoking status: Patient/guardian denies using tobacco, the patient reports quitting approximately 20 years ago. Screenin:20 Abuse screen: Denies threats or abuse. Denies injuries from another. Nutritional tw5 screening: No deficits noted. Tuberculosis screening: No symptoms or risk factors identified. Fall Risk No fall in past 12 months (0 pts). Secondary diagnosis (15 points) IV access (20 points). Ambulatory Aid- None/Bed Rest/Nurse Assist (0 pts). Gait-. Assessment: 02:20 General: Reports " I took my sleeping pill, but I couldn't figure out why I couldn't go tw5 to sleep. I have not slept all night, cause I was short of breath. I just couldn't breath right and it was keeping me awake. When I started wheezing I figured I better call". Cardiovascular: Rhythm is atrial fibrillation. Respiratory: Airway is patent Trachea midline Respiratory effort is even, unlabored, Breath sounds with wheezes in right upper lobe and left upper lobe. 02:50 Reassessment: Patient appears in no apparent distress at this time. No changes from tw5 previously documented assessment. Patient and/or family updated on plan of care and expected duration. Pain level reassessed. 04:30 Reassessment: pt used hand held urinal, sob on exertion. as6 05:55 Reassessment: Patient and/or family updated on plan of care and expected duration. Pain as6 level reassessed. Patient is alert, oriented x 3, equal unlabored respirations, skin warm/dry/pink. Vital Signs: 02:15 BP 165 / 77; Pulse 92; Resp 23; Temp 97.5(TE); Pulse Ox 98% on R/A; Weight 70.31 kg; tw5 Height 5 ft. 4 in. (162.56 cm); Pain 0/10; 02:50 BP 171 / 118; Pulse 90; Resp 20; Pulse Ox 99% on R/A; tw5 03:43 BP 146 / 86; Pulse 83; Resp 18 S; Pulse Ox 97% on R/A; as6 04:30 BP 154 / 80; Pulse 88; Resp 21 S; Pulse Ox 96% on R/A; as6 05:30 BP 157 / 80; Pulse 86; Resp 20 S; Pulse Ox 99% on R/A; as6 08:07 BP 145 / 86; Pulse 109; Resp 20; Temp 98.1(TE); Pulse Ox 98% ; lt3 02:15 Body Mass Index 26.61 (70.31 kg, 162.56 cm) tw5 ED Course: 02:11 Patient arrived in ED. wm 02:15 Katherine Vargas is Primary Nurse. tw5 02:17 Triage completed. tw5 02:18 Arm band placed on right wrist. tw5 02:20 Awaiting lab results. tw5 02:20 Patient has correct armband on for positive identification. Placed in gown. Bed in low tw5 position. Call light in reach. Side rails up X2. radiation monitor on. Pulse ox on. NIBP on. Door closed. Noise minimized. Moved to private room. Warm blanket given. Verbal reassurance given. 02:20 Maintain EMS IV. Dressing intact. Good blood return noted. Site clean \\T\\ dry. Gauge \\T\\ tw 5 site: 20 g Right forearm. 02:27 Cornelio Maravilla MD is Attending Physician. 7 02:50 COVID swab sent to lab. Flu and/or RSV swab sent to lab. tw5 02:51 COVID-19/FLU A+B Sent. tw5 02:51 COVID-19/FLU A+B (Document "Date of Onset" if Symptomatic) Sent. tw5 02:51 Basic Metabolic Panel Sent. tw5 02:51 CBC with Diff Sent. tw5 02:51 Basic Metabolic Panel Sent. tw5 02:51 LFT's Sent. tw5 02:51 Magnesium Sent. tw5 02:51 NT PRO-BNP Sent. tw5 02:51 PT-INR Sent. tw5 02:52 Troponin (emerg Dept Use Only) Sent. tw5 03:08 XRAY Chest (1 view) In Process Unspecified. EDMS 04:40 Alexander Sosa is Hospitalizing Provider. [facility] 08:13 No provider procedures requiring assistance completed. Patient admitted, IV remains in jl place. intact, No redness/swelling at site. Administered Medications: 04:39 Drug: Lasix (furosemide) 40 mg Route: IVP; Site: right forearm; as6 05:58 Follow up: Response: No adverse reaction as6 Outcome: 04:40 Decision to Hospitalize by Provider. 7 08:13 Admitted to Tele accompanied by ugo, via stretcher, room 411, with chart, Report jl7 called to ISMA Olsen 08:13 Condition: stable 08:13 Discharge instructions given to patient, Instructed on the need for admit, Demonstrated understanding of instructions. 09:05 Patient left the ED. jl7 Signatures: Dispatcher [employer] Becky Romero RN RN jl7 Cornelio Maravilla MD MD 7 Isela Cortez Tiffany tw5 Juan Farooq RN RN as6 Elvira Fox lt3
--- NOTE | 2021-09-13 04:56 | P.HP ---
Certification for Inpatient Patient admitted to: Inpatient With expected LOS: <2 Midnights Patient will require the following post-hospital care: None Practitioner: I am a practitioner with admitting privileges, knowledge of patient current condition, hospital course, and medical plan of care. Services: Services provided to patient in accordance with Admission requirements found in Title 42 Section 412.3 of the Code of Federal Regulations Patient History Date of Service: 09/13/21 Reason for admission: CHF exacerbation History of Present Illness: Mr. Lubin is an 81yo gentleman with CHF, CAD, HTN, HLD, afib, DM who presents with worsening SOB and PUGH beginning on Tuesday. He also reports cough, wheezing, edema, orthopnea and PND. Denies palpitations. CXR shows evidence of pulmonary edema. BUN 29 GFR 1.54 GFR 43 BNP 2167. He was admitted for a CHF exacerbation at the end of last month. He is scheduled to follow up with cardiology at the end of next week. Allergies Penicillins Allergy (Verified 03/16/21 10:58) Hives/Rash rivaroxaban [From Xarelto] Adverse Reaction (Verified 03/16/21 10:58) GI BLEED Home Medications: Ascorbic Acid [Vitamin C with Mackenzie Hips] 1,000 mg PO DAILY 10/15/20 Atorvastatin Calcium [Lipitor] 40 mg PO BEDTIME 10/15/20 Cholecalciferol (Vitamin D3) [Vitamin D 5,000 IU Cap*] 5,000 unit PO BID 10/15/20 Clopidogrel Bisulfate [Plavix*] 75 mg PO DAILY 10/15/20 Galantamine HBr [Galantamine ER] 4 mg PO BID 10/15/20 Glucosam/Rojas-Msm1/C/Ghanshyam/Bosw [Osteo Bi-Flex Caplet] 1 tab PO BID 10/15/20 Losartan Potassium [Cozaar] 100 mg PO DAILY 10/15/20 Memantine HCl [Namenda*] 10 mg PO BID 10/15/20 [place]-3 Fatty Acids/Fish Oil [Fish Oil 1,000 mg Softgel] 2 cap PO BID 10/15/20 Pantoprazole [Protonix Tab*] 40 mg PO DAILY 10/15/20 Vit A,C & E/Lutein/Minerals [Ocuvite Tablet] 1 tab PO DAILY 10/15/20 Zinc 50 mg PO DAILY 10/15/20 Coconut Oil 2 cap PO BID 03/16/21 Dorzolamide HCl/Pf [Dorzolamide 2% Eye Drop] 1 drop EACH EYE BID 03/16/21 Ferrous Gluconate 324 mg PO DAILY 03/16/21 Timolol Maleate/Pf [Timolol Maleate 0.5% Eye Drop] 1 each EACH EYE BID 03/16/21 Furosemide [Lasix] 80 mg PO DAILY 08/28/21 Multivitamin 1 each PO DAILY 08/28/21 Metoprolol Tartrate 100 mg PO BID #60 tablet 08/31/21 - Past Medical/Surgical History Diabetic: No -: HTN -: High Cholesterol -: Vascular Dementia -: CABG -: Diabetes mellitus type 2 -: CAD -: polio during childhood -: A. Fib -: Triple Bypass -: Aortic Valve Replacement-bovine Psychosocial/ Personal History: Patient currently lives at home alone - Family History Brother -: Heart disease, Other (see notes) Notes: [place] Father -: Heart disease Mother -: Heart disease - Social History Smoking Status: Unknown if ever smoked Alcohol use: Yes CD- Drugs: No Caffeine use: Yes Place of Residence: Home Review of Systems 10-point ROS is otherwise unremarkable General: Unremarkable Eyes: Unremarkable ENT: Unremarkable Respiratory: Cough, Shortness of Breath, SOB with Excertion, Wheezing, As per HPI Cardiovascular: Orthopnea, Paroxysmal Noc. Dyspnea, Edema, As per HPI Gastrointestinal: Unremarkable Genitourinary: Unremarkable Musculoskeletal: Unremarkable Integumentary: Unremarkable Neurological: Unremarkable Lymphatics: Unremarkable Physical Examination - Physical Exam General: Alert, In no apparent distress HEENT: Atraumatic, PERRLA, Mucous membr. moist/pink, EOMI, Sclerae nonicteric Neck: Supple, 2+ carotid pulse no bruit, No LAD, Without JVD or thyroid abnormality Respiratory: Normal air movement, Crackles/rales Cardiovascular: Normal S1 S2, Edema, Irregular heart rate/rhythm Gastrointestinal: Normal bowel sounds, No tenderness Musculoskeletal: No tenderness Integumentary: No rashes Neurological: Normal speech, Normal strength at 5/5 x4 extr, Normal tone, Normal affect Lymphatics: No axilla or inguinal lymphadenopathy - Studies Laboratory Data (last 24 hrs) 09/13/21 02:38: PT 14.1 H, INR 1.22 09/13/21 02:38: WBC 10.80, Hgb 11.9 L, Hct 36.0 L, Plt Count 279 09/13/21 02:38: Sodium 136, Potassium 4.6, BUN 29 H, Creatinine 1.54 H, Glucose 102, Magnesium 2.1, Total Bilirubin 0.8, AST 57 H, ALT 75, Alkaline Phosphatase 129 H Assessment and Plan - Problems (Diagnosis) (1) Atrial fibrillation, new onset Onset Date: 09/08/18 Current Visit: No Status: Chronic (2) CAD (coronary artery disease) Onset Date: 09/08/18 Current Visit: No Status: Chronic Qualifiers: Coronary Disease-Associated Artery/Lesion type: bypass graft [place] vs. transplanted heart: [place] heart Associated angina: without angina Qualified Code(s): I25.810 - Atherosclerosis of coronary artery bypass graft(s) without angina pectoris (3) CHF exacerbation Current Visit: No Status: Acute Qualifiers: Heart failure type: unspecified Qualified Code(s): I50.9 - Heart failure, unspecified (4) Diabetes mellitus Onset Date: 09/08/18 Current Visit: No Status: Chronic Qualifiers: Diabetes mellitus type: type 2 Diabetes mellitus care home insulin use: without termite control technician use Diabetes mellitus complication status: with kidney complications Diabetes mellitus complication detail: with chronic kidney disease Chronic kidney disease stage 3 subtype: stage 3b (GFR 30-44) (5) Hypertension, essential Onset Date: 09/08/18 Current Visit: No Status: Chronic - Plan continue IV Lasix BID daily weights, fluid restrict 1500cc daily, O2 and breathing treatments as needed monitor kidney function for improvement reconcile and continue home medications DVT ppx Discharge Plan: Home Plan to discharge in: 48 Hours - Advance Directives Does patient have a Living Will: Yes Does patient have a Durable POA for Healthcare: No - Code Status/Comfort Care Code Status Assessed: Yes (full code ) Critical Care: No Time Spent Managing Pts Care (In Minutes): 70
--- NOTE | 2021-09-13 08:14 | RAD REPORT ---
EXAM DESCRIPTION: RAD - Chest Single View - 09/13/2021 3:08 am CLINICAL HISTORY: Cough;SOB COMPARISON: No known 2019 TECHNIQUE: AP portable chest image was obtained 09/13/2021 3:08 am . FINDINGS: Lung volumes remain low. Left base pleural effusion with lung parenchymal opacification un changed. Hazy ill-defined opacification in the lateral right midlung field is identified. There is ov erlying soft tissue artifact as well. Early right upper lobe pneumonia is possible and needs correlat ion with clinical presentation. Follow-up can be obtained as warranted. Sternotomy wires are in place. Heart and vasculature are normal. No pneumothorax. No acute bony abnor mality seen. No acute aortic findings suspected. IMPRESSION: Ill-defined hazy opacification right midlung field possible a early right upper lobe pne umonia. Follow-up can be obtained as warranted. Chronic left pleural effusion with chronic lung base opacification.
[2021-09-13] MEDS ORDERED: ONDANSETRON 4 MG/2 ML VIAL IV PRN (09:17)
[2021-09-13] MEDS ORDERED: ACETAMINOPHEN 500 MG TAB PO PRN (09:17)
[2021-09-13 09:52] VITALS: BMI 25.7
[2021-09-13] MEDS: ENOXAPARIN 40 MG/0.4 ML SQ SCH (10:45)
[2021-09-13] MEDS: FUROSEMIDE 40 MG/4 ML VIAL IV SCH ×2 (10:45→16:31)
[2021-09-13] MEDS ORDERED: HOME MED 1 EA UNK (Metoprolol Tartrate [Metoprolol Tartrate] 100 MG Tablet) PO SCH (15:13)
--- NOTE | 2021-09-13 15:23 | P.PN ---
Date of Service: 09/13/21 Patient seen and examined. He states he feels much better. He is tolerating room air with good oxygen saturation. Diagnosis: Acute on chronic diastolic heart failure. Atrial fibrillation. Plan: IV Lasix. Resume home dose metoprolol. Continue Plavix. Monitor and optimize electrolytes.
[2021-09-13] MEDS: PANTOPRAZOLE 40MG TABLET PO SCH (16:30)
[2021-09-13] MEDS: METOPROLOL TAR 50 MG TAB PO SCH ×2 (16:31→20:54)
[2021-09-13] MEDS: CLOPIDOGREL 75 MG TABLET PO SCH (16:31)
[2021-09-13] MEDS: DOCOSAHEXANOIC AC/EPA 1000 MG PO SCH (20:53)
[2021-09-13] MEDS: MEMANTINE HCL 10 MG TABLET PO SCH (20:53)
[2021-09-13] MEDS: ATORVASTATIN 40 MG TAB PO SCH (20:54)
[2021-09-13] MEDS: VITAMIN D 5,000 UNIT CAP PO SCH (20:55)
[2021-09-13] MEDS: GALANTAMINE HBR 8 MG PO SCH (20:56)
[2021-09-13] MEDS: OSTEO BI-FLEX PO SCH (20:56)
[2021-09-13] MEDS ORDERED: TIMOLOL MALEATE 0.5% OPTH 5 ML BTL EACH EYE SCH (21:00)
[2021-09-13] MEDS ORDERED: DORZOLAMIDE 2% OPTH (10 ML) EACH EYE SCH (21:00)
[2021-09-13] MEDS ORDERED: METOPROLOL TAR 50 MG TAB PO SCH (21:00)
[2021-09-14] MEDS ORDERED: Levofloxacin 750mg IV 750 MG/150 ML BAG IV SCH (01:00)
[2021-09-14 04:07] LABS: Absolute Lymphocytes (CBC) 1.3 K/uL (0.7-4.9); Basophils % 0.4 % (0-1.3); Hematocrit 32.2 % (39.6-49.0); Lymphocytes % 9.3 % (15.3-44.8); MPV 7.4 fL (7.6-11.3); RBC Red Blood Cell Count 3.51 M/uL (4.33-5.43)
[2021-09-14 04:35] LABS: Bilirubin Total 0.5 mg/dL (0.2-1.0); Magnesium 2.1 mg/dL (1.8-2.4); Phosphorus 3.8 mg/dL (2.5-4.9); Potassium 4.1 mmol/L (3.5-5.1); Protein, Total 6.3 g/dL (6.4-8.2); Thyroid Stimulating Hormone 1.3 uIU/mL (0.360-3.740)
[2021-09-14] MEDS: OCUVITE (VIT A,C & E/LUTEIN/MINERAL) TABLET PO SCH (08:52)
[2021-09-14] MEDS: ASCORBIC ACID 500 MG TABLET PO SCH (08:52)
[2021-09-14] MEDS: ENOXAPARIN 40 MG/0.4 ML SQ SCH (08:52)
[2021-09-14] MEDS: CLOPIDOGREL 75 MG TABLET PO SCH (08:52)
[2021-09-14] MEDS: MEMANTINE HCL 10 MG TABLET PO SCH ×2 (08:52→21:08)
[2021-09-14] MEDS: MULTIVIT W/ MINERAL TAB PO SCH (08:52)
[2021-09-14] MEDS: ZINC SULFATE 220 MG CAP PO SCH (08:52)
[2021-09-14] MEDS: PANTOPRAZOLE 40MG TABLET PO SCH (08:52)
[2021-09-14] MEDS: VITAMIN D 5,000 UNIT CAP PO SCH ×2 (08:53→21:08)
[2021-09-14] MEDS: DOCOSAHEXANOIC AC/EPA 1000 MG PO SCH ×2 (08:53→21:07)
[2021-09-14] MEDS: LOSARTAN POTASSIUM 50 MG TABLET PO SCH (08:53)
[2021-09-14] MEDS: METOPROLOL TAR 50 MG TAB PO SCH ×2 (08:53→21:08)
[2021-09-14] MEDS: OPTH OPTH SCH ×2 (08:54→21:00)
[2021-09-14] MEDS: TRUSOPT 2% OPTH SCH ×2 (08:54→21:00)
[2021-09-14] MEDS: GALANTAMINE HBR 8 MG PO SCH (08:54)
[2021-09-14] MEDS: TIMOLOL OPTH SCH ×2 (08:54→21:00)
[2021-09-14] MEDS: OSTEO BI-FLEX PO SCH ×2 (08:54→21:09)
[2021-09-14] MEDS ORDERED: HOME MED 1 EA UNK (Losartan Potassium [Losartan Potassium] 100 MG Tablet) PO SCH (09:00)
[2021-09-14] MEDS: FUROSEMIDE 40 MG/4 ML VIAL IV SCH ×2 (09:03→16:37)
[2021-09-14] MEDS: FERROUS GLUCONATE 324 MG TAB PO SCH (09:08)
[2021-09-14] MEDS ORDERED: VANCOMYCIN 1.5 GM in NA CHLORIDE 0.9% 500 ML IVPB ONE (12:00)
--- NOTE | 2021-09-14 16:40 | P.PN ---
Subjective Date of Service: 09/14/21 Chief Complaint: CHF exacerbation Patient states he is feeling better today. States his breathing is better. He denies shortness of breath. Anaerobic and aerobic blood culture bottles growing gram-positive cocci in clusters. Slight increase in leukocytosis. Physical Examination - Vital Signs Temperature: 97.6 F Blood Pressure: 141/90 Pulse: 78 Respirations: 18 Pulse Ox (%): 98 - Physical Exam General: Alert, In no apparent distress, Oriented x3 HEENT: Mucous membr. moist/pink Neck: JVD not distended Respiratory: Clear to auscultation bilaterally, Normal air movement Cardiovascular: No edema, Normal S1 S2, Irregular heart rate/rhythm Gastrointestinal: Soft and benign, Non-distended, No tenderness Musculoskeletal: No swelling, No tenderness Integumentary: No rashes, No erythema Neurological: Normal speech, Normal strength at 5/5 x4 extr - Studies Microbiology Data (last 24 hrs): 09/13/21 03:20 Blood - Blood Blood Culture Gram Stain - Final 09/13/21 03:20 Blood - Blood Gram Stain - Final 09/13/21 03:39 Blood - Blood Blood Culture Gram Stain - Final 09/13/21 03:39 Blood - Blood Gram Stain - Final Assessment And Plan - Current Problems (Diagnosis) (1) Acute on chronic diastolic heart failure Current Visit: Yes Status: Acute (2) Chronic atrial fibrillation Current Visit: Yes Status: Acute (3) Pneumonia Current Visit: Yes Status: Acute (4) Gram-positive bacteremia Current Visit: Yes Status: Acute (5) Diabetes mellitus Onset Date: 09/08/18 Current Visit: No Status: Chronic Qualifiers: Diabetes mellitus type: type 2 Diabetes mellitus group home insulin use: without bed bug exterminator use Diabetes mellitus complication status: with kidney complications Diabetes mellitus complication detail: with chronic kidney disease Chronic kidney disease stage 3 subtype: stage 3b (GFR 30-44) (6) Dementia Current Visit: Yes Status: Acute - Plan Patient appears compensated for CHF. Transition IV Lasix to home dose oral Lasix. Continue antibiotics for pneumonia. Added vancomycin due blood culture positive for gram-positive cocci. Follow blood culture result. Repeat blood cultures. Continue home medications for dementia, hypertension, chronic atrial fibrillation and coronary artery disease. I spoke to the daughter who prefers patient disposition home with home health. PT to evaluate.
[2021-09-14] MEDS ORDERED: BISACODYL E.C. 5 MG TAB PO PRN (19:36)
[2021-09-14] MEDS: ATORVASTATIN 40 MG TAB PO SCH (21:08)
[2021-09-15] MEDS: METOPROLOL TAR 50 MG TAB PO SCH ×2 (04:13→21:40)
[2021-09-15 04:52] LABS: Absolute Lymphocytes (CBC) 1.3 K/uL (0.7-4.9); Basophils % 0.8 % (0-1.3); Hematocrit 32.7 % (39.6-49.0); Lymphocytes % 9.4 % (15.3-44.8); MPV 7.4 fL (7.6-11.3); RBC Red Blood Cell Count 3.54 M/uL (4.33-5.43)
[2021-09-15 05:09] LABS: C-Reactive Protein 8.77 mg/L (<3.00); Potassium 3.9 mmol/L (3.5-5.1)
--- NOTE | 2021-09-15 06:29 | P.PN ---
Date of Service: 09/15/21 Subjective: no acute events overnight, reports continuing to slowly improve no new complaints no BM in a few days, +flatus ROS: as noted above, otherwise negative Physical Exam General: Alert, In no apparent distress, Oriented x2 Respiratory: diminished bilaterally, nonlabored on RA Cardiovascular: trace edema, Normal S1 S2, Irregular heart rate/rhythm Gastrointestinal: Soft and benign, Non-distended, No tenderness Integumentary: No rashes, No erythema Neurological: Normal speech, Normal strength at 5/5 x4 extr Problem List acute hypoxemic respiratory failure Acute on chronic diastolic heart failure Pneumonia Gram positive bacteremia DM2, non-insulin dependent Dementia CAD s/p CABG Afib HTN improving, transitioned to PO lasix continue empiric antibiotic coverage with levaquin for pneumonia, on vancomycin for gram+ bacteremia ID consulted no clear source for gram+ bacteremia, ?pneumonia f/u repeat blood cultures continue home meds for chronic medical problems - HTN, dementia, afib, CAD Cardiology consulted family concerned with h/o AOVR echo ordered Dispo: anticipate dc in ~2 days, may need SNF, pending antibiotic recommendations lives home alone, daughter checks on patient Time Spent Managing Pts Care (In Minutes): 35
[2021-09-15] MEDS ORDERED: POTASSIUM CL SA 10 MEQ TAB PO ONE (06:54)
[2021-09-15] MEDS: FERROUS GLUCONATE 324 MG TAB PO SCH (08:46)
[2021-09-15] MEDS: PANTOPRAZOLE 40MG TABLET PO SCH (08:46)
[2021-09-15] MEDS: FUROSEMIDE 40 MG TABLET PO SCH (08:46)
[2021-09-15] MEDS: ASCORBIC ACID 500 MG TABLET PO SCH (08:46)
[2021-09-15] MEDS: DOCOSAHEXANOIC AC/EPA 1000 MG PO SCH ×2 (08:47→21:40)
[2021-09-15] MEDS: MEMANTINE HCL 10 MG TABLET PO SCH ×2 (08:47→21:43)
[2021-09-15] MEDS: LOSARTAN POTASSIUM 50 MG TABLET PO SCH (08:47)
[2021-09-15] MEDS: OCUVITE (VIT A,C & E/LUTEIN/MINERAL) TABLET PO SCH (08:47)
[2021-09-15] MEDS: MULTIVIT W/ MINERAL TAB PO SCH (08:47)
[2021-09-15] MEDS: CLOPIDOGREL 75 MG TABLET PO SCH (08:47)
[2021-09-15] MEDS: VITAMIN D 5,000 UNIT CAP PO SCH ×2 (08:47→21:42)
[2021-09-15] MEDS: ENOXAPARIN 40 MG/0.4 ML SQ SCH (08:47)
[2021-09-15] MEDS: ZINC SULFATE 220 MG CAP PO SCH (08:47)
[2021-09-15] MEDS: OSTEO BI-FLEX PO SCH ×2 (08:48→21:41)
[2021-09-15] MEDS: TRUSOPT 2% OPTH SCH ×2 (08:49→21:00)
[2021-09-15] MEDS: TIMOLOL OPTH SCH ×2 (08:49→21:00)
[2021-09-15] MEDS: OPTH OPTH SCH ×2 (08:49→21:00)
--- NOTE | 2021-09-15 11:10 | P.CNS ---
Date of Consult: 09/15/21 Chief Complaint: CHF exacerbation History of Present Illness: Patient is an 79-year-old male with a past medical history of CHF, CAD, hypertension, hyperlipidemia, AFib, diabetes, and aortic valve replacement who presented to the emergency department secondary to shortness of breath and dyspnea on exertion. Patient states that his symptoms 1st began on Tuesday. Chest x-ray showed left lower lobe consolidation, however daughter was present at bedside and states that this is a chronic finding. Infectious disease has been consulted as the patient had positive blood cultures obtained on 09/13. Consider in 4/ bottles. Repeat cultures pending. Patient empirically placed on vancomycin. Patient also on Levaquin for possible left lower lobe pneumonia patient currently denies nausea/vomiting/diarrhea/shortness breast/chest pain. Allergies Penicillins Allergy (Verified 03/16/21 10:58) Hives/Rash rivaroxaban [From Xarelto] Adverse Reaction (Verified 03/16/21 10:58) GI BLEED Home Medications: Acetaminophen [Tylenol] 2 tab PO PRN PRN 09/13/21 Ascorbic Acid [Vitamin C with Mackenzie Hips] 1 tab PO DAILY 09/13/21 Atorvastatin Calcium [Lipitor] 40 mg PO BEDTIME 09/13/21 Cholecalciferol (Vitamin D3) [Vitamin D3] 5,000 units PO BID 09/13/21 Clopidogrel Bisulfate [Plavix] 75 mg PO DAILY 09/13/21 Coconut Oil 1 tab PO BID 09/13/21 Dorzolamide HCl [Trusopt] 1 drop EACH EYE BID 09/13/21 Ferrous Gluconate 1 tab PO DAILY 09/13/21 Furosemide 1 tab PO DAILY 09/13/21 Galantamine HBr [Galantamine ER] 4 mg PO BID 09/13/21 Glucosamine/Chondr Villar[place] A Sod [Osteo Bi-Flex Caplet] 1 tab PO BID 09/13/21 Losartan Potassium 1 tab PO DAILY 09/13/21 Memantine HCl 1 tab PO BID 09/13/21 Metoprolol Tartrate 100 mg PO BID 09/13/21 Multivit-Minerals/FA/Lycopene [One Daily Tablet] 1 tab PO DAILY 09/13/21 [place]-3 Fatty Acids [[place]-3] 1 tab PO BID 09/13/21 Pantoprazole [Protonix Tab*] 1 tab PO DAILY 09/13/21 Timolol Maleate/Pf [Timolol Maleate 0.5% Eye Drop] 1 drop EACH EYE BID 09/13/21 Vit A,C & E/Lutein/Minerals [Ocuvite Tablet] 1 tab PO DAILY 09/13/21 Zinc 1 tab PO DAILY 09/13/21 - Past Medical/Surgical History Diabetic: No -: HTN -: High Cholesterol -: Vascular Dementia -: CABG -: Diabetes mellitus type 2 -: CAD -: polio during childhood -: A. Fib -: Triple Bypass -: Aortic Valve Replacement-bovine Psychosocial/ Personal History: Patient currently lives at home alone - Family History Brother Medical History: Heart disease, Other (see notes) Notes: [place] Father Medical History: Heart disease Mother Medical History: Heart disease - Social History Smoking Status: Former smoker Alcohol use: No CD- Drugs: No Caffeine use: Yes Place of Residence: Home Review of Systems 10-point ROS is otherwise unremarkable Physical Examination Temp Pulse Resp BP Pulse Ox 98.2 F 94 H 20 140/92 H 100 09/15/21 08:00 09/15/21 08:46 09/15/21 08:00 09/15/21 08:46 09/15/21 08:00 General: Alert, In no apparent distress HEENT: Atraumatic, Normocephalic Neck: Supple, 2+ carotid pulse no bruit Respiratory: Clear to auscultation bilaterally, Normal air movement Cardiovascular: No edema, Irregular heart rate/rhythm Capillary refill: <2 Seconds Gastrointestinal: Normal bowel sounds, Soft and benign Musculoskeletal: No clubbing, No contractures, Other (Mild lower extremity trace edema) Integumentary: No rashes, No breakdown, No significant lesion, No tenderness/swelling, No erythema Neurological: Normal gait, Normal speech, Normal tone Conclusions/Impression: Antibiotics: Vancomycin Start: 09/16 Indication: CONs bacteremia Levaquin Start: 09/14 Indication: Left lower lobe pneumonia Assessment/plan Bacteremia and Blood cultures obtained on 09/13 grew coagulase-negative Staphylococcus in 4/4 bottles. Repeat cultures obtained on 09/14 pending. Due to patient's AH in history the aortic valve replacement, recommend treating for 2 weeks of antibiotic therapy following a negative blood culture report. Continue with vancomycin. Vancomycin trough pending. Recommend maintaining a trough between 12-17. Continue to monitor renal function. Left lower lobe pneumonia on Continue a Levaquin. Recommend treating for 5-7 days. Pulmonology on board. GAURAV CHF exacerbation Anemia -medical management per primary team -plan of care discussed with Thank you for consultation
[2021-09-15] MEDS: DOCUSATE NA 100 MG CAP PO SCH ×2 (14:00→21:41)
[2021-09-15] MEDS: ATORVASTATIN 40 MG TAB PO SCH (21:41)
[2021-09-16] MEDS: VANCOMYCIN 1.25 GM in NA CHLORIDE 0.9% 250 ML IVPB SCH (01:39)
[2021-09-16 04:07] LABS: Hematocrit 33.8 % (39.6-49.0); MPV 7.3 fL (7.6-11.3); RBC Red Blood Cell Count 3.66 M/uL (4.33-5.43)
[2021-09-16 04:14] LABS: C-Reactive Protein 28.9 mg/L (<3.00); Potassium 3.9 mmol/L (3.5-5.1)
--- NOTE | 2021-09-16 06:06 | P.PN ---
Date of Service: 09/16/21 Subjective: improving, oxygen down to 1.5 L NC, still remains short of breath with exertion appetite is ok, no new pains, no nausea/vomiting ROS: as noted above, otherwise negative Physical Exam General: Alert, In no apparent distress, Oriented x2 Respiratory: diminished bilaterally, nonlabored on 1.5L NC Cardiovascular: trace b/l pedal edema, Irregular heart rate/rhythm Gastrointestinal: Soft and benign, Non-distended, No tenderness Integumentary: No rashes, No erythema Neurological: Normal speech, normal affect Problem List acute hypoxemic respiratory failure secondary to acute CHF exacerbation and possible pneumonia Acute on chronic diastolic heart failure Pneumonia, community acquired Gram positive bacteremia DM2, non-insulin dependent Dementia CAD s/p CABG chronic Afib HTN shortness of breath improving, O2 requirement decreasing transitioned to PO lasix continue empiric antibiotic coverage with levaquin for pneumonia, on vancomycin for gram+ bacteremia ID consulted - recommend 2 weeks IV vanc unlikely to have endocarditis, unclear if bacteremia is truly contaminant or not, gram stain was 4/4 f/u repeat blood cultures - no growth x 24hrs patient will need PICC line continue home meds for chronic medical problems - HTN, dementia, afib, CAD Cardiology consulted, echo performed, no new findings, no further recommendations at this time, no vegetation seen Dispo: anticipate dc in ~1-2 days, would benefit from SNF. briefly discussed with patient who seems open to the idea. lives home alone, daughter checks on patient needs PICC / IV antibiotics x 2 weeks total Time Spent Managing Pts Care (In Minutes): 35
--- NOTE | 2021-09-16 07:54 | RAD REPORT ---
EXAM DESCRIPTION: [place] Single View09/16/2021 7:14 am CLINICAL HISTORY: Hypoxia COMPARISON: September 13, 2021 FINDINGS: Mild right upper lobe opacities have partially resolved No change in chronic left pleural effusion The heart remains enlarged. Postsurgical changes involve chest
[2021-09-16] MEDS: TIMOLOL OPTH SCH ×2 (09:00→21:00)
[2021-09-16] MEDS: OPTH OPTH SCH ×2 (09:00→21:00)
[2021-09-16] MEDS ORDERED: ENOXAPARIN 30 MG/0.3 ML SQ SCH (09:00)
[2021-09-16] MEDS: TRUSOPT 2% OPTH SCH ×2 (09:00→21:00)
[2021-09-16] MEDS: OSTEO BI-FLEX PO SCH ×2 (09:32→20:59)
[2021-09-16] MEDS: MULTIVIT W/ MINERAL TAB PO SCH (09:33)
[2021-09-16] MEDS: PANTOPRAZOLE 40MG TABLET PO SCH (09:33)
[2021-09-16] MEDS: FERROUS GLUCONATE 324 MG TAB PO SCH (09:33)
[2021-09-16] MEDS: ASCORBIC ACID 500 MG TABLET PO SCH (09:33)
[2021-09-16] MEDS: ZINC SULFATE 220 MG CAP PO SCH (09:34)
[2021-09-16] MEDS: DOCOSAHEXANOIC AC/EPA 1000 MG PO SCH ×2 (09:34→20:59)
[2021-09-16] MEDS: FUROSEMIDE 40 MG TABLET PO SCH (09:34)
[2021-09-16] MEDS: OCUVITE (VIT A,C & E/LUTEIN/MINERAL) TABLET PO SCH (09:34)
[2021-09-16] MEDS: VITAMIN D 5,000 UNIT CAP PO SCH ×2 (09:34→20:58)
[2021-09-16] MEDS: MEMANTINE HCL 10 MG TABLET PO SCH ×2 (09:34→20:58)
[2021-09-16] MEDS: levoFLOXacin 750 MG TAB PO SCH (09:34)
[2021-09-16] MEDS: CLOPIDOGREL 75 MG TABLET PO SCH (09:34)
[2021-09-16] MEDS: DOCUSATE NA 100 MG CAP PO SCH ×2 (09:34→20:58)
[2021-09-16] MEDS: METOPROLOL TAR 50 MG TAB PO SCH ×2 (09:35→20:57)
[2021-09-16] MEDS: LOSARTAN POTASSIUM 50 MG TABLET PO SCH (09:35)
--- NOTE | 2021-09-16 11:20 | P.PN ---
Subjective Date of Service: 09/16/21 Chief Complaint: CHF exacerbation Patient seen examined at bedside, patient would like us to consult with his primary care physician Dr. Miller before placing PICC line for bacteremia treatment. I have called Dr. Miller and left a message. Review of Systems 10-point ROS is otherwise unremarkable Physical Examination - Vital Signs Temperature: 97.0 F Blood Pressure: 144/70 Pulse: 83 Respirations: 19 Pulse Ox (%): 100 - Studies Microbiology 09/13/21 03:39 Blood - Blood Aerobic Blood Culture - Preliminary 09/13/21 03:39 Blood - Blood Blood Culture Gram Stain - Final 09/13/21 03:39 Blood - Blood Anaerobic Blood Culture - Preliminary No growth in 24 hours. 09/13/21 03:39 Blood - Blood Gram Stain - Final 09/13/21 03:20 Blood - Blood Aerobic Blood Culture - Preliminary 09/13/21 03:20 Blood - Blood Blood Culture Gram Stain - Final 09/13/21 03:20 Blood - Blood Anaerobic Blood Culture - Preliminary No growth in 24 hours. 09/13/21 03:20 Blood - Blood Gram Stain - Final Microbiology Data (last 24 hrs): 09/13/21 03:39 Blood - Blood Blood Culture Gram Stain - Final 09/13/21 03:39 Blood - Blood Gram Stain - Final 09/13/21 03:20 Blood - Blood Blood Culture Gram Stain - Final 09/13/21 03:20 Blood - Blood Gram Stain - Final Assessment And Plan - Plan Physical exam: General: Alert, In no apparent distress HEENT: Atraumatic, Normocephalic Neck: Supple, 2+ carotid pulse no bruit Respiratory: Clear to auscultation bilaterally, Normal air movement Cardiovascular: No edema, Irregular heart rate/rhythm Capillary refill: <2 Seconds Gastrointestinal: Normal bowel sounds, Soft and benign Musculoskeletal: No clubbing, No contractures, Other (Mild lower extremity trace edema) Integumentary: No rashes, No breakdown, No significant lesion, No tenderness/swelling, No erythema Neurological: Normal gait, Normal speech, Normal tone Conclusions/Impression: Antibiotics: Vancomycin Start: 09/16 Indication: CONs bacteremia Levaquin Start: 09/14 Indication: Left lower lobe pneumonia Assessment/plan Bacteremia and Blood cultures obtained on 09/13 grew coagulase-negative Staphylococcus in 4/4 bottles. Repeat cultures obtained on 09/14 show no growth @24hr. Due to patient's age and history the aortic valve replacement, recommend treating for 2 weeks of antibiotic therapy following a negative blood culture report. Continue with vancomycin. Vancomycin trough obtained on 09/15 was 6.2, dose adjusted via pharmacy. Recommend maintaining a trough between 12-17. Continue to monitor renal function. Left lower lobe pneumonia Continue a Levaquin. Recommend treating for 5-7 days. Pulmonology on board. Leukocytosis: White blood cell count today 15.5, continue to monitor WBC trend. Patient remains afebrile. Procalcitonin down trending. GAURAV CHF exacerbation Anemia -medical management per primary team -plan of care discussed with Thank you for consultation
--- NOTE | 2021-09-16 13:04 | ECHO ---
HEIGHT: 5 ft 4 in WEIGHT: 150 lb 14.4 oz DATE OF STUDY: 09/15/[address]: Fernandez Rios MD 2-DIMENSIONAL: YES M.MODE: YES DOPPLER: YES COLOR FLOW: YES TDS: PORTABLE: DEFINITY: BUBBLE STUDY: DIAGNOSIS: CONGESTIVE HEART FAILURE/ ENDOCARDITIS, BACTEREMIA CARDIAC HISTORY: CATHERIZATION: SURGERY: PROSTHETIC VALVE: PACEMAKER: MEASUREMENTS (cm) DIASTOLIC (NORMALS) SYSTOLIC (NORMALS) IVSd 1.2 (0.6-1.2) LA Diam (1.9-4.0) LVEF 69% LVIDd 3.6 (3.5-5.7) LVIDs 2.2 (2.0-3.5) %FS 38% LVPWd 1.3 (0.6-1.2) Ao Diam 2.4 (2.0-3.7) 2 DIMENSIONAL ASSESSMENT: RIGHT ATRIUM: NORMAL LEFT ATRIUM: NORMAL RIGHT VENTRICLE: NORMAL LEFT VENTRICLE: NORMAL TRICUSPID VALVE: NORMAL MITRAL VALVE: MITRAL ANNULAR CALCIFICATION PULMONIC VALVE: NORMAL AORTIC VALVE: STATUS POST AORTIC VALVE REPLACEMENT PERICARDIAL EFFUSION: NONE AORTIC ROOT: NORMAL LEFT VENTRICULAR WALL MOTION: NORMAL DOPPLER/COLOR FLOW: COMMENTS: NORMAL LEFT VENTRICULAR EJECTION FRACTION AND SIZE. NORMAL AORTIC VALVE REPLACEMENT FUNCTION. NO VEGETATION. TECHNOLOGIST: JOLIE GODOY
[2021-09-16] MEDS: ATORVASTATIN 40 MG TAB PO SCH (20:58)
[2021-09-17 03:47] LABS: Absolute Lymphocytes (CBC) 1.1 K/uL (0.7-4.9); Basophils % 0.4 % (0-1.3); Hematocrit 34.4 % (39.6-49.0); Lymphocytes % 9.4 % (15.3-44.8); MPV 7.5 fL (7.6-11.3)
[2021-09-17 04:03] LABS: Magnesium 1.8 mg/dL (1.8-2.4); Potassium 3.9 mmol/L (3.5-5.1)
[2021-09-17] MEDS: IPRATROPIUM BROM 0.5MG/2.5ML NEB PRN ×2 (05:23→20:40)
[2021-09-17] MEDS: ALBUTEROL 2.5 MG/3 ML NEB SOL NEB PRN ×2 (05:23→20:40)
--- NOTE | 2021-09-17 05:55 | P.PN ---
Date of Service: 09/17/21 Subjective: Continues to slowly improve, still requiring oxygen supplementation. Patient states he has been saturating in the mid 90%, placed on oxygen tomorrow to comfort Still dyspneic on exertion. States he wants to move around more, but bed check/alarms are impeding this. Denies any dizziness/lightheadedness, denies any falls ROS: as noted above, otherwise negative Physical Exam General: Alert, In no apparent distress, Oriented x2 Respiratory: diminished bilaterally, nonlabored on 1.5L NC Cardiovascular: trace b/l pedal edema, Irregular heart rate/rhythm Gastrointestinal: Soft and benign, Non-distended, No tenderness Integumentary: No rashes, No erythema Neurological: Normal speech, normal affect Problem List acute hypoxemic respiratory failure secondary to acute CHF exacerbation and possible pneumonia Acute on chronic diastolic heart failure Pneumonia, community acquired Gram positive bacteremia DM2, non-insulin dependent Dementia CAD s/p CABG chronic Afib HTN shortness of breath improving, O2 requirement decreasing transitioned to PO lasix continue empiric antibiotic coverage with levaquin for pneumonia, on vancomycin for gram+ bacteremia unlikely to have endocarditis, unclear if bacteremia is truly contaminant or not, gram stain was / ID consulted - recommend 2 weeks IV vanc f/u repeat blood cultures - no growth patient will need PICC line, discussed with patient and daughter, now they are agreeable continue home meds for chronic medical problems - HTN, dementia, afib, CAD Cardiology consulted, echo performed, no new findings, no further recommendations at this time, no vegetation seen Dispo: anticipate dc in ~1-2 days, SNF recommended and patient/daughter agreeable needs PICC / IV antibiotics x 2 weeks total since negative blood culture Time Spent Managing Pts Care (In Minutes): 35
[2021-09-17] MEDS ORDERED: MAGNESIUM SULFATE 1 gm IVPB 1 GM/100 ML BAG IV ONE (08:00)
[2021-09-17] MEDS: TIMOLOL OPTH SCH ×2 (09:00→20:28)
[2021-09-17] MEDS: VITAMIN D 5,000 UNIT CAP PO SCH ×2 (09:00→20:27)
[2021-09-17] MEDS: TRUSOPT 2% OPTH SCH ×2 (09:00→20:28)
[2021-09-17] MEDS ORDERED: POTASSIUM CL SA 10 MEQ TAB PO ONE (09:00)
[2021-09-17] MEDS: OPTH OPTH SCH ×2 (09:00→20:28)
[2021-09-17] MEDS: METOPROLOL TAR 50 MG TAB PO SCH ×2 (09:01→20:27)
[2021-09-17] MEDS: ENOXAPARIN 40 MG/0.4 ML SQ SCH (09:01)
[2021-09-17] MEDS: DOCUSATE NA 100 MG CAP PO SCH ×2 (09:01→20:26)
[2021-09-17] MEDS: PANTOPRAZOLE 40MG TABLET PO SCH (09:02)
[2021-09-17] MEDS: OCUVITE (VIT A,C & E/LUTEIN/MINERAL) TABLET PO SCH (09:02)
[2021-09-17] MEDS: CLOPIDOGREL 75 MG TABLET PO SCH (09:02)
[2021-09-17] MEDS: MEMANTINE HCL 10 MG TABLET PO SCH ×2 (09:02→20:27)
[2021-09-17] MEDS: DOCOSAHEXANOIC AC/EPA 1000 MG PO SCH ×2 (09:02→20:27)
[2021-09-17] MEDS: LOSARTAN POTASSIUM 50 MG TABLET PO SCH (09:02)
[2021-09-17] MEDS: MULTIVIT W/ MINERAL TAB PO SCH (09:02)
[2021-09-17] MEDS: FUROSEMIDE 40 MG TABLET PO SCH (09:03)
[2021-09-17] MEDS: ZINC SULFATE 220 MG CAP PO SCH (09:03)
--- NOTE | 2021-09-17 10:21 | P.PN ---
Subjective Date of Service: 09/17/21 Chief Complaint: CHF exacerbation Patient seen examined at bedside, patient agreeable to PICC line. WBC down trending. Review of Systems 10-point ROS is otherwise unremarkable Physical Examination - Vital Signs Temperature: 97.8 F Blood Pressure: 179/109 Pulse: 78 Respirations: 20 Pulse Ox (%): 100 - Studies Microbiology Data (last 24 hrs): 09/13/21 03:39 Blood - Blood Blood Culture Gram Stain - Final 09/13/21 03:39 Blood - Blood Gram Stain - Final 09/13/21 03:20 Blood - Blood Aerobic Blood Culture - Final Staphylococcus Haemolyticus 09/13/21 03:20 Blood - Blood Blood Culture Gram Stain - Final 09/13/21 03:20 Blood - Blood Gram Stain - Final Assessment And Plan - Plan Physical exam: General: Alert, In no apparent distress HEENT: Atraumatic, Normocephalic Neck: Supple, 2+ carotid pulse no bruit Respiratory: Clear to auscultation bilaterally, Normal air movement Cardiovascular: No edema, Irregular heart rate/rhythm Capillary refill: <2 Seconds Gastrointestinal: Normal bowel sounds, Soft and benign Musculoskeletal: No clubbing, No contractures, Other (Mild lower extremity trace edema) Integumentary: No rashes, No breakdown, No significant lesion, No tenderness/swelling, No erythema Neurological: Normal gait, Normal speech, Normal tone Conclusions/Impression: Antibiotics: Vancomycin Start: 09/16 Indication: CONs bacteremia Levaquin Start: 09/14 Indication: Left lower lobe pneumonia Assessment/plan Bacteremia Blood cultures obtained on 09/13 grew coagulase-negative Staphylococcus in 4/4 bottles. Repeat cultures obtained on 09/14 show no growth @24hr. Due to patient's age and history the aortic valve replacement, recommend treating for 2 weeks of antibiotic therapy following a negative blood culture report. Continue with vancomycin. Vancomycin trough obtained on 09/15 was 6.2, dose adjusted via pharmacy. Recommend maintaining a trough between 12-17. Continue to monitor renal function. Left lower lobe pneumonia Continue a Levaquin. Recommend treating for 5-7 days. Pulmonology on board. Leukocytosis Down trending, continue to monitor WBC trend. Patient remains afebrile. Procalcitonin down trending. GAURAV CHF exacerbation Anemia -medical management per primary team -plan of care discussed with Thank you for consultation
[2021-09-17] MEDS: ASCORBIC ACID 500 MG TABLET PO SCH (10:54)
[2021-09-17] MEDS: FERROUS GLUCONATE 324 MG TAB PO SCH (10:54)
[2021-09-17] MEDS: OSTEO BI-FLEX PO SCH ×2 (10:54→20:27)
[2021-09-17] MEDS: VANCOMYCIN 1.25 GM in NA CHLORIDE 0.9% 250 ML IVPB SCH (12:39)
[2021-09-17] MEDS: ATORVASTATIN 40 MG TAB PO SCH (20:26)
[2021-09-18 04:40] LABS: Magnesium 2.1 mg/dL (1.8-2.4); Potassium 4.1 mmol/L (3.5-5.1)
--- NOTE | 2021-09-18 06:09 | P.PN ---
Date of Service: 09/18/21 Subjective: Continues with slow improvement. Worked with physical therapist this morning, ambulated around nursing station, reports less dyspneic today. Looking forward to working more with physical therapy when he goes to SNF Awaiting PICC line ROS: as noted above, otherwise negative Physical Exam General: Alert, In no apparent distress, Oriented x2 Respiratory: diminished bilaterally, nonlabored on 1.5L NC Cardiovascular: trace b/l pedal edema, Irregular heart rate/rhythm Gastrointestinal: Soft, Non-distended, No tenderness Integumentary: No rashes, No erythema Neurological: Normal speech, normal affect Problem List acute hypoxemic respiratory failure secondary to acute CHF exacerbation and pneumonia Acute on chronic diastolic heart failure Pneumonia, community acquired Gram positive bacteremia DM2, non-insulin dependent Dementia CAD s/p CABG chronic Afib HTN shortness of breath improving, O2 requirement decreasing transitioned to PO lasix, give additional dose 20 mg IV Lasix this afternoon continue empiric antibiotic coverage with levaquin for pneumonia, on vancomycin for gram+ bacteremia unlikely to have endocarditis, unclear if bacteremia is truly contaminant or not, gram stain was /4 ID consulted - recommend 2 weeks IV vanc, complete 5-7 days of levaquin f/u repeat blood cultures - no growth patient will need PICC line, discussed with patient and daughter, agreeable as of 09/17 Awaiting PICC nurse availability continue home meds for chronic medical problems - HTN, dementia, afib, CAD Cardiology consulted, echo performed, no new findings, no further recommendations at this time, no vegetation seen Dispo: anticipate dc in next 24hrs to SNF. approved / auth obtained needs PICC IV antibiotics x 2 weeks total since negative blood culture Time Spent Managing Pts Care (In Minutes): 35
[2021-09-18 06:40] LABS: Absolute Lymphocytes (CBC) 1.1 K/uL (0.7-4.9); Basophils % 0.6 % (0-1.3); Hematocrit 33.6 % (39.6-49.0); Lymphocytes % 10.5 % (15.3-44.8); MPV 7.6 fL (7.6-11.3); RBC Red Blood Cell Count 3.61 M/uL (4.33-5.43)
[2021-09-18] MEDS: ENOXAPARIN 40 MG/0.4 ML SQ SCH (08:06)
[2021-09-18] MEDS: DOCOSAHEXANOIC AC/EPA 1000 MG PO SCH ×2 (08:06→20:30)
[2021-09-18] MEDS: OSTEO BI-FLEX PO SCH ×2 (08:06→20:30)
[2021-09-18] MEDS: ASCORBIC ACID 500 MG TABLET PO SCH (08:07)
[2021-09-18] MEDS: DOCUSATE NA 100 MG CAP PO SCH ×2 (08:07→20:30)
[2021-09-18] MEDS: OCUVITE (VIT A,C & E/LUTEIN/MINERAL) TABLET PO SCH (08:07)
[2021-09-18] MEDS: VITAMIN D 5,000 UNIT CAP PO SCH ×2 (08:07→20:30)
[2021-09-18] MEDS: MEMANTINE HCL 10 MG TABLET PO SCH ×2 (08:07→20:30)
[2021-09-18] MEDS: MULTIVIT W/ MINERAL TAB PO SCH (08:07)
[2021-09-18] MEDS: METOPROLOL TAR 50 MG TAB PO SCH ×2 (08:07→20:30)
[2021-09-18] MEDS: ZINC SULFATE 220 MG CAP PO SCH (08:08)
[2021-09-18] MEDS: PANTOPRAZOLE 40MG TABLET PO SCH (08:08)
[2021-09-18] MEDS: FERROUS GLUCONATE 324 MG TAB PO SCH (08:08)
[2021-09-18] MEDS: LOSARTAN POTASSIUM 50 MG TABLET PO SCH (08:08)
[2021-09-18] MEDS: CLOPIDOGREL 75 MG TABLET PO SCH (08:08)
[2021-09-18] MEDS: FUROSEMIDE 40 MG TABLET PO SCH (08:08)
[2021-09-18] MEDS: OPTH OPTH SCH ×2 (08:09→20:26)
[2021-09-18] MEDS: TIMOLOL OPTH SCH ×2 (08:09→20:26)
[2021-09-18] MEDS: TRUSOPT 2% OPTH SCH ×2 (08:09→20:26)
[2021-09-18] MEDS: levoFLOXacin 750 MG TAB PO SCH (08:13)
[2021-09-18] MEDS ORDERED: VANCOMYCIN 1.25 GM in NA CHLORIDE 0.9% 250 ML IVPB SCH (12:00)
[2021-09-18] MEDS ORDERED: FUROSEMIDE 20 MG/ 2ML VIAL IV ONE (12:53)
[2021-09-18 15:10] VITALS: O2SAT 99
[2021-09-18] MEDS: ATORVASTATIN 40 MG TAB PO SCH (20:30)
--- NOTE | 2021-09-18 20:42 | RAD REPORT ---
EXAM DESCRIPTION: RAD - Chest Single View - 09/18/2021 8:33 pm CLINICAL HISTORY: PICC line Placement COMPARISON: Chest Single View dated 09/16/2021; Chest Single View dated 09/13/2021; Chest Single View dated 08/28/2021; Chest Pa And Lat (2 Views) dated 02/20/2021 FINDINGS: Lines: Right subclavian approach PICC with tip overlying the SVC in satisfactory position. Lungs: Left basilar opacities. Right upper lobe opacities have resolved. Pleural: Unchanged left pleural effusion. Cardiac: Cardiomegaly. Sternotomy. Aortic valve prosthesis. Bones: No acute fractures. Other: IMPRESSION: Right subclavian approach PICC in satisfactory position overlying the SVC. Unchanged lef t pleural effusion and likely underlying atelectasis.
[2021-09-18] MEDS: IPRATROPIUM BROM 0.5MG/2.5ML NEB PRN (23:40)
[2021-09-18] MEDS: ALBUTEROL 2.5 MG/3 ML NEB SOL NEB PRN (23:40)
[2021-09-19 05:25] LABS: Magnesium 2.2 mg/dL (1.8-2.4); Potassium 3.8 mmol/L (3.5-5.1)
[2021-09-19] MEDS: OPTH OPTH SCH (07:42)
[2021-09-19] MEDS: TRUSOPT 2% OPTH SCH (07:42)
[2021-09-19] MEDS: TIMOLOL OPTH SCH (07:42)
[2021-09-19 08:19] VITALS: BP 189/97; TEMP 96.9
[2021-09-19] MEDS: ASCORBIC ACID 500 MG TABLET PO SCH (09:00)
[2021-09-19] MEDS: ZINC SULFATE 220 MG CAP PO SCH (09:00)
[2021-09-19] MEDS ORDERED: POTASSIUM CL SA 10 MEQ TAB PO ONE (09:00)
[2021-09-19] MEDS: ENOXAPARIN 40 MG/0.4 ML SQ SCH (09:00)
[2021-09-19] MEDS: LOSARTAN POTASSIUM 50 MG TABLET PO SCH (09:35)
[2021-09-19] MEDS: OCUVITE (VIT A,C & E/LUTEIN/MINERAL) TABLET PO SCH (09:35)
[2021-09-19] MEDS: PANTOPRAZOLE 40MG TABLET PO SCH (09:35)
[2021-09-19] MEDS: METOPROLOL TAR 50 MG TAB PO SCH (09:35)
[2021-09-19] MEDS: DOCOSAHEXANOIC AC/EPA 1000 MG PO SCH (09:35)
[2021-09-19] MEDS: VITAMIN D 5,000 UNIT CAP PO SCH (09:36)
[2021-09-19] MEDS: MULTIVIT W/ MINERAL TAB PO SCH (09:36)
[2021-09-19] MEDS: DOCUSATE NA 100 MG CAP PO SCH (09:37)
[2021-09-19] MEDS: FUROSEMIDE 40 MG TABLET PO SCH (09:37)
[2021-09-19] MEDS: MEMANTINE HCL 10 MG TABLET PO SCH (09:37)
[2021-09-19] MEDS: OSTEO BI-FLEX PO SCH (09:37)
[2021-09-19] MEDS: FERROUS GLUCONATE 324 MG TAB PO SCH (09:37)
[2021-09-19] MEDS: CLOPIDOGREL 75 MG TABLET PO SCH (09:37)
--- NOTE | 2021-09-19 11:17 | P.DS ---
Admission Date: 09/13/21 Discharge Date: 09/19/21 Disposition: TRANSFER TO [facility] Discharge Condition: GOOD Reason for Admission: CHF exacerbation Consultations: Infectious Disease - Dr. Mccloud Cardiology - Dr. Tam Procedures: CXR (09/13): IMPRESSION: Ill-defined hazy opacification right midlung field possible a early right upper lobe pneumonia. Follow-up can be obtained as warranted. Chronic left pleural effusion with chronic lung base opacification. Echo (09/15): NORMAL LEFT VENTRICULAR EJECTION FRACTION AND SIZE. NORMAL AORTIC VALVE REPLACEMENT FUNCTION. NO VEGETATION. CXR (09/16): FINDINGS: Mild right upper lobe opacities have partially resolved No change in chronic left pleural effusion The heart remains enlarged. Postsurgical changes involve chest CXR (09/18): IMPRESSION: Right subclavian approach PICC in satisfactory position overlying the SVC. Unchanged left pleural effusion and likely underlying atelectasis. Problem List acute hypoxemic respiratory failure secondary to acute CHF exacerbation and pneumonia Acute on chronic diastolic heart failure Pneumonia, community acquired Gram positive bacteremia DM2, non-insulin dependent Dementia CAD s/p CABG chronic Afib HTN Brief History of Present Illness: 81yo gentleman with CHF, CAD, HTN, HLD, afib, DM Presents with worsening SOB and PUGH beginning a few days ago. He also reports cough, wheezing, edema, orthopnea and PND. Denies palpitations. CXR shows evidence of pulmonary edema. BUN 29 GFR 1.54 GFR 43 BNP 2167. He was admitted for a CHF exacerbation at the end of last month. He is scheduled to follow up with cardiology at the end of next week. Hospital Course: Acute on chronic CHF exacerbation Patient had gradual improvement with diuresis. Initially on IV Lasix and transition to p.o. Lasix. Echocardiogram done, results as noted above. Cardiology consulted, recommended no further evaluation Bacteremia Patient's blood cultures drawn in the ED on admission grew gram-positive cocci in clusters. Patient was empirically treated with IV vancomycin. Infectious disease was consulted. Subsequent blood culture remain negative. There is no definitive source for gram-positive infection. There was possible pneumonia seen on imaging. Patient also received Levaquin. Echocardiogram did not reveal any vegetation. Patient did not appear septic or to have any clinical signs of endocarditis. He was noted to have leukocytosis and very mild elevation of his procalcitonin. Infectious disease recommended treatment with IV vancomycin for total of 2 weeks. Patient had a PICC line placed on 09/18 He is discharged to SNF to continue antibiotics, physical therapy, wean oxygen Follow-up with PCP within 1 week of discharge Follow-up with cardiology in 3 to 4 weeks Vital Signs/Physical Exam: Physical Exam General: Alert, In no apparent distress Respiratory: diminished bilaterally, nonlabored on 1.5L NC Cardiovascular: trace b/l pedal edema, Irregular heart rhythm, no murmur Gastrointestinal: Soft, Non-distended, No tenderness Integumentary: No rashes, No erythema Neurological: Normal speech, normal affect Temp Pulse Resp BP Pulse Ox 96.9 F 90 16 189/97 H 100 09/19/21 08:00 09/19/21 08:00 09/19/21 08:00 09/19/21 08:00 09/19/21 08:00 Laboratory Data at Discharge: WBC 10.90 K/uL (4.3-10.9) 09/18/21 03:45 Hgb 11.2 g/dL (13.6-17.9) L 09/18/21 03:45 Hct 33.6 % (39.6-49.0) L 09/18/21 03:45 Plt Count 245 K/uL (152-406) 09/18/21 03:45 PT 14.1 SECONDS (9.5-12.5) H 09/13/21 02:38 INR 1.22 09/13/21 02:38 Sodium 141 mmol/L (136-145) 09/19/21 04:40 Potassium 3.8 mmol/L (3.5-5.1) 09/19/21 04:40 BUN 30 mg/dL (7-18) H 09/19/21 04:40 Creatinine 1.16 mg/dL (0.55-1.3) 09/19/21 04:40 Glucose 113 mg/dL (74-106) H 09/19/21 04:40 Phosphorus Cancelled 09/19/21 Unknown Magnesium 2.2 mg/dL (1.8-2.4) 09/19/21 04:40 Total Bilirubin 0.5 mg/dL (0.2-1.0) 09/14/21 03:45 AST 29 U/L (15-37) 09/14/21 03:45 ALT 63 U/L (12-78) 09/14/21 03:45 Alkaline Phosphatase 128 U/L (45-117) H 09/14/21 03:45 Triglycerides 55 mg/dL (<150) 09/14/21 03:45 Cholesterol 85 mg/dL (<200) 09/14/21 03:45 HDL Cholesterol 53 mg/dL (40-60) 09/14/21 03:45 Cholesterol/HDL Ratio 1.60 09/14/21 03:45 Home Medications: Acetaminophen [Tylenol] 2 tab PO PRN PRN 09/13/21 Ascorbic Acid [Vitamin C with Mackenzie Hips] 1 tab PO DAILY 09/13/21 Atorvastatin Calcium [Lipitor] 40 mg PO BEDTIME 09/13/21 Cholecalciferol (Vitamin D3) [Vitamin D3] 5,000 units PO BID 09/13/21 Clopidogrel Bisulfate [Plavix*] 75 mg PO DAILY 09/13/21 Dorzolamide HCl [Trusopt] 1 drop EACH EYE BID 09/13/21 Ferrous Gluconate 1 tab PO DAILY 09/13/21 Furosemide 1 tab PO DAILY 09/13/21 Galantamine HBr [Galantamine ER] 4 mg PO BID 09/13/21 Glucosamine/Chondr Villarreal A Sod [Osteo Bi-Flex Caplet] 1 tab PO BID 09/13/21 Losartan Potassium 1 tab PO DAILY 09/13/21 Memantine HCl 1 tab PO BID 09/13/21 Metoprolol Tartrate 100 mg PO BID 09/13/21 Multivit-Minerals/FA/Lycopene [One Daily Tablet] 1 tab PO DAILY 09/13/21 Cherry Plain-3 Fatty Acids [Cherry Plain-3] 1 tab PO BID 09/13/21 Pantoprazole [Protonix Tab*] 1 tab PO DAILY 09/13/21 Timolol Maleate/Pf [Timolol Maleate 0.5% Eye Drop] 1 drop EACH EYE BID 09/13/21 Vit A,C & E/Lutein/Minerals [Ocuvite Tablet] 1 tab PO DAILY 09/13/21 Zinc 1 tab PO DAILY 09/13/21 Docusate [Colace Cap*] 100 mg PO BID cap 09/19/21 Vancomycin/0.9 % Sod Chloride [Vanco 1.25 gm/250 ml-0.9% NaCl] 1.25 gm IV DAILY 10 Days plast..bag 09/19/21 New Medications: Vancomycin/0.9 % Sod Chloride [Vanco 1.25 gm/250 ml-0.9% NaCl] 1.25 gm IV DAILY 10 Days plast..bag Followup: NONE,NONE [Primary Care Provider] - Time spent managing pt's care (in minutes): 45
--- NOTE | 2021-09-19 19:08 | PN ---
Subjective: Mr. Lubin had been admitted with possible sepsis. Echocardiogram showed no evidence of endocarditis. No vegetation on the valve surgery. If he continues to deteriorate, we will have to d o a transesophageal echocardiogram. He is going to go home with a catheter, 4 to 6 weeks antibiotic course regardless because of 4/4 positive blood cultures. Clinically, however, is stable. Afebrile. No symptoms. Echocardiogram showed an ejection fraction 69%. He has diastolic congestive heart fa ilure, coronary artery disease, status post CABG, status post TAVR, looks very comfortable. I will s end him home whenever it is okay with primary care physician. I will see him in the office in the ne ar future. JENN/REBEKAH Voice ID: [id number] Report ID: [id number]
--- NOTE | 2021-09-21 11:06 | CON ---
Date of Consultation: 09/15/2021 History Of Present Illness: Shortness of breath. History Of Present Illness: Mr. Lubin is an 81-year-old white male, who has had several admissions t o the hospital and I have been seeing him in the office for quite sometimes now. He has a history of atrial fibrillation, diabetes, hypertension, coronary artery bypass graft, and TAVR. Has had a juancarlos o as a kid. Comes in with shortness of breath with minimal exertion. Has had a cough that is produc tive. Denied any actual chest pain, nausea, vomiting, diaphoresis, PND, orthopnea, pedal edema, palp itation, or syncope. Past Medical History: As stated above. Allergies: HE IS ALLERGIC TO PENICILLIN AND XARELTO. Review of Systems: Negative. Social History: Negative. Family History: Negative. Physical Examination: Vital Signs: Blood pressure is 160/70, pulse is 92, afebrile, O2 saturations were 98% on room air. His weight was 70 kg. HEENT: Negative. Neck: Supple with no bruit. Chest: Clear to auscultation and percussion. Cardiac: Revealed a regular rhythm and rate. No murmurs, gallops, or rubs. Abdomen: Benign. Extremities: Revealed no clubbing, cyanosis, or edema. Laboratory Data: His chest x-ray was unremarkable. Echocardiogram showed an ejection fraction of 69 %, normal functioning aortic valve, no vegetation. He had a positive blood culture. Infectious dise ase has seen him. He is on IV antibiotics. Impression And Plan: Shortness of breath, white count elevation, cough, positive blood culture. Veg etation has been ruled out by echo. I would still recommend IV antibiotics treatment for 6 weeks. Cecilio gallegos may need a transesophageal echocardiogram down the road. Continue his medication. As far as his c ongestive heart failure with diastolic is concerned, continue his blood pressure, diabetes and dyslip idemia medications. I will continue to follow him along. JENN/REBEKAH Voice ID: [id number] Report ID: [id number]
== END 2021-09-19 11:30 | DRG 291 ==
LOC: ER 02:06 → ERHOLD 04:37 → 4TH 09:16 → 2ND 09-18 16:45
PROVIDERS: ADMIT Internal Medicine; ATTEND Internal Medicine
PROC: 05H533Z Insertion of Infusion Device into Right Subclavian Vein, Percutaneous Approach (ICD-10-PCS; principal; 2021-09-18)
DX: I11.0 Hypertensive heart disease with heart failure (principal); I50.33 Acute on chronic diastolic (congestive) heart failure; J96.01 Acute respiratory failure with hypoxia; J18.9 Pneumonia, unspecified organism; R78.81 Bacteremia; I48.20 Chronic atrial fibrillation, unspecified; N17.9 Acute kidney failure, unspecified; E11.9 Type 2 diabetes mellitus without complications; I25.10 Atherosclerotic heart disease of native coronary artery without angina pectoris; D64.9 Anemia, unspecified; E78.5 Hyperlipidemia, unspecified; F01.50 Vascular dementia, unspecified severity, without behavioral disturbance, psychotic disturbance, mood disturbance, and anxiety; L89.151 Pressure ulcer of sacral region, stage 1; Z86.12 Personal history of poliomyelitis; Z95.2 Presence of prosthetic heart valve; Z95.1 Presence of aortocoronary bypass graft; Z88.0 Allergy status to penicillin; Z20.822 Contact with and (suspected) exposure to COVID-19
CPT/HCPCS: 0240U; 36415; 36569; 71045; 80048; 80053; 80061; 80076; 80202; 82565; 83605; 83735; 83880; 84100; 84145; 84439; 84443; 84484; 85025; 85027; 85610; 86140; 87040; 87077; 87186; 87205; 93005; 93306; 94640; 94760; 96374; 97116; 97161; 97530; 99285; J1650; J1940; J3370; J3475; J7040; J7050

== ENCOUNTER 2021-09-23 17:50 | Emergency (ER) | payer OTHER ==
--- OUTSIDE RECORDS SUMMARY | 2021-09-23 17:53 | XMS REPORT | Continuity of Care Document ---
:[address] [facility] t Address [facility] [place] [address] Care Team Providers Name Role Phone CIVUNIGUNTA Attending Clinician Unavailable CIVUNIGUNTA Admitting Clinician Unavailable Problems This patient has no known problems. Allergies, Adverse Reactions, Alerts This patient has no known allergies or adverse reactions. Medications This patient has no known medications. Procedures This patient has no known procedures. Results Test Description Test Time Test Comments Results Result [facility] e Comments TISSUE EXAM 2018-10-04 Surgical Pathology 14:19:00 Report Case: [id number] Authorizing Provider: Jhonathan Sharma MD Collected: 09/25/2018 1808 Ordering Location: [address] Received: 09/26/2018 0927 Service Pathologist: Haris Jeter MD Specimen: Plaque, arterial plaque ARTERY, LEFT FEMORAL, ENDARTERECTOMY:CALCIFI C ATHEROSCLEROTIC PLAQUE Signing Pathologist Direct Phone Line: [phone] ally signed by Haris Jeter MD on 10/04/2018 at 2:19 [id number]; [id number] femoral artery plaqueArterial plaqueThe specimen is received in saline labeled with the patient's information labeled "arterial plaque" and consists of previously opened calcified segment of tissue measuring 2.5 cm in length x 0.5 cm in circumference. Manager Long Term Care sections are submitted A1 for decalcification. CG/pl Performed POCT-GLUCOSE METER 2018-09-28 13:44:00 Test Item Value Reference Range Interpretation Comme nts POC-GLUCOSE METER (BEAKER) (test 326 mg/dL 70-110 H TESTED AT [facility] [address] code = 1538) [facility] 7703 0 POCT-GLUCOSE [id number] 11:32:00 Test Item Value Reference Range Interpretation Comments POC-GLUCOSE METER 150 mg/dL 70-110 H TESTED AT [facility] 6720 (BEAKER) (test code = [place] 1538) [id number] 04:26:00 Test Item Value Reference Range Interpretation Comments MAGNESIUM (BEAKER) (test code = 1.6 mg/dL 1.6-2.6 627) BASIC METABOLIC [id number] 04:26:00 Test Item Value Reference Range Interpretation [...] PATIEN TS. CBC W/PLT COUNT & AUTO [id number] 04:09:00 Test Item Value Reference Range Interpretation [...] 0-1 PERCENT (BEAKER) (test code = 2801) [id number] 03:49:00 Test Item Value Reference Range Interpretation Comments MAGNESIUM (BEAKER) (test code = 1.7 mg/dL 1.6-2.6 627) BASIC METABOLIC [id number] 03:49:00 Test Item Value Reference Range Interpretation [...] PATIEN TS. CBC W/PLT COUNT & AUTO [id number] 03:32:00 Test Item Value Reference Range Interpretation [...] 0-1 PERCENT (BEAKER) (test code = 2801) [id number] 10:17:00 Test Item Value Reference Range Interpretation Comments MAGNESIUM (BEAKER) (test code = 1.6 mg/dL 1.6-2.6 627) BASIC METABOLIC [id number] 10:17:00 Test Item Value Reference Range Interpretation [...] PATIEN TS. CBC W/PLT COUNT & AUTO [id number] 03:47:00 Test Item Value Reference Range Interpretation [...] 0-1 PERCENT (BEAKER) (test code = 2801) [id number] 17:44:00 Test Item Value Reference Range Interpretation Comments ACTIVATED CLOTTING TIME 131 sec TEST ED AT [place] [address] (BEAKER) (test code = [place] [facility] 441) [address] BLOOD GAS, [id number] 17:15:00 Test Item Value Reference Range Interpretation [...] code = 1819) 30.0 % SODIUM NA-STAT [id number] 17:15:00 Test Item Value Reference Range Interpretation Comments SODIUM (BEAKER) (test code = 381) 132 meq/L 135-148 L HGB/HCT (H&H) - STAT [id number] 17:15:00 Test Item Value Reference Range Interpretation Comments HEMOGLOBIN (BEAKER) (test code = 11.2 g/dL 13.0-16.8 L 410) HEMATOCRIT (BEAKER) (test code = 33.0 % 40.0-50.0 L 411) GLUCOSE-STAT [id number] 17:14:00 Test Item Value Reference Range Interpretation Comments GLUCOSE RANDOM (BEAKER) (test code 104 mg/dL 70-110 = 652) POTASSIUM-STAT [id number] 17:14:00 Test Item Value Reference Range Interpretation Comments POTASSIUM (BEAKER) (test code = 4.1 meq/L 3.6-5.5 379) [id number] 17:11:00 Test Item Value Reference Range Interpretation Comments ACTIVATED CLOTTING TIME 268 sec TEST ED AT [facility] 67 (BEAKER) (test code = [place] [facility] 441) [address] [id number] 16:12:00 Test Item Value Reference Range Interpretation Comments ACTIVATED CLOTTING TIME 257 sec TEST ED AT [facility] 6720 (BEAKER) (test code = [place] 441) [address] BASIC METABOLIC [id number] 07:04:00 Test Item Value Reference Range Interpretation [...] code = 413) URINALYSIS W/ REFLEX URINE [id number] 13:29:00 Test Item Value Reference Range Interpretation [...] SOURCE(BEAKER) (test code = 2795) BASIC METABOLIC [id number] 06:55:00 Test Item Value Reference Range Interpretation [...] 0-0 (BEAKER) (test code = 413) POCT-GLUCOSE [id number] 18:09:00 Test Item Value Reference Range Interpretation Comments POC-GLUCOSE METER 99 mg/dL 70-110 [facility] AT [facility] (test code = [place] [address] 1538) POCT-GLUCOSE [id number] 13:47:00 Test Item Value Reference Range Interpretation Comments POC-GLUCOSE METER 144 mg/dL 70-110 H TESTED AT [facility] 6720 (BEAKER) (test code = [place] 1538) [address] U/S, [id number] 11:20:00Laterality?->Left Reason for exam:->left sided pleural effusion [...] [place]ort Verified Date/Time: 09/23/2018 11:20:35 Reading Location: [address] Ortho Consult Reading Room PROTHROMBIN [id number] 05:40:00 Test Item Value Reference Range Interpretation Comments PROTIME (BEAKER) (test code = 14.7 seconds 11.7-14.7 759) INR (BEAKER) (test code = 370) 1.2 <=5.9 RECOMMENDED COUMADIN/WARFARIN INR THERAPY RANGESSTANDARD DOSE: 2.0 - 3.0 Includes: PROPHYLAXIS forvenous thrombosis, systemic embolization; TREATMENT for venous thrombosis and/or pulmonary embolus.HIGH RISK: Target INR is 2.5-3.5 for patients with mechanical heart valves.[id number] 05:40:00 Test Item Value Reference Range Interpretation Comments PARTIAL THROMBOPLASTIN TIME 31.6 seconds 22.5-36.0 (BEAKER) (test code = 760) [id number] 05:21:00 Test Item Value Reference Range Interpretation Comments MAGNESIUM (BEAKER) (test code = 1.6 mg/dL 1.6-2.6 627) BASIC METABOLIC [id number] 05:21:00 Test Item Value Reference Range Interpretation [...] S NOT APPLICABLE FOR DIALYSIS PATIEN TS. [id number] 05:20:00 Test Item Value Reference Range Interpretation Comments MAGNESIUM (BEAKER) (test code = 1.5 mg/dL 1.6-2.6 L 627) BASIC METABOLIC [id number] 05:20:00 Test Item Value Reference Range Interpretation [...] PATIEN TS. CBC W/PLT COUNT & AUTO [id number] 05:02:00 Test Item Value Reference Range Interpretation [...] 0-0 (BEAKER) (test code = 413) POCT-GLUCOSE [id number] 21:35:00 Test Item Value Reference Range Interpretation Comments POC-GLUCOSE METER 133 mg/dL 70-110 H TESTED AT [facility] 6720 (BEAKER) (test code = [place] 1538) [address] POCT-GLUCOSE [id number] 17:37:00 Test Item Value Reference Range Interpretation Comments POC-GLUCOSE METER 147 mg/dL 70-110 H TESTED AT [facility] 6720 (BEAKER) (test code = [place] 1538) [address] [id number] 17:19:00 Test Item Value Reference Range Interpretation Comments MAGNESIUM (BEAKER) (test code = 1.5 mg/dL 1.6-2.6 L 627) BASIC METABOLIC [id number] 17:19:00 Test Item Value Reference Range Interpretation [...] NOT APPLICABLE FOR DIALYSIS PATIEN TS. POCT-GLUCOSE [id number] 13:08:00 Test Item Value Reference Range Interpretation Comments POC-GLUCOSE METER 106 mg/dL 70-110 TESTED AT [facility] 6720 ([facility]) (test code = [facility] [place] [facility] 1538) [address] POCT-GLUCOSE [id number] 21:49:00 Test Item Value Reference Range Interpretation Comments POC-GLUCOSE METER 116 mg/dL 70-110 H TESTED AT [facility] 6720 ([facility]) (test code = [facility] 1538) [address] POCT-GLUCOSE [id number] 17:56:00 Test Item Value Reference Range Interpretation Comments POC-GLUCOSE METER 142 mg/dL 70-110 H TESTED AT [facility] 6720 ([facility]) (test code = [facility] 1538) [address] CT, CTA, [id number] 14:55:00Addendum BeginsREPORT STATUS:A Addendum:There is increased density visualized in the left pleural fluid collection. Clinical correlation is needed if an inflammatory or hemorrhag ic process is suspected.I agree with the previously described non vascular findings. Signed: Shirlene Ackerman MDReport Verified Date/Time: 09/21/2018 14:55:20 Reading Location: [facility] P048 Angio Body Reading RoomAddendum EndsFINAL REPORT [...] have increased ca lcific atherosclerosis seen with sykt-ef-jvrhpbdk lesion identified. The right common femoral arteryis [...] An addendum will be dictated by the Monitor Technician Radiologist regarding the nonvascular findings. Signed: Shawn Barnes Verified Date/Time: 09/21/2018 14:01:54 Reading Location: [place] [id number] Cardiology MRI CT, CTA [id number] 14:55:00 Addendum BeginsREPORT STATUS:A Addendum:There is increased density visualized in the left pleural fluid collection. Clinical correlation is needed if an inflammatory or hemorrhagic process is suspected.I agree with the previously described non vascular findings. Signed: Shirlene Ackerman Verified Date/Time: 09/21/2018 14:55:20 Reading Location: [place] [id number] Angio Body Reading RoomAddendum EndsFINAL REPORT CT [...] artery have increased calcific atherosclerosis seen with ltbv-zx-dfghgdqw lesion identified. The right common femoral arteryis [...] An addendum will be dictated by the Monitor Technician Radiologist regarding the nonvascular findings. Signed: Shawn Barnes Verified Date/Time: 09/21/2018 14:01:54 Reading Location: [place] [address] Cardiology MRI BASI METABOLIC [id number] 07:01:00 Test Item Value Reference Range Interpretation [...] mg/dL 8.4-10.2 (test code = 697) EGFR ([facility]) (test 67 mL/min/1.73 ESTIMA RUTH GFR IS code = 1092) sq m NOT ACCURATE CREATININE CLEARANCE IN PREDICTING GLOMERULAR FILTRATION RATE . ESTIMATED GFR I S NOT APPLICABLE FOR DIALYSIS PATIEN TS. POCT-GLUCOSE [id number] 22:18:00 Test Item Value Reference Range Interpretation Comments POC-GLUCOSE METER 176 mg/dL 70-110 H TESTED AT [place] [address] ([facility]) (test code = [facility] [place] [facility] 1538) [address] RAD, CHEST, 1 VIEW, NON [id number] 20:32:00Reason for exam:->SOBShould this be performed at [...] Rueda Verified Date/Time: 09/20/2018 20:32:40 Reading Location: [facility] Radiology Reading Room POCT- GLUCOSE [id number] 17:05:00 Test Item Value Reference Range Interpretation Comments POC-GLUCOSE METER 164 mg/dL 70-110 H TESTED AT [place] [address] ([facility]) (test code = [facility] [place] [facility] 1538) [address] POCT-GLUCOSE [id number] 13:55:00 Test Item Value Reference Range Interpretation Comments POC-GLUCOSE METER 105 mg/dL 70-110 TESTED AT [place] [address] ([facility]) (test code = [facility] [place] [facility] 1538) [address] POCT-GLUCOSE [id number] 09:01:00 Test Item Value Reference Range Interpretation Comments POC-GLUCOSE METER 116 mg/dL 70-110 H TESTED AT [place] [address] ([facility]) (test code = [place] [facility] 1538) [address] BASIC METABOLIC [id number] 05:36:00 Test Item Value Reference Range Interpretation [...] NOT APPLICABLE FOR DIALYSIS PATIEN TS. POCT-GLUCOSE [id number] 23:13:00 Test Item Value Reference Range Interpretation Comments POC-GLUCOSE METER 119 mg/dL 70-110 H TESTED AT [place] [address] ([facility]) (test code = [facility] 1538) [address] POCT-GLUCOSE [id number] 18:21:00 Test Item Value Reference Range Interpretation Comments POC-GLUCOSE METER 155 mg/dL 70-110 H TESTED AT [place] [address] ([facility]) (test code = [facility] 1538) [address] HEMOGLOBIN [id number] 12:52:00 Test Item Value Reference Range Interpretation Comments HEMOGLOBIN A1C (BEAKER) (test code = 6.4 % 4.3-6.1 H 368) POCT-GLUCOSE [id number] 09:22:00 Test Item Value Reference Range Interpretation Comments POC-GLUCOSE METER 99 mg/dL 70-110 TESTED AT [place] [address] ([facility]) (test code = [facility] [address] 1538) BASIC METABOLIC [id number] 06:48:00 Test Item Value Reference Range Interpretation [...] NOT APPLICABLE FOR DIALYSIS PATIEN TS. TROPONIN [id number] 06:46:00 Test Item Value Reference Range Interpretation [...] PERCENT (BEAKER) (test code = 2801) TROPONIN [id number] 01:37:00 Test Item Value Reference Range Interpretation [...] (BEAKER) (test code = 700) COMPREHENSIVE METABOLIC [id number] 18:56:00 Test Item Value Reference Range Interpretation [...] PATIEN TS. CBC W/PLT COUNT & AUTO [id number] 18:35:00 Test Item Value Reference Range Interpretation [...] PERCENT (BEAKER) (test code = 2801) POCT-GLUCOSE [id number] 17:14:00 Test Item Value Reference Range Interpretation Comments POC-GLUCOSE METER 172 mg/dL 70-110 H [facility] AT [facility] 67 [facility] (test code = [place] 1538) [address]
[2021-09-23] MEDS ORDERED: NA CHLORIDE 0.9% 250 ML ONE (19:44)
[2021-09-23] MEDS ORDERED: VANCOMYCIN 1 GM/VIAL ONE (19:44)
[2021-09-23 20:46] LABS: Absolute Lymphocytes (CBC) 1.1 K/uL (0.7-4.9); Basophils % 0.5 % (0-1.3); Hematocrit 33.5 % (39.6-49.0); MPV 7.7 fL (7.6-11.3); RBC Red Blood Cell Count 3.64 M/uL (4.33-5.43)
[2021-09-23 20:55] LABS: Potassium 3.6 mmol/L (3.5-5.1)
--- NOTE | 2021-09-23 22:52 | ER ---
Nurse's Notes [facility] Name: Jeb Lubin Age: 81 yrs Sex: Male : 1940 Arrival Date: 09/23/2021 Time: 17:50 Bed 17 Private MD: Diagnosis: Bacteremia Presentation: 09/23 18:20 Chief complaint: Patient states: Released from here Tuesday. Went to [facility] ll[facility]. They had to pull him out due to not taking care of him well. Has had only 1 IV antibiotic since release (Tuesday night). Came for re eval. and get new orders for [facility]. Coronavirus screen: Vaccine status: Patient reports being unvaccinated. Client denies travel out of the [place] in the last 14 days. At this time, the client does not indicate any symptoms associated with coronavirus-19. Ebola Screen: Patient denies travel to an Ebola-affected area in the 21 days before illness onset. Initial Sepsis Screen: Does the patient meet any 2 criteria? No. Patient's initial sepsis screen is negative. Does the patient have a suspected source of infection? No. Patient's initial sepsis screen is negative. Risk Assessment: Do you want to hurt yourself or someone else? Patient reports no desire to harm self or others. Onset of symptoms was September 21, 2021. 18:20 Method Of Arrival: Wheelchair ll1 18:20 Acuity: CECILIA 3 ll1 Historical: - Allergies: 18:19 PENICILLINS; ll1 18:19 Xarelto; ll1 - PMHx: 18:19 Atrial Fib; Diabetes - NIDDM; Polio; as a kid; Hypertension; ll1 - PSHx: 18:19 Coronary artery bypass graft; heart valve replacement; ll1 - Immunization history:: Client reports having NOT received the Covid vaccine. - Social history:: Smoking status: Patient denies any tobacco usage or history of. Patient/guardian denies using tobacco, the patient reports quitting approximately 30 years ago. Screenin:17 Abuse screen: Denies threats or abuse. Denies injuries from another. Nutritional ld1 screening: No deficits noted. Tuberculosis screening: No symptoms or risk factors identified. Fall Risk None identified. Assessment: 20:17 General: Appears in no apparent distress. comfortable, Behavior is calm, cooperative, ld1 appropriate for age. Pain: Denies pain. Neuro: Level of Consciousness is awake, alert, obeys commands, Oriented to person, place, time, situation, Appropriate for age. Cardiovascular: Capillary refill < 3 seconds Patient's skin is warm and dry. Rhythm is irregular. Respiratory: Airway is patent Respiratory effort is even, unlabored, Respiratory pattern is regular, symmetrical. GI: Abdomen is flat, non-distended. : No signs and/or symptoms were reported regarding the genitourinary system. EENT: No signs and/or symptoms were reported regarding the EENT system. Derm: No signs and/or symptoms reported regarding the dermatologic system. Musculoskeletal: No signs and/or symptoms reported regarding the musculoskeletal system. 21:44 Reassessment: Patient appears in no apparent distress at this time. No changes from ld1 previously documented assessment. Patient and/or family updated on plan of care and expected duration. Pain level reassessed. Patient is alert, oriented x 3, equal unlabored respirations, skin warm/dry/pink. Patient denies pain at this time. Vital Signs: 18:20 BP 130 / 70; Pulse 60; Resp 16; Temp 98.2; Pulse Ox 100% ; Weight 71.21 kg; Height 5 ll1 ft. 4 in. (162.56 cm); Pain 1/10; 20:17 BP 128 / 67; Pulse 84; Resp 14; Pulse Ox 98% on R/A; Pain 0/10; ld1 21:44 BP 136 / 60; Pulse 73; Resp 13; Pulse Ox 98% on R/A; ld1 22:00 BP 157 / 78; Pulse 91; Resp 19; Pulse Ox 97% on R/A; ld1 23:02 BP 144 / 95; Pulse 81; Resp 15; Pulse Ox 97% on R/A; ld1 18:20 Body Mass Index 26.95 (71.21 kg, 162.56 cm) ll1 ED Course: 17:50 Patient arrived in ED. as 18:19 Arm band placed on. ll1 18:24 Triage completed. ll1 18:25 Mitch Chao, ISMA is Primary Nurse. bp 19:04 Barrett Valentine MD is Attending Physician. sp3 20:17 Patient has correct armband on for positive identification. Placed in gown. Bed in low ld1 position. Call light in reach. Side rails up X2. monitoring manager on. Pulse ox on. NIBP on. Door closed. Noise minimized. Warm blanket given. 20:17 No provider procedures requiring assistance completed. Accessed PICC line. No dressing ld1 on PICC site upon arrival. Applied sterile dressing.. Good blood return. Flushes easily. 22:44 Called family to get more information on patient's reason for visit. Family states they agnes do not currently use [facility] but were trying to get it set up so that he could get his IV antibiotics. [facility] states that they do not provide the IV antibiotics and that would have to go through an infusion company approved by his insurance. Family informed of this, and that Home Health would have to be set up on an outpatient basis, but may have to come back to ER if unable to get his IV antibiotics set up. Administered Medications: 20:10 Drug: vancoMYCIN 1.25 grams Route: IVPB; Infused Over: 2 hrs; Site: PICC; ld1 Outcome: 22:52 Discharge ordered by . dawood 23:04 Discharged to home via wheelchair, with family. ld1 23:04 Condition: stable 23:04 Discharge instructions given to patient, family, Instructed on discharge instructions, follow up and referral plans. Demonstrated understanding of instructions, follow-up care. 23:05 Patient left the ED. ld1 Signatures: Amanda Michelle Brian, RN RN bp Ashish Rogers RN RN ll1 Alejandra Will RN RN ld1 Barrett Valentine MD MD sp3 Adeola Vickers RN RN [id number]
--- NOTE | 2021-09-23 22:52 | EDPHYS ---
Physician Documentation [facility] Name: Jeb Lubin Age: 81 yrs Sex: Male : 1940 Arrival Date: 09/23/2021 Time: 17:50 Bed 17 Private MD: ED Physician Barrett Valentine HPI: 09/23 19:44 This 81 yrs old Male presents to ER via Wheelchair with complaints of needs iv sp3 antibiotics-bacteremia. 19:44 81-year-old male presents with family from senior care for concerns of him not getting sp3 his proper medications and physical therapy. Patient was admitted here at this facility and subsequently discharged to local senior care for IV antibiotics and physical therapy for bacteremia and likely pneumonia. Patient was discharged on 1.25 mg of vancomycin every 24 hours for 10 days via PICC line that was placed. Patient also has a history of hypertension, diabetes, paroxysmal atrial fibrillation, CABG, aortic valve replacement, and general deconditioning and history of polio. Patient currently has no complaints, no pain, no fever, and is only here secondary to him and his family believing that he has not gotten his antibiotics. Patient was discharged 1 day and in the last 4 days has only received 1 dose secondary to logistical issues at the senior care. They subsequently try to arrange home health for home administration but due to paperwork issues that did not occur and home health advised him to return to the ED to get "proper discharge instructions" to allow them to administer the medications at home.. Historical: - Allergies: 18:19 PENICILLINS; ll1 18:19 Xarelto; ll1 - PMHx: 18:19 Atrial Fib; Diabetes - NIDDM; Polio; as a kid; Hypertension; ll1 - PSHx: 18:19 Coronary artery bypass graft; heart valve replacement; ll1 - Immunization history:: Client reports having NOT received the Covid vaccine. - Social history:: Smoking status: Patient denies any tobacco usage or history of. Patient/guardian denies using tobacco, the patient reports quitting approximately 30 years ago. ROS: 19:46 Constitutional: Negative for fever, chills, and weight loss, Eyes: Negative for injury, sp3 pain, redness, and discharge, Neck: Negative for injury, pain, and swelling, Cardiovascular: Negative for chest pain, palpitations, and edema, Respiratory: Negative for shortness of breath, cough, wheezing, and pleuritic chest pain, Abdomen/GI: Negative for abdominal pain, nausea, vomiting, diarrhea, and constipation, Skin: Negative for injury, rash, and discoloration, Psych: Negative for depression, anxiety, suicide ideation, homicidal ideation, and hallucinations, Allergy/Immunology: Negative for hives, rash, and allergies. 19:46 All other systems are negative. Exam: 19:47 Constitutional: This is a well developed, well nourished patient who is awake, alert, sp3 and in no acute distress. Head/Face: Normocephalic, atraumatic. Eyes: Pupils equal round and reactive to light, extra-ocular motions intact. Lids and lashes normal. Conjunctiva and sclera are non-icteric and not injected. Cornea within normal limits. Periorbital areas with no swelling, redness, or edema. Neck: Trachea midline, no thyromegaly or masses palpated, and no cervical lymphadenopathy. Supple, full range of motion without nuchal rigidity, or vertebral point tenderness. No Meningismus. Chest/axilla: Normal chest wall appearance and motion. Nontender with no deformity. No lesions are appreciated. Cardiovascular: Regular rate and rhythm with a normal S1 and S2. No gallops, murmurs, or rubs. Normal PMI, no JVD. No pulse deficits. Respiratory: Lungs have equal breath sounds bilaterally, clear to auscultation and percussion. No rales, rhonchi or wheezes noted. No increased work of breathing, no retractions or nasal flaring. Abdomen/GI: Soft, non-tender, with normal bowel sounds. No distension or tympany. No guarding or rebound. No evidence of tenderness throughout. Skin: Warm, dry with normal turgor. Normal color with no rashes, no lesions, and no evidence of cellulitis. Psych: Awake, alert, with orientation to person, place and time. Behavior, mood, and affect are within normal limits. Vital Signs: 18:20 BP 130 / 70; Pulse 60; Resp 16; Temp 98.2; Pulse Ox 100% ; Weight 71.21 kg; Height 5 ll1 ft. 4 in. (162.56 cm); Pain 1/10; 20:17 BP 128 / 67; Pulse 84; Resp 14; Pulse Ox 98% on R/A; Pain 0/10; ld1 21:44 BP 136 / 60; Pulse 73; Resp 13; Pulse Ox 98% on R/A; ld1 22:00 BP 157 / 78; Pulse 91; Resp 19; Pulse Ox 97% on R/A; ld1 23:02 BP 144 / 95; Pulse 81; Resp 15; Pulse Ox 97% on R/A; ld1 18:20 Body Mass Index 26.95 (71.21 kg, 162.56 cm) ll1 MDM: 19:35 Patient medically screened. sp3 19:48 Data reviewed: vital signs, nurses notes. ED course: 81-year-old male here with no sp3 acute emergency other than him not getting his care plan executed. We will check routine labs and administer vancomycin 1.25 g as per his intended care plan. We will also arrange discharge and follow-up with home health within local nursing staff in the ED to help with logistics. Patient has no other medical emergency and is not septic or in any distress.. 22:01 ED course: Laboratory values reviewed which demonstrate no significant abnormality. sp3 supervisor rides is assisting on home health placement and best course of action on that front. Patient is stable from the ED perspective and we will discharge after logistics are finalized.. 22:50 ED course: Home health team was contacted by the hospital head of housekeeping and it was sp3 found that no official consult has been placed. Therefore full consult will need to be placed with the infusion team as well as home health to allow antibiotics to be given at home. That will not be able to be performed in the ED tonight, therefore we will discharge patient home. Patient cannot achieve consult and logistics tomorrow, he may have to return for another IV dose here. There is no admission criteria at this time we will discharge patient home with instructions given by head of housekeeping. Please see her note in the chart.. 09/23 19:38 Order name: Basic Metabolic Panel; Complete Time: 21:06 sp3 09/23 19:38 Order name: CBC with Diff; Complete Time: 21:06 sp3 09/23 19:38 Order name: Cardiac monitoring; Complete Time: 19:41 sp3 09/23 19:38 Order name: Labs collected and sent; Complete Time: 20:11 sp3 Administered Medications: 20:10 Drug: vancoMYCIN 1.25 grams Route: IVPB; Infused Over: 2 hrs; Site: PICC; ld1 Disposition Summary: 09/23/21 22:52 Discharge Ordered Location: Home sp3 Condition: Stable sp3 Diagnosis - Bacteremia sp3 Followup: sp3 - With: Private Physician - When: Upon discharge from the Emergency Department - Reason: Continuance of care Discharge Instructions: - Discharge Summary Sheet sp3 - You've Been Prescribed an Antibiotic in the Hospital for an Infection - [facility] sp3 Forms: - Medication Reconciliation Form sp3 - Thank You Letter sp3 - Antibiotic Education sp3 - Prescription Opioid Use sp3 Signatures: Dispatcher [employer] EDAshish Patel RN RN ll1 Alejandra Will RN RN ld1 Barrett Valentine MD MD sp3
[2021-09-23 23:09] VITALS: TEMP 98.2
[2021-09-23 23:13] VITALS: O2SAT 97
[2021-09-23 23:14] VITALS: BP 144/95
== END 2021-09-23 23:05 | disposition home or self-care (01) ==
LOC: ER 17:50
DX: R78.81 Bacteremia (principal); I48.91 Unspecified atrial fibrillation; E11.9 Type 2 diabetes mellitus without complications; I10 Essential (primary) hypertension
CPT/HCPCS: 36415; 80048; 85025; 96374; 99284; J3370; J7050

== ENCOUNTER 2021-09-24 14:26 | Inpatient (IN) | payer OTHER ==
--- OUTSIDE RECORDS SUMMARY | 2021-09-24 14:30 | XMS REPORT | Continuity of Care Document ---
:1940 Author Organization [facility] t Address [facility] [place] [address] Care Team Providers Name Role Phone CIVUNIGUNTA Attending Clinician Unavailable CIVUNIGUNTA Admitting Clinician Unavailable Problems This patient has no known problems. Allergies, Adverse Reactions, Alerts This patient has no known allergies or adverse reactions. Medications This patient has no known medications. Procedures This patient has no known procedures. Results Test Description Test Time Test Comments Results Result [facility] e Comments TISSUE EXAM 2018-10-04 Surgical Pathology 14:19:00 Report Case: [id number] Authorizing Provider: Jhonathan Sharma MD Collected: 09/25/2018 1808 Ordering Location: [address] Received: 09/26/2018 0927 Service Pathologist: Haris Jeter MD Specimen: Plaque, arterial plaque ARTERY, LEFT FEMORAL, ENDARTERECTOMY:CALCIFI C ATHEROSCLEROTIC PLAQUE Signing Pathologist Direct Phone Line: [phone] ally signed by Haris Jeter MD on 10/04/2018 at 2:19 [id number]; [id number] femoral artery plaqueArterial plaqueThe specimen is received in saline labeled with the patient's information labeled "arterial plaque" and consists of previously opened calcified segment of tissue measuring 2.5 cm in length x 0.5 cm in circumference. Digital Content Producer sections are submitted A1 for decalcification. CG/pl Performed POCT-GLUCOSE METER 2018-09-28 13:44:00 Test Item Value Reference Range Interpretation Comme nts POC-GLUCOSE METER (BEAKER) (test 326 mg/dL 70-110 H TESTED AT [facility] [address] code = 1538) [facility] 7[address] POCT-GLUCOSE [id number] 11:32:00 Test Item Value Reference Range Interpretation Comments POC-GLUCOSE METER 150 mg/dL 70-110 H TESTED AT [facility] [address] (BEAKER) (test code = [place] 1538) [id number] 04:26:00 Test Item Value Reference Range Interpretation Comments MAGNESIUM (BEAKER) (test code = 1.6 mg/dL 1.6-2.6 627) BASIC METABOLIC [id number] 04:26:00 Test Item Value Reference Range Interpretation [...] PATIEN TS. CBC W/PLT COUNT & AUTO [id number] 04:09:00 Test Item Value Reference Range Interpretation [...] 0-1 PERCENT (BEAKER) (test code = 2801) [id number] 03:49:00 Test Item Value Reference Range Interpretation Comments MAGNESIUM (BEAKER) (test code = 1.7 mg/dL 1.6-2.6 627) BASIC METABOLIC [id number] 03:49:00 Test Item Value Reference Range Interpretation [...] PATIEN TS. CBC W/PLT COUNT & AUTO [id number] 03:32:00 Test Item Value Reference Range Interpretation [...] 0-1 PERCENT (BEAKER) (test code = 2801) [id number] 10:17:00 Test Item Value Reference Range Interpretation Comments MAGNESIUM (BEAKER) (test code = 1.6 mg/dL 1.6-2.6 627) BASIC METABOLIC [id number] 10:17:00 Test Item Value Reference Range Interpretation [...] PATIEN TS. CBC W/PLT COUNT & AUTO [id number] 03:47:00 Test Item Value Reference Range Interpretation [...] 0-1 PERCENT (BEAKER) (test code = 2801) [id number] 17:44:00 Test Item Value Reference Range Interpretation Comments ACTIVATED CLOTTING TIME 131 sec TEST ED AT [place] [address] (BEAKER) (test code = [place] [facility] 441) [address] BLOOD GAS, [id number] 17:15:00 Test Item Value Reference Range Interpretation [...] code = 1819) 30.0 % SODIUM NA-STAT [id number] 17:15:00 Test Item Value Reference Range Interpretation Comments SODIUM (BEAKER) (test code = 381) 132 meq/L 135-148 L HGB/HCT (H&H) - STAT [id number] 17:15:00 Test Item Value Reference Range Interpretation Comments HEMOGLOBIN (BEAKER) (test code = 11.2 g/dL 13.0-16.8 L 410) HEMATOCRIT (BEAKER) (test code = 33.0 % 40.0-50.0 L 411) GLUCOSE-STAT [id number] 17:14:00 Test Item Value Reference Range Interpretation Comments GLUCOSE RANDOM (BEAKER) (test code 104 mg/dL 70-110 = 652) POTASSIUM-STAT [id number] 17:14:00 Test Item Value Reference Range Interpretation Comments POTASSIUM (BEAKER) (test code = 4.1 meq/L 3.6-5.5 379) [id number] 17:11:00 Test Item Value Reference Range Interpretation Comments ACTIVATED CLOTTING TIME 268 sec TEST ED AT [facility] 67 (BEAKER) (test code = [place] [facility] 441) [id number] 16:12:00 Test Item Value Reference Range Interpretation Comments ACTIVATED CLOTTING TIME 257 sec TEST ED AT [facility] [address] (BEAKER) (test code = [place] 441) [address] BASIC METABOLIC [id number] 07:04:00 Test Item Value Reference Range Interpretation [...] code = 413) URINALYSIS W/ REFLEX URINE [id number] 13:29:00 Test Item Value Reference Range Interpretation [...] SOURCE(BEAKER) (test code = 2795) BASIC METABOLIC [id number] 06:55:00 Test Item Value Reference Range Interpretation [...] 0-0 (BEAKER) (test code = 413) POCT-GLUCOSE [id number] 18:09:00 Test Item Value Reference Range Interpretation Comments POC-GLUCOSE METER 99 mg/dL 70-110 TESTED AT [facility] [address] ([facility] (test code = [place] [address] 1538) POCT-GLUCOSE [id number] 13:47:00 Test Item Value Reference Range Interpretation Comments POC-GLUCOSE METER 144 mg/dL 70-110 H TESTED AT [facility] [address] (BEAKER) (test code = [place] 1538) [address] U/S, [id number] 11:20:00Laterality?->Left Reason for exam:->left sided pleural effusion [...] Guard[place]ort Verified Date/Time: 09/23/2018 11:20:35 Reading Location: [address] Ortho Consult Reading Room PROTHROMBIN [id number] 05:40:00 Test Item Value Reference Range Interpretation Comments PROTIME (BEAKER) (test code = 14.7 seconds 11.7-14.7 759) INR (BEAKER) (test code = 370) 1.2 <=5.9 RECOMMENDED COUMADIN/WARFARIN INR THERAPY RANGESSTANDARD DOSE: 2.0 - 3.0 Includes: PROPHYLAXIS forvenous thrombosis, systemic embolization; TREATMENT for venous thrombosis and/or pulmonary embolus.HIGH RISK: Target INR is 2.5-3.5 for patients with mechanical heart valves.[id number] 05:40:00 Test Item Value Reference Range Interpretation Comments PARTIAL THROMBOPLASTIN TIME 31.6 seconds 22.5-36.0 (BEAKER) (test code = 760) [id number] 05:21:00 Test Item Value Reference Range Interpretation Comments MAGNESIUM (BEAKER) (test code = 1.6 mg/dL 1.6-2.6 627) BASIC METABOLIC [id number] 05:21:00 Test Item Value Reference Range Interpretation [...] S NOT APPLICABLE FOR DIALYSIS PATIEN TS. [id number] 05:20:00 Test Item Value Reference Range Interpretation Comments MAGNESIUM (BEAKER) (test code = 1.5 mg/dL 1.6-2.6 L 627) BASIC METABOLIC [id number] 05:20:00 Test Item Value Reference Range Interpretation [...] PATIEN TS. CBC W/PLT COUNT & AUTO [id number] 05:02:00 Test Item Value Reference Range Interpretation [...] 0-0 (BEAKER) (test code = 413) POCT-GLUCOSE [id number] 21:35:00 Test Item Value Reference Range Interpretation Comments POC-GLUCOSE METER 133 mg/dL 70-110 H TESTED AT [facility] [address] (BEAKER) (test code = [place] 1538) [address] POCT-GLUCOSE [id number] 17:37:00 Test Item Value Reference Range Interpretation Comments POC-GLUCOSE METER 147 mg/dL 70-110 H TESTED AT [facility] [address] (BEAKER) (test code = [place] 1538) [address] [id number] 17:19:00 Test Item Value Reference Range Interpretation Comments MAGNESIUM (BEAKER) (test code = 1.5 mg/dL 1.6-2.6 L 627) BASIC METABOLIC [id number] 17:19:00 Test Item Value Reference Range Interpretation [...] NOT APPLICABLE FOR DIALYSIS PATIEN TS. POCT-GLUCOSE [id number] 13:08:00 Test Item Value Reference Range Interpretation Comments POC-GLUCOSE METER 106 mg/dL 70-110 TESTED AT [facility] 67[address] ([facility] (test code = [facility] Skylar [facility] 1538) [address] POCT-GLUCOSE [id number] 21:49:00 Test Item Value Reference Range Interpretation Comments POC-GLUCOSE METER 116 mg/dL 70-110 H TESTED AT [facility] 67[address] ([facility] (test code = [facility] 1538) [address] POCT-GLUCOSE [id number] 17:56:00 Test Item Value Reference Range Interpretation Comments POC-GLUCOSE METER 142 mg/dL 70-110 H TESTED AT [facility] [address] ([facility] (test code = [facility] 1538) [address] CT, CTA, [id number] 14:55:00Addendum BeginsREPORT STATUS:A Addendum:There is increased density visualized in the left pleural fluid collection. Clinical correlation is needed if an inflammatory or hemorrhag ic process is suspected.I agree with the previously described non vascular findings. Signed: Shirlene Ackerman MDReport Verified Date/Time: 09/21/2018 14:55:20 Reading Location: [facility] P048 Angio Body Reading RoomAddendum EndsFINAL REPORT [...] have increased ca lcific atherosclerosis seen with fthh-tk-ljxnjejn lesion identified. The right common femoral arteryis [...] An addendum will be dictated by the Upholstery Auto Trimmer Radiologist regarding the nonvascular findings. Signed: Shawn Barnes Verified Date/Time: 09/21/2018 14:01:54 Reading Location: [place] [id number] Cardiology MRI CT, CTA [id number] 14:55:00 Addendum BeginsREPORT STATUS:A Addendum:There is increased density visualized in the left pleural fluid collection. Clinical correlation is needed if an inflammatory or hemorrhagic process is suspected.I agree with the previously described non vascular findings. Signed: Shirlene Ackerman Verified Date/Time: 09/21/2018 14:55:20 Reading Location: [place] [id number] Angio Body Reading RoomAddendum EndsFINAL REPORT CT [...] artery have increased calcific atherosclerosis seen with lruz-if-furjavmm lesion identified. The right common femoral arteryis [...] An addendum will be dictated by the Upholstery Auto Trimmer Radiologist regarding the nonvascular findings. Signed: Shawn Barnes Verified Date/Time: 09/21/2018 14:01:54 Reading Location: [place] [address] Cardiology MRI BASI METABOLIC [id number] 07:01:00 Test Item Value Reference Range Interpretation [...] mg/dL 8.4-10.2 (test code = 697) EGFR ([facility] (test 67 mL/min/1.73 ESTIMA RUTH GFR IS code = 1092) sq m NOT ACCURATE CREATININE CLEARANCE IN PREDICTING GLOMERULAR FILTRATION RATE . ESTIMATED GFR I S NOT APPLICABLE FOR DIALYSIS PATIEN TS. POCT-GLUCOSE [id number] 22:18:00 Test Item Value Reference Range Interpretation Comments POC-GLUCOSE METER 176 mg/dL 70-110 H TESTED AT [place] [address] ([facility] (test code = [facility] [place] [facility] 1538) [address] RAD, CHEST, 1 VIEW, NON [id number] 20:32:00Reason for exam:->SOBShould this be performed at [...] Rueda Verified Date/Time: 09/20/2018 20:32:40 Reading Location: [facility] Radiology Reading Room POCT- GLUCOSE [id number] 17:05:00 Test Item Value Reference Range Interpretation Comments POC-GLUCOSE METER 164 mg/dL 70-110 H TESTED AT [place] [address] ([facility] (test code = [facility] [place] [facility] 1538) [address] POCT-GLUCOSE [id number] 13:55:00 Test Item Value Reference Range Interpretation Comments POC-GLUCOSE METER 105 mg/dL 70-110 TESTED AT [place] [address] ([facility] (test code = [facility] [place] [facility] 1538) [address] POCT-GLUCOSE [id number] 09:01:00 Test Item Value Reference Range Interpretation Comments POC-GLUCOSE METER 116 mg/dL 70-110 H TESTED AT [place] [address] ([facility] (test code = [place] [facility] 1538) [address] BASIC METABOLIC [id number] 05:36:00 Test Item Value Reference Range Interpretation [...] NOT APPLICABLE FOR DIALYSIS PATIEN TS. POCT-GLUCOSE [id number] 23:13:00 Test Item Value Reference Range Interpretation Comments POC-GLUCOSE METER 119 mg/dL 70-110 H TESTED AT [place] [address] ([facility] (test code = [facility] 1538) [address] POCT-GLUCOSE [id number] 18:21:00 Test Item Value Reference Range Interpretation Comments POC-GLUCOSE METER 155 mg/dL 70-110 H TESTED AT [place] [address] ([facility] (test code = [facility] 1538) [address] HEMOGLOBIN [id number] 12:52:00 Test Item Value Reference Range Interpretation Comments HEMOGLOBIN A1C (BEAKER) (test code = 6.4 % 4.3-6.1 H 368) POCT-GLUCOSE [id number] 09:22:00 Test Item Value Reference Range Interpretation Comments POC-GLUCOSE METER 99 mg/dL 70-110 TESTED AT [place] [address] ([facility] (test code = [facility] [address] 1538) BASIC METABOLIC [id number] 06:48:00 Test Item Value Reference Range Interpretation [...] NOT APPLICABLE FOR DIALYSIS PATIEN TS. TROPONIN [id number] 06:46:00 Test Item Value Reference Range Interpretation [...] PERCENT (BEAKER) (test code = 2801) TROPONIN [id number] 01:37:00 Test Item Value Reference Range Interpretation [...] (BEAKER) (test code = 700) COMPREHENSIVE METABOLIC [id number] 18:56:00 Test Item Value Reference Range Interpretation [...] PATIEN TS. CBC W/PLT COUNT & AUTO [id number] 18:35:00 Test Item Value Reference Range Interpretation [...] PERCENT (BEAKER) (test code = 2801) POCT-GLUCOSE [id number] 17:14:00 Test Item Value Reference Range Interpretation Comments POC-GLUCOSE METER 172 mg/dL 70-110 H TESTED AT [facility] 67 ([facility] (test code = [place] 1538) [address]
[2021-09-24 16:26] LABS: Protime INR 1.21
[2021-09-24 16:28] LABS: Urine Blood Negative (Negative); Urine Glucose Negative (Negative); Urine Protein Negative (Negative); Urine pH 5.5 (5.0-7.0)
[2021-09-24 16:28] LABS: Absolute Lymphocytes (CBC) 1.6 K/uL (0.7-4.9); Basophils % 0.8 % (0-1.3); Hematocrit 34.2 % (39.6-49.0); Lymphocytes % 13.3 % (15.3-44.8); MPV 7.3 fL (7.6-11.3); RBC Red Blood Cell Count 3.72 M/uL (4.33-5.43)
[2021-09-24 16:40] LABS: Urine Bacteria NONE SEEN /HPF (NONE SEEN); Urine RBC NONE SEEN /HPF (NONE SEEN)
[2021-09-24 16:41] LABS: Urine Mucus 1+ /HPF (NONE SEEN)
[2021-09-24 16:45] LABS: ALT/SGPT 39 U/L (12-78); AST/SGOT 26 U/L (15-37); Alkaline Phosphatase 118 U/L (45-117); BUN Blood Urea Nitrogen 30 mg/dL (7-18); Bicarbonate 27 mmol/L (21-32); Bilirubin Direct 0.2 mg/dL (0-0.2); Bilirubin Total 0.6 mg/dL (0.2-1.0); Glucose Level 97 mg/dL (74-106); Magnesium 2.2 mg/dL (1.8-2.4); NT PRO-BNP 2890 pg/mL (<450); Potassium 3.5 mmol/L (3.5-5.1); Protein, Total 6.3 g/dL (6.4-8.2); Sodium Level 142 mmol/L (136-145); Troponin (Emerg Dept Use Only) < 0.02 ng/mL (0.0-0.045)
--- NOTE | 2021-09-24 18:24 | EDPHYS ---
Physician Documentation [facility] Name: Jeb Lubin Age: 81 yrs Sex: Male : 1940 Arrival Date: 09/24/2021 Time: 14:28 Bed 16 Private MD: ED Physician Felipe Loomis HPI: 09/24 15:45 This 81 yrs old Male presents to ER via Wheelchair with complaints of IV cp antibiotics-bacteremia. 15:45 Patient is a 81-year-old male who returns to the emergency room after being seen last cp night requesting IV antibiotics. Patient reports he was admitted here in this hospital on 09/13/2021 and discharged a few days later with a diagnosis of bacteremia. Patient reports he was discharged to a rehab facility at [facility] to receive IV antibiotics. Daughter reports there was some issues with the nursing staff there so they left the facility and was scheduled to have home health administer the IV antibiotics but this never occurred. Patient denies any current fevers, denies any pain, and denies any weakness.. Historical: - Allergies: 14:48 PENICILLINS; vg1 14:48 Xarelto; vg1 - Home Meds: 14:48 atorvastatin 40 mg Oral tab 1 tab once daily [Active]; clopidogrel 75 mg Oral tab 1 tab vg1 once daily [Active]; ferrous gluconate 324 mg (36 mg iron) Oral tab daily [Active]; furosemide 80 mg Oral tab 1 tab once daily [Active]; galantamine 4 mg Oral tab 1 tab 2 times per day [Active]; losartan 100 mg Oral tab 1 tab once daily [Active]; memantine 10 mg Oral tab 1 tab 2 times per day [Active]; pantoprazole 40 mg Oral TbEC once daily [Active]; - PMHx: 14:48 Atrial Fib; Hypertension; Diabetes - NIDDM; Polio; as a kid; vg1 - PSHx: 14:48 Coronary artery bypass graft; heart valve replacement; vg1 - Immunization history:: Client reports having NOT received the Covid vaccine. - Social history:: Smoking status: Patient/guardian denies using tobacco, the patient reports quitting approximately 40 years ago. ROS: 15:50 All other systems are negative. cp Exam: 15:55 Constitutional: The patient appears in no acute distress, alert, awake, comfortable, cp non-diaphoretic, non-toxic, well developed, well nourished. 15:55 Head/Face: Normocephalic, atraumatic. cp 15:55 Eyes: Periorbital structures: appear normal, Conjunctiva: normal, no exudate, no injection, Sclera: no appreciated abnormality, Lids and lashes: appear normal, bilaterally. 15:55 ENT: External ear(s): are unremarkable, Nose: is normal, Mouth: Lips: moist, Oral mucosa: moist, Posterior pharynx: Airway: no evidence of obstruction, patent. 15:55 Neck: ROM/movement: is normal, is supple, without pain, no range of motions limitations, no meningismus. 15:55 Chest/axilla: Inspection: normal, Palpation: is normal, no crepitus, no tenderness. 15:55 Cardiovascular: Rate: normal, Rhythm: regular, Edema: is not appreciated, JVD: is not appreciated. 15:55 Respiratory: the patient does not display signs of respiratory distress, Respirations: normal, no use of accessory muscles, no retractions, labored breathing, is not present, Breath sounds: decreased breath sounds, are not appreciated, stridor, is not appreciated, wheezing: is not appreciated. 15:55 Abdomen/GI: Inspection: abdomen appears normal, Palpation: abdomen is soft and non-tender, in all quadrants. 15:55 Back: pain, is absent, ROM is normal. 15:55 Skin: cellulitis, is not appreciated, no rash present. 15:55 Neuro: Orientation: to person, place \\T\\ time. Mentation: is normal, Motor: moves all fours, strength is normal, Sensation: is normal. 18:07 ECG was reviewed by the Attending Physician. cp Vital Signs: 14:44 BP 138 / 83; Pulse 88; Resp 15; Temp 97.7(O); Pulse Ox 100% ; Weight 69.85 kg; Height 5 vg1 ft. 4 in. (162.56 cm); Pain 2/10; 15:00 BP 180 / 80; Pulse 96; Resp 22 S; Pulse Ox 95% on R/A; jg9 16:00 BP 174 / 72; Pulse 94; Resp 17; Pulse Ox 96% on R/A; jg9 17:00 BP 170 / 79; Pulse 99; Resp 18; Pulse Ox 92% on R/A; jg9 17:30 BP 147 / 83; Pulse 77; Resp 17; Pulse Ox 95% on R/A; jg9 18:15 BP 142 / 93; Pulse 68; Resp 20 S; Pulse Ox 98% on R/A; jg9 20:00 BP 138 / 88; Pulse 90; Resp 17; Temp 98.2; Pulse Ox 97% on R/A; mr2 14:44 Body Mass Index 26.43 (69.85 kg, 162.56 cm) vg1 MDM: 16:00 Differential Diagnosis sepsis, UTI, pneumonia, cellulitis, bacteremia. 18:00 Data reviewed: vital signs, nurses notes, lab test result(s), EKG. 18:00 Test interpretation: by ED physician or midlevel provider: ECG. 18:20 Physician consultation: Jairon SORIANO was contacted at 18:20, regarding admission, to the telemetry unit. patient's condition. 18:24 Patient medically screened. 12/16 15:51 Order name: Basic Metabolic Panel 12/16 15:51 Order name: CBC with Diff 12/16 15:51 Order name: LFT's 12/16 15:51 Order name: Magnesium; Complete Time: 17:44 12/16 15:51 Order name: NT PRO-BNP; Complete Time: 17:44 12/16 15:51 Order name: PT-INR; Complete Time: 16:36 12/16 15:51 Order name: Troponin (emerg Dept Use Only); Complete Time: 17:44 12/16 15:51 Order name: Blood Culture Adult (2) 12/16 15:51 Order name: Procalcitonin; Complete Time: 17:44 12/16 17:45 Interpretation: Abnormal: Procalcitonin 0.10. 12/16 15:51 Order name: Lactate; Complete Time: 17:44 12/16 15:51 Order name: Vancomycin, Peak; Complete Time: 17:44 12/16 17:45 Interpretation: Abnormal: VANP 15.4. 12/16 15:51 Order name: Vancomycin,Trough; Complete Time: 17:44 12/16 15:51 Order name: Urine Microscopic Only; Complete Time: 17:44 12/16 15:51 Order name: Basic Metabolic Panel; Complete Time: 17:44 EDMS 09/24 17:45 Interpretation: Normal except: BUN 30; CRE 1.47; GFR 46. 09/24 15:51 Order name: EKG; Complete Time: 15:51 09/24 15:51 Order name: Cardiac monitoring; Complete Time: 16:50 09/24 15:51 Order name: EKG - Nurse/Tech; Complete Time: 16:50 09/24 15:51 Order name: IV Saline Lock; Complete Time: 16:50 09/24 15:51 Order name: Labs collected and sent; Complete Time: 16:50 09/24 15:51 Order name: O2 Per Protocol; Complete Time: 16:50 09/24 15:51 Order name: O2 Sat Monitoring; Complete Time: 16:50 09/24 15:51 Order name: Urine Dipstick-Ancillary (obtain specimen); Complete Time: 16:50 09/24 15:51 Order name: CBC with Automated Diff; Complete Time: 16:36 EDMS 09/24 16:36 Interpretation: Normal except: WBC 11.70; RBC 3.72; HGB 11.5; HCT 34.2; MPV 7.3; LYM% cp 13.3; NEUT A 8.3. 09/24 15:51 Order name: Liver (Hepatic) Function; Complete Time: 17:44 EDMS 09/24 16:28 Order name: Urine Dipstick-Ancillary; Complete Time: 16:36 EDMS 09/24 18:36 Order name: SARS-COV-2 RT PCR (Document "Date of Onset" if Symptomatic) em1 EC:07 Rate is 91 beats/min. Rhythm is irregular. QRS interval is normal. QT interval is cp normal. Interpreted by me. Reviewed by me. Administered Medications: 19:06 Drug: vancoMYCIN 1.5 grams Route: IVPB; Rate: calculated rate; Site: right antecubital; jg9 Disposition: 18:45 Chart complete. 09/25 08:08 Co-signature as Attending Physician, Felipe Loomis MD I agree with the assessment and kdr plan of care. Disposition Summary: 09/24/21 18:24 Hospitalization Ordered Hospitalization Status: Inpatient Admission cp Provider: Jairon Correa cp Location: Telemetry/[facility] (Inpatient) cp Condition: Stable cp Problem: new cp Symptoms: are unchanged cp Bed/Room Type: Standard cp Room Assignment: 228(09/24/21 20:06) mw Diagnosis - Bacteremia cp Forms: - Medication Reconciliation Form cp - SBAR form cp Signatures: Dispatcher [employer] Shabana Richard RN RN mw Felipe Loomis MD MD kdr Page, Corey, PA PA cp Garcia, Victoria, RN RN vg1 Ju Ayalag9 Corrections: (The following items were deleted from the chart) 09/24 20:06 18:24 cp mw
--- NOTE | 2021-09-24 18:24 | ER ---
Nurse's Notes [facility] Name: Jeb Lubin Age: 81 yrs Sex: Male : 1940 Arrival Date: 09/24/2021 Time: 14:28 Bed 16 Private MD: Diagnosis: Bacteremia Presentation: 09/24 14:44 Chief complaint: Patient's son or daughter states: pt was d/c to [facility] on 09/19/21 vg1 with orders that stated that needed IV antibiotics. Home health stated pt needed to come to ED to receive antibiotics. Coronavirus screen: Vaccine status: Patient reports being unvaccinated. Client denies travel out of the [place] in the last 14 days. Ebola Screen: Patient negative for fever greater than or equal to 101.5 degrees Fahrenheit, and additional compatible Ebola Virus Disease symptoms. Initial Sepsis Screen: Does the patient meet any 2 criteria? No. Patient's initial sepsis screen is negative. Does the patient have a suspected source of infection? No. Patient's initial sepsis screen is negative. Risk Assessment: Do you want to hurt yourself or someone else? Patient reports no desire to harm self or others. Onset of symptoms was September 19, 2021. 14:44 Method Of Arrival: Wheelchair vg1 14:44 Acuity: CECILIA 3 vg1 Triage Assessment: 14:48 General: Appears in no apparent distress. uncomfortable, Behavior is calm, cooperative. vg1 Pain: Complains of pain in right foot and left foot Pain currently is 2 out of 10 on a pain scale. Historical: - Allergies: 14:48 PENICILLINS; vg1 14:48 Xarelto; vg1 - Home Meds: 14:48 atorvastatin 40 mg Oral tab 1 tab once daily [Active]; clopidogrel 75 mg Oral tab 1 tab vg1 once daily [Active]; ferrous gluconate 324 mg (36 mg iron) Oral tab daily [Active]; furosemide 80 mg Oral tab 1 tab once daily [Active]; galantamine 4 mg Oral tab 1 tab 2 times per day [Active]; losartan 100 mg Oral tab 1 tab once daily [Active]; memantine 10 mg Oral tab 1 tab 2 times per day [Active]; pantoprazole 40 mg Oral TbEC once daily [Active]; - PMHx: 14:48 Atrial Fib; Hypertension; Diabetes - NIDDM; Polio; as a kid; vg1 - PSHx: 14:48 Coronary artery bypass graft; heart valve replacement; vg1 - Immunization history:: Client reports having NOT received the Covid vaccine. - Social history:: Smoking status: Patient/guardian denies using tobacco, the patient reports quitting approximately 40 years ago. Screenin:30 Abuse screen: Denies threats or abuse. Denies injuries from another. Nutritional jg9 screening: No deficits noted. Tuberculosis screening: No symptoms or risk factors identified. Fall Risk None identified. Assessment: 14:45 General: Appears in no apparent distress. Behavior is calm, cooperative, appropriate jg9 for age. Pain: Denies pain. Neuro: No deficits noted. Cardiovascular: No deficits noted. Respiratory: No deficits noted. GI: No deficits noted. : No deficits noted. EENT: No deficits noted. Derm: No deficits noted. Musculoskeletal: No deficits noted. 21:06 Reassessment: report given to Beatriz ASHBY for room 228. bb Vital Signs: 14:44 BP 138 / 83; Pulse 88; Resp 15; Temp 97.7(O); Pulse Ox 100% ; Weight 69.85 kg; Height 5 vg1 ft. 4 in. (162.56 cm); Pain 2/10; 15:00 BP 180 / 80; Pulse 96; Resp 22 S; Pulse Ox 95% on R/A; jg9 16:00 BP 174 / 72; Pulse 94; Resp 17; Pulse Ox 96% on R/A; jg9 17:00 BP 170 / 79; Pulse 99; Resp 18; Pulse Ox 92% on R/A; jg9 17:30 BP 147 / 83; Pulse 77; Resp 17; Pulse Ox 95% on R/A; jg9 18:15 BP 142 / 93; Pulse 68; Resp 20 S; Pulse Ox 98% on R/A; jg9 20:00 BP 138 / 88; Pulse 90; Resp 17; Temp 98.2; Pulse Ox 97% on R/A; mr2 14:44 Body Mass Index 26.43 (69.85 kg, 162.56 cm) vg1 ED Course: 14:28 Patient arrived in ED. as 14:48 Triage completed. vg1 14:48 Arm band placed on. vg1 14:52 Felipe Loomis MD is Attending Physician. kdr 15:14 Marshal Ghosh PA is PHCP. cp 15:27 Ju Ayala is Primary Nurse. jg9 16:00 No apparent distress. Resting quietly. Awaiting lab results, Awaiting radiology jg9 results. Awaiting disposition. Pt visited by daughter. 16:00 Patient has correct armband on for positive identification. Bed in low position. Call jg9 light in reach. Side rails up X 1. 16:00 Accessed PICC line. Clean \T\ dry. Dressing intact. Good blood return. Flushes easily. jg9 17:30 Diet: Patient given snack. jg9 18:20 EKG done, by ED staff, reviewed by Marshal SORIANO. mb7 18:21 No apparent distress. Resting quietly. Awaiting bed assignment. Pt visited by son. jg9 18:22 Pillow given. jg9 18:23 Jairon Correa PA is Hospitalizing Provider. cp 19:10 No provider procedures requiring assistance completed. mr2 21:24 Patient admitted, IV remains in place. mr2 Administered Medications: 19:06 Drug: vancoMYCIN 1.5 grams Route: IVPB; Rate: calculated rate; Site: right antecubital; jg9 Outcome: 18:24 Decision to Hospitalize by Provider. cp 21:24 Admitted to Med/surg accompanied by nurse. mr2 21:24 Condition: stable 21:24 Instructed on the need for admit. 21:29 Patient left the ED. mr2 Signatures: Felipe Loomis MD MD kdr Martinez, Amelia as Rachel Morton, RN RN bb Marshal Ghosh PA PA cp Garcia, Victoria, RN RN vg1 Marco Antonio Strauss, ISMA RN mr2 Dorota Su mb7 Ju Ayala jg9
[2021-09-24] MEDS ORDERED: VANCOMYCIN 1 GM/VIAL ONE (18:49)
[2021-09-24] MEDS ORDERED: VANCOMYCIN 1.5 GM in NA CHLORIDE 0.9% 500 ML IVPB ONE (19:00)
--- NOTE | 2021-09-24 20:46 | P.HP ---
Certification for Inpatient Patient admitted to: Inpatient With expected LOS: <2 Midnights Patient will require the following post-hospital care: None Practitioner: I am a practitioner with admitting privileges, knowledge of patient current condition, hospital course, and medical plan of care. Services: Services provided to patient in accordance with Admission requirements found in Title 42 Section 412.3 of the Code of Federal Regulations Patient History Date of Service: 09/24/21 Reason for admission: bacteremia History of Present Illness: Mr. Lubin is an 81 yo M with CAD, CHF, DM who was recently discharged from the hospital after a CHF exacerbation. He was discharged to a intermediate for 10 days in order to receive IV vancomycin for bacteremia, physical therapy, and wean off O2. Family did not believe that the nursing staff was capable of administering the IV antibiotics appropriately so they decided to dischrage hte patient AMA. They tried to coordinate with home health to have IV antibiotics administered at home through his PICC line but this never occurred. Patient is being admitted to the hospital to continue IV antibiotic therapy while social work coordinates with home health and the infusion company to complete treatment at home. Patient is not have any acute complaints. WBC 11.7 BUN 30 Cr 1.47 GFR 46 BNP 2890 procal 0.10 Allergies Penicillins Allergy (Verified 03/16/21 10:58) Hives/Rash rivaroxaban [From Xarelto] Adverse Reaction (Verified 03/16/21 10:58) GI BLEED Home Medications: Acetaminophen [Tylenol] 2 tab PO PRN PRN 09/13/21 Ascorbic Acid [Vitamin C with Mackenzie Hips] 1 tab PO DAILY 09/13/21 Atorvastatin Calcium [Lipitor] 40 mg PO BEDTIME 09/13/21 Cholecalciferol (Vitamin D3) [Vitamin D3] 5,000 units PO BID 09/13/21 Clopidogrel Bisulfate [Plavix*] 75 mg PO DAILY 09/13/21 Dorzolamide HCl [Trusopt] 1 drop EACH EYE BID 09/13/21 Ferrous Gluconate 1 tab PO DAILY 09/13/21 Furosemide 1 tab PO DAILY 09/13/21 Galantamine HBr [Galantamine ER] 4 mg PO BID 09/13/21 Glucosamine/Chondr Villarreal A Sod [Osteo Bi-Flex Caplet] 1 tab PO BID 09/13/21 Losartan Potassium 1 tab PO DAILY 09/13/21 Memantine HCl 1 tab PO BID 09/13/21 Metoprolol Tartrate 100 mg PO BID 09/13/21 Multivit-Minerals/FA/Lycopene [One Daily Tablet] 1 tab PO DAILY 09/13/21 Alden-3 Fatty Acids [Alden-3] 1 tab PO BID 09/13/21 Pantoprazole [Protonix Tab*] 1 tab PO DAILY 09/13/21 Timolol Maleate/Pf [Timolol Maleate 0.5% Eye Drop] 1 drop EACH EYE BID 09/13/21 Vit A,C & E/Lutein/Minerals [Ocuvite Tablet] 1 tab PO DAILY 09/13/21 Zinc 1 tab PO DAILY 09/13/21 Docusate [Colace Cap*] 100 mg PO BID cap 09/19/21 Vancomycin/0.9 % Sod Chloride [Vanco 1.25 gm/250 ml-0.9% NaCl] 1.25 gm IV DAILY 10 Days plast..bag 09/19/21 - Past Medical/Surgical History Diabetic: No -: HTN -: High Cholesterol -: Vascular Dementia -: CABG -: Diabetes mellitus type 2 -: CAD -: polio during childhood -: A. Fib -: Triple Bypass -: Aortic Valve Replacement-bovine Psychosocial/ Personal History: Patient currently lives at home alone - Family History Brother -: Heart disease, Other (see notes) Notes: [place] Father -: Heart disease Mother -: Heart disease - Social History Smoking Status: Never smoker Alcohol use: No CD- Drugs: No Caffeine use: Yes Place of Residence: Home Review of Systems Unremarkable Physical Examination - Physical Exam General: Alert, In no apparent distress HEENT: Atraumatic, PERRLA, Mucous membr. moist/pink, EOMI, Sclerae nonicteric Neck: Supple, 2+ carotid pulse no bruit, No LAD, Without JVD or thyroid abnormality Respiratory: Clear to auscultation bilaterally, Normal air movement Cardiovascular: Regular rate/rhythm, Normal S1 S2 Gastrointestinal: Normal bowel sounds, No tenderness Musculoskeletal: No tenderness Integumentary: No rashes Neurological: Normal speech, Normal strength at 5/5 x4 extr, Normal tone, Normal affect Lymphatics: No axilla or inguinal lymphadenopathy - Studies Laboratory Data (last 24 hrs) 09/24/21 16:05: PT 13.9 H, INR 1.21 09/24/21 16:05: WBC 11.70 H, Hgb 11.5 L, Hct 34.2 L, Plt Count 243 09/24/21 16:05: Sodium 142, Potassium 3.5, BUN 30 H, Creatinine 1.47 H, Glucose 97, Magnesium 2.2, Total Bilirubin 0.6, AST 26, ALT 39, Alkaline Phosphatase 118 H Assessment and Plan - Problems (Diagnosis) (1) CHF (congestive heart failure) Onset Date: 09/08/18 Current Visit: No Status: Chronic Qualifiers: Heart failure type: unspecified Heart failure chronicity: chronic Qualified Code(s): I50.9 - Heart failure, unspecified (2) Chronic atrial fibrillation Current Visit: No Status: Chronic (3) Dementia Current Visit: No Status: Chronic Qualifiers: Dementia type: unspecified type Dementia behavioral disturbance: without behavioral disturbance Qualified Code(s): F03.90 - Unspecified dementia without behavioral disturbance (4) Gram-positive bacteremia Current Visit: No Status: Acute (5) CAD (coronary artery disease) Onset Date: 09/08/18 Current Visit: No Status: Chronic Qualifiers: Coronary Disease-Associated Artery/Lesion type: unspecified vessel or lesion type [place] vs. transplanted heart: [place] heart Associated angina: without angina Qualified Code(s): I25.10 - Atherosclerotic heart disease of [place] coronary artery without angina pectoris (6) Diabetes mellitus Onset Date: 09/08/18 Current Visit: No Status: Chronic Qualifiers: Diabetes mellitus type: type 2 Diabetes mellitus director long term care insulin use: unspecified director long term care insulin use status Diabetes mellitus complication status: with kidney complications Diabetes mellitus complication detail: with chronic kidney disease Chronic kidney disease stage 3 subtype: stage 3a (GFR 45-59) (7) Hypertension, essential Onset Date: 09/08/18 Current Visit: No Status: Chronic - Plan social work consulted continue IV vancomycin continue PO lasix, daily weights, and fluid restriction O2 as needed reconcile and continue home medications DVT ppx Discharge Plan: Home Plan to discharge in: 24 Hours - Advance Directives Does patient have a Living Will: Yes Does patient have a Durable POA for Healthcare: No - Code Status/Comfort Care Code Status Assessed: Yes (full code ) Critical Care: No Time Spent Managing Pts Care (In Minutes): 70
[2021-09-24] MEDS ORDERED: ONDANSETRON 4 MG/2 ML VIAL IV PRN (21:37)
[2021-09-24] MEDS: INSULIN -REGULAR HUMAN 50 UNIT/0.5 ML ML SQ SCH (21:37)
[2021-09-24] MEDS ORDERED: D50W 25 GM/50 ML SYRINGE IV PRN (21:37)
[2021-09-24] MEDS ORDERED: ACETAMINOPHEN 500 MG TAB PO PRN (21:37)
[2021-09-24] MEDS ORDERED: GLUCAGON 1 MG/VIAL IM PRN (21:37)
[2021-09-24] MEDS: ATORVASTATIN 40 MG TAB PO SCH (22:46)
[2021-09-24] MEDS: DOCUSATE NA 100 MG CAP PO SCH (22:46)
[2021-09-24] MEDS: MEMANTINE HCL 10 MG TABLET PO SCH (22:46)
[2021-09-25 00:32] LABS: Urine Appearance CLEAR (Clear); Urine Bilirubin NEGATIVE (Negative); Urine Blood NEGATIVE (Negative); Urine Color YELLOW (Yellow); Urine Glucose NEGATIVE (Negative); Urine Protein NEGATIVE (Negative); Urine Specific Gravity 1.015 (1.005-1.030)
[2021-09-25 00:34] LABS: Urine Microscopic Reflex NO UMIC
[2021-09-25] MEDS ORDERED: HYDRALAZINE HCL 20 MG/ML VIAL IV PRN (05:14)
[2021-09-25 06:16] LABS: Absolute Lymphocytes (CBC) 1.3 K/uL (0.7-4.9); Basophils % 1.2 % (0-1.3); Hematocrit 34.3 % (39.6-49.0); Lymphocytes % 11.8 % (15.3-44.8); MPV 7.4 fL (7.6-11.3); RBC Red Blood Cell Count 3.74 M/uL (4.33-5.43)
[2021-09-25 06:36] LABS: Albumin 2.9 g/dL (3.4-5.0); Bilirubin Total 0.8 mg/dL (0.2-1.0); Phosphorus 3.3 mg/dL (2.5-4.9); Potassium 3.3 mmol/L (3.5-5.1); Protein, Total 6.4 g/dL (6.4-8.2)
[2021-09-25] MEDS: INSULIN -REGULAR HUMAN 50 UNIT/0.5 ML ML SQ SCH ×4 (07:30→20:16)
[2021-09-25] MEDS ORDERED: INFLUENZA VACCINE (for 6+ mo) 0.5 ML DOSE IMVAC ONE (08:00)
[2021-09-25] MEDS: PANTOPRAZOLE 40MG TABLET PO SCH (08:30)
[2021-09-25] MEDS ORDERED: FUROSEMIDE 40 MG TABLET PO SCH (09:00)
[2021-09-25] MEDS ORDERED: LOSARTAN POTASSIUM 50 MG TABLET PO SCH (09:00)
[2021-09-25] MEDS ORDERED: POTASSIUM CL SA 10 MEQ TAB PO ONE (09:00)
[2021-09-25] MEDS: MEMANTINE HCL 10 MG TABLET PO SCH ×2 (09:27→20:16)
[2021-09-25] MEDS: DOCUSATE NA 100 MG CAP PO SCH ×2 (09:28→20:14)
[2021-09-25] MEDS: CLOPIDOGREL 75 MG TABLET PO SCH (09:28)
[2021-09-25] MEDS: METOPROLOL TAR 50 MG TAB PO SCH ×2 (09:28→20:15)
--- NOTE | 2021-09-25 14:02 | P.PN ---
Subjective Date of Service: 09/25/21 Chief Complaint: bacteremia Subjective: No new changes, Tolerating diet Physical Examination - Vital Signs Temperature: 97.4 F Blood Pressure: 148/95 Pulse: 115 Respirations: 20 Pulse Ox (%): 100 - Physical Exam General: Alert, In no apparent distress, Oriented x3 HEENT: Atraumatic, Normocephalic, PERRLA Neck: Supple, 2+ carotid pulse no bruit, JVD not distended Respiratory: Clear to auscultation bilaterally, Normal air movement Cardiovascular: No edema, Normal S1 S2, Irregular heart rate/rhythm Gastrointestinal: Normal bowel sounds, Soft and benign, Non-distended Musculoskeletal: No clubbing, No swelling Integumentary: No rashes, No breakdown, No significant lesion Neurological: Sensation intact, Cranial nerves 3-12 intact - Studies Laboratory Data (last 24 hrs) 09/24/21 16:05: PT 13.9 H, INR 1.21 09/24/21 16:05: WBC 11.70 H, Hgb 11.5 L, Hct 34.2 L, Plt Count 243 09/24/21 16:05: Sodium 142, Potassium 3.5, BUN 30 H, Creatinine 1.47 H, Glucose 97, Magnesium 2.2, Total Bilirubin 0.6, AST 26, ALT 39, Alkaline Phosphatase 118 H Assessment And Plan - Current Problems (Diagnosis) (1) Acute on chronic diastolic heart failure Current Visit: No Status: Acute (2) CHF exacerbation Current Visit: No Status: Acute Qualifiers: Heart failure type: unspecified Qualified Code(s): I50.9 - Heart failure, unspecified (3) Gram-positive bacteremia Current Visit: No Status: Acute (4) Pneumonia Current Visit: No Status: Acute (5) Pulmonary hypertension Onset Date: 09/08/18 Current Visit: No Status: Acute (6) SVT (supraventricular tachycardia) Current Visit: No Status: Acute (7) Unstable angina Onset Date: 06/24/15 Current Visit: No Status: Acute (8) CHF (congestive heart failure) Onset Date: 09/08/18 Current Visit: No Status: Chronic Qualifiers: Heart failure type: unspecified Heart failure chronicity: chronic Qualified Code(s): I50.9 - Heart failure, unspecified (9) Chronic atrial fibrillation Current Visit: No Status: Chronic (10) Dementia Current Visit: No Status: Chronic Qualifiers: Dementia type: unspecified type Dementia behavioral disturbance: without behavioral disturbance Qualified Code(s): F03.90 - Unspecified dementia without behavioral disturbance - Plan Recent Pneumonia with staph hemolyticus bacteremiadue to pneumonia, on day 13 of IV antibiotics Continue IV vancomycin for nowday to complete 14-day course Can switch to Levaquin if needed since culture was sensitive to Levaquin in the past Recent exacerbation of diastolic CHFstill mild symptoms with elevated BNP of greater than 2800 Increase Lasix We will replete potassium Chronic A. fib with still RVR, increase beta-sue Continue regimen Hypertensioncontrolled follow with increase beta-sue and Lasix DVT prophylaxison anticoagulation Disposition possible discharge in a.m. if improved oxygenation Chronic home O2 usewean as tolerated
[2021-09-25 14:54] LABS: Potassium 3.8 mmol/L (3.5-5.1)
[2021-09-25] MEDS: DILTIAZEM HCL 120 MG SR CAP PO SCH (15:00)
[2021-09-25] MEDS ORDERED: FUROSEMIDE 40 MG/4 ML VIAL IV ONE (15:00)
[2021-09-25] MEDS: OSTEO BI FLEX PO SCH (16:24)
--- NOTE | 2021-09-25 17:55 | RAD REPORT ---
EXAM DESCRIPTION: RAD - Chest Single View - 09/25/2021 5:41 pm CLINICAL HISTORY: follow up of pulm edema COMPARISON: Chest Single View dated 09/18/2021; Chest Single View dated 09/16/2021; Chest Single View dated 09/13/2021; Chest Single View dated 08/28/2021hest Single View dated 09/18/2021; Chest Single View dated 09/16/2021; Chest Single View dated 09/13/2021; Chest Single View dated 1Chest Sing le View dated 09/18/2021; Chest Single View dated 09/16/2021; Chest Single View dated 09/13/2021; Chest Single View dated 08/28/2021 FINDINGS: Lines: Right subclavian approach PICC with tip overlying the SVC. Lungs: Left basilar opacities again noted. Pleural: Unchanged small moderate left pleural effusion. Cardiac: Cardiomegaly. Sternotomy. Aortic valve prosthesis. Bones: No acute fractures. Other: IMPRESSION: Unchanged small tp moderate left pleural effusion and underlying atelectasis.
[2021-09-25] MEDS ORDERED: VANCOMYCIN 1.25 GM in NA CHLORIDE 0.9% 250 ML IVPB SCH ×2 (19:00→21:00)
[2021-09-25] MEDS: POTASSIUM CL SA 10 MEQ TAB PO SCH (20:14)
[2021-09-25] MEDS: FUROSEMIDE 40 MG TABLET PO SCH (20:15)
[2021-09-25] MEDS: ATORVASTATIN 40 MG TAB PO SCH (20:15)
[2021-09-25] MEDS: GALANTAMINE HBR 4 MG TABLET PO SCH (20:19)
[2021-09-25 21:31] VITALS: BMI 27.4
[2021-09-26] MEDS: INSULIN -REGULAR HUMAN 50 UNIT/0.5 ML ML SQ SCH ×2 (07:30→11:30)
[2021-09-26 07:46] LABS: Albumin 2.9 g/dL (3.4-5.0); Magnesium 2.1 mg/dL (1.8-2.4); Potassium 3.8 mmol/L (3.5-5.1)
[2021-09-26] MEDS: PANTOPRAZOLE 40MG TABLET PO SCH (08:45)
[2021-09-26] MEDS ORDERED: LOSARTAN POTASSIUM 50 MG TABLET PO SCH (09:00)
[2021-09-26] MEDS: POTASSIUM CL SA 10 MEQ TAB PO SCH (09:00)
[2021-09-26] MEDS ORDERED: VANCOMYCIN 1.25 GM in NA CHLORIDE 0.9% 250 ML IVPB SCH (09:00)
[2021-09-26] MEDS: OSTEO BI FLEX PO SCH (09:00)
[2021-09-26] MEDS: FUROSEMIDE 40 MG TABLET PO SCH (09:00)
[2021-09-26 09:24] LABS: Bilirubin Total 0.6 mg/dL (0.2-1.0)
[2021-09-26] MEDS: GALANTAMINE HBR 4 MG TABLET PO SCH (09:50)
[2021-09-26] MEDS: DOCUSATE NA 100 MG CAP PO SCH (09:50)
[2021-09-26] MEDS: MEMANTINE HCL 10 MG TABLET PO SCH (09:51)
[2021-09-26] MEDS: CLOPIDOGREL 75 MG TABLET PO SCH (09:51)
[2021-09-26] MEDS: METOPROLOL TAR 50 MG TAB PO SCH (09:51)
[2021-09-26] MEDS: DILTIAZEM HCL 120 MG SR CAP PO SCH (09:54)
--- NOTE | 2021-09-26 10:51 | P.DS ---
Admission Date: 09/24/21 Discharge Date: 09/26/21 Disposition: ROUTINE DISCHARGE Discharge Condition: FAIR Reason for Admission: bacteremia - Problems (1) Acute on chronic diastolic heart failure Current Visit: No Status: Acute (2) CHF exacerbation Current Visit: No Status: Acute Qualifiers: Heart failure type: unspecified Qualified Code(s): I50.9 - Heart failure, unspecified (3) Gram-positive bacteremia Current Visit: No Status: Acute (4) Pneumonia Current Visit: No Status: Acute (5) Pulmonary hypertension Onset Date: 09/08/18 Current Visit: No Status: Acute (6) SVT (supraventricular tachycardia) Current Visit: No Status: Acute (7) Unstable angina Onset Date: 06/24/15 Current Visit: No Status: Acute (8) CHF (congestive heart failure) Onset Date: 09/08/18 Current Visit: No Status: Chronic Qualifiers: Heart failure type: unspecified Heart failure chronicity: chronic Qualified Code(s): I50.9 - Heart failure, unspecified (9) Chronic atrial fibrillation Current Visit: No Status: Chronic (10) Dementia Current Visit: No Status: Chronic Qualifiers: Dementia type: unspecified type Dementia behavioral disturbance: without behavioral disturbance Qualified Code(s): F03.90 - Unspecified dementia without behavioral disturbance Brief History of Present Illness: History of Present Illness: Mr. Lubin is an 81 yo M with CAD, CHF, DM who was recently discharged from the hospital after a CHF exacerbation. [facility] in order to receive IV vancomycin for bacteremia, physical therapy, and wean off O2. Family did not believe that the nursing staff was capable of administering the IV antibiotics appropriately so they decided to dischrage hte patient AMA. They tried to coordinate with home health to have IV antibiotics administered at home through his PICC line but this never occurred. Patient is being admitted to the hospital to continue IV antibiotic therapy while social work coordinates with home health and the infusion company to complete treatment at home. Patient is not have any acute complaints. WBC 11.7 BUN 30 Cr 1.47 GFR 46 BNP 2890 procal 0.10 Allergies Penicillins Allergy (Verified 03/16/21 10:58) Hives/Rash rivaroxaban [From Xarelto] Adverse Reaction (Verified 03/16/21 10:58) GI BLEED Hospital Course: 81 year-old male with recent CHF exacerbation and bacteremia on prolonged antibiotics with vancomycin every 36 hours for total of 14 days since 09/13/21 admitted for failure to get antibiotics as outpatient. Patient was kept in the hospital and complete the total course of antibiotics treatment. He was given vancomycin today today. Patient on admission was noted with elevated heart rate, Cardizem was added to metoprolol for rate control. His dose of diuretic was also increased for mild elevated BNP. Patient was weaned off his previous home O2. Patient is doing better now, tolerating p.o. well. Will be discharged home today after completing antibiotics course Vital Signs/Physical Exam: Temp Pulse Resp BP Pulse Ox 97.9 F 71 18 170/86 H 99 09/26/21 08:00 09/26/21 08:00 09/26/21 08:00 09/26/21 09:54 09/26/21 08:00 General: Alert, In no apparent distress, Oriented x3 HEENT: Atraumatic, Normocephalic, PERRLA Neck: Supple, 2+ carotid pulse no bruit, JVD not distended Cardiovascular: No edema, Normal pulses, Regular rate/rhythm, Normal S1 S2 Gastrointestinal: Normal bowel sounds, Soft and benign Musculoskeletal: No clubbing, No swelling Integumentary: No rashes, No breakdown Neurological: Normal speech, Normal strength at 5/5 x4 extr Laboratory Data at Discharge: WBC 10.60 K/uL (4.3-10.9) 09/25/21 05:54 Hgb 11.4 g/dL (13.6-17.9) L 09/25/21 05:54 Hct 34.3 % (39.6-49.0) L 09/25/21 05:54 Plt Count 241 K/uL (152-406) 09/25/21 05:54 PT 13.9 SECONDS (9.5-12.5) H 09/24/21 16:05 INR 1.21 09/24/21 16:05 Sodium 143 mmol/L (136-145) 09/26/21 07:20 Potassium 3.8 mmol/L (3.5-5.1) 09/26/21 07:20 BUN 30 mg/dL (7-18) H 09/26/21 07:20 Creatinine 1.23 mg/dL (0.55-1.3) 09/26/21 07:20 Glucose 116 mg/dL (74-106) H 09/26/21 07:20 Phosphorus 3.0 mg/dL (2.5-4.9) 09/26/21 07:20 Magnesium 2.1 mg/dL (1.8-2.4) 09/26/21 07:20 Total Bilirubin 0.6 mg/dL (0.2-1.0) 09/26/21 07:20 AST 22 U/L (15-37) 09/26/21 07:20 ALT 31 U/L (12-78) 09/26/21 07:20 Alkaline Phosphatase 124 U/L (45-117) H 09/26/21 07:20 Home Medications: Acetaminophen [Tylenol] 2 tab PO PRN PRN 09/13/21 Ascorbic Acid [Vitamin C with Mackenzie Hips] 1 tab PO DAILY 09/13/21 Atorvastatin Calcium [Lipitor] 40 mg PO BEDTIME 09/13/21 Cholecalciferol (Vitamin D3) [Vitamin D3] 5,000 units PO BID 09/13/21 Clopidogrel Bisulfate [Plavix*] 75 mg PO DAILY 09/13/21 Dorzolamide HCl [Trusopt] 1 drop EACH EYE BID 09/13/21 Ferrous Gluconate 1 tab PO DAILY 09/13/21 Furosemide 1 tab PO DAILY 09/13/21 Galantamine HBr [Galantamine ER] 4 mg PO BID 09/13/21 Glucosamine/Chondr Villarreal A Sod [Osteo Bi-Flex Caplet] 1 tab PO BID 09/13/21 Losartan Potassium 1 tab PO DAILY 09/13/21 Memantine HCl 1 tab PO BID 09/13/21 Metoprolol Tartrate 100 mg PO BID 09/13/21 Multivit-Minerals/FA/Lycopene [One Daily Tablet] 1 tab PO DAILY 09/13/21 [place]-3 Fatty Acids [[place]-3] 1 tab PO BID 09/13/21 Pantoprazole [Protonix Tab*] 1 tab PO DAILY 09/13/21 Timolol Maleate/Pf [Timolol Maleate 0.5% Eye Drop] 1 drop EACH EYE BID 09/13/21 Vit A,C & E/Lutein/Minerals [Ocuvite Tablet] 1 tab PO DAILY 09/13/21 Zinc 1 tab PO DAILY 09/13/21 Docusate [Colace Cap*] 100 mg PO BID cap 09/19/21 Diltiazem Cd [Cardizem Cd*] 120 mg PO DAILY #30 cap 09/26/21 New Medications: Diltiazem Cd [Cardizem Cd*] 120 mg PO DAILY #30 cap Followup: NONE,NONE [Primary Care Provider] -
[2021-09-26] MEDS ORDERED: VANCOMYCIN 1.5 GM in NA CHLORIDE 0.9% 250 ML IVPB ONE (10:54)
[2021-09-26 12:29] VITALS: BP 176/99; TEMP 98.3
[2021-09-26 12:36] VITALS: O2SAT 97
--- NOTE | 2021-09-26 17:02 | EKG ---
Test Date: 2021-09-24 Test Time: 18:01:03 Hand Crocheter: MELVIN MEASUREMENT RESULTS: Intervals: Rate: 91 [place]: QRSD: 92 QT: 372 QTc: 457 [place]: P: [place]: QRS: 64 T: 245 INTERPRETIVE STATEMENTS: Atrial fibrillation ST & T wave abnormality, consider inferolateral ischemia Abnormal ECG Compared to ECG 09/13/2021 02:22:54 ST (T wave) deviation now present Possible ischemia now present T-wave abnormality no longer present Electronically Signed On 09-26-21 17:00:09 INHALATION THERAPIST by Kelechi Tam
--- NOTE | 2021-09-29 07:38 | EKG ---
Test Date: 2021-09-25 Test Time: 09:36:24 Manager Personnel Selection: JHOANA Duvall MEASUREMENT RESULTS: Intervals: Rate: 118 [place]: QRSD: 86 QT: 346 QTc: 484 [place]: P: [place]: QRS: 29 T: 195 INTERPRETIVE STATEMENTS: Atrial fibrillation with rapid ventricular response ST & T wave abnormality, consider inferolateral ischemia or digitalis effect Abnormal ECG Compared to ECG 09/24/2021 18:01:03 No significant changes Electronically Signed On 09-29-21 07:35:15 METALLURGICAL TECHNICIAN by Kelechi Tam
== END 2021-09-26 13:45 | disposition home health service (06) | DRG 193 ==
LOC: ER 14:26 → ERHOLD 19:37 → 2ND 21:08
PROVIDERS: ADMIT Internal Medicine; ATTEND Internal Medicine
DX: J18.9 Pneumonia, unspecified organism (principal); I50.33 Acute on chronic diastolic (congestive) heart failure; R78.81 Bacteremia; I48.20 Chronic atrial fibrillation, unspecified; I47.1 Supraventricular tachycardia; I11.0 Hypertensive heart disease with heart failure; F03.90 Unspecified dementia, unspecified severity, without behavioral disturbance, psychotic disturbance, mood disturbance, and anxiety; I27.20 Pulmonary hypertension, unspecified; I25.10 Atherosclerotic heart disease of native coronary artery without angina pectoris; Z20.822 Contact with and (suspected) exposure to COVID-19
CPT/HCPCS: 36415; 71045; 80048; 80053; 80076; 80202; 81003; 81015; 82947; 83605; 83735; 83880; 84100; 84145; 84484; 85025; 85610; 87040; 93005; 94760; 96374; 99284; 99285; J0360; J1940; J3370; J7040; J7050; Q2035; U0003

== ENCOUNTER 2023-11-01 08:12 | Inpatient (IN) | payer OTHER ==
[2023-11-01 08:44] LABS: Absolute Lymphocytes (CBC) 1.3 K/uL (0.7-4.9); Hematocrit 34.5 % (39.6-49.0); Lymphocytes % 13.7 % (15.3-44.8); MCV 93.8 fL (80-100); MPV 7.6 fL (7.6-11.3); Platelets 183 thou/uL (152-406); RBC Red Blood Cell Count 3.68 M/uL (4.33-5.43)
--- NOTE | 2023-11-01 08:46 | RAD REPORT ---
EXAM DESCRIPTION: RAD - Chest Single View - 11/01/2023 8:37 am CLINICAL HISTORY: DYSPNEA COMPARISON: Chest Single View dated 09/25/2021; Chest Single View dated 09/18/2021; Chest Single Vie w dated 09/16/2021; Chest Single View dated 09/13/2021 FINDINGS: Lines: None. Lungs: Left basilar opacity. Calcified right upper lobe nodule . Pleural: Small left pleural effusion . Cardiac: Cardiomegaly. Mediastinum: Within normal limits. Bones: No acute fractures. Sternotomy. Other: None IMPRESSION: Chronic small left pleural effusion and probably underlying atelectasis.
[2023-11-01 08:51] LABS: Protime INR 1.32
[2023-11-01 09:04] LABS: Albumin 3.3 g/dL (3.4-5.0); Bilirubin Direct 0.3 mg/dL (0-0.2); Bilirubin Indirect, Calculated 0.4 mg/dL (0.2-0.8); Bilirubin Total 0.7 mg/dL (0.2-1.0); Magnesium 2.6 mg/dL (1.6-2.4); Potassium 3.7 mEq/L (3.5-5.1); Protein, Total 7.4 g/dL (6.4-8.2); Troponin High Sensitivity 14.8 pg/mL (<58.9)
--- NOTE | 2023-11-01 11:02 | RAD REPORT ---
EXAM DESCRIPTION: US - Lower Extremity Arterial Bilat - 11/01/2023 9:59 am CLINICAL HISTORY: Bilateral leg numbness and tingling. COMPARISON: None FINDINGS: Color Doppler, grayscale, and spectral analysis was performed. Right lower extremity: Monophasic flow present throughout the right lower extremity. Left lower extremity: Biphasic flow in the left common and superficial femoral artery. The popliteal artery has monophasic flow. Flow is difficult to establish in the posterior tibial artery which could be occluded. The left dorsalis pedis artery is occluded. IMPRESSION: 1. Right lower extremity: Monophasic flow throughout the right lower extremity which cou ld indicate a more proximal moderate or severe stenosis such as at the iliac vessels. 2. Left lower extremity: Biphasic flow in the left common femoral and superficial femoral arteries. M onophasic flow in the popliteal artery suggesting a moderate to high-grade stenosis. The posterior ti bial artery is either occluded or has minimal flow. The dorsalis pedis artery is occluded.
[2023-11-01] MEDS ORDERED: FUROSEMIDE 40 MG/4 ML VIAL ONE (11:36)
--- NOTE | 2023-11-01 11:49 | ER ---
Nurse's Notes [facility] Name: Jeb Lubin Age: 83 yrs Sex: Male : 1940 Arrival Date: 11/01/2023 Time: 08:12 Bed 20 Private MD: Diagnosis: CHF exacerbation, peripheral vascular disease Presentation: 11/01 08:21 Chief complaint: Patient states: Pt reports shortness of breath x several days with kb3 increased bilateral leg pain. Denies CP. Coronavirus screen: Vaccine status: Patient reports being unvaccinated. Client denies travel out of the [place] in the last 14 days. Ebola Screen: Patient negative for fever greater than or equal to 101.5 degrees Fahrenheit, and additional compatible Ebola Virus Disease symptoms Patient denies exposure to infectious person. Patient denies travel to an Ebola-affected area in the 21 days before illness onset. Initial Sepsis Screen: Does the patient meet any 2 criteria? RR > 20 per min. No. Patient's initial sepsis screen is negative. Does the patient have a suspected source of infection? No. Patient's initial sepsis screen is negative. Risk Assessment: Do you want to hurt yourself or someone else? Patient reports no desire to harm self or others. Onset of symptoms is unknown. 08:21 Method Of Arrival: EMS: [facility] kb3 08:21 Acuity: CECILIA 2 kb3 Triage Assessment: 08:23 General: Appears in no apparent distress. Behavior is calm, cooperative. Pain: kb3 Complains of pain in right leg and left leg Pain does not radiate. Pain currently is 7 out of 10 on a pain scale. Quality of pain is described as aching, pressure, throbbing. Cardiovascular: Heart tones present Capillary refill < 3 seconds Clubbing of nail beds is absent JVD is absent Patient's skin is warm and dry. Pulses are all present. Rhythm is atrial fibrillation Chest pain is denied. Respiratory: Reports shortness of breath air hunger Airway is patent Trachea midline Respiratory effort is even, labored, Respiratory pattern is tachypnea Breath sounds are clear bilaterally. Onset: The symptoms/episode began/occurred gradually, the patient has mild shortness of breath. Historical: - Allergies: 08:23 PENICILLINS; kb3 08:23 Xarelto; kb3 12:38 Eliquis; nj1 12:38 Vytorin 10-10; nj1 13:05 atorvastatin (Hives); nj1 - Home Meds: 11:47 aspirin 81 mg Oral capsule 1 cap daily [Active]; acetaminophen 650 mg Oral tablet, nj1 extended release 1 tab every 12 hours [Active]; metoprolol tartrate 100 mg Oral tablet 1 tab 2 times per day [Active]; Crestor 10 mg oral tablet 1 tab daily [Active]; clopidogrel 75 mg Oral tab 1 tab once daily [Active]; torsemide 20 mg oral tablet 2 tabs every morning [Active]; torsemide 20 mg oral tablet 1 tab nightly [Active]; galantamine 4 mg Oral tab 1 tab 2 times per day [Active]; pantoprazole 40 mg oral tablet, delayed release (enteric coated) 1 tab daily [Active]; memantine 10 mg oral tablet 1 tab 2 times per day [Active]; gabapentin 100 mg oral capsule 1 cap every day at bedtime [Active]; hydralazine 25 mg Oral tablet 1 tab 2 times per day [Active]; - PMHx: 08:23 Atrial Fib; Diabetes - NIDDM; Hypertension; Polio; as a kid; Dementia; Congestive heart kb3 failure; 09:53 Chronic Renal Insufficiency; kb3 - PSHx: 08:23 Coronary artery bypass graft; heart valve replacement; kb3 - Immunization history:: Adult Immunizations up to date, Client reports having NOT received the Covid vaccine. Last tetanus immunization: unknown. - Social history:: Smoking status: Patient denies any tobacco usage or history of. Screenin:15 [facility] ED Fall Risk Assessment (Adult) Score/Fall Risk Level 3 or more points = High [facility] Risk Oriented to surroundings, Maintained a safe environment, Hourly rounding (assess needs \T\ fall precautionary measures) done, Used ambulatory aids as needed (educated on \T\ assisted with), Remained w/in arm's length of patient and in sight while toileting, Offered frequent toileting (1:1 observation), Remained with patient while ambulating. Abuse screen: Denies threats or abuse. Denies injuries from another. Nutritional screening: No deficits noted. Tuberculosis screening: No symptoms or risk factors identified. Assessment: 09:10 Reassessment: Patient appears in no apparent distress at this time. Patient and/or nj1 family updated on plan of care and expected duration. Pain level reassessed. Patient is alert, oriented x 3, equal unlabored respirations, skin warm/dry/pink. 09:30 Reassessment: Not in room, in imaging. nj1 10:40 Reassessment: Patient appears in no apparent distress at this time. Patient and/or nj1 family updated on plan of care and expected duration. Pain level reassessed. Patient is alert, oriented x 3, equal unlabored respirations, skin warm/dry/pink. 11:46 Reassessment: Patient appears in no apparent distress at this time. Patient and/or nj1 family updated on plan of care and expected duration. Pain level reassessed. Patient is alert, oriented x 3, equal unlabored respirations, skin warm/dry/pink. Message left for food and nutrition about diet ordered. 13:06 Reassessment: Patient appears in no apparent distress at this time. Patient and/or nj1 family updated on plan of care and expected duration. Pain level reassessed. Patient is alert, oriented x 3, equal unlabored respirations, skin warm/dry/pink. Lunch tray set up for patient. 19:25 Reassessment: attempted to give report. ha1 19:45 Reassessment: attempted to give report. ha1 20:02 Reassessment: attempted to give report. ha1 20:40 Cardiovascular: Capillary refill < 3 seconds Patient's skin is warm and dry. 1 Vital Signs: 08:21 BP 160 / 92; Pulse 84; Resp 34; Temp 97.6; Pulse Ox 95% ; FiO2 2 %; Weight 61.23 kg; kb3 Height 5 ft. 4 in. ; Pain 8/10; 10:40 BP 144 / 74; Pulse 79; Resp 21; Pulse Ox 100% on 2 lpm NC; Pain 8/10; nj1 11:23 BP 126 / 85; Pulse 75; Resp 20; Pulse Ox 100% on 2 lpm NC; nj1 12:15 BP 149 / 85; Pulse 72; Resp 17; Pulse Ox 100% on 2 lpm NC; nj1 13:15 BP 114 / 82; Pulse 87; Resp 21; Pulse Ox 100% on 2 lpm NC; nj1 14:30 BP 128 / 71; Pulse 83; Resp 19; Pulse Ox 100% on 2 lpm NC; nj1 19:20 BP 124 / 74; Pulse 81; Resp 17 S; Pulse Ox 100% on 2 lpm NC; ha1 08:21 Body Mass Index 23.17 (61.23 kg, 162.56 cm) kb3 08:21 Pain Scale: Adult kb3 10:40 Pain Scale: Adult nj1 ED Course: 08:12 Patient arrived in ED. em1 08:17 EKG done, by ED staff, reviewed by Barrett Valentine MD. mv 08:19 Barrett Valentine MD is Attending Physician. sp3 08:23 Triage completed. kb3 08:23 Arm band placed on right wrist. Patient placed in an exam room, on a stretcher, on kb3 oxygen, on junior technical writer, on pulse oximetry. 08:30 First set of blood cultures drawn by me. mv 08:33 Inserted saline lock: 20 gauge in left forearm, using aseptic technique. Blood mv collected. 08:36 Dipika Mohan, RN is Primary Nurse. iw 08:39 XRAY Chest (1 view) In Process Unspecified. EDMS 09:10 Patient has correct armband on for positive identification. Bed in low position. Call nj1 light in reach. Side rails up X 1. Adult w/ patient. Provided Education on: call light, fall precautions. 09:59 Lower Extremity Arterial Bilateral: MARIUSZ In Process Unspecified. EDMS 11:48 Tiago Price MD is Hospitalizing Provider. sp3 13:01 Condom catheter placed by Mitch ASHBY, this RN present for education. nj1 13:47 Cleaned of incontinence. Linen changed. as6 13:54 Linens changed, placed in a gown, condom catheter changed.. nj1 13:55 Thermoregulation: warm blanket given to patient. nj1 17:08 Primary Nurse role handed off by Dipika Mohan, RN as6 19:00 Report given to Jenifer ASHBY. nj1 20:40 No provider procedures requiring assistance completed. Patient admitted, IV remains in ha1 place. Administered Medications: 11:44 Drug: Furosemide IVP 40 mg IVP once; give over 2 minutes Route: IVP; Site: left forearm;nj1 Medication: 20:40 VIS not applicable for this client. ha1 Outcome: 11:49 Decision to Hospitalize by Provider. sp3 20:41 Admitted to Tele accompanied by nurse, via stretcher, room 404, with chart, Report ha1 called to ISMA Zhang 20:41 Condition: stable 20:41 Discharge instructions given to patient, family, Instructed on the need for admit, Demonstrated understanding of instructions, 20:42 Patient left the ED. ha1 Signatures: Dispatcher [employer] EDDipika Brown, RN Erich Dill em1 Barrett Valentine MD MD sp3 Juan Farooq RN RN as6 Jenifer Singer RN RN ha1 Anna Hurd RN RN kb3 Sarah Espinosa RN RN nj1 Amanda Al Corrections: (The following items were deleted from the chart) 11:46 11:23 Pulse 75bpm; Resp 20bpm; Pulse Ox 100% 2 lpm Nasal Cannula; nj1 nj1
--- NOTE | 2023-11-01 11:49 | EDPHYS ---
Physician Documentation [facility] Name: Jeb Lubin Age: 83 yrs Sex: Male : 1940 Arrival Date: 11/01/2023 Time: 08:12 Bed 20 Private MD: ED Physician Barrett Valentine HPI: 11/01 08:45 This 83 yrs old Male presents to ER via EMS with complaints of bilateral leg sp3 pain, Shortness Of Breath. 08:45 83-year-old male with a history of atrial fibrillation, diabetes, hypertension, sp3 dementia, congestive heart failure, history of polio presents to the ED with chief complaint bilateral leg pain and numbness and decreased ability to walk. Patient also has peripheral vascular disease with nonoperative arterial occlusions as per patient's report from cardiology. Patient also complains of dyspnea on exertion which she has at baseline but is worse today. He denies any chest pain, headache, fever, cough, abdominal pain, nausea, vomiting, diarrhea, rash, focal weakness, or any other signs or symptoms on ROS at this time.. Historical: - Allergies: 08:23 PENICILLINS; kb3 08:23 Xarelto; kb3 12:38 Eliquis; nj1 12:38 Vytorin 10-10; nj1 13:05 atorvastatin (Hives); nj1 - Home Meds: 11:47 aspirin 81 mg Oral capsule 1 cap daily [Active]; acetaminophen 650 mg Oral tablet, nj1 extended release 1 tab every 12 hours [Active]; metoprolol tartrate 100 mg Oral tablet 1 tab 2 times per day [Active]; Crestor 10 mg oral tablet 1 tab daily [Active]; clopidogrel 75 mg Oral tab 1 tab once daily [Active]; torsemide 20 mg oral tablet 2 tabs every morning [Active]; torsemide 20 mg oral tablet 1 tab nightly [Active]; galantamine 4 mg Oral tab 1 tab 2 times per day [Active]; pantoprazole 40 mg oral tablet, delayed release (enteric coated) 1 tab daily [Active]; memantine 10 mg oral tablet 1 tab 2 times per day [Active]; gabapentin 100 mg oral capsule 1 cap every day at bedtime [Active]; hydralazine 25 mg Oral tablet 1 tab 2 times per day [Active]; - PMHx: 08:23 Atrial Fib; Diabetes - NIDDM; Hypertension; Polio; as a kid; Dementia; Congestive heart kb3 failure; 09:53 Chronic Renal Insufficiency; kb3 - PSHx: 08:23 Coronary artery bypass graft; heart valve replacement; kb3 - Immunization history:: Adult Immunizations up to date, Client reports having NOT received the Covid vaccine. Last tetanus immunization: unknown. - Social history:: Smoking status: Patient denies any tobacco usage or history of. ROS: 08:47 Constitutional: Negative for fever, chills, and weight loss, Eyes: Negative for injury, sp3 pain, redness, and discharge, ENT: Negative for injury, pain, and discharge, Neck: Negative for injury, pain, and swelling, Abdomen/GI: Negative for abdominal pain, nausea, vomiting, diarrhea, and constipation, Back: Negative for injury and pain, Skin: Negative for injury, rash, and discoloration, Neuro: Negative for headache, weakness, numbness, tingling, and seizure, Psych: Negative for depression, anxiety, suicide ideation, homicidal ideation, and hallucinations, Allergy/Immunology: Negative for hives, rash, and allergies, 08:47 All other systems are negative, Exam: 08:48 Constitutional: This is a well developed, well nourished patient who is awake, alert, sp3 and in no acute distress. Head/Face: Normocephalic, atraumatic. Eyes: Pupils equal round and reactive to light, extra-ocular motions intact. Lids and lashes normal. Conjunctiva and sclera are non-icteric and not injected. Cornea within normal limits. Periorbital areas with no swelling, redness, or edema. ENT: Nares patent. No nasal discharge, no septal abnormalities noted. External auditory canals are clear. Oropharynx with no redness, swelling, or masses, exudates, or evidence of obstruction, uvula midline. Mucous membranes moist. Neck: Trachea midline, no thyromegaly or masses palpated, and no cervical lymphadenopathy. Supple, full range of motion without nuchal rigidity, or vertebral point tenderness. No Meningismus. Chest/axilla: Normal chest wall appearance and motion. Nontender with no deformity. No lesions are appreciated. Abdomen/GI: Soft, non-tender, with normal bowel sounds. No distension or tympany. No guarding or rebound. No evidence of tenderness throughout. Skin: Warm, dry with normal turgor. Normal color with no rashes, no lesions, and no evidence of cellulitis. Neuro: Awake and alert, GCS 15, oriented to person, place, time, and situation. Cranial nerves II-XII grossly intact. Motor strength 5/5 in all extremities. Sensory grossly intact. Cerebellar exam normal. Normal gait. Psych: Awake, alert, with orientation to person, place and time. Behavior, mood, and affect are within normal limits. 08:48 Cardiovascular: Patient is in atrial fibrillation with irregularly irregular rhythm with pulse rate of 84. Distal pulses in the lower extremity are not palpable however capillary refill is present. Patient has mild rales bilaterally as well., 08:50 ECG was reviewed by the Attending Physician. EKG demonstrates atrial fibrillation with sp3 ventricular capture at 82 bpm with QTc of 457 absent ND otherwise normal intervals, normal axis, high voltage QRS with nonspecific diffuse ST's ST changes without evidence of acute ischemia. Vital Signs: 08:21 BP 160 / 92; Pulse 84; Resp 34; Temp 97.6; Pulse Ox 95% ; FiO2 2 %; Weight 61.23 kg; kb3 Height 5 ft. 4 in. ; Pain 8/10; 10:40 BP 144 / 74; Pulse 79; Resp 21; Pulse Ox 100% on 2 lpm NC; Pain 8/10; nj1 11:23 BP 126 / 85; Pulse 75; Resp 20; Pulse Ox 100% on 2 lpm NC; nj1 12:15 BP 149 / 85; Pulse 72; Resp 17; Pulse Ox 100% on 2 lpm NC; nj1 13:15 BP 114 / 82; Pulse 87; Resp 21; Pulse Ox 100% on 2 lpm NC; nj1 14:30 BP 128 / 71; Pulse 83; Resp 19; Pulse Ox 100% on 2 lpm NC; nj1 19:20 BP 124 / 74; Pulse 81; Resp 17 S; Pulse Ox 100% on 2 lpm NC; ha1 08:21 Body Mass Index 23.17 (61.23 kg, 162.56 cm) kb3 08:21 Pain Scale: Adult kb3 10:40 Pain Scale: Adult nj1 MDM: 08:26 Patient medically screened. sp3 08:48 Data reviewed: vital signs, nurses notes. ED course: 83-year-old male with extensive sp3 past medical history as above now presents to the ED with chief complaint bilateral leg pain and numbness and inability to walk as well as dyspnea. Differential diagnosis includes peripheral vascular disease and arterial occlusion acute on chronic on the extremity front, and CHF exacerbation, pneumonia, ACS on the dyspnea front. I am not highly suspicious for pulmonary embolism at this time. No lower extremity pitting edema or edema in general noted. Workup will include chest x-ray, laboratory values, EKG, and ultrasound arterial lower extremity bilateral with ABIs. Disposition pending workup and patient course.. 11/01 08:20 Order name: Basic Metabolic Panel; Complete Time: 09:18 sp3 11/01 08:20 Order name: CBC with Diff; Complete Time: 09:18 3 11/01 08:20 Order name: LFT's; Complete Time: 09:18 3 11/01 08:20 Order name: Magnesium; Complete Time: 09:18 3 11/01 08:20 Order name: NT PRO-BNP; Complete Time: 09:18 3 11/01 08:20 Order name: PT-INR; Complete Time: 09:18 3 11/01 08:20 Order name: Troponin HS; Complete Time: 09:18 3 11/01 08:20 Order name: XRAY Chest (1 view); Complete Time: 09:18 3 11/01 08:43 Order name: US Lower Extremity Arterial Bilateral: MARIUSZ; Complete Time: 11:09 11/01 08:20 Order name: EKG; Complete Time: 08:20 3 11/01 11:48 Order name: CONS Physician Consult EDNC 11/01 08:20 Order name: Cardiac monitoring; Complete Time: 08:34 11/01 08:20 Order name: EKG - Nurse/Tech; Complete Time: 08:26 3 11/01 08:20 Order name: IV Saline Lock; Complete Time: 08:34 3 11/01 08:20 Order name: Labs collected and sent; Complete Time: 08:34 11/01 08:20 Order name: O2 Per Protocol; Complete Time: 08:34 11/01 08:20 Order name: O2 Sat Monitoring; Complete Time: 08:34 sp3 Administered Medications: 11:44 Drug: Furosemide IVP 40 mg IVP once; give over 2 minutes Route: IVP; Site: left forearm;nj1 Disposition Summary: 11/01/23 11:49 Hospitalization Ordered Notes: Hospitalization Status: Observation sp3 Provider: Tiago Price sp3 Condition: Stable sp3 Problem: an acute exacerbation sp3 Symptoms: have worsened sp3 Bed/Room Type: Standard sp3 Location: Telemetry/MedSurg (observation)(11/01/23 19:06) cg Room Assignment: [facility](11/01/23 19:06) Diagnosis - CHF exacerbation, peripheral vascular disease sp3 Forms: - Medication Reconciliation Form sp3 - SBAR form sp3 - Leadership Thank You Letter sp3 Signatures: Dispatcher [employer] EDShanti Levi Cindy, RN RN cg Barrett Valentine MD MD sp3 Anna Hurd RN RN kb3 Sarah Espinosa RN RN nj1 Corrections: (The following items were deleted from the chart) 13:15 11:49 Telemetry/MedSurg (observation) sp3 bd 13:15 11:49 sp3 bd 19:06 13:15 [facility] ER HOLD bd cg 19:06 13:15 ERHOLD- bd cg
--- NOTE | 2023-11-01 11:59 | P.HP ---
Certification for Inpatient Patient admitted to: Inpatient With expected LOS: <2 Midnights Practitioner: I am a practitioner with admitting privileges, knowledge of patient current condition, hospital course, and medical plan of care. Services: Services provided to patient in accordance with Admission requirements found in Title 42 Section 412.3 of the Code of Federal Regulations Patient History Date of Service: 11/01/23 Reason for admission: Shortness of breath History of Present Illness: 83 year old male with past medical history of Atrial Fib; Diabetes -CKD NIDDM; Hypertension; Polio; as a kid; Dementia; Congestive heart presented to the emergency room with bilateral leg pain, reports history of progressive peripheral vascular disease with nonoperative arterial occlusions per patient's report from cardiology. Reports associated shortness of breath that is worse with exertion. He denies chest pain, fever, nausea vomiting diarrhea, failure. Plan to admit for acute on chronic heart failure, bilateral lower extremity edema PAD. Laboratory evaluation acute on chronic kidney injury BUN 56 creatinine 2.32, estimated GFR 27, elevated BNP 2605, troponin normal at 14.8, microcytic anemia 11.5 34.5 chest x-ray chronic small left pleural effusion with underlying atelectasis, bilateral lower extremity Dopplers IMPRESSION: 1. Right lower extremity: Monophasic flow throughout the right lower extremity which could indicate a more proximal moderate or severe stenosis such as at the iliac vessels. 2. Left lower extremity: Biphasic flow in the left common femoral and superficial femoral arteries. Monophasic flow in the popliteal artery suggesting a moderate to high-grade stenosis. The posterior tibial artery is either occluded or has minimal flow. The dorsalis pedis artery is occluded. Allergies Penicillins Allergy (Verified 03/16/21 10:58) Hives/Rash rivaroxaban [From Xarelto] Adverse Reaction (Verified 03/16/21 10:58) GI BLEED Home Medications: Acetaminophen [Tylenol] 2 tab PO PRN PRN 09/13/21 Ascorbic Acid [Vitamin C with Mackenzie Hips] 1 tab PO DAILY 09/13/21 Atorvastatin Calcium [Lipitor] 40 mg PO BEDTIME 09/13/21 Cholecalciferol (Vitamin D3) [Vitamin D3] 5,000 units PO BID 09/13/21 Clopidogrel Bisulfate [Plavix*] 75 mg PO DAILY 09/13/21 Dorzolamide HCl [Trusopt] 1 drop EACH EYE BID 09/13/21 Ferrous Gluconate 1 tab PO DAILY 09/13/21 Furosemide 1 tab PO DAILY 09/13/21 Galantamine HBr [Galantamine ER] 4 mg PO BID 09/13/21 Glucosamine/Chondr Villarreal A Sod [Osteo Bi-Flex Caplet] 1 tab PO BID 09/13/21 Losartan Potassium 1 tab PO DAILY 09/13/21 Memantine HCl 1 tab PO BID 09/13/21 Metoprolol Tartrate 100 mg PO BID 09/13/21 Multivit-Minerals/FA/Lycopene [One Daily Tablet] 1 tab PO DAILY 09/13/21 Troy-3 Fatty Acids [Troy-3] 1 tab PO BID 09/13/21 Pantoprazole [Protonix Tab*] 1 tab PO DAILY 09/13/21 Timolol Maleate/Pf [Timolol Maleate 0.5% Eye Drop] 1 drop EACH EYE BID 09/13/21 Vit A,C & E/Lutein/Minerals [Ocuvite Tablet] 1 tab PO DAILY 09/13/21 Zinc 1 tab PO DAILY 09/13/21 Docusate [Colace Cap*] 100 mg PO BID cap 09/19/21 Diltiazem Cd [Cardizem Cd*] 120 mg PO DAILY #30 cap 09/26/21 - Past Medical/Surgical History Diabetic: No -: HTN -: High Cholesterol -: Vascular Dementia -: CABG -: Diabetes mellitus type 2 -: CAD -: polio during childhood -: A. Fib -: Triple Bypass -: Aortic Valve Replacement-bovine Psychosocial/ Personal History: Patient currently lives at home alone - Family History Brother -: Heart disease, Other (see notes) Notes: [place] Father -: Heart disease Mother -: Heart disease - Social History Alcohol use: No CD- Drugs: No Caffeine use: Yes Review of Systems per HPI Physical Examination - Physical Exam General: Alert, In no apparent distress, Oriented x3 HEENT: Atraumatic, Normocephalic Neck: Supple, 2+ carotid pulse no bruit Respiratory: Normal air movement, Crackles/rales Cardiovascular: No edema, Normal pulses Capillary refill: <2 Seconds Gastrointestinal: Normal bowel sounds, Soft and benign Musculoskeletal: No clubbing, No swelling Integumentary: No rashes, No breakdown Neurological: Normal speech, Other (generalized weakness) - Studies Laboratory Data (last 24 hrs) 11/01/23 11/01/23 11/01/23 08:30 08:30 08:30 WBC 9.40 Hgb 11.5 L Hct 34.5 L Plt Count 183 PT 14.4 H INR 1.32 Sodium 145 Potassium 3.7 BUN 56 H Creatinine 2.32 H Glucose 95 Magnesium 2.6 H Total Bilirubin 0.7 AST 12 L ALT 20 Alkaline Phosphatase 166 H Assessment and Plan - Plan Assessment plan Acute on chronic heart failure History Atrial Fib Cardiology consult, echo, telemetry, Diuretics, antilipid, antihypertensives, as needed analgesics elevated BNP 2605, troponin normal chest x-ray chronic small left pleural effusion with underlying atelectasis resume home meds impaired mobility Bilateral lower extremity leg pain Bilateral lower extremity peripheral artery disease reports history of progressive peripheral vascular disease with nonoperative arterial occlusions per patient's report from cardiology. bilateral lower extremity Dopplers IMPRESSION: 1. Right lower extremity: Monophasic flow throughout the right lower extremity which could indicate a more proximal moderate or severe stenosis such as at the iliac vessels. 2. Left lower extremity: Biphasic flow in the left common femoral and superficial femoral arteries. Monophasic flow in the popliteal artery suggesting a moderate to high-grade stenosis. The posterior tibial artery is either occluded or has minimal flow. The dorsalis pedis artery is occluded. fall precuations, PT eval [id number] diabetes Sliding scale insulin, Accu-Cheks ACHS, Acute on chronic kidney injury CKD BUN 56 creatinine 2.32, estimated GFR 27,. trend kidney function Microcytic anemia likely secondary to anemia of chronic disease microcytic anemia 11.5 34.5 Hypertension Resume appropriate home meds Polio; as a kid fall precuations Dementia Fall precautions, supportive care Full code DVT heparin Diet cardiac Discharge Plan: Home - Advance Directives Does patient have a Living Will: Yes Does patient have a Durable POA for Healthcare: No - Code Status/Comfort Care Code Status: Full Code Critical Care: No Time Spent Managing Pts Care (In Minutes): 55
[2023-11-01] MEDS ORDERED: ACETAMINOPHEN 500 MG TAB PO PRN (14:23)
[2023-11-01] MEDS ORDERED: ONDANSETRON 4 MG/2 ML VIAL IV PRN (14:23)
[2023-11-01] MEDS ORDERED: CODEINE 30MG/APAP 300MG TAB ONE (14:31)
[2023-11-01] MEDS: HYDRALAZINE HCL 25 MG TABLET PO SCH ×3 (14:36→21:39)
[2023-11-01] MEDS: CODEINE 30MG/APAP 300MG TAB PO PRN (14:36)
[2023-11-01] MEDS ORDERED: TORSEMIDE 20 MG TAB PO SCH ×2 (15:00→21:00)
[2023-11-01] MEDS ORDERED: HEPARIN 5000 UNIT/ML 1 ML VIAL ONE (16:40)
[2023-11-01 16:42] VITALS: BMI 23.1
[2023-11-01] MEDS ORDERED: HEPARIN 5000 UNIT/ML 1 ML VIAL SQ SCH (17:00)
[2023-11-01] MEDS ORDERED: HOME MED 1 EA UNK (Omega-3 Fatty Acids [Omega-3] 1,000 MG Capsule) PO SCH (21:00)
[2023-11-01] MEDS: COCONUT OIL 1000 MG PO SCH (21:00)
[2023-11-01] MEDS ORDERED: GLUCOSAMINE PO SCH (21:00)
[2023-11-01] MEDS ORDERED: HOME MED 1 EA UNK (Metoprolol Tartrate [Metoprolol Tartrate] 100 MG Tablet) PO SCH (21:00)
[2023-11-01] MEDS ORDERED: D3 PO SCH (21:00)
[2023-11-01] MEDS ORDERED: GABAPENTIN 100 MG CAP PO SCH (21:00)
[2023-11-01] MEDS ORDERED: BOSWELLIA SERRA PO SCH (21:00)
[2023-11-01] MEDS: EYE OPTH SCH (21:00)
[2023-11-01] MEDS: DORZOLAMIDE 2% OPTH SCH (21:00)
[2023-11-01] MEDS ORDERED: ATORVASTATIN 40 MG TAB PO SCH (21:00)
[2023-11-01] MEDS: OPTH OPTH SCH (21:00)
[2023-11-01] MEDS: TIMOLOL MALEATE 0.5% OPTH SCH (21:00)
[2023-11-01] MEDS: ROSUVASTATIN 10 MG TAB PO SCH (21:17)
[2023-11-01] MEDS: GLUCOSAM/CHONDROI 500mg-400mg PO SCH (21:19)
[2023-11-01] MEDS: DOCOSAHEXANOIC AC/EPA 1000 MG PO SCH (21:20)
[2023-11-01] MEDS: METOPROLOL TAR 50 MG TAB PO SCH (21:36)
[2023-11-01] MEDS: GALANTAMINE 4 MG TAB PO SCH (21:36)
--- NOTE | 2023-11-01 21:36 | CON ---
Date of Consultation: 11/01/2023 Reason For Consultation: Shortness of breath and heart failure. History Of Present Illness: An 83-year-old male, history of atrial fibrillation, diastolic heart iona lure, diabetes, hypertension, advanced dementia, presented with bilateral leg pain, shortness of lara th, and orthopnea. He does have peripheral vascular disease that is well known and severe stenosis t hat was tried to intervene upon in the past by Dr. Tam, however, was not successful. Past Medical History: As outlined above in the HPI. Medications: Refer to reconciliation sheet for detailed list. Allergies: APIXABAN, ATORVASTATIN, PENICILLIN, RIVAROXABAN. Family History: No premature coronary artery disease or cancer. Social History: Does not smoke or drink. Does not use any drugs. Review of Systems: All systems reviewed and they were negative except as mentioned in HPI. Physical Examination: Vital Signs: Reviewed. Head and Neck: Pupils are equal, reactive to light. Intact eye movements. Positive JVD. No cervic al lymphadenopathy. Neck: Supple. Thyroid is not enlarged. Lungs: Crackles at both lungs half the way up with no accessory muscle use or muscle retraction. Heart: Irregularly irregular. No extra sounds. Abdomen: Soft, nontender. Bowel sounds positive. No organomegaly. No masses or hernia. No rigidi ty or rebound. Extremities: Trace edema bilaterally. No clubbing, cyanosis. Intact pulses. Skin: No rashes. Neurologic: Alert, awake. No acute focal deficits appreciated. Lymph nodes: No cervical lymphadenopathy. Investigations: BUN 26, creatinine 2.3, which is around his baseline, and hemoglobin is 11.5. Assessment/recommendation: 1.Acute on chronic congestive heart failure exacerbation. Recommend to use IV diuretics. Lasix at 80 mg twice a day. Carefully monitoring BUN, creatinine, and electrolytes and to put torsemide on ho ld. 2.Atrial fibrillation. Rate is fast. Resume metoprolol and adjust the dose as he responds to it to have his heart rate below 100. 3.Severe bilateral lower extremity pain. We will evaluate his records on the previous intervention and see if his condition is minimal to intervention. He had an arterial Doppler and that arterial Do ppler was showing monophasic flow throughout. This patient could benefit from a peripheral angiogram , however, he has advanced kidney failure and dementia. At this point, I recommend medical managemen tLuis E COOPER/MODL Voice ID: [id number] Report ID: [id number]
[2023-11-01] MEDS: DOCUSATE NA 100 MG CAP PO SCH (21:37)
[2023-11-01] MEDS: MEMANTINE HCL 10 MG TABLET PO SCH (21:38)
[2023-11-01] MEDS: GABAPENTIN 100 MG CAP PO SCH (21:39)
[2023-11-01] MEDS: ACETAMINOPHEN 325 MG TABLET PO PRN (21:45)
[2023-11-02] MEDS ORDERED: TORSEMIDE 20 MG TAB PO SCH (06:00)
[2023-11-02 07:21] LABS: Absolute Lymphocytes (CBC) 1.2 K/uL (0.7-4.9); Hematocrit 33.5 % (39.6-49.0); Lymphocytes % 11.4 % (15.3-44.8); MCV 93.1 fL (80-100); MPV 7.5 fL (7.6-11.3); Platelets 218 thou/uL (152-406)
[2023-11-02 07:37] LABS: Magnesium 2.5 mg/dL (1.6-2.4); Phosphorus 3.7 mg/dL (2.5-4.9); Potassium 3.4 mEq/L (3.5-5.1)
--- NOTE | 2023-11-02 08:10 | P.PN ---
Subjective Date of Service: 11/02/23 Chief Complaint: Shortness of breath Family at bedside is primary historian, reports patient has a history of severe PAD with pain with difficulty with ambulation As needed analgesics added educated on the risks of constipation with as needed analgesics and fall precautions. Family verbalized understanding - Physical Exam General: Alert, In no apparent distress, Oriented x3 HEENT: Atraumatic, Normocephalic Neck: Supple, 2+ carotid pulse no bruit Respiratory: Normal air movement, Crackles/rales Cardiovascular: No edema, Normal pulses Capillary refill: <2 Seconds Gastrointestinal: Normal bowel sounds, Soft and benign Musculoskeletal: No clubbing, No swelling Integumentary: No rashes, No breakdown Neurological: Normal speech, Other (generalized weakness) Review of Systems per HPI Physical Examination - Vital Signs Temperature: 98 F Blood Pressure: 127/58 Pulse: 83 Respirations: 18 Pulse Ox (%): 97 - Studies Laboratory Data (last 24 hrs) 11/01/23 11/01/23 11/01/23 08:30 08:30 08:30 WBC 9.40 Hgb 11.5 L Hct 34.5 L Plt Count 183 PT 14.4 H INR 1.32 Sodium 145 Potassium 3.7 BUN 56 H Creatinine 2.32 H Glucose 95 Magnesium 2.6 H Total Bilirubin 0.7 AST 12 L ALT 20 Alkaline Phosphatase 166 H Assessment And Plan - Plan Assessment plan Acute on chronic heart failure History Atrial Fib Cardiology consult, echo, telemetry, Diuretics, antilipid, antihypertensives, as needed analgesics elevated BNP 2605, troponin normal chest x-ray chronic small left pleural effusion with underlying atelectasis Per cardiology goal is to have resting heart rate less than 100 impaired mobility Bilateral lower extremity leg pain Bilateral lower extremity peripheral artery disease reports history of progressive peripheral vascular disease with nonoperative arterial occlusions per patient's report from cardiology. bilateral lower extremity Dopplers IMPRESSION: 1. Right lower extremity: Monophasic flow throughout the right lower extremity which could indicate a more proximal moderate or severe stenosis such as at the iliac vessels. 2. Left lower extremity: Biphasic flow in the left common femoral and superficial femoral arteries. Monophasic flow in the popliteal artery suggesting a moderate to high-grade stenosis. The posterior tibial artery is either occluded or has minimal flow. The dorsalis pedis artery is occluded. fall precuations, PT eval as needed analgesics pain control [id number] diabetes Sliding scale insulin, Accu-Cheks ACHS, Acute on chronic kidney injury CKD BUN 56 creatinine 2.32, estimated GFR 27,. trend kidney function Nephrology consult Microcytic anemia likely secondary to anemia of chronic disease microcytic anemia 11.5 34.5 Hypertension Resume appropriate home meds Polio as a kid fall precuations Dementia Fall precautions, supportive care Full code DVT heparin Diet cardiac Discharge Plan: Home Plan to discharge in: 48 Hours - Code Status/Comfort Care Code Status: Full Code Critical Care: No Time Spent Managing PTS Care (In Minutes): 35
[2023-11-02] MEDS: Multi-VIT(Centravite Senior) 1 TAB TAB PO SCH (08:30)
[2023-11-02] MEDS: METOPROLOL TAR 50 MG TAB PO SCH ×2 (08:31→18:23)
[2023-11-02] MEDS: MEMANTINE HCL 10 MG TABLET PO SCH ×2 (08:31→18:23)
[2023-11-02] MEDS: ZINC SULFATE 220 MG CAP PO SCH (08:32)
[2023-11-02] MEDS: CLOPIDOGREL 75 MG TABLET PO SCH (08:32)
[2023-11-02] MEDS: DOCUSATE NA 100 MG CAP PO SCH ×3 (08:32→19:00)
[2023-11-02] MEDS: GALANTAMINE 4 MG TAB PO SCH ×3 (08:32→19:00)
[2023-11-02] MEDS: PANTOPRAZOLE 40MG TABLET PO SCH (08:33)
[2023-11-02] MEDS: OCUVITE (VIT A,C & E/LUTEIN/MINERAL) TABLET PO SCH (08:33)
[2023-11-02] MEDS: GLUCOSAM/CHONDROI 500mg-400mg PO SCH ×2 (08:33→18:25)
[2023-11-02] MEDS: DOCOSAHEXANOIC AC/EPA 1000 MG PO SCH ×3 (08:33→19:00)
[2023-11-02] MEDS: HYDRALAZINE HCL 25 MG TABLET PO SCH ×2 (08:33→18:23)
[2023-11-02] MEDS: ASPIRIN EC 81 MG TAB PO SCH (08:33)
[2023-11-02] MEDS: TIMOLOL MALEATE 0.5% OPTH SCH ×2 (08:34→17:53)
[2023-11-02] MEDS: ASCORBIC ACID 500 MG TABLET PO SCH (08:34)
[2023-11-02] MEDS: EYE OPTH SCH ×2 (08:34→17:53)
[2023-11-02] MEDS: OPTH OPTH SCH ×3 (08:35→17:52)
[2023-11-02] MEDS: DORZOLAMIDE 2% OPTH SCH ×3 (08:35→17:52)
[2023-11-02] MEDS ORDERED: [UNRECOGNIZED DRUG - OTHER] PO SCH (09:00)
[2023-11-02] MEDS ORDERED: MULTIVIT MINERALS PO SCH (09:00)
[2023-11-02] MEDS ORDERED: ASCORBIC ACID 1000 MG PO SCH (09:00)
[2023-11-02] MEDS ORDERED: LYCOPENE PO SCH (09:00)
[2023-11-02] MEDS ORDERED: HOME MED 1 EA UNK (Zinc [Zinc] 50 MG Tablet) PO SCH (09:00)
[2023-11-02] MEDS ORDERED: POTASSIUM CL SA 10 MEQ TAB PO ONE ×2 (11:08→11:28)
--- NOTE | 2023-11-02 15:21 | RAD REPORT ---
EXAM DESCRIPTION: RAD - Foot Left 2 View - 11/02/2023 3:10 pm CLINICAL HISTORY: Pain in the left foot COMPARISON: No comparisons FINDINGS: No acute fracture, dislocation or aggressive marrow lesion. Tiny calcaneal spurs. Moderate vascular atherosclerosis.
--- NOTE | 2023-11-02 15:26 | CON ---
Date of Consultation: 11/02/2023 Reason For Consultation: Elevated BUN and creatinine. History Of Present Illness: This is a pleasant 83-year-old gentleman, well known to me from the [facility] with significant past medical history of hypertension, GERD, PAD, CAD status post CABG back in , aortic valve replacement back in 2016, hyperlipidemia, chronic kidney dysfunction stage III, small size kidney 9.1/9.9, proteinuric, non-nephrotic secondary to hypertension, nephrosclerosis, renal va scular disease. Baseline creatinine as of June is 2 with GFR of 32. The patient came to the [facility] complaining of leg pain, bilateral, found to have occlusion on the upper PAD. The patient is seen by Cardiology. The patient denied taking any nonsteroidal, no IV contrast currently. Past Medical History: Include, 1.Hypertension. 2.Hyperlipidemia. 3.PAD. 4.CAD, status post CABG in 2015 and aortic valve replacement, 2016. 5.Hyperlipidemia. 6.GERD. Allergies: TO PENICILLIN AND XARELTO. Home Medications: Include, Tylenol, vitamin C, atorvastatin, cholecalciferol, Plavix, ferrous sulfat e, Lasix, losartan, Namenda, metoprolol, multivitamin, pantoprazole. Family History: Positive for hypertension and CAD. Social History: Lives with family. Denied smoking. Denied drinking. Denied drugs abuse. Review of Systems: Head and Neck: No red eye. No ear pain. GI: No nausea, no vomiting. : No polyuria, no dysuria, no hematuria. BUTT WELDER: Not applicable. RESPIRATORY: Has shortness of breath. CARDIOVASCULAR: No chest pain. Has leg pain. ENDOCRINE: No polydipsia. SKIN: No rash. NEURO: Has neuropathy. MUSCULOSKELETAL: Has leg pain. Physical Examination: General: When I saw the patient, the patient is lying in bed. Vital Signs: Blood pressure of 144/80, pulse of 85, afebrile. Chest: Faint rales, more prominent on the right base. Heart: S1, S2. Regular. Systolic murmur. Abdomen: Soft, nontender. Extremities: No edema. Decreased pulses on the lower extremity. Laboratory Data: Back in June 2023, creatinine 2, GFR of 32. On admission, hemoglobin 11.2. S odium 145, potassium 3.7, bicarb 31, BUN 56, creatinine 2.3, GFR 27, calcium 9.5. Today lab data, po tassium 3.4, creatinine 2.1, GFR of 30, calcium 9.3. BNP 2700. Chest x-ray, cardiomegaly. Current Medications: The patient on include, 1.Aspirin. 2.Plavix. 3.Hydralazine 25 b.i.d. 4.Metoprolol. 5.Atorvastatin. 6.Namenda. 7.Gabapentin. 8.Torsemide 40 daily. Assessment And Plan: 1.Chronic kidney disease, stable on baseline. I am going to continue slightly on the over volume si de. I am going to continue on the diuresis and we will monitor. 2.Hypertension. We will utilize blood pressure for more diuresis. 3.Peripheral arterial disease with severe occlusion. We will follow up with Cardiology if there is any plan for angioplasty to evaluate and monitor the kidney closely. 4.Hypokalemia. I will supplement. Thank you Dr. Price for allowing us to participate in the care of your patient. LINO Voice ID: [id number] Report ID: [id number]
--- NOTE | 2023-11-02 17:27 | EKG ---
Test Date: 2023-11-01 Test Time: 08:14:14 Precipitator Supervisor: DENY MEASUREMENT RESULTS: Intervals: Rate: 82 AL: QRSD: 90 QT: 392 QTc: 457 [place]: P: AL: QRS: 44 T: -6 INTERPRETIVE STATEMENTS: Atrial fibrillation Nonspecific T wave abnormality, probably digitalis effect Abnormal ECG Compared to ECG 09/25/2021 09:36:24 T-wave abnormality now present ST (T wave) deviation no longer present Possible ischemia no longer present Electronically Signed On 11-02-23 17:23:50 CAREER CENTER ADVISOR by Erik Gill
[2023-11-02] MEDS: FUROSEMIDE 40 MG/4 ML VIAL IV SCH (18:08)
[2023-11-02] MEDS: ROSUVASTATIN 10 MG TAB PO SCH (18:24)
[2023-11-02] MEDS: COCONUT OIL 1000 MG PO SCH ×2 (18:25→19:00)
[2023-11-02] MEDS: GABAPENTIN 100 MG CAP PO SCH ×2 (18:25→19:00)
[2023-11-03 05:30] LABS: Absolute Lymphocytes (CBC) 1.3 K/uL (0.7-4.9); Hematocrit 31.9 % (39.6-49.0); Lymphocytes % 12.9 % (15.3-44.8); MPV 7.6 fL (7.6-11.3); Platelets 224 thou/uL (152-406); RBC Red Blood Cell Count 3.39 M/uL (4.33-5.43)
[2023-11-03] MEDS: FUROSEMIDE 40 MG/4 ML VIAL IV SCH ×2 (05:37→17:32)
[2023-11-03] MEDS: DORZOLAMIDE 2% OPTH SCH ×3 (05:38→17:32)
[2023-11-03] MEDS: OPTH OPTH SCH ×3 (05:38→17:32)
[2023-11-03] MEDS: EYE OPTH SCH ×2 (05:39→17:32)
[2023-11-03] MEDS: TIMOLOL MALEATE 0.5% OPTH SCH ×2 (05:39→17:32)
[2023-11-03 05:44] LABS: Albumin 3.1 g/dL (3.4-5.0); Magnesium 2.6 mg/dL (1.6-2.4); Phosphorus 3.5 mg/dL (2.5-4.9); Potassium 3.5 mEq/L (3.5-5.1)
--- NOTE | 2023-11-03 08:22 | P.PN ---
Subjective Date of Service: 11/03/23 Chief Complaint: Shortness of breath Family at bedside is primary historian, reports patient has a history of severe PAD with pain with difficulty with ambulation PT eval, discharge planning for [facility] facility for rehab - Physical Exam General: Alert, In no apparent distress, Oriented x3 HEENT: Atraumatic, Normocephalic Neck: Supple, 2+ carotid pulse no bruit Respiratory: Normal air movement, Crackles/rales Cardiovascular: No edema, Normal pulses Capillary refill: <2 Seconds Gastrointestinal: Normal bowel sounds, Soft and benign Musculoskeletal: No clubbing, No swelling Integumentary: No rashes, No breakdown Neurological: Normal speech, Other (generalized weakness) Review of Systems per HPI Physical Examination - Vital Signs Temperature: 98.4 F Blood Pressure: 138/67 Pulse: 62 Respirations: 16 Pulse Ox (%): 98 Assessment And Plan - Plan Assessment plan Acute on diastolic chronic heart failure History Atrial Fib Cardiology consult, echo, telemetry, Diuretics, antilipid, antihypertensives, as needed analgesics trend bnp, elevated BNP 2605, [id number] troponin normal chest x-ray chronic small left pleural effusion with underlying atelectasis resume home meds ECHO . NORMAL LEFT VENTRICULAR EJECTION FRACTION 55-60% 2. SEVERE DIASTOLIC DYSFUNCTION 3. BI-ATRIAL ENLARGEMENT 4. MODERATE TRICUSPID REGURGITATION 5. CALCIFIED AORTIC VALVE WIT MODERATE AORTIC STENOSIS 6. MODERATE PULMONARY HYPERTENSION WITH RIGHT VENTRICULAR SYSTOLIC PRESSURE OF 55-60 mmHg impaired mobility Bilateral lower extremity leg pain Bilateral lower extremity peripheral artery disease reports history of progressive peripheral vascular disease with nonoperative arterial occlusions per patient's report from cardiology. bilateral lower extremity Dopplers IMPRESSION: 1. Right lower extremity: Monophasic flow throughout the right lower extremity which could indicate a more proximal moderate or severe stenosis such as at the iliac vessels. 2. Left lower extremity: Biphasic flow in the left common femoral and superficial femoral arteries. Monophasic flow in the popliteal artery suggesting a moderate to high-grade stenosis. The posterior tibial artery is either occluded or has minimal flow. The dorsalis pedis artery is occluded. fall precuations, PT eval Aaz-ntrtjed-pckljdhfr diabetes Sliding scale insulin, Accu-Cheks ACHS, Acute on chronic kidney injury CKD BUN 56 creatinine 2.32, estimated GFR 27,.->BUN 60, cr 2.25 trend kidney function nephrology consult Microcytic anemia likely secondary to anemia of chronic disease microcytic anemia 11.5 34.5, ->10.7,37.9 trend HH Hypertension Resume appropriate home meds Polio; as a kid fall precuations Dementia Fall precautions, supportive care Disposition [facility] for [facility] Full code DVT heparin Diet cardiac Discharge Plan: Long Term - Code Status/Comfort Care Code Status: Full Code Critical Care: No Time Spent Managing PTS Care (In Minutes): 35
--- NOTE | 2023-11-03 08:24 | ECHO ---
HEIGHT: 5 ft 4 in WEIGHT: 135 lb 0 oz DATE OF STUDY: 11/02/[address]: Tata Romano METALS ANALYSTHimanshu 2-DIMENSIONAL: YES M.MODE: YES DOPPLER: YES COLOR FLOW: YES TDS: PORTABLE: YES DEFINITY: BUBBLE STUDY: DIAGNOSIS: ACUTE ON CHRONIC HEART FAILURE CARDIAC HISTORY: CATHERIZATION: YES SURGERY: YES PROSTHETIC VALVE: YES PACEMAKER: NO MEASUREMENTS (cm) DIASTOLIC (NORMALS) SYSTOLIC (NORMALS) IVSd 1.2 (0.6-1.2) LA Diam 3.7 (1.9-4.0) LVEF 54% LVIDd 3.8 (3.5-5.7) LVIDs 2.8 (2.0-3.5) %FS 27% LVPWd 1.3 (0.6-1.2) Ao Diam 2.2 (2.0-3.7) 2 DIMENSIONAL ASSESSMENT: RIGHT ATRIUM: ENLARGED LEFT ATRIUM: ENLARGED RIGHT VENTRICLE: DILATED RIGHT VENTRICLE LEFT VENTRICLE: NORMAL TRICUSPID VALVE: MODERATE TRICUSPID REGURGITATION MITRAL VALVE: MITRAL ANNULAR CALCIFICATION PULMONIC VALVE: MILD PULMONIC INSUFFICIENCY AORTIC VALVE: CALCIFIED WITH MODERATE AORTIC STENOSIS PERICARDIAL EFFUSION: NONE AORTIC ROOT: NORMAL LEFT VENTRICULAR WALL MOTION: NORMAL DOPPLER/COLOR FLOW: SEE BELOW COMMENTS: 1. NORMAL LEFT VENTRICULAR EJECTION FRACTION 55-60% 2. SEVERE DIASTOLIC DYSFUNCTION 3. BI-ATRIAL ENLARGEMENT 4. MODERATE TRICUSPID REGURGITATION 5. CALCIFIED AORTIC VALVE WIT MODERATE AORTIC STENOSIS 6. MODERATE PULMONARY HYPERTENSION WITH RIGHT VENTRICULAR SYSTOLIC PRESSURE OF 55-60 mmHg TECHNOLOGIST: VANGIE RIVAS
[2023-11-03] MEDS: ZINC SULFATE 220 MG CAP PO SCH (08:58)
[2023-11-03] MEDS: ASCORBIC ACID 500 MG TABLET PO SCH (08:58)
[2023-11-03] MEDS: CLOPIDOGREL 75 MG TABLET PO SCH (08:58)
[2023-11-03] MEDS: ASPIRIN EC 81 MG TAB PO SCH (08:58)
[2023-11-03] MEDS: GALANTAMINE 4 MG TAB PO SCH ×2 (08:58→17:30)
[2023-11-03] MEDS: OCUVITE (VIT A,C & E/LUTEIN/MINERAL) TABLET PO SCH (08:58)
[2023-11-03] MEDS: DOCUSATE NA 100 MG CAP PO SCH ×2 (08:58→17:31)
[2023-11-03] MEDS: Multi-VIT(Centravite Senior) 1 TAB TAB PO SCH (08:58)
[2023-11-03] MEDS: PANTOPRAZOLE 40MG TABLET PO SCH (08:58)
[2023-11-03] MEDS: HYDRALAZINE HCL 25 MG TABLET PO SCH ×2 (08:59→17:37)
[2023-11-03] MEDS: MEMANTINE HCL 10 MG TABLET PO SCH ×2 (09:00→17:31)
[2023-11-03] MEDS ORDERED: GALANTAMINE 4 MG TAB PO SCH (09:00)
[2023-11-03] MEDS ORDERED: POTASSIUM CL SA 10 MEQ TAB PO ONE (09:00)
[2023-11-03] MEDS: METOPROLOL TAR 50 MG TAB PO SCH ×2 (09:00→17:30)
[2023-11-03] MEDS: GLUCOSAM/CHONDROI 500mg-400mg PO SCH ×2 (09:00→17:31)
[2023-11-03] MEDS: DOCOSAHEXANOIC AC/EPA 1000 MG PO SCH ×2 (09:00→17:31)
[2023-11-03] MEDS: COCONUT OIL 1000 MG PO SCH ×2 (17:31→21:00)
[2023-11-03] MEDS: GABAPENTIN 100 MG CAP PO SCH (17:31)
[2023-11-03] MEDS: ROSUVASTATIN 10 MG TAB PO SCH (17:37)
--- NOTE | 2023-11-03 19:51 | PN ---
Date of Progress Note: 11/03/2023 Subjective: Seen by bedside. He diuresed well overnight and doing much better clinically. Review of Systems: No chest pain. Has orthopnea and lower extremity edema and shortness of breath with activities. No dysuria, polyuria, or urinary urgency. All other systems reviewed, they are negative. Objective: Vital Signs: Reviewed. Head and Neck: Pupils are equal, reactive to light. Intact eye movements. No cervical lymphadenopa thy. Positive JVD. Lungs: Decreased breathing sounds with crackles at both lung bases improved comparing to 2 days ago. Heart: Irregular. No extra sounds. Abdomen: Soft, nontender. Bowel sounds positive. No organomegaly. No masses or hernia. No rigidi ty or rebound. Extremities: Trace edema bilateral. No clubbing or cyanosis. Intact pulses. Skin: No rashes. Neurologic: Alert, awake, oriented x3. No acute focal deficits appreciated. Investigations: Labs are reviewed. Assessment/recommendation: 1.Acute on chronic congestive heart failure exacerbation, responded very well to IV Lasix. Continue for one more day. After tonight's dose, no further IV Lasix and re-evaluate his BUN and creatinine tomorrow and electrolytes. Low salt diet and monitor daily weight. 2.Peripheral vascular disease. Needs an angiogram. However, he has advanced kidney failure. At th is point, we will have to weigh out the risks and benefits. Consult Nephrology and estimate the risk and will plan accordingly. 3.Atrial fibrillation is controlled now. Continue metoprolol and baby aspirin. 4.Dyslipidemia. Continue statin. SR/MODL Voice ID: [id number] Report ID: [id number]
[2023-11-03] MEDS: VITAMIN D 5,000 UNIT CAP PO SCH (22:03)
--- NOTE | 2023-11-03 23:00 | PN ---
Date of Progress Note: 11/03/2023 Chief Complaint: Acute on chronic kidney injury. History Of Present Illness: The patient is an 83-year-old man with history of chronic kidney disease . He presented to the hospital because of generalized weakness. He has multiple medical problems in cluding hypertension, GERD, peripheral arterial disease, coronary artery disease status post CABG, ao rtic valve replacement back in 2016, hyperlipidemia, chronic kidney disease stage 3, small-sized kidn eys, right kidney 9.1 and left kidney 9.9 cm, has non-nephrotic range proteinuria secondary to hypert ensive kidney disease and nephrosclerosis as well as renovascular disease. Baseline serum creatinine level back in June was 2 and GFR was 32. The patient came to the hospital because of leg pain, generalized weakness. He complained of bilateral lower extremity pain. He was found to have chroni c and acute ischemia of lower extremity and is consulted by entry level chemist. Review of Systems: Denies chest pain, palpitation. Physical Examination: LUNGS: Clear to auscultation bilaterally. HEART: S1-S2. ABDOMEN: Soft, benign, nontender. EXTREMITIES: Slight edema. Laboratory Data: Creatinine level is 2.3, BUN 56. Hemoglobin 11.2. Sodium 145, potassium 3.7. Impression: 1.Chronic kidney disease. Prerenal azotemia present. High BUN-creatinine ratio. Creatinine level is 2.3, previous baseline was 2.0. There is some prerenal azotemia. Patient is on diuretic because of volume overload. 2.Hypertension. Continue blood pressure medication. 3.Peripheral vascular disease with severe occlusive disease. The patient will be followed by cardio logist. Patient may require angioplasty and this will require IV contrast. Patient has high risk of contrast induced nephropathy. 4.Hypokalemia. Continue supplementation. EB/MODL Voice ID: [id number] Report ID: [id number]
[2023-11-04 05:30] LABS: Absolute Lymphocytes (CBC) 1.2 K/uL (0.7-4.9); Hematocrit 32.4 % (39.6-49.0); Lymphocytes % 12.5 % (15.3-44.8); MCV 92.9 fL (80-100); MPV 7.6 fL (7.6-11.3); Platelets 224 thou/uL (152-406); RBC Red Blood Cell Count 3.48 M/uL (4.33-5.43)
[2023-11-04 05:52] LABS: Magnesium 2.6 mg/dL (1.6-2.4); Phosphorus 3.5 mg/dL (2.5-4.9); Potassium 3.5 mEq/L (3.5-5.1)
[2023-11-04] MEDS: DORZOLAMIDE 2% OPTH SCH ×3 (06:00→17:49)
[2023-11-04] MEDS: OPTH OPTH SCH ×3 (06:00→17:49)
[2023-11-04] MEDS: ACETAMINOPHEN 325 MG TABLET PO PRN (06:13)
[2023-11-04] MEDS: EYE OPTH SCH ×2 (06:13→17:51)
[2023-11-04] MEDS: TIMOLOL MALEATE 0.5% OPTH SCH ×2 (06:13→17:51)
[2023-11-04] MEDS: FUROSEMIDE 40 MG/4 ML VIAL IV SCH ×2 (07:13→17:49)
--- NOTE | 2023-11-04 07:45 | P.PN ---
Subjective Date of Service: 11/05/23 Chief Complaint: Shortness of breath Family at bedside is primary historian, reports patient has a history of severe PAD with pain with difficulty with ambulation PT eval, discharge planning for group home facility for rehab - Physical Exam General: Alert, In no apparent distress, Oriented x3 HEENT: Atraumatic, Normocephalic Neck: Supple, 2+ carotid pulse no bruit Respiratory: Normal air movement, Crackles/rales Cardiovascular: No edema, Normal pulses Capillary refill: <2 Seconds Gastrointestinal: Normal bowel sounds, Soft and benign Musculoskeletal: No clubbing, No swelling Integumentary: No rashes, No breakdown Neurological: Normal speech, Other (generalized weakness) <Tata Romano - Last Filed: 11/05/23 10:19> Date of Service: 11/04/23 <Liz Alvarado - Last Filed: 11/05/23 10:21> Physical Examination - Vital Signs Temperature: 97.9 F Blood Pressure: 139/81 Pulse: 60 Respirations: 18 Pulse Ox (%): 94 <Tata Romano - Last Filed: 11/05/23 10:19> Assessment And Plan - Plan Assessment plan Acute on diastolic chronic heart failure History Atrial Fib Cardiology consult, echo, telemetry, Diuretics, antilipid, antihypertensives, as needed analgesics trend bnp, elevated BNP 2605, [id number] troponin normal chest x-ray chronic small left pleural effusion with underlying atelectasis resume home meds ECHO . NORMAL LEFT VENTRICULAR EJECTION FRACTION 55-60% 2. SEVERE DIASTOLIC DYSFUNCTION 3. BI-ATRIAL ENLARGEMENT 4. MODERATE TRICUSPID REGURGITATION 5. CALCIFIED AORTIC VALVE WIT MODERATE AORTIC STENOSIS 6. MODERATE PULMONARY HYPERTENSION WITH RIGHT VENTRICULAR SYSTOLIC PRESSURE OF 55-60 mmHg impaired mobility Bilateral lower extremity leg pain Bilateral lower extremity peripheral artery disease reports history of progressive peripheral vascular disease with nonoperative arterial occlusions per patient's report from cardiology. bilateral lower extremity Dopplers IMPRESSION: 1. Right lower extremity: Monophasic flow throughout the right lower extremity which could indicate a more proximal moderate or severe stenosis such as at the iliac vessels. 2. Left lower extremity: Biphasic flow in the left common femoral and superficial femoral arteries. Monophasic flow in the popliteal artery suggesting a moderate to high-grade stenosis. The posterior tibial artery is either occluded or has minimal flow. The dorsalis pedis artery is occluded. fall precuations, PT eval Sgy-omqjipq-xxemjhkse diabetes Sliding scale insulin, Accu-Cheks ACHS, Acute on chronic kidney injury CKD BUN 56 creatinine 2.32, estimated GFR 27,.->BUN 60, cr 2.25 trend kidney function nephrology consult Microcytic anemia likely secondary to anemia of chronic disease microcytic anemia 11.5 34.5, ->10.7,37.9 trend HH Hypertension Resume appropriate home meds Polio; as a kid fall precuations Dementia Fall precautions, supportive care Disposition group home facility for rehab Full code DVT heparin Diet cardiac <Tata Romano - Last Filed: 11/05/23 10:19>
[2023-11-04] MEDS: VITAMIN D 5,000 UNIT CAP PO SCH (08:36)
[2023-11-04] MEDS: GLUCOSAM/CHONDROI 500mg-400mg PO SCH ×2 (08:36→17:46)
[2023-11-04] MEDS: ASCORBIC ACID 500 MG TABLET PO SCH (08:36)
[2023-11-04] MEDS: DOCOSAHEXANOIC AC/EPA 1000 MG PO SCH ×2 (08:36→17:47)
[2023-11-04] MEDS: DOCUSATE NA 100 MG CAP PO SCH ×2 (08:36→17:48)
[2023-11-04] MEDS: GALANTAMINE 4 MG TAB PO SCH ×2 (08:36→17:48)
[2023-11-04] MEDS: METOPROLOL TAR 50 MG TAB PO SCH ×2 (08:37→17:48)
[2023-11-04] MEDS: OCUVITE (VIT A,C & E/LUTEIN/MINERAL) TABLET PO SCH (08:37)
[2023-11-04] MEDS: PANTOPRAZOLE 40MG TABLET PO SCH (08:37)
[2023-11-04] MEDS: MEMANTINE HCL 10 MG TABLET PO SCH ×2 (08:38→17:47)
[2023-11-04] MEDS: HYDRALAZINE HCL 25 MG TABLET PO SCH ×2 (08:38→17:47)
[2023-11-04] MEDS: ASPIRIN EC 81 MG TAB PO SCH (08:38)
[2023-11-04] MEDS: ZINC SULFATE 220 MG CAP PO SCH (08:38)
[2023-11-04] MEDS: CLOPIDOGREL 75 MG TABLET PO SCH (08:38)
[2023-11-04] MEDS: Multi-VIT(Centravite Senior) 1 TAB TAB PO SCH (08:38)
[2023-11-04] MEDS ORDERED: POTASSIUM CL SA 10 MEQ TAB PO ONE (09:00)
--- NOTE | 2023-11-04 14:37 | P.PN ---
Subjective Date of Service: 11/04/23 Chief Complaint: Shortness of breath Subjective: No new changes Physical Examination - Vital Signs Temperature: 98.2 F Blood Pressure: 145/69 Pulse: 88 Respirations: 18 Pulse Ox (%): 95 - Physical Exam General: Other (chronically ill-appearing) HEENT: Atraumatic, Normocephalic Neck: Supple Respiratory: Other (symmetric chest expansion) Cardiovascular: No rubs, No murmurs Gastrointestinal: Soft and benign Musculoskeletal: No clubbing Integumentary: No warmth Neurological: Normal tone Lymphatics: No axilla or inguinal lymphadenopathy Urinary: Other (no bladder distention) External genitalia: Deferred Rectal: Deferred Assessment And Plan - Plan 1. Chronic kidney disease. Prerenal azotemia present. High BUN-creatinine ratio. SCr plateaued at 2.2. Garfield po fluid intake at least 1.5-2L per day. 2. Hypertension. Continue current med regimen. 3. Acute on chronid diastolic HF. BNP sig elevated. Cont lasix IV bid. 4. Peripheral vascular disease with severe occlusive disease. At high risk for contrast nephropathy. 5. Anemia. Monitor cbc. 6. Dementia. Supportive care
[2023-11-04] MEDS: ROSUVASTATIN 10 MG TAB PO SCH (17:47)
[2023-11-04] MEDS: GABAPENTIN 100 MG CAP PO SCH (17:48)
[2023-11-04] MEDS: COCONUT OIL 1000 MG PO SCH ×2 (17:49→20:02)
--- NOTE | 2023-11-04 19:48 | PN ---
Date of Progress Note: 11/04/2023 Subjective: Seen by bedside. Doing clinically well. He is breathing much better. No significant s hortness of breath and orthopnea and lower extremity pain is better. Review of Systems: No chest pain. No shortness of breath. Has mild orthopnea. No nausea, vomiting, or diarrhea. No a bdominal pain. All other systems were reviewed, they were negative. Objective: Vital Signs: Reviewed. Head and Neck: Pupils are equal, reactive to light. Intact eye movements. No cervical lymphadenopa thy. Neck is supple. Thyroid is not enlarged. Lungs: Clear to auscultation bilaterally. No rhonchi, wheezing, or crackles. No accessory muscle u se Heart: Irregular. No extra sounds. Abdomen: Soft, nontender. Bowel sounds positive. No organomegaly. No masses or hernia. No rigidi ty or rebound. Extremities: No clubbing or cyanosis. Intact pulses. Skin: No rash or nodule. Neurologic: Alert, awake, oriented x3. No acute focal deficits appreciated. Lymph Nodes: No cervical or axillary lymphadenopathy. Investigations: Labs were reviewed. Assessment And Recommendations: 1.Acute on chronic diastolic heart failure exacerbation. Continue IV diuresis 1 more day and tomorr ow switch to oral diuretics and to get the patient out of bed in preparation to discharge home. 2.Peripheral vascular disease. Seems to be doing better. I will hold off on angiogram now due to a dvanced kidney disease and overall poor condition as his symptoms are controlled and no acute ischemi a is present. 3.Atrial fibrillation, stable. Continue current management. Cardiology will sign off and once he is released to follow up with me within a week of discharge. SR/MODL Voice ID: [id number] Report ID: [id number]
[2023-11-05] MEDS: FUROSEMIDE 40 MG/4 ML VIAL IV SCH ×3 (06:00→17:48)
[2023-11-05] MEDS: EYE OPTH SCH ×2 (06:00→17:50)
[2023-11-05] MEDS: TIMOLOL MALEATE 0.5% OPTH SCH ×2 (06:00→17:50)
[2023-11-05] MEDS: DORZOLAMIDE 2% OPTH SCH ×3 (06:00→17:49)
[2023-11-05] MEDS: OPTH OPTH SCH ×3 (06:00→17:49)
[2023-11-05 06:40] LABS: Absolute Lymphocytes (CBC) 1.5 K/uL (0.7-4.9); Hematocrit 34.6 % (39.6-49.0); Lymphocytes % 14.1 % (15.3-44.8); MCV 93.2 fL (80-100); MPV 7.2 fL (7.6-11.3); Platelets 263 thou/uL (152-406); RBC Red Blood Cell Count 3.71 M/uL (4.33-5.43)
[2023-11-05 06:59] LABS: Magnesium 2.6 mg/dL (1.6-2.4); Phosphorus 3.7 mg/dL (2.5-4.9); Potassium 3.8 mEq/L (3.5-5.1)
[2023-11-05] MEDS: CODEINE 30MG/APAP 300MG TAB PO PRN (07:43)
[2023-11-05] MEDS: Multi-VIT(Centravite Senior) 1 TAB TAB PO SCH (08:50)
[2023-11-05] MEDS: GALANTAMINE 4 MG TAB PO SCH ×2 (08:50→17:48)
[2023-11-05] MEDS: ASPIRIN EC 81 MG TAB PO SCH (08:50)
[2023-11-05] MEDS: METOPROLOL TAR 50 MG TAB PO SCH ×2 (08:51→17:48)
[2023-11-05] MEDS: MEMANTINE HCL 10 MG TABLET PO SCH ×2 (08:51→17:49)
[2023-11-05] MEDS: CLOPIDOGREL 75 MG TABLET PO SCH (08:51)
[2023-11-05] MEDS: HYDRALAZINE HCL 25 MG TABLET PO SCH ×2 (08:51→17:49)
[2023-11-05] MEDS: DOCOSAHEXANOIC AC/EPA 1000 MG PO SCH ×2 (08:52→17:48)
[2023-11-05] MEDS: DOCUSATE NA 100 MG CAP PO SCH ×2 (08:52→17:48)
[2023-11-05] MEDS: ASCORBIC ACID 500 MG TABLET PO SCH (08:52)
[2023-11-05] MEDS: ZINC SULFATE 220 MG CAP PO SCH (08:53)
[2023-11-05] MEDS: PANTOPRAZOLE 40MG TABLET PO SCH (08:53)
[2023-11-05] MEDS: GLUCOSAM/CHONDROI 500mg-400mg PO SCH ×2 (08:53→17:48)
[2023-11-05] MEDS: OCUVITE (VIT A,C & E/LUTEIN/MINERAL) TABLET PO SCH (08:53)
[2023-11-05] MEDS ORDERED: POTASSIUM CL SA 10 MEQ TAB PO ONE (09:00)
--- NOTE | 2023-11-05 10:23 | P.PN ---
Subjective Date of Service: 11/05/23 Chief Complaint: Shortness of breath reports patient has a history of severe PAD with pain with difficulty with ambulation, discharge planning for [facility] for rehab - Physical Exam General: Alert, In no apparent distress, Oriented x3 HEENT: Atraumatic, Normocephalic Neck: Supple, 2+ carotid pulse no bruit Respiratory: Normal air movement, Crackles/rales Cardiovascular: No edema, Normal pulses Capillary refill: <2 Seconds Gastrointestinal: Normal bowel sounds, Soft and benign Musculoskeletal: No clubbing, No swelling Integumentary: No rashes, No breakdown Neurological: Normal speech, Other (generalized weakness) Review of Systems per HPI Physical Examination - Vital Signs Temperature: 97.9 F Blood Pressure: 139/81 Pulse: 60 Respirations: 18 Pulse Ox (%): 94 Assessment And Plan - Plan Assessment plan Acute on diastolic chronic heart failure History Atrial Fib Cardiology consult, echo, telemetry, Diuretics, antilipid, antihypertensives, as needed analgesics trend bnp, elevated BNP 2605, [id number]->2088 troponin normal chest x-ray chronic small left pleural effusion with underlying atelectasis resume home meds ECHO . NORMAL LEFT VENTRICULAR EJECTION FRACTION 55-60% 2. SEVERE DIASTOLIC DYSFUNCTION 3. BI-ATRIAL ENLARGEMENT 4. MODERATE TRICUSPID REGURGITATION 5. CALCIFIED AORTIC VALVE WIT MODERATE AORTIC STENOSIS 6. MODERATE PULMONARY HYPERTENSION WITH RIGHT VENTRICULAR SYSTOLIC PRESSURE OF 55-60 mmHg impaired mobility Bilateral lower extremity leg pain Bilateral lower extremity peripheral artery disease reports history of progressive peripheral vascular disease with nonoperative arterial occlusions per patient's report from cardiology. bilateral lower extremity Dopplers IMPRESSION: 1. Right lower extremity: Monophasic flow throughout the right lower extremity which could indicate a more proximal moderate or severe stenosis such as at the iliac vessels. 2. Left lower extremity: Biphasic flow in the left common femoral and superficial femoral arteries. Monophasic flow in the popliteal artery suggesting a moderate to high-grade stenosis. The posterior tibial artery is either occluded or has minimal flow. The dorsalis pedis artery is occluded. fall precuations, PT eval Sub-fuxlkrh-pdvhiegta diabetes Sliding scale insulin, Accu-Cheks ACHS, Acute on chronic kidney injury CKD BUN 56 creatinine 2.32, estimated GFR 27,.->BUN 60, cr 2.25->BUN 53, Cr 20.6 eGFR 29 trend kidney function, on Lasix for CHF nephrology consult Microcytic anemia likely secondary to anemia of chronic disease stable microcytic anemia 11.5 34.5, ->10.7,37.9 trend HH Hypertension Resume appropriate home meds Polio; as a kid fall precuations Dementia Fall precautions, supportive care Disposition facility for rehab Full code DVT heparin Diet cardiac Discharge Plan: Other (Rehab) - Code Status/Comfort Care Code Status: Full Code Critical Care: No Time Spent Managing PTS Care (In Minutes): 35
[2023-11-05] MEDS: SENOSIDES 8.6 MG TAB PO PRN (12:44)
[2023-11-05] MEDS: GABAPENTIN 100 MG CAP PO SCH (17:48)
[2023-11-05] MEDS: COCONUT OIL 1000 MG PO SCH ×2 (17:51)
[2023-11-05] MEDS: ROSUVASTATIN 10 MG TAB PO SCH (17:54)
[2023-11-06] MEDS: EYE OPTH SCH ×2 (05:21→18:07)
[2023-11-06] MEDS: OPTH OPTH SCH ×3 (05:21→18:07)
[2023-11-06] MEDS: TIMOLOL MALEATE 0.5% OPTH SCH ×2 (05:21→18:07)
[2023-11-06] MEDS: DORZOLAMIDE 2% OPTH SCH ×3 (05:21→18:07)
[2023-11-06 07:05] LABS: Albumin 2.8 g/dL (3.4-5.0); Phosphorus 3.4 mg/dL (2.5-4.9); Potassium 3.7 mEq/L (3.5-5.1)
[2023-11-06] MEDS: ASCORBIC ACID 500 MG TABLET PO SCH (09:01)
[2023-11-06] MEDS: ZINC SULFATE 220 MG CAP PO SCH (09:01)
[2023-11-06] MEDS: PANTOPRAZOLE 40MG TABLET PO SCH (09:01)
[2023-11-06] MEDS: CLOPIDOGREL 75 MG TABLET PO SCH (09:01)
[2023-11-06] MEDS: Multi-VIT(Centravite Senior) 1 TAB TAB PO SCH (09:01)
[2023-11-06] MEDS: ASPIRIN EC 81 MG TAB PO SCH (09:01)
[2023-11-06] MEDS: HYDRALAZINE HCL 25 MG TABLET PO SCH ×2 (09:01→20:44)
[2023-11-06] MEDS: GLUCOSAM/CHONDROI 500mg-400mg PO SCH ×2 (09:01→17:12)
[2023-11-06] MEDS: OCUVITE (VIT A,C & E/LUTEIN/MINERAL) TABLET PO SCH (09:01)
[2023-11-06] MEDS: FUROSEMIDE 40 MG/4 ML VIAL IV SCH ×2 (09:02→17:11)
[2023-11-06] MEDS: DOCUSATE NA 100 MG CAP PO SCH ×2 (09:09→17:18)
[2023-11-06] MEDS: DOCOSAHEXANOIC AC/EPA 1000 MG PO SCH ×2 (09:09→17:12)
[2023-11-06] MEDS: METOPROLOL TAR 50 MG TAB PO SCH ×2 (09:14→17:13)
[2023-11-06] MEDS: CODEINE 30MG/APAP 300MG TAB PO PRN (09:14)
[2023-11-06] MEDS: GALANTAMINE 4 MG TAB PO SCH ×2 (09:15→17:12)
[2023-11-06] MEDS: MEMANTINE HCL 10 MG TABLET PO SCH ×2 (09:15→17:12)
--- NOTE | 2023-11-06 09:36 | RAD REPORT ---
EXAM DESCRIPTION: US - Renal Ultrasound-Complete - 11/06/2023 8:43 am CLINICAL HISTORY: chito, ckd COMPARISON: Abdomen Exam Complete dated 09/12/2023; Abdomen Pelvis Wo Contrast dated 09/22/2022; Lo wer Extremity Arterial Bilat dated 11/01/2023 FINDINGS: Both kidneys are normal in size, shape and echotexture. The right kidney measures 8.9 cm. No hydronephrosis, focal mass or perinephric fluid. The left kidney measures 9.6 cm. Two echogenic foci noted in the left kidney, the larger measuring 6 millimeters in the smaller measuring 5 millimeters. No hydronephrosis. The urinary bladder is incompletely distended without gross abnormality seen. IMPRESSION: No evidence of hydronephrosis. Echogenic foci in the left kidney may represent nonobstru cting renal calculi.
--- NOTE | 2023-11-06 10:19 | P.PN ---
Subjective Date of Service: 11/06/23 Chief Complaint: Shortness of breath No reported falls,, reports generalized weakness [facility] planning [facility] - Physical Exam General: Alert, In no apparent distress, Oriented x3 HEENT: Atraumatic, Normocephalic Neck: Supple, 2+ carotid pulse no bruit Respiratory: Normal air movement, Crackles/rales Cardiovascular: No edema, Normal pulses Capillary refill: <2 Seconds Gastrointestinal: Normal bowel sounds, Soft and benign Musculoskeletal: No clubbing, No swelling Integumentary: No rashes, No breakdown Neurological: Normal speech, Other (generalized weakness) Review of Systems per HPI Physical Examination - Vital Signs Temperature: 97.9 F Blood Pressure: 154/82 Pulse: 71 Respirations: 16 Pulse Ox (%): 96 Assessment And Plan - Plan Assessment plan Acute on diastolic chronic heart failure impoved History Atrial Fib Cardiology consult, echo, telemetry, Diuretics, antilipid, antihypertensives, as needed analgesics trend bnp, elevated BNP 2605, [id number]->2088-> troponin normal chest x-ray chronic small left pleural effusion with underlying atelectasis resume home meds ECHO . NORMAL LEFT VENTRICULAR EJECTION FRACTION 55-60% 2. SEVERE DIASTOLIC DYSFUNCTION 3. BI-ATRIAL ENLARGEMENT 4. MODERATE TRICUSPID REGURGITATION 5. CALCIFIED AORTIC VALVE WIT MODERATE AORTIC STENOSIS 6. MODERATE PULMONARY HYPERTENSION WITH RIGHT VENTRICULAR SYSTOLIC PRESSURE OF 55-60 mmHg impaired mobility Bilateral lower extremity leg pain Bilateral lower extremity peripheral artery disease reports history of progressive peripheral vascular disease with nonoperative arterial occlusions per patient's report from cardiology. bilateral lower extremity Dopplers IMPRESSION: 1. Right lower extremity: Monophasic flow throughout the right lower extremity which could indicate a more proximal moderate or severe stenosis such as at the iliac vessels. 2. Left lower extremity: Biphasic flow in the left common femoral and superficial femoral arteries. Monophasic flow in the popliteal artery suggesting a moderate to high-grade stenosis. The posterior tibial artery is either occluded or has minimal flow. The dorsalis pedis artery is occluded. fall precuations, PT eval Plan to DC In pt rehab prior to dc Ddy-skbhvtf-uxlicvahy diabetes Sliding scale insulin, Accu-Cheks ACHS, Acute on chronic kidney injury CKD improving BUN 56 creatinine 2.32, estimated GFR 27,.->BUN 60, cr 2.25->BUN 53, Cr 20.6 eGFR 29 ->Cr 1.86-> bun 28/cr 2.06 trend kidney function, on Lasix for CHF nephrology following Microcytic anemia likely secondary to anemia of chronic disease stable microcytic anemia 11.5 34.5, ->10.7,37.9->11.5 trend HH Hypertension Resume appropriate home meds Polio; as a kid fall precuations Dementia Fall precautions, supportive care Disposition facility for rehab Full code DVT heparin Diet cardiac Discharge Plan: Care Home - Code Status/Comfort Care Code Status: Full Code Critical Care: No Time Spent Managing PTS Care (In Minutes): 35
[2023-11-06] MEDS: GABAPENTIN 100 MG CAP PO SCH (17:12)
[2023-11-06] MEDS: COCONUT OIL 1000 MG PO SCH ×2 (17:12→20:44)
[2023-11-06] MEDS: ROSUVASTATIN 10 MG TAB PO SCH (20:44)
--- NOTE | 2023-11-06 23:27 | PN ---
Date of Progress Note: 11/06/2023 Chief Complaint: Acute on chronic kidney injury. Subjective: The patient has multiple medical problems. He had workup done for acute kidney injury a nd renal ultrasound was ordered. The patient has underlying chronic kidney disease. Serum creatinin e has improved from Physical Examination: Lungs: Clear to auscultation bilaterally. Heart: S1, S2. Abdomen: benign. Extremities: Right ankle edema. Impression: Chronic kidney disease, prerenal azotemia, continue to monitor renal function . Avoid nephrotoxic medication. EB/MODL Voice ID: [id number] Report ID: [id number]
[2023-11-07 05:31] LABS: Albumin 2.9 g/dL (3.4-5.0); Phosphorus 3.6 mg/dL (2.5-4.9); Potassium 3.7 mEq/L (3.5-5.1)
[2023-11-07] MEDS: TIMOLOL MALEATE 0.5% OPTH SCH ×2 (05:36→18:01)
[2023-11-07] MEDS: EYE OPTH SCH ×2 (05:36→18:01)
[2023-11-07] MEDS: OPTH OPTH SCH ×3 (05:37→18:01)
[2023-11-07] MEDS: DORZOLAMIDE 2% OPTH SCH ×3 (05:37→18:01)
[2023-11-07] MEDS ORDERED: POTASSIUM 25 MEQ EFFERV TAB PO ONE (09:00)
[2023-11-07] MEDS: ZINC SULFATE 220 MG CAP PO SCH (09:51)
[2023-11-07] MEDS: Multi-VIT(Centravite Senior) 1 TAB TAB PO SCH (09:51)
[2023-11-07] MEDS: OCUVITE (VIT A,C & E/LUTEIN/MINERAL) TABLET PO SCH (09:51)
[2023-11-07] MEDS: MEMANTINE HCL 10 MG TABLET PO SCH ×2 (09:52→17:59)
[2023-11-07] MEDS: CLOPIDOGREL 75 MG TABLET PO SCH (09:52)
[2023-11-07] MEDS: METOPROLOL TAR 50 MG TAB PO SCH ×2 (09:52→18:00)
[2023-11-07] MEDS: ASPIRIN EC 81 MG TAB PO SCH (09:52)
[2023-11-07] MEDS: GALANTAMINE 4 MG TAB PO SCH ×2 (09:53→17:58)
[2023-11-07] MEDS: HYDRALAZINE HCL 25 MG TABLET PO SCH ×2 (09:53→18:00)
[2023-11-07] MEDS: DOCOSAHEXANOIC AC/EPA 1000 MG PO SCH ×2 (09:53→17:58)
[2023-11-07] MEDS: GLUCOSAM/CHONDROI 500mg-400mg PO SCH ×2 (09:53→18:00)
[2023-11-07] MEDS: PANTOPRAZOLE 40MG TABLET PO SCH (09:53)
[2023-11-07] MEDS: FUROSEMIDE 40 MG/4 ML VIAL IV SCH ×2 (09:53→16:16)
[2023-11-07] MEDS: DOCUSATE NA 100 MG CAP PO SCH ×2 (09:53→18:00)
[2023-11-07] MEDS: ASCORBIC ACID 500 MG TABLET PO SCH (09:53)
--- NOTE | 2023-11-07 11:45 | PN ---
Chief Complaint: Cardiorenal syndrome , CKD History Of Present Illness: The patient presented to the hospital because of shortness of breath. He was found to have prerenal azotemia, labs showed high BUN/Creatinine ratio. Serum creatinine is plateauing at 2.2. The patient is tolerating p.o. intake. Review of Systems: Denies chest pain, palpitation. Physical Examination: LUNGS: Clear to auscultation bilaterally. HEART: S1, S2. ABDOMEN: Soft, benign. EXTREMITIES: No edema. Impression And Plan: 1. Chronic kidney disease, prerenal azotemia. High BUN and creatinine ratio. Serum creatinine plateaued at 2.2. Patient will continue adequate hydration, 1.5-2 L per day. 2. Acute on chronic congestive heart failure. BNP is significantly elevated. Continue to monitor labs, daily weight. 4. Peripheral vascular disease with severe occlusive disease. At high risk for contrast induced nephropathy. Recruiting Internship is evaluating the patient. 5. Anemia. Monitor CBC. 6. Dementia. Recommendation per primary team. LATESHA/REBEKAH Voice ID: [id number] Report ID: [id number] MTDD
[2023-11-07] MEDS ORDERED: POTASSIUM CL SA 10 MEQ TAB PO ONE (12:00)
[2023-11-07] MEDS: SENOSIDES 8.6 MG TAB PO PRN (12:00)
--- NOTE | 2023-11-07 16:30 | P.PN ---
Subjective Date of Service: 11/07/23 Chief Complaint: Shortness of breath Subjective: Improving Patient denies any signs and symptoms of distress. Patient currently denies any bilateral lower extremity pain. <Isauro Huffman - Last Filed: 11/07/23 16:31> Date of Service: 11/07/23 <Jona Nix - Last Filed: 11/07/23 21:48> Review of Systems General: Unremarkable Eyes: Unremarkable ENT: Unremarkable Respiratory: Unremarkable Cardiovascular: Unremarkable Gastrointestinal: Unremarkable Genitourinary: Unremarkable Musculoskeletal: Unremarkable Integumentary: Unremarkable Neurological: Unremarkable Lymphatics: Unremarkable <Isauro Huffman - Last Filed: 11/07/23 16:31> Physical Examination - Vital Signs Temperature: 97.0 F Blood Pressure: 135/68 Pulse: 87 Respirations: 16 Pulse Ox (%): 94 - Physical Exam General: Alert, In no apparent distress, Cooperative HEENT: Atraumatic, PERRLA, EOMI Neck: Supple, JVD not distended Respiratory: Clear to auscultation bilaterally, Normal air movement Cardiovascular: No edema, Regular rate/rhythm, Normal S1 S2 Capillary refill: <2 Seconds Gastrointestinal: Normal bowel sounds, No tenderness Musculoskeletal: No clubbing, No swelling, No tenderness Integumentary: No rashes Neurological: Normal speech, Normal tone, Normal affect Lymphatics: No axilla or inguinal lymphadenopathy <Isauro Huffman - Last Filed: 11/07/23 16:31> Assessment And Plan - Plan Interval history. 11/07/2023. Patient seen at bedside. Denies any signs or symptoms of distress. Patient also denies bilateral lower extremity pain. Nephrology is managing GAURAV. Patient working with physical therapy. Pending discharge to rehab. Awaiting insurance approval. Continue supportive care. History Atrial Fib Cardiology consult, echo, telemetry, Diuretics, antilipid, antihypertensives, as needed analgesics trend bnp, elevated BNP 2605, [id number]->[id number]-> troponin normal chest x-ray chronic small left pleural effusion with underlying atelectasis resume home meds ECHO . NORMAL LEFT VENTRICULAR EJECTION FRACTION 55-60% 2. SEVERE DIASTOLIC DYSFUNCTION 3. BI-ATRIAL ENLARGEMENT 4. MODERATE TRICUSPID REGURGITATION 5. CALCIFIED AORTIC VALVE WIT MODERATE AORTIC STENOSIS 6. MODERATE PULMONARY HYPERTENSION WITH RIGHT VENTRICULAR SYSTOLIC PRESSURE OF 55-60 mmHg impaired mobility Bilateral lower extremity leg pain Bilateral lower extremity peripheral artery disease reports history of progressive peripheral vascular disease with nonoperative arterial occlusions per patient's report from cardiology. bilateral lower extremity Dopplers IMPRESSION: 1. Right lower extremity: Monophasic flow throughout the right lower extremity which could indicate a more proximal moderate or severe stenosis such as at the iliac vessels. 2. Left lower extremity: Biphasic flow in the left common femoral and superficial femoral arteries. Monophasic flow in the popliteal artery suggesting a moderate to high-grade stenosis. The posterior tibial artery is either occluded or has minimal flow. The dorsalis pedis artery is occluded. fall precuations, PT eval Plan to DC In pt rehab prior to dc Zfd-nzlntsy-eegqqszyr diabetes Sliding scale insulin, Accu-Cheks ACHS, Acute on chronic kidney injury CKD improving BUN 56 creatinine 2.32, estimated GFR 27,.->BUN 60, cr 2.25->BUN 53, Cr 20.6 eGFR 29 ->Cr 1.86-> bun 28/cr 2.06 trend kidney function, on Lasix for CHF nephrology following Microcytic anemia likely secondary to anemia of chronic disease stable microcytic anemia 11.5 34.5, ->10.7,37.9->11.5 trend HH Hypertension Resume appropriate home meds Polio; as a kid fall precuations Dementia Fall precautions, supportive care Disposition facility for rehab Full code DVT heparin Diet cardiac Discharge Plan: Assisted - Code Status/Comfort Care Code Status: Full Code Critical Care: No Discharge Plan: Assisted Plan to discharge in: Greater than 2 days - Code Status/Comfort Care Code Status Assessed: Yes Physician Review: Patient Assessed, Agree with Above Assessment and Plan Critical Care: No <Isauro Huffman - Last Filed: 11/07/23 16:31> - Plan Pt seen and examined. I agree with the note by the TOPOGRAPHICAL SURVEYOR. Continue current therapy. Will dc when medically stable. <Jona Nix - Last Filed: 11/07/23 21:48>
[2023-11-07] MEDS: ROSUVASTATIN 10 MG TAB PO SCH (18:00)
[2023-11-07] MEDS: COCONUT OIL 1000 MG PO SCH ×2 (18:00→21:00)
[2023-11-07] MEDS: GABAPENTIN 100 MG CAP PO SCH (18:00)
--- NOTE | 2023-11-08 00:15 | PN ---
Date of Progress Note: 11/07/2023 Chief Complaint: Acute on chronic kidney injury. Subjective: The patient has multiple medical problems. He cannot provide review of systems. The pa dillan has dementia, although he denies chest pain and palpitation today. He is undergoing physical t herapy. Physical Examination: Lungs: Clear to auscultation bilaterally. Heart: S1, S2. Abdomen: Soft. Extremities: No edema. Impression And Plan: 1.Chronic kidney disease. The patient developed prerenal azotemia. There is high BUN/creatinine ra ramonita. The patient will continue adequate hydration by mouth. He completed IV fluids. There is no ev idence of rhabdomyolysis, and urine will be checked for evidence of active urinary sediment. 2.Peripheral vascular disease with severe occlusive disease. Further recommendation from cardiologi st. The patient is at high risk for nephropathy due to contrast-induced nephropathy. 3.Anemia. Monitor CBC. EB/MODL Voice ID: [id number] Report ID: [id number]
[2023-11-08] MEDS: DORZOLAMIDE 2% OPTH SCH ×2 (05:31→12:03)
[2023-11-08] MEDS: OPTH OPTH SCH ×2 (05:31→12:03)
[2023-11-08] MEDS: EYE OPTH SCH (05:32)
[2023-11-08] MEDS: TIMOLOL MALEATE 0.5% OPTH SCH (05:32)
[2023-11-08 05:51] LABS: Potassium 3.6 mEq/L (3.5-5.1); Uric Acid 9.9 mg/dL (3.5-7.2)
[2023-11-08 07:23] LABS: Specific Gravity 1.017 (1.005-1.030); Urine Bacteria None Seen /HPF (<20); Urine Bilirubin NEGATIVE (Negative); Urine Blood Negative (Negative); Urine Clarity Clear (Clear); Urine Color Light-Yellow (Yellow); Urine Glucose NEGATIVE (Negative); Urine Mucus Slight /HPF (None Seen); Urine Protein NEGATIVE (Negative); Urine RBC None Seen /HPF (None Seen); Urine Urobilinogen Normal (Normal); Urine pH 5.5 (5.0-7.0)
[2023-11-08 07:31] LABS: UR PROTEIN 17.6 mg/dL (<11.9); Urine Protein/Creatinine Ratio 0.19 ratio (<0.15)
[2023-11-08] MEDS ORDERED: POTASSIUM CL SA 10 MEQ TAB PO ONE (09:00)
[2023-11-08] MEDS: METOPROLOL TAR 50 MG TAB PO SCH (09:44)
[2023-11-08] MEDS: ASCORBIC ACID 500 MG TABLET PO SCH (09:44)
[2023-11-08] MEDS: GALANTAMINE 4 MG TAB PO SCH (09:45)
[2023-11-08] MEDS: DOCUSATE NA 100 MG CAP PO SCH (09:45)
[2023-11-08] MEDS: HYDRALAZINE HCL 25 MG TABLET PO SCH (09:45)
[2023-11-08] MEDS: ASPIRIN EC 81 MG TAB PO SCH (09:45)
[2023-11-08] MEDS: ZINC SULFATE 220 MG CAP PO SCH (09:45)
[2023-11-08] MEDS: CLOPIDOGREL 75 MG TABLET PO SCH (09:45)
[2023-11-08] MEDS: MEMANTINE HCL 10 MG TABLET PO SCH (09:45)
[2023-11-08] MEDS: Multi-VIT(Centravite Senior) 1 TAB TAB PO SCH (09:45)
[2023-11-08] MEDS: OCUVITE (VIT A,C & E/LUTEIN/MINERAL) TABLET PO SCH (09:45)
[2023-11-08] MEDS: DOCOSAHEXANOIC AC/EPA 1000 MG PO SCH (09:45)
[2023-11-08] MEDS: PANTOPRAZOLE 40MG TABLET PO SCH (09:45)
[2023-11-08] MEDS: GLUCOSAM/CHONDROI 500mg-400mg PO SCH (09:46)
[2023-11-08] MEDS: FUROSEMIDE 40 MG/4 ML VIAL IV SCH (09:46)
[2023-11-08 12:51] VITALS: O2SAT 99
--- NOTE | 2023-11-08 14:02 | RAD REPORT ---
EXAM DESCRIPTION: RAD - Chest Single View - 11/08/2023 1:53 pm CLINICAL HISTORY: COPD Chest pain. COMPARISON: Chest Single View dated 11/01/2023; Chest Single View dated 09/25/2021; Chest Single View dated 09/18/2021; Chest Single View dated 09/16/2021 FINDINGS: Portable technique limits examination quality. Mild interstitial pulmonary edema is seen. Small left pleural effusion is present. The heart is mildl y enlarged in size. Sternotomy wires. IMPRESSION: Stable chest since 11/01/2023. Chronic small left pleural effusion.
[2023-11-08 14:27] VITALS: BP 149/71; TEMP 98
--- NOTE | 2023-11-08 14:38 | P.DS ---
Admission Date: 11/01/23 Discharge Date: 11/09/23 Reason for Admission: Shortness of breath Brief History of Present Illness: 83 year old male with past medical history of Atrial Fib; Diabetes -CKD NIDDM; Hypertension; Polio; as a kid; Dementia; Congestive heart presented to the emergency room with bilateral leg pain, reports history of progressive peripheral vascular disease with nonoperative arterial occlusions per patient's report from cardiology. Reports associated shortness of breath that is worse with exertion. He denies chest pain, fever, nausea vomiting diarrhea, failure. Plan to admit for acute on chronic heart failure, bilateral lower extremity edema PAD. Laboratory evaluation acute on chronic kidney injury BUN 56 creatinine 2.32, estimated GFR 27, elevated BNP 2605, troponin normal at 14.8, microcytic anemia 11.5 34.5 chest x-ray chronic small left pleural effusion with underlying atelectasis, bilateral lower extremity Dopplers IMPRESSION: 1. Right lower extremity: Monophasic flow throughout the right lower extremity which could indicate a more proximal moderate or severe stenosis such as at the iliac vessels. 2. Left lower extremity: Biphasic flow in the left common femoral and superficial femoral arteries. Monophasic flow in the popliteal artery s uggesting a moderate to high-grade stenosis. The posterior tibial artery is either occluded or has minimal flow. The dorsalis pedis artery is occluded. Hospital Course: Patient is an 83-year-old male with a past medical history significant for A- fib, DM 2, hypertension, dementia, CHF, non-operative arterial occlusions, PVD who presented with complaint of bilateral leg pain with associated signs and symptoms of shortness of breath and bilateral lower extremity edema. Patient was diagnosed with acute on chronic CHF exacerbation. Patient was placed on diuretics and property preservation specialist was consulted. Patient had issues with ambulation due to pain secondary to severe PVD. Patient was placed on pain medication regimen. Physical therapy was also consulted. [facility] Patients was consulted for management of GAURAV. Patient's symptoms improved over time. Physical therapy [facility] Case management was able to set up rehab placement. Patient was cleared by all consultants involved in his care. Patient was discharged to rehab in the fifth floor for further physical therapy. <Isauro Huffman E - Last Filed: 11/09/23 20:26> Admission Date: 11/01/23 Discharge Date: 11/09/23 Hospital Course: Pt seen and examined. I agree with the note by the SUPERVISORY AIDE. ok to discharge pt. <Jona Nix Eloina - Last Filed: 11/09/23 22:39> Disposition: TRANSFER TO INPATIENT REHAB Discharge Condition: GOOD Vital Signs/Physical Exam: Temp Pulse Resp BP Pulse Ox 98.0 F 95 H 16 149/71 H 99 11/08/23 12:00 11/08/23 12:00 11/08/23 12:00 11/08/23 12:00 11/08/23 12:00 General: Alert, Oriented x3, Cooperative HEENT: Atraumatic, PERRLA, EOMI Neck: Supple, JVD not distended Respiratory: Clear to auscultation bilaterally, Normal air movement Cardiovascular: No edema, Regular rate/rhythm, Normal S1 S2 Capillary refill: <2 Seconds Gastrointestinal: Normal bowel sounds, No tenderness Musculoskeletal: No tenderness Integumentary: No rashes, No significant lesion Neurological: Normal speech, Normal tone, Normal affect Lymphatics: No axilla or inguinal lymphadenopathy Laboratory Data at Discharge: WBC 10.80 thou/uL (4.3-10.9) 11/05/23 06:21 Hgb 11.5 g/dL (13.6-17.9) L 11/05/23 06:21 Hct 34.6 % (39.6-49.0) L 11/05/23 06:21 Plt Count 263 thou/uL (152-406) 11/05/23 06:21 PT 14.4 SECONDS (9.5-12.5) H 11/01/23 08:30 INR 1.32 11/01/23 08:30 Sodium Cancelled 11/08/23 Unknown Potassium Cancelled 11/08/23 Unknown BUN Cancelled 11/08/23 Unknown Creatinine Cancelled 11/08/23 Unknown Glucose Cancelled 11/08/23 Unknown Uric Acid 9.9 mg/dL (3.5-7.2) H 11/08/23 05:01 Phosphorus 3.6 mg/dL (2.5-4.9) 11/07/23 04:53 Magnesium 2.6 mg/dL (1.6-2.4) H 11/05/23 06:21 Total Bilirubin 0.7 mg/dL (0.2-1.0) 11/01/23 08:30 AST 12 U/L (15-37) L 11/01/23 08:30 ALT 20 U/L (16-61) 11/01/23 08:30 Alkaline Phosphatase 166 U/L (45-117) H 11/01/23 08:30 <Isauro Huffman - Last Filed: 11/09/23 20:26> Vital Signs/Physical Exam: Temp Pulse Resp BP Pulse Ox 98.0 F 95 H 16 149/71 H 99 11/08/23 12:00 11/08/23 12:00 11/08/23 12:00 11/08/23 12:00 11/08/23 12:00 Laboratory Data at Discharge: WBC 10.80 thou/uL (4.3-10.9) 11/05/23 06:21 Hgb 11.5 g/dL (13.6-17.9) L 11/05/23 06:21 Hct 34.6 % (39.6-49.0) L 11/05/23 06:21 Plt Count 263 thou/uL (152-406) 11/05/23 06:21 PT 14.4 SECONDS (9.5-12.5) H 11/01/23 08:30 INR 1.32 11/01/23 08:30 Sodium Cancelled 11/08/23 Unknown Potassium Cancelled 11/08/23 Unknown BUN Cancelled 11/08/23 Unknown Creatinine Cancelled 11/08/23 Unknown Glucose Cancelled 11/08/23 Unknown Uric Acid 9.9 mg/dL (3.5-7.2) H 11/08/23 05:01 Phosphorus 3.6 mg/dL (2.5-4.9) 11/07/23 04:53 Magnesium 2.6 mg/dL (1.6-2.4) H 11/05/23 06:21 Total Bilirubin 0.7 mg/dL (0.2-1.0) 11/01/23 08:30 AST 12 U/L (15-37) L 11/01/23 08:30 ALT 20 U/L (16-61) 11/01/23 08:30 Alkaline Phosphatase 166 U/L (45-117) H 11/01/23 08:30 <Jona Nix - Last Filed: 11/09/23 22:39> Diet: AHA Activity: Weight bearing as tolerated Physician Review: Patient Assessed, Agree with Above Assessment and Plan <MushtaqrichardmonaeColin gallegosrosyandrea Mona - Last Filed: 11/09/23 20:26> <Jona Nix - Last Filed: 11/09/23 22:39> Home Medications: Acetaminophen [Tylenol] 2 tab PO BID 09/13/21 Ascorbic Acid [Vitamin C with Mackenzie Hips] 1 tab PO DAILY 09/13/21 Clopidogrel Bisulfate [Plavix*] 75 mg PO DAILY 09/13/21 Dorzolamide HCl [Trusopt] 1 drop EACH EYE TID 09/13/21 Galantamine HBr [Galantamine ER] 4 mg PO 0900,1800 09/13/21 Memantine HCl 1 tab PO 0900,1800 09/13/21 Metoprolol Tartrate 100 mg PO 0900,1800 09/13/21 Multivit-Minerals/FA/Lycopene [One Daily Tablet] 1 tab PO DAILY 09/13/21 Pantoprazole [Protonix Tab*] 1 tab PO DAILY 09/13/21 Timolol Maleate/Pf [Timolol Maleate 0.5% Eye Drop] 1 drop EACH EYE BID 09/13/21 Vit A,C & E/Lutein/Minerals [Ocuvite Tablet] 1 tab PO DAILY 09/13/21 Zinc 1 tab PO DAILY 09/13/21 Docusate [Colace Cap*] 100 mg PO BID cap 09/19/21 Aspirin [Adult Low Dose Aspirin EC] 81 mg PO DAILY 11/01/23 Coconut Oil 1,000 mg PO 1800 11/01/23 Gabapentin [Neurontin*] 100 mg PO 1800 11/01/23 Glucosamine/D3/Boswellia Kkii [Osteo Bi-Flex Tablet] 1 each PO 0900,1800 11/01/23 Codeine/APAP [Tylenol #3*] 1 tab PO Q6H PRN tab 11/08/23 Hydralazine [Apresoline*] 25 mg PO BID tab 11/08/23 Followup: Jeb Jones MD [Primary Care Provider] - 1-2 Weeks (call to schedule an appointment)
--- NOTE | 2023-11-08 16:56 | PN ---
Date of Progress Note: 11/08/2023 Subjective: The patient was admitted with the leg pain secondary to ischemia. The patient had acute kidney injury. Objective: Vital Signs: Blood pressure 156/66, pulse of 84. Chest: Clear to auscultation. Heart: S1, S2. Regular. Abdomen: Soft, nontender. Extremity: No edema. Laboratory Data: Hemoglobin 11.5, sodium 142, potassium 3.6, bicarb 27, BUN 67, creatinine jumped to 2.5, calcium 9.2, uric acid 9.9. Current Medications: The patient on, it includes aspirin, Plavix, hydralazine, atorvastatin, Tylenol , Namenda, Lasix 40 b.i.d. Assessment And Plan: 1.Acute kidney injury. Kidney function bounced back. The patient look to me slightly on the dry si de. I am going to go ahead and repeat the chest x-ray. We will hold the Lasix for the time being an d we will follow up the patient. 2.Hypertension, controlled, optimal. Continue current treatment. 3.Peripheral arterial disease. Followup with Cardiology and Primary. 4.Hypokalemia. I will supplement cautiously given the current kidney function. SABIHA/REBEKAH Voice ID: [id number] Report ID: [id number]
== END 2023-11-08 15:41 | DRG 291 ==
LOC: ER 08:12 → ERHOLD 11:40 → 4TH 19:32
PROVIDERS: ADMIT Hospitalist; ATTEND Hospitalist
DX: I13.0 Hypertensive heart and chronic kidney disease with heart failure and stage 1 through stage 4 chronic kidney disease, or unspecified chronic kidney disease (principal); I50.33 Acute on chronic diastolic (congestive) heart failure; N17.9 Acute kidney failure, unspecified; N18.30 Chronic kidney disease, stage 3 unspecified; E11.22 Type 2 diabetes mellitus with diabetic chronic kidney disease; E11.51 Type 2 diabetes mellitus with diabetic peripheral angiopathy without gangrene; D63.1 Anemia in chronic kidney disease; D63.8 Anemia in other chronic diseases classified elsewhere; D50.9 Iron deficiency anemia, unspecified; E78.00 Pure hypercholesterolemia, unspecified; A80.9 Acute poliomyelitis, unspecified; E87.6 Hypokalemia; I48.91 Unspecified atrial fibrillation; K21.9 Gastro-esophageal reflux disease without esophagitis; F03.90 Unspecified dementia, unspecified severity, without behavioral disturbance, psychotic disturbance, mood disturbance, and anxiety; I25.10 Atherosclerotic heart disease of native coronary artery without angina pectoris; Z88.0 Allergy status to penicillin; Z60.2 Problems related to living alone; Z95.1 Presence of aortocoronary bypass graft; Z88.8 Allergy status to other drugs, medicaments and biological substances; Z95.2 Presence of prosthetic heart valve; Z79.82 Long term (current) use of aspirin; Z79.02 Long term (current) use of antithrombotics/antiplatelets; Z79.899 Other long term (current) drug therapy; Z28.310 Unvaccinated for COVID-19
CPT/HCPCS: 36415; 71045; 76770; 80048; 80069; 80076; 81001; 82550; 82570; 83735; 83880; 84100; 84132; 84156; 84484; 84550; 85025; 85610; 93005; 93306; 93925; 94760; 96374; 97110; 97116; 97161; 97165; 97530; 99285; J1644; J1940

== ENCOUNTER 2023-11-08 10:22 | Inpatient (IN) | payer OTHER ==
[2023-11-08 15:43] VITALS: BMI 21.6
[2023-11-08] MEDS ORDERED: SENOSIDES 8.6 MG TAB PO PRN (16:06)
[2023-11-08] MEDS ORDERED: ACETAMINOPHEN 325 MG TABLET PO PRN (16:07)
[2023-11-08] MEDS ORDERED: CODEINE 30MG/APAP 300MG TAB PO PRN (16:09)
[2023-11-08] MEDS ORDERED: ONDANSETRON 4 MG (ODT) TAB PO PRN (16:11)
[2023-11-08] MEDS: GALANTAMINE 4 MG TAB PO SCH (17:38)
[2023-11-08] MEDS ORDERED: DORZOLAMIDE 2% OPTH SCH (18:00)
[2023-11-08] MEDS: TIMOLOL OPTH SCH (18:17)
[2023-11-08] MEDS: DORZOLAMIDE 2% OPTH SCH (18:18)
[2023-11-08] MEDS: OPTHALMIC OPTH SCH (18:18)
[2023-11-08] MEDS: DOCUSATE NA 100 MG CAP PO SCH (18:19)
[2023-11-08] MEDS: DOCOSAHEXANOIC AC/EPA 1000 MG PO SCH (18:19)
[2023-11-08] MEDS: MEMANTINE HCL 10 MG TABLET PO SCH (18:19)
[2023-11-08] MEDS: GABAPENTIN 100 MG CAP PO SCH (18:22)
[2023-11-08] MEDS ORDERED: GABAPENTIN 100 MG CAP ONE (18:22)
[2023-11-08] MEDS: HYDRALAZINE HCL 25 MG TABLET PO SCH (18:23)
[2023-11-08] MEDS: GLUCOSAM/CHONDROI 500mg-400mg PO SCH (18:23)
[2023-11-08] MEDS: METOPROLOL TAR 50 MG TAB PO SCH (18:42)
[2023-11-08] MEDS: MELATONIN 3 MG TABLET PO PRN (20:29)
[2023-11-08 20:40] LABS: Specific Gravity 1.016 (1.005-1.030); Urine Bacteria None Seen /HPF (<20); Urine Bilirubin NEGATIVE (Negative); Urine Blood Negative (Negative); Urine Clarity Clear (Clear); Urine Color Light-Yellow (Yellow); Urine Glucose NEGATIVE (Negative); Urine Protein NEGATIVE (Negative); Urine RBC <5 /HPF (None Seen); Urine Urobilinogen 1+ (Normal); Urine pH 6.5 (5.0-7.0)
[2023-11-09 05:33] LABS: Absolute Lymphocytes (CBC) 1.5 K/uL (0.7-4.9); Hematocrit 34.7 % (39.6-49.0); Lymphocytes % 14.3 % (15.3-44.8); MCV 93.5 fL (80-100); MPV 7.2 fL (7.6-11.3); Platelets 309 thou/uL (152-406); RBC Red Blood Cell Count 3.71 M/uL (4.33-5.43)
[2023-11-09 05:50] LABS: Albumin 2.8 g/dL (3.4-5.0); Magnesium 2.5 mg/dL (1.6-2.4); Potassium 3.7 mEq/L (3.5-5.1); Prealbumin 18.7 mg/dL (20-40)
[2023-11-09] MEDS: PANTOPRAZOLE 40MG TABLET PO SCH (07:31)
[2023-11-09] MEDS: CLOPIDOGREL 75 MG TABLET PO SCH (08:52)
[2023-11-09] MEDS: ASPIRIN EC 81 MG TAB PO SCH (08:52)
[2023-11-09] MEDS: Multi-VIT(Centravite Senior) 1 TAB TAB PO SCH (08:53)
[2023-11-09] MEDS: ZINC SULFATE 220 MG CAP PO SCH (08:56)
[2023-11-09] MEDS: ASCORBIC ACID 500 MG TABLET PO SCH (08:56)
[2023-11-09] MEDS: OCUVITE (VIT A,C & E/LUTEIN/MINERAL) TABLET PO SCH (08:56)
[2023-11-09] MEDS: POTASSIUM 25 MEQ EFFERV TAB PO ONE (12:16)
--- NOTE | 2023-11-09 12:39 | CON ---
Date of Consultation: 11/09/2023 Reason For Consultation: Elevated BUN, creatinine, fluid management. History Of Present Illness: This is a pleasant 83-year-old gentleman, well known to me from the office with significant past medical history of hypertension, GERD, PAD, CAD status post CABG back in 2016 with aortic valve replacement in 2017, hyperlipidemia, chronic kidney disease stage 3, small size kidney 9.1/9.9, proteinuric, non-nephrotic, secondary to hypertension nephrosclerosis, renal vascular disease, baseline creatinine in the 2 with GFR of 32. The patient came to the hospital with leg pain, PAD. The patient seen by Cardiology. No intervention. The patient was transferred to rehab. The patient had acute kidney injury. Upon arrival to the hospital, creatinine up to 2.5, back currently down to 1.7, close to his baseline. Past Medical History: Includes: 1. Hypertension. 2. Hyperlipidemia. 3. PAD. 4. CAD status post CABG, status post aortic valve replacement. 5. Hyperlipidemia. 6. GERD. Allergies: TO PENICILLIN AND XARELTO. Home Medications: Include Tylenol, vitamin C, atorvastatin, cholecalciferol, Plavix, ferrous sulfate, Lasix, losartan, Namenda, metoprolol, and multivitamin. Family History: Positive for CAD, hypertension. Social History: Lives with family. Denied smoking. Denied drinking. Denied drug abuse. Review of Systems: Head and Neck: No red eye. No ear pain. GI: No nausea, no vomiting. : No polyuria, no dysuria, no hematuria. Sewage Screen Operator: Not applicable. Respiratory: No shortness of breath. Cardiovascular: No chest pain. Endocrine: No polydipsia. Skin: No rash. Neurologic: Alert. No focality. Physical Examination: General: When I saw the patient, the patient lying in bed, comfortable, on room air. Vital Signs: Blood pressure 145/72, pulse of 83, afebrile. Chest: Clear to auscultation. Heart: S1, S2. Systolic murmur. Abdomen: Soft, nontender. Extremities: No edema. Neurologic: Alert. No focality. Labs: Sodium 144, potassium 3.7, bicarb 28, BUN 61, creatinine 1.7. Calcium 10, phosphorus 2.5. Hemoglobin 11.6, WBC 10.3. P/C ratio 0.1. Current Medications: The patient on include hydralazine, metoprolol, gabapentin, Namenda, zinc sulfate, docusate. Assessment And Plan: 1. Acute kidney injury secondary to prerenal. Yesterday received fluid resuscitation. Currently normal volume. Keep holding diuresis. 2. Hypertension, controlled, optimal, continue current treatment. 3. Chronic kidney disease status post acute kidney injury as above. 4. Peripheral vascular disease. Continue supportive care. Follow up with Cardiology. 5. Hypokalemia, status post supplement, we will supplement as needed. 6. Deconditioning, continue PT/OT. Time spent examining the patient [id number] reviewing that the lab and the radiology placing orders or discussing the case with the patient discussing the case with the [employer] team member including hospitalist and nursing staff more than 75 minutes LINO Voice ID: [id number] Report ID: [id number] RENETTA
[2023-11-09] MEDS: LACTOBACILLUS/ACIDOPHILUS TAB PO SCH (17:31)
--- NOTE | 2023-11-09 20:17 | RAD REPORT ---
EXAM DESCRIPTION: RAD - Abdomen 1 View (KUB) - 11/09/2023 7:35 pm CLINICAL HISTORY: Abdomen pain FINDINGS: The bowel gas pattern is unremarkable. Large amount stool is present throughout the colon Vascular calcifications
[2023-11-09] MEDS ORDERED: BISACODYL E.C. 5 MG TAB PO PRN (22:24)
--- NOTE | 2023-11-09 22:45 | HP ---
Date of Admission: 11/08/2023 Time Of Service: 1:00 p.m. Chief Complaint: "I am weak and need help." History Of Present Illness: Mr. Lubin is an 83-year-old patient who was seen in the emergency room w ith bilateral lower extremity pain and weakness and the history of significant progressive peripheral arterial disease that has been nonoperative. He had worsening shortness of breath with exertion, wa s found to have acute on chronic kidney failure, elevated creatinine of 2.32, BUN 56, and BNP of 2605 . Chest x-ray showed pleural effusion and underlying atelectasis and Dopplers of the lower extremity showed monophasic flow throughout the right lower extremity, which could indicate proximal moderate or severe stenosis at the iliac vessels. Left lower extremity biphasic flow and the left common femo ral and superficial femoral arteries and monophasic flow in the popliteal artery assist in moderate t o high-grade stenosis. His posterior tibial artery was found to be either occluded or had minimal fl ow. Dorsalis pedis artery also was found to be occluded. He was admitted with the lower extremity e isabela, peripheral arterial disease, and chronic failure with acute on chronic renal failure. He is ma naged by cardiology service, renal service, and had a telemetry. He received diuretics, statins, and hypertensive medications. He was known to have a history of polio as well and dementia. As in his hospitalization, he had worsening hemoglobin and hematocrit, likely secondary to his renal failure. He had malnutrition with low albumin and decreased creatine kinase. Required 1 L oxygen and BiPAP wi th more elevated blood pressures for perfusion of the lower extremities. His evaluation by physical, occupational, and speech therapy determined he was functioning much below his baseline level and wou ld require aggressive physical, occupational, and if need be, speech therapy to help him return towar ds his prior level of functioning and rehabilitation on an inpatient basis is recommended. Given his complex history and medical condition. Medical And Surgical History: Hypertension, dyslipidemia, vascular dementia, coronary artery bypass grafting, polio since childhood, atrial fibrillation, a 3 vessel cardiac bypass, aortic valve replace ment, coronary artery disease. Allergies: APIXABAN, RIVAROXABAN, ATORVASTATIN, EZETIMIBE, PENICILLINS, AND SIMVASTATIN. Medications: Tylenol 650 every 4 hours as needed, Tylenol with Codeine 1 every 6 hours as needed, vi tamin C 1000 mg daily, aspirin 81 mg daily, Plavix 75 mg daily, Colace 100 mg twice daily, [place]-3 Fi sh Oil 2000 mg twice daily, gabapentin 100 mg at bedtime, galantamine 4 mg twice daily, glucosamine/c hondroitin 500/400 one twice daily, Apresoline 25 mg twice daily, Lactinex 1 tablet daily, melatonin 3 mg at bedtime as needed, Namenda mg twice daily, Lopressor 100 mg twice daily, Centrum S ilver daily, Zofran 4 mg 6 hours as needed, Protonix 40 mg daily, Senokot S 8.6 mg daily, zinc sulfat e 220 mg daily. Family History: Noncontributory. X-rays And Imaging: Chest x-ray on 11/01/2023 showed small left pleural effusion with underlying ate lectasis and Doppler study as discussed above. A foot x-ray on 11/02/2023 showed no acute fracture, dislocation, or aggressive marrow lesions. There is a tiny calcaneal spur and moderate vascular arth rosclerosis. Laboratory Studies: White blood cell count 10.3, hemoglobin 11.6, platelets 309. Sodium 144, potass ium 3.7, chloride 111, carbon dioxide 28, BUN 61, creatinine 1.79, glucose 116. Hemoglobin A1c 5.7. Calcium 10. Magnesium 2.5. Beta natriuretic peptide 1927. Albumin 2.8, prealbumin 18.7. Urinalys is is remarkable for 1+ urobilinogen, otherwise negative. COVID testing on the is negative. Review of Systems: Mr. Lubin is resting comfortably in bed. He did have a good session of therapy. He is currently fol lowed by the renal service. Physical Examination: HEENT: He is normocephalic, atraumatic. Sclerae anicteric. Oropharynx is moist. Neck: Supple. Extremities: No significant clubbing, cyanosis, or edema. Able to move the legs equally well. Does have some diffuse weakness more proximally than distally, but otherwise. Chest: Clear. Heart: Regular. Current Level Of Functioning: Setup assistance needed for eating, oral hygiene. Moderate assistance for toilet hygiene. Contact guard assistance for bathing. Contact guard for upper body dressing. Moderate assistance for lower body dressing and donning and doffing footwear. Moderate assistance fo r rolling [id number], [id number] and for transfer from bed, to chair, to toilet, and to stand. Ambulation: He has not ambulated and not yet on stairs. Rehabilitation And Medical Assessment And Plan: Mr. Lubin is an 83-year-old patient admitted to the rehabilitation unit with impairment category 06, neurological condition. His impairment group code i s 03.8, neuromuscular disorder. 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 Additional comorbidities: Atrial fibrillation, anemia, chronic kidney disease, decreased mobility, decreased physical function ing, diastolic congestive heart failure, diabetes mellitus type 2, hypertension, peripheral artery di sease, pleural effusion, cognitive impairment, and history of polio, atelectasis, elevated BNP. Plan: 1.He will have physical, occupational, and speech therapy for 3.5 hours, 5/7 days. 2.He has multiple comorbidities, which were listed above and will be addressed by continuing medicat ions including aspirin, Plavix, folic acid, Colace, Fish Oil, gabapentin, Apresoline, Namenda, Lopres sor, Ocuvite, Centrum Silver. Impact Of Comorbidities: Mr. Lubin as noted has multiple comorbid conditions, which include signific antly peripheral arterial disease, which may impact his ability to ambulate. He may have significant claudication with ambulation. He will continue to have anticoagulation provided may have sequential compressive devices as needed at night. He is on aspirin and Plavix, which is dual antiplatelet and will continue. In addition, the renal service may be following the patient. He does have the acute on chronic renal insufficiency with elevated creatinine and BUN and they are monitoring and followin g him as appropriate. At this stage, he does not require dialysis. Rehab Specific Plan: Mr. Lubin to have physical, occupational, and speech therapy for 3.5 hours, 5/7 days to improve his ability to transfer from bed to chair, to toilet, to shower and to ambulate 250 feet with modified independence up and down 10 steps with modified independence. Perform cognitive f unctioning with modified independence. He met all his medications appropriately and all his followup s as appropriate. Mr. Lubin has a good understanding of the process of admission to the inpatient rehabilitation facili and how he may benefit from physical, occupational, and speech therapy. If need be, along with e renal service, the pulmonary service, hospitalist service may be consulted and Orthopedic depending on if there are any issues with the joints or bones. Given his complex medical condition and risk o f further complications, rehabilitation cannot be safely or effectively performed at a lower level fa cility such as penitentiary. Barriers To Discharge: Currently is peripheral arterial disease may potentially be a barrier. He ortiz s significant claudication and is unable to ambulate without significant assistance. However, that m ay be partly medicated by maintaining mildly elevated blood pressures until he is able to receive int ra-arterial treatment if he is not a candidate for surgical treatment for his peripheral arterial dis ease. Length Of Stay: 12 days. Disposition: Home with home health and family. Prognosis: Good. Specific Goals Of Rehabilitation: 1.Become independent with upper and lower body dressing, toileting, showering, donning and doffing f ootwear. 2.Independently ambulate 250 feet with rolling walker. 3.Independently propel a wheelchair 250 feet. 4.Independently go up with 10 steps with bilateral handrails. 5.Independently perform all cognitive functioning including medication management and physician foll owup. 6.The goals were discussed with Mr. Lubin and he is in agreement. By signing this document, I acknowledge I performed a full physical examination on Mr. Lubin no later than 24 hours after his admission to the inpatient rehabilitation facility and determined that he is able to tolerate the above course of treatment at an intensive level for reasonable period of time. A detailed individualized plan of care for him will be completed by hospital day 4 based on the preadmission screen, history and physical, and t herapy evaluations. CAROLEE/REBEKAH Voice ID: [id number]
[2023-11-10] MEDS: BISACODYL 10 MG RECTAL SUPP PR PRN (04:50)
[2023-11-10] MEDS ORDERED: LACTOBACILLUS/ACIDOPHILUS TAB PO SCH (08:00)
[2023-11-10] MEDS: DOCUSATE NA/SENNA CONC 1 TAB PO SCH (08:49)
--- NOTE | 2023-11-10 13:36 | P.RH.PN ---
Estimated Length of Stay: 11 Expected Discharge Date: 11/18/23 Discharge Disposition Plan: Home Family Support: Yes Senior Care Goal: Mobility, Transfers, Self Care Vital Signs: Last Vital Signs Temp 97.0 F 11/10/23 08:00 Pulse 99 H 11/10/23 08:50 Resp 18 11/10/23 08:00 BP 142/85 H 11/10/23 08:50 Pulse Ox 98 11/10/23 08:00 Laboratory: Laboratory Last Values WBC 10.30 thou/uL (4.3-10.9) 11/09/23 04:45 RBC 3.71 M/uL (4.33-5.43) L 11/09/23 04:45 Hgb 11.6 g/dL (13.6-17.9) L 11/09/23 04:45 Hct 34.7 % (39.6-49.0) L 11/09/23 04:45 MCV 93.5 fL (80-100) 11/09/23 04:45 MCH 31.3 pg (27.0-35.0) 11/09/23 04:45 MCHC 33.5 g/dL (32.0-36.0) 11/09/23 04:45 RDW 14.3 % (12.1-15.2) 11/09/23 04:45 Plt Count 309 thou/uL (152-406) 11/09/23 04:45 MPV 7.2 fL (7.6-11.3) L 11/09/23 04:45 Neutrophils % 66.5 % (41.7-73.7) 11/09/23 04:45 Lymphocytes % 14.3 % (15.3-44.8) L 11/09/23 04:45 Monocytes % 11.4 % (3.3-12.3) 11/09/23 04:45 Eosinophils % 7.2 % (0-4.4) H 11/09/23 04:45 Basophils % 0.6 % (0-1.3) 11/09/23 04:45 Absolute Neutrophils 6.8 K/uL (1.8-8.0) 11/09/23 04:45 Absolute Lymphocytes 1.5 K/uL (0.7-4.9) 11/09/23 04:45 Absolute Monocytes 1.2 K/uL (0.1-1.3) 11/09/23 04:45 Absolute Eosinophils 0.7 K/uL (0-0.5) H 11/09/23 04:45 Absolute Basophils 0.1 K/uL (0-0.5) 11/09/23 04:45 Sodium 144 mEq/L (136-145) 11/09/23 04:45 Potassium 3.7 mEq/L (3.5-5.1) 11/09/23 04:45 Chloride 111 mEq/L (98-107) H 11/09/23 04:45 Carbon Dioxide 28 mEq/L (21-32) 11/09/23 04:45 Anion Gap 8.7 mEq/L (5.0-15.0) 11/09/23 04:45 BUN 61 mg/dL (7-18) H 11/09/23 04:45 Creatinine 1.79 mg/dL (0.70-1.30) H 11/09/23 04:45 Est GFR (CKD-EPI) 37 ml/min (=/>90) L 11/09/23 04:45 Glucose 116 mg/dL (74-106) H 11/09/23 04:45 Hemoglobin A1c 5.7 % (4.2-6.3) 11/09/23 04:45 Calcium 10.0 mg/dL (8.5-10.1) D 11/09/23 04:45 Magnesium 2.5 mg/dL (1.6-2.4) H 11/09/23 04:45 NT-Pro-B Natriuret Pep 1927 pg/mL (<450) H 11/09/23 04:45 Albumin 2.8 g/dL (3.4-5.0) L 11/09/23 04:45 Prealbumin 18.7 mg/dL (20-40) L 11/09/23 04:45 Urine Color Light-yellow (Yellow) 11/08/23 19:50 Urine Clarity Clear (Clear) 11/08/23 19:50 Urine pH 6.5 (5.0-7.0) 11/08/23 19:50 Ur Specific [place] 1.016 (1.005-1.030) 11/08/23 19:50 Glucose (UA)(Auto) Negative (Negative) 11/08/23 19:50 Urine Ketones Negative (Negative) 11/08/23 19:50 Urine Blood Negative (Negative) 11/08/23 19:50 Urine Nitrite Negative (Negative) 11/08/23 19:50 Urine Bilirubin Negative (Negative) 11/08/23 19:50 Urine Urobilinogen 1+ (Normal) H 11/08/23 19:50 Ur Leukocyte Esterase Negative [place]/uL (Negative) 11/08/23 19:50 Urine RBC <5 /HPF (None Seen) 11/08/23 19:50 Urine WBC None seen /HPF (<5) 11/08/23 19:50 Ur Squamous Epith Cells <5 /HPF (None Seen) 11/08/23 19:50 Urine Bacteria None seen /HPF (<20) 11/08/23 19:50 Urine Culture Reflexed Not needed 11/08/23 19:50 Urine Total Protein Negative (Negative) 11/08/23 19:50 SARS-CoV-2 Rap RNA(RT-PCR) Negative (NEGATIVE) 11/08/23 17:30 Weight: 125 lb 12.8 oz Wound Present: No Negative Pressure Wound Therapy Present: No Physician Update: Labs reviewed and are stable. Mild SOB will start incentive spirometry. More hallucination and confusing the TV with reality. SLUMS 16 with difficulty with short term memory. RW 250' with min assist. WC 125' x 2 with min assistance. Confusion with motor planning CGA with transfers to toilet and wheelchair. Large amount of stool responded to suppository this morning. Summary: Patient's care plan and shelter goals have been reviewed and revised as necessary. Please see the Rehabilitation Signature page for all necessary sig natures.
[2023-11-10] MEDS: GABAPENTIN 100 MG CAP PO SCH (18:44)
--- NOTE | 2023-11-10 21:39 | RAD REPORT ---
EXAM DESCRIPTION: RADChest Single View11/10/2023 7:29 pm CLINICAL HISTORY: hx chf COMPARISON: Abdomen 1 View (KUB) dated 11/09/2023; Chest Single View dated 11/08/2023; Chest Single Vi ew dated 11/01/2023; Chest Single View dated 09/25/2021 TECHNIQUE: Portable AP view of the chest. FINDINGS: Improving aeration in the left lung base, likely with improving small left effusion. Mild central interstitial prominence is otherwise stable. No pneumothorax or effusion. The cardiomediasti nal contours are unchanged with sequelae of CABG. IMPRESSION: Improving left layering effusion and underlying airspace opacification. Other stable fin dings including suggestion of mild central congestion.
[2023-11-11] MEDS: MAGNESIUM OXIDE 400 MG TAB PO SCH (07:18)
[2023-11-11] MEDS: LIDOCAINE 4% PATCH TOP SCH (07:20)
--- NOTE | 2023-11-11 15:15 | P.PN ---
Subjective Date of Service: 11/11/23 Subjective: Other (no urinary complaints.) Physical Examination - Vital Signs Temperature: 96.9 F Blood Pressure: 141/67 Pulse: 67 Respirations: 14 Pulse Ox (%): 98 - Physical Exam General: Other (chronically ill-appearing) HEENT: Atraumatic, Normocephalic Neck: Supple, JVD not distended Respiratory: Other (symmetric chest expansion) Cardiovascular: No rubs, No murmurs Gastrointestinal: Soft and benign, No guarding Musculoskeletal: No clubbing Integumentary: No warmth Neurological: Normal speech, Normal tone Urinary: Other (no bladder distention) External genitalia: Deferred Rectal: Deferred - Studies Laboratory Data (last 24 hrs) 11/11/23 07:32 Uric Acid 7.3 H Microbiology Data (last 24 hrs): 11/08/23 19:50 Clean Catch Urine [place] Count - Final <10,000 CFU/ML. 11/08/23 19:50 Clean Catch Urine - Final MIXED HOMER. Assessment And Plan - Plan 1. Acute kidney injury secondary to prerenal state. SCr improved to 1.8. Encourage liberal by mouth fluid intake at least 2 L per day. 2. Hypertension. Continue current medication regimen. 3. Chronic kidney disease. Monitor renal panel. 4. Peripheral vascular disease. Continue supportive care. Follow up with Cardiology. 5. Hypokalemia, status post supplement, we will supplement as needed. 6. Deconditioning, continue PT/OT. 7. Dementia. Supportive care.
--- NOTE | 2023-11-12 10:25 | P.PN ---
Date of Service: 11/12/23 Subjective: Mr. Lubin is resting; no new c/o; patient is ambulating without difficulty. CHF is stable; and strength has improved. Physical Examination: Vitals: reviewed HEENT: WNL Neck: Supple. Extremities: No significant clubbing, cyanosis, or edema. Able to move the legs equally well. Does have some diffuse weakness more proximally than distally, but otherwise. Chest: Clear. Heart: Regular. Current Level Of Functioning: Setup assistance needed for eating, oral hygiene. Moderate assistance for toilet hygiene. Contact guard assistance for bathing. Contact guard for upper body dressing. Moderate assistance for lower body dressing and donning and doffing footwear. Moderate assistance for rolling [id number], [id number] and for transfer from bed, to chair, to toilet, and to stand. Ambulation: He has not ambulated and not yet on stairs. Rehabilitation And Medical Assessment And Plan: Mr. Lubin is an 83-year-old patient admitted to the rehabilitation unit with impairment category 06, neurological condition. His impairment group code is 03.8, neuromuscular disorder. 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 Additional comorbidities: Atrial fibrillation, anemia, chronic kidney disease, decreased mobility, decreased physical functioning, diastolic congestive heart failure, diabetes mellitus type 2, hypertension, peripheral artery disease, pleural effusion, cognitive impairment, and history of polio, atelectasis, elevated BNP. Plan: 1. He will have physical, occupational, and speech therapy for 3.5 hours, 5/7 days. 2. He has multiple comorbidities, which were listed above and will be addressed by continuing medications including aspirin, Plavix, folic acid, Colace, Fish Oil, gabapentin, Apresoline, Namenda, Lopressor, Ocuvite, Centrum Silver. Impact Of Comorbidities: Mr. Lubin as noted has multiple comorbid conditions, which include significantly peripheral arterial disease, which may impact his ability to ambulate. He may have significant claudication with ambulation. He will continue to have anticoagulation provided may have sequential compressive devices as needed at night. He is on aspirin and Plavix, which is dual antiplatelet and will continue. In addition, the renal service may be following the patient. He does have the acute on chronic renal insufficiency with elevated creatinine and BUN and they are monitoring and following him as appropriate. At this stage, he does not require dialysis. Rehab Specific Plan: Mr. Lubin to have physical, occupational, and speech therapy for 3.5 hours, 5/7 days to improve his ability to transfer from bed to chair, to toilet, to shower and to ambulate 250 feet with modified independence up and down 10 steps with modified independence. Perform cognitive functioning with modified independence. He met all his medications appropriately and all his followups as appropriate. Barriers To Discharge: Currently is peripheral arterial disease may potentially be a barrier. He has significant claudication and is unable to ambulate without significant assistance. However, that may be partly medicated by maintaining mildly elevated blood pressures until he is able to receive intra-arterial treatment if he is not a candidate for surgical treatment for his peripheral arterial disease. Length Of Stay: 12 days. Disposition: Home with home health and family. Prognosis: Good. Specific Goals Of Rehabilitation: 1. Become independent with upper and lower body dressing, toileting, showering, donning and doffing footwear. 2. Independently ambulate 250 feet with rolling walker. 3. Independently propel a wheelchair 250 feet. 4. Independently go up with 10 steps with bilateral handrails. 5. Independently perform all cognitive functioning including medication management and physician followup. 6. The goals were discussed with Mr. Lubin and he is in agreement.
[2023-11-13] MEDS ORDERED: CARBOXYMETHYLCELLULOSE SODIUM 0.5% 15 ML OPTH PRN (13:56)
--- NOTE | 2023-11-13 14:24 | PN ---
Date of Progress Note: 11/13/2023 Subjective: The patient was admitted to the hospital with acute kidney injury, CHF exacerbation, cardiorenal. The patient was transferred to rehab. The patient has been stable. The patient has PAD. Physical Examination: Vital Signs: When I saw the patient, blood pressure 122/67, pulse of 74, afebrile. Chest: Clear to auscultation. Heart: S1, S2 regular. Abdomen: Soft, nontender. Extremities: No edema. Neurologic: Alert, no focality. Lab: Hemoglobin 11.6. Sodium 144, potassium 3.7, bicarb 28, BUN 61, creatinine 1.7. BNP 1900. Albumin 2.8. Current Medications: The patient on include: 1. Metoprolol. 2. tylenol 3. Plavix. 4. Hydralazine. 5. Gabapentin. 6. Bisacodyl. 7. Pantoprazole. Assessment And Plan: 1. Chronic kidney disease secondary to cardiorenal, stable, on the baseline, the patient on room air. I do not see the need for diuresis for the time being. I am going to repeat renal panel and we will follow up the patient closely. 2. Hypertension, controlled, optimal, continue current medication. 3. Deconditioning, continue PT/OT. Time spent examining the patient [id number] reviewing that the lab and the radiology placing orders or discussing the case with the patient discussing the case with the steam drier operator including hospitalist and nursing staff more than 35 minutes LINO Voice ID: [id number] Report ID: [id number] RENETTA
[2023-11-14 07:55] LABS: Albumin 3.1 g/dL (3.4-5.0); Phosphorus 3.4 mg/dL (2.5-4.9); Potassium 4.4 mEq/L (3.5-5.1)
--- NOTE | 2023-11-14 09:50 | P.CNS ---
Date of Consult: 11/14/23 Reason for Consult: painful toenails Allergies apixaban [From Eliquis] Allergy (Verified 11/10/23 17:45) Hives/Rash atorvastatin Allergy (Verified 11/10/23 17:45) Hives ezetimibe [From Vytorin] Allergy (Verified 11/10/23 17:45) Hives/Rash Penicillins Allergy (Verified 11/10/23 17:45) Hives/Rash simvastatin [From Vytorin] Allergy (Verified 11/10/23 17:45) Hives/Rash rivaroxaban [From Xarelto] Adverse Reaction (Verified 11/10/23 17:45) GI BLEED Home Medications: Acetaminophen [Tylenol] 2 tab PO BID 09/13/21 Ascorbic Acid [Vitamin C with Mackenzie Hips] 1 tab PO DAILY 09/13/21 Clopidogrel Bisulfate [Plavix*] 75 mg PO DAILY 09/13/21 Dorzolamide HCl [Trusopt] 1 drop EACH EYE TID 09/13/21 Galantamine HBr [Galantamine ER] 4 mg PO 0900,1800 09/13/21 Memantine HCl 1 tab PO 0900,1800 09/13/21 Metoprolol Tartrate 100 mg PO 0900,1800 09/13/21 Multivit-Minerals/FA/Lycopene [One Daily Tablet] 1 tab PO DAILY 09/13/21 Pantoprazole [Protonix Tab*] 1 tab PO DAILY 09/13/21 Timolol Maleate/Pf [Timolol Maleate 0.5% Eye Drop] 1 drop EACH EYE BID 09/13/21 Vit A,C & E/Lutein/Minerals [Ocuvite Tablet] 1 tab PO DAILY 09/13/21 Zinc 1 tab PO DAILY 09/13/21 Docusate [Colace Cap*] 100 mg PO BID cap 09/19/21 Aspirin [Adult Low Dose Aspirin EC] 81 mg PO DAILY 11/01/23 Coconut Oil 1,000 mg PO 1800 11/01/23 Gabapentin [Neurontin*] 100 mg PO 1800 11/01/23 Glucosamine/D3/Boswellia Kiki [Osteo Bi-Flex Tablet] 1 each PO 0900,1800 11/01/23 Codeine/APAP [Tylenol #3*] 1 tab PO Q6H PRN tab 11/08/23 Hydralazine [Apresoline*] 25 mg PO BID tab 11/08/23 - Past Medical/Surgical History Diabetic: No -: HTN -: High Cholesterol -: Vascular Dementia -: CABG -: Diabetes mellitus type 2 -: CAD -: polio during childhood -: A. Fib -: Triple Bypass -: Aortic Valve Replacement-bovine Psychosocial/ Personal History: Patient currently lives at home alone - Family History Brother Medical History: Heart disease, Other (see notes) Notes: [place] Father Medical History: Heart disease Mother Medical History: Heart disease - Social History Smoking Status: Former smoker Alcohol use: No CD- Drugs: No Caffeine use: Yes Place of Residence: Home Review of Systems 10-point ROS is otherwise unremarkable Physical Examination Temp Pulse Resp BP Pulse Ox 96.1 F L 93 H 18 120/91 H 96 11/14/23 07:56 11/14/23 08:26 11/14/23 07:56 11/14/23 08:26 11/14/23 07:56 General: Alert, In no apparent distress, Oriented x3 Cardiovascular: No edema, Abnormal pulses (0/4 dp and pt pulses bilateral) Capillary refill: >2 Seconds Musculoskeletal: No clubbing, No swelling, No contractures, No erythema, No tenderness, No warmth Integumentary: No rashes, No breakdown, No significant lesion, No tenderness/swelling, No erythema, No warmth, No cyanosis, Other (Thickened hypertrophic bilateral hallux, right 2-4 nails with subungual debris, elongated nails left 2-5 and right 5 digit nails. 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
[2023-11-14] MEDS: FUROSEMIDE 40 MG TABLET PO ONE (19:09)
--- NOTE | 2023-11-14 22:41 | RAD REPORT ---
EXAM DESCRIPTION: RADChest Single View11/14/2023 6:50 pm CLINICAL HISTORY: shortness of breath on exertion COMPARISON: Chest Single View dated 11/10/2023; Abdomen 1 View (KUB) dated 11/09/2023; Chest Single Vie w dated 11/08/2023; Chest Single View dated 11/01/2023 TECHNIQUE: Portable AP view of the chest. FINDINGS: Stable left basilar opacification with suggestion of small effusion. Continued improvement of central venous congestion. No pneumothorax or right-sided effusion. Stable cardiomegaly and sequ elae of CABG. IMPRESSION: Continued improvement of central venous congestion. Otherwise stable findings as above.
--- NOTE | 2023-11-15 01:15 | PN ---
Date of Progress Note: 11/14/2023 Time Of Service: 1:25 p.m. Subjective: Mr. Lubin is resting comfortably in bed in between therapy sessions. Reports did very w ell and has no ongoing complaints. Says he is able to use incentive spirometry machine 10 times arou nd every hour. Review of Systems: No fevers or chills. Mild myalgias, arthralgias. No rash, headache, weight change. No psychiatric complaints. No genitourinary or gastrointestinal complaints. Physical Examination: Vital Signs: Blood pressure 140/68, pulse is 86, respiratory rate of 16, temperature 97.4, oxygen sa turation 95%. General: Mr. Lubin is resting comfortably in bed. He is in no significant distress. HEENT: He appears normocephalic, atraumatic. Sclerae anicteric. Oropharynx pink, moist. Neck: Supple. Chest: Clear. Heart: Regular. Neuro: No focal neurological deficits. Laboratory Studies: White blood cell count 10.3, hemoglobin 11.6. Sodium 138, potassium 4.4, chlori de 108, BUN 42, creatinine 1.64, glucose 102, calcium 10.1, phosphorus 3.4, albumin 3.1, prealbumin 1 8.7. COVID-19 testing on the 30 is negative. His chest x-ray results are pending. He was seen by Dr. Seth Saucedo who addressed his feet and toes. He was diagnosed with tinea unguium and did debri ankur of the nails at bedside. Progress Made With Physical, Occupational, And Speech Therapy: Regarding his physical therapy, he wa s able to ambulate with a rolling walker 350 feet, 175 feet, 125 feet twice with contact guard assist ance. He was able to ascend and descend 15 steps with bilateral handrails with contact guard assista nce. Transfers done with standby assistance. With occupational therapy, bathing supervision, upper body dressing independent, lower body dressing supervision, footwear minimum assistance, grooming ind ependent. With speech, he demonstrated recall of 3 of 3 unrelated pictures after 3 minutes and 2 of 3 after 5 minutes. Deductive reasoning skills used with 70% accuracy and moderate assistance to impr ove problem solving. Mr. Lubin is making good progress so far with physical, occupational, and speech therapy and will lik marbella be able to be back home and continue with home health and help of family. Assessment: Mr. Lubin is an 83-year-old patient in the Rehabilitation Unit with CHF myopathy, atrial fibrillation, chronic kidney disease, decreased mobility, decreased physical functioning, diastolic congestive heart failure, diabetes mellitus type 2, hypertension, peripheral arterial disease, atelec tasis, history of polio. Plan: 1.We will continue with physical, occupational, and speech therapy for 3.5 hours, 5 of 7 days. 2.He has comorbid conditions which are listed above. Continue by addressing his current list of med ications. Comorbidities That Are Continuing To Impact His Rehabilitation: Currently, the shortness of breath i s an issue which is improving. He is encouraged to use incentive spirometry, which he is doing very well. Goals will be to get around 2 L of oxygen per movement. Currently, he is around 1000. LB/MODL Voice ID: [id number] Report ID: [id number]
--- NOTE | 2023-11-15 03:48 | PN ---
Date of Progress Note: 11/14/2023 Chief Complaint: Acute kidney injury, congestive heart failure exacerbation, cardiorenal syndrome. Subjective: The patient today denies complaints. Physical Examination: Lungs: Clear to auscultation bilaterally. Heart: S1, S2. Abdomen: Soft. Extremities: No edema. Impression And Plan: 1.Chronic kidney disease, cardiorenal syndrome, acute kidney injury. Monitor electrolytes closely. 2.Hypertension, controlled, optimal. Continue current medication. 3.Deconditioning. Continue PT/OT. EB/MODL Voice ID: [id number] Report ID: [id number]
[2023-11-15 07:38] LABS: Albumin 3.1 g/dL (3.4-5.0); Phosphorus 3.7 mg/dL (2.5-4.9)
--- NOTE | 2023-11-15 08:04 | P.PN ---
Subjective Date of Service: 11/15/23 Chief Complaint: left foot pain Subjective: No new changes Review of Systems 10-point ROS is otherwise unremarkable Physical Examination - Vital Signs Temperature: 96.9 F Blood Pressure: 135/63 Pulse: 71 Respirations: 18 Pulse Ox (%): 96 - Physical Exam General: Alert, In no apparent distress, Oriented x3 Cardiovascular: No edema, Abnormal pulses Capillary refill: >2 Seconds Musculoskeletal: No clubbing, No contractures, No tenderness, No warmth, Swelling (left midfoot with pain on palpation of area), Erythema Integumentary: No rashes, No breakdown, No significant lesion, No tenderness/swelling, No erythema, No warmth, No cyanosis Neurological: Sensation intact - Studies Laboratory Data (last 24 hrs) 11/15/23 06:49 Sodium 139 Potassium 4.0 BUN 41 H Creatinine 1.62 H Glucose 97 Phosphorus 3.7 Uric acid of 7.3 Imagings Data: review of foot xray performed 11/02/23 reveals no fracture or dislocation, there is a plantar calcaneal spur that is in a different location that the pain. Assessment And Plan - Current Problems (Diagnosis) (1) Tinea unguium Current Visit: Yes Status: Acute (2) half-way (current) use of anticoagulants Current Visit: Yes Status: Acute (3) Onychogryphosis Current Visit: Yes Status: Acute (4) Acute gout Current Visit: Yes Status: Acute - Plan Recommend colchicine for acute gout with Nephrology to dose per renal status Physician Review: Patient Assessed, Agree with Above Assessment and Plan
[2023-11-15] MEDS: allopurinoL 100 MG TAB PO SCH (13:40)
--- NOTE | 2023-11-15 17:12 | PN ---
Date of Progress Note: 11/15/2023 Subjective: Seen by bedside. He was doing physical therapy. I met him in the hallway. Doing well. No significant shortness of breath. No chest pain. No orthopnea, nausea, vomiting or diarrhea. N o other complaints. Review of Systems: No chest pain. Has dyspnea on exertion. No nausea, vomiting, diarrhea. No abdominal pain. No dysu sania, polyuria, or urinary urgency. All other systems reviewed are negative. Physical Examination: Vital Signs: Reviewed. Head and Neck: Pupils are equal, reactive to light. Intact eye movements. No JVD. No cervical lym phadenopathy. Neck: Supple. Thyroid is not enlarged. Lungs: Clear to auscultation bilaterally. No rhonchi, rales, or crackles. No accessory muscle use. Heart: Irregular. No extra sounds. Abdomen: Soft, nontender. Bowel sounds positive. No organomegaly. No masses or hernia. No rigidi ty or rebound. Extremities: No clubbing, cyanosis. Intact pulses. Skin: No rash. Neurologic: Alert, awake, oriented x3. No acute focal deficits appreciated. Investigations: Labs were reviewed. Assessment/recommendation: 1.Acute on chronic congestive heart failure exacerbation. He is off Lasix due to rise in creatinine . I recommend to resume Lasix orally 40 mg daily. Monitor BUN, creatinine, electrolytes, and continue physical therapy. 2.Hypertension. Blood pressure is controlled. /MODL Voice ID: [id number] Report ID: [id number]
[2023-11-16] MEDS: FUROSEMIDE 20 MG TABLET PO SCH (11:34)
[2023-11-16 11:46] VITALS: BP 126/70
--- NOTE | 2023-11-16 13:15 | PN ---
Date of Progress Note: 11/16/2023 Subjective: The patient was admitted to the hospital with congestive heart failure, PAD, acute kidney injury. The patient responded very well. The patient was transferred to rehab for physical therapy. The patient tolerated the rehab very well. Physical Examination: Vital Signs: When I saw the patient, blood pressure of 141/63, pulse of 84, afebrile. Chest: Faint rales bilateral. Heart: S1, S2 regular. Abdomen: Soft, nontender. Extremities: Trace edema. Decreased pulse. Neurologic: Alert. No focality. Current Medications: Aspirin, Plavix, hydralazine 25 b.i.d., metoprolol, gabapentin. Assessment And Plan: 1. Acute kidney injury secondary to cardiorenal. Slightly on the wet side. We will resume Lasix 20 mg daily. 2. Hypertension, controlled, optimal. Continue current treatment. 3. Gout. Start allopurinol. We will follow up. 4. Deconditioning. Continue PT/OT. 5. Congestive heart failure with exacerbation as above. Time spent examining the patient [id number] reviewing that the lab and the radiology placing orders or discussing the case with the patient discussing the case with the steamer blocker including hospitalist and nursing staff more than 35 minutes LINO Voice ID: [id number] Report ID: [id number] RENETTA
--- NOTE | 2023-11-16 19:36 | PN ---
Date of Progress Note: 11/16/2023 Time Of Service: 1:10 p.m. Subjective: Mr. Lubin is resting comfortably. He is in no distress. He is ready for discharge very soon. He has no new complaints. He is very happy with therapy using incentive spirometry, mobilizi ng well. Review of Systems: He denies any significant fevers, chills, nausea, vomiting. He is worried about increased swelling o f lower extremities, but that is not noted to be very significant. No genitourinary or gastrointesti nal complaints. Physical Examination: Vital Signs: Blood pressure 126/70, pulse 83, respiratory rate 16, temperature 97, oxygen saturation 95%. General: Mr. Lubin is sitting in a wheelchair as he actually is rolling the wheelchair out of the ro om. HEENT: He appears normocephalic, atraumatic. Sclerae anicteric. Oropharynx pink, moist. Neck: Supple. Chest: Clear. Heart: Regular. Extremities: No significant edema or cyanosis noted. Neuro: He has no focal neurologic deficits. He has improved strength in the lower extremities. Laboratory Studies: Yesterday, his uric acid level was normal at 10.0 and sodium 139, potassium 4.0, chloride 108, carbon dioxide 28, BUN 41, creatinine 1.62, glucose 97, calcium 9.6, phosphorus 3.7, a lbumin 2.1. His beta-natriuretic peptide 23,792. COVID-19 testing on the was negative. X-ray/imaging: No new x-rays or imaging. Medications: Medications have been reviewed and are unchanged. Progress Made With His Physical And Occupational Therapy: Today, with physical therapy, he covered 5 00 feet once, 350 feet twice, and 175 feet twice with standby assistance, is able to ascend and desce nd 15 steps with standby assistance holding onto bilateral handrails. Again, he is ready for dischar . Regarding occupational therapy, he has demonstrated independence with his activities of daily li ving including washing his hands and face, brushing hair, shaving, completing oral care while standin g at the sink. He is able to don and doff his pants independently donning socks independently. With his speech, he showed improved performance on the BIMs from a 9 to a 15 and the SLUMS from a 16 to a 20. His improvement areas include short-term recall, calculation, word fluency, and working mem ory. Mr. Lubin is doing very well, made an excellent progress, and is to be ready for discharge today. Assessment: Mr. Lubin is an 83-year-old patient admitted to the rehabilitation unit with CHF myopath y that is improving very well. He has atrial fibrillation, chronic kidney disease, decreased mobilit y, decrease in physical functioning, diastolic congestive heart failure, diabetes mellitus type 2, hy pertension, peripheral artery disease, and atelectasis along with history of polio. Plan: 1.We will continue with physical, occupational, and speech therapy for 3.5 hours, 5 of 7 days. 2.He has multiple comorbid condition medications which are used to address his comorbid conditions a s noted above and those are stably managed. Comorbidities That Are Continuing To Impact His Rehabilitation: His ability to oxygenate well is act ually improving as he used incentive spirometry and it is not stopping him from doing very well. He is moving air very well or a liter as he does care his incentive spirometry. LB/MODL Voice ID: [id number] Report ID: [id number]
[2023-11-16 21:05] VITALS: TEMP 98.4
--- NOTE | 2023-12-04 21:15 | DS ---
Date of Discharge: 11/16/2023 Discharge Condition: Good. Discharge Activity: Weightbearing as tolerated that is renal and heart healthy. Allergies: APIXABAN, RIVAROXABAN, ATORVASTATIN, EZETIMIBE, PENICILLIN, AND SIMVASTATIN. Medications: Tylenol Extra Strength 500 mg every 4 hours, amiodarone 200 mg twice daily, Eliquis 5 m g twice daily, clindamycin 600 mg every 8 hours, Plavix 75 mg daily, Colace 100 mg twice daily, Lasix 20 mg daily, gabapentin 100 mg twice daily, Apresoline 25 mg twice daily, melatonin 5 mg at bedtime, levofloxacin 750 mg every 8 hours, Lopressor 50 mg twice daily, Centrum 1 tablet daily, Ocuvite 1 ta blet daily, Ensure Enlive 237 mL twice daily, Zofran 4 mg every 6 hours as needed, Protonix 40 mg shalom ly. Laboratory Studies: White blood cell 10.3, hemoglobin 11.6, platelets 309. Sodium 139, potassium 4. 0, chloride 108, carbon dioxide 28, BUN 41, creatinine 1.62, glucose 79. Uric acid 7.0. Albumin 3.1 . Beta natriuretic peptide 2792. COVID-19 testing on 11/08/2023 is negative. Synopsis Of Events That Led To Admission: Mr. Lubin is an 83-year-old patient who was initially seen in the emergency room for lower extremity pain and weakness. He was found to have significant perip heral arterial disease, but was not a surgical candidate. In addition, he was found to have chronic renal failure with elevated creatinine at 2.32, BUN of 56. BNP of 26,005. Chest x-ray showed pleura l effusion with atelectasis and the Doppler study of the lower extremity did show monophasic flow thr oughout the right lower extremity, which could indicate proximal [id number] stenosis of the i liac vessels. His left lower extremity biphasic flow and left common femoral and superficial femoral arteries, had monophasic flow indicating moderate to high-grade stenosis. 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 Did have mild lower extremity edema. He was evaluated by the cardiology and renal service. He received diuretics, statin, hypertensive medication management. He does have a history of polio and dementia. As a result of his multiple comorbid conditions and significant inna ility, he was felt to be an appropriate candidate for inpatient rehabilitation, therefore admitted to the inpatient rehabilitation unit for physical, occupational, and speech therapy. While hospitalize d, he is followed by renal service and also seen by Dr. Gill on cardiology service and Dr. Saucedo on the podiatry service. The cardiology service diagnosed acute on chronic congestive heart failure. He resumed Lasix [address] Saucedo saw the patient on November 15 and diagnosed with tinea ungui um and onychogryphosis and acute gout. He was again followed by the renal service who on the evaluated the patient and diagnosis with acute kidney injury secondary to cardiorenal issues. Di d resume Lasix as noted above by Cardiology as well. They did start allopurinol. Progress Made With Physical And Occupational Therapy: By hospital discharge, with physical therapy, he was able to ambulate 500 feet within functional limits with a rolling walker. He was able to go d own 15 steps with bilateral handrails. He did meet all the short-term and long-term goals and was ab le to ambulate safety without physical assistance being required. Regarding occupational therapy by discharge, independent with grooming, eating, upper and lower body dressing, toileting, donning and d offing shoes and was found to met all of his short-term and long-term goals with occupational therapy . He is discharged home with durable medical equipment needs met. With speech therapy, minimum assi st for pragmatics, moderate assist for memory, independent for comprehension and expression with 100% intelligibility. He did improve his BIMS score from 9 to 15. SLUMS score improved from 16 to 20. Followup is with renal service, cardiology service, and primary care physician as scheduled. CAROLEE/REBEKAH Voice ID: [id number] Report ID: [id number]
== END 2023-11-16 17:30 | disposition home health service (06) | DRG 91 ==
LOC: 5TH 15:25
PROVIDERS: ADMIT Psychiatry & Neurology Neurology with Special Qualifications in Child Neurology; ATTEND Psychiatry & Neurology Neurology with Special Qualifications in Child Neurology
DX: G72.89 Other specified myopathies (principal); I50.33 Acute on chronic diastolic (congestive) heart failure; I50.30 Unspecified diastolic (congestive) heart failure; N17.9 Acute kidney failure, unspecified; J98.11 Atelectasis; I13.0 Hypertensive heart and chronic kidney disease with heart failure and stage 1 through stage 4 chronic kidney disease, or unspecified chronic kidney disease; I73.9 Peripheral vascular disease, unspecified; E78.5 Hyperlipidemia, unspecified; I25.10 Atherosclerotic heart disease of native coronary artery without angina pectoris; B35.1 Tinea unguium; L60.2 Onychogryphosis; M77.30 Calcaneal spur, unspecified foot; M10.9 Gout, unspecified; F01.50 Vascular dementia, unspecified severity, without behavioral disturbance, psychotic disturbance, mood disturbance, and anxiety; E87.6 Hypokalemia; E11.22 Type 2 diabetes mellitus with diabetic chronic kidney disease; N18.9 Chronic kidney disease, unspecified; I48.91 Unspecified atrial fibrillation; F03.90 Unspecified dementia, unspecified severity, without behavioral disturbance, psychotic disturbance, mood disturbance, and anxiety; Z95.1 Presence of aortocoronary bypass graft; Z86.12 Personal history of poliomyelitis; Z95.2 Presence of prosthetic heart valve; Z79.01 Long term (current) use of anticoagulants
CPT/HCPCS: 36415; 71045; 74018; 80048; 80069; 81001; 82040; 83036; 83735; 83880; 84134; 84550; 85025; 87086; 87088; 87635; 92523; 94010; 97110; 97116; 97129; 97163; 97165; 97530; 97535; 97542; J2001

== ENCOUNTER 2023-12-10 19:51 | Inpatient (IN) | payer OTHER ==
[2023-12-10 21:08] VITALS: BMI 24.1
[2023-12-10] MEDS: HYDROMORPHONE HCL 1 MG/ML INJ IV SCH (21:26)
[2023-12-10] MEDS: SCOPOLAMINE HYDROBROMIDE PATCH TD SCH (21:31)
--- NOTE | 2023-12-11 18:08 | P.HP ---
Certification for Inpatient Patient admitted to: Inpatient Practitioner: I am a practitioner with admitting privileges, knowledge of patient current condition, hospital course, and medical plan of care. Services: Services provided to patient in accordance with Admission requirements found in Title 42 Section 412.3 of the Code of Federal Regulations Patient History Date of Service: 12/10/23 Reason for admission: NURSE CALLED ME ON 12/09 FOR URGENT ADMISSION TO HOSPICE. History of Present Illness: DR. BULL ASKED [facility] TO ADMIT THE PATIENT FOR MAJOR STROKE. 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 . HE WAS SEEN BY PAS OF DR. DE LA ROSA. DR. BULL CALLED IN [facility] ON TUESDAY PM AND NURSE FROM [facility] CALLED ME TO URGENTLY EVALUATE PER HIS REQUEST. I DID A TELEHEALTH VISIT AND DECIDED WITH [facility] NURSE THAT WITH A LARGE STROKE AND RAPIDLY WORSENING MENTAL STATUS WE WILL ADMIT HIM. IN THIS ACUTE CONDITION WITH NOT BEING ABLE TO TAKE ORAL MEDICATIONS HIS SYMPTOMS OF TERMINAL DISTRESS WILL NOT BE CONTROLLED AT HOME. Allergies atorvastatin Allergy (Verified 11/10/23 17:45) Hives ezetimibe [From Vytorin] Allergy (Verified 11/10/23 17:45) Hives/Rash Penicillins Allergy (Verified 11/10/23 17:45) Hives/Rash simvastatin [From Vytorin] Allergy (Verified 11/10/23 17:45) Hives/Rash rivaroxaban [From Xarelto] Adverse Reaction (Verified 11/10/23 17:45) GI BLEED Home medications list reviewed: Yes Home Medications: NK [No Home Meds] 12/11/23 - Past Medical/Surgical History Has patient received pneumonia vaccine in the past: Yes Diabetic: No -: HTN -: High Cholesterol -: Vascular Dementia -: CABG -: Pre-Diabetic -: CAD -: polio during childhood -: A. Fib -: Chronic diastolic congestive heart failure -: Triple Bypass -: Aortic Valve Replacement-bovine Psychosocial/ Personal History: Patient currently lives at home alone - Family History Brother -: Heart disease, Other (see notes) Notes: ID Father -: Heart disease Mother -: Heart disease - Social History Smoking Status: Former smoker Alcohol use: No CD- Drugs: No Caffeine use: No Place of Residence: Home Review of Systems is unable to be obtained Physical Examination - Vital Signs Temperature: 98.6 F Blood Pressure: 112/50 Pulse: 57 Respirations: 15 Pulse Ox (%): 94 - Physical Exam General: Unresponsive, Comatose (NO REPSONSE TO PAINFUL STIMULUS) HEENT: Atraumatic, PERRLA, Mucous membr. moist/pink, EOMI, Sclerae nonicteric Neck: Supple, 2+ carotid pulse no bruit, No LAD, Without JVD or thyroid abnormality Respiratory: Clear to auscultation bilaterally, Normal air movement Cardiovascular: Regular rate/rhythm, Normal S1 S2 Gastrointestinal: Normal bowel sounds, No tenderness Musculoskeletal: No tenderness Integumentary: No rashes Neurological: Other (COMATOSE, NO PUPILLARY REACTION. 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 LIFE MAY BE LESS THAN 5 DAYS. (2) History of atrial fibrillation Current Visit: Yes Status: Chronic (3) Coronary artery disease due to type 2 diabetes mellitus Current Visit: Yes Status: Chronic - Advance Directives Does patient have a Living Will: Yes Does patient have a Durable POA for Healthcare: Yes
--- NOTE | 2023-12-11 18:25 | P.PN ---
Subjective Date of Service: 12/11/23 Chief Complaint: COMATOSE WITH STROKE Subjective: Worsening NOT ABLE TO OBTAIN Review of Systems is unable to be obtained Physical Examination - Vital Signs Temperature: 98.6 F Blood Pressure: 112/50 Pulse: 57 Respirations: 15 Pulse Ox (%): 94 - Physical Exam General: Comatose Neck: Supple, Without JVD or thyroid abnormality Respiratory: Clear to auscultation bilaterally (RAPID WITH PAUSES. OXYGEN ON. ) Cardiovascular: Normal S1 S2 Gastrointestinal: Absent bowel sounds Neurological: Other (COMATOSE. NO MOVEMENT ON PAINFUL STIMULUS. 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 LIFE MAY BE LESS THAN 5 DAYS. I ALREADY SEE PAUSES IN BREATHING. HE IS NOT IN ANY PAIN WITH CURRENT MANAGEMENT. 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
--- NOTE | 2023-12-12 12:47 | P.PN ---
Subjective Date of Service: 12/12/23 Chief Complaint: COMATOSE WITH STROKE Subjective: Worsening NOT ABLE TO OBTAIN RAPID BREATHING CONTINUES SOME PAUSES. Review of Systems is unable to be obtained Physical Examination - Vital Signs Temperature: 98.1 F Blood Pressure: 179/75 Pulse: 66 Respirations: 22 Pulse Ox (%): 96 - Physical Exam General: Moderate distress, Unresponsive HEENT: Atraumatic, PERRLA, EOMI Neck: Supple, JVD not distended Respiratory: Clear to auscultation bilaterally, Normal air movement Cardiovascular: Regular rate/rhythm, Normal S1 S2 Gastrointestinal: Normal bowel sounds, No tenderness Musculoskeletal: No tenderness Integumentary: No rashes Neurological: Other (COMATOSE.) Lymphatics: No axilla or inguinal lymphadenopathy - Studies Medications List Reviewed: Yes Assessment And Plan - Current Problems (Diagnosis) (1) 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 LIFE MAY BE LESS THAN 5 DAYS. I ALREADY SEE PAUSES IN BREATHING. HE IS NOT IN ANY PAIN WITH CURRENT MANAGEMENT. AT THIS POINT WE SHOULD DC OXYGEN TO AVOID PROLONGATION OF HIS JENNY. I CALLED DAUGHTER KEVIN APPIAH AND LEFT MESSAGE. 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
--- NOTE | 2023-12-13 08:21 | P.PN ---
Subjective Date of Service: 12/13/23 Chief Complaint: COMATOSE WITH STROKE Subjective: Worsening NOT ABLE TO OBTAIN RAPID BREATHING CONTINUES SOME PAUSES. HE IS MORE HYPOXIC NOW AND BREATHING IS MUCH MORE RAPID HE IS COMFORTABLE WITH PAIN AND DISTRESS MEDS. Review of Systems is unable to be obtained Physical Examination - Vital Signs Temperature: 99.5 F Blood Pressure: 130/61 Pulse: 71 Respirations: 16 Pulse Ox (%): 85 - Physical Exam General: Comatose HEENT: Atraumatic, PERRLA, EOMI Neck: Supple, JVD not distended Respiratory: Diminished (RAPID AND FAST.) Cardiovascular: Regular rate/rhythm, Normal S1 S2 Gastrointestinal: Normal bowel sounds, No tenderness Musculoskeletal: No tenderness Integumentary: No rashes Neurological: Normal speech, Normal tone, Normal affect Lymphatics: No axilla or inguinal lymphadenopathy - Studies Medications List Reviewed: Yes Assessment And Plan - Current Problems (Diagnosis) (1) 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 LIFE MAY BE LESS THAN 5 DAYS. I ALREADY SEE PAUSES IN BREATHING. HE IS NOT IN ANY PAIN WITH CURRENT MANAGEMENT. AT THIS POINT WE SHOULD DC OXYGEN TO AVOID PROLONGATION OF HIS JENNY. I CALLED DAUGHTER KEVIN APPIAH AND LEFT MESSAGE. HYPOXIC AND I SUSPECT HE MAY HAVE ONE DAY OR LESS TO LIVE NOW. 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
[2023-12-13] MEDS: ACETAMINOPHEN 650MG/RECT SUPP PR PRN (22:05)
--- NOTE | 2023-12-14 12:18 | P.PN ---
Subjective Date of Service: 12/14/23 Chief Complaint: COMATOSE WITH STROKE NOT ABLE TO OBTAIN RAPID BREATHING CONTINUES SOME PAUSES. HE IS MORE HYPOXIC NOW AND BREATHING IS MUCH MORE RAPID HE IS COMFORTABLE WITH PAIN AND DISTRESS MEDS. RAPID BREATHING ABDOMEN DISTENDED. 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 LIFE MAY BE LESS THAN 5 DAYS. I ALREADY SEE PAUSES IN BREATHING. HE IS NOT IN ANY PAIN WITH CURRENT MANAGEMENT. AT THIS POINT WE SHOULD DC OXYGEN TO AVOID PROLONGATION OF HIS JENNY. I CALLED DAUGHTER KEVIN APPIAH AND LEFT MESSAGE. HYPOXIC AND I SUSPECT HE MAY HAVE ONE DAY OR LESS TO LIVE NOW. COMFORTABLE RAPID BREATHING NO PAUSES YET CONT MEDS DULCOLAX FOR CONSTIPATION. 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
[2023-12-14] MEDS: BISACODYL 10 MG RECTAL SUPP PR ONE (14:21)
[2023-12-15 00:32] VITALS: O2SAT 86
--- NOTE | 2023-12-15 21:24 | P.PN ---
Subjective Date of Service: 12/15/23 Chief Complaint: COMATOSE WITH STROKE Subjective: Worsening NOT ABLE TO OBTAIN RAPID BREATHING CONTINUES SOME PAUSES. HE IS MORE HYPOXIC NOW AND BREATHING IS MUCH MORE RAPID HE IS COMFORTABLE WITH PAIN AND DISTRESS MEDS. RAPID BREATHING ABDOMEN DISTENDED. MORE HYPOXIC MORE RAPID BREATHING. 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 LIFE MAY BE LESS THAN 5 DAYS. I ALREADY SEE PAUSES IN BREATHING. HE IS NOT IN ANY PAIN WITH CURRENT MANAGEMENT. AT THIS POINT WE SHOULD DC OXYGEN TO AVOID PROLONGATION OF HIS JENNY. I CALLED DAUGHTER KEVIN APPIAH AND LEFT MESSAGE. HYPOXIC AND I SUSPECT HE MAY HAVE ONE DAY OR LESS TO LIVE NOW. COMFORTABLE RAPID BREATHING NO PAUSES YET CONT MEDS DULCOLAX FOR CONSTIPATION. PROGRESSIVELY WORSE. 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
--- NOTE | 2023-12-16 12:55 | P.PN ---
Subjective Date of Service: 12/16/23 Chief Complaint: COMATOSE WITH STROKE Subjective: Worsening NOT ABLE TO OBTAIN RAPID BREATHING CONTINUES SOME PAUSES. HE IS MORE HYPOXIC NOW AND BREATHING IS MUCH MORE RAPID HE IS COMFORTABLE WITH PAIN AND DISTRESS MEDS. RAPID BREATHING ABDOMEN DISTENDED. MORE HYPOXIC MORE RAPID BREATHING. WORSE THAN YEST. Review of Systems is unable to be obtained Physical Examination - Vital Signs Temperature: 99.8 F Blood Pressure: 109/53 Pulse: 90 Respirations: 12 Pulse Ox (%): 69 - Physical Exam General: Comatose HEENT: Atraumatic, PERRLA, EOMI Neck: Supple, JVD not distended Respiratory: Clear to auscultation bilaterally, Normal air movement Cardiovascular: Regular rate/rhythm Gastrointestinal: Normal bowel sounds, No tenderness Musculoskeletal: No tenderness Integumentary: No rashes Neurological: Other (COMATOSE, PUPILS FIXED. 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 LIFE MAY BE LESS THAN 5 DAYS. I ALREADY SEE PAUSES IN BREATHING. HE IS NOT IN ANY PAIN WITH CURRENT MANAGEMENT. AT THIS POINT WE SHOULD DC OXYGEN TO AVOID PROLONGATION OF HIS JENNY. I CALLED DAUGHTER KEVIN APPIAH AND LEFT MESSAGE. HYPOXIC AND I SUSPECT HE MAY HAVE ONE DAY OR LESS TO LIVE NOW. COMFORTABLE RAPID BREATHING NO PAUSES YET CONT MEDS DULCOLAX FOR CONSTIPATION. PROGRESSIVELY WORSE. MAY PASS TODAY. 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
--- NOTE | 2023-12-17 11:05 | P.PN ---
Subjective Date of Service: 12/17/23 Chief Complaint: COMATOSE WITH STROKE Subjective: Worsening COMATOSE, RAPID BREATHING. Review of Systems is unable to be obtained Physical Examination - Vital Signs Temperature: 97.1 F Blood Pressure: 130/62 Pulse: 64 Respirations: 12 Pulse Ox (%): 88 - Physical Exam General: Moderate distress, Comatose Neck: Supple, JVD not distended (DEHYDRATION EXPECTED.) Cardiovascular: Normal S1 S2 Neurological: Other (COMATOSE. 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 LIFE MAY BE LESS THAN 5 DAYS. DAUGHTER AT BEDSIDE COMATOSE DOWN TO 66% O2 AT TIMES. 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
[2023-12-18] MEDS: BISACODYL 10 MG RECTAL SUPP PR PRN (16:21)
--- NOTE | 2023-12-18 21:06 | P.PN ---
Subjective Date of Service: 12/18/23 Chief Complaint: COMATOSE WITH STROKE COMATOSE, RAPID BREATHING. STILL COMATOSE. RESPONSE ONCE IN A WHILE WITH OPEN EYES. 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 LIFE MAY BE LESS THAN 5 DAYS. STILL LINGERING STILL COMATOSE. 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
[2023-12-19] MEDS: LORazepam 2 MG/ML VIAL IV PRN (10:55)
--- NOTE | 2023-12-19 17:06 | P.PN ---
Subjective Date of Service: 12/19/23 Chief Complaint: COMATOSE WITH STROKE Subjective: No new changes HE IS NOT RESPONSIVE BUT OPENS EYES AT TIMES. 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 LIFE MAY BE LESS THAN 5 DAYS. STILL LINGERING STILL COMATOSE. SEEMS TO HAVE STABILIZED BUT STILL HOSPICE APPRPRIATE AT HOME. I TALKED TO HOSPICE [facility] AND THEY TALKED TO FAMILY ABOUT HOME OR NH WITH HOSPICE. 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
[2023-12-19 22:24] VITALS: BP 124/60; TEMP 98.7
--- NOTE | 2023-12-20 12:17 | P.DS ---
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 BULL ASKED [facility] TO ADMIT THE PATIENT FOR MAJOR STROKE. 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 . HE WAS SEEN BY PAS OF DR. DE LA ROSA. DR. BULL CALLED IN [facility] ON TUESDAY PM AND NURSE FROM [facility] CALLED ME TO URGENTLY EVALUATE PER HIS REQUEST. I DID A TELEHEALTH VISIT AND DECIDED WITH [facility] NURSE THAT WITH A LARGE STROKE AND RAPIDLY WORSENING MENTAL STATUS WE WILL ADMIT HIM. IN THIS ACUTE CONDITION WITH NOT BEING ABLE TO TAKE ORAL MEDICATIONS HIS SYMPTOMS OF TERMINAL DISTRESS WILL NOT BE CONTROLLED AT HOME. Hospital Course: MR VEGA SUFFERED MAJOR FRONTAL STROKE FROM A FIB. HE NEEDED IN HOSPITAL CARE FOR ONGOING SECRETIONS RELATED DISTRESS NEEDING IV MEDS. HE TODAY AT 4 AM OR SO EXPECTED. Vital Signs/Physical Exam: Temp Pulse Resp BP Pulse Ox 98.7 F 72 13 124/60 86 L 12/19/23 20:00 12/19/23 20:00 12/19/23 20:00 12/19/23 20:00 12/19/23 20:00 Home Medications: NK [No Home Meds] 12/11/23 Followup: Ahsan Michel MD [Primary Care Provider] -
== END 2023-12-20 04:45 | disposition expired | DRG 951 ==
LOC: 2ND 19:51
PROVIDERS: ADMIT Internal Medicine; ATTEND Internal Medicine
DX: Z51.5 Encounter for palliative care (principal)
CPT/HCPCS: J1170